=== PATIENT | male | born 1950 | race Caucasian/White ===

== ENCOUNTER → 2016-04-25 | Outpatient (CLI) | payer MEDICARE, OTHER ==
[~2016-04-25] MED LIST: ALTA10CA OR; AMLO5TAB; AMLO5TAB OR; ANTARA; ANTARA PO; ASPI325T; BACT800T OR; CARV25TA; CARV25TA OR; CITA20TA4 PO; CORE12.5; CORE20CA; CORE25TA; CORE80CA; CORE80CA OR; DIOV320T; DIOV320T OR; DOXY-278 PO; DOXY100C PO; FLOM5CAP PO; GABA300C3 PO; GLUC1000; GLUC1000 OR; GLYBPOW; HYDR25TAB PO; INSUHUMDS SC; INSULANT; INSULANT SC; KEFL500C OR; LEVE1INJ5 SC; LISI40TAB PO; NORV5TAB PO; PLAV75TA38 PO; REMIPRIL; TYLE1TAB5 PO; VYTO10TA5; VYTO10TA5 OR; ZOCO40TA; [UNRECOGNIZED DRUG - CODE]
[2016-04-25 12:33] LABS: MEAN CORPUSCULAR HEMOGLOBIN 29.6 pg (27.0-33.0); MEAN CORPUSCULAR HGB CONC 33.5 g/dl (32.0-36.5); MEAN CORPUSCULAR VOLUME 88.4 fl (80.0-96.0); RED CELL DISTRIBUTION WIDTH 14.1 % (11.5-14.5)
[2016-04-25 13:27] LABS: ALBUMIN 3.1 GM/DL (3.2-5.2); ALKALINE PHOSPHATASE 99 U/L (45-117); ALT/SGPT 12 U/L (12-78); ANION GAP 11 MEQ/L (8-16); AST/SGOT 15 U/L (15-37); BILIRUBIN,DIRECT < 0.1 MG/DL (0.0-0.2); BILIRUBIN,TOTAL 0.5 MG/DL (0.2-1.0); BLOOD UREA NITROGEN 21 MG/DL (7-18); CALCIUM LEVEL 8.7 MG/DL (8.8-10.2); CARBON DIOXIDE LEVEL 23 MEQ/L (21-32); CHLORIDE LEVEL 109 MEQ/L (98-107); CREATININE FOR GFR 0.87 MG/DL (0.70-1.30); GLOMERULAR FILTRATION RATE > 60.0 (>49); GLUCOSE, FASTING 136 MG/DL (80-110); PHOSPHORUS LEVEL 2.9 MG/DL (2.5-4.9); POTASSIUM SERUM 4.3 MEQ/L (3.5-5.1); SODIUM LEVEL 143 MEQ/L (136-145); TOTAL PROTEIN 7.5 GM/DL (6.4-8.2)
== END ==
LOC: M LAB 11:37
PROVIDERS: ATTEND Nurse Practitioner Family
DX: I11.9 Hypertensive heart disease without heart failure (principal)

== ENCOUNTER → 2016-04-25 | Outpatient (CLI) | payer MEDICARE, OTHER | LOC: M LAB 10:09 | PROVIDERS: ATTEND Internal Medicine Infectious Disease | DX: M86.9 Osteomyelitis, unspecified (principal) ==

== ENCOUNTER → 2016-05-09 | Outpatient (CLI) | payer OTHER ==
[~2016-05-09] MED LIST changes: -DOXY-278 PO; -HYDR25TAB PO; -LEVE1INJ5 SC; -NORV5TAB PO
[2016-05-09 16:37] LABS: BASO # 0.2 K/mm3 (0.0-0.2); BASO % 1.7 % (0.0-1.0); EOS # 0.3 K/mm3 (0.0-0.50); EOS % 3.5 % (0.0-3.0); LARGE UNSTAINED CELL # 0.2 K/mm3 (0.0-0.4); LYMPH # 2.4 K/mm3 (1.5-4.5); LYMPH % 24.8 % (24.0-44.0); MEAN CORPUSCULAR HEMOGLOBIN 30.3 pg (27.0-33.0); MEAN CORPUSCULAR HGB CONC 33.4 g/dl (32.0-36.5); MEAN CORPUSCULAR VOLUME 90.7 fl (80.0-96.0); MONO # 0.6 K/mm3 (0.0-0.8); MONO % 6.7 % (0.0-5.0); NEUTROPHILS # 5.6 K/mm3 (1.8-7.7); NEUTROPHILS % 61.3 % (36.0-66.0); PLATELET COUNT, AUTOMATED 204 k/mm3 (150-450); RED CELL DISTRIBUTION WIDTH 14.2 % (11.5-14.5); WHITE BLOOD COUNT 9.1 K/mm3 (4.0-10.0)
[2016-05-09 17:13] LABS: ALBUMIN 3.2 GM/DL (3.2-5.2); ALBUMIN/GLOBULIN RATIO 0.71 (1.00-1.93); ALKALINE PHOSPHATASE 115 U/L (45-117); ALT/SGPT 13 U/L (12-78); ANION GAP 8 MEQ/L (8-16); AST/SGOT 10 U/L (15-37); BILIRUBIN,TOTAL 0.8 MG/DL (0.2-1.0); BLOOD UREA NITROGEN 17 MG/DL (7-18); CALCIUM LEVEL 8.8 MG/DL (8.8-10.2); CARBON DIOXIDE LEVEL 30 MEQ/L (21-32); CHLORIDE LEVEL 103 MEQ/L (98-107); CHOLESTEROL LEVEL 107 MG/DL (<200); CREATININE FOR GFR 0.93 MG/DL (0.70-1.30); GLOMERULAR FILTRATION RATE > 60.0 (>49); GLUCOSE, FASTING 148 MG/DL (80-110); SODIUM LEVEL 141 MEQ/L (136-145); TOTAL PROTEIN 7.7 GM/DL (6.4-8.2); TRIGLYCERIDES LEVEL 116 MG/DL (<150)
== END ==
LOC: M LAB 15:35
PROVIDERS: ATTEND Physician Assistant Medical
DX: E11.9 Type 2 diabetes mellitus without complications (principal)

== ENCOUNTER → 2016-05-23 | Outpatient (CLI) | payer MEDICARE, OTHER ==
[~2016-05-23] VITALS: Ht 175.3 cm; Wt 87.9 kg
[~2016-05-23] MED LIST changes: +D5W 1,000 ML IV SCH; +DOXY-278 PO; +HYDR25TAB PO; +LEVE1INJ5 SC; +LIDOCAINE VISCOUS 2% SOLN 15ML UDC As Ordered ONE; +MIDAZOLAM INJ 2 MG/2 ML VIAL (J2250) As Ordered ONE; +NORV5TAB PO
[2016-05-23 15:44] VITALS: BP 145/68
--- NOTE | 2016-05-23 15:45 | T-ECHO ---
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 POSTPROCEDURE DIAGNOSES: Mild aortic valve sclerosis. FINDINGS: Mild aortic valve sclerosis, otherwise normal heart. The presence of moderate atheroma involving the distal aortic arch and descending thoracic aorta. PROCEDURE: Transesophageal echocardiogram without saline contrast. SURGEON: Bolivar Morgan MD JAPANESE INTERPRETER: None. SEDATION: Light conscious sedation with midazolam 4 mg IV. COMPLICATIONS: None. DESCRIPTION OF PROCEDURE: Rhythm appeared to be sinus. The patient received viscous lidocaine to gargle prior to the start of the procedure. He received a total of 4 mg of midazolam IV for light conscious sedation. The patient tolerated the procedure well without any immediate complications. Esophageal intubation was accomplished without difficulty using a Becka multiplane two-dimensional transesophageal echocardiogram probe. The left and right ventricles appeared normal in size and systolic function and without regional wall motion abnormalities. Atrial septum appeared intact anatomically and by color flow Doppler. Pulmonary vein connections to the left atrium were normal and pulmonary vein flow in the left upper pulmonary vein was normal. No intracardiac masses or thrombi. Left atrial appendage appeared normal. The aortic valve was three-cuspid and displayed mild focal thickening and focal cusp deposits. No aortic regurgitation. Mitral leaflets were structurally and functionally normal. Very mild mitral regurgitation was present and within normal limits. Tricuspid and pulmonic valves only moderately visualized but appeared structurally normal. No pericardial effusion. Distally aortic arch and descending thoracic aorta showed mild atheroma without mobile components. CONCLUSIONS: 1. 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 No aortic regurgitation. 2. No vegetations. 3. Moderate atheroma involving distal aortic arch and descending thoracic aorta. 4. Normal left ventricle size and systolic function.
== END ==
LOC: M OPP 13:49
PROVIDERS: ATTEND Internal Medicine Cardiovascular Disease
DX: R93.1 Abnormal findings on diagnostic imaging of heart and coronary circulation (principal); I35.9 Nonrheumatic aortic valve disorder, unspecified; I70.0 Atherosclerosis of aorta
CPT/HCPCS: 93312; 93320; 93325; J2250

== ENCOUNTER → 2016-09-05 | Outpatient (REF) | payer MEDICARE, OTHER ==
[~2016-09-05] MED LIST changes: +ATOR80TA59 PO; +BACT800T5 PO; +CARV3.12 PO; +CLEO300C2 PO; -D5W 1,000 ML IV SCH; +GABA-282 PO; -GABA300C3 PO; -LIDOCAINE VISCOUS 2% SOLN 15ML UDC As Ordered ONE; +LISI40TAB; +METF500T13 PO; -MIDAZOLAM INJ 2 MG/2 ML VIAL (J2250) As Ordered ONE; +NAPR250T4 PO; +OMEP20CA3; +PLAV1TAB2 PO; -PLAV75TA38 PO
[2016-09-05 13:30] LABS: ALBUMIN 3.2 GM/DL (3.2-5.2); ALKALINE PHOSPHATASE 118 U/L (45-117); ALT/SGPT 14 U/L (12-78); ANION GAP 7 MEQ/L (8-16); AST/SGOT 13 U/L (15-37); BILIRUBIN,TOTAL 0.2 MG/DL (0.2-1.0); BLOOD UREA NITROGEN 12 MG/DL (7-18); CALCIUM LEVEL 8.6 MG/DL (8.8-10.2); CARBON DIOXIDE LEVEL 29 MEQ/L (21-32); CHLORIDE LEVEL 107 MEQ/L (98-107); CREATININE FOR GFR 0.93 MG/DL (0.70-1.30); GLOMERULAR FILTRATION RATE > 60.0 (>49); GLUCOSE, FASTING 143 MG/DL (80-110); POTASSIUM SERUM 4.2 MEQ/L (3.5-5.1); SODIUM LEVEL 143 MEQ/L (136-145); TOTAL PROTEIN 7.2 GM/DL (6.4-8.2)
== END ==
LOC: M LAB REF 12:41
PROVIDERS: ATTEND Nurse Practitioner Family
DX: E11.9 Type 2 diabetes mellitus without complications (principal)

== ENCOUNTER → 2016-10-09 | Outpatient (CLI) | payer MEDICARE, OTHER ==
[~2016-10-09] MED LIST changes: +ATOR1TAB18 PO; -ATOR80TA59 PO; -CARV3.12 PO; -CLEO300C2 PO; -LISI40TAB; +METF500T PO; -METF500T13 PO; -NAPR250T4 PO; -OMEP20CA3; -PLAV1TAB2 PO; +PLAV75TA38 PO
--- NOTE | 2016-10-09 14:21 | REP ---
Clinical: Type 2 diabetes. Comparison: 04/14/2016 . Technique: PA and lateral. Findings: The mediastinum and cardiac silhouette are normal. The lung hoffman are clear and without acute consolidation, effusion, or pneumothorax. The skeletal structures are intact and normal. Impression: 1. No acute cardiopulmonary process. Signed by Ambrose Juan MD 10/09/2016 02:13 P
[2016-10-09 14:24] LABS: MEAN CORPUSCULAR HEMOGLOBIN 27.2 pg (27.0-33.0); MEAN CORPUSCULAR HGB CONC 32.2 g/dl (32.0-36.5); MEAN CORPUSCULAR VOLUME 84.7 fl (80.0-96.0); RED CELL DISTRIBUTION WIDTH 14.6 % (11.5-14.5); WHITE BLOOD COUNT 6.7 K/mm3 (4.0-10.0)
[2016-10-09 14:28] LABS: INR 1.07
[2016-10-09 15:39] LABS: ANION GAP 5 MEQ/L (8-16); BLOOD UREA NITROGEN 17 MG/DL (7-18); CALCIUM LEVEL 9.3 MG/DL (8.8-10.2); CARBON DIOXIDE LEVEL 31 MEQ/L (21-32); CHLORIDE LEVEL 103 MEQ/L (98-107); CREATININE FOR GFR 0.99 MG/DL (0.70-1.30); GLOMERULAR FILTRATION RATE > 60.0 (>49); GLUCOSE, FASTING 160 MG/DL (80-110); POTASSIUM SERUM 4.2 MEQ/L (3.5-5.1); SODIUM LEVEL 139 MEQ/L (136-145)
--- NOTE | 2016-10-11 07:25 | ECGEPIP ---
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
== END ==
LOC: M LAB 13:05
PROVIDERS: ATTEND Nurse Practitioner Family
DX: Z01.818 Encounter for other preprocedural examination (principal); E11.9 Type 2 diabetes mellitus without complications; N52.9 Male erectile dysfunction, unspecified; Z96.89 Presence of other specified functional implants; Z79.899 Other long term (current) drug therapy

== ENCOUNTER → 2016-10-11 | Day surgery (SDC) | payer MEDICARE, OTHER ==
[~2016-10-11] VITALS: Ht 175.3 cm; Wt 90.7 kg
[~2016-10-11] MED LIST changes: -ATOR1TAB18 PO; +ATOR80TA59 PO; +BACITRACIN OINT 30GM As Ordered ONE; +BACTRIM IV 160MG-800MG/10ML VIAL (S0039) XX ONE; +CARV3.12 PO; +CLEO300C2 PO; +DESFLURANE 240 ML INHALANT As Ordered ONE; +GENTAMICIN 100 MG in APPROPRIATE DILUENT 1 EA IV ONE; +GENTAMICIN SULF INJ 80MG/2ML VIAL (J1580) As Ordered ONE; +HYDROmorphone HCL 2 MG/ML 1ML VIAL (J1170) As Ordered ONE; +LIDOCAINE 1% SDV 5 ML VIAL SQ PRN; +LISI40TAB; +LR 1,000 ML IV ONE; +LR 1,000 ML IV SCH; +MEPERIDINE INJ 25 MG/ML VIAL (J2175) IV PRN; -METF500T PO; +METF500T13 PO; +METOCLOPRAMIDE INJ 10MG/2ML VIAL (J2765) As Ordered ONE; +METOCLOPRAMIDE INJ 10MG/2ML VIAL (J2765) IV PRN; +MIDAZOLAM INJ 2 MG/2 ML VIAL (J2250) As Ordered ONE; +NAPR250T4 PO; +OMEP20CA3; +ONDANSETRON 4MG/2ML VIAL (J2405) As Ordered ONE; +ONDANSETRON 4MG/2ML VIAL (J2405) IV PRN; +PERCOCET 5MG/325MG TAB PO PRN; +PLAV1TAB2 PO; -PLAV75TA38 PO; +PROPOFOL 500 MG/50 ML VIAL As Ordered ONE; +VANCOMYCIN HCL 1,000 MG, VIAL MATE ADAPTER 1 EACH in D5W 250 ML IV ONE; +ePHEDrine SULFATE 25 MG/5 ML(5MG/ML) SYRINGE As Ordered ONE; +fentaNYL 100 MCG/2 ML INJECTION (J3010) As Ordered ONE
[2016-10-11] MEDS: fentaNYL 100 MCG/2 ML INJECTION (J3010) IV PRN ×2 (12:38→12:45)
[2016-10-11 18:50] VITALS: BP 155/60
--- NOTE | 2016-10-12 11:25 | RO ---
DATE OF PROCEDURE: 10/11/2016 PREPROCEDURE DIAGNOSIS: Malfunctioning penile prosthesis. POSTPROCEDURE DIAGNOSIS: Malfunctioning penile prosthesis. FINDINGS: AMS penile implant that does not inflate and deflate. PROCEDURE: Penile implant explantation (AMS inflatable penile implant with two rear tips) plus inflatable penile implant placement (Coloplast Titan 20 cm bilateral and clover leaf reservoir). No rear TIPS were placed. SURGEON: Dr. Casimiro Acuna. ARBORICULTURE TEACHER: None. ANESTHESIA: General. COMPLICATIONS: None. ESTIMATED BLOOD LOSS: 50 mL. HISTORY OF PRESENT ILLNESS: This is a 65-year-old male patient that has an inflatable penile implant placed more than 10 years ago. The patient has pain and has difficulty activating the penile implant. The penile implant does not work and has malfunctioning to actually inflate and deflate. For this reason, the patient has consented for a penile implant explantation plus inflatable penile implant placement type and Coloplast with clover lead reservoir. DESCRIPTION OF OPERATION: With patient in supine position after prepping and draping the area of concern which included the entire genitalia and abdomen, we started by introducing a #16-Zimbabwean Raya catheter to drain the bladder, inflated the balloon to 10 mL. We then prepped again with Chloraprep and then proceeded to do an incision of about 5 cm in length in the midline of the penile scrotal area. With electro Bovie cautery, we then excised the penile pump and following the tubings into the corpora cavernosa on both sides. With electro Bovie cautery, we opened the corpora cavernosa on both sides longitudinally for about 2 cm in length and extracted the left and right cylinders of the penile implant. We then rubber shod the tubing to the reservoir and extracted the penile implant and the pump. We then proceeded the following the tubing of the reservoir out to the external inguinal ring. We then proceeded to dissect the sternal inguinal ring and dissect the tubing. We deflated the reservoir with a 60 mL syringe. After this, after pulling and tractioning, the reservoir came out intact. We then proceeded to use a Jakub irrigation with betadine, peroxide and normal saline mixed with gentamicin into the reservoir area in the area of the groin and also in the corpora cavernosa and the place where the penile pump was in the scrotum. After irrigating multiple times, we irrigated with normal saline and gentamicin and then placed the new implant. We measured both corpora cavernosa to 20 cm in length. For this reason, we used a 20 cm in length inflatable penile prosthesis type and Coloplast. We then proceeded to place the Coloplast inflatable implant with the help of a Evans. After placing the Coloplast implant, we tested the Coloplast for inflating and deflating, it inflated and deflated completely well. For this reason, we closed the corpora cavernostomies with #2-0 Vicryl in separate stitches and the proceeded to actually place the clover lead reservoir on the left area of the Retzius space going through the old placement of the old reservoir going through the external inguinal ring. Once the new clover leaf reservoir was placed, the inflated the clover lead reservoir with 60 mL. We left inside the penile implant around 15 mL of normal saline also. We then proceeded to connect the tubes and did a pouch in the scrotal sac to place the pump. We then proceeded the close the incision in two layers with a running #2-0 Vicryl and close the skin with #4-0 Monocryl in running suture. We placed bacitracin cream. We cut the strings of the penile implant and took out the Raya catheter. PLAN: The patient will pass to recovery then will go home. He will take Bactrim double strength one tablet by mouth for 3 weeks. He will take Percocet for pain. He will followup in 3 days for removal of the bandages. There were no complications during surgery. The old penile implant was sent for pathology analysis. MORELIA
== END | disposition home or self-care (01) ==
LOC: M SDC 07:08
PROVIDERS: ATTEND Urology
DX: T83.410A Breakdown (mechanical) of implanted penile prosthesis, initial encounter (principal); X58.XXXA Exposure to other specified factors, initial encounter; Y92.89 Other specified places as the place of occurrence of the external cause; Y93.89 Activity, other specified; Y99.8 Other external cause status; I10 Essential (primary) hypertension; E11.9 Type 2 diabetes mellitus without complications; E78.00 Pure hypercholesterolemia, unspecified; I73.9 Peripheral vascular disease, unspecified; K21.9 Gastro-esophageal reflux disease without esophagitis; L97.509 Non-pressure chronic ulcer of other part of unspecified foot with unspecified severity; Z79.899 Other long term (current) drug therapy; Z79.4 Long term (current) use of insulin; Z79.82 Long term (current) use of aspirin; Z79.84 Long term (current) use of oral hypoglycemic drugs; Z86.14 Personal history of Methicillin resistant Staphylococcus aureus infection; Z85.51 Personal history of malignant neoplasm of bladder; Z92.21 Personal history of antineoplastic chemotherapy; Z92.3 Personal history of irradiation; Z86.59 Personal history of other mental and behavioral disorders
CPT/HCPCS: 54405; 88300; C1813; J1170; J1580; J2250; J2405; J2765; J3010; J3370

== ENCOUNTER 2016-12-23 09:00 | Emergency (ER) | payer MEDICARE, OTHER ==
[~2016-12-23] VITALS: Ht 175.3 cm; Wt 87.6 kg
[~2016-12-23 09:00] MED LIST changes: -BACITRACIN OINT 30GM As Ordered ONE; -BACTRIM IV 160MG-800MG/10ML VIAL (S0039) XX ONE; -CARV3.12 PO; -CLEO300C2 PO; -DESFLURANE 240 ML INHALANT As Ordered ONE; -GENTAMICIN 100 MG in APPROPRIATE DILUENT 1 EA IV ONE; -GENTAMICIN SULF INJ 80MG/2ML VIAL (J1580) As Ordered ONE; -HYDROmorphone HCL 2 MG/ML 1ML VIAL (J1170) As Ordered ONE; -LIDOCAINE 1% SDV 5 ML VIAL SQ PRN; -LISI40TAB; -LR 1,000 ML IV ONE; -LR 1,000 ML IV SCH; -MEPERIDINE INJ 25 MG/ML VIAL (J2175) IV PRN; -METOCLOPRAMIDE INJ 10MG/2ML VIAL (J2765) As Ordered ONE; -METOCLOPRAMIDE INJ 10MG/2ML VIAL (J2765) IV PRN; -MIDAZOLAM INJ 2 MG/2 ML VIAL (J2250) As Ordered ONE; -NAPR250T4 PO; -OMEP20CA3; -ONDANSETRON 4MG/2ML VIAL (J2405) As Ordered ONE; -ONDANSETRON 4MG/2ML VIAL (J2405) IV PRN; -PERCOCET 5MG/325MG TAB PO PRN; -PROPOFOL 500 MG/50 ML VIAL As Ordered ONE; -VANCOMYCIN HCL 1,000 MG, VIAL MATE ADAPTER 1 EACH in D5W 250 ML IV ONE; -ePHEDrine SULFATE 25 MG/5 ML(5MG/ML) SYRINGE As Ordered ONE; -fentaNYL 100 MCG/2 ML INJECTION (J3010) As Ordered ONE
[2016-12-23] MEDS ORDERED: OMEP20CA3 (09:14)
[2016-12-23] MEDS ORDERED: LISI40TAB (09:14)
[2016-12-23 10:05] LABS: BASO # 0.1 K/mm3 (0.0-0.2); EOS # 0.3 K/mm3 (0.0-0.50); EOS % 3.4 % (0.0-3.0); LARGE UNSTAINED CELL # 0.2 K/mm3 (0.0-0.4); LARGE UNSTAINED CELL % 1.6 % (0.0-4.0); LYMPH # 2.2 K/mm3 (1.5-4.5); LYMPH % 20.3 % (24.0-44.0); MEAN CORPUSCULAR HEMOGLOBIN 27.1 pg (27.0-33.0); MEAN CORPUSCULAR HGB CONC 31.2 g/dl (32.0-36.5); MONO # 0.6 K/mm3 (0.0-0.8); MONO % 5.9 % (0.0-5.0); NEUTROPHILS # 6.7 K/mm3 (1.8-7.7); NEUTROPHILS % 67.8 % (36.0-66.0); PLATELET COUNT, AUTOMATED 269 k/mm3 (150-450); RED CELL DISTRIBUTION WIDTH 15.4 % (11.5-14.5); WHITE BLOOD COUNT 9.9 K/mm3 (4.0-10.0)
[2016-12-23 10:14] LABS: ANION GAP 8 MEQ/L (8-16); BLOOD UREA NITROGEN 31 MG/DL (7-18); CALCIUM LEVEL 9.4 MG/DL (8.8-10.2); CARBON DIOXIDE LEVEL 29 MEQ/L (21-32); CHLORIDE LEVEL 103 MEQ/L (98-107); CREATININE FOR GFR 1.21 MG/DL (0.70-1.30); GLOMERULAR FILTRATION RATE > 60.0 (>49); GLUCOSE, FASTING 377 MG/DL (80-110); POTASSIUM SERUM 4.4 MEQ/L (3.5-5.1); SODIUM LEVEL 140 MEQ/L (136-145)
--- NOTE | 2016-12-23 11:32 | REP ---
Clinical: Diabetic foot. Technique: AP, lateral, bilateral oblique views of the right foot. Comparison: 03/23/2016. 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 Erosive changes involving the distal first and second phalanges is appreciated when compared to prior examination. There is no associated subcutaneous emphysema. No acute fracture dislocation. Vascular calcifications are identified. Impression: Erosive changes involving the first and second distal phalanges with mild overlying soft tissue swelling. No subcutaneous emphysema. Signed by Ambrose Juan MD 12/23/2016 11:22 A
[2016-12-23] MEDS ORDERED: CLEO300C2 PO (13:29)
[2016-12-23] MEDS ORDERED: NAPR250T4 PO (13:29)
[2016-12-23] MEDS ORDERED: CLINDAMYCIN 150 MG CAP PO ONE (13:30)
[2016-12-23] MEDS ORDERED: KETOROLAC 30 MG/ML VIAL (J1885) IM ONE (13:30)
[2016-12-23 13:53] VITALS: BP 175/74
--- NOTE | 2016-12-23 14:12 | ER ---
DATE OF CONSULTATION: 12/23/2016 REQUESTING PHYSICIAN: Emergency room personnel. CHIEF COMPLAINT: Penile pain. HISTORY OF THE PRESENT ILLNESS: Mr. Edouard presented to the emergency room today with complaints of right foot pain related to a chronic toe infection and penile pain. I was asked to see him about the penile pain. He says that shortly after his last visit with Dr. Acuna on 12/04/2016, he developed pain in his penis, which has been increasing in degree since then. He thinks there has been some mild erythema of the left distal shaft of the penis. No chills or fever. He had a malfunctioning AMS penile prosthesis that was also chronically hurting him, on 10/11/2016, a Coloplast three-piece device was inserted on that same day. PAST MEDICAL HISTORY: Includes transurethral resection of prostate, history of bladder cancer with endoscopic procedures. He has had umbilical hernia performed. Right femoral artery stent placement. He is followed for medical problems of hypertension, diabetes, peripheral vascular disease, elevated cholesterol, maybe chronic obstructive pulmonary disease (COPD) and gastrointestinal (GI) reflux. SOCIAL HISTORY: A history of smoking. ALLERGIES: None. CHRONIC MEDICATIONS: Include insulin, hydrochlorothiazide, amlodipine, metformin, atorvastatin, omeprazole. PHYSICAL EXAMINATION: Examination pretty much limited to the genitalia. He has a left inguinal scar that looks old. He has an upper scrotal incision that appears to be well healed and not infected. The inflatable penile prosthesis shows just some minimal inflammation in the cylinders. There is tenderness fairly diffusely of the penile shaft, and particularly out toward the glans. There may be some very mild skin erythema of the distal left shaft. There is the usual crepitance that you can feel with the Coloplast cylinders. There is no mass effect or distortion of the actual penile anatomy. The pump itself is in good position in the scrotum. I did not attempt to inflate or deflate the device. There is very minimal tenderness around the pump, and I do not appreciate any scrotal erythema or swelling. Inguinal areas are normal. Labs today were reviewed and include a white blood cell count of 9700 with 68 segmented neutrophils and sedimentation rate is 72. IMPRESSION: 1. Penile pain status post insertion of a replacement three piece inflatable penile prosthesis on 10/11/2016 with pain, which may signify an underlying infection of the device, but at this point, I do not think the infection is obvious. 2. Diabetes mellitus. 3. History of bladder cancer. 4. Peripheral vascular disease. PLAN: Discussed with the emergency room physician's volunteer assistant seeing him in the emergency room. He will be placed on clindamycin orally. I will be in touch with the urology office and ask them to see him within the next week. His pain will be addressed with oral pain medication as well.
== END 2016-12-23 13:55 | disposition home or self-care (01) ==
LOC: M ED 09:00
DX: N48.22 Cellulitis of corpus cavernosum and penis (principal); E11.621 Type 2 diabetes mellitus with foot ulcer; I10 Essential (primary) hypertension; J45.909 Unspecified asthma, uncomplicated; E78.00 Pure hypercholesterolemia, unspecified; K21.9 Gastro-esophageal reflux disease without esophagitis; G89.29 Other chronic pain; M54.9 Dorsalgia, unspecified; F41.9 Anxiety disorder, unspecified; F33.9 Major depressive disorder, recurrent, unspecified; Z85.51 Personal history of malignant neoplasm of bladder; Z79.899 Other long term (current) drug therapy; Z79.4 Long term (current) use of insulin; Z87.891 Personal history of nicotine dependence
CPT/HCPCS: 36415; 73630; 80048; 85025; 85652; 86140; 87070; 87077; 87186; 96372; 99282; J1885

== ENCOUNTER → 2016-12-25 | Outpatient (REF) | payer MEDICARE, OTHER ==
[~2016-12-25] MED LIST changes: +CARV3.12 PO; +CLEO300C2 PO; +LISI40TAB; +NAPR250T4 PO; +OMEP20CA3
== END ==
LOC: M SMT 13:18
PROVIDERS: ATTEND Nurse Practitioner Women's Health
DX: N52.9 Male erectile dysfunction, unspecified (principal); Z79.899 Other long term (current) drug therapy

== ENCOUNTER → 2017-01-04 | Outpatient (CLI) | payer MEDICARE, OTHER ==
[2017-01-04 10:39] LABS: MEAN CORPUSCULAR HEMOGLOBIN 27.2 pg (27.0-33.0); MEAN CORPUSCULAR VOLUME 84.8 fl (80.0-96.0); RED CELL DISTRIBUTION WIDTH 15.2 % (11.5-14.5); WHITE BLOOD COUNT 8.9 K/mm3 (4.0-10.0)
[2017-01-04 10:55] LABS: ANION GAP 8 MEQ/L (8-16); BLOOD UREA NITROGEN 26 MG/DL (7-18); CARBON DIOXIDE LEVEL 25 MEQ/L (21-32); CHLORIDE LEVEL 107 MEQ/L (98-107); CREATININE FOR GFR 1.05 MG/DL (0.70-1.30); GLOMERULAR FILTRATION RATE > 60.0 (>49); GLUCOSE, FASTING 234 MG/DL (80-110); POTASSIUM SERUM 4.8 MEQ/L (3.5-5.1); SODIUM LEVEL 140 MEQ/L (136-145)
== END ==
LOC: M LAB 09:40
PROVIDERS: ATTEND Urology
DX: N48.89 Other specified disorders of penis (principal); G62.9 Polyneuropathy, unspecified; Z79.899 Other long term (current) drug therapy; Z79.82 Long term (current) use of aspirin; Z79.4 Long term (current) use of insulin
CPT/HCPCS: 11042; 36415; 80048; 81001; 85027; 85652; 86140; 87086; G0463

== ENCOUNTER 2017-02-08 16:36 | Emergency (ER) | payer MEDICARE, OTHER ==
[~2017-02-08] VITALS: Ht 175.3 cm; Wt 78.6 kg
[~2017-02-08 16:36] MED LIST changes: -CARV3.12 PO
[2017-02-08 17:05] VITALS: BP 196/82
[2017-02-08 17:33] LABS: BASO # 0.1 10^3/uL (0.0-0.2); BASO % 1.5 % (0.0-1.0); EOS # 0.4 10^3/uL (0.0-0.50); EOS % 5.1 % (0.0-3.0); IMMATURE GRANULOCYTE % 0.4 % (0-0); LYMPH # 2.6 10^3/uL (1.5-4.5); LYMPH % 36.4 % (24.0-44.0); MEAN CORPUSCULAR HEMOGLOBIN 26.1 pg (27.0-33.0); MEAN CORPUSCULAR HGB CONC 31.3 g/dl (32.0-36.5); MEAN CORPUSCULAR VOLUME 83.6 fl (80.0-96.0); MONO # 0.7 10^3/uL (0.0-0.8); MONO % 9.3 % (0.0-5.0); NEUTROPHILS # 3.4 10^3/uL (1.8-7.7); NEUTROPHILS % 47.3 % (36.0-66.0); PLATELET COUNT, AUTOMATED 264 10^3/uL (150-450); RED CELL DISTRIBUTION WIDTH 14.1 % (11.5-14.5); WHITE BLOOD COUNT 7.1 10^3/uL (4.0-10.0)
--- NOTE | 2017-02-08 17:56 | REP ---
Bilateral lower extremity deep vein duplex ultrasound The deep veins demonstrate normal compression, normal Doppler color flow and normal Doppler waveforms with respiration and augmentation from the popliteal veins to the common femoral veins. Impression: There is no deep vein thrombus on the right on the left . Signed by Hayes Torres MD 02/08/2017 05:48 P
[2017-02-08 18:11] LABS: ALBUMIN 3.1 GM/DL (3.2-5.2); ALKALINE PHOSPHATASE 103 U/L (45-117); ALT/SGPT 13 U/L (12-78); ANION GAP 9 MEQ/L (8-16); AST/SGOT 11 U/L (15-37); BILIRUBIN,DIRECT < 0.1 MG/DL (0.0-0.2); BILIRUBIN,TOTAL 0.3 MG/DL (0.2-1.0); BLOOD UREA NITROGEN 12 MG/DL (7-18); CALCIUM LEVEL 8.8 MG/DL (8.8-10.2); CARBON DIOXIDE LEVEL 24 MEQ/L (21-32); CHLORIDE LEVEL 103 MEQ/L (98-107); CREATININE FOR GFR 0.91 MG/DL (0.70-1.30); GLOMERULAR FILTRATION RATE > 60.0 (>49); GLUCOSE, FASTING 239 MG/DL (80-110); POTASSIUM SERUM 4.4 MEQ/L (3.5-5.1); SODIUM LEVEL 136 MEQ/L (136-145); TOTAL PROTEIN 7.5 GM/DL (6.4-8.2)
[2017-02-08] MEDS ORDERED: CARV3.12 PO (18:20)
--- NOTE | 2017-02-09 07:22 | ECGEPIP ---
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
== END 2017-02-08 18:38 | disposition home or self-care (01) ==
LOC: M ED 16:36
DX: I10 Essential (primary) hypertension (principal); E11.9 Type 2 diabetes mellitus without complications; Z79.4 Long term (current) use of insulin; R60.0 Localized edema; G62.9 Polyneuropathy, unspecified; Z87.891 Personal history of nicotine dependence

== ENCOUNTER → 2017-06-21 | Outpatient (CLI) | payer MEDICARE, OTHER | LOC: M RAD 12:15 | DX: E11.621 Type 2 diabetes mellitus with foot ulcer (principal); E11.40 Type 2 diabetes mellitus with diabetic neuropathy, unspecified; I73.9 Peripheral vascular disease, unspecified; I10 Essential (primary) hypertension; R93.7 Abnormal findings on diagnostic imaging of other parts of musculoskeletal system | CPT/HCPCS: 73660 ==

== ENCOUNTER → 2017-06-21 | Outpatient (REF) | payer MEDICARE, OTHER ==
[2017-06-21 18:54] LABS: BASO # 0.1 10^3/uL (0.0-0.2); BASO % 1.1 % (0.0-1.0); EOS # 0.3 10^3/uL (0.0-0.50); IMMATURE GRANULOCYTE % 0.6 % (0-3.0); LYMPH # 1.8 10^3/uL (1.5-4.5); LYMPH % 25.2 % (24.0-44.0); MEAN CORPUSCULAR HEMOGLOBIN 27.1 pg (27.0-33.0); MEAN CORPUSCULAR HGB CONC 31.6 g/dl (32.0-36.5); MEAN CORPUSCULAR VOLUME 85.8 fl (80.0-96.0); MONO # 0.6 10^3/uL (0.0-0.8); MONO % 8.9 % (0.0-5.0); NEUTROPHILS # 4.3 10^3/uL (1.8-7.7); NEUTROPHILS % 60.2 % (36.0-66.0); PLATELET COUNT, AUTOMATED 188 10^3/uL (150-450); RED BLOOD COUNT 4.43 10^6/uL (4.30-6.10); RED CELL DISTRIBUTION WIDTH 14.7 % (11.5-14.5); WHITE BLOOD COUNT 7.2 10^3/uL (4.0-10.0)
[2017-06-21 19:07] LABS: C REACTIVE PROTEIN QUANTITATIV 0.97 MG/DL (0.00-0.30)
[2017-06-21 19:23] LABS: ESTIMATED AVERAGE GLUCOSE 258 MG/DL (60-110); HEMOGLOBIN A1c 10.6 %
[2017-06-21 21:27] LABS: ERYTHROCYTE SEDIMENTATION RATE 45 mm/hr (0-20)
== END ==
LOC: M LAB REF 17:13
DX: E11.621 Type 2 diabetes mellitus with foot ulcer (principal); E11.40 Type 2 diabetes mellitus with diabetic neuropathy, unspecified; I73.9 Peripheral vascular disease, unspecified; I10 Essential (primary) hypertension

== ENCOUNTER → 2017-08-16 | Outpatient (CLI) | payer MEDICARE, OTHER ==
[2017-08-16 17:40] LABS: BASO # 0.1 10^3/uL (0.0-0.2); BASO % 1.5 % (0.0-1.0); EOS # 0.3 10^3/uL (0.0-0.50); EOS % 3.6 % (0.0-3.0); HEMATOCRIT 39.5 % (42.0-52.0); HEMOGLOBIN 12.5 g/dl (13.5-17.5); IMMATURE GRANULOCYTE % 0.6 % (0-3.0); LYMPH # 2.4 10^3/uL (1.5-4.5); LYMPH % 33.5 % (24.0-44.0); MEAN CORPUSCULAR HEMOGLOBIN 26.9 pg (27.0-33.0); MEAN CORPUSCULAR HGB CONC 31.6 g/dl (32.0-36.5); MEAN CORPUSCULAR VOLUME 84.9 fl (80.0-96.0); MONO # 0.7 10^3/uL (0.0-0.8); MONO % 9.1 % (0.0-5.0); NEUTROPHILS # 3.7 10^3/uL (1.8-7.7); NEUTROPHILS % 51.7 % (36.0-66.0); PLATELET COUNT, AUTOMATED 245 10^3/uL (150-450); RED BLOOD COUNT 4.65 10^6/uL (4.30-6.10); RED CELL DISTRIBUTION WIDTH 13.9 % (11.5-14.5); WHITE BLOOD COUNT 7.2 10^3/uL (4.0-10.0)
[2017-08-16 18:26] LABS: ERYTHROCYTE SEDIMENTATION RATE 56 mm/hr (0-20)
== END ==
LOC: M LAB 16:28
DX: M86.179 Other acute osteomyelitis, unspecified ankle and foot (principal)
CPT/HCPCS: 86140

== ENCOUNTER → 2017-10-15 | Outpatient (REF) | payer MEDICARE, OTHER ==
[2017-10-15 19:51] LABS: ALBUMIN 2.8 GM/DL (3.2-5.2); ALBUMIN/GLOBULIN RATIO 0.68 (1.00-1.93); ALKALINE PHOSPHATASE 93 U/L (45-117); ALT/SGPT 16 U/L (12-78); ANION GAP 10 MEQ/L (8-16); AST/SGOT 13 U/L (7-37); BILIRUBIN,TOTAL 0.4 MG/DL (0.2-1.0); BLOOD UREA NITROGEN 11 MG/DL (7-18); CALCIUM LEVEL 8.6 MG/DL (8.8-10.2); CARBON DIOXIDE LEVEL 25 MEQ/L (21-32); CHLORIDE LEVEL 106 MEQ/L (98-107); CREATININE FOR GFR 1.13 MG/DL (0.70-1.30); ESTIMATED AVERAGE GLUCOSE 260 MG/DL (60-110); GLOMERULAR FILTRATION RATE > 60.0 (>49); HEMOGLOBIN A1c 10.7 %; SODIUM LEVEL 141 MEQ/L (136-145); TOTAL PROTEIN 6.9 GM/DL (6.4-8.2)
[2017-10-15 20:15] LABS: GLUCOSE, FASTING 404 MG/DL (70-100)
== END ==
LOC: M LAB REF 17:46
DX: E11.9 Type 2 diabetes mellitus without complications (principal)
CPT/HCPCS: 80053

== ENCOUNTER → 2018-01-31 | Outpatient (REF) | payer OTHER, MEDICARE ==
[2018-01-31 17:59] LABS: ESTIMATED AVERAGE GLUCOSE 249 MG/DL (60-110); HEMOGLOBIN A1c 10.3 %
[2018-01-31 18:00] LABS: ALBUMIN 2.7 GM/DL (3.2-5.2); ALBUMIN/GLOBULIN RATIO 0.68 (1.00-1.93); ALKALINE PHOSPHATASE 98 U/L (45-117); ALT/SGPT 14 U/L (12-78); ANION GAP 7 MEQ/L (8-16); AST/SGOT 14 U/L (7-37); BILIRUBIN,TOTAL 0.6 MG/DL (0.2-1.0); BLOOD UREA NITROGEN 13 MG/DL (7-18); CALCIUM LEVEL 8.4 MG/DL (8.8-10.2); CARBON DIOXIDE LEVEL 31 MEQ/L (21-32); CHLORIDE LEVEL 102 MEQ/L (98-107); CREATININE FOR GFR 1.12 MG/DL (0.70-1.30); GLOMERULAR FILTRATION RATE > 60.0 (>49); GLUCOSE, FASTING 227 MG/DL (70-100); POTASSIUM SERUM 4.2 MEQ/L (3.5-5.1); SODIUM LEVEL 140 MEQ/L (136-145); TOTAL PROTEIN 6.7 GM/DL (6.4-8.2)
== END ==
LOC: M LAB REF 16:49
DX: E11.9 Type 2 diabetes mellitus without complications (principal)

== ENCOUNTER → 2018-06-13 | Outpatient (REF) | payer MEDICARE, OTHER ==
[~2018-06-13] MED LIST changes: +CARV3.12 PO; -DOXY-278 PO; +DOXY-350 PO; +FLOM0.4C39 PO; -FLOM5CAP PO; -GABA-282 PO; +GABA-843 PO; +LISI40TA; +LISI40TA PO; -LISI40TAB; -LISI40TAB PO
[2018-06-13 17:11] LABS: BASO # 0.1 10^3/uL (0.0-0.2); BASO % 1.4 % (0.0-1.0); EOS # 0.3 10^3/uL (0.0-0.50); EOS % 3.5 % (0.0-3.0); HEMATOCRIT 41.1 % (42.0-52.0); HEMOGLOBIN 13.6 g/dl (13.5-17.5); LYMPH # 2.2 10^3/uL (1.5-4.5); LYMPH % 28.9 % (24.0-44.0); MEAN CORPUSCULAR HGB CONC 33.1 g/dl (32.0-36.5); MEAN CORPUSCULAR VOLUME 87.6 fl (80.0-96.0); MONO # 0.5 10^3/uL (0.0-0.8); MONO % 6.9 % (0.0-5.0); NEUTROPHILS # 4.5 10^3/uL (1.8-7.7); NEUTROPHILS % 58.8 % (36.0-66.0); PLATELET COUNT, AUTOMATED 253 10^3/uL (150-450); RED BLOOD COUNT 4.69 10^6/uL (4.30-6.10); WHITE BLOOD COUNT 7.7 10^3/uL (4.0-10.0)
[2018-06-13 17:31] LABS: HEMOGLOBIN A1c 11.7 %
[2018-06-13 17:36] LABS: ALBUMIN 2.4 GM/DL (3.2-5.2); ALT/SGPT 10 U/L (12-78); BILIRUBIN,TOTAL 0.3 MG/DL (0.2-1.0); BLOOD UREA NITROGEN 20 MG/DL (7-18); CALCIUM LEVEL 8.8 MG/DL (8.8-10.2); CARBON DIOXIDE LEVEL 26 MEQ/L (21-32); CHLORIDE LEVEL 103 MEQ/L (98-107); CHOLESTEROL LEVEL 233 MG/DL (<200); CHOLESTEROL RISK RATIO 6.131 (<5); CREATININE FOR GFR 0.87 MG/DL (0.70-1.30); GLOMERULAR FILTRATION RATE > 60.0 (>49); GLUCOSE, FASTING 308 MG/DL (70-100); HDL CHOLESTEROL 38 MG/DL (>40); LDL CHOLESTEROL 150 MG/DL (<100); NON-HDL-C 195 MG/DL; POTASSIUM SERUM 4.3 MEQ/L (3.5-5.1); SODIUM LEVEL 136 MEQ/L (136-145); TOTAL PROTEIN 6.9 GM/DL (6.4-8.2); TRIGLYCERIDES LEVEL 223 MG/DL (<150)
[2018-06-13 19:07] LABS: TOTAL 25(OH) VITAMIN D 9.2 NG/ML (30.0-100.0)
[2018-06-13 19:09] LABS: FOLATE 8.3 NG/ML; VITAMIN B12 LEVEL 1006 PG/ML
== END ==
LOC: M LAB REF 16:43
PROVIDERS: ATTEND Nurse Practitioner Family
DX: I10 Essential (primary) hypertension (principal); E11.9 Type 2 diabetes mellitus without complications; Z13.9 Encounter for screening, unspecified

== ENCOUNTER → 2018-07-18 | Outpatient (CLI) | payer MEDICARE, OTHER ==
[~2018-07-18] MED LIST changes: -CITA20TA4 PO; +CITA20TA6 PO
--- NOTE | 2018-07-18 12:49 | REP ---
HIGH-RESOLUTION SCROTAL SONOGRAPHY: HISTORY: Edema of the scrotum. Painful lump in the left inguinal region. The patient is status post right orchiectomy and penile implant procedures. SCROTAL SONOGRAPHIC FINDINGS: The left testis is normal without evidence of intratesticular mass lesion. Its dimensions are 5.0 x 2.6 x 3.4 cm. Right testis is surgically absent. There is a 3.9 mm epididymal cyst in the head of the epididymis on the left. There is a small left-sided hydrocele. Normal Doppler flow is seen in the left testis with resistive index by Doppler 0.59. The penile implant reservoir is visible in the left groin. IMPRESSION: Small hydrocele. No intratesticular mass lesion. Otherwise negative scrotal sonography patient status post right orchiectomy. Penile implant hardware visible. Electronically Signed by Huang Mora MD 07/18/2018 01:11 P
--- NOTE | 2018-07-18 13:34 | REP ---
LEFT INGUINAL CANAL ULTRASOUND: HISTORY: Lump in the left groin. Status post greater orchiectomy and penile implant. SONOGRAPHIC FINDINGS: There is evidence of a left inguinal hernia containing abdominal fat and bowel loop. It is not reducible with probe pressure. No movement with Valsalva. The canal measures 22 mm in AP dimension at rest and with Valsalva. IMPRESSION: Sonographic features of a left inguinal hernia containing intra-abdominal fat and bowel. Electronically Signed by Huang Mora MD 07/18/2018 02:21 P
== END ==
LOC: M RAD 10:49
PROVIDERS: ATTEND Nurse Practitioner Family
DX: R59.0 Localized enlarged lymph nodes (principal); R10.2 Pelvic and perineal pain; N50.89 Other specified disorders of the male genital organs; N43.3 Hydrocele, unspecified; Z90.79 Acquired absence of other genital organ(s)

== ENCOUNTER → 2018-08-15 | Outpatient (REF) | payer MEDICARE, OTHER ==
[2018-08-15 13:50] LABS: BASO # 0.1 10^3/uL (0.0-0.2); BASO % 1.5 % (0.0-1.0); EOS # 0.3 10^3/uL (0.0-0.50); EOS % 3.9 % (0.0-3.0); HEMATOCRIT 42.2 % (42.0-52.0); HEMOGLOBIN 13.2 g/dl (13.5-17.5); LYMPH # 2.1 10^3/uL (1.5-4.5); LYMPH % 30.6 % (24.0-44.0); MEAN CORPUSCULAR HGB CONC 31.3 g/dl (32.0-36.5); MEAN CORPUSCULAR VOLUME 89.6 fl (80.0-96.0); MONO # 0.6 10^3/uL (0.0-0.8); MONO % 8.2 % (0.0-5.0); NEUTROPHILS # 3.8 10^3/uL (1.8-7.7); NEUTROPHILS % 55.4 % (36.0-66.0); PLATELET COUNT, AUTOMATED 257 10^3/uL (150-450); RED BLOOD COUNT 4.71 10^6/uL (4.30-6.10); WHITE BLOOD COUNT 6.8 10^3/uL (4.0-10.0)
[2018-08-15 14:16] LABS: ALBUMIN 2.5 GM/DL (3.2-5.2); ALT/SGPT 13 U/L (12-78); BILIRUBIN,TOTAL 0.4 MG/DL (0.2-1.0); BLOOD UREA NITROGEN 13 MG/DL (7-18); CALCIUM LEVEL 8.8 MG/DL (8.8-10.2); CARBON DIOXIDE LEVEL 29 MEQ/L (21-32); CHLORIDE LEVEL 106 MEQ/L (98-107); CREATININE FOR GFR 1.06 MG/DL (0.70-1.30); GLOMERULAR FILTRATION RATE > 60.0 (>49); GLUCOSE, FASTING 213 MG/DL (70-100); POTASSIUM SERUM 4.8 MEQ/L (3.5-5.1); SODIUM LEVEL 139 MEQ/L (136-145); TOTAL PROTEIN 6.8 GM/DL (6.4-8.2)
== END ==
LOC: M LAB REF 13:01
PROVIDERS: ATTEND Nurse Practitioner Family
DX: I10 Essential (primary) hypertension (principal)

== ENCOUNTER 2018-08-20 17:45 | Emergency (ER) | payer MEDICARE, OTHER ==
[~2018-08-20] VITALS: Ht 175.3 cm; Wt 88.5 kg
[2018-08-20 18:17] VITALS: BP 180/90
== END 2018-08-20 19:10 | disposition left against medical advice (07) ==
LOC: M ED 17:45
DX: Z53.29 Procedure and treatment not carried out because of patient's decision for other reasons (principal)

== ENCOUNTER → 2018-09-12 | Outpatient (CLI) | payer MEDICARE, OTHER ==
[~2018-09-12] MED LIST changes: +AMLO10TA5 PO; +CLOP75TA2 PO; +FURO40TA2 PO; +GABA-1171 PO; +INSUDET SC; -LISI40TA; +MED REC COMMENT; +METF-877 PO; +NAPR-837 PO; -OMEP20CA3; +OMEP20CA3 PO; +TRAD5TAB PO; +ZOCO80TA PO
[2018-09-12 11:08] LABS: HEMOGLOBIN A1c 9.1 %
== END ==
LOC: M LAB 09:56
PROVIDERS: ATTEND Nurse Practitioner Family
DX: E11.65 Type 2 diabetes mellitus with hyperglycemia (principal)

== ENCOUNTER 2018-09-18 14:42 | Inpatient (IN) | payer MEDICARE, OTHER ==
[~2018-09-18] VITALS: Ht 175.3 cm; Wt 89.4 kg
[~2018-09-18 14:42] MED LIST changes: -AMLO10TA5 PO; -CLOP75TA2 PO; -FURO40TA2 PO; -GABA-1171 PO; -INSUDET SC; -MED REC COMMENT; -METF-877 PO; -NAPR-837 PO; -TRAD5TAB PO; -ZOCO80TA PO
[2018-09-18] MEDS ORDERED: FURO40TA2 PO (14:50)
[2018-09-18] MEDS ORDERED: TRAD5TAB PO (14:50)
[2018-09-18] MEDS ORDERED: LEVE1INJ5 SC (14:50)
[2018-09-18] MEDS ORDERED: GABA-1171 PO (14:50)
[2018-09-18] MEDS ORDERED: CLOP75TA2 PO (14:50)
[2018-09-18 16:03] LABS: BASO # 0.1 10^3/uL (0.0-0.2); BASO % 0.6 % (0.0-1.0); EOS # 0.2 10^3/uL (0.0-0.50); EOS % 1.9 % (0.0-3.0); HEMATOCRIT 35.3 % (42.0-52.0); HEMOGLOBIN 11.1 g/dl (13.5-17.5); LYMPH # 1.5 10^3/uL (1.5-4.5); LYMPH % 12.3 % (24.0-44.0); MEAN CORPUSCULAR HEMOGLOBIN 27.8 pg (27.0-33.0); MEAN CORPUSCULAR HGB CONC 31.4 g/dl (32.0-36.5); MEAN CORPUSCULAR VOLUME 88.3 fl (80.0-96.0); NEUTROPHILS # 9.4 10^3/uL (1.8-7.7); NEUTROPHILS % 76.2 % (36.0-66.0); PLATELET COUNT, AUTOMATED 220 10^3/uL (150-450); WHITE BLOOD COUNT 12.4 10^3/uL (4.0-10.0)
[2018-09-18 16:32] LABS: ERYTHROCYTE SEDIMENTATION RATE 100 mm/hr (0-20)
[2018-09-18 16:35] LABS: C REACTIVE PROTEIN QUANTITATIV 28.4 MG/DL (0.00-0.30); CALCIUM LEVEL 8.5 MG/DL (8.8-10.2); CREATININE FOR GFR 1.66 MG/DL (0.70-1.30); GLOMERULAR FILTRATION RATE 44.1 (>49); POTASSIUM SERUM 3.6 MEQ/L (3.5-5.1)
--- NOTE | 2018-09-18 16:46 | REP ---
Left lower extremity Duplex Doppler venous ultrasound: Real time compression and duplex Doppler interrogation of the left lower extremity deep venous system is performed. The left common femoral, superficial femoral and popliteal veins are fully compressible with transducer pressure and demonstrate normal spontaneous and phasic flow, without evidence of deep venous thrombosis. Impression: No evidence of deep venous thrombosis of the left lower extremity femoral popliteal venous system. Electronically Signed by Hayes Dover MD 09/18/2018 04:38 P
[2018-09-18] MEDS ORDERED: GLUCOSE 4 GM CHEW TABLET PO PRN (17:30)
[2018-09-18] MEDS ORDERED: DEXTROSE 50% 50 ML SYRINGE IV PRN (17:30)
[2018-09-18] MEDS: HumaLOG INSULIN (NovoLOG) PER UNIT SC SCH ×2 (17:30→21:00)
[2018-09-18] MEDS ORDERED: GLUCAGON FOR INJ 1 MG VIAL (J1610) SC PRN (17:30)
--- NOTE | 2018-09-18 17:56 | HPEPDOC ---
General Date of Admission 09/18/18 Date of Service: Sep 18, 2018 Chief Complaint The patient is a 67-year-old male admitted with a reason for visit of Leg Swelling. History of Present Illness Mr. Hannah is a 67 yo male with past medical history of HTN, DM II on insulin, bladder cancer, ED, acute pancreatitis, BPH, cellulitis of feet and hx of toe autoamputation, peripheral neuropathy, anxiety, kidney stones and PAD who presents to the ED with complaints of left LE swelling, pain and redness. He states it started really about 6-8 months ago with his toes on both feet, he states he has been dealing with infections of his toes for a long time, he was seeing Dr Andino office but was discharged from their care a few months back after successful treatment. Unfortunately about a month or so ago he started noting the swelling, redness and pain ascend his left lower extremity, it has gotten progressively worse so he came to the ED today. He denies fever, chills, night sweats, n/v, abdominal pain, diarrhea, pain with urination, CP or SOB, no recent traumatic events to the left lower leg. His biggest complaint is that it is painful. He otherwise has no complaints except for ongoing groin discomfort from a hernia that he states he is going to have surgery for, he does say that the surgeon wants him to see a business analytics manager for clearance. When asked about this, he thinks he has had cardiac cath in the past many years ago but isn't certain, he states he has a stent in his left leg and denies any history of NE. Home Medications Scheduled Amlodipine Besylate (Amlodipine Besylate) 10 Mg Tablet, 10 MG PO DAILY, (Reported) Amoxicillin/Potassium Clav (Amox-Clav 875-125 mg Tablet) 1 Each Tablet, 875 MG PO BID Clopidogrel Bisulfate (Clopidogrel) 75 Mg Tablet, 75 MG PO DAILY, (Reported) Doxycycline Hyclate (Doxycycline Hyclate) 100 Mg Tablet, 100 MG PO BID Furosemide (Furosemide) 40 Mg Tablet, 40 MG PO DAILY Hold for 2 days Gabapentin (Gabapentin) 100 Mg Capsule, 100 MG PO BID, (Reported) Insulin Detemir (Levemir) 100 Unit/1 Ml Vial, 50 UNITS SC QHS Insulin Detemir (Levemir) 100 Unit/1 Ml Vial, 20 UNITS SC QAM Linagliptin (Tradjenta) 5 Mg Tablet, 5 MG PO DAILY, (Reported) Lisinopril (Lisinopril) 40 Mg Tablet, 40 MG PO DAILY, (Reported) Metformin HCl (Metformin HCl) 1,000 Mg Tablet, 1,000 MG PO BID, (Reported) Omeprazole (Omeprazole) 20 Mg Capsule.dr, 20 MG PO ACS, (Reported) Simvastatin (Zocor) 80 Mg Tablet, 80 MG PO DAILY, (Reported) Allergies Coded Allergies: No Known Allergies (Verified , 12/16/08) Past Medical History Medical History as in hpi Surgical History ventral hernia repair x2 TURP 2009 Penile prosthesis repair in 2010 Right vein repair 2016 penile prosthesis replacement 2017 Family History father is , mom has diabetes, siblings have diabetes and "lung disease" and lymphoma Social History * Smoker: former Smoker (quit smoking 10 years ago, used to smoke 20-30 cigs a day for +20 yrs) Alcohol: Denies Drugs: denies single, he has four children, retired, lives by himself A-FIB/CHADSVASC A-FIB History Current/History of A-Fib/PAF?: No Review of Systems Constitutional: Denies: Chills, Fever, Weakness, Fatigue Skin: Reports: Rash (left LE erythema) Pulmonary: Denies: Dyspnea, Cough Cardiovascular: Reports: Edema; Denies: Chest Pain, Palpitations, Lt Headedness Gastrointestinal: Denies: Nausea, Vomiting, Abdominal Pain, Diarrhea, Constipation, Melena Genitourinary: Denies: Dysuria Neurological: Denies: Weakness Psych: Reports: Mood Normal Physical Examination General Exam: Positive: Alert, Cooperative, Mild Distress (from left LE pain) Eye Exam: Positive: EOMI Chest Exam: Positive: Normal air movement, Diminished; Negative: Rales, Rhonchi, Wheezing Heart Exam: Positive: Rate Normal, Normal S1, Normal S2; Negative: Gallops Abdomen Exam: Positive: Normal bowel sounds, Soft, Hernia (left inguinal, reducible ); Negative: Tenderness, Hepatospenomegaly Extremity Exam: Positive: Edema (left le +1, right LE trace), Tenderness (left LE); Negative: Normal pulses Skin Exam: Positive: Rash (left LE shows erythema and warmth to touch extending up left LE to just below left knee, pulses appreciated b/l dorsalis pedis by dopplar ), Breakdown (toes of b/l feet demonstrate cracks/dry skin/flaking,\\/ onychomycosis , right le digits autoamputation evident) Neuro Exam: Positive: Normal Speech Vital Signs Vital Signs Date Time Temp Pulse Resp B/P (MAP) Pulse Ox O2 Delivery O2 Flow Rate FiO2 09/18/18 15:05 09/18/18 14:42 97.9 69 18 99 Room Air Laboratory Data Labs 24H Laboratory Tests 2 09/18/18 15:01: Bedside Glucose (Misc Panel) 147H 09/18/18 15:46: Immature Granulocyte % (Auto) 1.0, White Blood Count 12.4H, Red Blood Count 4.00L, Hemoglobin 11.1L, Hematocrit 35.3L, Mean Corpuscular Volume 88.3, Mean Corpuscular Hemoglobin 27.8, Mean Corpuscular Hemoglobin Concent 31.4L, Red Cell Distribution Width 14.3, Platelet Count 220, Neutrophils (%) (Auto) 76.2H, Lymphocytes (%) (Auto) 12.3L, Monocytes (%) (Auto) 8.0H, Eosinophils (%) (Auto) 1.9, Basophils (%) (Auto) 0.6, Neutrophils # (Auto) 9.4H, Lymphocytes # (Auto) 1.5, Monocytes # (Auto) 1.0H, Eosinophils # (Auto) 0.2, Basophils # (Auto) 0.1, Nucleated Red Blood Cells % (auto) 0.0, Erythrocyte Sedimentation Rate 100H, Anion Gap 8, Glomerular Filtration Rate 44.1L, Lactic Acid Level 2.3*H, Blood Urea Nitrogen 23H, Creatinine 1.66H, Sodium Level 144, Potassium Level 3.6, Chloride Level 109H, Carbon Dioxide Level 27, Calcium Level 8.5L, C-Reactive Protein, Quantitative 28.40H CBC/BMP Laboratory Tests 09/18/18 15:46 Red Blood Count 4.00 L, Mean Corpuscular Volume 88.3, Mean Corpuscular Hemoglobin 27.8, Mean Corpuscular Hemoglobin Concent 31.4 L, Red Cell Distribution Width 14.3, Neutrophils (%) (Auto) 76.2 H, Lymphocytes (%) (Auto) 12.3 L, Monocytes (%) (Auto) 8.0 H, Eosinophils (%) (Auto) 1.9, Basophils (%) (Auto) 0.6, Neutrophils # (Auto) 9.4 H, Lymphocytes # (Auto) 1.5, Monocytes # (Auto) 1.0 H, Eosinophils # (Auto) 0.2, Basophils # (Auto) 0.1, Calcium Level 8.5 L Microbiology Microbiology 09/18/18 Blood Culture, Received Pending Assessment/Plan This is a 67 yo male who presented to the hospital with complaints of left LE swelling, pain and redness. 1. Cellulitis of left LE - He has history of MRSA + wound cultures, begin Ceftarolin 600 mg q12h -blood cx pending, since only one was ordered through ED, will repeat one now -pain control with Percocet -will gently hydrate IVF NS @ 75 cc/hr -lactic acid elevated on presentation, IVF and abx should help, will monitor, CRP elevated as well, will repeat in AM -WBC elevated likely secondary to cellulitis, pt is stable, continue to monitor for now 2.HTN -can c/w home medications for now amlodipine and lisinopril and hctz 3. DM2 -begin Levemir 50 units AM and 20 units PM -const carb diet -SSI w/hypoglycemic protocol 4. Peripheral neuropathy -c/w gabapentin 5. DLP -c/w home atorvastatin 6. EDOUARD -baseline cr around 1, 1.6 on presentation, will monitor and begin IVF, could be 2/2 reduced oral input the past few days DVT px- Lovenox Plan / VTE VTE Prophylaxis Ordered?: Yes GME ATTESTATION GME ATTESTATION My faculty preceptor for this patient encounter was physically present during the encounter and was fully available. All aspects of the patient interview, examination, medical decision making process, and medical care plan development were reviewed and approved by the faculty preceptor. The faculty preceptor is aware and concurs with the plan as stated in the body of this note and will attest to such by his/her cosignature. ATTENDING NOTE I, Vandana Calvin, have both independently examined this patient as well as reviewed the documentation. I have discussed in detail with the resident the findings and plan of treatment as documented by the resident. I agree with their findings and treatment plan. I will continue to follow the patient and offer further guidance to the patients care as necessary during this hospital stay. LIBROIO MENDEZ DO Sep 18, 2018 17:55 VANDANA CALVIN MD Sep 24, 2018 10:29
[2018-09-18] MEDS ORDERED: INSUDET SC (18:19)
[2018-09-18] MEDS ORDERED: ZOCO80TA PO (18:19)
[2018-09-18] MEDS ORDERED: NAPR-837 PO (18:19)
[2018-09-18] MEDS ORDERED: METF-877 PO (18:19)
[2018-09-18] MEDS ORDERED: AMLO10TA5 PO (18:19)
[2018-09-18] MEDS ORDERED: MED REC COMMENT (18:21)
[2018-09-18] MEDS: NS 1,000 ML IV SCH (18:31)
[2018-09-18] MEDS: CEFTAROLINE FOSAMIL 600 MG in D5W MINI-BAG PLUS 50 ML IV SCH (18:34)
[2018-09-18] MEDS: ENOXAPARIN 40 MG/0.4 ML SYRINGE (J1650) SC SCH (18:34)
[2018-09-18] MEDS: PERCOCET 5MG/325MG TAB PO PRN (19:29)
[2018-09-18 22:00] VITALS: BP 145/80
[2018-09-18] MEDS: LEVEMIR (INSULIN DETEMIR) 1 UNITS/0.01ML SC SCH (23:29)
[2018-09-19 06:00] VITALS: BP 139/82
[2018-09-19] MEDS: CEFTAROLINE FOSAMIL 600 MG in D5W MINI-BAG PLUS 50 ML IV SCH ×2 (06:17→18:22)
[2018-09-19 06:19] LABS: HEMATOCRIT 32.3 % (42.0-52.0); HEMOGLOBIN 10.4 g/dl (13.5-17.5); MEAN CORPUSCULAR HEMOGLOBIN 28.7 pg (27.0-33.0); MEAN CORPUSCULAR HGB CONC 32.2 g/dl (32.0-36.5); PLATELET COUNT, AUTOMATED 183 10^3/uL (150-450); RED BLOOD COUNT 3.63 10^6/uL (4.30-6.10); WHITE BLOOD COUNT 11.2 10^3/uL (4.0-10.0)
[2018-09-19 07:05] LABS: C REACTIVE PROTEIN QUANTITATIV 27.8 MG/DL (0.00-0.30); CALCIUM LEVEL 7.7 MG/DL (8.8-10.2); CREATININE FOR GFR 1.48 MG/DL (0.70-1.30); GLOMERULAR FILTRATION RATE 50.3 (>49)
[2018-09-19] MEDS ORDERED: POTASSIUM CHLORIDE 10 MEQ SR TABLET PO ONE ×2 (07:30→10:00)
[2018-09-19] MEDS: HumaLOG INSULIN (NovoLOG) PER UNIT SC SCH ×4 (07:30→21:00)
[2018-09-19] MEDS: LEVEMIR (INSULIN DETEMIR) 1 UNITS/0.01ML SC SCH ×2 (08:41→21:00)
[2018-09-19] MEDS ORDERED: PNEUMOCOCCAL VACCINE 0.5ML SYRINGE(90732) PNEUMOVAX 23 IM ONE (09:00)
[2018-09-19] MEDS: PERCOCET 5MG/325MG TAB PO PRN (09:31)
[2018-09-19] MEDS: NS 1,000 ML IV SCH (09:32)
--- NOTE | 2018-09-19 14:39 | IPNPDOC ---
Text Note Date of Service The patient was seen on 09/19/18. NOTE Mr. Hannah is seen on bedside rounds this morning, he is doing well, actually was sleeping upon arrival to room. He stated his left leg felt better in terms of pain but it did hurt a bit to put pressure on it when he walked to the bathroom. He otherwise felt well, just tired. Denied sob, cough, cp, n/v. ROS: 12 point ROS reviewed with patient and only positive for above findings. PE: Vitals: see below General: this is a pleasant 67 yo male, sitting in bed in NAD, speaking in complete sentences without difficulty HEENT: EOMI, moist mucus membranes, no JVD Cardiac: normal s1 and s2., no murmurs, rubs or gallops Resp: CTA b/l no wheezing or rhonchi or rales appreciated Abdomen: no hepatosplenomegaly appreciated nor masses, nontender, no distension, no rebound ridgity or guarding, no nabsx4 Extremities: cellulitis of left le seems improved today in regards to margins, still +2 left le edema warm to touch, +1 right le edema, toes of either feet are cracked, flaking, he has had autoamputation of toes of right foot, left foot second digit shows skin erosion, without pus or blood exudation 1. Cellulitis of left LE - For history of MRSA + wound cultures, c/w Ceftaroline 600 mg q12h day #2 -blood cx x2 pending -pain control with Percocet -c/w IVF NS @ 75 cc/hr -lactic acid elevated on presentation has now normalized , c/w IVF and abx., CRP improving -WBC elevated likely secondary to cellulitis, WBC improving today -there is some swelling of left LE +2, right LE +1, will DC IV fluids now; continue to hold diuretics - Will continue to monitor and reintroduce diuretics tomorrow as needed 2.HTN -c/w home medications amlodipine and lisinopril and hctz 3. DM2 -c/w Levemir 50 units AM and 20 units PM -const carb diet -SSI w/hypoglycemic protocol 4. Peripheral neuropathy -c/w gabapentin 5. DLP -c/w home atorvastatin 6. EDOUARD -baseline cr around 1, 1.6 on presentation and improved to 1.4 today, the pt states he wasn't eating and drinking well prior to presentation because he didn't feel well, could be secondary to decreased oral input, will monitor - Given LE edema; will DC fluids; will continue to hold diuretics at this time DVT px - Lovenox VS,Fishbone, I+O VS, Fishbone, I+O Laboratory Tests 09/18/18 15:46 Red Blood Count 4.00 L, Mean Corpuscular Volume 88.3, Mean Corpuscular Hemoglobin 27.8, Mean Corpuscular Hemoglobin Concent 31.4 L, Red Cell Distribution Width 14.3, Neutrophils (%) (Auto) 76.2 H, Lymphocytes (%) (Auto) 12.3 L, Monocytes (%) (Auto) 8.0 H, Eosinophils (%) (Auto) 1.9, Basophils (%) (Auto) 0.6, Neutrophils # (Auto) 9.4 H, Lymphocytes # (Auto) 1.5, Monocytes # (Auto) 1.0 H, Eosinophils # (Auto) 0.2, Basophils # (Auto) 0.1, Calcium Level 8.5 L 09/19/18 05:45 Red Blood Count 3.63 L, Mean Corpuscular Volume 89.0, Mean Corpuscular Hemoglobin 28.7, Mean Corpuscular Hemoglobin Concent 32.2, Red Cell Distribution Width 14.2, Calcium Level 7.7 L Vital Signs Date Time Temp Pulse Resp B/P (MAP) Pulse Ox O2 Delivery O2 Flow Rate FiO2 09/19/18 10:01 18 09/19/18 06:00 97.4 72 139/82 (101) 99 09/18/18 20:29 Room Air I&O- Last 24 Hours up to 6 AM 09/19/18 06:00 Intake Total 1250 ml Output Total 400 ml Balance 850 ml GME ATTESTATION GME ATTESTATION My faculty preceptor for this patient encounter was physically present during the encounter and was fully available. All aspects of the patient interview, examination, medical decision making process, and medical care plan development were reviewed and approved by the faculty preceptor. The faculty preceptor is aware and concurs with the plan as stated in the body of this note and will attest to such by his/her cosignature. ATTENDING NOTE I, Vandana Benz, have both independently examined this patient as well as reviewed the documentation. I have discussed in detail with the resident the findings and plan of treatment as documented by the resident. I agree with their findings and treatment plan. I will continue to follow the patient and offer further guidance to the patients care as necessary during this hospital stay. LIBORIO MENDEZ DO Sep 19, 2018 14:39 VANDANA BENZ MD Sep 19, 2018 15:06
[2018-09-19] MEDS: OMEPRAZOLE 20 MG CAP PO SCH (18:22)
[2018-09-19] MEDS: ENOXAPARIN 40 MG/0.4 ML SYRINGE (J1650) SC SCH (18:22)
[2018-09-19 22:00] VITALS: BP 149/59
[2018-09-19] MEDS: GABAPENTIN 100 MG CAP PO SCH (22:13)
[2018-09-20] MEDS: PERCOCET 5MG/325MG TAB PO PRN ×2 (03:50→18:10)
[2018-09-20] MEDS: CEFTAROLINE FOSAMIL 600 MG in D5W MINI-BAG PLUS 50 ML IV SCH (05:45)
[2018-09-20 06:00] VITALS: BP 151/57
[2018-09-20 08:20] LABS: BASO # 0.1 10^3/uL (0.0-0.2); BASO % 0.9 % (0.0-1.0); EOS # 0.2 10^3/uL (0.0-0.50); EOS % 1.8 % (0.0-3.0); HEMATOCRIT 35.1 % (42.0-52.0); HEMOGLOBIN 11.2 g/dl (13.5-17.5); LYMPH # 1.3 10^3/uL (1.5-4.5); LYMPH % 12.6 % (24.0-44.0); MEAN CORPUSCULAR HEMOGLOBIN 28.5 pg (27.0-33.0); MEAN CORPUSCULAR HGB CONC 31.9 g/dl (32.0-36.5); MEAN CORPUSCULAR VOLUME 89.3 fl (80.0-96.0); MONO # 0.8 10^3/uL (0.0-0.8); MONO % 8.4 % (0.0-5.0); NEUTROPHILS # 7.5 10^3/uL (1.8-7.7); NEUTROPHILS % 75.2 % (36.0-66.0); PLATELET COUNT, AUTOMATED 231 10^3/uL (150-450); RED BLOOD COUNT 3.93 10^6/uL (4.30-6.10); WHITE BLOOD COUNT 9.9 10^3/uL (4.0-10.0)
[2018-09-20 08:50] LABS: PERCENT SATURATION 10.3 % (19.7-50.0)
[2018-09-20] MEDS: CLOPIDOGREL 75 MG TAB PO SCH (08:52)
[2018-09-20] MEDS: SIMVASTATIN 40 MG TAB PO SCH (08:52)
[2018-09-20] MEDS: LEVEMIR (INSULIN DETEMIR) 1 UNITS/0.01ML SC SCH ×2 (08:53→21:16)
[2018-09-20] MEDS: GABAPENTIN 100 MG CAP PO SCH ×2 (08:53→21:16)
[2018-09-20] MEDS: HumaLOG INSULIN (NovoLOG) PER UNIT SC SCH ×4 (08:53→21:00)
[2018-09-20] MEDS: amLODIPine 10 MG TAB PO SCH (08:54)
[2018-09-20] MEDS: LISINOPRIL 40 MG TAB PO SCH (08:54)
[2018-09-20 08:56] LABS: CALCIUM LEVEL 8.3 MG/DL (8.8-10.2); CREATININE FOR GFR 1.38 MG/DL (0.70-1.30); GLOMERULAR FILTRATION RATE 54.5 (>49); MAGNESIUM LEVEL 2.1 MG/DL (1.8-2.4); POTASSIUM SERUM 4.5 MEQ/L (3.5-5.1)
[2018-09-20 10:00] VITALS: BP 149/64
[2018-09-20 10:16] LABS: FOLATE 8.6 NG/ML (>5.4)
--- NOTE | 2018-09-20 11:47 | IPNPDOC ---
Text Note Date of Service The patient was seen on 09/20/18. NOTE Mr. Hannah is seen on bedside rounds this morning, he is doing well, still s ome discomfort in left foot upon walking, but this is improving. Denied sob, cough, cp, n/v. ROS: 12 point ROS reviewed with patient and only positive for above findings. PE: Vitals: see below General: this is a pleasant 67 yo male, sitting in bed in NAD, speaking in complete sentences without difficulty HEENT: EOMI, moist mucus membranes, no JVD Cardiac: normal s1 and s2., no murmurs, rubs or gallops Resp: CTA b/l no wheezing or rhonchi or rales appreciated Abdomen: no hepatosplenomegaly appreciated nor masses, nontender, no distension, no rebound ridgity or guarding, no nabsx4 Extremities: cellulitis of left le seems improved again today in regards to margins and lessening of erythema, about +1 left le edema warm to touch, +1 to trace right le edema, toes of either feet are cracked, flaking, he has had autoamputation of toes of right foot, left foot second digit shows skin erosion, without pus or blood exudation 1. Cellulitis of left LE - For history of MRSA + wound cultures, c/w Ceftaroline 600 mg q12h day #3, Will switch to Doxycycline / Augmentin (re: prior history of MRSA) -blood cx x2 neg so far -pain control with Percocet -s/p IVF NS @ 75 cc/hr-he is tolerating oral intake well -lactic acid elevated on presentation has now normalized , s/p IVF and abx., CRP improving as well -WBC elevated likely secondary to cellulitis, WBC normalized -there is some swelling of left LE, right LE as well but improved today, have stopped IV fluids now; continue to hold diuretics - Will continue to monitor and reintroduce diuretics if needed - Will trend CRP 2.HTN -c/w home medications amlodipine and lisinopril and hctz 3. DM2 -c/w Levemir 50 units AM and 20 units PM -const carb diet -SSI w/hypoglycemic protocol 4. Peripheral neuropathy -c/w gabapentin 5. DLP -c/w home atorvastatin 6. EDOUARD -baseline cr around 1, 1.6 on presentation and improved slowly to 1.38 today, t he pt states he wasn't eating and drinking well prior to presentation because he didn't feel well, could be secondary to decreased oral input, will monitor -s/p IVF, PO intake strongly encouraged, continue to monitor -will continue to hold diuretics at this time DVT px - Lovenox VS,Fishbone, I+O VS, Fishbone, I+O Laboratory Tests 09/20/18 08:01 Red Blood Count 3.93 L, Mean Corpuscular Volume 89.3, Mean Corpuscular Hemoglobin 28.5, Mean Corpuscular Hemoglobin Concent 31.9 L, Red Cell Distribution Width 14.2, Neutrophils (%) (Auto) 75.2 H, Lymphocytes (%) (Auto) 12.6 L, Monocytes (%) (Auto) 8.4 H, Eosinophils (%) (Auto) 1.8, Basophils (%) (Auto) 0.9, Neutrophils # (Auto) 7.5, Lymphocytes # (Auto) 1.3 L, Monocytes # (Auto) 0.8, Eosinophils # (Auto) 0.2, Basophils # (Auto) 0.1, Calcium Level 8.3 L Vital Signs Date Time Temp Pulse Resp B/P (MAP) Pulse Ox O2 Delivery O2 Flow Rate FiO2 09/20/18 08:54 73 153/60 09/20/18 06:00 98.2 20 96 09/18/18 20:29 Room Air I&O- Last 24 Hours up to 6 AM 09/20/18 06:00 Intake Total 840 ml Output Total 0 ml Balance 840 ml GME ATTESTATION GME ATTESTATION My faculty preceptor for this patient encounter was physically present during the encounter and was fully available. All aspects of the patient interview, examination, medical decision making process, and medical care plan development were reviewed and approved by the faculty preceptor. The faculty preceptor is aware and concurs with the plan as stated in the body of this note and will attest to such by his/her cosignature. ATTENDING NOTE I, Vandana Benz, have both independently examined this patient as well as reviewed the documentation. I have discussed in detail with the resident the findings and plan of treatment as documented by the resident. I agree with their findings and treatment plan. I will continue to follow the patient and offer further guidance to the patients care as necessary during this hospital stay. LIBORIO MENDEZ DO Sep 20, 2018 11:47 VANDANA BENZ MD Sep 20, 2018 14:05
[2018-09-20 14:00] VITALS: BP 138/63
[2018-09-20] MEDS: ENOXAPARIN 40 MG/0.4 ML SYRINGE (J1650) SC SCH (17:46)
[2018-09-20] MEDS: OMEPRAZOLE 20 MG CAP PO SCH (17:46)
[2018-09-20] MEDS: AUGMENTIN 875 MG TAB PO SCH (21:16)
[2018-09-20] MEDS: DOXYCYCLINE HYCLATE 100 MG TAB PO SCH (21:16)
[2018-09-20 22:00] VITALS: BP 136/62
[2018-09-21 06:00] VITALS: BP 158/71
[2018-09-21] MEDS: PERCOCET 5MG/325MG TAB PO PRN (06:08)
[2018-09-21 07:30] LABS: BASO # 0.1 10^3/uL (0.0-0.2); BASO % 0.9 % (0.0-1.0); EOS # 0.3 10^3/uL (0.0-0.50); EOS % 2.8 % (0.0-3.0); HEMATOCRIT 32.4 % (42.0-52.0); HEMOGLOBIN 10.1 g/dl (13.5-17.5); LYMPH # 1.7 10^3/uL (1.5-4.5); LYMPH % 15.5 % (24.0-44.0); MEAN CORPUSCULAR HEMOGLOBIN 27.3 pg (27.0-33.0); MEAN CORPUSCULAR HGB CONC 31.2 g/dl (32.0-36.5); MEAN CORPUSCULAR VOLUME 87.6 fl (80.0-96.0); MONO % 9.6 % (0.0-5.0); NEUTROPHILS # 7.4 10^3/uL (1.8-7.7); NEUTROPHILS % 68.1 % (36.0-66.0); PLATELET COUNT, AUTOMATED 270 10^3/uL (150-450); WHITE BLOOD COUNT 10.8 10^3/uL (4.0-10.0)
[2018-09-21] MEDS: HumaLOG INSULIN (NovoLOG) PER UNIT SC SCH ×3 (07:30→17:30)
[2018-09-21 08:08] LABS: C REACTIVE PROTEIN QUANTITATIV 21.3 MG/DL (0.00-0.30); CALCIUM LEVEL 8.2 MG/DL (8.8-10.2); CREATININE FOR GFR 1.53 MG/DL (0.70-1.30); GLOMERULAR FILTRATION RATE 48.4 (>49); MAGNESIUM LEVEL 2.2 MG/DL (1.8-2.4); POTASSIUM SERUM 4.3 MEQ/L (3.5-5.1)
[2018-09-21] MEDS ORDERED: AMOX875T2 PO (08:13)
[2018-09-21] MEDS ORDERED: DOXY100T PO (08:13)
[2018-09-21] MEDS ORDERED: LISI40TA PO (08:19)
[2018-09-21] MEDS ORDERED: INSUDET SC ×4 (08:19→08:29)
[2018-09-21] MEDS ORDERED: ZOCO80TA PO (08:19)
[2018-09-21] MEDS ORDERED: OMEP20CA3 PO (08:19)
[2018-09-21] MEDS ORDERED: TRAD5TAB PO (08:19)
[2018-09-21] MEDS ORDERED: GABA-1171 PO (08:19)
[2018-09-21] MEDS ORDERED: FURO40TA2 PO ×2 (08:19→11:43)
[2018-09-21] MEDS ORDERED: AMLO10TA5 PO (08:19)
[2018-09-21] MEDS ORDERED: METF10004 PO (08:19)
[2018-09-21] MEDS ORDERED: NAPR-885 PO (08:19)
[2018-09-21] MEDS ORDERED: CLOP75TA2 PO (08:19)
[2018-09-21] MEDS: LEVEMIR (INSULIN DETEMIR) 1 UNITS/0.01ML SC SCH ×2 (09:32→11:09)
[2018-09-21 09:33] VITALS: BP 158/71
[2018-09-21] MEDS: SIMVASTATIN 40 MG TAB PO SCH (09:33)
[2018-09-21] MEDS: GABAPENTIN 100 MG CAP PO SCH (09:33)
[2018-09-21] MEDS: LISINOPRIL 40 MG TAB PO SCH (09:33)
[2018-09-21] MEDS: AUGMENTIN 875 MG TAB PO SCH ×2 (09:33→17:54)
[2018-09-21] MEDS: DOXYCYCLINE HYCLATE 100 MG TAB PO SCH ×2 (09:33→17:54)
[2018-09-21] MEDS: amLODIPine 10 MG TAB PO SCH (09:33)
[2018-09-21] MEDS: CLOPIDOGREL 75 MG TAB PO SCH (09:33)
[2018-09-21 14:00] VITALS: BP 148/62
--- NOTE | 2018-09-21 17:03 | DS.PDOC ---
Discharge Summary General Date of Admission Sep 18, 2018 at 17:30 Date of Discharge 09.21.18 Discharge Summary PROCEDURES PERFORMED DURING STAY: None ADMITTING DIAGNOSES / DISCHARGE DIAGNOSES: 1. Cellulitis of left LE - with coverage for MRSA and Strep 2.HTN 3. DM2 with hypoglycemia 4. Peripheral neuropathy 5. DLP 6. EDOUARD COMPLICATIONS/CHIEF COMPLAINT: Cellulitis. HOSPITAL COURSE: During the course of his stay he was treated with IV ceftaroline, blood cultures were negative x2, his CRP was trending down, he did have slight bump in kidney function day of d/c and was recommended to hold home lasix for 2 days after dc and see PCP within 5-7 days of d.c. He was d/c with Augmentin and doxycycline, he worked with and was cleared by PT. DISCHARGE MEDICATIONS: Please see below. ALLERGIES: Please see below. PHYSICAL EXAMINATION ON DISCHARGE: VITAL SIGNS: Please see below. GENERAL: Patient is sitting in bed, pleasant and comfortable. Daughter and TEJAL at bedside. No complaints, some improving pain in left LE. Otherwise patient denies chest pain, shortness of breath, nausea, vomiting, fever, chills. He is awake, alert, oriented speaking in complete sentences in no acute distress. HEENT: Moist mucous membranes, EOMI CARDIOVASCULAR: S1 S2 regular no additional heart sounds appreciated RESPIRATORY: Clear to auscultation bilaterally, no wheezing, rales or rhonchi appreciated ABDOMINAL: Bowel sounds presentx4 abdomen soft and nontender to light or deep palpation, no rebound, rigidity, or guarding., no hepatosplenomegaly or masses appreciated EXTREMITIES: No clubbing cyanosis, improving edema +1 on left LE, erythema has improved, trace right LE edema NEUROLOGICAL: Spontaneously moves all 4 extremities, no focal deficits. PSYCHOLOGICAL: Appropriate affect VITAL SIGNS: Please see below. LABORATORY DATA: Please see below. [id number] Left LE u/s Impression: No evidence of deep venous thrombosis of the left lower extremity femoral popliteal venous system. PROGNOSIS: Stable ACTIVITY: As tolerated DIET: As tolerated DISCHARGE PLAN: Follow up with pcp w/in 5-7 days of dc, hold home Lasix for 2 days after d/c, complete antibiotic course. DISPOSITION: Stable to be dc home with walker DISCHARGE INSTRUCTIONS: 1. Follow up with pcp w/in 5-7 days of dc, hold home Lasix for 2 days after d/c, complete antibiotic course. - Remain compliant with treatment plan and medications - Return to the ER if you experience any problems. DISCHARGE CONDITION: Improved and Stable TIME SPENT ON DISCHARGE: Greater than 35 minutes. Vital Signs/I&Os Vital Signs Date Time Temp Pulse Resp B/P (MAP) Pulse Ox O2 Delivery O2 Flow Rate FiO2 09/21/18 14:00 97.4 61 18 148/62 (90) 95 09/18/18 20:29 Room Air I&O- Last 24 Hours up to 6 AM 09/21/18 06:00 Intake Total 1140 ml Output Total 1100 ml Balance 40 ml Laboratory Data Labs 24H Laboratory Tests 2 09/20/18 16:54: Bedside Glucose (Misc Panel) 73L 09/20/18 20:09: Bedside Glucose (Misc Panel) 162H 09/21/18 07:07: Immature Granulocyte % (Auto) 3.1H, White Blood Count 10.8H, Red Blood Count 3.70L, Hemoglobin 10.1L, Hematocrit 32.4L, Mean Corpuscular Volume 87.6, Mean Corpuscular Hemoglobin 27.3, Mean Corpuscular Hemoglobin Concent 31.2L, Red Cell Distribution Width 14.4, Platelet Count 270, Neutrophils (%) (Auto) 68.1H, Lymphocytes (%) (Auto) 15.5L, Monocytes (%) (Auto) 9.6H, Eosinophils (%) (Auto) 2.8, Basophils (%) (Auto) 0.9, Neutrophils # (Auto) 7.4, Lymphocytes # (Auto) 1.7, Monocytes # (Auto) 1.0H, Eosinophils # (Auto) 0.3, Basophils # (Auto) 0.1, Nucleated Red Blood Cells % (auto) 0.0, Anion Gap 5L, Glomerular Filtration Rate 48.4L, Blood Urea Nitrogen 24H, Creatinine 1.53H, Sodium Level 141, Potassium Level 4.3, Chloride Level 110H, Carbon Dioxide Level 26, Calcium Level 8.2L, Magnesium Level 2.2, C-Reactive Protein, Quantitative 21.30H 09/21/18 07:12: Bedside Glucose (Misc Panel) 64L 09/21/18 09:37: Bedside Glucose (Misc Panel) 63L 09/21/18 10:59: Bedside Glucose (Misc Panel) 95 09/21/18 16:29: Bedside Glucose (Misc Panel) 164H CBC/BMP Laboratory Tests 09/21/18 07:07 Red Blood Count 3.70 L, Mean Corpuscular Volume 87.6, Mean Corpuscular Hemoglobin 27.3, Mean Corpuscular Hemoglobin Concent 31.2 L, Red Cell Distr ibution Width 14.4, Neutrophils (%) (Auto) 68.1 H, Lymphocytes (%) (Auto) 15.5 L, Monocytes (%) (Auto) 9.6 H, Eosinophils (%) (Auto) 2.8, Basophils (%) (Auto) 0.9, Neutrophils # (Auto) 7.4, Lymphocytes # (Auto) 1.7, Monocytes # (Auto) 1.0 H, Eosinophils # (Auto) 0.3, Basophils # (Auto) 0.1, Calcium Level 8.2 L FSBS Laboratory Tests Test 09/20/18 16:54 09/20/18 20:09 09/21/18 07:12 09/21/18 09:37 Range/Units Bedside Glucose (Misc Panel) 73 162 64 63 80-115 MG/DL Test 09/21/18 10:59 09/21/18 16:29 Range/Units Bedside Glucose (Misc Panel) 95 164 80-115 MG/DL Microbiology Microbiology 09/18/18 Blood Culture - Preliminary, Resulted No Growth after 48 hours. All Specime... 09/18/18 Blood Culture - Preliminary, Resulted No Growth after 72 hours. All specime... Discharge Medications Scheduled Amlodipine Besylate (Amlodipine Besylate) 10 Mg Tablet, 10 MG PO DAILY, (Reported) Amoxicillin/Potassium Clav (Amox-Clav 875-125 mg Tablet) 1 Each Tablet, 875 MG PO BID Clopidogrel Bisulfate (Clopidogrel) 75 Mg Tablet, 75 MG PO DAILY, (Reported) Doxycycline Hyclate (Doxycycline Hyclate) 100 Mg Tablet, 100 MG PO BID Furosemide (Furosemide) 40 Mg Tablet, 40 MG PO DAILY Hold for 2 days Gabapentin (Gabapentin) 100 Mg Capsule, 100 MG PO BID, (Reported) Insulin Detemir (Levemir) 100 Unit/1 Ml Vial, 50 UNITS SC QHS Insulin Detemir (Levemir) 100 Unit/1 Ml Vial, 20 UNITS SC QAM Linagliptin (Tradjenta) 5 Mg Tablet, 5 MG PO DAILY, (Reported) Lisinopril (Lisinopril) 40 Mg Tablet, 40 MG PO DAILY, (Reported) Metformin HCl (Metformin HCl) 1,000 Mg Tablet, 1,000 MG PO BID, (Reported) Omeprazole (Omeprazole) 20 Mg Capsule.dr, 20 MG PO ACS, (Reported) Simvastatin (Zocor) 80 Mg Tablet, 80 MG PO DAILY, (Reported) Allergies Coded Allergies: No Known Allergies (Verified , 12/16/08) GME ATTESTATION GME ATTESTATION My faculty preceptor for this patient encounter was physically present during the encounter and was fully available. All aspects of the patient interview, examination, medical decision making process, and medical care plan development were reviewed and approved by the faculty preceptor. The faculty preceptor is aware and concurs with the plan as stated in the body of this note and will attest to such by his/her cosignature. ATTENDING NOTE I, Vandana Benz, have both independently examined this patient as well as reviewed the documentation. I have discussed in detail with the resident the findings and plan of treatment as documented by the resident. I agree with their findings and treatment plan. I will continue to follow the patient and offer further guidance to the patients care as necessary during this hospital stay. Time spent on discharge 37 minutes LIBORIO MENDEZ DO Sep 21, 2018 17:03 VANDANA BENZ MD Sep 21, 2018 18:34
[2018-09-21] MEDS: OMEPRAZOLE 20 MG CAP PO SCH (17:54)
[2018-09-21] MEDS: ENOXAPARIN 40 MG/0.4 ML SYRINGE (J1650) SC SCH (17:55)
== END 2018-09-21 18:25 | disposition home or self-care (01) | DRG 603 ==
LOC: M ED 14:42 → M ED INP 17:30 → M MS5PR 20:50
PROVIDERS: ADMIT Internal Medicine; ATTEND Internal Medicine
DX: L03.116 Cellulitis of left lower limb (principal); N17.9 Acute kidney failure, unspecified; I10 Essential (primary) hypertension; E11.51 Type 2 diabetes mellitus with diabetic peripheral angiopathy without gangrene; E11.649 Type 2 diabetes mellitus with hypoglycemia without coma; Z79.899 Other long term (current) drug therapy; Z79.4 Long term (current) use of insulin; Z85.51 Personal history of malignant neoplasm of bladder; N40.0 Benign prostatic hyperplasia without lower urinary tract symptoms; F41.9 Anxiety disorder, unspecified; Z95.2 Presence of prosthetic heart valve; Z87.891 Personal history of nicotine dependence

== ENCOUNTER 2018-09-24 11:23 | Inpatient (IN) | payer MEDICARE, OTHER ==
[~2018-09-24] VITALS: Ht 175.3 cm; Wt 89.1 kg
[~2018-09-24 11:23] MED LIST changes: +AMLO10TA5 PO; +AMOX875T2 PO; +CLOP75TA2 PO; +DOXY100T PO; +FURO40TA2 PO; +GABA-1171 PO; +INSUDET SC; +MED REC COMMENT; +METF-877 PO; +METF10004 PO; +NAPR-837 PO; +NAPR-885 PO; -OMEP20CA3 PO; +OMEP20CA4 PO; +TRAD5TAB PO; +ZOCO80TA PO
[2018-09-24 12:28] LABS: BASO # 0.1 10^3/uL (0.0-0.2); EOS # 0.3 10^3/uL (0.0-0.50); EOS % 2.8 % (0.0-3.0); HEMATOCRIT 34.4 % (42.0-52.0); LYMPH # 1.5 10^3/uL (1.5-4.5); LYMPH % 15.7 % (24.0-44.0); MEAN CORPUSCULAR HEMOGLOBIN 28.3 pg (27.0-33.0); MEAN CORPUSCULAR VOLUME 88.4 fl (80.0-96.0); MONO # 0.7 10^3/uL (0.0-0.8); NEUTROPHILS # 6.7 10^3/uL (1.8-7.7); NEUTROPHILS % 70.3 % (36.0-66.0); PLATELET COUNT, AUTOMATED 339 10^3/uL (150-450); RED BLOOD COUNT 3.89 10^6/uL (4.30-6.10); WHITE BLOOD COUNT 9.6 10^3/uL (4.0-10.0)
[2018-09-24 12:37] LABS: ALBUMIN 2.1 GM/DL (3.2-5.2); BILIRUBIN,DIRECT 0.1 MG/DL (0.0-0.2); BILIRUBIN,TOTAL 0.3 MG/DL (0.2-1.0); CALCIUM LEVEL 8.3 MG/DL (8.8-10.2); CREATININE FOR GFR 1.68 MG/DL (0.70-1.30); GLOMERULAR FILTRATION RATE 43.5 (>49); POTASSIUM SERUM 4.5 MEQ/L (3.5-5.1); TOTAL PROTEIN 6.8 GM/DL (6.4-8.2)
[2018-09-24 13:00] LABS: C REACTIVE PROTEIN QUANTITATIV 10.4 MG/DL (0.00-0.30)
[2018-09-24 13:09] LABS: ERYTHROCYTE SEDIMENTATION RATE 117 mm/hr (0-20)
--- NOTE | 2018-09-24 13:28 | REP ---
Chest x-ray: Two views. History: Leg swelling. Question CHF. . Comparison study: October 09, 2016 . Findings: The lungs are well inflated and free of infiltrate. The pleural angles are sharp. The heart size is normal. Pulmonary vasculature is not increased. No significant bony abnormality is seen. Impression: Negative chest x-ray. Electronically Signed by Huang Mora MD 09/24/2018 01:20 P
[2018-09-24] MEDS ORDERED: amLODIPine 10 MG TAB PO ONE ×2 (14:45→15:00)
[2018-09-24] MEDS ORDERED: GLUCOSE 4 GM CHEW TABLET PO PRN (14:45)
[2018-09-24] MEDS ORDERED: DEXTROSE 50% 50 ML SYRINGE IV PRN (14:45)
[2018-09-24] MEDS ORDERED: GLUCAGON FOR INJ 1 MG VIAL (J1610) SC PRN (14:45)
[2018-09-24] MEDS ORDERED: NAPR500T6 PO (14:56)
[2018-09-24] MEDS ORDERED: FURO40TA2 PO (14:56)
[2018-09-24] MEDS ORDERED: INSUDET SC ×2 (15:00)
[2018-09-24] MEDS: ceFAZolin SOD 1 GM in D5W MINI-BAG PLUS 50 ML IV SCH ×2 (15:00→21:20)
[2018-09-24] MEDS ORDERED: NAPROXEN 250 MG TAB PO PRN (15:15)
--- NOTE | 2018-09-24 15:55 | HPEPDOC ---
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 He had worsening erythema involving the dorsum of the left foot radiating to his pearce with tenderness, warmth, and swelling, prompting him to be sent to the ER for IV antibiotics. Pt denies any fevers, chills. He admits to increasing pain with ambulation, swelling, and minimal serous discharge from the ulcer on the left 2nd toe. He has been previously [facility] by [facility] and was discharged by Dr. Syed as his right 2nd-5th toes auto-amputated. He denies fever, chills, night sweats, n/v, abdominal pain, diarrhea, pain with urination, CP or SOB, no recent traumatic events to the left lower leg. 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 Past Surgical History: ventral hernia repair x2 TURP 2009 Penile prosthesis repair in 2010 Right vein repair 2016 stent in left leg 2017 [place] per pt penile prosthesis replacement 2017 Family History father is , mom has diabetes, siblings have diabetes and "lung disease" and lymphoma Social History * Smoker: former Smoker (quit smoking 10 years ago, used to smoke 20-30 cigs a day for +20 yrs) Alcohol: Denies Drugs: denies single, he has four children, retired, lives by himself A-FIB/CHADSVASC A-FIB History Current/History of A-Fib/PAF?: No Review of Systems Constitutional: Denies: Chills, Fever, Weakness, Fatigue Skin: Reports: Rash (left LE erythema) Pulmonary: Denies: Dyspnea, Cough Cardiovascular: Reports: Edema; Denies: Chest Pain, Palpitations, Lt Headedness Gastrointestinal: Denies: Nausea, Vomiting, Abdominal Pain, Diarrhea, Constipation, Melena Genitourinary: Denies: Dysuria Neurological: Denies: Weakness Psych: Reports: Mood Normal Musculoskeletal: peripheral arterial disease, stent in the left leg and on chronic plavix, chronic diabetic foot ulcers 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 Physical Examination Vitals: pls see below General Exam: Positive: Alert, Cooperative, Mild Distress (from left LE pain) Eye Exam: Positive: EOMI Chest Exam: Positive: Normal air movement, Diminished; Negative: Rales, Rhonchi, Wheezing Heart Exam: Positive: Rate Normal, Normal S1, Normal S2; Negative: Gallops Abdomen Exam: Positive: Normal bowel sounds, Soft, Hernia (left inguinal, reducible ); Negative: Tenderness, Hepatospenomegaly Extremity Exam: erythema, swelling, and tenderness on the dorsum of the left foot, anterior left leg to just below the knee. 2cm ulcer on left 2nd toe, dorsalis pedis, posterior tibialis pulses by dopplar ), Breakdown (toes of b/l feet demonstrate cracks/dry skin/flaking,\\/ onychomycosis , right 2nd-5th toes s/p autoamputation black discoloration noted. 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 He had worsening erythema involving the dorsum of the left foot radiating to his pearce with tenderness, warmth, and swelling, prompting him to be sent to the ER for IV antibiotics. Pt denies any fevers, chills. He admits to increasing pain with ambulation, swelling, and minimal serous discharge from the ulcer on the left 2nd toe. He has been previously treated by the [facility] and was dis charged by Dr. Syed as his right 2nd-5th toes auto-amputated. He denies fever, chills, night sweats, n/v, abdominal pain, diarrhea, pain with urination, CP or SOB, no recent traumatic events to the left lower leg. Recurrent Cellulitis of left LE due to medical noncompliane -pt admits to not picking up his medications as "I couldn't pay for them." -wound cultures and sensitivities sent. - He has history of MRSA + wound cultures, on doxycycline started on 09/24/18 - on iv cefazolin started on 09/24/18 to cover mSSA and strep - Gallery Intern consulted for nonhealing diabetic ulcer for debridement. -pain control with prn percocet -PFS consulted to help pay for meds and home care at discharge. Peripheral Arterial disease s/p stent in Left LE -on chronic plavix -vascular surgery consulted to evaluate circulation HTN -resumed home meds -uncontrolled due to pain in the left leg DM2 -resumed levemir insulin -const carb diet -SSI w/hypoglycemic protocol Peripheral neuropathy -c/w gabapentin DLP -c/w home atorvastatin CKD 3 -baseline cr around 1, 1.6 on presentation -hold hctz for now DVT px- Lovenox renally dosed. Plan / VTE VTE Prophylaxis Ordered?: Yes Vital Signs Vital Signs Date Time Temp Pulse Resp B/P (MAP) Pulse Ox O2 Delivery O2 Flow Rate FiO2 09/24/18 11:38 96.0 66 18 191/75 (113) 98 Room Air Laboratory Data Labs 24H Laboratory Tests 2 09/24/18 11:52: Immature Granulocyte % (Auto) 3.2H, White Blood Count 9.6, Red Blood Count 3.89L, Hemoglobin 11.0L, Hematocrit 34.4L, Mean Corpuscular Volume 88.4, Mean Corpuscular Hemoglobin 28.3, Mean Corpuscular Hemoglobin Concent 32.0, Red Cell Distribution Width 14.5, Platelet Count 339, Neutrophils (%) (Auto) 70.3H, Lymphocytes (%) (Auto) 15.7L, Monocytes (%) (Auto) 7.0H, Eosinophils (%) (Auto) 2.8, Basophils (%) (Auto) 1.0, Neutrophils # (Auto) 6.7, Lymphocytes # (Auto) 1.5, Monocytes # (Auto) 0.7, Eosinophils # (Auto) 0.3, Basophils # (Auto) 0.1, Nucleated Red Blood Cells % (auto) 0.0, Erythrocyte Sedimentation Rate 117H, Anion Gap 8, Glomerular Filtration Rate 43.5L, Lactic Acid Level 1.1, Calcium Level 8.3L, Aspartate Amino Transf (AST/SGOT) 18, Alanine Aminotransferase (ALT/SGPT) 12, Alkaline Phosphatase 112, Total Bilirubin 0.3, Direct Bilirubin 0.1, C-Reactive Protein, Quantitative 10.40H, GG-Usr-[id number]-Type Natriuretic Peptide 662H, Total Protein 6.8, Albumin 2.1L, Albumin/Globulin Ratio 0.45L CBC/BMP Laboratory Tests 09/24/18 11:52 Red Blood Count 3.89 L, Mean Corpuscular Volume 88.4, Mean Corpuscular Hemoglobin 28.3, Mean Corpuscular Hemoglobin Concent 32.0, Red Cell Distribution Width 14.5, Neutrophils (%) (Auto) 70.3 H, Lymphocytes (%) (Auto) 15.7 L, Monocytes (%) (Auto) 7.0 H, Eosinophils (%) (Auto) 2.8, Basophils (%) (Auto) 1.0, Neutrophils # (Auto) 6.7, Lymphocytes # (Auto) 1.5, Monocytes # (Auto) 0.7, Eosinophils # (Auto) 0.3, Basophils # (Auto) 0.1 Microbiology Microbiology 09/24/18 Blood Culture, Received Pending 09/24/18 Blood Culture, Received Pending Home Medications Scheduled Amlodipine Besylate (Amlodipine Besylate) 10 Mg Tablet, 10 MG PO DAILY Clopidogrel Bisulfate (Clopidogrel) 75 Mg Tablet, 75 MG PO DAILY Furosemide (Furosemide) 40 Mg Tablet, 40 MG PO DAILY Gabapentin (Gabapentin) 100 Mg Capsule, 100 MG PO DAILY RX IS FOR BID, BUT PATIENT STATES HE ONLY TAKES DAILY Insulin Detemir (Levemir) 100 Unit/1 Ml Vial, 40 UNITS SC QAM Insulin Detemir (Levemir) 100 Unit/1 Ml Vial, 70 UNITS SC QHS Linagliptin (Tradjenta) 5 Mg Tablet, 5 MG PO DAILY Lisinopril (Lisinopril) 40 Mg Tablet, 40 MG PO DAILY Metformin HCl (Metformin HCl) 1,000 Mg Tablet, 1,000 MG PO DAILY RX IS FOR BID, PATIENT STATES HE ONLY TAKES DAILY Omeprazole (Omeprazole) 20 Mg Capsule.dr, 20 MG PO DAILY Simvastatin (Zocor) 80 Mg Tablet, 80 MG PO DAILY Scheduled PRN Naproxen (Naproxen) 500 Mg Tablet.dr, 500 MG PO BID PRN for PAIN Allergies Coded Allergies: No Known Allergies (Verified , 12/16/08) A-FIB/CHADSVASC A-FIB History Current/History of A-Fib/PAF?: No Current PO Anticoag Therapy: No YANCI NEWTON MD Sep 24, 2018 14:31
--- NOTE | 2018-09-24 16:48 | REP ---
LEFT FOOT, FOUR VIEWS: HISTORY: Left 2nd digit ulcer. COMPARISON: 06/18/2017 There is no acute fracture or dislocation. There is narrowing of the interphalangeal joint spaces. There is erosion of the peter of the 2nd through 4th distal phalanges. There has been further erosion of the tuft of the distal phalange of the 2nd digit. The erosion of the tuft of the distal phalange of the 3rd digit is unchanged. The erosion of the tuft of the distal phalange of the 4th digit is new. IMPRESSION:There is erosion of the peter of the distal phalanges of the 2nd through 4th digits as described above. Electronically Signed by Rufus Wang MD 09/24/2018 04:51 P
[2018-09-24 17:20] VITALS: BP 186/74
[2018-09-24] MEDS: ENOXAPARIN 40 MG/0.4 ML SYRINGE (J1650) SC SCH (17:50)
[2018-09-24] MEDS: HumaLOG INSULIN (NovoLOG) PER UNIT SC SCH ×2 (17:50→21:00)
[2018-09-24] MEDS ORDERED: ENOXAPARIN 30 MG/0.3 ML SYR (J1650) SC SCH (18:00)
--- NOTE | 2018-09-24 18:45 | CR ---
DATE OF CONSULTATION: 09/24/2018 at 6:24 p.m. CHIEF COMPLAINT: A 67-year-old male seen for evaluation of an ulceration with cellulitis of both feet. The ulceration is on the distal aspect of the 2nd toe of the left foot. Patient was previously hospitalized; however, when he went home states he could not afford his antibiotics. I asked him how much was the copay. Patient states he did not go to the pharmacy to see how much the copay would be. Says that he is poor and did not want to pay the copay for his antibiotics. Patient is a poor historian; however, he states he saw Dr. Syed approximately 2 months ago. Patient states that his toe was spontaneously amputated. Does not remember any trauma. States it happened sometime last summer. He is seen today for evaluation. PAST MEDICAL HISTORY: 1. Diabetes, type 2. 2. Retinopathy. 3. Nephropathy. 4. Chronic kidney disease, stage III. 5. Hypertension. 6. Glaucoma. 7. Peripheral arterial disease. Patient has had a stent placed in his left lower extremity. PAST SURGICAL HISTORY: 1. Ventral hernia repair times two. 2. Transurethral resection of the prostate (TURP) in 2008. 3. Penile prosthesis repair in 2009. 4. Stent, left leg, 2017. 5. Penile prosthetic replacement 2017. PHYSICAL EXAMINATION: Reveal a pleasant 67-year-old male. Patient is sitting at his bedside. States he is having no pain or discomfort today. Patient has dressings on both lower extremities. His dressings were removed, revealing bruising of the distal aspect of the 2nd and 3rd toes with some erythema. Patient does have a dried blister on his left hallux without discharge. There is an ulceration on the 2nd toe of the left foot. This ulceration has erythema surrounding the ulcer itself with some yellow necrotic tissue. Nursing staff states they just finished culturing the 2nd toe of the left foot. His x-rays were reviewed, revealing loss of the distal peter of the 2nd, 3rd, and 4th toes. There are no active signs of osteomyelitis. Evaluation of the ulceration on the 2nd toe reveals an ulceration that is 17 mm from distal to proximal, 13 mm from medial to lateral, and 1 mm in depth with yellow fibrinous tissue. After an appropriate time-out, verification of side, and informed consent being signed and understood by the patient, an incisional debridement was done to the subcutaneous tissue, removing the yellow fibrinous tissue to a good granulation tissue base. Dry sterile dressing was applied on the patient's left and right lower extremities. ASSESSMENT: Stage III ulceration, 2nd toe, left foot, with bilateral cellulitis. Patient has edema of the left lower extremity greater than the right. Dorsalis pedis pulse is palpable on the right foot, not palpable on the left foot. Posterior tibialis pulse is not palpable bilateral. Order is written to apply a dry sterile dressing once a day to the patient's extremities bilateral. He will continue on his antibiotics. This could be tailored according to his culture and sensitivity. His blood and wound cultures are pending. Patient's questions are answered
[2018-09-24] MEDS: LEVEMIR (INSULIN DETEMIR) 1 UNITS/0.01ML SC SCH (21:00)
[2018-09-24] MEDS: PERCOCET 5MG/325MG TAB PO PRN (21:16)
[2018-09-24] MEDS: DOXYCYCLINE HYCLATE 100 MG TAB PO SCH (21:16)
[2018-09-24 22:00] VITALS: BP 159/63
[2018-09-25] MEDS: PERCOCET 5MG/325MG TAB PO PRN ×4 (01:41→20:48)
[2018-09-25 06:00] VITALS: BP 154/63
[2018-09-25] MEDS: ceFAZolin SOD 1 GM in D5W MINI-BAG PLUS 50 ML IV SCH ×3 (06:02→22:52)
[2018-09-25 06:06] LABS: BASO # 0.1 10^3/uL (0.0-0.2); BASO % 0.7 % (0.0-1.0); EOS # 0.4 10^3/uL (0.0-0.50); EOS % 3.7 % (0.0-3.0); HEMATOCRIT 31.1 % (42.0-52.0); HEMOGLOBIN 9.9 g/dl (13.5-17.5); LYMPH % 18.4 % (24.0-44.0); MEAN CORPUSCULAR HEMOGLOBIN 27.5 pg (27.0-33.0); MEAN CORPUSCULAR HGB CONC 31.8 g/dl (32.0-36.5); MEAN CORPUSCULAR VOLUME 86.4 fl (80.0-96.0); MONO # 0.8 10^3/uL (0.0-0.8); MONO % 7.1 % (0.0-5.0); NEUTROPHILS # 7.2 10^3/uL (1.8-7.7); NEUTROPHILS % 67.7 % (36.0-66.0); PLATELET COUNT, AUTOMATED 317 10^3/uL (150-450); WHITE BLOOD COUNT 10.7 10^3/uL (4.0-10.0)
[2018-09-25 06:24] LABS: HEMOGLOBIN A1c 9.1 %
[2018-09-25 06:26] LABS: INR 1.11; PROTHROMBIN TIME 14.4 SECONDS (12.1-14.4)
[2018-09-25 06:27] LABS: CREATININE FOR GFR 1.49 MG/DL (0.70-1.30); GLOMERULAR FILTRATION RATE 49.9 (>49); PARTIAL THROMBOPLASTIN TIME 43.7 SECONDS (25.4-37.6); POTASSIUM SERUM 4.2 MEQ/L (3.5-5.1)
[2018-09-25 06:28] LABS: CALCIUM LEVEL 8.5 MG/DL (8.8-10.2); CHOLESTEROL RISK RATIO 3.904 (<5)
[2018-09-25] MEDS: LEVEMIR (INSULIN DETEMIR) 1 UNITS/0.01ML SC SCH ×2 (09:00→20:43)
[2018-09-25] MEDS ORDERED: CLOPIDOGREL 75 MG TAB PO SCH (09:00)
[2018-09-25] MEDS: HumaLOG INSULIN (NovoLOG) PER UNIT SC SCH ×4 (09:42→20:42)
[2018-09-25] MEDS: GABAPENTIN 100 MG CAP PO SCH (09:42)
[2018-09-25] MEDS: CLOPIDOGREL 75 MG TAB PO SCH (09:42)
[2018-09-25] MEDS: OMEPRAZOLE 20 MG CAP PO SCH (09:42)
[2018-09-25] MEDS: SIMVASTATIN 40 MG TAB PO SCH (09:43)
[2018-09-25] MEDS: FUROSEMIDE 40 MG TAB PO SCH (09:43)
[2018-09-25] MEDS: DOXYCYCLINE HYCLATE 100 MG TAB PO SCH ×2 (09:43→20:48)
[2018-09-25] MEDS: amLODIPine 10 MG TAB PO SCH (09:43)
[2018-09-25] MEDS: LISINOPRIL 40 MG TAB PO SCH (09:43)
--- NOTE | 2018-09-25 11:29 | CR.PDOC ---
General Date of Consultation: Sep 25, [address] Pena. REASON FOR CONSULTATION: Left foot wound HPI: 67 y/o M with peripheral arterial disease and stent in LLE,on chronic plavix. 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 He has been previously [facility] by [facility] and was discharged by Dr. Syed as his right 2nd-5th toes auto-amputated. 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 He had worsening erythema involving the dorsum of the left foot radiatin g to his pearce with tenderness, warmth, and swelling, and was sent to the ER for IV antibiotics. Pt denies any fevers, chills. S/P debridement of Lt 2nd toes 09/24/[address] Anguiano. The pt is returning from [place]. Denies any fevers, chills, weakness, fatigue, Headache, Chest Pain, Shortness of breath, cough, palpitations, abdominal pain, N/V/D or changes in bowel or bladder habits. 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 PE: GEN: 67yoM, appears stated age. No acute distress. Alert and oriented x 3. HEENT: Normocephalic, atraumatic. Moist mucous membranes. CHEST: Regular rate and rhythm, +S1, +S2 LUNGS: Clear to auscultation bilaterally. No wheezes, rales, or rhonchi. ABD: Round, soft, non-tender, non-distended. +Bowel sounds throughout. No rebound or guarding. EXT: erythema, swelling, and tenderness on the dorsum of the left foot appears decreased this AM related to areas of demarcation. S/P debridement of lt 2nd toe, dried blister appearing lesion noted Lt hallux. DP/PT pulses obtained by doppler, right 2nd-5th toes s/p autoamputation black discoloration noted at tips. SKIN: [place], dry, warm. Capillary refill <2sec. No rashes. NEURO: Alert and oriented x 3. No focal deficits appreciated. A&P: 1. Left foot wound. S/P debridement as per Dr Anguiano 09/24/18. BLE arterial US result reviewed with Dr Pena, BL SFA occlusive disease noted. Pt will need LLE angiogram followed by RLE angiogram. Will plan to proceed when renal function improves. Recommend possibly consider nephrology consult. SCr1.49 this AM. Previous baseline 0.8-1.0. 2. Cellulitis LLE. mgmt as per primary team. 3. PVD/ h/o LLE stent. Plavix DVT prophylaxis. Lovenox. Thank you for your consultation. We will continue to follow along with you. Vital Signs/I&O Vital Signs Date Time Temp Pulse Resp B/P (MAP) Pulse Ox O2 Delivery O2 Flow Rate FiO2 09/25/18 09:43 59 154/63 09/25/18 06:32 16 09/25/18 06:00 97.7 97 09/24/18 14:51 Room Air I&O- Last 24 Hours up to 6 AM 09/25/18 06:00 Intake Total 1130 ml Output Total 375 ml Balance 755 ml Laboratory Data Labs 24H Laboratory Tests 2 09/24/18 11:52: Immature Granulocyte % (Auto) 3.2H, White Blood Count 9.6, Red Blood Count 3.89L, Hemoglobin 11.0L, Hematocrit 34.4L, Mean Corpuscular Volume 88.4, Mean Corpuscular Hemoglobin 28.3, Mean Corpuscular Hemoglobin Concent 32.0, Red Cell Distribution Width 14.5, Platelet Count 339, Neutrophils (%) (Auto) 70.3H, Lymphocytes (%) (Auto) 15.7L, Monocytes (%) (Auto) 7.0H, Eosinophils (%) (Auto) 2.8, Basophils (%) (Auto) 1.0, Neutrophils # (Auto) 6.7, Lymphocytes # (Auto) 1.5, Monocytes # (Auto) 0.7, Eosinophils # (Auto) 0.3, Basophils # (Auto) 0.1, Nucleated Red Blood Cells % (auto) 0.0, Erythrocyte Sedimentation Rate 117H, Anion Gap 8, Glomerular Filtration Rate 43.5L, Lactic Acid Level 1.1, Calcium Level 8.3L, Aspartate Amino Transf (AST/SGOT) 18, Alanine Aminotransferase (ALT/SGPT) 12, Alkaline Phosphatase 112, Total Bilirubin 0.3, Direct Bilirubin 0.1, C-Reactive Protein, Quantitative 10.40H, BV-Qhy-U-Type Natriuretic Peptide 662H, Total Protein 6.8, Albumin 2.1L, Albumin/Globulin Ratio 0.45L 09/24/18 16:52: Bedside Glucose (Misc Panel) 147H 09/24/18 17:26: Bedside Glucose (Misc Panel) 128H 09/24/18 19:34: Bedside Glucose (Misc Panel) 134H 09/25/18 05:30: Immature Granulocyte % (Auto) 2.4, White Blood Count 10.7H, Red Blood Count 3.60L, Hemoglobin 9.9L, Hematocrit 31.1L, Mean Corpuscular Volume 86.4, Mean Corpuscular Hemoglobin 27.5, Mean Corpuscular Hemoglobin Concent 31.8L, Red Cell Distribution Width 14.3, Platelet Count 317, Neutrophils (%) (Auto) 67.7H, Lymphocytes (%) (Auto) 18.4L, Monocytes (%) (Auto) 7.1H, Eosinophils (%) (Auto) 3.7H, Basophils (%) (Auto) 0.7, Neutrophils # (Auto) 7.2, Lymphocytes # (Auto) 2.0, Monocytes # (Auto) 0.8, Eosinophils # (Auto) 0.4, Basophils # (Auto) 0.1, Nucleated Red Blood Cells % (auto) 0.0, Prothrombin Time 14.4, Prothromb Time International Ratio 1.11, Activated Partial Thromboplast Time 43.7H, Anion Gap 6L, Glomerular Filtration Rate 49.9, Estimated Mean Plasma Glucose 214H, Hemoglobin A1c 9.1, Calcium Level 8.5L, Triglycerides Level 163H, LDL Cholesterol 28, Total Cholesterol 82, Non-HDL Cholesterol (LDL + VLDL) 61, Total HDL Cholesterol 21L, Cholesterol/HDL Ratio 3.904 CBC/BMP Laboratory Tests 09/24/18 11:52 Red Blood Count 3.89 L, Mean Corpuscular Volume 88.4, Mean Corpuscular Hemoglobin 28.3, Mean Corpuscular Hemoglobin Concent 32.0, Red Cell Distribution Width 14.5, Neutrophils (%) (Auto) 70.3 H, Lymphocytes (%) (Auto) 15.7 L, Monocytes (%) (Auto) 7.0 H, Eosinophils (%) (Auto) 2.8, Basophils (%) (Auto) 1.0, Neutrophils # (Auto) 6.7, Lymphocytes # (Auto) 1.5, Monocytes # (Auto) 0.7, Eosinophils # (Auto) 0.3, Basophils # (Auto) 0.1 09/25/18 05:30 Red Blood Count 3.60 L, Mean Corpuscular Volume 86.4, Mean Corpuscular Hemoglobin 27.5, Mean Corpuscular Hemoglobin Concent 31.8 L, Red Cell Distribution Width 14.3, Neutrophils (%) (Auto) 67.7 H, Lymphocytes (%) (Auto) 18.4 L, Monocytes (%) (Auto) 7.1 H, Eosinophils (%) (Auto) 3.7 H, Basophils (%) (Auto) 0.7, Neutrophils # (Auto) 7.2, Lymphocytes # (Auto) 2.0, Monocytes # (Auto) 0.8, Eosinophils # (Auto) 0.4, Basophils # (Auto) 0.1 Microbiology Microbiology 09/24/18 Blood Culture, Received Pending 09/24/18 Blood Culture, Received Pending 09/24/18 MRSA Screen, Received Pending 09/24/18 Wound Culture, Received Pending Allergies Coded Allergies: No Known Allergies (Verified , 12/16/08) Home Medications Scheduled Amlodipine Besylate (Amlodipine Besylate) 10 Mg Tablet, 10 MG PO DAILY, (Reported) Clopidogrel Bisulfate (Clopidogrel) 75 Mg Tablet, 75 MG PO DAILY, (Reported) Furosemide (Furosemide) 40 Mg Tablet, 40 MG PO DAILY, (Reported) Gabapentin (Gabapentin) 100 Mg Capsule, 100 MG PO DAILY, (Reported) RX IS FOR BID, BUT PATIENT STATES HE ONLY TAKES DAILY Insulin Detemir (Levemir) 100 Unit/1 Ml Vial, 40 UNITS SC QAM, (Reported) Insulin Detemir (Levemir) 100 Unit/1 Ml Vial, 70 UNITS SC QHS, (Reported) Linagliptin (Tradjenta) 5 Mg Tablet, 5 MG PO DAILY, (Reported) Lisinopril (Lisinopril) 40 Mg Tablet, 40 MG PO DAILY, (Reported) Metformin HCl (Metformin HCl) 1,000 Mg Tablet, 1,000 MG PO DAILY, (Reported) RX IS FOR BID, PATIENT STATES HE ONLY TAKES DAILY Omeprazole (Omeprazole) 20 Mg Capsule.dr, 20 MG PO DAILY, (Reported) Simvastatin (Zocor) 80 Mg Tablet, 80 MG PO DAILY, (Reported) Scheduled PRN Naproxen (Naproxen) 500 Mg Tablet.dr, 500 MG PO BID PRN for PAIN, (Reported) Mariana Baumann Sep 25, 2018 11:29
--- NOTE | 2018-09-25 11:56 | IPNPDOC ---
Date Seen The patient was seen on 09/25/18. Progress Note Subjective: No c/o overnight aside from persistent throbbing pain 10/10 at worst when tries to bear weight. pain improved to 7/10 on pain scale with pain meds, which he wants to keep at the present dosage. per podiatry, continue abx until sensitivities return. ultrasound to evaluate pt's peripheral arterial disease managed by vascular surgery. no fever overnight. glucose is stable. no other is sues. Objective Physical Examination Vitals: pls see below General Exam: Positive: Alert, Cooperative, Mild Distress (from left LE pain) Eye Exam: Positive: EOMI Chest Exam: Positive: Normal air movement, Diminished; Negative: Rales, Rhonchi, Wheezing Heart Exam: Positive: Rate Normal, Normal S1, Normal S2; Negative: Gallops Abdomen Exam: Positive: Normal bowel sounds, Soft, Hernia (left inguinal, reducible ); Negative: Tenderness, Hepatospenomegaly Extremity Exam: erythema, swelling, and tenderness on the dorsum of the left foot, anterior left leg to just below the knee. 2cm ulcer on left 2nd toe, dorsalis pedis, posterior tibialis pulses by dopplar ), Breakdown (toes of b/l feet demonstrate cracks/dry skin/flaking,\\/ onychomycosis , right 2nd-5th toes s/p autoamputation black discoloration noted. 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 Pt did not machine operator picker his medications because "I couldn't pay for them, " and was seen at his primary care physician's office today. He had worsening erythema involving the dorsum of the left foot radiating to his pearce with tenderness, warmth, and swelling, prompting him to be sent to the ER for IV antibiotics. Pt denies any fevers, chills. He admits to increasing pain with ambulation, swelling, and minimal serous discharge from the ulcer on the left 2nd toe. He [facility] and was discharged by Dr. Syed as his right 2nd-5th toes auto-amputated. He denies fever, chills, night sweats, n/v, abdominal pain, diarrhea, pain with urination, CP or SOB, no recent traumatic events to the left lower leg. Recurrent Cellulitis of left LE due to medical noncompliane -pt admits to not picking up his medications as "I couldn't pay for them." -wound cultures and sensitivities sent. - He has history of MRSA + wound cultures, on doxycycline started on 09/24/18 - on iv cefazolin started on 09/24/18 to cover mSSA and strep - Head Bander And Liner Operator consulted for nonhealing diabetic ulcer for debridement. -pain control with prn percocet -PFS consulted to help pay for meds and home care at discharge. Peripheral Arterial disease s/p stent in Left LE -on chronic plavix -vascular surgery consulted to evaluate circulation HTN -resumed home meds -uncontrolled due to pain in the left leg DM2 -resumed levemir insulin -const carb diet -SSI w/hypoglycemic protocol Peripheral neuropathy -c/w gabapentin DLP -c/w home atorvastatin CKD 3 -baseline cr around 1, 1.6 on presentation -hold hctz for now DVT px- Lovenox renally dosed. Plan / VTE VTE Prophylaxis Ordered?: Yes VS, I&O, 24H, Fishbone Vital Signs/I&O Vital Signs Date Time Temp Pulse Resp B/P (MAP) Pulse Ox O2 Delivery O2 Flow Rate FiO2 09/25/18 06:32 16 09/25/18 06:00 97.7 59 154/63 (93) 97 09/24/18 14:51 Room Air I&O- Last 24 Hours up to 6 AM 09/25/18 06:00 Intake Total 1130 ml Output Total 375 ml Balance 755 ml Laboratory Data 24H LABS Laboratory Tests 2 09/24/18 11:52: Immature Granulocyte % (Auto) 3.2H, White Blood Count 9.6, Red Blood Count 3.89L, Hemoglobin 11.0L, Hematocrit 34.4L, Mean Corpuscular Volume 88.4, Mean Corpuscular Hemoglobin 28.3, Mean Corpuscular Hemoglobin Concent 32.0, Red Cell Distribution Width 14.5, Platelet Count 339, Neutrophils (%) (Auto) 70.3H, Lymphocytes (%) (Auto) 15.7L, Monocytes (%) (Auto) 7.0H, Eosinophils (%) (Auto) 2.8, Basophils (%) (Auto) 1.0, Neutrophils # (Auto) 6.7, Lymphocytes # (Auto) 1.5, Monocytes # (Auto) 0.7, Eosinophils # (Auto) 0.3, Basophils # (Auto) 0.1, Nucleated Red Blood Cells % (auto) 0.0, Erythrocyte Sedimentation Rate 117H, Anion Gap 8, Glomerular Filtration Rate 43.5L, Lactic Acid Level 1.1, Calcium Level 8.3L, Aspartate Amino Transf (AST/SGOT) 18, Alanine Aminotransferase (ALT/SGPT) 12, Alkaline Phosphatase 112, Total Bilirubin 0.3, Direct Bilirubin 0.1, C-Reactive Protein, Quantitative 10.40H, VJ-Mlu-L-Type Natriuretic Peptide 662H, Total Protein 6.8, Albumin 2.1L, Albumin/Globulin Ratio 0.45L 09/24/18 16:52: Bedside Glucose (Misc Panel) 147H 09/24/18 17:26: Bedside Glucose (Misc Panel) 128H 09/24/18 19:34: Bedside Glucose (Misc Panel) 134H 09/25/18 05:30: Immature Granulocyte % (Auto) 2.4, White Blood Count 10.7H, Red Blood Count 3.60L, Hemoglobin 9.9L, Hematocrit 31.1L, Mean Corpuscular Volume 86.4, Mean Corpuscular Hemoglobin 27.5, Mean Corpuscular Hemoglobin Concent 31.8L, Red Cell Distribution Width 14.3, Platelet Count 317, Neutrophils (%) (Auto) 67.7H, Lymp hocytes (%) (Auto) 18.4L, Monocytes (%) (Auto) 7.1H, Eosinophils (%) (Auto) 3.7H, Basophils (%) (Auto) 0.7, Neutrophils # (Auto) 7.2, Lymphocytes # (Auto) 2.0, Monocytes # (Auto) 0.8, Eosinophils # (Auto) 0.4, Basophils # (Auto) 0.1, Nucleated Red Blood Cells % (auto) 0.0, Prothrombin Time 14.4, Prothromb Time International Ratio 1.11, Activated Partial Thromboplast Time 43.7H, Anion Gap 6L, Glomerular Filtration Rate 49.9, Estimated Mean Plasma Glucose 214H, Hemoglobin A1c 9.1, Calcium Level 8.5L, Triglycerides Level 163H, LDL Cholesterol 28, Total Cholesterol 82, Non-HDL Cholesterol (LDL + VLDL) 61, Total HDL Cholesterol 21L, Cholesterol/HDL Ratio 3.904 CBC/BMP Laboratory Tests 09/24/18 11:52 Red Blood Count 3.89 L, Mean Corpuscular Volume 88.4, Mean Corpuscular Hem oglobin 28.3, Mean Corpuscular Hemoglobin Concent 32.0, Red Cell Distribution Width 14.5, Neutrophils (%) (Auto) 70.3 H, Lymphocytes (%) (Auto) 15.7 L, Monocytes (%) (Auto) 7.0 H, Eosinophils (%) (Auto) 2.8, Basophils (%) (Auto) 1.0, Neutrophils # (Auto) 6.7, Lymphocytes # (Auto) 1.5, Monocytes # (Auto) 0.7, Eosinophils # (Auto) 0.3, Basophils # (Auto) 0.1 09/25/18 05:30 Red Blood Count 3.60 L, Mean Corpuscular Volume 86.4, Mean Corpuscular Hemoglobin 27.5, Mean Corpuscular Hemoglobin Concent 31.8 L, Red Cell Distribution Width 14.3, Neutrophils (%) (Auto) 67.7 H, Lymphocytes (%) (Auto) 18.4 L, Monocytes (%) (Auto) 7.1 H, Eosinophils (%) (Auto) 3.7 H, Basophils (%) (Auto) 0.7, Neutrophils # (Auto) 7.2, Lymphocytes # (Auto) 2.0, Monocytes # (Auto) 0.8, Eosinophils # (Auto) 0.4, Basophils # (Auto) 0.1 Microbiology Microbiology 09/24/18 Blood Culture, Received Pending 09/24/18 Blood Culture, Received Pending 09/24/18 MRSA Screen, Received Pending 09/24/18 Wound Culture, Received Pending YANCI NEWTON MD Sep 25, 2018 07:08
--- NOTE | 2018-09-25 13:05 | REP ---
Bilateral lower extremity arterial Doppler ultrasound: History: Cellulitis left foot with ulcers. Findings: Ankle brachial indices are normal measured at 0.91 on the right and 0.95 on the left. Atherosclerotic calcifications are noted in the arterial system extensively and bilaterally. The patient reports as a a history of a vascular stent placement in the left leg. This was not seen. Evidence of a significant stenosis in the mid superficial femoral artery is noted on the left. Some stenosis is observed in the tibioperoneal trunk. On the right there is evidence of mid superficial femoral artery stenosis. Right lower extremity velocity chart: Right CF A 140 cm/S Profunda 135 Proximal SFA 120 Mid SFA 150/219/152 Distal SFA 88 Popliteal 73 Proximal AT A 126 Tibioperoneal trunk 75 Proximal DINKEY MECHANIC 86 Distal DINKEY MECHANIC 36 Distal AT A 83 Left lower extremity arterial Doppler velocity chart: Left CF A 145 cm/S Profunda 124 Proximal SFA 147 Mid SFA 130/258/153 Distal SFA 120 Popliteal 96 Proximal AT A 67 Tibioperoneal trunk 127/254/126 Proximal DINKEY MECHANIC 103 Distal DINKEY MECHANIC 65 Distal AT A 61 Electronically Signed by Huang Mora MD 09/25/2018 12:56 P
[2018-09-25 14:00] VITALS: BP 152/61
[2018-09-25] MEDS: ENOXAPARIN 40 MG/0.4 ML SYRINGE (J1650) SC SCH (18:25)
[2018-09-25 20:28] VITALS: BP 155/61
[2018-09-26 06:07] LABS: BASO # 0.1 10^3/uL (0.0-0.2); BASO % 0.6 % (0.0-1.0); EOS # 0.3 10^3/uL (0.0-0.50); EOS % 2.5 % (0.0-3.0); HEMATOCRIT 28.8 % (42.0-52.0); HEMOGLOBIN 9.1 g/dl (13.5-17.5); LYMPH # 1.7 10^3/uL (1.5-4.5); LYMPH % 14.3 % (24.0-44.0); MEAN CORPUSCULAR HEMOGLOBIN 27.2 pg (27.0-33.0); MEAN CORPUSCULAR HGB CONC 31.6 g/dl (32.0-36.5); MONO # 0.7 10^3/uL (0.0-0.8); MONO % 5.9 % (0.0-5.0); NEUTROPHILS # 8.9 10^3/uL (1.8-7.7); NEUTROPHILS % 75.3 % (36.0-66.0); PLATELET COUNT, AUTOMATED 297 10^3/uL (150-450); RED BLOOD COUNT 3.35 10^6/uL (4.30-6.10); WHITE BLOOD COUNT 11.8 10^3/uL (4.0-10.0)
[2018-09-26] MEDS: ceFAZolin SOD 1 GM in D5W MINI-BAG PLUS 50 ML IV SCH ×3 (06:19→23:06)
[2018-09-26 06:37] LABS: CREATININE FOR GFR 1.43 MG/DL (0.70-1.30); GLOMERULAR FILTRATION RATE 52.4 (>49); POTASSIUM SERUM 4.7 MEQ/L (3.5-5.1)
[2018-09-26 06:50] VITALS: BP 153/60
[2018-09-26] MEDS: amLODIPine 10 MG TAB PO SCH (07:58)
[2018-09-26] MEDS: HumaLOG INSULIN (NovoLOG) PER UNIT SC SCH ×4 (07:59→20:53)
[2018-09-26] MEDS: LISINOPRIL 40 MG TAB PO SCH (07:59)
[2018-09-26] MEDS: LEVEMIR (INSULIN DETEMIR) 1 UNITS/0.01ML SC SCH ×2 (07:59→20:53)
[2018-09-26] MEDS: GABAPENTIN 100 MG CAP PO SCH (08:00)
[2018-09-26] MEDS: SENOKOT S TAB PO PRN ×2 (08:00→23:05)
[2018-09-26] MEDS: OMEPRAZOLE 20 MG CAP PO SCH (08:00)
[2018-09-26] MEDS: PERCOCET 5MG/325MG TAB PO PRN ×3 (08:00→21:01)
[2018-09-26] MEDS: DOXYCYCLINE HYCLATE 100 MG TAB PO SCH ×2 (08:01→21:00)
[2018-09-26] MEDS: CLOPIDOGREL 75 MG TAB PO SCH (08:01)
[2018-09-26] MEDS: FUROSEMIDE 40 MG TAB PO SCH (08:01)
[2018-09-26] MEDS: SIMVASTATIN 40 MG TAB PO SCH (08:01)
[2018-09-26] MEDS: NS 1,000 ML IV SCH ×2 (09:31→20:44)
--- NOTE | 2018-09-26 09:38 | IPNPDOC ---
Date Seen The patient was seen on 09/26/18. Progress Note Vascular Surgery Dr Pena. REASON FOR CONSULTATION: Left foot wound HPI: 67 y/o M with peripheral arterial disease and stent in LLE,on chronic plavix. 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 He has been [facility] and was discharged by Dr. Syed as his right 2nd-5th toes auto-amputated. Pt recently discharged from [facility] 09/18-09/21/18 for left leg cellulitis treated with 3days of IV ceftaroline, and discharged on augmentin and bactrim due to history of mrsa, but Pt did not pick remover his medications stating he could not pay for them. He had worsening erythema involving the dorsum of the left foot radiating to his pearce with tenderness, warmth, and swelling, and was sent to the ER for IV antibiotics. Pt denies any fevers, chills. S/P debridement of Lt 2nd toes 09/24/[address] Anguiano. Denies any fevers, chills, weakness, fatigue, Headache, Chest Pain, Shortness of breath, cough, palpitations, abdominal pain, N/V/D or changes in bowel or bladder habits. 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 No acute distress. Alert and oriented x 3. HEENT: Normocephalic, atraumatic. Moist mucous membranes. CHEST: Regular rate and rhythm, +S1, +S2 LUNGS: Clear to auscultation bilaterally. No wheezes, rales, or rhonchi. ABD: Round, soft, non-tender, non-distended. +Bowel sounds throughout. No rebound or guarding. EXT: erythema, swelling, and tenderness on the dorsum of the left foot appears decreased this AM related to areas of demarcation. S/P debridement of lt 2nd toe, dried blister appearing lesion noted Lt hallux. right 2nd-5th toes s/p autoamputation black discoloration noted at tips. SKIN: [place], dry, warm. No rashes. NEURO: Alert and oriented x 3. No focal deficits appreciated. A&P: 1. B/L Foot wounds. S/P debridement of Lt foot as per Dr Anguiano 09/24/18. BLE arterial US result reviewed with Dr Pena, BL SFA occlusive disease noted. Pt will need LLE angiogram followed by RLE angiogram. SCr 1.43 this AM. Previous baseline 0.8-1.0. nephrology consulted. Monitor renal function. IVF at 100cc added this AM to avoid contrast nephropathy, plan for Angiogram this afternoon as per Dr Pena. 2. Cellulitis LLE. mgmt as per primary team. 3. PVD/ h/o LLE stent. Plavix DVT prophylaxis. Lovenox. VS, I&O, 24H, Fishbone Vital Signs/I&O Vital Signs Date Time Temp Pulse Resp B/P (MAP) Pulse Ox O2 Delivery O2 Flow Rate FiO2 09/26/18 08:30 20 09/26/18 07:58 62 153/60 09/26/18 06:50 98.5 95 09/24/18 14:51 Room Air I&O- Last 24 Hours up to 6 AM 09/26/18 06:00 Intake Total 1400 ml Output Total 1625 ml Balance -225 ml Laboratory Data 24H LABS Laboratory Tests 2 09/25/18 11:47: Bedside Glucose (Misc Panel) 194H 09/25/18 16:36: Bedside Glucose (Misc Panel) 162H 09/25/18 20:24: Bedside Glucose (Misc Panel) 169H 09/26/18 05:27: Immature Granulocyte % (Auto) 1.4, White Blood Count 11.8H, Red Blood Count 3.35L, Hemoglobin 9.1L, Hematocrit 28.8L, Mean Corpuscular Volume 86.0, Mean Corpuscular Hemoglobin 27.2, Mean Corpuscular Hemoglobin Concent 31.6L, Red Cell Distribution Width 14.2, Platelet Count 297, Neutrophils (%) (Auto) 75.3H, Lymphocytes (%) (Auto) 14.3L, Monocytes (%) (Auto) 5.9H, Eosinophils (%) (Auto) 2.5, Basophils (%) (Auto) 0.6, Neutrophils # (Auto) 8.9H, Lymphocytes # (Auto) 1.7, Monocytes # (Auto) 0.7, Eosinophils # (Auto) 0.3, Basophils # (Auto) 0.1, Nucleated Red Blood Cells % (auto) 0.0, Anion Gap 6L, Glomerular Filtration Rate 52.4, Blood Urea Nitrogen 18, Creatinine 1.43H, Sodium Level 138, Potassium Level 4.7, Chloride Level 104, Carbon Dioxide Level 28, Calcium Level 8.0L CBC/BMP Laboratory Tests 09/26/18 05:27 Red Blood Count 3.35 L, Mean Corpuscular Volume 86.0, Mean Corpuscular Hemoglobin 27.2, Mean Corpuscular Hemoglobin Concent 31.6 L, Red Cell Distribution Width 14.2, Neutrophils (%) (Auto) 75.3 H, Lymphocytes (%) (Auto) 14.3 L, Monocytes (%) (Auto) 5.9 H, Eosinophils (%) (Auto) 2.5, Basophils (%) (Auto) 0.6, Neutrophils # (Auto) 8.9 H, Lymphocytes # (Auto) 1.7, Monocytes # (Auto) 0.7, Eosinophils # (Auto) 0.3, Basophils # (Auto) 0.1, Calcium Level 8.0 L Microbiology Microbiology 09/24/18 Blood Culture - Preliminary, Resulted No growth after 24 hours . All specim... 09/24/18 Blood Culture - Preliminary, Resulted No growth after 24 hours . All specim... 09/24/18 MRSA Screen, Received Pending 09/24/18 Wound Culture, Received Pending Mariana Baumann Sep 26, 2018 09:38
--- NOTE | 2018-09-26 10:09 | IPNPDOC ---
Date Seen The patient was seen on 09/26/18. Progress Note Subjective: Per vascular surgery, pt will need b/l angiogram and nephrology consulted to prevent contrast nephropathy in light of ckd3. No c/o overnight aside from persistent throbbing pain 10/10 at worst when tries to bear weight. pain improved to 7/10 on pain scale with pain meds, which he wa nts to keep at the present dosage. per podiatry, continue abx until sensitivities return. no fever overnight. glucose is stable. no other issues per RN. Objective Physical Examination Vitals: pls see below General Exam: Positive: Alert, Cooperative, Mild Distress (from left LE pain) Eye Exam: Positive: EOMI Chest Exam: Positive: Normal air movement, Diminished; Negative: Rales, Rhonchi, Wheezing Heart Exam: Positive: Rate Normal, Normal S1, Normal S2; Negative: Gallops Abdomen Exam: Positive: Normal bowel sounds, Soft, Hernia (left inguinal, reducible ); Negative: Tenderness, Hepatospenomegaly Extremity Exam: erythema, swelling, and tenderness on the dorsum of the left foot, anterior left leg to just below the knee. 2cm ulcer on left 2nd toe, dorsalis pedis, posterior tibialis pulses by dopplar ), Breakdown (toes of b/l feet demonstrate cracks/dry skin/flaking,\\/ onychomycosis , right 2nd-5th toes s/p autoamputation black discoloration noted. 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 Pt did not hand picker his medications because "I couldn't pay for them, " and was seen at his primary care physician's office today. He had worsening erythema involving the dorsum of the left foot radiating to his pearce with tenderness, warmth, and swelling, prompting him to be sent to the ER for IV antibiotics. Pt denies any fevers, chills. He admits to increasing pain with ambulation, swelling, and minimal serous discharge from the ulcer on the left 2nd toe. He has been [facility] and was discharged by Dr. Syed as his right 2nd-5th toes auto-amputated. He denies fever, chills, night sweats, n/v, abdominal pain, diarrhea, pain with urination, CP or SOB, no recent traumatic events to the left lower leg. Recurrent Cellulitis of left LE due to medical noncompliane -pt admits to not picking up his medications as "I couldn't pay for them." -wound cultures and sensitivities sent. - He has history of MRSA + wound cultures, on doxycycline started on 09/24/18 - on iv cefazolin started on 09/24/18 to cover mSSA and strep - Radio Control Crane Operator consulted for nonhealing diabetic ulcer for debridement. -pain control with prn percocet -PFS consulted to help pay for meds and home care at discharge. -Per vascular surgery, pt will need b/l angiogram and nephrology consulted to prevent contrast nephropathy in light of ckd3. Bilateral SFA occlusion/ Peripheral Arterial disease s/p stent in Left LE -on chronic plavix -vascular surgery consulted to evaluate circulation -Per vascular surgery, pt will need b/l angiogram and nephrology consulted to prevent contrast nephropathy in light of ckd3. HTN -resumed home meds -uncontrolled due to pain in the left leg DM2 -resumed levemir insulin -const carb diet -SSI w/hypoglycemic protocol Peripheral neuropathy -c/w gabapentin DLP -c/w home atorvastatin CKD 3 -baseline cr around 1, 1.6 on presentation -hold hctz for now -Per vascular surgery, pt will need b/l angiogram and nephrology consulted to prevent contrast nephropathy in light of ckd3. DVT px- Lovenox renally dosed. Plan / VTE VTE Prophylaxis Ordered?: Yes VS, I&O, 24H, Fishbone Vital Signs/I&O Vital Signs Date Time Temp Pulse Resp B/P (MAP) Pulse Ox O2 Delivery O2 Flow Rate FiO2 09/26/18 08:30 20 09/26/18 07:58 62 153/60 09/26/18 06:50 98.5 95 09/24/18 14:51 Room Air I&O- Last 24 Hours up to 6 AM 09/26/18 06:00 Intake Total 1400 ml Output Total 1625 ml Balance -225 ml Laboratory Data 24H LABS Laboratory Tests 2 09/25/18 11:47: Bedside Glucose (Misc Panel) 194H 09/25/18 16:36: Bedside Glucose (Misc Panel) 162H 09/25/18 20:24: Bedside Glucose (Misc Panel) 169H 09/26/18 05:27: Immature Granulocyte % (Auto) 1.4, White Blood Count 11.8H, Red Blood Count 3.35L, Hemoglobin 9.1L, Hematocrit 28.8L, Mean Corpuscular Volume 86.0, Mean Corpuscular Hemoglobin 27.2, Mean Corpuscular Hemoglobin Concent 31.6L, Red Cell Distribution Width 14.2, Platelet Count 297, Neutrophils (%) (Auto) 75.3H, Lymphocytes (%) (Auto) 14.3L, Monocytes (%) (Auto) 5.9H, Eosinophils (%) (Auto) 2.5, Basophils (%) (Auto) 0.6, Neutrophils # (Auto) 8.9H, Lymphocytes # (Auto) 1.7, Monocytes # (Auto) 0.7, Eosinophils # (Auto) 0.3, Basophils # (Auto) 0.1, Nucleated Red Blood Cells % (auto) 0.0, Anion Gap 6L, Glomerular Filtration Rate 52.4, Blood Urea Nitrogen 18, Creatinine 1.43H, Sodium Level 138, Potassium Level 4.7, Chloride Level 104, Carbon Dioxide Level 28, Calcium Level 8.0L CBC/BMP Laboratory Tests 09/26/18 05:27 Red Blood Count 3.35 L, Mean Corpuscular Volume 86.0, Mean Corpuscular Hemoglobin 27.2, Mean Corpuscular Hemoglobin Concent 31.6 L, Red Cell Distribution Width 14.2, Neutrophils (%) (Auto) 75.3 H, Lymphocytes (%) (Auto) 14.3 L, Monocytes (%) (Auto) 5.9 H, Eosinophils (%) (Auto) 2.5, Basophils (%) (Auto) 0.6, Neutrophils # (Auto) 8.9 H, Lymphocytes # (Auto) 1.7, Monocytes # (Auto) 0.7, Eosinophils # (Auto) 0.3, Basophils # (Auto) 0.1, Calcium Level 8.0 L Microbiology Microbiology 09/24/18 Blood Culture - Preliminary, Resulted No growth after 24 hours . All specim... 09/24/18 Blood Culture - Preliminary, Resulted No growth after 24 hours . All specim... 09/24/18 MRSA Screen - Final, Complete 09/24/18 Wound Culture, Received Pending YANCI NEWTON MD Sep 26, 2018 10:09
--- NOTE | 2018-09-26 11:41 | CR ---
DATE OF CONSULTATION: 09/26/2018 REQUESTING PHYSICIAN: Lucinda Zamudio MD REASON FOR CONSULTATION: Chronic kidney disease and peripheral vascular disease requiring angiogram. HISTORY OF PRESENT ILLNESS: Mr. Edouard is a 67-year-old gentleman with known history of type 2 diabetes, history of diabetic retinopathy, history of nephropathy with chronic kidney disease (CKD) III at baseline, hypertension, peripheral arterial disease and glaucoma. He has prior history of stent in his left leg. He was admitted with cellulitis of the left lower extremity and is scheduled for an angiogram later this afternoon to assess for peripheral vascular disease. He is known to have CKD III and due to risk for dye induced acute renal failure a nephrology consultation was requested. The patient is seen this morning on his bedside. PAST MEDICAL AND SURGICAL HISTORY: Significant for: 1. Type 2 diabetes. 2. History of diabetic retinopathy. 3. History of nephropathy with chronic kidney disease stage III. 4. Hypertension. 5. Peripheral arterial disease, status post prior angioplasty of left leg. 6. 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 7. History of glaucoma. PAST SURGICAL HISTORY: Significant for: 1. Transurethral resection of prostate (TURP). 2. Penile prosthesis repair. 3. Ventral hernia repair. 4. Angioplasty of left leg with stent placement. 5. Penile prosthesis replacement. FAMILY HISTORY: There is a significant family history for diabetes and lung problems. Father is . PERSONAL AND SOCIAL HISTORY: The patient has history of smoking in the past, which he quit in 1999. He denies any recreational drug or alcohol use. REVIEW OF SYSTEMS: The patient denies any fever or chills. His eyes are significant for diabetic retinopathy. Nose and throat are unremarkable. Cardiovascular system is negative for dyspnea or chest pain. Respiratory system negative for cough or hemoptysis. Gastrointestinal (GI) system is negative for nausea, vomiting or diarrhea. Genitourinary () system is negative for dysuria or hematuria. Musculoskeletal system is significant for diabetic foot ulcers and cellulitis on left leg. He does not have any peripheral edema. He had does have a history of peripheral neuropathy. Neurological system is negative for stroke or seizures. Psychosocial system is negative for depression or anxiety. Hematological system is negative for any systemic anticoagulation. He denies any excessive bleeding or bruising. PHYSICAL EXAMINATION: Middle-aged gentleman laying in the bed without any acute distress. Temperature is 98.5 degrees Fahrenheit, heart rate 62 per minute and respiratory rate 18 per minute. Blood pressure 153/60 mmHg and oxygen saturation 95% on room air. His head is atraumatic. Neck is supple and there is no JVD or thyroid enlargement. Ears, nose and throat are unremarkable. Heart sounds are regular and lungs sound clear to auscultation bilaterally. Abdomen soft and nontender and without any audible abdominal bruit. There is no palpable organomegaly. Extremities have no cyanosis or clubbing. Lower extremities have cellulitis on the left leg. He also has mild cellulitis on the right foot. There are small ulcers. Neurologically he is awake, alert and oriented times three. LABORATORY DATA: Today's labs show WBC count 11.8, hemoglobin 9.1 and hematocrit 28.8. Sodium is 138, potassium 4.7, CO2 28, BUN 18 and creatinine 1.43. Glucose 232 and calcium 8.0. ALLERGIES: The patient has no known drug allergies. MEDICATIONS: His current medications in the hospital include: - simvastatin 80 mg daily - Percocet 1 tablet as needed every 6 hours for pain - omeprazole 20 mg daily - lisinopril 40 mg daily - insulin per sliding scale - Levemir insulin 70 units at bedtime - gabapentin 100 mg daily - furosemide 40 mg daily - Lovenox 40 mg daily - doxycycline 100 mg b.i.d. - Senokot S 2 tablets b.i.d. p.r.n. constipation - Plavix 75 mg daily - amlodipine 10 mg daily - cephazolin 1 gram every 8 hours. PROBLEMS: 1. Chronic kidney disease. Most likely the patient has diabetic nephropathy in view of longstanding diabetes and diabetic retinopathy with chronic kidney disease. We will get urine microalbumin and a urinalysis. Kidney function is probably at about baseline. 2. Peripheral vascular disease and need for angiogram. The patient has slightly elevated risk for dye induced acute renal failure in view of his chronic kidney disease. I will hold off his diuretics and DAMARIS inhibitor for now and hydrate him with normal saline 100 mL per hour. He should get at least 1 liter of normal saline prior to dye infusion and then continue IV fluid until we stop it. His renal function should be checked daily after the angioplasty procedure. At this point, I would recommend to avoid all nephrotoxic medications and dose adjust the antibiotics. We will continue to hold his DAMARIS inhibitor and diuretic for at least 2 days. Thank you for involving me in the care of Mr. Edouard. I will follow him along with you.
[2018-09-26 12:12] LABS: APPEARANCE, URINE CLEAR (CLEAR); BACTERIA, URINE AUTO NEGATIVE (NEGATIVE); BILIRUBIN, URINE AUTO NEGATIVE (NEGATIVE); BLOOD, URINE BLOOD NEGATIVE (NEGATIVE); COLOR, URINE YELLOW (YELLOW); GLUCOSE, URINE (UA) AUTO NEGATIVE (NEGATIVE); KETONE, URINE AUTO NEGATIVE (NEGATIVE); LEUKOCYTE ESTERASE, URINE AUTO TRACE (NEGATIVE); NITRITE, URINE AUTO NEGATIVE (NEGATIVE); PROTEIN, URINE AUTO 2+ mg/dL (NEGATIVE); RBC, URINE AUTO 3 /HPF (0-3); SPECIFIC GRAVITY URINE AUTO 1.009 (1.002-1.035); SQUAMOUS EPITHELIAL CELL UR AU 0 /HPF (0-6); UROBILINOGEN, URINE AUTO 0.2 mg/dL (0.0-2.0); WBC, URINE AUTO 5 /HPF (0-3)
[2018-09-26] MEDS ORDERED: LIDOCAINE 2% MDV 20 ML VIAL As Ordered ONE (13:12)
[2018-09-26] MEDS ORDERED: MIDAZOLAM INJ 2 MG/2 ML VIAL (J2250) As Ordered ONE (13:12)
[2018-09-26] MEDS ORDERED: HEPARIN 1,000 UNITS/ML 10ML VIAL (FOR RADIOLOGY& DIALYSIS ONLY) As Ordered ONE (13:12)
[2018-09-26] MEDS ORDERED: diphenhydrAMINE INJ 50MG/ML VIAL (J1200) As Ordered ONE (13:12)
[2018-09-26] MEDS ORDERED: BUPIVACAINE HCL 0.5% 10 ML VIAL As Ordered ONE (13:12)
[2018-09-26] MEDS ORDERED: fentaNYL 100 MCG/2 ML INJECTION (J3010) As Ordered ONE (13:12)
[2018-09-26] MEDS ORDERED: ISOVUE-300 61% 50ML VIAL (Q9967) As Ordered ONE (13:13)
[2018-09-26 13:41] LABS: CREATININE, URINE 50.4 MG/DL; MAU/CREAT RATIO 936.5 MCG/MG (0.0-30.0)
[2018-09-26] MEDS ORDERED: PROTAMINE SULF INJ 50 MG/5 ML VIAL (J2720) As Ordered ONE (14:21)
[2018-09-26 15:20] VITALS: BP 155/66
[2018-09-26 15:45] VITALS: BP 157/66
[2018-09-26 16:45] VITALS: BP 165/65
[2018-09-26] MEDS: ENOXAPARIN 40 MG/0.4 ML SYRINGE (J1650) SC SCH (18:24)
[2018-09-26 20:28] VITALS: BP 160/65
[2018-09-27 05:52] LABS: BASO # 0.1 10^3/uL (0.0-0.2); BASO % 0.5 % (0.0-1.0); EOS # 0.2 10^3/uL (0.0-0.50); EOS % 1.8 % (0.0-3.0); HEMATOCRIT 28.8 % (42.0-52.0); HEMOGLOBIN 9.2 g/dl (13.5-17.5); LYMPH # 1.9 10^3/uL (1.5-4.5); LYMPH % 15.5 % (24.0-44.0); MEAN CORPUSCULAR HEMOGLOBIN 27.5 pg (27.0-33.0); MEAN CORPUSCULAR HGB CONC 31.9 g/dl (32.0-36.5); MONO # 0.7 10^3/uL (0.0-0.8); MONO % 5.9 % (0.0-5.0); NEUTROPHILS % 74.9 % (36.0-66.0); PLATELET COUNT, AUTOMATED 284 10^3/uL (150-450); RED BLOOD COUNT 3.35 10^6/uL (4.30-6.10)
[2018-09-27 06:14] LABS: CREATININE FOR GFR 1.33 MG/DL (0.70-1.30); GLOMERULAR FILTRATION RATE 56.9 (>49)
[2018-09-27] MEDS: PERCOCET 5MG/325MG TAB PO PRN ×2 (06:33→20:47)
[2018-09-27] MEDS: ceFAZolin SOD 1 GM in D5W MINI-BAG PLUS 50 ML IV SCH (06:33)
[2018-09-27 07:03] VITALS: BP 151/59
[2018-09-27] MEDS: HumaLOG INSULIN (NovoLOG) PER UNIT SC SCH ×4 (07:30→20:33)
--- NOTE | 2018-09-27 08:04 | REPIR ---
DATE OF PROCEDURE: 09/26/2018 ATTENDING SURGEON: Dr. Basilio Pena ASSISTANTS: Karen Rojo and Mickey Castañeda. PREOPERATIVE DIAGNOSES: Nonhealing bilateral lower extremity ulcerations, chronic renal insufficiency, acute kidney injury, bilateral superficial femoral and popliteal arterial atherosclerotic occlusive disease, bilateral tibioperoneal arterial atherosclerotic occlusive disease, diabetes mellitus, left lower extremity cellulitis. POSTOPERATIVE DIAGNOSES: Nonhealing bilateral lower extremity ulcerations, chronic renal insufficiency, acute kidney injury, bilateral superficial femoral and popliteal arterial atherosclerotic occlusive disease, bilateral tibioperoneal arterial atherosclerotic occlusive disease, diabetes mellitus, left lower extremity cellulitis. PROCEDURE: Right common femoral arterial cannulation, selective left common femoral artery catheter placement with left lower extremity angiogram, selective left superficial femoral artery catheter placement with left lower extremity angiogram, selective left popliteal artery catheter placement with left lower extremity angiogram, left superficial femoral artery angioplasty and stent with a 7 x 120 drug-eluting Shannon stent, postdilated with a 6 x 200 mm balloon, left popliteal artery angioplasty and stent with a 7 x 120 Shannon drug-eluting stent postdilated with a 6 x 200 mm balloon, left popliteal artery angioplasty with 6 x 200 mm balloon, left superficial femoral artery angioplasty with 6 x 200 mm balloon, left common femoral artery angioplasty with 6 x 200 mm balloon, Mynx closure of the right common femoral arteriotomy. INDICATION: Patient is a 67-year-old male with left lower extremity cellulitis and nonhealing ulcerations of the calf, foot, and toes, as well as right lower extremity toe ulcers, which are nonhealing. Patient has a history of diabetes mellitus as well as chronic renal insufficiency and presented to the hospital with left lower extremity cellulitis and acute kidney injury. Patient underwent ultrasound, which showed superficial femoral and popliteal arterial occlusive disease as well as tibioperoneal arterial atherosclerotic occlusive disease in both lower extremities. Patient will undergo a left lower extremity angiogram with possible angioplasty, stent, and/or atherectomy. ANESTHESIA: Local with 10 mL of 2% lidocaine mixed with 0.5% Marcaine. FLUOROSCOPY TIME: 5.5 minutes. CONTRAST: 6 mL of Isovue 300. HEPARIN: 7000 units. PROTAMINE: 50 mg. BENADRYL: 50 mg. COMPLICATIONS: None. DRAINS: None. SPECIMENS: None. IMPLANTS: Right common femoral arteriotomy closure with a 6-Zimbabwean Mynx closure device, left superficial femoral artery angioplasty and stenting with a 7 x 120 Shannon drug-eluting stent, left popliteal artery angioplasty and stenting with a 7 x 120 Shannon drug-eluting stent. PROCEDURE: Patient was taken to the angiography suite, placed supine on the angiography room table, and then prepped and draped in the standard surgical fashion. The right common femoral artery was cannulated, catheter was advanced up and over the bifurcation and placed in the left common femoral artery, and an angiogram was performed. This showed diffuse calcific occlusive disease in the distal superficial femoral artery extending into the popliteal artery as well as a second lesion in the popliteal artery at the knee joint which was approximately 95% stenosis. The left popliteal artery was angioplastied and stented with a 7 x 120 Shannon drug-eluting stent, postdilated with a 6 x 200 balloon. The left superficial femoral artery was angioplastied and stented with a 7 x 120 drug-eluting Shannon stent, which was postdilated with a 6 x 120 balloon. The distal popliteal artery was angioplastied with a 6 x 200 balloon. The proximal superficial femoral artery was angioplastied with a 6 x 200 balloon, and the common femoral artery was angioplastied with a 6 x 200 balloon. A completion angiogram showed resolution of the stenoses with excellent flow through the common femoral artery into the superficial femoral artery, popliteal artery, and distal tibial vessels. There was severe tibioperoneal arteriosclerotic occlusive noted on runoff. The catheters and wires were removed, and a Mynx closure device was used to close the arteriotomy in the right common femoral artery with an additional 10 minutes of adjunctive pressure applied for hemostasis. Dressings were then applied. Patient tolerated the procedure well. All instrument, sponge, and needle counts were correct at the end of the case. There were no complications. Dr. Pena was present for and directed the entire case. Patient was transferred to the holding area and subsequent to the floor in stable condition.
[2018-09-27] MEDS: DOXYCYCLINE HYCLATE 100 MG TAB PO SCH (08:12)
[2018-09-27] MEDS: LEVEMIR (INSULIN DETEMIR) 1 UNITS/0.01ML SC SCH ×2 (08:12→20:45)
[2018-09-27] MEDS: SIMVASTATIN 40 MG TAB PO SCH (08:12)
[2018-09-27] MEDS: OMEPRAZOLE 20 MG CAP PO SCH (08:12)
[2018-09-27] MEDS: GABAPENTIN 100 MG CAP PO SCH (08:12)
[2018-09-27] MEDS: CLOPIDOGREL 75 MG TAB PO SCH (08:12)
[2018-09-27] MEDS: amLODIPine 10 MG TAB PO SCH (08:13)
--- NOTE | 2018-09-27 09:55 | IPNPDOC ---
Date Seen The patient was seen on 09/27/18. Progress Note Subjective: Per vascular surgery, pt may be discharged with outpt fu. Physical therapy says, "not safe for discharge. 2 more sessions " as of 09/26/18. wound cx: sensitive to clinda. iv cefazolin and doxy discontinued 09/27/18. pt still c/o 3/10 pain in the leg even at rest, worse with ambulation. no fever or chills. creatinine stable s/p ivfluids no c/o sob. Objective Physical Examination Vitals: pls see below General Exam: Positive: Alert, Cooperative, Mild Distress (from left LE pain) Eye Exam: Positive: EOMI Chest Exam: Positive: Normal air movement, Diminished; Negative: Rales, Rhonchi, Wheezing Heart Exam: Positive: Rate Normal, Normal S1, Normal S2; Negative: Gallops Abdomen Exam: Positive: Normal bowel sounds, Soft, Hernia (left inguinal, reducible ); Negative: Tenderness, Hepatospenomegaly Extremity Exam: erythema, swelling, and tenderness on the dorsum of the left foot, anterior left leg to just below the knee. 2cm ulcer on left 2nd toe, dorsalis pedis, posterior tibialis pulses by dopplar ), Breakdown (toes of b/l feet demonstrate cracks/dry skin/flaking,\\/ onychomycosis , right 2nd-5th toes s/p autoamputation black discoloration noted. 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 He had worsening erythema involving the dorsum of the left foot radiating to his pearce with tenderness, warmth, and swelling, prompting him to be sent to the ER for IV antibiotics. Pt denies any fevers, chills. He admits to i ncreasing pain with ambulation, swelling, and minimal serous discharge from the ulcer on the left 2nd toe. He has been previously treated by [facility] and was discharged by Dr. Syed as his right 2nd-5th toes auto-amputated. He denies fever, chills, night sweats, n/v, abdominal pain, diarrhea, pain with urination, CP or SOB, no recent traumatic events to the left lower leg. Recurrent Cellulitis of left LE due to medical noncompliane -pt admits to not picking up his medications as "I couldn't pay for them." -wound cultures and sensitivities sent. - He has history of MRSA + wound cultures, on doxycycline started on 09/24/18 - on iv cefazolin started on 09/24/18 to cover mSSA and strep - Culinary Intern consulted for nonhealing diabetic ulcer for debridement. -pain control with prn percocet -PFS consulted to help pay for meds and home care at discharge. -Per vascular surgery, pt will need b/l angiogram and nephrology consulted to prevent contrast nephropathy in light of ckd3. Bilateral SFA occlusion/ Peripheral Arterial disease s/p stent in Left LE -on chronic plavix -vascular surgery consulted to evaluate circulation -Per vascular surgery, pt will need b/l angiogram and nephrology consulted to prevent contrast nephropathy in light of ckd3. HTN -resumed home meds -uncontrolled due to pain in the left leg DM2 -resumed levemir insulin -const carb diet -SSI w/hypoglycemic protocol Peripheral neuropathy -c/w gabapentin DLP -c/w home atorvastatin CKD 3 -baseline cr around 1, 1.6 on presentation -hold hctz for now -Per vascular surgery, pt will need b/l angiogram and nephrology consulted to prevent contrast nephropathy in light of ckd3. DVT px- Lovenox renally dosed. Plan / VTE VTE Prophylaxis Ordered?: Yes VS, I&O, 24H, Fishbone Vital Signs/I&O Vital Signs Date Time Temp Pulse Resp B/P (MAP) Pulse Ox O2 Delivery O2 Flow Rate FiO2 09/27/18 08:13 69 151/59 09/27/18 07:03 98.0 18 94 09/24/18 14:51 Room Air I&O- Last 24 Hours up to 6 AM 09/27/18 06:00 Intake Total 2824 ml Output Total 2400 ml Balance 424 ml Laboratory Data 24H LABS Laboratory Tests 2 09/26/18 11:31: Bedside Glucose (Misc Panel) 168H 09/26/18 11:55: Urine Appearance CLEAR, Urine Color YELLOW, Urine pH 6.0, Urine Specific [place] 1.009, Urine Protein 2+H, Urine Glucose (UA) NEGATIVE, Urine Ketones NEGATIVE, Urine Urobilinogen 0.2, Urine Bilirubin NEGATIVE, Urine Leukocyte Esterase TRACEH, Urine Blood NEGATIVE, Urine Nitrite NEGATIVE, Urine WBC (Auto) 5H, Urine RBC (Auto) 3, Urine Hyaline Casts (Auto) 0, Urine Bacteria (Auto) NEGATIVE, Urine Squamous Epithelial Cells 0, Urine Sperm (Auto) , Urine Creatinine 50.4, Urine Microalbumin 472.0, Urine Microalbumin/Creatinine Ratio 936.5H 09/26/18 17:19: Bedside Glucose (Misc Panel) 83 09/26/18 20:02: Bedside Glucose (Misc Panel) 162H 09/27/18 05:18: Immature Granulocyte % (Auto) 1.4, White Blood Count 12.0H, Red Blood Count 3.35L, Hemoglobin 9.2L, Hematocrit 28.8L, Mean Corpuscular Volume 86.0, Mean Corpuscular Hemoglobin 27.5, Mean Corpuscular Hemoglobin Concent 31.9L, Red Cell Distribution Width 14.2, Platelet Count 284, Neutrophils (%) (Auto) 74.9H, Lymphocytes (%) (Auto) 15.5L, Monocytes (%) (Auto) 5.9H, Eosinophils (%) (Auto) 1.8, Basophils (%) (Auto) 0.5, Neutrophils # (Auto) 9.0H, Lymphocytes # (Auto) 1.9, Monocytes # (Auto) 0.7, Eosinophils # (Auto) 0.2, Basophils # (Auto) 0.1, Nucleated Red Blood Cells % (auto) 0.0, Anion Gap 5L, Glomerular Filtration Rate 56.9, Blood Urea Nitrogen 15, Creatinine 1.33H, Sodium Level 140, Potassium Level 4.0, Chloride Level 107, Carbon Dioxide Level 28, Calcium Level 8.0L CBC/BMP Laboratory Tests 09/27/18 05:18 Red Blood Count 3.35 L, Mean Corpuscular Volume 86.0, Mean Corpuscular Hemoglob in 27.5, Mean Corpuscular Hemoglobin Concent 31.9 L, Red Cell Distribution Width 14.2, Neutrophils (%) (Auto) 74.9 H, Lymphocytes (%) (Auto) 15.5 L, Monocytes (%) (Auto) 5.9 H, Eosinophils (%) (Auto) 1.8, Basophils (%) (Auto) 0.5, Neutrophils # (Auto) 9.0 H, Lymphocytes # (Auto) 1.9, Monocytes # (Auto) 0.7, Eosinophils # (Auto) 0.2, Basophils # (Auto) 0.1, Calcium Level 8.0 L Microbiology Microbiology 09/24/18 Blood Culture - Preliminary, Resulted No Growth after 48 hours. All Specime... 09/24/18 Blood Culture - Preliminary, Resulted No Growth after 48 hours. All Specime... 09/24/18 MRSA Screen - Final, Complete 09/24/18 Wound Culture - Final, Complete Staphylococcus Aureus Streptococcus Pyogenes YANCI Sanchez MD Sep 27, 2018 09:55
[2018-09-27] MEDS: SENOKOT S TAB PO PRN (10:35)
[2018-09-27] MEDS: CLINDAMYCIN 600 MG in APPROPRIATE DILUENT 1 EA IV SCH ×3 (10:35→23:35)
--- NOTE | 2018-09-27 11:08 | IPNPDOC ---
Date Seen The patient was seen on 09/27/18. Progress Note Vascular Surgery Dr Pena. REASON FOR CONSULTATION: Left foot wound HPI: 67 y/o M with peripheral arterial disease and stent in LLE,on chronic plavix. 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 He has been previously treated by [facility] and was discharged by Dr. Syed as his right 2nd-5th toes auto-amputated. 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 He had worsening erythema involving the dorsum of the left foot radiating to his pearce with tenderness, warmth, and swelling, and was sent to the ER for IV antibiotics. Pt denies any fevers, chills. S/P debridement of Lt 2nd toes 09/24/[address] Anguiano. Denies any fevers, chills, weakness, fatigue, Headache, Chest Pain, Shortness of breath, cough, palpitations, abdominal pain, N/V/D or changes in bowel or bladder habits. 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 No acute distress. Alert and oriented x 3. HEENT: Normocephalic, atraumatic. Moist mucous membranes. CHEST: Regular rate and rhythm, +S1, +S2 LUNGS: Clear to auscultation bilaterally. No wheezes, rales, or rhonchi. ABD: Round, soft, non-tender, non-distended. +Bowel sounds throughout. No rebound or guarding. EXT: LLE erythema appears decreased related to areas of demarcation. Left foot wound is bandaged. SKIN: No rashes. NEURO: Alert and oriented x 3. No focal deficits appreciated. A&P: 1. B/L Foot wounds. S/P debridement of Lt foot as per Dr Anguiano 09/24/18. BLE arterial US result reviewed with Dr Pena, BL SFA occlusive disease noted. Pt is S/P LLE angiogram with intervention 09/26/18. Plan for RLE angiogram, this can be arranged as outpt if the pt is ready for d/c per primary team. SCr 1.33 this AM. 2. Cellulitis LLE. mgmt as per primary team. 3. PVD/ h/o LLE stent. Plavix 4. CKD. nephrology consulted. Monitor renal function. DVT prophylaxis. Lovenox. VS, I&O, 24H, Fishbone Vital Signs/I&O Vital Signs Date Time Temp Pulse Resp B/P (MAP) Pulse Ox O2 Delivery O2 Flow Rate FiO2 09/27/18 08:13 69 151/59 09/27/18 07:03 98.0 18 94 09/24/18 14:51 Room Air I&O- Last 24 Hours up to 6 AM 09/27/18 06:00 Intake Total 2824 ml Output Total 2400 ml Balance 424 ml Laboratory Data 24H LABS Laboratory Tests 2 09/26/18 11:31: Bedside Glucose (Misc Panel) 168H 09/26/18 11:55: Urine Appearance CLEAR, Urine Color YELLOW, Urine pH 6.0, Urine Specific [place] 1.009, Urine Protein 2+H, Urine Glucose (UA) NEGATIVE, Urine Ketones NEGATIVE, Urine Urobilinogen 0.2, Urine Bilirubin NEGATIVE, Urine Leukocyte Esterase TRACEH, Urine Blood NEGATIVE, Urine Nitrite NEGATIVE, Urine WBC (Auto) 5H, Urine RBC (Auto) 3, Urine Hyaline Casts (Auto) 0, Urine Bacteria (Auto) NEGATIVE, Urine Squamous Epithelial Cells 0, Urine Sperm (Auto) , Urine Creatinine 50.4, Urine Microalbumin 472.0, Urine Microalbumin/Creatinine Ratio 936.5H 09/26/18 17:19: Bedside Glucose (Misc Panel) 83 09/26/18 20:02: Bedside Glucose (Misc Panel) 162H 09/27/18 05:18: Immature Granulocyte % (Auto) 1.4, White Blood Count 12.0H, Red Blood Count 3.35L, Hemoglobin 9.2L, Hematocrit 28.8L, Mean Corpuscular Volume 86.0, Mean Corpuscular Hemoglobin 27.5, Mean Corpuscular Hemoglobin Concent 31.9L, Red Cell Distribution Width 14.2, Platelet Count 284, Neutrophils (%) (Auto) 74.9H, Lymphocytes (%) (Auto) 15.5L, Monocytes (%) (Auto) 5.9H, Eosinophils (%) (Auto) 1.8, Basophils (%) (Auto) 0.5, Neutrophils # (Auto) 9.0H, Lymphocytes # (Auto) 1.9, Monocytes # (Auto) 0.7, Eosinophils # (Auto) 0.2, Basophils # (Auto) 0.1, Nucleated Red Blood Cells % (auto) 0.0, Anion Gap 5L, Glomerular Filtration Rate 56.9, Blood Urea Nitrogen 15, Creatinine 1.33H, Sodium Level 140, Potassium Level 4.0, Chloride Level 107, Carbon Dioxide Level 28, Calcium Level 8.0L CBC/BMP Laboratory Tests 09/27/18 05:18 Red Blood Count 3.35 L, Mean Corpuscular Volume 86.0, Mean Corpuscular Hemoglobin 27.5, Mean Corpuscular Hemoglobin Concent 31.9 L, Red Cell Distribution Width 14.2, Neutrophils (%) (Auto) 74.9 H, Lymphocytes (%) (Auto) 15.5 L, Monocytes (%) (Auto) 5.9 H, Eosinophils (%) (Auto) 1.8, Basophils (%) (Auto) 0.5, Neutrophils # (Auto) 9.0 H, Lymphocytes # (Auto) 1.9, Monocytes # (Auto) 0.7, Eosinophils # (Auto) 0.2, Basophils # (Auto) 0.1, Calcium Level 8.0 L Microbiology Microbiology 09/24/18 Blood Culture - Preliminary, Resulted No Growth after 48 hours. All Specime... 09/24/18 Blood Culture - Preliminary, Resulted No Growth after 48 hours. All Specime... 09/24/18 MRSA Screen - Final, Complete 09/24/18 Wound Culture - Final, Complete Staphylococcus Aureus Streptococcus Pyogenes Grp A Mariana Baumann Sep 27, 2018 11:08
[2018-09-27] MEDS: LACTOBACILLUS ACIDOPHILUS CAP (BACID) PO SCH ×3 (11:52→20:45)
--- NOTE | 2018-09-27 13:02 | IPN ---
DATE: 09/27/2018 Mr. Edouard is seen this morning on his bedside. He underwent lower extremity angiogram and angioplasty yesterday. He is feeling well and denies any dyspnea or chest pain. His IV fluid has already been stopped. There was a successful angioplasty of his common femoral artery on the left side. On physical examination, temperature 98.0 degrees Fahrenheit, heart rate 68 per minute and respiratory rate 18 per minute. Blood pressure 151/59 mmHg and oxygen saturation 94% on room air. Intake and output records from yesterday showed a total intake of about 2400 and output 1800. His head is atraumatic. Neck is supple and without jugular venous distention (JVD) or thyroid enlargement. Lungs clear to auscultation. Heart sounds are regular and without a gallop or murmur. Abdomen: Soft and nontender. Bowel sounds are present. Extremities: Without any cyanosis or clubbing. Left lower extremity cellulitis has improved significantly. Right femoral area angiogram access site is without any bleeding or hematoma. Today's labs show WBC count 12.0, hemoglobin 9.2 and hematocrit 28.8. Sodium 140, potassium 4.0, CO2 28, BUN 15 and creatinine 1.33. Glucose 120 and calcium 8.0. PROBLEMS: 1. Chronic kidney disease. Kidney function is stable and the patient did not have any impact on his kidney function from angiogram yesterday. His renal profile should be checked again tomorrow. 2. Peripheral vascular disease, status post left lower extremity angioplasty. The patient is doing well and had a successful angioplasty done yesterday. Kidney function remains stable. 3. Cellulitis and infected wounds on his feet. The patient is currently afebrile and remains on cephazolin and has been now switched to clindamycin. 4. Hypertension. Blood pressure is well-controlled on current antihypertensive meds.
[2018-09-27 14:00] VITALS: BP 156/63
[2018-09-27] MEDS: ENOXAPARIN 40 MG/0.4 ML SYRINGE (J1650) SC SCH (17:39)
[2018-09-27 22:00] VITALS: BP 158/60
[2018-09-28] MEDS: CLINDAMYCIN 600 MG in APPROPRIATE DILUENT 1 EA IV SCH ×4 (05:24→22:19)
[2018-09-28 06:00] VITALS: BP 138/56
[2018-09-28 06:36] LABS: BASO # 0.1 10^3/uL (0.0-0.2); BASO % 0.4 % (0.0-1.0); EOS # 0.1 10^3/uL (0.0-0.50); EOS % 0.4 % (0.0-3.0); HEMATOCRIT 28.8 % (42.0-52.0); HEMOGLOBIN 9.3 g/dl (13.5-17.5); LYMPH # 1.2 10^3/uL (1.5-4.5); LYMPH % 8.3 % (24.0-44.0); MEAN CORPUSCULAR HEMOGLOBIN 27.5 pg (27.0-33.0); MEAN CORPUSCULAR HGB CONC 32.3 g/dl (32.0-36.5); MEAN CORPUSCULAR VOLUME 85.2 fl (80.0-96.0); MONO % 6.9 % (0.0-5.0); NEUTROPHILS # 11.8 10^3/uL (1.8-7.7); PLATELET COUNT, AUTOMATED 281 10^3/uL (150-450); RED BLOOD COUNT 3.38 10^6/uL (4.30-6.10); WHITE BLOOD COUNT 14.2 10^3/uL (4.0-10.0)
[2018-09-28 06:50] LABS: BLOOD UREA NITROGEN 15 MG/DL (7-18); CALCIUM LEVEL 8.4 MG/DL (8.8-10.2); CARBON DIOXIDE LEVEL 25 MEQ/L (21-32); CHLORIDE LEVEL 108 MEQ/L (98-107); CREATININE FOR GFR 1.15 MG/DL (0.70-1.30); GLOMERULAR FILTRATION RATE > 60.0 (>49); GLUCOSE, FASTING 49 MG/DL (70-100); POTASSIUM SERUM 3.5 MEQ/L (3.5-5.1); SODIUM LEVEL 141 MEQ/L (136-145)
[2018-09-28] MEDS: HumaLOG INSULIN (NovoLOG) PER UNIT SC SCH ×4 (07:30→20:28)
--- NOTE | 2018-09-28 07:56 | IPNPDOC ---
Date Seen The patient was seen on 09/28/18. Progress Note Subjective: Clinically improving, but has not passed home safety evaluation by physical therapy. pt lives alone, and will need home care referral once cleared by PT and dc. Per vascular surgery, pt may be discharged with outpt fu. Physical therapy says, "not safe for discharge. 2 more sessions " as of 09/26/18. wound cx: sensitive to clinda. iv cefazolin and doxy discontinued 09/27/18. pt still c/o 3/10 pain in the leg even at rest, worse with ambulation. no fever or chills. creatinine stable s/p ivfluids no c/o sob. Objective Physical Examination Vitals: pls see below General Exam: Positive: Alert, Cooperative, Mild Distress (from left LE pain) Eye Exam: Positive: EOMI Chest Exam: Positive: Normal air movement, Diminished; Negative: Rales, Rhonchi, Wheezing Heart Exam: Positive: Rate Normal, Normal S1, Normal S2; Negative: Gallops Abdomen Exam: Positive: Normal bowel sounds, Soft, Hernia (left inguinal, reducible ); Negative: Tenderness, Hepatospenomegaly Extremity Exam: improved erythema, swelling, and tenderness on the dorsum of the left foot, anterior left leg to just below the knee. 2cm ulcer on left 2nd toe, dorsalis pedis, posterior tibialis pulses by dopplar ), Breakdown (toes of b/l feet demonstrate cracks/dry skin/flaking,\\/ onychomycosis , right 2nd-5th toes s/p autoamputation black discoloration noted. 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 He had worsening erythema involving the dorsum of the left foot radiating to his pearce with tenderness, warmth, and swelling, prompting him to be sent to the ER for IV antibiotics. Pt denies any fevers, chills. He admits to increasing pain with ambulation, swelling, and minimal serous discharge from the ulcer on the left 2nd toe. He has [facility] and was discharged by Dr. Syed as his right 2nd-5th toes auto-amputated. He denies fever, chills, night sweats, n/v, abdominal pain, diarrhea, pain with urination, CP or SOB, no recent traumatic events to the left lower leg. Recurrent Cellulitis of left LE due to medical noncompliane -pt admits to not picking up his medications as "I couldn't pay for them." -wound cultures and sensitivities sent. - He has history of MRSA + wound cultures, on doxycycline started on 09/24/18 - on iv cefazolin started on 09/24/18 to cover mSSA and strep - Communications Consultant consulted for nonhealing diabetic ulcer for debridement. -pain control with prn percocet -PFS consulted to help pay for meds and home care at discharge. -Per vascular surgery, pt will need b/l angiogram and nephrology consulted to prevent contrast nephropathy in light of ckd3. Bilateral SFA occlusion/ Peripheral Arterial disease s/p stent in Left LE -on chronic plavix -vascular surgery consulted to evaluate circulation -Per vascular surgery, pt will need b/l angiogram and nephrology consulted to prevent contrast nephropathy in light of ckd3. HTN -resumed home meds -uncontrolled due to pain in the left leg DM2 -resumed levemir insulin -const carb diet -SSI w/hypoglycemic protocol Peripheral neuropathy -c/w gabapentin DLP -c/w home atorvastatin CKD 3 -baseline cr around 1, 1.6 on presentation -hold hctz for now -Per vascular surgery, pt will need b/l angiogram and nephrology consulted to prevent contrast nephropathy in light of ckd3. DVT px- Lovenox renally dosed. Plan / VTE VTE Prophylaxis Ordered?: Yes VS, I&O, 24H, Fishbone Vital Signs/I&O Vital Signs Date Time Temp Pulse Resp B/P (MAP) Pulse Ox O2 Delivery O2 Flow Rate FiO2 09/27/18 22:00 98.7 75 18 158/60 (92) 94 09/24/18 14:51 Room Air I&O- Last 24 Hours up to 6 AM 09/28/18 06:00 Intake Total 1300 ml Output Total 730 ml Balance 570 ml Laboratory Data 24H LABS Laboratory Tests 2 09/27/18 11:44: Bedside Glucose (Misc Panel) 101 09/27/18 17:10: Bedside Glucose (Misc Panel) 160H 09/27/18 19:36: Bedside Glucose (Misc Panel) 97 09/28/18 06:00: CBC/BMP Microbiology Microbiology 09/24/18 Blood Culture - Preliminary, Resulted No Growth after 72 hours. All specime... 09/24/18 Blood Culture - Preliminary, Resulted No Growth after 72 hours. All specime... 09/24/18 MRSA Screen - Final, Complete 09/24/18 Wound Culture - Final, Complete Staphylococcus Aureus Streptococcus Pyogenes Grp YANCI COOL MD Sep 28, 2018 06:29
[2018-09-28] MEDS: GABAPENTIN 100 MG CAP PO SCH (08:17)
[2018-09-28] MEDS: amLODIPine 10 MG TAB PO SCH (08:18)
[2018-09-28] MEDS: SIMVASTATIN 40 MG TAB PO SCH (08:18)
[2018-09-28] MEDS: CLOPIDOGREL 75 MG TAB PO SCH (08:18)
[2018-09-28] MEDS: OMEPRAZOLE 20 MG CAP PO SCH (08:18)
[2018-09-28] MEDS: LEVEMIR (INSULIN DETEMIR) 1 UNITS/0.01ML SC SCH ×2 (08:18→20:28)
[2018-09-28] MEDS: LACTOBACILLUS ACIDOPHILUS CAP (BACID) PO SCH ×4 (08:18→20:28)
[2018-09-28 14:04] VITALS: BP 134/49
[2018-09-28] MEDS: PERCOCET 5MG/325MG TAB PO PRN (15:56)
[2018-09-28] MEDS: ENOXAPARIN 40 MG/0.4 ML SYRINGE (J1650) SC SCH (17:25)
[2018-09-28 22:00] VITALS: BP 132/66
[2018-09-29] MEDS: PERCOCET 5MG/325MG TAB PO PRN ×2 (01:15→15:19)
[2018-09-29] MEDS: CLINDAMYCIN 600 MG in APPROPRIATE DILUENT 1 EA IV SCH ×4 (05:07→23:20)
[2018-09-29 06:00] VITALS: BP 138/65
[2018-09-29 06:23] LABS: BASO # 0.1 10^3/uL (0.0-0.2); BASO % 0.8 % (0.0-1.0); EOS # 0.2 10^3/uL (0.0-0.50); EOS % 1.9 % (0.0-3.0); HEMATOCRIT 26.3 % (42.0-52.0); HEMOGLOBIN 8.4 g/dl (13.5-17.5); LYMPH % 19.7 % (24.0-44.0); MEAN CORPUSCULAR HEMOGLOBIN 27.2 pg (27.0-33.0); MEAN CORPUSCULAR HGB CONC 31.9 g/dl (32.0-36.5); MEAN CORPUSCULAR VOLUME 85.1 fl (80.0-96.0); MONO # 0.9 10^3/uL (0.0-0.8); MONO % 8.5 % (0.0-5.0); NEUTROPHILS # 6.8 10^3/uL (1.8-7.7); NEUTROPHILS % 67.9 % (36.0-66.0); PLATELET COUNT, AUTOMATED 294 10^3/uL (150-450); RED BLOOD COUNT 3.09 10^6/uL (4.30-6.10)
[2018-09-29 06:44] LABS: CREATININE FOR GFR 1.28 MG/DL (0.70-1.30); GLOMERULAR FILTRATION RATE 59.5 (>49); POTASSIUM SERUM 4.4 MEQ/L (3.5-5.1)
[2018-09-29] MEDS: LACTOBACILLUS ACIDOPHILUS CAP (BACID) PO SCH ×4 (08:18→20:15)
[2018-09-29] MEDS: CLOPIDOGREL 75 MG TAB PO SCH (08:18)
[2018-09-29] MEDS: SIMVASTATIN 40 MG TAB PO SCH (08:18)
[2018-09-29] MEDS: amLODIPine 10 MG TAB PO SCH (08:18)
[2018-09-29] MEDS: HumaLOG INSULIN (NovoLOG) PER UNIT SC SCH ×4 (08:18→20:01)
[2018-09-29] MEDS: GABAPENTIN 100 MG CAP PO SCH (08:18)
[2018-09-29] MEDS: LEVEMIR (INSULIN DETEMIR) 1 UNITS/0.01ML SC SCH ×2 (08:19→20:02)
[2018-09-29] MEDS: OMEPRAZOLE 20 MG CAP PO SCH (08:19)
--- NOTE | 2018-09-29 09:53 | IPNPDOC ---
Date Seen The patient was seen on 09/29/18. Progress Note Subjective: Pt refused physical therapy on 09/27/18, and discharge date could not be anticipated. He c/o reducible ventral hernia which has been evaluated by surgery who then required cardiology clearance prior to repair. Pt denies abdominal pain, nausea, or vomiting. Hernia is reducible, and outpt followup is the overall plan. Pt has been sleeping, eating and moving his bowels. He does not have any fever, chills. Labs have been stable. Pain is controlled and pt does not want current regimen changed. Clinically improving, but has not passed home safety evaluation by physical therapy. pt lives alone, and will need home care referral once cleared by PT and dc.Per vascular surgery, pt may be discharged with outpt fu. Physical therapy says, "not safe for discharge. 2 more sessions " as of 09/26/18. wound cx: sensitive to clinda. iv cefazolin and doxy discontinued 09/27/18. Objective Physical Examination Vitals: pls see below General Exam: Positive: Alert, Cooperative, Mild Distress (from left LE pain) Eye Exam: Positive: EOMI Chest Exam: Positive: Normal air movement, Diminished; Negative: Rales, Rhonchi, Wheezing Heart Exam: Positive: Rate Normal, Normal S1, Normal S2; Negative: Gallops Abdomen Exam: Positive: Normal bowel sounds, Soft, Hernia (left inguinal, reducible ); Negative: Tenderness, Hepatospenomegaly Extremity Exam: improved erythema, swelling, and tenderness on the dorsum of the left foot, anterior left leg to just below the knee. 2cm ulcer on left 2nd toe, dorsalis pedis, posterior tibialis pulses by dopplar ), Breakdown (toes of b/l feet demonstrate cracks/dry skin/flaking,\\/ onychomycosis , right 2nd-5th toes s/p autoamputation black discoloration noted. 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 He had worsening erythema involving the dorsum of the left foot radiating to his pearce with tenderness, warmth, and swelling, prompting him to be sent to the ER for IV antibiotics. Pt denies any fevers, chills. He admits to increasing pain with ambulation, swelling, and minimal serous discharge from the ulcer on the left 2nd toe. He has been [facility] by [facility] and was discharged by Dr. Syed as his right 2nd-5th toes auto-amputated. He denies fever, chills, night sweats, n/v, abdominal pain, diarrhea, pain with urination, CP or SOB, no recent traumatic events to the left lower leg. Recurrent Cellulitis of left LE due to medical noncompliane -pt admits to not picking up his medications as "I couldn't pay for them." -wound cultures and sensitivities sent. - He has history of MRSA + wound cultures, on doxycycline started on 09/24/18 - on iv cefazolin started on 09/24/18 to cover mSSA and strep - Recovery Coordinator consulted for nonhealing diabetic ulcer for debridement. -pain control with prn percocet -PFS consulted to help pay for meds and home care at discharge. -Per vascular surgery, pt will need b/l angiogram and nephrology consulted to prevent contrast nephropathy in light of ckd3. Bilateral SFA occlusion/ Peripheral Arterial disease s/p stent in Left LE -on chronic plavix -vascular surgery consulted to evaluate circulation -Per vascular surgery, pt will need b/l angiogram and nephrology consulted to prevent contrast nephropathy in light of ckd3. HTN -resumed home meds -uncontrolled due to pain in the left leg DM2 -resumed levemir insulin -const carb diet -SSI w/hypoglycemic protocol Peripheral neuropathy -c/w gabapentin DLP -c/w home atorvastatin CKD 3 -baseline cr around 1, 1.6 on presentation -hold hctz for now -Per vascular surgery, pt will need b/l angiogram and nephrology consulted to prevent contrast nephropathy in light of ckd3. Left reducible hernia -outpt surgeon requested cardiology clearance prior to repair -no signs of incarceraton -reducible at bedside DVT px- Lovenox renally dosed. Plan / VTE VTE Prophylaxis Ordered?: Yes VS, I&O, 24H, Fishbone Vital Signs/I&O Vital Signs Date Time Temp Pulse Resp B/P (MAP) Pulse Ox O2 Delivery O2 Flow Rate FiO2 09/29/18 06:00 98.2 66 18 138/65 (89) 94 09/24/18 14:51 Room Air I&O- Last 24 Hours up to 6 AM 09/29/18 06:00 Intake Total 1780 ml Output Total 900 ml Balance 880 ml Laboratory Data 24H LABS Laboratory Tests 2 09/28/18 08:07: Bedside Glucose (Misc Panel) 64L 09/28/18 11:33: Bedside Glucose (Misc Panel) 130H 09/28/18 16:20: Bedside Glucose (Misc Panel) 157H 09/28/18 20:05: Bedside Glucose (Misc Panel) 144H 09/29/18 05:53: CBC/BMP Microbiology Microbiology 09/24/18 Blood Culture - Preliminary, Resulted No Growth after 72 hours. All specime... 09/24/18 Blood Culture - Preliminary, Resulted No Growth after 72 hours. All specime... 09/24/18 MRSA Screen - Final, Complete 09/24/18 Wound Culture - Final, Complete Staphylococcus Aureus Streptococcus Pyogenes YANCI Sanchez MD Sep 29, 2018 06:17
[2018-09-29 11:28] LABS: PERCENT SATURATION 9.9 % (19.7-50.0)
[2018-09-29] MEDS: FERROUS GLUCONATE 324 MG TAB PO SCH (14:09)
[2018-09-29 14:11] VITALS: BP 132/49
[2018-09-29] MEDS: IRON SUCROSE 200 MG in NS 100 ML IV SCH (15:24)
--- NOTE | 2018-09-29 16:52 | IPN ---
DATE: 09/28/2018 SUBJECTIVE Patient was seen and examined at the bedside today morning. He is afebrile, hemodynamically stable. He reports that his foot swelling and pain is improving. He denies any edema. His renal function is stable. Creatinine is down to 1.1 today. OBJECTIVE: VITAL SIGNS: Temperature is 99.6 degrees Fahrenheit, blood pressure 134/49, pulse is 66, respiratory of 18, saturating 97% on room air. INTAKE AND OUTPUT: Urine output recorded is 1.3 liters yesterday, 600 mL so far today since overnight. Weight in the bed scale is not available. PHYSICAL EXAMINATION GENERAL: Patient is awake, alert, oriented times three, laying in bed in no apparent distress. HEAD AND NECK EXAM: Extraocular muscles intact. Pupils equally round and reactive to light. Mucous membranes are moist. Neck is supple. There is no jugular venous distention (JVD). CARDIOVASCULAR: S1, S2. Regular rate. No edema of the bilateral lower extremities. RESPIRATORY: Chest is clear to auscultation bilaterally. Bilateral equal air entry. No rales or rhonchi. ABDOMEN: Soft. Positive bowel sounds. Nontender. No organomegaly. MUSCULOSKELETAL: Patient has dressings on bilateral feet. Otherwise, no erythema was noted. CENTRAL NERVOUS SYSTEM (PROCESS PLANNER): No focal deficit. Power is 5/5 in all extremities. PSYCHIATRIC: Normal mood and affect. LABORATORY REVIEW: Complete blood count (CBC) showed a WBC of 14.2, hemoglobin 93, platelets of 181. Basic metabolic panel (BMP) showed sodium 141, potassium 3.5, chloride 108, bicarbonate 25, BUN 15, creatinine is 1.1, calcium 8.4. CURRENT INPATIENT MEDICATIONS: Patient's of medications were all reviewed by me. Patient was started on clindamycin 600 mg intravenous (IV) every 6 hours. There is no other change in the medications today as compared with yesterday. ASSESSMENT/PLAN 1. Chronic kidney disease stage III. Patient's renal function has actually improved better than his baseline. His GFR is more than 60 today. His angiotensin-converting enzyme (DAMARIS) inhibitors and diuretics were held for preparation for his angiogram. Electrolyte levels are within the acceptable range. 2. Hypertension with chronic kidney disease. Blood pressure is controlled with the current dose of amlodipine. Patient was on lisinopril 40 mg daily at home. At this point, DAMARIS inhibitors on hold. I would try to slowly the reintroduce DAMARIS inhibitors, because patient has proteinuria on urinalysis done on admission as well. 3. Cellulitis and bilateral foot wounds. Patient is currently on clindamycin. Cultures are growing Staphylococcus aureus and Streptococcus pyogenes. The rest of the management is as per primary team. 4. Peripheral vascular disease. Patient is status post angiogram of bilateral lower extremities. Blood supply is significantly better. Cellulitis is improving. He continues to be on Plavix and Lovenox. 5. Diabetes mellitus type 2. Insulin dose, Levemir and sliding scale is as per primary team. Patient will be restarted on low dose of DAMARIS inhibitors or angiotensin receptor blockers once his renal function gets stabilized.
[2018-09-29] MEDS: ENOXAPARIN 40 MG/0.4 ML SYRINGE (J1650) SC SCH (17:35)
[2018-09-29 22:00] VITALS: BP 128/48
[2018-09-30] MEDS: PERCOCET 5MG/325MG TAB PO PRN ×2 (02:37→08:05)
[2018-09-30] MEDS: CLINDAMYCIN 600 MG in APPROPRIATE DILUENT 1 EA IV SCH ×4 (04:43→22:13)
[2018-09-30 06:00] VITALS: BP 137/46
[2018-09-30] MEDS: HumaLOG INSULIN (NovoLOG) PER UNIT SC SCH ×4 (08:04→20:49)
[2018-09-30] MEDS: CLOPIDOGREL 75 MG TAB PO SCH (08:04)
[2018-09-30] MEDS: OMEPRAZOLE 20 MG CAP PO SCH (08:04)
[2018-09-30] MEDS: LACTOBACILLUS ACIDOPHILUS CAP (BACID) PO SCH ×4 (08:04→20:49)
[2018-09-30] MEDS: GABAPENTIN 100 MG CAP PO SCH (08:04)
[2018-09-30] MEDS: LEVEMIR (INSULIN DETEMIR) 1 UNITS/0.01ML SC SCH ×2 (08:04→20:49)
[2018-09-30] MEDS: FERROUS GLUCONATE 324 MG TAB PO SCH (08:04)
[2018-09-30] MEDS: SIMVASTATIN 40 MG TAB PO SCH (08:05)
[2018-09-30] MEDS: LOSARTAN 25 MG TAB PO SCH (08:05)
[2018-09-30] MEDS: amLODIPine 5 MG TAB PO SCH (08:05)
--- NOTE | 2018-09-30 10:19 | IPN ---
DATE OF SERVICE: 09/29/2018 SUBJECTIVE: The patient was seen and examined at the bedside today morning. Renal function is stable. Creatinine continues to fluctuate around 1.1-1.2. There is a slight drop in his hemoglobin to 8.4. Blood pressure is very well controlled. Otherwise, he denies any active complaints at this point. OBJECTIVE: Vital signs: Temperature is 98.2 degrees Fahrenheit, blood pressure 138/65, pulse is 66, respiratory rate of 16, saturating 94% on room air. Intake and output: Urine output recorded is 600 mL so far today since overnight. Weight in the bed scale is not available. PHYSICAL EXAMINATION: General: The patient is awake, alert, oriented times three, laying in bed. No apparent distress. Head and neck examination: Extraocular muscles intact. Pupils equally round and reactive to light. Mucous membranes are moist. Neck is supple. There is no jugular venous distention (JVD). Cardiovascular: S1, S2, regular rate. 1+ edema of the left lower extremity. Respiratory: Chest is clear to auscultation bilaterally. Bilateral equal air entry. No rales or rhonchi. Abdomen: Soft. Positive bowel sounds. Nontender. No organomegaly. Musculoskeletal: The patient has a dressing on the bilateral lower extremities. He has mild tenderness on deep palpation on the left leg and 1+ edema. Otherwise, there is no erythema. Central nervous system (ACCOUNT INFORMATION CLERK): No focal deficit. Power is 5/5 in bilateral upper extremities. LABORATORY REVIEW: Complete blood count (CBC) showed a WBC of 10, hemoglobin 8.4, platelets of 294. Basic metabolic profile (BMP) showed sodium 138, potassium 4.4, chloride 106, bicarbonate 26, BUN 15, creatinine is 1.2, it was 1.15 yesterday. Iron level is 19, TIBC is 191, transferrin saturation is 9.9%, ferritin is 96. CURRENT INPATIENT MEDICATIONS: The patient's medications were all reviewed by me. He continues to be on intravenous (IV) clindamycin. I have decreased the patient's amlodipine to 5 mg daily, and I have started him on losartan 25 mg p.o. daily. I have also ordered Venofer 200 mg IV every 48 hours times three doses. No other change in the medications today as compared with yesterday. ASSESSMENT AND PLAN: 1. Chronic kidney disease stage III. The patient's renal function is stable. Creatinine has been fluctuating around 1.2-1.3. I am going to start low dose of angiotensin receptor yves. The patient most likely has diabetic nephropathy. 2. Hypertension. Blood pressure is very well controlled with amlodipine 10 mg daily. However, because of his proteinuria on urinalysis, I am going to start low dose of losartan 25 mg daily, and amlodipine dose has been decreased to 5 mg daily. 3. Iron-deficiency anemia. I have started the patient on iron tablets by mouth daily, and I have also ordered Venofer 200 mg IV every 48 hours time-dosed with three doses. 4. Left foot cellulitis. The patient is currently on clindamycin. Leukocytosis is improving.
--- NOTE | 2018-09-30 11:35 | IPNPDOC ---
Date Seen The patient was seen on 09/30/18. Progress Note Subjective: No issues overnight. awaiting physical therapy clearance for hospital discharge. due to pain, patient refused therapy on 09/27/18 Pt refused physical therapy on 09/27/18, and discharge date could not be anticipated. He c/o reducible ventral hernia which has been evaluated by surgery who then required cardiology clearance prior to repair. Pt denies abdominal pain, nausea, or vomiting. Hernia is reducible, and outpt followup is the overall plan. Pt has been sleeping, eating and moving his bowels. He does not have any fever, chills. Labs have been stable. Pain is controlled and pt does not want current regimen changed. Clinically improving, but has not passed home safety evaluation by physical therapy. pt lives alone, and will need home care referral once cleared by PT and dc.Per vascular surgery, pt may be discharged with outpt fu. Physical therapy says, "not safe for discharge. 2 more sessions " as of 09/26/18. wound cx: sensitive to clinda. iv cefazolin and doxy discontinued 09/27/18. Objective Physical Examination Vitals: pls see below General Exam: Positive: Alert, Cooperative, Mild Distress (from left LE pain) Eye Exam: Positive: EOMI Chest Exam: Positive: Normal air movement, Diminished; Negative: Rales, Rhonchi, Wheezing Heart Exam: Positive: Rate Normal, Normal S1, Normal S2; Negative: Gallops Abdomen Exam: Positive: Normal bowel sounds, Soft, Hernia (left inguinal, reducible ); Negative: Tenderness, Hepatospenomegaly Extremity Exam: improved erythema, swelling, and tenderness on the dorsum of the left foot, anterior left leg to just below the knee. 2cm ulcer on left 2nd toe, dorsalis pedis, posterior tibialis pulses by dopplar ), Breakdown (toes of b/l feet demonstrate cracks/dry skin/flaking,\\/ onychomycosis , right 2nd-5th toes s/p autoamputation black discoloration noted. 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 He had worsening erythema involving the dorsum of the left foot radiating to his pearce with tenderness, warmth, and swelling, prompting him to be sent to the ER for IV antibiotics. Pt denies any fevers, chills. He admits to increasing pain with ambulation, swelling, and minimal serous discharge from the ulcer on the left 2nd toe. He has been [facility] by [facility] and was discharged by Dr. Syed as his right 2nd-5th toes auto-amputated. He denies fever, chills, night sweats, n/v, abdominal pain, diarrhea, pain with urination, CP or SOB, no recent traumatic events to the left lower leg. Recurrent Cellulitis of left LE due to medical noncompliane -pt admits to not picking up his medications as "I couldn't pay for them." -wound cultures and sensitivities sent. - He has history of MRSA + wound cultures, on doxycycline started on 09/24/18 - on iv cefazolin started on 09/24/18 to cover mSSA and strep - Molecular Biology Director consulted for nonhealing diabetic ulcer for debridement. -pain control with prn percocet -PFS consulted to help pay for meds and home care at discharge. -Per vascular surgery, pt will need b/l angiogram and nephrology consulted to prevent contrast nephropathy in light of ckd3. Bilateral SFA occlusion/ Peripheral Arterial disease s/p stent in Left LE -on chronic plavix -vascular surgery consulted to evaluate circulation -Per vascular surgery, pt will need b/l angiogram and nephrology consulted to prevent contrast nephropathy in light of ckd3. HTN -resumed home meds -uncontrolled due to pain in the left leg DM2 -resumed levemir insulin -const carb diet -SSI w/hypoglycemic protocol Peripheral neuropathy -c/w gabapentin DLP -c/w home atorvastatin CKD 3 -baseline cr around 1, 1.6 on presentation -hold hctz for now -Per vascular surgery, pt will need b/l angiogram and nephrology consulted to prevent contrast nephropathy in light of ckd3. Left reducible hernia -outpt surgeon requested cardiology clearance prior to repair -no signs of incarceraton -reducible at bedside DVT px- Lovenox renally dosed. Plan / VTE VTE Prophylaxis Ordered?: Yes VS, I&O, 24H, Fishbone Vital Signs/I&O Vital Signs Date Time Temp Pulse Resp B/P (MAP) Pulse Ox O2 Delivery O2 Flow Rate FiO2 09/30/18 08:05 137/46 09/30/18 08:05 72 09/30/18 08:05 18 09/30/18 06:00 98.0 95 09/24/18 14:51 Room Air I&O- Last 24 Hours up to 6 AM 09/30/18 06:00 Intake Total 1400 ml Output Total 975 ml Balance 425 ml Laboratory Data 24H LABS Laboratory Tests 2 09/29/18 16:19: Bedside Glucose (Misc Panel) 216H 09/29/18 19:51: Bedside Glucose (Misc Panel) 126H 09/30/18 06:10: Bedside Glucose (Misc Panel) 225H Microbiology Microbiology 09/24/18 Blood Culture - Final, Complete NO GROWTH AFTER 5 DAYS 09/24/18 Blood Culture - Final, Complete NO GROWTH AFTER 5 DAYS 09/24/18 MRSA Screen - Final, Complete 09/24/18 Wound Culture - Final, Complete Staphylococcus Aureus Streptococcus Pyogenes AYNCI Sanchez MD Sep 30, 2018 11:35
--- NOTE | 2018-09-30 15:31 | IPN ---
DATE OF SERVICE: 09/30/2018 SUBJECTIVE: Patient was seen and examined at the bedside today morning. He is afebrile, hemodynamically stable. There are no labs available today. He denies any active complaints. OBJECTIVE: Vital signs: Temperature is 98 degrees Fahrenheit, blood pressure 137/46, pulse is 72, respiratory rate of 18, saturating 95% on room air. Intake and output: Urine output recorded at 975 mL yesterday, 300 mL so far today since overnight. Weight in the bed scale is not available. PHYSICAL EXAM: General: Patient is awake, alert, oriented times three, laying in bed. No apparent distress. Head and neck exam: Extraocular muscles intact. Pupils equally round and reactive to light. Mucous membranes are moist. Neck is supple. There is no jugular venous distention (JVD). Cardiovascular: S1, S2, regular rate. Trace edema of the left lower extremity. Respiratory: Chest is clear to auscultation bilaterally. Bilateral equal air entry. No rales or rhonchi. Abdomen: Soft. Positive bowel sounds. Nontender. No organomegaly. Musculoskeletal: Bilateral feet have dressing. There is no erythema in the legs now. Mild tenderness of the left foot on palpation Central nervous system ([employer]): No focal deficit. Power is 5/5 in all extremities. LAB REVIEW: BMP and CBC are from yesterday. There are no new labs available today. CURRENT INPATIENT MEDICATIONS: Patient's medications were all reviewed by me. He continues to be on intravenous (IV) clindamycin. He was started on IV Venofer yesterday. His amlodipine dose was changed to 5 mg yesterday, and he has been started on low dose of losartan 25 mg by mouth daily. ASSESSMENT AND PLAN: 1. Chronic kidney disease stage III. Renal function is stable. He has been started on low dose angiotensin receptor yves. Renal profile will be checked tomorrow morning. 2. Hypertension. Blood pressure is optimized. Continue amlodipine 5 mg daily and losartan 25 mg daily. 3. Iron-deficiency anemia. Patient has been started on IV Venofer. Check CBC in the morning. 4. Left foot cellulitis. Patient continues to be on IV clindamycin. White cell count was better yesterday.
[2018-09-30] MEDS: ENOXAPARIN 40 MG/0.4 ML SYRINGE (J1650) SC SCH (17:40)
[2018-09-30 20:22] VITALS: BP 140/77
[2018-10-01] MEDS: CLINDAMYCIN 600 MG in APPROPRIATE DILUENT 1 EA IV SCH ×4 (04:18→23:21)
[2018-10-01 05:56] LABS: BASO # 0.1 10^3/uL (0.0-0.2); EOS # 0.2 10^3/uL (0.0-0.50); HEMOGLOBIN 8.7 g/dl (13.5-17.5); LYMPH # 1.6 10^3/uL (1.5-4.5); LYMPH % 17.7 % (24.0-44.0); MEAN CORPUSCULAR HEMOGLOBIN 27.1 pg (27.0-33.0); MEAN CORPUSCULAR HGB CONC 32.2 g/dl (32.0-36.5); MEAN CORPUSCULAR VOLUME 84.1 fl (80.0-96.0); MONO # 0.8 10^3/uL (0.0-0.8); NEUTROPHILS # 6.5 10^3/uL (1.8-7.7); NEUTROPHILS % 69.7 % (36.0-66.0); PLATELET COUNT, AUTOMATED 426 10^3/uL (150-450); RED BLOOD COUNT 3.21 10^6/uL (4.30-6.10); WHITE BLOOD COUNT 9.3 10^3/uL (4.0-10.0)
[2018-10-01 06:24] LABS: ALBUMIN 1.8 GM/DL (3.2-5.2); BLOOD UREA NITROGEN 13 MG/DL (7-18); CARBON DIOXIDE LEVEL 26 MEQ/L (21-32); CHLORIDE LEVEL 106 MEQ/L (98-107); CREATININE FOR GFR 1.14 MG/DL (0.70-1.30); GLOMERULAR FILTRATION RATE > 60.0 (>49); GLUCOSE, FASTING 90 MG/DL (70-100); PHOSPHORUS LEVEL 3.8 MG/DL (2.5-4.9); SODIUM LEVEL 139 MEQ/L (136-145)
[2018-10-01 07:10] VITALS: BP 141/76
[2018-10-01] MEDS: HumaLOG INSULIN (NovoLOG) PER UNIT SC SCH ×4 (07:30→21:00)
[2018-10-01] MEDS: LEVEMIR (INSULIN DETEMIR) 1 UNITS/0.01ML SC SCH ×2 (08:57→21:00)
[2018-10-01] MEDS: PERCOCET 5MG/325MG TAB PO PRN ×3 (09:06→21:05)
[2018-10-01] MEDS: CLOPIDOGREL 75 MG TAB PO SCH (09:07)
[2018-10-01] MEDS: OMEPRAZOLE 20 MG CAP PO SCH (09:07)
[2018-10-01] MEDS: SIMVASTATIN 40 MG TAB PO SCH (09:07)
[2018-10-01] MEDS: FERROUS GLUCONATE 324 MG TAB PO SCH (09:07)
[2018-10-01] MEDS: GABAPENTIN 100 MG CAP PO SCH (09:07)
[2018-10-01] MEDS: amLODIPine 5 MG TAB PO SCH (09:07)
[2018-10-01] MEDS: LOSARTAN 25 MG TAB PO SCH (09:08)
[2018-10-01] MEDS: LACTOBACILLUS ACIDOPHILUS CAP (BACID) PO SCH ×4 (09:08→21:05)
[2018-10-01 14:16] VITALS: BP 140/61
[2018-10-01] MEDS: IRON SUCROSE 200 MG in NS 100 ML IV SCH (16:06)
[2018-10-01] MEDS: ENOXAPARIN 40 MG/0.4 ML SYRINGE (J1650) SC SCH (18:00)
--- NOTE | 2018-10-01 20:05 | IPNPDOC ---
Subjective Date Seen The patient was seen on 10/01/18. Subjective Chief Complaint/HPI The patient has pain in the leg, and no other complaints. Denies a fever, chills, nausea, vomiting, or diarrhea. Denies chest pain or palpitation. General: Denies: ROS Unobtainable, Chills, Night Sweats, Fatigue, Malaise, N ormal Appetite, Other Symptoms Constitutional: Denies: Chills, Fever, Malaise, Night Sweats, Weakness, Fatigue, Weight Loss, Lethargy, Other Eyes: Denies: Pain, Vision change, Conjunctivae inflammation, Eyelid inflammation, Redness, Other ENT: Denies: Head Aches, Ear Pain, Dysphagia, Sinus Congestion, Post Nasal Drip, Sore Throat, Epistaxis, Other Symptoms Skin: Denies: Rash, Lesions, Jaundice, Bruising, Itching, Dry, Breakdown, Nail Changes, Other Pulmonary: Denies: Dyspnea, Cough, Pleuritic Chest Pain, Other Symptoms Cardiovascular: Denies: Chest Pain, Palpitations, Orthopnea, Paroxysmal Noc. Dyspnea, Edema, Lt Headedness, Other Symptoms Gastrointestinal: Denies: Nausea, Vomiting, Abdominal Pain, Diarrhea, Constipation, Melena, Hematochezia, Other Symptoms Genitourinary: Denies: Dysuria, Frequency, Incontinence, Hematuria, Retention, Other Symptoms Hematologic: Denies: Bruising, Bleeding Excessively, Petecchia, Purpura, Enlarged Lymph Nodes, Other Hematologic Endocrine: Denies: Polydipsia, Polyphagia, Polyuria, Heat Intolerance, Cold Intolerance, Other Endocrine Sx Musculoskeletal: Reports: Leg Pain Neurological: Denies: Weakness, Numbness, Incoordination, Change in speech, Confusion, Seizures, Other Symptoms Psych: Denies: Mood Normal, Anxiety, Depression, Memory Issues, Thoughts of Self Harm, Anger, Thoughts of Harming Other, Other Psych Objective Physical Examination General Exam: Positive: Alert Eye Exam: Positive: PERRLA ENT Exam: Positive: Atraumatic Neck Exam: Positive: Supple Chest Exam: Positive: Clear to auscultation, Normal air movement Heart Exam: Positive: Rate Normal Telemetry: Positive: No significant arrhythmia Abdomen Exam: Positive: Normal bowel sounds Extremity Exam: Positive: Other (marked skin area) Skin Exam: Positive: Nl turgor and temperature Neuro Exam: Positive: Normal Speech Psych Exam: Positive: Mood NL Assessment /Plan Assessment # Recurrent Cellulitis of left LE due to medical noncompliane - He has a history of MRSA + wound cultures, on doxycycline started on 09/24/18. Clindamycin was started. - Per vascular surgery, pt will need b/l angiogram before discharge to follow up as outpatient. # Bilateral SFA occlusion/ Peripheral Arterial disease s/p stent in Left LE - on chronic plavix - vascular surgery consulted to evaluate circulation # HTN, DM2, HLD - resumed home meds - SSI w/hypoglycemic protocol # Peripheral neuropathy -c/w gabapentin # CKD 3 - baseline cr around 1, 1.6 on presentation - hold hctz for now # Left reducible hernia - outpt surgeon requested cardiology clearance prior to repair - no signs of incarceraton - reducible at bedside Plan/VTE VTE Prophylaxis Ordered?: Yes VS, I&O, 24H, Fishbone Vital Signs/I&O Vital Signs Date Time Temp Pulse Resp B/P (MAP) Pulse Ox O2 Delivery O2 Flow Rate FiO2 10/01/18 17:32 20 10/01/18 14:16 98.2 57 140/61 (87) 97 I&O- Last 24 Hours up to 6 AM 10/01/18 06:00 Intake Total 870 ml Output Total 2000 ml Balance -1130 ml Laboratory Data 24H LABS Laboratory Tests 2 09/30/18 20:25: Bedside Glucose (Misc Panel) 106 10/01/18 05:21: Immature Granulocyte % (Auto) 0.6, White Blood Count 9.3, Red Blood Count 3.21L, Hemoglobin 8.7L, Hematocrit 27.0L, Mean Corpuscular Volume 84.1, Mean Corpuscular Hemoglobin 27.1, Mean Corpuscular Hemoglobin Concent 32.2, Red Cell Distribution Width 14.0, Platelet Count 426, Neutrophils (%) (Auto) 69.7H, Lymphocytes (%) (Auto) 17.7L, Monocytes (%) (Auto) 9.0H, Eosinophils (%) (Auto) 2.0, Basophils (%) (Auto) 1.0, Neutrophils # (Auto) 6.5, Lymphocytes # (Auto) 1.6, Monocytes # (Auto) 0.8, Eosinophils # (Auto) 0.2, Basophils # (Auto) 0.1, Nucleated Red Blood Cells % (auto) 0.0, Blood Urea Nitrogen 13, Creatinine 1.14, Sodium Level 139, Potassium Level 4.0, Chloride Level 106, Carbon Dioxide Level 26, Anion Gap 7L, Glomerular Filtration Rate > 60.0, Calcium Level 8.0L, Phosphorus Level 3.8, Albumin 1.8L 10/01/18 11:39: Bedside Glucose (Misc Panel) 190H 10/01/18 16:57: Bedside Glucose (Misc Panel) 127H CBC/BMP Laboratory Tests 10/01/18 05:21 Red Blood Count 3.21 L, Mean Corpuscular Volume 84.1, Mean Corpuscular Hemoglobin 27.1, Mean Corpuscular Hemoglobin Concent 32.2, Red Cell Distribution Width 14.0, Neutrophils (%) (Auto) 69.7 H, Lymphocytes (%) (Auto) 17.7 L, Monocytes (%) (Auto) 9.0 H, Eosinophils (%) (Auto) 2.0, Basophils (%) (Auto) 1.0, Neutrophils # (Auto) 6.5, Lymphocytes # (Auto) 1.6, Monocytes # (Auto) 0.8, Eosinophils # (Auto) 0.2, Basophils # (Auto) 0.1, Anion Gap 7 L Microbiology Microbiology 09/24/18 Blood Culture - Final, Complete NO GROWTH AFTER 5 DAYS 09/24/18 Blood Culture - Final, Complete NO GROWTH AFTER 5 DAYS 09/24/18 MRSA Screen - Final, Complete 09/24/18 Wound Culture - Final, Complete Staphylococcus Aureus Streptococcus Pyogenes KAMLA Durham MD Oct 01, 2018 20:05
--- NOTE | 2018-10-01 20:43 | IPN ---
DATE: 10/01/2018 SUBJECTIVE: The patient was seen and examined the bedside today morning. The patient's blood pressure is controlled. His renal function is stable. Creatinine is at 1.1. Hemoglobin is improving. He denies any active complaints. OBJECTIVE: Vital signs: Temperature is 98.2 degrees Fahrenheit, blood pressure 140/61, pulse is 57, respiratory of 16, saturating 97% on room air. Intake and output: Urine output recorded is 450 mL yesterday, 2.5 liters so far today since overnight. Weight in the bed scale is not available. PHYSICAL EXAMINATION GENERAL: The patient is awake, alert, oriented times three, lying in bed in no apparent distress. HEAD AND NECK: Extraocular muscles intact. Pupils equally round and reactive to light. Mucous membranes are moist. Neck is supple. There is no jugular venous distention (JVD). CARDIOVASCULAR: S1, S2, regular rate. Trace edema of the left lower extremity. RESPIRATORY: Chest is clear to auscultation bilaterally. Bilateral equal air entry. No rales or rhonchi. ABDOMEN: Soft. Positive bowel sounds. Nontender. No organomegaly. MUSCULOSKELETAL: Bilateral feet have a dressing. Mild tenderness of the left foot on palpation. CENTRAL NERVOUS SYSTEM: No focal deficit. Power is 5/5 in bilateral upper extremities. LABORATORY REVIEW: CBC showed WBC of 9.3, hemoglobin is 8.7, platelets are 426. BMP showed sodium 139, potassium 4, chloride 106, bicarbonate 26, BUN 13, creatinine is 1.14, phosphorus is 3.8. CURRENT INPATIENT MEDICATIONS: The patient medications were all reviewed by me. He continues to be on intravenous (IV) Venofer every 48 hours. He continues to be on IV clindamycin. There is no other change in the medications today as compared with yesterday. ASSESSMENT AND PLAN: 1. Chronic kidney disease, stage III. Patient's renal function is stable. He is tolerating the angiotensin receptor yves. Continue the current medications. 2. Hypertension. Continue current dose of amlodipine and losartan. If blood pressure stays above 140, then losartan dose can be increased to 50 mg after 3 days. 3. Iron deficiency anemia. The patient is getting IV Venofer. Hemoglobin level is improving. 4. Left foot cellulitis. The patient is getting IV clindamycin, and it is significantly clinically better. The patient's renal function is stable. His blood pressure is optimized. Anemia is improving. Nephrology service is going to sign off at this moment. Please call nephrology service for any help in the management of this patient during this hospitalization.
[2018-10-01 22:00] VITALS: BP 142/61
[2018-10-02] VITALS (7 sets, daily range): BP systolic 134–170; BP diastolic 52–67
[2018-10-02] MEDS: PERCOCET 5MG/325MG TAB PO PRN ×2 (03:06→09:20)
[2018-10-02] MEDS: CLINDAMYCIN 600 MG in APPROPRIATE DILUENT 1 EA IV SCH ×2 (05:08→18:47)
[2018-10-02 07:30] LABS: HEMATOCRIT 26.9 % (42.0-52.0); HEMOGLOBIN 8.6 g/dl (13.5-17.5); MEAN CORPUSCULAR HEMOGLOBIN 27.4 pg (27.0-33.0); MEAN CORPUSCULAR VOLUME 85.7 fl (80.0-96.0); PLATELET COUNT, AUTOMATED 465 10^3/uL (150-450); RED BLOOD COUNT 3.14 10^6/uL (4.30-6.10); WHITE BLOOD COUNT 7.5 10^3/uL (4.0-10.0)
[2018-10-02] MEDS: HumaLOG INSULIN (NovoLOG) PER UNIT SC SCH ×4 (07:30→21:00)
[2018-10-02 07:56] LABS: ALBUMIN 1.7 GM/DL (3.2-5.2); BILIRUBIN,TOTAL 0.2 MG/DL (0.2-1.0); CALCIUM LEVEL 8.4 MG/DL (8.8-10.2); CREATININE FOR GFR 1.48 MG/DL (0.70-1.30); GLOMERULAR FILTRATION RATE 50.3 (>49); POTASSIUM SERUM 4.2 MEQ/L (3.5-5.1); TOTAL PROTEIN 6.9 GM/DL (6.4-8.2)
[2018-10-02] MEDS ORDERED: diphenhydrAMINE INJ 50MG/ML VIAL (J1200) As Ordered ONE (07:59)
[2018-10-02] MEDS ORDERED: BUPIVACAINE HCL 0.5% 10 ML VIAL As Ordered ONE (07:59)
[2018-10-02] MEDS ORDERED: fentaNYL 100 MCG/2 ML INJECTION (J3010) As Ordered ONE (07:59)
[2018-10-02] MEDS ORDERED: MIDAZOLAM INJ 2 MG/2 ML VIAL (J2250) As Ordered ONE (08:00)
[2018-10-02] MEDS ORDERED: LIDOCAINE 2% MDV 20 ML VIAL As Ordered ONE (08:00)
[2018-10-02] MEDS ORDERED: HEPARIN 1,000 UNITS/ML 10ML VIAL (FOR RADIOLOGY& DIALYSIS ONLY) As Ordered ONE (08:00)
[2018-10-02] MEDS ORDERED: ISOVUE-300 61% 50ML VIAL (Q9967) As Ordered ONE (08:01)
[2018-10-02] MEDS: LEVEMIR (INSULIN DETEMIR) 1 UNITS/0.01ML SC SCH ×2 (09:00→21:31)
[2018-10-02] MEDS: LACTOBACILLUS ACIDOPHILUS CAP (BACID) PO SCH ×4 (09:15→21:30)
[2018-10-02] MEDS: CLOPIDOGREL 75 MG TAB PO SCH (09:15)
[2018-10-02] MEDS: OMEPRAZOLE 20 MG CAP PO SCH (09:15)
[2018-10-02] MEDS: SIMVASTATIN 40 MG TAB PO SCH (09:15)
[2018-10-02] MEDS: FERROUS GLUCONATE 324 MG TAB PO SCH (09:15)
[2018-10-02] MEDS: GABAPENTIN 100 MG CAP PO SCH (09:16)
[2018-10-02] MEDS: LOSARTAN 25 MG TAB PO SCH (09:16)
[2018-10-02] MEDS: amLODIPine 5 MG TAB PO SCH (09:17)
[2018-10-02] MEDS ORDERED: CLIN300C5 PO (15:11)
[2018-10-02] MEDS ORDERED: PERCOCET PO (15:11)
--- NOTE | 2018-10-02 17:07 | IPNPDOC ---
Subjective Date Seen The patient was seen on 10/02/18. Subjective Chief Complaint/HPI Pain has improved. He does not have any complaints. He denies a fever, chills, nausea, vomiting, or diarrhea. General: Denies: ROS Unobtainable, Chills, Night Sweats, Fatigue, Malaise, Normal Appetite, Other Symptoms Constitutional: Denies: Chills, Fever, Malaise, Night Sweats, Weakness, Fatigue, Weight Loss, Lethargy, Other Eyes: Denies: Pain, Vision change, Conjunctivae inflammation, Eyelid inflammation, Redness, Other ENT: Denies: Head Aches, Ear Pain, Dysphagia, Sinus Congestion, Post Nasal Drip, Sore Throat, Epistaxis, Other Symptoms Skin: Denies: Rash, Lesions, Jaundice, Bruising, Itching, Dry, Breakdown, Nail Changes, Other Pulmonary: Denies: Dyspnea, Cough, Pleuritic Chest Pain, Other Symptoms Cardiovascular: Denies: Chest Pain, Palpitations, Orthopnea, Paroxysmal Noc. Dyspnea, Edema, Lt Headedness, Other Symptoms Gastrointestinal: Denies: Nausea, Vomiting, Abdominal Pain, Diarrhea, Constipation, Melena, Hematochezia, Other Symptoms Genitourinary: Denies: Dysuria, Frequency, Incontinence, Hematuria, Retention, Other Symptoms Hematologic: Denies: Bruising, Bleeding Excessively, Petecchia, Purpura, Enl arged Lymph Nodes, Other Hematologic Endocrine: Denies: Polydipsia, Polyphagia, Polyuria, Heat Intolerance, Cold Intolerance, Other Endocrine Sx Musculoskeletal: Denies: Neck Pain, Back Pain, Shoulder Pain, Arm Pain, Hand Pain, Leg Pain, Foot Pain, Joint Pain, Muscle Pain, Spasms, Other Symptoms Neurological: Denies: Weakness, Numbness, Incoordination, Change in speech, Confusion, Seizures, Other Symptoms Psych: Denies: Mood Normal, Anxiety, Depression, Memory Issues, Thoughts of Self Harm, Anger, Thoughts of Harming Other, Other Psych Objective Physical Examination General Exam: Positive: Alert Eye Exam: Positive: PERRLA ENT Exam: Positive: Atraumatic Neck Exam: Positive: Supple Chest Exam: Positive: Clear to auscultation, Normal air movement Heart Exam: Positive: Rate Normal Telemetry: Positive: No significant arrhythmia Abdomen Exam: Positive: Normal bowel sounds Extremity Exam: Positive: Other (marked skin area and toe eschar) Skin Exam: Positive: Nl turgor and temperature Neuro Exam: Positive: Normal Speech Psych Exam: Positive: Mood NL Assessment /Plan Assessment # Recurrent Cellulitis of left LE due to medical noncompliane - He has a history of MRSA + wound cultures, on doxycycline started on 09/24/18. Clindamycin was started. Continue clindamycin to finish 7 day course. - The patient had angiogram today. Will monitor any symptoms related to complication. # Bilateral SFA occlusion/ Peripheral Arterial disease s/p stent in Left LE - on chronic plavix - vascular surgery consulted to evaluate circulation # HTN, DM2, HLD - resumed home meds - SSI w/hypoglycemic protocol # Peripheral neuropathy -c/w gabapentin # CKD 3 - baseline cr around 1, 1.6 on presentation - hold hctz for now # Left reducible hernia - outpt surgeon requested cardiology clearance prior to repair - no signs of incarceraton - reducible at bedside Plan/VTE VTE Prophylaxis Ordered?: Yes VS, I&O, 24H, Fishbone Vital Signs/I&O Vital Signs Date Time Temp Pulse Resp B/P (MAP) Pulse Ox O2 Delivery O2 Flow Rate FiO2 10/02/18 16:17 97.9 61 20 167/65 (99) 96 I&O- Last 24 Hours up to 6 AM 10/02/18 06:00 Intake Total 530 ml Output Total 1400 ml Balance -870 ml Laboratory Data 24H LABS Laboratory Tests 2 10/01/18 20:16: Bedside Glucose (Misc Panel) 168H 10/02/18 05:35: Bedside Glucose (Misc Panel) 174H 10/02/18 06:59: Nucleated Red Blood Cells % (auto) 0.0, Anion Gap 6L, Glomerular Filtration Rate 50.3, Blood Urea Nitrogen 15, Creatinine 1.48H, Sodium Level 139, Potassium Level 4.2, Chloride Level 107, Carbon Dioxide Level 26, Calcium Level 8.4L, Aspartate Amino Transf (AST/SGOT) 13, Alanine Aminotransferase (ALT/SGPT) 8L, Alkaline Phosphatase 79, Total Bilirubin 0.2, Total Protein 6.9, Albumin 1.7L, Albumin/Globulin Ratio 0.33L 10/02/18 16:17: Bedside Glucose (Misc Panel) 141H CBC/BMP Laboratory Tests 10/02/18 06:59 Red Blood Count 3.14 L, Mean Corpuscular Volume 85.7, Mean Corpuscular Hemoglob in 27.4, Mean Corpuscular Hemoglobin Concent 32.0, Red Cell Distribution Width 14.2, Calcium Level 8.4 L, Aspartate Amino Transf (AST/SGOT) 13, Alanine Aminotransferase (ALT/SGPT) 8 L, Alkaline Phosphatase 79, Total Bilirubin 0.2, Total Protein 6.9, Albumin 1.7 L Microbiology Microbiology 09/24/18 Blood Culture - Final, Complete NO GROWTH AFTER 5 DAYS 09/24/18 Blood Culture - Final, Complete NO GROWTH AFTER 5 DAYS 09/24/18 MRSA Screen - Final, Complete 09/24/18 Wound Culture - Final, Complete Staphylococcus Aureus Streptococcus Pyogenes KAMLA Durham MD Oct 02, 2018 17:07
[2018-10-02] MEDS ORDERED: NS 1,000 ML IV SCH (18:45)
[2018-10-02] MEDS: ENOXAPARIN 40 MG/0.4 ML SYRINGE (J1650) SC SCH (18:48)
[2018-10-03] MEDS: CLINDAMYCIN 600 MG in APPROPRIATE DILUENT 1 EA IV SCH ×2 (00:16→05:38)
[2018-10-03 02:00] VITALS: BP 139/48
[2018-10-03 06:00] VITALS: BP 151/56
[2018-10-03 07:20] LABS: HEMATOCRIT 28.6 % (42.0-52.0); HEMOGLOBIN 9.4 g/dl (13.5-17.5); MEAN CORPUSCULAR HEMOGLOBIN 28.7 pg (27.0-33.0); MEAN CORPUSCULAR HGB CONC 32.9 g/dl (32.0-36.5); MEAN CORPUSCULAR VOLUME 87.2 fl (80.0-96.0); RED BLOOD COUNT 3.28 10^6/uL (4.30-6.10); WHITE BLOOD COUNT 9.8 10^3/uL (4.0-10.0)
[2018-10-03 07:28] LABS: PLATELET COUNT, AUTOMATED 585 10^3/uL (150-450)
[2018-10-03] MEDS: HumaLOG INSULIN (NovoLOG) PER UNIT SC SCH (07:30)
[2018-10-03 07:56] LABS: ALBUMIN 1.8 GM/DL (3.2-5.2); ALT/SGPT 8 U/L (12-78); BILIRUBIN,TOTAL 0.2 MG/DL (0.2-1.0); BLOOD UREA NITROGEN 12 MG/DL (7-18); CALCIUM LEVEL 8.3 MG/DL (8.8-10.2); CARBON DIOXIDE LEVEL 26 MEQ/L (21-32); CHLORIDE LEVEL 107 MEQ/L (98-107); CREATININE FOR GFR 1.19 MG/DL (0.70-1.30); GLOMERULAR FILTRATION RATE > 60.0 (>49); GLUCOSE, FASTING 57 MG/DL (70-100); SODIUM LEVEL 139 MEQ/L (136-145); TOTAL PROTEIN 7.5 GM/DL (6.4-8.2)
[2018-10-03] MEDS: LACTOBACILLUS ACIDOPHILUS CAP (BACID) PO SCH (08:54)
[2018-10-03] MEDS: OMEPRAZOLE 20 MG CAP PO SCH (08:54)
[2018-10-03] MEDS: SIMVASTATIN 40 MG TAB PO SCH (08:54)
[2018-10-03] MEDS: GABAPENTIN 100 MG CAP PO SCH (08:54)
[2018-10-03 08:55] VITALS: BP 151/56
[2018-10-03] MEDS: FERROUS GLUCONATE 324 MG TAB PO SCH (08:55)
[2018-10-03] MEDS: amLODIPine 5 MG TAB PO SCH (08:55)
[2018-10-03] MEDS: CLOPIDOGREL 75 MG TAB PO SCH (08:55)
[2018-10-03] MEDS: PERCOCET 5MG/325MG TAB PO PRN (08:56)
[2018-10-03] MEDS: LEVEMIR (INSULIN DETEMIR) 1 UNITS/0.01ML SC SCH (08:58)
[2018-10-03] MEDS ORDERED: LOSARTAN 50 MG TAB PO SCH (09:00)
--- NOTE | 2018-10-03 09:11 | IPNPDOC ---
Date Seen The patient was seen on 10/03/18. Progress Note Vascular Surgery Dr Pena. REASON FOR CONSULTATION: Left foot wound HPI: 67 y/o M with peripheral arterial disease and stent in LLE,on chronic plavix. 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 He had worsening erythema involving the dorsum of the left foot radiating to his pearce with tenderness, warmth, and swelling, and was sent to the ER for IV antibiotics. S/P debridement of Lt 2nd toes 09/24/[address] Anguiano. Vascular surgery consulted related to non healing foot wounds now S/P Rt and Lt arterial angiograms. 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 No acute distress. Alert and oriented x 3. HEENT: Normocephalic, atraumatic. Moist mucous membranes. CHEST: Regular rate and rhythm, +S1, +S2 LUNGS: Clear to auscultation bilaterally. No wheezes, rales, or rhonchi. ABD: Round, soft, non-tender, non-distended. EXT: LLE erythema appears decreased related to areas of demarcation. Left foot wound is bandaged. Pulses are palpable Rt DP/PT. SKIN: No rashes. NEURO: Alert and oriented x 3. No focal deficits appreciated. A&P: 1. B/L Foot wounds. S/P debridement of Lt foot as per Dr Anguiano 09/24/18. S/P LLE angiogram 09/26/[address] Pena. left superficial femoral artery angioplasty and stenting with a 7 x 120 Shannon drug-eluting stent, left popliteal artery angioplasty and stenting with a 7 x 120 [place] drug-eluting stent. S/P RLE angiogram 10/02/[address] Pena report not yet available however the pt did have SFA/Pop stent placement. SCr 1.19 this AM. 2. Cellulitis LLE. mgmt as per primary team. 3. PVD/ h/o RLE/LLE stent. Plavix 4. CKD. nephrology consulted. Monitor renal function. DVT prophylaxis. Lovenox. VS, I&O, 24H, Fishbone Vital Signs/I&O Vital Signs Date Time Temp Pulse Resp B/P (MAP) Pulse Ox O2 Delivery O2 Flow Rate FiO2 10/03/18 08:56 16 10/03/18 08:55 151/56 10/03/18 08:55 67 10/03/18 06:00 99.1 96 I&O- Last 24 Hours up to 6 AM 10/03/18 06:00 Intake Total 1630 ml Output Total 1750 ml Balance -120 ml Laboratory Data 24H LABS Laboratory Tests 2 10/02/18 16:17: Bedside Glucose (Misc Panel) 141H 10/02/18 20:07: Bedside Glucose (Misc Panel) 145H 10/03/18 06:32: Nucleated Red Blood Cells % (auto) 0.0, Anion Gap 6L, Glomerular Filtration Rate > 60.0, Blood Urea Nitrogen 12, Creatinine 1.19, Sodium Level 139, Potassium Level 4.0, Chloride Level 107, Carbon Dioxide Level 26, Calcium Level 8.3L, Aspartate Amino Transf (AST/SGOT) 15, Alanine Aminotransferase (ALT/SGPT) 8L, Alkaline Phosphatase 83, Total Bilirubin 0.2, Total Protein 7.5, Albumin 1.8L, Albumin/Globulin Ratio 0.32L 10/03/18 06:52: Bedside Glucose (Misc Panel) 58L 10/03/18 07:57: Bedside Glucose (Misc Panel) 103 CBC/BMP Laboratory Tests 10/03/18 06:32 Red Blood Count 3.28 L, Mean Corpuscular Volume 87.2, Mean Corpuscular Hemoglobin 28.7, Mean Corpuscular Hemoglobin Concent 32.9, Red Cell Distribution Width 14.4, Calcium Level 8.3 L, Aspartate Amino Transf (AST/SGOT) 15, Alanine Aminotransferase (ALT/SGPT) 8 L, Alkaline Phosphatase 83, Total Bilirubin 0.2, Total Protein 7.5, Albumin 1.8 L Microbiology Microbiology 09/24/18 Blood Culture - Final, Complete NO GROWTH AFTER 5 DAYS 09/24/18 Blood Culture - Final, Complete NO GROWTH AFTER 5 DAYS 09/24/18 MRSA Screen - Final, Complete 09/24/18 Wound Culture - Final, Complete Staphylococcus Aureus Streptococcus Pyogenes Mariana Gonzalez Oct 03, 2018 09:11
[2018-10-03] MEDS ORDERED: CLIN150C14 PO (10:12)
[2018-10-03] MEDS ORDERED: PROBCAP14 PO (10:12)
--- NOTE | 2018-10-03 11:52 | DS.PDOC ---
Discharge Summary General Date of Admission Sep 24, 2018 at 14:34 Date of Discharge 10/03/2018 Discharge Summary ADMITTING DIAGNOSES: 1. cellulitis of lower extremities DISCHARGE DIAGNOSES: 1. cellulitis of lower extremities COMPLICATIONS/CHIEF COMPLAINT: Cellulitis Left Foot. 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 He had worsening erythema involving the dorsum of the left foot radiating to his pearce with tenderness, warmth, and swelling, prompting him to be sent to the ER for IV antibiotics. Pt denies any fevers, chills. He admits to increasing pain with ambulation, swelling, and minimal serous discharge from the ulcer on the left 2nd toe. He has been [facility] and was discharged by Dr. Syed as his right 2nd-5th toes auto-amputated. He denies fever, chills, night sweats, n/v, abdominal pain, diarrhea, pain with urination, CP or SOB, no recent traumatic events to the left lower leg. HOSPITAL COURSE: The patient is s/p debridement of Lt foot as per Dr Anguiano 09/24/18. S/P LLE angiogram 09/26/[address] Pena. Left superficial femoral artery angioplasty and stenting with a 7 x 120 Shannon drug-eluting stent, left popliteal artery angioplasty and stenting with a 7 x 120 Shannon drug-eluting stent. S/P RLE angiogram 10/02/[address] Pena with SFA/Pop stent placement. For the recurrent cellulitis of left LE due to medical noncompliane, the patient has received clindamycin IV for 5 days. He will need to finish PO clindamycin for 2 more days to complete 7 day course abx. For HTN, DM2, HLD, the patient continued home medications. For peripheral neuropathy, he received gabapentin. For left reducible hernia, outpt surgeon requested cardiology clearance prior to repair. No signs of incarceraton. It is reducible at bedside. DISCHARGE MEDICATIONS: Please see below. ALLERGIES: Please see below. PHYSICAL EXAMINATION ON DISCHARGE: VITAL SIGNS: Please see below. Eye Exam: Positive: PERRLA ENT Exam: Positive: Atraumatic Neck Exam: Positive: Supple Chest Exam: Positive: Clear to auscultation, Normal air movement Heart Exam: Positive: Rate Normal Telemetry: Positive: No significant arrhythmia Abdomen Exam: Positive: Normal bowel sounds Extremity Exam: Positive: Other (marked skin area and toe eschar) Skin Exam: Positive: Nl turgor and temperature Neuro Exam: Positive: Normal Speech Psych Exam: Positive: Mood NL LABORATORY DATA: Please see below. DISCHARGE INSTRUCTIONS: 1. Follow up with vascular surgery and primary care as an outpatient. Vital Signs/I&Os Vital Signs Date Time Temp Pulse Resp B/P (MAP) Pulse Ox O2 Delivery O2 Flow Rate FiO2 10/03/18 09:26 16 10/03/18 08:55 151/56 10/03/18 08:55 67 10/03/18 06:00 99.1 96 I&O- Last 24 Hours up to 6 AM 10/03/18 06:00 Intake Total 1630 ml Output Total 1750 ml Balance -120 ml Laboratory Data Labs 24H Laboratory Tests 2 10/02/18 16:17: Bedside Glucose (Misc Panel) 141H 10/02/18 20:07: Bedside Glucose (Misc Panel) 145H 10/03/18 06:32: Nucleated Red Blood Cells % (auto) 0.0, Anion Gap 6L, Glomerular Filtration Rate > 60.0, Blood Urea Nitrogen 12, Creatinine 1.19, Sodium Level 139, Potassium Level 4.0, Chloride Level 107, Carbon Dioxide Level 26, Calcium Level 8.3L, Aspartate Amino Transf (AST/SGOT) 15, Alanine Aminotransferase (ALT/SGPT) 8L, Alkaline Phosphatase 83, Total Bilirubin 0.2, Total Protein 7.5, Albumin 1.8L, Albumin/Globulin Ratio 0.32L 10/03/18 06:52: Bedside Glucose (Misc Panel) 58L 10/03/18 07:57: Bedside Glucose (Misc Panel) 103 CBC/BMP Laboratory Tests 10/03/18 06:32 Red Blood Count 3.28 L, Mean Corpuscular Volume 87.2, Mean Corpuscular Hemoglobin 28.7, Mean Corpuscular Hemoglobin Concent 32.9, Red Cell Distribution Width 14.4, Calcium Level 8.3 L, Aspartate Amino Transf (AST/SGOT) 15, Alanine Aminotransferase (ALT/SGPT) 8 L, Alkaline Phosphatase 83, Total Bilirubin 0.2, Total Protein 7.5, Albumin 1.8 L FSBS Laboratory Tests Test 10/02/18 16:17 10/02/18 20:07 10/03/18 06:52 10/03/18 07:57 Range/Units Bedside Glucose (Misc Panel) 141 145 58 103 80-115 MG/DL Microbiology Microbiology 09/24/18 Blood Culture - Final, Complete NO GROWTH AFTER 5 DAYS 09/24/18 Blood Culture - Final, Complete NO GROWTH AFTER 5 DAYS 09/24/18 MRSA Screen - Final, Complete 09/24/18 Wound Culture - Final, Complete Staphylococcus Aureus Streptococcus Pyogenes Grp A Discharge Medications Scheduled Amlodipine Besylate (Amlodipine Besylate) 10 Mg Tablet, 10 MG PO DAILY, (Reported) Clindamycin Hcl (Clindamycin HCl) 150 Mg Capsule, 600 MG PO QID Clopidogrel Bisulfate (Clopidogrel) 75 Mg Tablet, 75 MG PO DAILY, (Reported) Gabapentin (Gabapentin) 100 Mg Capsule, 100 MG PO DAILY, (Reported) RX IS FOR BID, BUT PATIENT STATES HE ONLY TAKES DAILY Insulin Detemir (Levemir) 100 Unit/1 Ml Vial, 40 UNITS SC QAM, (Reported) Insulin Detemir (Levemir) 100 Unit/1 Ml Vial, 70 UNITS SC QHS, (Reported) Lactobacillus Acidophilus (Probiotic) 1 Each Capsule, 1 CAP PO TID Linagliptin (Tradjenta) 5 Mg Tablet, 5 MG PO DAILY, (Reported) Lisinopril (Lisinopril) 40 Mg Tablet, 40 MG PO DAILY, (Reported) Metformin HCl (Metformin HCl) 1,000 Mg Tablet, 1,000 MG PO DAILY, (Reported) RX IS FOR BID, PATIENT STATES HE ONLY TAKES DAILY Omeprazole (Omeprazole) 20 Mg Capsule.dr, 20 MG PO DAILY, (Reported) Simvastatin (Zocor) 80 Mg Tablet, 80 MG PO DAILY, (Reported) Scheduled PRN Naproxen (Naproxen) 500 Mg Tablet.dr, 500 MG PO BID PRN for PAIN, (Reported) Oxycodone/Acetaminophen (Oxycodone-Acetaminophen 5-325) 1 Each Tablet, 1 TAB PO Q6HP PRN for MILD/MODERATE PAIN (PS 1-7) Allergies Coded Allergies: No Known Allergies (Verified , 12/16/08) KAMLA GRAVES MD Oct 03, 2018 11:52
--- NOTE | 2018-10-23 07:57 | REPIR ---
DATE OF PROCEDURE: 10/02/2018 ATTENDING SURGEON: Dr. Una Pena [employer] TEAM LEADER: Karen Aldrich PREOPERATIVE DIAGNOSIS: Bilateral lower extremity foot ulcers. POSTOPERATIVE DIAGNOSIS: Bilateral lower extremity foot ulcers. PROCEDURE: Left common femoral arterial cannulation, selective right common femoral artery catheter placement with angiogram, right popliteal artery angioplasty and stent, right superficial femoral artery angioplasty and stent, Mynx closure of the left common femoral arteriotomy. INDICATION: The patient is a 67-year-old male with nonhealing ulcers in both lower extremities with the right being worse than the left. The patient will undergo a right lower extremity angiogram. ANESTHESIA: Was local with 10 mL of 2% lidocaine mixed with 0.5% Marcaine. FLUORO TIME: 4.5 minutes. CONTRAST: 4 mL of Isovue-300. HEPARIN: 7000 units. PROCEDURE: The patient was taken the angiography suite, placed supine on the angiography room table and then prepped and draped in a standard surgical fashion. The left common femoral artery was cannulated, the catheter advanced up and over the bifurcation iliac arteries into the right common femoral artery and an angiogram performed. This showed severe stenosis in the right popliteal and superficial femoral artery. The right popliteal artery underwent angioplasty and stenting with a 7 x 120 Shannon stent postdilated with 6 x 200 balloon. The right superficial femoral artery underwent angioplasty and stenting with 7 x 120 Shannon stent postdilated a 6 x 200 balloon. Followup angiography showed resolution of the stenosis with good flow. The Mynx closure device used to close the arteriotomy in the left common femoral artery with an additional 10 minutes adjunctive pressure applied for hemostasis. Dressings were then applied. The patient tolerated procedure well. All instruments, sponge, and needle counts were correct at the end the case. There were no complications. Dr. Pena was present for and directed the entire case. The patient was transferred to [facility] area and subsequently discharged in stable condition.
== END 2018-10-03 12:00 | disposition home or self-care (01) | DRG 581 ==
LOC: EDBD 11:23 → M ED 11:23 → M ED INP 14:34 → M MS5PR 17:10
PROVIDERS: ADMIT General Practice; ATTEND Internal Medicine
PROC: 047L34Z Dilation of Left Femoral Artery with Drug-eluting Intraluminal Device, Percutaneous Approach (ICD-10-PCS; principal; 2018-09-26)
PROC: 047N34Z Dilation of Left Popliteal Artery with Drug-eluting Intraluminal Device, Percutaneous Approach (ICD-10-PCS; 2018-09-26)
PROC: B41G1ZZ Fluoroscopy of Left Lower Extremity Arteries using Low Osmolar Contrast (ICD-10-PCS; 2018-09-26)
PROC: 047K34Z Dilation of Right Femoral Artery with Drug-eluting Intraluminal Device, Percutaneous Approach (ICD-10-PCS; 2018-10-02)
PROC: 047M34Z Dilation of Right Popliteal Artery with Drug-eluting Intraluminal Device, Percutaneous Approach (ICD-10-PCS; 2018-10-02)
PROC: B41F1ZZ Fluoroscopy of Right Lower Extremity Arteries using Low Osmolar Contrast (ICD-10-PCS; 2018-10-02)
DX: L03.116 Cellulitis of left lower limb (principal); N18.3 Chronic kidney disease, stage 3 (moderate); I12.9 Hypertensive chronic kidney disease with stage 1 through stage 4 chronic kidney disease, or unspecified chronic kidney disease; E11.319 Type 2 diabetes mellitus with unspecified diabetic retinopathy without macular edema; E11.21 Type 2 diabetes mellitus with diabetic nephropathy; H40.9 Unspecified glaucoma; E11.51 Type 2 diabetes mellitus with diabetic peripheral angiopathy without gangrene; E11.621 Type 2 diabetes mellitus with foot ulcer; Z79.899 Other long term (current) drug therapy; Z79.4 Long term (current) use of insulin; Z87.891 Personal history of nicotine dependence

== ENCOUNTER → 2019-01-14 | Outpatient (REF) | payer MEDICARE, OTHER ==
[~2019-01-14] MED LIST changes: +CLIN150C14 PO; +CLIN300C5 PO; +NAPR500T6 PO; +PERCOCET PO; +PROBCAP14 PO
[2019-01-14 13:11] LABS: APPEARANCE, URINE CLEAR (CLEAR); BACTERIA, URINE AUTO NEGATIVE (NEGATIVE); BILIRUBIN, URINE AUTO NEGATIVE (NEGATIVE); BLOOD, URINE BLOOD NEGATIVE (NEGATIVE); COLOR, URINE YELLOW (YELLOW); GLUCOSE, URINE (UA) AUTO 1+ mg/dL (NEGATIVE); KETONE, URINE AUTO NEGATIVE (NEGATIVE); LEUKOCYTE ESTERASE, URINE AUTO NEGATIVE (NEGATIVE); MUCUS, URINE SMALL (NEGATIVE); NITRITE, URINE AUTO NEGATIVE (NEGATIVE); PROTEIN, URINE AUTO 3+ mg/dL (NEGATIVE); RBC, URINE AUTO 1 /HPF (0-3); SPECIFIC GRAVITY URINE AUTO 1.022 (1.002-1.035); SQUAMOUS EPITHELIAL CELL UR AU 0 /HPF (0-6); UROBILINOGEN, URINE AUTO 0.2 mg/dL (0.0-2.0); WBC, URINE AUTO 6 /HPF (0-3)
[2019-01-14 13:16] LABS: BASO # 0.1 10^3/uL (0.0-0.2); BASO % 1.3 % (0.0-1.0); EOS # 0.2 10^3/uL (0.0-0.5); EOS % 3.7 % (0.0-3.0); HEMATOCRIT 39.5 % (42.0-52.0); HEMOGLOBIN 12.4 g/dl (13.5-17.5); LYMPH # 1.6 10^3/uL (1.5-5.0); LYMPH % 26.6 % (24.0-44.0); MEAN CORPUSCULAR HEMOGLOBIN 27.6 pg (27.0-33.0); MEAN CORPUSCULAR HGB CONC 31.4 g/dl (32.0-36.5); MONO # 0.5 10^3/uL (0.0-0.8); MONO % 7.7 % (0.0-5.0); NEUTROPHILS # 3.6 10^3/uL (1.5-8.5); NEUTROPHILS % 60.2 % (36.0-66.0); PLATELET COUNT, AUTOMATED 196 10^3/uL (150-450); RED BLOOD COUNT 4.49 10^6/uL (4.30-6.10)
[2019-01-14 13:57] LABS: ALBUMIN 2.6 GM/DL (3.2-5.2); ALT/SGPT 9 U/L (12-78); BILIRUBIN,TOTAL 0.4 MG/DL (0.2-1.0); BLOOD UREA NITROGEN 17 MG/DL (7-18); CALCIUM LEVEL 8.3 MG/DL (8.8-10.2); CARBON DIOXIDE LEVEL 26 MEQ/L (21-32); CHLORIDE LEVEL 109 MEQ/L (98-107); CHOLESTEROL LEVEL 149 MG/DL (<200); CHOLESTEROL RISK RATIO 4.656 (<5); CREATININE FOR GFR 1.24 MG/DL (0.70-1.30); FREE T4 1.23 NG/DL (0.76-1.46); GLOMERULAR FILTRATION RATE > 60.0 (>49); GLUCOSE, FASTING 257 MG/DL (70-100); HDL CHOLESTEROL 32 MG/DL (>40); LDL CHOLESTEROL 93 MG/DL (<100); NON-HDL-C 117 MG/DL; POTASSIUM SERUM 4.2 MEQ/L (3.5-5.1); SODIUM LEVEL 142 MEQ/L (136-145); TOTAL 25(OH) VITAMIN D 16.9 NG/ML (30.0-100.0); TOTAL PROTEIN 6.7 GM/DL (6.4-8.2); TRIGLYCERIDES LEVEL 119 MG/DL (<150)
[2019-01-14 14:30] LABS: MAU/CREAT RATIO 3625.7 MCG/MG (0.0-30.0)
[2019-01-14 14:34] LABS: HEMOGLOBIN A1c 8.2 %
== END ==
LOC: M LAB REF 12:11
PROVIDERS: ATTEND Family Medicine
DX: Z13.228 Encounter for screening for other metabolic disorders (principal); R60.9 Edema, unspecified; M54.5 Low back pain; Z12.5 Encounter for screening for malignant neoplasm of prostate; Z79.899 Other long term (current) drug therapy
CPT/HCPCS: 80053; 80061; 81001; 82043; 82306; 83036; 84439; 84443; 85025; G0103

== ENCOUNTER → 2019-01-23 | Outpatient (CLI) | payer MEDICARE, OTHER ==
--- NOTE | 2019-01-25 09:57 | ECGEPIP ---
[facility] Test Date: 2019-01-23 Pat Name: OLAF SHIELDS Department: Room: - Gender: Male Water Tender: PADMAJA : 1950 Requested By: JONEL Fonseca Order Number: [id number] Reading MD: Silvia Hackett Measurements Intervals [place] Rate: 66 P: 64 RI: 161 QRS: 70 QRSD: 114 T: 141 QT: 437 QTc: 461 Interpretive Statements SINUS RHYTHM LEFT VENTRICULAR HYPERTROPHY AND ST-T CHANGE STT ABNORMALITY IS NEW SINCE 02/08/17, CONSIDER ISCHEMIA Electronically Signed on 01-25-2019 9:56:55 EDT by Silvia Hackett
== END ==
LOC: M EKG 15:14
PROVIDERS: ATTEND Anesthesiology
DX: Z01.818 Encounter for other preprocedural examination (principal); I10 Essential (primary) hypertension; E78.00 Pure hypercholesterolemia, unspecified; E10.9 Type 1 diabetes mellitus without complications; R12 Heartburn; M19.90 Unspecified osteoarthritis, unspecified site; Z92.3 Personal history of irradiation

== ENCOUNTER → 2019-01-29 | Outpatient (CLI) | payer MEDICARE, OTHER ==
[~2019-01-29] VITALS: Ht 175.3 cm; Wt 88.0 kg
[~2019-01-29] MED LIST changes: +BUPIVACAINE HCL 0.25% 30 ML VIAL As Ordered ONE; +D5W 250ML BAG As Ordered ONE; +DEXTROSE 50% 50 ML SYRINGE As Ordered ONE; +DEXTROSE 50% 50 ML VIAL IV ONE; +LIDOCAINE 1% SDV INJ 30 ML VIAL As Ordered ONE; +LR 1,000 ML IV ONE; +ceFAZolin SOD 2 GM in IV 1 EA IV ONE
[2019-01-29 06:44] VITALS: BP 189/79
== END ==
LOC: M SDC 05:53 → EDSTATUS 07:30
PROVIDERS: ATTEND Surgery
DX: K40.90 Unilateral inguinal hernia, without obstruction or gangrene, not specified as recurrent (principal); Z53.8 Procedure and treatment not carried out for other reasons

== ENCOUNTER → 2019-02-11 | Outpatient (REF) | payer MEDICARE, OTHER ==
[~2019-02-11] MED LIST changes: -BUPIVACAINE HCL 0.25% 30 ML VIAL As Ordered ONE; -D5W 250ML BAG As Ordered ONE; -DEXTROSE 50% 50 ML SYRINGE As Ordered ONE; -DEXTROSE 50% 50 ML VIAL IV ONE; -LIDOCAINE 1% SDV INJ 30 ML VIAL As Ordered ONE; -LR 1,000 ML IV ONE; -ceFAZolin SOD 2 GM in IV 1 EA IV ONE
[2019-02-11 13:34] LABS: BACTERIA, URINE AUTO NEGATIVE (NEGATIVE); MUCUS, URINE SMALL (NEGATIVE); RBC, URINE AUTO 1 /HPF (0-3); SQUAMOUS EPITHELIAL CELL UR AU 0 /HPF (0-6); WBC, URINE AUTO 1 /HPF (0-3)
== END ==
LOC: M SMT 13:07
PROVIDERS: ATTEND Specialist
DX: Z85.51 Personal history of malignant neoplasm of bladder (principal); Z28.21 Immunization not carried out because of patient refusal; Z12.5 Encounter for screening for malignant neoplasm of prostate
CPT/HCPCS: 36415; 81015; 87086; 88108; G0103; G0463

== ENCOUNTER → 2019-02-11 | Outpatient (CLI) | payer MEDICARE, OTHER | LOC: M SMT 10:09 | PROVIDERS: ATTEND Specialist | DX: Z12.5 Encounter for screening for malignant neoplasm of prostate (principal); Z28.21 Immunization not carried out because of patient refusal | CPT/HCPCS: 36415; G0103 ==

== ENCOUNTER 2019-03-17 05:54 | Day surgery (SDC) | payer MEDICARE, OTHER ==
[~2019-03-17] VITALS: Ht 175.3 cm; Wt 87.1 kg
[2019-03-17] VITALS (8 sets, daily range): BP systolic 136–164; BP diastolic 58–72; O2SAT 94
[~2019-03-17 05:54] MED LIST changes: +OMEP-172 PO; -OMEP20CA4 PO
[2019-03-17] MEDS ORDERED: ceFAZolin SOD 2 GM in IV 1 EA IV ONE (06:00)
[2019-03-17] MEDS ORDERED: LIDOCAINE 1% MDV 20ML VIAL SQ PRN (06:00)
[2019-03-17] MEDS ORDERED: LR 1,000 ML IV ONE (06:00)
[2019-03-17] MEDS ORDERED: BUPIVACAINE HCL 0.25% 10 ML VIAL As Ordered ONE (06:59)
[2019-03-17] MEDS ORDERED: LIDOCAINE 1% SDV INJ 30 ML VIAL As Ordered ONE (06:59)
[2019-03-17] MEDS ORDERED: BUPIVACAINE HCL 0.25% 30 ML VIAL As Ordered ONE (07:00)
[2019-03-17] MEDS ORDERED: BUPIVACAINE LIPOSOME/PF 1.3% 20ML VIAL (13.3MG/ML)(EXPAREL)(C9290 PER1MG) As Ordered ONE (07:00)
[2019-03-17] MEDS ORDERED: LACRILUBE (AKWA TEARS) OPHTH OINT 3.5 GM As Ordered ONE (07:16)
[2019-03-17] MEDS ORDERED: MIDAZOLAM INJ 2 MG/2 ML VIAL (J2250) As Ordered ONE (07:17)
[2019-03-17] MEDS ORDERED: PROPOFOL 200 MG/20 ML VIAL As Ordered ONE (07:17)
[2019-03-17] MEDS ORDERED: LIDOCAINE 2% INJ 100 MG/5 ML SDV (FOR ANES.) As Ordered ONE (07:17)
[2019-03-17] MEDS ORDERED: ROCURONIUM BROMIDE 50 MG/5 ML VIAL As Ordered ONE (07:17)
[2019-03-17] MEDS ORDERED: dexameTHASONE 4 MG/ML 1ML VIAL (J1100) As Ordered ONE (07:18)
[2019-03-17] MEDS ORDERED: fentaNYL 100 MCG/2 ML INJECTION (J3010) As Ordered ONE ×2 (07:18→10:19)
[2019-03-17] MEDS ORDERED: ONDANSETRON 4MG/2ML VIAL (J2405) As Ordered ONE (07:18)
[2019-03-17] MEDS ORDERED: HumaLOG INSULIN (NovoLOG) PER UNIT As Ordered ONE ×2 (07:24→11:10)
[2019-03-17] MEDS ORDERED: HumaLOG INSULIN (NovoLOG) PER UNIT SC ONE ×3 (07:45→11:45)
[2019-03-17] MEDS ORDERED: ACETAMINOPHEN 1000MG 100ML IV BTL (OFIRMEV) (J0131 PER 10MG) As Ordered ONE (09:02)
[2019-03-17] MEDS ORDERED: SUGAMMADEX SODIUM 500 MG/5 ML VIAL (BRIDION) As Ordered ONE (09:21)
[2019-03-17] MEDS ORDERED: DEXTROSE 50% 50 ML SYRINGE IV PRN (11:00)
[2019-03-17] MEDS ORDERED: GLUCOSE 4 GM CHEW TABLET PO PRN (11:00)
[2019-03-17] MEDS ORDERED: KETOROLAC 30 MG/ML VIAL (J1885) IV PRN (11:00)
[2019-03-17] MEDS ORDERED: ONDANSETRON 4MG/2ML VIAL (J2405) IV PRN ×2 (11:00→11:45)
[2019-03-17] MEDS ORDERED: ACETAMINOPHEN TAB 650MG DOSE (2X325MG) PO PRN (11:00)
[2019-03-17] MEDS ORDERED: GLUCAGON FOR INJ 1 MG VIAL (J1610) SC PRN (11:00)
[2019-03-17] MEDS: fentaNYL 100 MCG/2 ML INJECTION (J3010) IV PRN ×4 (11:35→11:50)
[2019-03-17] MEDS ORDERED: LR 1,000 ML IV SCH (11:45)
[2019-03-17] MEDS ORDERED: MORPHINE 10 MG/ML 1ML VIAL (J2270) IV PRN (11:45)
[2019-03-17] MEDS ORDERED: PERCOCET 5MG/325MG TAB PO PRN (11:45)
--- NOTE | 2019-03-17 11:50 | ROOPDOC ---
[facility] Report Of Operation Report of Operation DATE OF PROCEDURE: 03/17/19 PREPROCEDURE DIAGNOSES: Recurrent left inguinal hernia. POSTPROCEDURE DIAGNOSES: Recurrent left inguinal hernia with a polypropylene plug adhered to both the vas deferens and testicular vessels. PROCEDURE: Robotic-assisted laparoscopic left inguinal hernia repair, removal of polypropylene plug. SURGEON: Jose L Vasquez MD POLICE COMMUNICATIONS OPERATOR: Jeannine Albrecht NP ANESTHESIA: Gen. anesthesia. ESTIMATED BLOOD LOSS: Approximately 10 mL. COMPLICATIONS: possible devascularization of left testicle REMARKS: . PROCEDURE NOTE: Patient is a recurrent left inguinal hernia previously had an open repair with polypropylene plug. He had an incarcerated sigmoid colon that was reduced back in the abdomen which was partially obstructing the sigmoid colon. The polypropylene plug is within the internal ring but did not obliterate the ring and he continues to have an enlarged indirect hernia defect partially and compressing the direct space also. The polypropylene plug is noted to be wound around the vas deferens as well as possibly the testicular vessels. DESCRIPTION OF PROCEDURE: Patient received 2 g of Ancef IV preoperatively for wound prophylaxis. Patient was brought to the operating room, placed supine on the operating table. Compression boots placed in both lower extremities for DVT prophylaxis. General endotracheal anesthesia started. A britt catheter placed without difficulty. His abdomen and groin/pelvic area then prepped and draped in the usual sterile fashion. We paused for a surgical timeout using both pre-incision safety checklist to verify correct patient, procedure site and additional clinical information prior to beginning the procedure Patient had a previous upper midline as well as in the infraumbilical transverse incision both from previous hernia repairs, 2 left groin incisions from the open inguinal hernia repair and penile implant. To avoid the potential scar from the midline incision I entered the abdomen starting with a Veress needle at the right upper abdominal subcostal area. Proper placement was confirmed with saline drop technique. CO2 insufflation started to pressure 15 mmHg. Using the same incision a 5 mm optical trocar was placed under direct v ision of laparoscope. The area underneath the insertion point was inspected for injury and none was found. On immediate entry there was a good amount of omental adhesions underneath both the upper midline incision and umbilical incision. I then inserted an 8 mm robotic trocar over the patient's left abdomen above the umbilicus and used this as my initial laparoscopic working port. The adhered omentum underneath the umbilicus and at the lower portion of the upper midline incision was lysed sharply with cautery. There were small scattered Russian cheese defects within these adhered omentum to the abdominal wall. After creating enough space for us to place our ports a 8 mm robotic trocar was placed at the midline roughly 3-4 cm above the umbilicus and another one over the left abdomen along the same line. Patient was then placed in a slight Trendelenburg position (8) and slightly turned towards the right side to retract bowels away from the left pelvic area. Immediately noted is the sigmoid colon going into the left inguinal hernia defect. The proximal colon to the hernia defect is dilated and the distal sigmoid colon coming out of the defect is decompressed consistent with partial obstruction which appears chronic. The da Kendal robot tower was then maneuvered in position and the trochars docked onto the robot. I used a 30 8 mm robotic laparoscopic camera with a forced bipolar forceps connected to bipolar cautery and electrocautery scissors connected to monopolar cautery. I had my autopsy assistant grab onto partly the colon epiploic appendage to help with the retraction. I then scrubbed in to control of the camera and robotic instruments at the surgeon's console. 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 I started by lysing sharply the lateral adhesions of the sigmoid colon. With my autopsy assistant grabbing part of the epiploic appendage and pulling outward I then circumferentially dissected around the opening in an attempt to free up the colon. Eventually with circumferential dissection, external abdominal/groin pressure and uncontrolled pulling from the inside I was able to reduce the colon which is healthy, with no signs of ischemia or injury during the reduction. The remaining attachments to the peritoneum on the internal opening was released to fully free the sigmoid colon. At this point then turned my attention to the hernia repair itself. The peritoneum was opened up about 7 cm above the superior edge of the fascial defect of the inguinal hernia starting at the medial umbilical ligament going in an arc-like fashion laterally towards the level of the anterior superior iliac spine. The peritoneal flap was carefully developed along this plane both medially towards the space of Retzius and laterally towards the space of Bogros. The internal opening itself is roughly about 4-5 cm. The superior lateral peritoneal edge of the hernia sac is quite thinned out due to the previous dissection of the sigmoid colon from this area and with the dissection towards through the peritoneum at this area. I continued working on developing the plane around the hernia sac. This was also quite scarred and inferiorly and medially where the previous polypropylene plug is located. I continued to develop the preperitoneal plane inferolaterally grabbing the edge of the peritoneum from the cord up sac to develop the space. I then proceeded medially identifying the vas deferens at this area as it crosses the femoral vein and parietalize this. I proceeded following this up and I could see that the vas deferens is adhered intimately and wrapped around the polypropylene plug. I left this in place for now and continue to develop the space of Retzius exposing the Antonio's ligament, pubic tubercle and the femoral space down to 2 cm beyond the pubic tubercle. Once this space is adequately developed a turned my attention back to the polypropylene plug. My autopsy assistant grab on the plug and races upwards as I dissected posteriorly and then circumferentially around carefully teasing the adhered structures which I can see is the vas deferens (or at some point I thought the genitofemoral nerve) and what seems to be the testicular vessels laterally which is also intimately adhered to the plug. I started medially first at the vas deferens and was able to get around this and lyse the tubular structure away from the plug. I then turned my attention laterally to the testicular vessels. The testis was free air from the previous dissection a free the plug inferiorly as well as superiorly with only thing holding it was the lateral attachments and the superior lateral attachments and what I could infer as the testicular vessels inferolaterally. I sharply divided around the vascular structures but as I was developing this plane and tugging on the plug, the whole structure detached from the inguinal canal. There seems to be only a thin tubular structure holding this up and what I thought was the testicular vessels seemed to blindly and somewhere at the plug. I fully sharply lysed the plug from what I thought were the testicular vessels and then search within the canal to look for the distal end of the testicular vessels. I could trace the vas d eferens but I could not definitely trace the testicular vessels distally as it goes through the inguinal canal. There seems to be a thin vascular structure on the lateral edge of the hernia sac which could be the testicular vessels. The structure that I thought was the testicular vessels seems to end abruptly and ends at the level of the inguinal ring. I did not see any distal structure that I could connect to that they may have inadvertently divided. At this point I gave our lemon picker urologist about the situation for his suggestions. He suggested observing the patient for signs of ischemic orchitis later on when he wakes up and at this point does not seem to think that he needed to explore the testicle itself given that it they have some collateral vascularizations. At this point the whole of the myopectineal orifices been exposed. There was no cord lipoma to speak of just the large opening of the inguinal ring. I measured this as 4 x 3 cm. I chose a Parietex Pro Pre K Lead Teacher self fixating mesh. I had my autopsy assistant trim the lateral edges of the mesh to approximate the patient's body habitus. This was folded with the center of the mesh marked for positioning. This was then delivered intra-abdominally through one of the trochars. In a controlled fashion this was positioned into the preperitoneal space with the medial side towards the pubic tubercle and the previously marked center of the mesh abutting the inferior epigastric vessels. The mesh was then carefully unfolded and positioned in place with adequate overlap around the internal ring to cover the hernia defect. The mesh has adequate coverage for the myopectineal orifice. The cluster was a good sized defect I secured the mesh to the Antonio's ligament and also superior medially to the transversalis with 20V LOC. There were no fixations at the triangle of doom or at the triangle of pain. After careful placement of the mesh, the peritoneal opening was then closed with a running suture of 2-0V LOC suture. As the hernia sac was long and redundant I incorporated the hernia sac into the closure of the peritoneum. I then surveyed the abdomen and pelvis for any signs of injury. The polypropylene plug was divided so we could remove this through the existing 8 mm trochars. Even with this divided it was difficult to pass through the trochars. Once satisfied I scrubbed back in. The polypropylene plug was retrieved with a long Annika forceps with slight enlargement of the fascial opening on the left side of the abdomen. The instruments were removed. The abdomen was deflated. All ports were removed. The fascial opening on the left side was closed with 0 Vicryl. The skin incisions were closed with 4-0 Monocryl in subcuticular fashion. The incisions were covered with Dermabond. The port sites were again infiltrated with local anesthesia. An ilioinguinal nerve block was also performed. Patient was promptly awakened, extubated and brought to the recovery room stable Count of sponges and instruments were verified correct. JOSE L VASQUEZ MD Mar 17, 2019 11:50
[2019-03-17] MEDS ORDERED: HumaLOG INSULIN (NovoLOG) PER UNIT SC SCH (12:00)
[2019-03-17] MEDS: GABAPENTIN 100 MG CAP PO SCH (13:26)
[2019-03-17] MEDS: LEVEMIR (INSULIN DETEMIR) 1 UNITS/0.01ML SC SCH (13:26)
[2019-03-17] MEDS: FUROSEMIDE 40 MG TAB PO SCH (13:26)
[2019-03-17] MEDS: lisinopriL 40 MG TAB PO SCH (13:26)
[2019-03-17] MEDS: amLODIPine 10 MG TAB PO SCH (13:27)
[2019-03-17] MEDS: metFORMIN (GLUCOPHAGE) 1000 MG TABLET PO SCH (14:49)
[2019-03-17] MEDS ORDERED: LEVEMIR (INSULIN DETEMIR) 1 UNITS/0.01ML SC SCH (21:00)
[2019-03-17] MEDS ORDERED: SIMVASTATIN 40 MG TAB PO SCH (21:00)
[2019-03-18 02:00] VITALS: BP 126/52
[2019-03-18 06:00] VITALS: BP 134/78
[2019-03-18 06:20] LABS: BASO % 0.3 % (0.0-1.0); EOS % 0.1 % (0.0-3.0); HEMATOCRIT 33.8 % (42.0-52.0); HEMOGLOBIN 11.2 g/dl (13.5-17.5); LYMPH # 1.6 10^3/uL (1.5-5.0); MEAN CORPUSCULAR HEMOGLOBIN 27.5 pg (27.0-33.0); MEAN CORPUSCULAR HGB CONC 33.1 g/dl (32.0-36.5); MONO % 9.4 % (0.0-5.0); NEUTROPHILS # 7.8 10^3/uL (1.5-8.5); NEUTROPHILS % 74.6 % (36.0-66.0); PLATELET COUNT, AUTOMATED 167 10^3/uL (150-450); RED BLOOD COUNT 4.07 10^6/uL (4.30-6.10); WHITE BLOOD COUNT 10.5 10^3/uL (4.0-10.0)
[2019-03-18 06:41] LABS: CALCIUM LEVEL 8.8 MG/DL (8.8-10.2); CREATININE FOR GFR 1.54 MG/DL (0.70-1.30); GLOMERULAR FILTRATION RATE 47.9 (>49); POTASSIUM SERUM 4.2 MEQ/L (3.5-5.1)
[2019-03-18] MEDS: amLODIPine 10 MG TAB PO SCH (08:05)
[2019-03-18] MEDS: FUROSEMIDE 40 MG TAB PO SCH (08:05)
[2019-03-18] MEDS: LEVEMIR (INSULIN DETEMIR) 1 UNITS/0.01ML SC SCH (08:05)
[2019-03-18] MEDS: GABAPENTIN 100 MG CAP PO SCH (08:06)
[2019-03-18] MEDS: lisinopriL 40 MG TAB PO SCH (08:06)
[2019-03-18] MEDS: metFORMIN (GLUCOPHAGE) 1000 MG TABLET PO SCH (08:06)
[2019-03-18] MEDS ORDERED: ENOXAPARIN 40 MG/0.4 ML SYRINGE (J1650) SC SCH (09:00)
--- NOTE | 2019-03-18 09:04 | IPNPDOC ---
Subjective General Date/Time Seen The patient was seen on 03/18/19 at 09:01. Subject Chief Complaint/History The patient is a 68-year-old male admitted with a reason for visit of Recurrent Left Inguinal Hernia. Patient reports no abdominal, inguinal or scrotal pain. Denies any nausea or vomiting. His blood sugars are noted to be elevated perioperatively. Current Medications Current Medications Current Medications Medications (Trade) Dose Ordered Sig/Armando Route PRN Reason Start Time Stop Time Status Last Admin Dose Admin Acetaminophen (Tylenol Tab) 650 mg Q4HP PRN PO MILD PAIN or TEMP > 101 03/17/19 11:00 Amlodipine Besylate (Norvasc) 10 mg DAILY PO 03/17/19 09:00 03/18/19 08:05 Dextrose (Dextrose 50%) 25 ml ASDIRECTED PRN IV SEE LABEL COMMENTS 03/17/19 11:00 Enoxaparin Sodium (Lovenox) 40 mg DAILY SC 03/18/19 09:00 03/18/19 08:04 Fentanyl Citrate (Sublimaze) 25 mcg Q5MP PRN IV PAIN LEVEL 5-10 03/17/19 11:45 03/17/19 12:14 DC 03/17/19 11:50 Furosemide (Lasix) 40 mg DAILY PO 03/17/19 09:00 03/18/19 08:05 Gabapentin (Neurontin) 100 mg DAILY PO 03/17/19 09:00 03/18/19 08:06 Glucagon (Glucagon) 1 mg ASDIRECTED PRN SC SEE LABEL COMMENTS 03/17/19 11:00 Glucose (Glucose) 16 GM ASDIRECTED PRN PO SEE LABEL COMMENTS 03/17/19 11:00 Insulin Detemir (Levemir Insulin) 40 units QAM SC 03/17/19 09:00 03/18/19 08:05 Insulin Detemir (Levemir Insulin) 70 units QHS SC 03/17/19 21:00 03/17/19 20:48 Insulin Human Lispro (HumaLOG INSULIN) SEE PROTOCOL TABLE Q6H SC 03/17/19 12:00 03/17/19 14:56 DC Ketorolac Tromethamine (ToRADol) 30 mg Q6HP PRN IV MILD/MODERATE PAIN (PS 1-7) 03/17/19 11:00 03/22/19 10:59 03/17/19 14:49 Lactated Ringer's 1,000 ml @ 75 mls/hr [id number] IV 03/17/19 11:45 03/17/19 12:45 DC 03/17/19 10:54 Lidocaine HCl (LIDOCAINE 1% MDV 20ml) 0.1 ml ONCE PRN SQ DISCOMFORT BEFORE IV START 03/17/19 06:00 Lisinopril (Prinivil) 40 mg DAILY PO 03/17/19 09:00 03/18/19 08:06 Metformin HCl (Glucophage) 1,000 mg DAILY@0800 PO 03/17/19 08:00 03/18/19 08:06 Morphine Sulfate (Morphine Sulfate Inj) 2 mg Q5MP PRN IV PAIN LEVEL 4-7 03/17/19 11:45 03/17/19 12:45 DC Ondansetron HCl (ZOFRAN INJection) 4 mg Q4HP PRN IV NAUSEA OR VOMITING 03/17/19 11:45 03/17/19 12:45 DC Ondansetron HCl (ZOFRAN INJection) 4 mg Q6HP PRN IV NAUSEA OR VOMITING 03/17/19 11:00 03/17/19 11:35 Oxycodone/ Acetaminophen (Percocet 5mg/ 325mg Tablet) 1 tab ASDIRECTED PRN PO PAIN LEVEL 1-4 03/17/19 11:45 03/17/19 12:45 DC Simvastatin (Zocor) 80 mg QHS PO 03/17/19 21:00 03/17/19 20:48 Allergies Coded Allergies: No Known Allergies (Verified , 03/05/19) Objective Physical Examination Examination GENERAL APPEARANCE: Looks very comfortable. SKIN: Warm and moist. HEENT: Normocephalic, atraumatic. [place] palpebral conjunctiva, anicteric sclerae. Lips and mucosa appear moist. NECK: Supple, no thyromegaly. No obvious jugular venous distention. LUNGS: Clear to auscultation bilaterally. No wheezing appreciated. HEART: No chest wall abnormalities. Regular rate and rhythm with no murmurs appreciated. ABDOMEN: Abdomen is round, soft, minimally distended. Port site incisions are clean, dry and intact, no bruising or bleeding or drainage. Left groin without much swelling. Left testicle nontender on manipulation. EXTREMITIES: No edema. Vital Signs Vital Signs Date Time Temp Pulse Resp B/P (MAP) Pulse Ox O2 Delivery O2 Flow Rate FiO2 03/18/19 06:00 97.7 59 18 134/78 (96) 97 Room Air 03/17/19 17:23 2.0 I&Os I&O- Last 24 Hours up to 6 AM 03/18/19 06:00 Intake Total 4405 ml Output Total 2060 ml Balance 2345 ml Laboratory Data Labs 24H Laboratory Tests 2 03/17/19 10:57: Bedside Glucose (Misc Panel) 284H 03/17/19 12:49: Bedside Glucose (Misc Panel) 175H 03/17/19 16:47: Bedside Glucose (Misc Panel) 313H 03/17/19 20:42: Bedside Glucose (Misc Panel) 484H 03/18/19 05:39: Immature Granulocyte % (Auto) 0.6, Neutrophils (%) (Auto) 74.6H, Lymphocytes (%) (Auto) 15.0L, Monocytes (%) (Auto) 9.4H, Eosinophils (%) (Auto) 0.1, Basophils (%) (Auto) 0.3, Neutrophils # (Auto) 7.8, Lymphocytes # (Auto) 1.6, Monocytes # (Auto) 1.0H, Eosinophils # (Auto) 0.0, Basophils # (Auto) 0.0, Nucleated Red Blood Cells % (auto) 0.0, Anion Gap 6L, Glomerular Filtration Rate 47.9L, Calcium Level 8.8 CBC/BMP Laboratory Tests 03/18/19 05:39 Imaging Studies Scrotal ultrasound No evidence for torsion or acute inflammatory process. Incidental findings as noted above. Impression Postop day 1 robotic-assisted laparoscopic repair of recurrent left inguinal hernia, removal of polypropylene plug Diabetes I explained to him the issue during the surgery which is that the vas deferens and what appears to be the testicular vessels are wrapped around the plug. I was able to dissect the vas deferens from the polypropylene plug but then I was manipulating the vessel side I could not find the distal end of the testicular vessels thus there is a good chance that I might have devascularized his testicle so the fact that he is not having any acute ischemic type pain tells me her 1 dose are not entirely the testicular vessels were 2 that the testicle is being served by collateral blood supply and that testicular vessels were no longer functioning due to the erosion from the plug I will get an ultrasound today prior to his discharge. Ultrasound results shows adequate flow to the singular left testicle. Patient had a surgically removed right testicle according to him from what appears to be torsion. There is no sign of ischemic orchitis sites either there is adequate collateral flow or the previously identified structures were not the testicular vessels. Patient is safe for discharge. Plan / VTE VTE Prophylaxis Ordered?: Yes SILVANO MONTANA MD Mar 18, 2019 09:04
[2019-03-18 10:11] VITALS: O2SAT 97
--- NOTE | 2019-03-18 11:54 | REP ---
Clinical: Pain with prior inguinal hernia repair. Technique: Real time hernandez scale and color Doppler evaluation using linear high frequency transducer. Findings: The patient is known to be status post right orchiectomy. The left testicle and epididymis are homogeneous and normal in size, appearance, echo texture, and vascularity. There is no evidence for torsion, mass or or acute infectious/inflammatory process. Incidental left epididymal head cysts measuring up to 4.9 mm. Small hydrocele is nonspecific and appears simple. Few prominent dilated vessels up to 3 mm diameter are nonspecific although early varicoceles cannot be excluded. Impression: No evidence for torsion or acute inflammatory process. Incidental findings as noted above. Electronically Signed by Ambrose Juan MD 03/18/2019 11:46 A
[2019-03-18] MEDS ORDERED: NORC1TAB7 PO (11:59)
[2019-03-18 12:12] VITALS: BP 162/64
== END 2019-03-18 12:48 | disposition home or self-care (01) ==
LOC: M SDC 05:54 → M MSPAV 12:28 → M SDC 03-18 12:48
PROVIDERS: ATTEND Surgery
DX: K40.91 Unilateral inguinal hernia, without obstruction or gangrene, recurrent (principal); I10 Essential (primary) hypertension; E78.5 Hyperlipidemia, unspecified; E11.9 Type 2 diabetes mellitus without complications; Z79.4 Long term (current) use of insulin; Z92.3 Personal history of irradiation; Z85.51 Personal history of malignant neoplasm of bladder; N40.0 Benign prostatic hyperplasia without lower urinary tract symptoms; Z79.899 Other long term (current) drug therapy; Z87.891 Personal history of nicotine dependence
CPT/HCPCS: 36415; 49650; 76870; 80048; 85025; 88300; 93976; 96372; 96374; C1781; J0131; J0690; J1100; J1650; J1885; J2250; J2405; J3010

== ENCOUNTER 2019-05-01 14:35 | Emergency (ER) | payer MEDICARE, OTHER ==
[~2019-05-01] VITALS: Ht 175.3 cm; Wt 89.5 kg
[~2019-05-01 14:35] MED LIST changes: +NORC1TAB7 PO; -OMEP-172 PO; +OMEP1CAP73 PO
[2019-05-01] MEDS ORDERED: amLODIPine 10 MG TAB PO ONE (15:00)
[2019-05-01] MEDS ORDERED: lisinopriL 40 MG TAB PO ONE (15:00)
[2019-05-01] MEDS ORDERED: FUROSEMIDE 40 MG TAB PO ONE (15:00)
[2019-05-01 15:10] LABS: HEMATOCRIT 40.1 % (42.0-52.0); HEMOGLOBIN 12.6 g/dl (13.5-17.5); MEAN CORPUSCULAR HEMOGLOBIN 27.8 pg (27.0-33.0); MEAN CORPUSCULAR HGB CONC 31.4 g/dl (32.0-36.5); MEAN CORPUSCULAR VOLUME 88.5 fl (80.0-96.0); PLATELET COUNT, AUTOMATED 201 10^3/uL (150-450); RED BLOOD COUNT 4.53 10^6/uL (4.30-6.10); WHITE BLOOD COUNT 5.8 10^3/uL (4.0-10.0)
[2019-05-01 15:31] LABS: BLOOD UREA NITROGEN 22 MG/DL (7-18); CALCIUM LEVEL 8.4 MG/DL (8.8-10.2); CARBON DIOXIDE LEVEL 23 MEQ/L (21-32); CHLORIDE LEVEL 108 MEQ/L (98-107); CREATININE FOR GFR 1.22 MG/DL (0.70-1.30); GLOMERULAR FILTRATION RATE > 60.0 (>49); GLUCOSE, FASTING 291 MG/DL (70-100); POTASSIUM SERUM 4.3 MEQ/L (3.5-5.1); SODIUM LEVEL 139 MEQ/L (136-145)
[2019-05-01] MEDS ORDERED: hydrALAZINE INJ 20 MG/ML VIAL IV STA (16:19)
[2019-05-01 16:25] VITALS: BP 245/112
[2019-05-01 17:20] VITALS: BP 170/82
[2019-05-01] MEDS ORDERED: FURO40TA2 PO (17:31)
[2019-05-01] MEDS ORDERED: LISI40TA PO (17:31)
[2019-05-01] MEDS ORDERED: AMLO10TA5 PO (17:31)
--- NOTE | 2019-05-01 21:15 | ECGEPIP ---
[facility] - ED Test Date: 2019-05-01 Pat Name: OLAF SHIELDS Department: Room: - Gender: Male Database Tester: WILFREDO : 1950 Requested By: Mary Carmen Orellana Order Number: [id number] Reading MD: Mary Carmen Orellana Measurements Intervals [place] Rate: 65 P: 45 PA: 145 QRS: 49 QRSD: 109 T: 126 QT: 419 QTc: 438 Interpretive Statements SINUS RHYTHM NONSPECIFIC ST & T-WAVE ABNORMALITY LVH SIMILAR 01/23/19 Electronically Signed on 05-01-2019 21:15:24 EST by Mary Carmen Orellana
== END 2019-05-01 17:52 | disposition home or self-care (01) ==
LOC: M ED 14:35 → EDBD 14:35 → M ED 17:52
DX: I10 Essential (primary) hypertension (principal); E11.9 Type 2 diabetes mellitus without complications; Z91.14 Patient's other noncompliance with medication regimen; Z79.4 Long term (current) use of insulin; Z79.899 Other long term (current) drug therapy

== ENCOUNTER → 2019-07-22 | Outpatient (REF) | payer MEDICARE, OTHER ==
[2019-07-22 18:41] LABS: BASO # 0.1 10^3/uL (0.0-0.2); BASO % 1.3 % (0.0-1.0); EOS # 0.3 10^3/uL (0.0-0.5); EOS % 3.8 % (0.0-3.0); HEMATOCRIT 37.8 % (42.0-52.0); HEMOGLOBIN 12.5 g/dl (13.5-17.5); LYMPH # 2.8 10^3/uL (1.5-5.0); LYMPH % 32.4 % (24.0-44.0); MEAN CORPUSCULAR HEMOGLOBIN 29.2 pg (27.0-33.0); MEAN CORPUSCULAR HGB CONC 33.1 g/dl (32.0-36.5); MEAN CORPUSCULAR VOLUME 88.3 fl (80.0-96.0); MONO # 0.6 10^3/uL (0.0-0.8); MONO % 7.2 % (0.0-5.0); NEUTROPHILS # 4.8 10^3/uL (1.5-8.5); NEUTROPHILS % 54.8 % (36.0-66.0); PLATELET COUNT, AUTOMATED 232 10^3/uL (150-450); RED BLOOD COUNT 4.28 10^6/uL (4.30-6.10); WHITE BLOOD COUNT 8.7 10^3/uL (4.0-10.0)
[2019-07-22 19:13] LABS: HEMOGLOBIN A1c 12.1 %
[2019-07-22 19:18] LABS: ALBUMIN 2.8 GM/DL (3.2-5.2); BILIRUBIN,TOTAL 0.2 MG/DL (0.2-1.0); CALCIUM LEVEL 8.8 MG/DL (8.8-10.2); CHOLESTEROL RISK RATIO 4.1 (<5); CREATININE FOR GFR 1.45 MG/DL (0.70-1.30); FREE T4 1.09 NG/DL (0.76-1.46); GLOMERULAR FILTRATION RATE 51.4 (>49); POTASSIUM SERUM 3.7 MEQ/L (3.5-5.1); THYROID STIMULATING HORMONE 1.03 uIU/ML (0.358-3.740); TOTAL PROTEIN 7.3 GM/DL (6.4-8.2)
[2019-07-22 19:21] LABS: TOTAL 25(OH) VITAMIN D 15.5 NG/ML (30.0-100.0)
[2019-07-22 19:22] LABS: FOLATE 11.1 NG/ML
== END ==
LOC: M LAB REF 18:18
PROVIDERS: ATTEND Nurse Practitioner Family
DX: R60.9 Edema, unspecified (principal); Z13.9 Encounter for screening, unspecified; I10 Essential (primary) hypertension; E11.9 Type 2 diabetes mellitus without complications; E11.40 Type 2 diabetes mellitus with diabetic neuropathy, unspecified; E11.621 Type 2 diabetes mellitus with foot ulcer

== ENCOUNTER 2019-09-20 12:51 | Inpatient (IN) | payer MEDICARE, OTHER ==
[~2019-09-20] VITALS: Ht 175.3 cm; Wt 118.2 kg
[2019-09-20] MEDS ORDERED: LISI40TA PO (14:05)
[2019-09-20] MEDS ORDERED: AMLO10TA5 PO (14:05)
[2019-09-20] MEDS ORDERED: POTA20TA6 PO (14:05)
[2019-09-20] MEDS ORDERED: FURO40TA2 PO (14:05)
[2019-09-20] MEDS ORDERED: HYDR25TAB PO (14:05)
[2019-09-20 14:10] LABS: BASO # 0.1 10^3/uL (0.0-0.2); BASO % 0.7 % (0.0-1.0); EOS # 0.1 10^3/uL (0.0-0.5); EOS % 0.7 % (0.0-3.0); HEMATOCRIT 37.8 % (42.0-52.0); HEMOGLOBIN 12.2 g/dl (13.5-17.5); LYMPH # 1.8 10^3/uL (1.5-5.0); LYMPH % 15.3 % (24.0-44.0); MEAN CORPUSCULAR HEMOGLOBIN 28.6 pg (27.0-33.0); MEAN CORPUSCULAR HGB CONC 32.3 g/dl (32.0-36.5); MEAN CORPUSCULAR VOLUME 88.5 fl (80.0-96.0); MONO # 1.2 10^3/uL (0.0-0.8); MONO % 10.1 % (0.0-5.0); NEUTROPHILS # 8.7 10^3/uL (1.5-8.5); NEUTROPHILS % 72.7 % (36.0-66.0); PLATELET COUNT, AUTOMATED 194 10^3/uL (150-450); RED BLOOD COUNT 4.27 10^6/uL (4.30-6.10)
[2019-09-20 14:29] LABS: ERYTHROCYTE SEDIMENTATION RATE 75 mm/hr (0-20)
[2019-09-20] MEDS ORDERED: NS 1,000 ML IV ONE (15:00)
[2019-09-20 15:09] LABS: INR 1.1; PROTHROMBIN TIME 13.9 SECONDS (11.8-14.0)
[2019-09-20 15:10] LABS: PARTIAL THROMBOPLASTIN TIME 33.5 SECONDS (25.0-38.4)
[2019-09-20 15:20] LABS: C REACTIVE PROTEIN QUANTITATIV 10.3 MG/DL (0.00-0.30); CREATININE FOR GFR 1.28 MG/DL (0.70-1.30); GLOMERULAR FILTRATION RATE 59.3 (>49); POTASSIUM SERUM 3.7 MEQ/L (3.5-5.1)
[2019-09-20] MEDS ORDERED: PIPERACILLIN/TAZOBACTAM SOD 3.375 GM in D5W MINI-BAG PLUS 50 ML IV ONE (15:45)
[2019-09-20] MEDS ORDERED: VANCOMYCIN HCL 2,000 MG in D5W 500 ML IV ONE (15:45)
[2019-09-20] MEDS ORDERED: VANCOMYCIN HCL 1,000 MG, VIAL MATE ADAPTER 1 EACH in D5W 250 ML IV ONE ×7 (16:00→19:00)
[2019-09-20] MEDS ORDERED: GLUCAGON INJ 1MG VIAL SC PRN (16:30)
[2019-09-20] MEDS ORDERED: DEXTROSE 50% 50 ML SYRINGE IV PRN (16:30)
[2019-09-20] MEDS ORDERED: GLUCOSE 4GM CHEW TABLET PO PRN (16:30)
[2019-09-20] MEDS ORDERED: ONDANSETRON 4MG/2ML VIAL IV PRN (17:15)
[2019-09-20] MEDS ORDERED: MORPHINE 2 MG/ML 1ML VIAL (J2270) IV PRN (17:15)
--- NOTE | 2019-09-20 17:36 | HPEPDOC ---
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 Patient stated that he had developed an ulcer on his left second toe approximately 6 months ago. He stated that he did not think much of it. Over the course of the past 6 months he stated that the ulcer worsened and his toe started to become black. About 3 days ago his left 2nd toe fell off. He then developed a throbbing pain and redness in his left foot which prompted him to come to the ER as he was having difficulty with ambulation. He denies any fevers or chills. He denies nausea or vomiting. In the ER the patient was found to be vitally stable. He was hypertensive. He had a mild leukocytosis of 12.0 and elevations of both ESR and CRP. Foot X-ray was obtained with read pending. He was given a normal saline bolus and a dose of vancomycin and zosyn. Patient was seen by Podiatry in the ER with plans to take the patient to the OR for amputation of the left 2nd toe. Hospitalist service was consulted and the patient was admitted for further evaluation and management PAST MEDICAL HISTORY: 1. Diabetes Mellitus Type 2 2. Proliferative Retinopathy 2/2 uncontrolled DMII 3. CKD Stage 3 4. Hypertension 5. Glaucoma 6. Peripheral Artery Disease with h/o left leg stent placement 7. Chronic Diabetic foot ulcers resulting in auto-amputation of the right 2nd- 5th toes PAST SURGICAL HISTORY: 1. Ventral Hernia Repair x2 2. Trans-urethral resection of prostate in 2008 3. Penile Prosthesis Repair in 2009 4. Left Leg Stent in [place] in 2016 SOCIAL HISTORY: Patient lives at home alone. He completes all his ADLs independently. He is a former smoker he quit more than 10 years ago. He used to smoke about 2 ppd for about 20 years. He denies any alcohol use. He denies any IV or illicit drug use FAMILY HISTORY: He has a family history of diabetes. He denies any family history of ASCVD. ALLERGIES: Please see below. REVIEW OF SYSTEMS: CONSTITUTIONAL: Denies fevers, chill, night-sweats. Denies unintentional weight- loss or weight-gain HEENT: Denies difficulty swallowing or odynophagia. Denies cough CARDIOVASCULAR:. Denies chest pain, palpitations or feelings of heart racing. RESPIRATORY:. Denies shortness of breath, denies cough. Denies wheezing, denies shortness of breath while lying flat GASTROINTESTINAL:. Denies abdominal pain. Denies nausea, vomiting, diarrhea or constipation. GENITOURINARY:. Denies dysuria. Denies increased frequency, urgency. SKIN:. Denies any rashes. Admits to ulceration of his left second toe NEUROLOGICAL: Admits to decreased sensation in his bilateral lower extremities. Denies any changes in his gait. Denies any change in speech. PSYCHIATRIC:. Denies depression or anxiety. ENDOCRINE:. Denies any heat intolerance or cold intolerance. Admits to a a history of diabetes, poorly controlled. HEMATOLOGIC/LYMPHATIC: Denies any easy bruising or bleeding. Denies any history of DVT or pulmonary embolism. HOME MEDICATIONS: Please see below. PHYSICAL EXAMINATION: VITAL SIGNS: Temperature 99.4, pulse 68, respiratory rate 18, blood pressure 188\78, pulse oximetry 97 % on room air. GENERAL APPEARANCE: Awake, alert, oriented, appears in no acute distress, lying comfortably in stretcher. HEENT:, Atraumatic, normocephalic. Eyes are nonicteric. Trachea is midline. Dentition is fair. CARDIOVASCULAR: Normal S1, S2, regular rate and rhythm. No clicks, rubs or murmurs. LUNGS:. Clear vesicular breath sounds bilaterally. Good respiratory effort. No wheezes, rhonchi or rales. ABDOMEN:. Soft, nondistended, nontender, no rebound tenderness or guarding. Normoactive bowel sounds throughout. EXTREMITIES: 1-2+ pitting edema bilateral lower extremities. Right foot with amputation of digits 2 through 5. Left foot is mildly erythematous. Left second toe with partial amputation and black eschar as well as surrounding erythema. There is no visible exposed bone NEUROLOGICAL:. No focal neurological deficits. PSYCHIATRIC: Mood and affect appear appropriate for situation. LABORATORY DATA: See below. IMAGING: Foot X-ray pending MICROBIOLOGY: Please see below. ASSESSMENT:. Patient is a 68-year-old male who presented to [facility] emergency department with a left second toe autoamputation from a diabetic foot ulcer. He's been treated with vancomycin and Zosyn for empiric coverage including MRSA. Patient was seen by podiatry in the ER for tentative amputation of his left second toe PLAN: 1. Left toe diabetic foot ulcer, complicated with osteomyelitis and left foot cellulitis -Patient had a left second toe ulceration approximately 6 months ago, which has progressed into dry gangrene and subsequently autoamputation. There is currently overlying erythema consistent with a cellulitis. He has had a foot x- ray completed in the ER, the read is pending. However, it is highly likely that there is some degree of osteomyelitis. Patient was seen by Dr. Johnson in the ER and case was discussed. Patient will tentatively be taken to the OR either today or tomorrow for amputation of his left second toe -Operative amputation of left second toe per Podiatry -Nothing by mouth for now until after his procedure -Continue broad-spectrum antibiotics including both vancomycin for MRSA coverage and Zosyn -Physical therapy and occupational therapy -Morphine and Tylenol for pain management -Zofran for nausea, vomiting 2. Hypertension -Patient has a history of hypertension. He is hypertensive in the emergency department. Patient is currently tentatively planned for surgical amputation of his left second toe. Will hold off on home antihypertensives for now until after his procedure. Once patient procedures completed, he can be resumed on his outpatient antihypertensives. -Currently holding Norvasc 10 mg by mouth daily, lisinopril 40 mg by mouth daily and hydrochlorothiazide 25 mg by mouth daily. Will resume after patient's procedure 3. Lower extremity edema -Patient has lower extremity edema. He denies any history of congestive heart failure. However, given his hypertension, most likely has hypertensive heart disease -Patient takes furosemide 40 mg by mouth daily at home. Currently holding. May resume after patient's procedure 4.. Diabetes mellitus type 2 -Hemoglobin A1c ordered. Currently pending. -Patient takes 70 units subcutaneous long-acting insulin at night and 40 units in the morning. He states he does not check his blood sugar at home. He likely a poorly controlled diabetic. -Patient is currently nothing by mouth. Will hold long-acting insulin. Fingersticks every 6 hours. -Will place on sliding scale insulin coverage -Once patient's procedure is complete, will start consistent carbohydrate diet with ACHS coverage -Long-acting insulin at 25 units twice a day once diet is resumed 5. DVT prophylaxis -Heparin subcutaneous Vital Signs Vital Signs Date Time Temp Pulse Resp B/P (MAP) Pulse Ox O2 Delivery O2 Flow Rate FiO2 09/20/19 13:20 09/20/19 12:53 99.4 68 18 97 Room Air Laboratory Data Labs 24H Laboratory Tests 2 09/20/19 13:56: Immature Granulocyte % (Auto) 0.5, Neutrophils (%) (Auto) 72.7H, Lymphocytes (%) (Auto) 15.3L, Monocytes (%) (Auto) 10.1H, Eosinophils (%) (Auto) 0.7, Basophils (%) (Auto) 0.7, Neutrophils # (Auto) 8.7H, Lymphocytes # (Auto) 1.8, Monocytes # (Auto) 1.2H, Eosinophils # (Auto) 0.1, Basophils # (Auto) 0.1, Nucleated Red Blood Cells % (auto) 0.0, Erythrocyte Sedimentation Rate 75H, Lactic Acid Level 1.5 09/20/19 14:46: Prothrombin Time 13.9, Prothromb Time International Ratio 1.10, Activated Partial Thromboplast Time 33.5, Anion Gap 4L, Glomerular Filtration Rate 59.3, Calcium Level 8.0L, C-Reactive Protein, Quantitative 10.30H CBC/BMP Laboratory Tests 09/20/19 13:56 09/20/19 14:46 Microbiology Microbiology 09/20/19 Blood Culture, Received Pending 09/20/19 Blood Culture, Received Pending Home Medications Scheduled Amlodipine Besylate (Amlodipine Besylate) 10 Mg Tablet, 10 MG PO DAILY Furosemide (Furosemide) 40 Mg Tablet, 40 MG PO DAILY Hydrochlorothiazide (Hydrochlorothiazide) 25 Mg Tablet, 25 MG PO DAILY Insulin Detemir (Levemir) 100 Unit/1 Ml Vial, 40 UNITS SC QAM Insulin Detemir (Levemir) 100 Unit/1 Ml Vial, 70 UNITS SC QHS Linagliptin (Tradjenta) 5 Mg Tablet, 5 MG PO DAILY Lisinopril (Lisinopril) 40 Mg Tablet, 40 MG PO DAILY Metformin HCl (Metformin HCl) 1,000 Mg Tablet, 1,000 MG PO BID Potassium Chloride (Potassium Chloride) 20 Meq Tab.er.prt, 20 MEQ PO DAILY Simvastatin (Zocor) 80 Mg Tablet, 80 MG PO DAILY Allergies Coded Allergies: No Known Allergies (Verified , 03/05/19) A-FIB/CHADSVASC A-FIB History Current/History of A-Fib/PAF?: No GME ATTESTATION GME ATTESTATION My faculty preceptor for this patient encounter was physically present during the encounter and was fully available. All aspects of the patient interview, examination, medical decision making process, and medical care plan development were reviewed and approved by the faculty preceptor. The faculty preceptor is aware and concurs with the plan as stated in the body of this note and will attest to such by his/her cosignature. ATTENDING NOTE I, Vandana Benz, have independently examined this patient and performed my own physical exam, as well as reviewed the documentation and edited where necessary. I have discussed in detail with the resident / student the findings and plan of treatment as documented by the resident / student and edited their note. I agree with their findings and treatment plan and have edited their documentation. I will continue to follow the patient during this hospital stay. ROS HARRIS DO Sep 20, 2019 17:36 VANDANA BENZ MD Sep 20, 2019 19:54
[2019-09-20 17:42] LABS: HEMOGLOBIN A1c 9.7 %
[2019-09-20] MEDS ORDERED: amLODIPine 5 MG TAB PO ONE (19:00)
[2019-09-20 19:21] VITALS: BP 198/78
[2019-09-20 19:22] VITALS: BP 188/76
[2019-09-20] MEDS: HumaLOG INSULIN (NovoLOG) PER UNIT SC SCH ×2 (19:32→23:46)
[2019-09-20] MEDS: NS 1,000 ML IV SCH (19:32)
[2019-09-20 20:00] VITALS: BP 158/64
[2019-09-20] MEDS: **hydrALAZINE** 10 MG TAB PO PRN (20:53)
[2019-09-20] MEDS: HEPARIN SOD (PORCINE) 5000UNITS/ML VIAL (J1644 PER 1000UNITS) SQ SCH (20:53)
[2019-09-20] MEDS: PIPERACILLIN/TAZOBACTAM SOD 3.375 GM in D5W MINI-BAG PLUS 50 ML IV SCH (22:15)
[2019-09-20 22:25] VITALS: BP 170/70
[2019-09-21] VITALS (7 sets, daily range): BP systolic 142–180; BP diastolic 57–118
[2019-09-21] MEDS: VANCOMYCIN HCL 1,000 MG, VIAL MATE ADAPTER 1 EACH in D5W 250 ML IV SCH ×3 (04:16→20:18)
[2019-09-21] MEDS: **hydrALAZINE** 10 MG TAB PO PRN ×3 (04:20→23:51)
[2019-09-21] MEDS: PIPERACILLIN/TAZOBACTAM SOD 3.375 GM in D5W MINI-BAG PLUS 50 ML IV SCH ×4 (06:06→23:50)
[2019-09-21] MEDS: HumaLOG INSULIN (NovoLOG) PER UNIT SC SCH ×3 (06:07→18:39)
[2019-09-21] MEDS: NS 1,000 ML IV SCH ×2 (06:48→21:06)
--- NOTE | 2019-09-21 07:25 | CR ---
DATE OF CONSULTATION: 09/20/2019 REASON FOR CONSULTATION: Left 2nd toe ulceration . Trung Hannah is a patient who has intermittently seen me in the past. He has a longstanding history of ulcerations to his toe. He has been generally noncompliant and has not followed up for his followup appointments. At some point, on his right foot all the toes have auto-amputated. He states over the last 3 weeks, his left 2nd toe fell off. He does not recall any injury to it. PAST MEDICAL HISTORY: Significant for Diabetes with neuropathy. Retinopathy. Nephropathy. Hypertension. Peripheral arterial disease. PAST SURGICAL HISTORY: Includes left leg stent. Penile prosthesis. FAMILY HISTORY: Diabetes. SOCIAL HISTORY: Former smoker. Denies alcohol or drug use. REVIEW OF SYSTEMS: Negative for nausea, vomiting, fever or chills. Vitals are examined. Temperature is 99.4. Labs are examined. White blood cell count is 12, ESR 75. CRP 10.3. X-ray images are reviewed of the left foot. There has been complete erosive change of the 2nd toe at the remaining middle phalanx. The distal phalanx and distal part of the toe are completely absent. There is no soft tissue gas or emphysema. Lower extremity examination: Pedal pulses are weakly palpable. The left 2nd toe is partially amputated at about the mid level with fiber necrotic tissue at the distal portion of the toe. There is some local erythema and edema stemming from this site. IMPRESSION: 1. Diabetes neuropathy. 2. Left 2nd toe ulceration, cellulitis. PLAN: Direct antibiotics started. Patient will have the remaining portion of that toe surgically amputated to speed up recovery and wound healing. Will plan this for the next day or two. MORELIA
[2019-09-21 07:42] LABS: HEMATOCRIT 33.3 % (42.0-52.0); HEMOGLOBIN 10.8 g/dl (13.5-17.5); MEAN CORPUSCULAR HEMOGLOBIN 28.8 pg (27.0-33.0); MEAN CORPUSCULAR HGB CONC 32.4 g/dl (32.0-36.5); MEAN CORPUSCULAR VOLUME 88.8 fl (80.0-96.0); PLATELET COUNT, AUTOMATED 172 10^3/uL (150-450); RED BLOOD COUNT 3.75 10^6/uL (4.30-6.10); WHITE BLOOD COUNT 9.7 10^3/uL (4.0-10.0)
[2019-09-21 08:02] LABS: BLOOD UREA NITROGEN 11 MG/DL (7-18); CALCIUM LEVEL 7.8 MG/DL (8.8-10.2); CARBON DIOXIDE LEVEL 26 MEQ/L (21-32); CHLORIDE LEVEL 105 MEQ/L (98-107); CREATININE FOR GFR 1.07 MG/DL (0.70-1.30); GLOMERULAR FILTRATION RATE > 60.0 (>49); GLUCOSE, FASTING 189 MG/DL (70-100); POTASSIUM SERUM 3.5 MEQ/L (3.5-5.1); SODIUM LEVEL 138 MEQ/L (136-145)
[2019-09-21] MEDS ORDERED: POTASSIUM CHLORIDE 10 MEQ SR TABLET PO ONE (09:00)
[2019-09-21] MEDS ORDERED: SIMVASTATIN 40 MG TAB PO SCH (09:00)
[2019-09-21] MEDS ORDERED: FUROSEMIDE 40 MG TAB PO SCH (09:00)
[2019-09-21] MEDS ORDERED: PREVNAR 13 VACCINE SYRINGE (CPT CODE:90670) IM ONE (09:00)
--- NOTE | 2019-09-21 09:09 | IPNPDOC ---
Date Seen The patient was seen on 09/21/19. Progress Note SUBJECTIVE: 68-year-old male with past medical history of hypertension, diabetes mellitus, hyperlipidemia, peripheral artery disease, chronic foot ulcers without amputations and chronic kidney disease, was admitted yesterday for diabetic foot ulcer/wound with autoamputation. Patient reports that second digit on his left foot fell off a few days ago, presented to the hospital due to worsening pain and swelling of the foot. He was evaluated by podiatry and is scheduled for surgery later today. He is otherwise comfortable, no complaints other than foot pain/swelling. He denies any shortness of breath, chest pain, nausea, vomiting, diarrhea or constipation. 10 point review of system is negative except for above PHYSICAL EXAMINATION: VITAL SIGNS: Please see below. GENERAL: No distress HEENT: Normocephalic, atraumatic, moist mucous membranes NECK: Supple CARDIOVASCULAR EXAMINATION: S1, S2, no murmurs RESPIRATORY EXAMINATION: Clear to auscultation, no wheezing ABDOMINAL EXAMINATION: Soft, nontender, nondistended, positive bowel sounds EXTREMITIES: Right foot with multiple autoamputations of distal digits, left foot second digit with open wound, minimal drainage, significant surrounding edema and tenderness to palpation of left foot SKIN: No rash NEUROLOGICAL EXAMINATION: Alert and oriented 3, no focal deficits PSYCHIATRIC EXAMINATION: Calm and cooperative LABORATORY DATA, IMAGING STUDIES, MICROBIOLOGY: Please see below. ASSESSMENT AND PLAN: 68-year-old male with multiple medical comorbidities is admitted for left foot wound status post autoamputation of distal second digit. PROBLEMS: 1. Diabetic foot ulcer/wound: Distal second digit on left foot autoamputated a few days ago, left foot with significant edema and tenderness concerning for spreading infection, evaluated by podiatry, scheduled for later today, continue broad-spectrum antibody coverage of vancomycin and Zosyn, cultures pending, nothing by mouth, continue maintenance fluids. 2. Diabetes mellitus: Sliding scale insulin coverage every 6 hours. 3. Hypertension: Continue Norvasc, lisinopril and hydrochlorothiazide. 4. Hyperlipidemia: Continue simvastatin, dose decreased to 20 mg daily as that is the maximum dose as patient is also taking Norvasc. DVT prophylaxis: SCDs GI prophylaxis: Not needed VS, I&O, 24H, Fishbone Vital Signs/I&O Vital Signs Date Time Temp Pulse Resp B/P (MAP) Pulse Ox O2 Delivery O2 Flow Rate FiO2 09/21/19 06:00 99.1 67 18 180/70 (106) 95 Room Air I&O- Last 24 Hours up to 6 AM 09/21/19 06:00 Intake Total 1350 ml Output Total 1000 ml Balance 350 ml Laboratory Data 24H LABS Laboratory Tests 2 09/20/19 13:56: Immature Granulocyte % (Auto) 0.5, Neutrophils (%) (Auto) 72.7H, Lymphocytes (%) (Auto) 15.3L, Monocytes (%) (Auto) 10.1H, Eosinophils (%) (Auto) 0.7, Basophils (%) (Auto) 0.7, Neutrophils # (Auto) 8.7H, Lymphocytes # (Auto) 1.8, Monocytes # (Auto) 1.2H, Eosinophils # (Auto) 0.1, Basophils # (Auto) 0.1, Nucleated Red Blood Cells % (auto) 0.0, Erythrocyte Sedimentation Rate 75H, Estimated Mean Plasma Glucose 232H, Hemoglobin A1c 9.7, Lactic Acid Level 1.5 09/20/19 14:46: Prothrombin Time 13.9, Prothromb Time International Ratio 1.10, Activated Partial Thromboplast Time 33.5, Anion Gap 4L, Glomerular Filtration Rate 59.3, Calcium Level 8.0L, C-Reactive Protein, Quantitative 10.30H 09/20/19 19:29: Bedside Glucose (Misc Panel) 182H 09/20/19 23:36: Bedside Glucose (Misc Panel) 172H 09/21/19 06:02: Bedside Glucose (Misc Panel) 192H 09/21/19 06:52: Nucleated Red Blood Cells % (auto) 0.0, Anion Gap 7L, Glomerular Filtration Rate > 60.0, Calcium Level 7.8L 09/21/19 07:28: Coronavirus (COVID-19)(PCR) NEGATIVE CBC/BMP Laboratory Tests 09/20/19 13:56 09/20/19 14:46 09/21/19 06:52 Microbiology Microbiology 09/20/19 Blood Culture, Received Pending 09/20/19 Blood Culture, Received Pending VIC STEPHENS MD Sep 21, 2019 09:09
[2019-09-21] MEDS: SIMVASTATIN 20 MG TAB PO SCH (09:15)
[2019-09-21] MEDS: amLODIPine 10 MG TAB PO SCH (09:15)
[2019-09-21] MEDS: hydroCHLOROthiazide 25 MG TAB PO SCH (09:15)
[2019-09-21] MEDS: lisinopriL 40 MG TAB PO SCH (09:16)
[2019-09-21] MEDS ORDERED: LIDOCAINE 1% SDV 30ML VIAL As Ordered ONE (13:27)
[2019-09-21] MEDS ORDERED: BUPIVACAINE HCL 0.5% 30 ML VIAL As Ordered ONE (13:27)
[2019-09-21] MEDS ORDERED: LIDOCAINE 2% 100MG/5ML SDV (FOR ANES.) As Ordered ONE (13:33)
[2019-09-21] MEDS ORDERED: propofoL 200 MG/20 ML VIAL As Ordered ONE (13:33)
[2019-09-21] MEDS ORDERED: MIDAZOLAM INJ 2MG/2ML VIAL (J2250 PER 1MG) As Ordered ONE (13:33)
[2019-09-21] MEDS ORDERED: fentaNYL 100 MCG/2 ML INJECTION (J3010) As Ordered ONE (13:33)
[2019-09-21] MEDS ORDERED: LR 1,000 ML IV SCH (14:30)
[2019-09-21] MEDS ORDERED: METOCLOPRAMIDE INJ 10MG/2ML VIAL (J2765 PER 1) IV PRN (14:30)
[2019-09-21] MEDS ORDERED: ONDANSETRON 4MG/2ML VIAL IV PRN (14:30)
[2019-09-21] MEDS ORDERED: fentaNYL 100 MCG/2 ML INJECTION (J3010) IV PRN (14:30)
[2019-09-21] MEDS ORDERED: PERCOCET 5MG/325MG TAB PO PRN (14:30)
[2019-09-21] MEDS: ACETAMINOPHEN TAB 650MG DOSE (2X325MG) PO PRN (20:19)
[2019-09-21] MEDS: HEPARIN SOD (PORCINE) 5000UNITS/ML VIAL (J1644 PER 1000UNITS) SQ SCH (23:50)
[2019-09-22 02:00] VITALS: BP 157/69
[2019-09-22 05:00] VITALS: BP 165/67
[2019-09-22] MEDS: VANCOMYCIN HCL 1,000 MG, VIAL MATE ADAPTER 1 EACH in D5W 250 ML IV SCH (05:07)
[2019-09-22] MEDS: HEPARIN SOD (PORCINE) 5000UNITS/ML VIAL (J1644 PER 1000UNITS) SQ SCH ×3 (06:11→22:45)
[2019-09-22] MEDS: PIPERACILLIN/TAZOBACTAM SOD 3.375 GM in D5W MINI-BAG PLUS 50 ML IV SCH ×5 (06:11→22:45)
[2019-09-22] MEDS: **hydrALAZINE** 10 MG TAB PO PRN ×2 (06:12→22:46)
[2019-09-22] MEDS: ACETAMINOPHEN TAB 650MG DOSE (2X325MG) PO PRN ×2 (06:12→20:03)
[2019-09-22 06:27] LABS: HEMATOCRIT 34.3 % (42.0-52.0); HEMOGLOBIN 11.4 g/dl (13.5-17.5); MEAN CORPUSCULAR HEMOGLOBIN 29.2 pg (27.0-33.0); MEAN CORPUSCULAR HGB CONC 33.2 g/dl (32.0-36.5); MEAN CORPUSCULAR VOLUME 87.9 fl (80.0-96.0); PLATELET COUNT, AUTOMATED 168 10^3/uL (150-450); WHITE BLOOD COUNT 9.8 10^3/uL (4.0-10.0)
[2019-09-22 06:55] LABS: BLOOD UREA NITROGEN 10 MG/DL (7-18); CALCIUM LEVEL 7.5 MG/DL (8.8-10.2); CARBON DIOXIDE LEVEL 25 MEQ/L (21-32); CHLORIDE LEVEL 105 MEQ/L (98-107); GLOMERULAR FILTRATION RATE > 60.0 (>49); GLUCOSE, FASTING 218 MG/DL (70-100); POTASSIUM SERUM 3.9 MEQ/L (3.5-5.1); SODIUM LEVEL 138 MEQ/L (136-145)
[2019-09-22] MEDS: HumaLOG INSULIN (NovoLOG) PER UNIT SC SCH ×3 (07:45→17:31)
[2019-09-22] MEDS: hydroCHLOROthiazide 25 MG TAB PO SCH (07:46)
[2019-09-22] MEDS: lisinopriL 40 MG TAB PO SCH (07:46)
[2019-09-22] MEDS: amLODIPine 10 MG TAB PO SCH (07:46)
[2019-09-22] MEDS: SIMVASTATIN 20 MG TAB PO SCH (07:46)
[2019-09-22] MEDS: LEVEMIR (INSULIN DETEMIR) 1 UNITS/0.01ML SC SCH ×2 (09:00→22:45)
[2019-09-22] MEDS: NS 1,000 ML IV SCH (10:20)
--- NOTE | 2019-09-22 11:02 | REP ---
REASON: Toe pain. COMPARISON: Presurgical exam, 09/24/2018. Since the last exam, there has been surgical excision of the distal aspect of the 2nd digit with only the base of the middle phalanx remaining. There are degenerative changes seen involving the foot, status quo. There is dorsal soft tissue swelling. I see no definite evidence of an acute fracture. IMPRESSION: Findings as described above. If osteomyelitis is a clinical concern, then pre- and post-gadolinium enhanced MRI is recommended. Electronically Signed by Clovis Geronimo DO 09/22/2019 03:14 P
[2019-09-22 14:00] VITALS: BP 168/66
--- NOTE | 2019-09-22 14:08 | IPNPDOC ---
Date Seen The patient was seen on 09/22/19. Progress Note SUBJECTIVE: Patient was seen and examined this morning. He is s/p amputation of his left second toe yesterday. Currently the patient is reporting some pain although his pain is not severe. Patient has been afebrile since admission OBJECTIVE PHYSICAL EXAMINATION: VITAL SIGNS: Please see below. GENERAL APPEARANCE: Awake, alert, oriented, appears in no acute distress. Lying in bed comfortably HEENT:, Atraumatic, normocephalic. Eyes are nonicteric. Trachea is midline CARDIOVASCULAR: Normal S1, S2, regular rate and rhythm. No clicks, rubs or murmurs. LUNGS:. Clear vesicular breath sounds bilaterally. Good respiratory effort. No wheezes, rhonchi or rales. ABDOMEN:. Soft, nondistended, nontender, no rebound tenderness or guarding. Normoactive bowel sounds throughout. EXTREMITIES: 1-2+ pitting edema bilateral lower extremities. Right foot with amputation of digits 2 through 5. Left foot with bandage applied. No oozing around dressing NEUROLOGICAL:. No focal neurological deficits. PSYCHIATRIC: Mood and affect appear appropriate for situation. LABORATORY DATA, IMAGING STUDIES, MICROBIOLOGY: Please see below. DVT prophylaxis ordered?: Heparin SQ ASSESSMENT AND PLAN: Patient is a 68 year old male with poorly controlled diabetes who presented to [facility] with left foot cellulitis with likely osteomyelitis and autoamputation of the left second toe PROBLEMS: 1. Left toe diabetic foot ulcer, complicated with osteomyelitis and left foot cellulitis -Patient is s/p amputation of his left second toe due to osteomyelitis. -Continue broad-spectrum antibiotics -Vancomycin on hold due to increased Vancomycin trough. Target 15-20 -Continue Zosyn -Patient lost IV access. PICC line to be placed -Patient is pending culture data. Will deescalate antibiotics once culture data available -Physical therapy and occupational therapy -Morphine and Tylenol for pain management -Zofran for nausea, vomiting 2. Hypertension -Continue home antihypertensives 3. Diabetes mellitus type 2 -Hemoglobin A1c 9.7 -Patient takes 70 units subcutaneous long-acting insulin at night and 40 uni ts in the morning. He states he does not check his blood sugar at home. He likely a poorly controlled diabetic. -Will start long acting Levemir, 25 units BID -ACHS fingersticks with sliding scale insulin 4. DVT prophylaxis -Heparin subcutaneous VS, I&O, 24H, Fishbone Vital Signs/I&O Vital Signs Date Time Temp Pulse Resp B/P (MAP) Pulse Ox O2 Delivery O2 Flow Rate FiO2 09/22/19 07:46 72 165/67 09/22/19 05:00 99.5 17 96 Room Air 09/21/19 17:30 2.0 I&O- Last 24 Hours up to 6 AM 09/22/19 06:00 Intake Total 2205 ml Output Total 2076 ml Balance 129 ml Laboratory Data 24H LABS Laboratory Tests 2 09/21/19 14:03: Bedside Glucose (Misc Panel) 164H 09/21/19 18:35: Bedside Glucose (Misc Panel) 153H 09/21/19 20:16: Bedside Glucose (Misc Panel) 123H 09/22/19 06:09: Nucleated Red Blood Cells % (auto) 0.0, Anion Gap 8, Glomerular Filtration Rate > 60.0, Calcium Level 7.5L, C-Reactive Protein, Quantitative 13.90H 09/22/19 11:07: Vancomycin Level Trough 28.1*H 09/22/19 11:46: Bedside Glucose (Misc Panel) 212H CBC/BMP Laboratory Tests 09/22/19 06:09 Microbiology Microbiology 09/20/19 Blood Culture - Preliminary, Resulted No growth after 24 hours . All specim... 09/20/19 Blood Culture - Preliminary, Resulted No growth after 24 hours . All specim... ROS HARRIS DO Sep 22, 2019 14:08
[2019-09-22] MEDS ORDERED: LIDOCAINE 1% MDV 20ML VIAL As Ordered ONE (14:29)
[2019-09-22 19:54] VITALS: BP 165/67
[2019-09-22] MEDS: VANCOMYCIN HCL 750 MG, VIAL MATE ADAPTER 1 EACH in D5W 250 ML IV SCH (20:03)
[2019-09-22] MEDS ORDERED: HumaLOG INSULIN (NovoLOG) PER UNIT SC SCH (21:00)
[2019-09-22] MEDS ORDERED: VANCOMYCIN HCL 500 MG in D5W MINI-BAG PLUS 100 ML IV SCH (21:00)
--- NOTE | 2019-09-22 21:34 | REP ---
Procedure: PICC line insertion with Rosalino The procedure was performed under the direct supervision of Dr. Dover. The risks and benefits of the procedure were explained to the patient and informed consent was obtained. The right brachial vein was localized using ultrasound guidance. The skin was prepped and draped in a sterile fashion. 2% lidocaine was used as a local anesthetic. Using ultrasound guidance the brachial vein was cannulated and a 0.018 guidewire was inserted and advanced to the SVC using fluoroscopic guidance. The needle was removed and a 4.5 Czech dilator and peel-away sheath was inserted over the guide wire. A 4.5 Czech single lumen catheter was cut to length of 43 cm. The dilator was removed and the catheter was inserted over the guide wire with the tip ending in the SVC. The peel-away sheath was removed and the catheter was flushed with heparinized saline as per Hospital protocol. The catheter was affixed to the skin and a sterile dressing was applied. The patient tolerated the procedure well and there were no immediate complications. 0.1 minutes of fluoro time was utilized for this procedure. Electronically Signed by HERBERT Cantrell 09/22/2019 04:17 P Electronically Signed by Hayes Dover MD 09/22/2019 09:24 P
[2019-09-23] MEDS: NS 1,000 ML IV SCH (01:42)
[2019-09-23] MEDS ORDERED: SODIUM CHLORIDE 0.9% INJ 10 ML SYR IV PRN (03:30)
[2019-09-23] MEDS: ACETAMINOPHEN TAB 650MG DOSE (2X325MG) PO PRN (04:46)
[2019-09-23] MEDS: PIPERACILLIN/TAZOBACTAM SOD 3.375 GM in D5W MINI-BAG PLUS 50 ML IV SCH ×3 (04:46→15:00)
[2019-09-23 05:48] VITALS: BP 145/56
[2019-09-23] MEDS ORDERED: SODIUM CHLORIDE 0.9% INJ 10 ML SYR IV SCH (06:00)
[2019-09-23] MEDS: HEPARIN SOD (PORCINE) 5000UNITS/ML VIAL (J1644 PER 1000UNITS) SQ SCH ×2 (06:11→14:57)
[2019-09-23 06:39] LABS: HEMATOCRIT 32.6 % (42.0-52.0); HEMOGLOBIN 10.6 g/dl (13.5-17.5); MEAN CORPUSCULAR HEMOGLOBIN 28.5 pg (27.0-33.0); MEAN CORPUSCULAR HGB CONC 32.5 g/dl (32.0-36.5); MEAN CORPUSCULAR VOLUME 87.6 fl (80.0-96.0); PLATELET COUNT, AUTOMATED 187 10^3/uL (150-450); RED BLOOD COUNT 3.72 10^6/uL (4.30-6.10); WHITE BLOOD COUNT 7.2 10^3/uL (4.0-10.0)
[2019-09-23 07:00] LABS: CALCIUM LEVEL 7.9 MG/DL (8.8-10.2); CREATININE FOR GFR 1.47 MG/DL (0.70-1.30); GLOMERULAR FILTRATION RATE 50.6 (>49); POTASSIUM SERUM 3.4 MEQ/L (3.5-5.1)
[2019-09-23] MEDS ORDERED: POTASSIUM CHLORIDE 10 MEQ SR TABLET PO ONE (07:30)
[2019-09-23] MEDS: HumaLOG INSULIN (NovoLOG) PER UNIT SC SCH ×2 (07:30→12:27)
[2019-09-23] MEDS: LEVEMIR (INSULIN DETEMIR) 1 UNITS/0.01ML SC SCH (08:09)
[2019-09-23 08:10] VITALS: BP 170/66
[2019-09-23] MEDS: amLODIPine 10 MG TAB PO SCH (08:10)
[2019-09-23] MEDS: SIMVASTATIN 20 MG TAB PO SCH (08:10)
[2019-09-23] MEDS: VANCOMYCIN HCL 750 MG, VIAL MATE ADAPTER 1 EACH in D5W 250 ML IV SCH (08:11)
[2019-09-23] MEDS: hydroCHLOROthiazide 25 MG TAB PO SCH (08:11)
[2019-09-23] MEDS: **hydrALAZINE** 10 MG TAB PO PRN (08:13)
[2019-09-23] MEDS ORDERED: NS 1,000 ML IV SCH (10:00)
[2019-09-23] MEDS ORDERED: PERCOCET 5MG/325MG TAB PO PRN (11:00)
[2019-09-23 11:02] LABS: APPEARANCE, URINE CLEAR (CLEAR); BACTERIA, URINE AUTO 1+ (NEGATIVE); BILIRUBIN, URINE AUTO NEGATIVE (NEGATIVE); BLOOD, URINE BLOOD NEGATIVE (NEGATIVE); COLOR, URINE YELLOW (YELLOW); GLUCOSE, URINE (UA) AUTO NEGATIVE (NEGATIVE); KETONE, URINE AUTO NEGATIVE (NEGATIVE); LEUKOCYTE ESTERASE, URINE AUTO NEGATIVE (NEGATIVE); NITRITE, URINE AUTO NEGATIVE (NEGATIVE); PROTEIN, URINE AUTO 2+ mg/dL (NEGATIVE); RBC, URINE AUTO 1 /HPF (0-3); SPECIFIC GRAVITY URINE AUTO 1.009 (1.002-1.035); SQUAMOUS EPITHELIAL CELL UR AU 0 /HPF (0-6); WBC, URINE AUTO 1 /HPF (0-3)
--- NOTE | 2019-09-23 11:19 | IPNPDOC ---
Date Seen The patient was seen on 09/23/19. Progress Note SUBJECTIVE: Patient was seen and examined this morning he currently has no new complaints. He has continued pain in his left foot. There have been no adverse events reported overnight. The patient did have a slight elevation in his Cr. He has mentioned that he is having increased urinary frequency however denies any dysuria OBJECTIVE PHYSICAL EXAMINATION: VITAL SIGNS: Please see below. GENERAL APPEARANCE: Awake, alert, oriented, appears in no acute distress. Lying in bed comfortably HEENT:, Atraumatic, normocephalic. Eyes are nonicteric. Trachea is midline CARDIOVASCULAR: Normal S1, S2, regular rate and rhythm. No clicks, rubs or murmurs. LUNGS:. Clear vesicular breath sounds bilaterally. Good respiratory effort. No wheezes, rhonchi or rales. ABDOMEN:. Soft, nondistended, nontender, no rebound tenderness or guarding. Normoactive bowel sounds throughout. EXTREMITIES: 1-2+ pitting edema bilateral lower extremities. Right foot with amputation of digits 2 through 5. Left foot with bandage applied. Dressing is without oozing or drainage NEUROLOGICAL:. No focal neurological deficits. PSYCHIATRIC: Mood and affect appear appropriate for situation. LABORATORY DATA, IMAGING STUDIES, MICROBIOLOGY: Please see below. DVT prophylaxis ordered?: Heparin SQ ASSESSMENT AND PLAN: Patient is a 68 year old male with poorly controlled diabetes who presented to [facility] with left foot cellulitis with likely osteomyelitis and autoamputation of the left second toe who was taken by Podiatry for amputation of 2nd toe. Patient has developed an acute kidney injury overnight PROBLEMS: 1. Left toe diabetic foot ulcer, complicated with osteomyelitis and left foot cellulitis -Patient is s/p amputation of his left second toe due to osteomyelitis. -Patient is continued on Vancomycin and Zosyn pending bone culture results. He has a right arm PICC line in place -Vancomycin trough was elevated yesterday and vancomycin was placed on hold -Patient is pending culture data. Will deescalate antibiotics once culture data available -Physical therapy and occupational therapy -Morphine and Tylenol for pain management -Will transition to oral pain medication -Zofran for nausea, vomiting -Repeat CRP tomorrow to ensure proper antimicrobial coverage 2. Acute Kidney Injury -Patient has an increase in his Cr today to 1.47. His baseline appears to be 1.0-1.2. -EDOUARD likely secondary to increased vancomycin trough previously. Will continue IV hydration -Will hold Lisinopril in light of acute kidney injury -Urinalysis has been ordered. Negative for bacteria. No microscopic hematuria to suggest ATN or nephritic process -Will trend Cr 3. Hypertension -Lisinopril on HOLD. -Patient is currently hypertensive he does have PRN PO hydralazine ordered -Continue Norvasc and Hydrochlorothiazide 4. Diabetes mellitus type 2 -Hemoglobin A1c 9.7 -Patient started on Levemir 25 units BID which is 1/2 of his home dose. Will titrate up as appropriate -ACHS fingersticks with sliding scale insulin 4. DVT prophylaxis -Heparin subcutaneous DISPOSITION: ARU screen placed. Discharge is pending on culture data and resolution of EDOUARD VS, I&O, 24H, Fishbone Vital Signs/I&O Vital Signs Date Time Temp Pulse Resp B/P (MAP) Pulse Ox O2 Delivery O2 Flow Rate FiO2 09/23/19 08:10 56 170/66 09/23/19 05:48 99.1 18 98 Room Air 09/21/19 17:30 2.0 I&O- Last 24 Hours up to 6 AM 09/23/19 06:00 Intake Total 1050 ml Output Total 2175 ml Balance -1125 ml Laboratory Data 24H LABS Laboratory Tests 2 09/22/19 11:07: Vancomycin Level Trough 28.1*H 09/22/19 11:46: Bedside Glucose (Misc Panel) 212H 09/22/19 16:35: Bedside Glucose (Misc Panel) 162H 09/22/19 19:57: Bedside Glucose (Misc Panel) 125H 09/23/19 06:02: Nucleated Red Blood Cells % (auto) 0.0, Anion Gap 7L, Glomerular Filtration Rate 50.6, Calcium Level 7.9L, Magnesium Level 2.0 CBC/BMP Laboratory Tests 09/23/19 06:02 Microbiology Microbiology 09/20/19 Blood Culture - Preliminary, Resulted No Growth after 48 hours. All Specime... 09/20/19 Blood Culture - Preliminary, Resulted No Growth after 48 hours. All Specime... ROS HARRIS DO Sep 23, 2019 11:19
[2019-09-23] MEDS ORDERED: HEPA100I9 IV ×2 (14:40)
[2019-09-23] MEDS ORDERED: ZOSY3INJ2 IV (14:40)
[2019-09-23] MEDS ORDERED: PERCOCET PO (14:40)
[2019-09-23] MEDS ORDERED: SLF IV ×2 (14:40)
[2019-09-23] MEDS ORDERED: VANC1INJ37 IV (14:40)
[2019-09-23 14:45] VITALS: BP 144/72
--- NOTE | 2019-09-23 14:51 | DS.PDOC ---
Discharge Summary General Date of Admission Sep 20, 2019 at 16:39 Date of Discharge 09/23/19 Attending Physician: NAGA DOMNIGUEZ MD Specialist/Consultants Involve: ARPITA GALINDO DPM Discharge Summary PROCEDURES PERFORMED DURING STAY: Left Second Toe amputation; Right arm PICC line placement ADMITTING DIAGNOSES: 1. Left diabetic foot ulcer, complicated w/ osteomyelitis and left foot cellulitis 2. Hypertension 3. DMII DISCHARGE DIAGNOSES: 1. Left diabetic foot ulcer, complicated w/ osteomyelitis and left foot cellulitis 2. Hypertension 3. DMII 4. Acute Kidney Injury COMPLICATIONS/CHIEF COMPLAINT: Diabetic Infection Of Left Foot. 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 Patient stated that he had developed an ulcer on his left second toe approximately 6 months ago. He stated that he did not think much of it. Over the course of the past 6 months he stated that the ulcer worsened and his toe started to become black. About 3 days ago his left 2nd toe fell off. He then developed a throbbing pain and redness in his left foot which prompted him to come to the ER as he was having difficulty with ambulation. He denied any fevers or chills. He denied nausea or vomiting. In the ER the patient was found to be vitally stable. He was hypertensive. He had a mild leukocytosis of 12.0 and elevations of both ESR and CRP. Foot X-ray was obtained with read pending. He was given a normal saline bolus and a dose of vancomycin and zosyn. Patient was seen by Podiatry in the ER with plans to take the patient to the OR for amputation of the left 2nd toe. Hospitalist service was consulted and the patient was admitted for further evaluation and management HOSPITAL COURSE: During the patients hospitalization he received amputation of his left second toe by podiatry. The patient was continued on broad spectrum antibiotics. He did develop an acute kidney injury likely secondary to increased Vancomycin trough. The patient received IV hydration. He was evaluated by PT and subsequently discharged to ARU for ongoing rehabilitation. Patient will need fo llow-up on bone cultures in order to tailor antibiotic therapy. Follow-up on CRP. Additionally patient will need follow-un Cr to ensure resolution of EDOUARD DISCHARGE MEDICATIONS: Please see below. ALLERGIES: Please see below. PHYSICAL EXAMINATION ON DISCHARGE: VITAL SIGNS: Please see below. GENERAL APPEARANCE: Awake, alert, oriented, appears in no acute distress. Lying in bed comfortably HEENT:, Atraumatic, normocephalic. Eyes are nonicteric. Trachea is midline CARDIOVASCULAR: Normal S1, S2, regular rate and rhythm. No clicks, rubs or murmurs. LUNGS:. Clear vesicular breath sounds bilaterally. Good respiratory effort. No wheezes, rhonchi or rales. ABDOMEN:. Soft, nondistended, nontender, no rebound tenderness or guarding. Normoactive bowel sounds throughout. EXTREMITIES: 1-2+ pitting edema bilateral lower extremities. Right foot with amputation of digits 2 through 5. Left foot with bandage applied. Dressing is without oozing or drainage NEUROLOGICAL:. No focal neurological deficits. PSYCHIATRIC: Mood and affect appear appropriate for situation. LABORATORY DATA: Please see below. IMAGING: REASON: Toe pain. COMPARISON: Presurgical exam, 09/24/2018. Since the last exam, there has been surgical excision of the distal aspect of the 2nd digit with only the base of the middle phalanx remaining. There are degenerative changes seen involving the foot, status quo. There is dorsal soft tissue swelling. I see no definite evidence of an acute fracture. IMPRESSION: Findings as described above. If osteomyelitis is a clinical concern, then pre- and post-gadolinium enhanced MRI is recommended. Electronically Signed by Clvois Geronimo DO 09/22/2019 03:14 P DD: Clovis Geronimo MD, DO 09/22/19 0848 Procedure: PICC line insertion with Rosalino The procedure was performed under the direct supervision of Dr. Dover. The risks and benefits of the procedure were explained to the patient and informed consent was obtained. The right brachial vein was localized using ultrasound guidance. The skin was prepped and draped in a sterile fashion. 2% lidocaine was used as a local anesthetic. Using ultrasound guidance the brachial vein was cannulated and a 0.018 guidewire was inserted and advanced to the SVC using fluoroscopic guidance. The needle was removed and a 4.5 [place] dilator and peel-away sheath was inserted over the guide wire. A 4.5 [place] single lumen catheter was cut to length of 43 cm. The dilator was removed and the catheter was inserted over the guide wire with the tip ending in the SVC. The peel-away sheath was removed and the catheter was flushed with heparinized saline as per Hospital protocol. The catheter was affixed to the skin and a sterile dressing was applied. The patient tolerated the procedure well and there were no immediate complications. 0.1 minutes of fluoro time was utilized for this procedure. Electronically Signed by HERBERT Cantrell 09/22/2019 04:17 P Electronically Signed by Hayes Dover MD 09/22/2019 09:24 P PROGNOSIS: Fair ACTIVITY: [As tolerated]. DIET: Consistent Carbohydrate DISCHARGE PLAN: Patient is to be discharged to ARU for ongoing rehabilitation. He is to continue Vancomycin and Zosyn until culture data is available and antibiotics can be de-escalated. Regarding his EDOUARD this AM patient is to have repeat BMP tomorrow to assess resolution of his EDOUARD. Given his EDOUARD the patients home lisinopril should be held until his EDOUARD resolves. Patient is to follow-up with CRP to ensure his infection is improving. DISPOSITION: . ITEMS TO FOLLOWUP ON ON OUTPATIENT: 1. BMP to assess renal function returning to baseline 2. CRP to assess antibiotic effectiveness 3. Bone Cultures for antibiotic de-escalation DISCHARGE CONDITION: [Stable]. TIME SPENT ON DISCHARGE: Greater than 35 minutes. Vital Signs/I&Os Vital Signs Date Time Temp Pulse Resp B/P (MAP) Pulse Ox O2 Delivery O2 Flow Rate FiO2 09/23/19 08:10 56 170/66 09/23/19 05:48 99.1 18 98 Room Air 09/21/19 17:30 2.0 I&O- Last 24 Hours up to 6 AM 09/23/19 06:00 Intake Total 1050 ml Output Total 2175 ml Balance -1125 ml Laboratory Data Labs 24H Laboratory Tests 2 09/22/19 16:35: Bedside Glucose (Misc Panel) 162H 09/22/19 19:57: Bedside Glucose (Misc Panel) 125H 09/23/19 06:02: Nucleated Red Blood Cells % (auto) 0.0, Anion Gap 7L, Glomerular Filtration Rate 50.6, Calcium Level 7.9L, Magnesium Level 2.0 09/23/19 10:48: Urine Color YELLOW, Urine Appearance CLEAR, Urine pH 6.0, Urine Specific [place] 1.009, Urine Protein 2+H, Urine Glucose (Auto)(UA) NEGATIVE, Urine Ketones (Auto) NEGATIVE, Urine Blood NEGATIVE, Urine Nitrite NEGATIVE, Urine Bilirubin NEGATIVE, Urine Urobilinogen 4.0H, Urine Leukocyte Esterase (Auto) NEGATIVE, Urine WBC (Auto) 1, Urine RBC (Auto) 1, Urine Hyaline Casts (Auto) 1, Urine Bacteria (Auto) 1+H, Urine Squamous Epithelial Cells 0, Urine Sperm (Auto) 09/23/19 11:52: Bedside Glucose (Misc Panel) 117H CBC/BMP Laboratory Tests 09/23/19 06:02 FSBS Laboratory Tests Test 09/22/19 16:35 09/22/19 19:57 09/23/19 11:52 Range/Units Bedside Glucose (Misc Panel) 162 125 117 80-115 MG/DL Microbiology Microbiology 09/20/19 Blood Culture - Preliminary, Resulted No Growth after 72 hours. All specime... 09/20/19 Blood Culture - Preliminary, Resulted No Growth after 72 hours. All specime... Discharge Medications Scheduled Amlodipine Besylate (Amlodipine Besylate) 10 Mg Tablet, 10 MG PO DAILY, (Reported) Furosemide (Furosemide) 40 Mg Tablet, 40 MG PO DAILY, (Reported) Heparin Sodium,Porcine/Pf (Heparin 300 Unit/3 ml (100/ml)) 300 Unit/3 Ml Syringe, 200 UNITS IV PICC Hydrochlorothiazide (Hydrochlorothiazide) 25 Mg Tablet, 25 MG PO DAILY, (Reported) Insulin Detemir (Levemir) 100 Unit/1 Ml Vial, 40 UNITS SC QAM, (Reported) Insulin Detemir (Levemir) 100 Unit/1 Ml Vial, 70 UNITS SC QHS, (Reported) Linagliptin (Tradjenta) 5 Mg Tablet, 5 MG PO DAILY, (Reported) Lisinopril (Lisinopril) 40 Mg Tablet, 40 MG PO DAILY, (Reported) Metformin HCl (Metformin HCl) 1,000 Mg Tablet, 1,000 MG PO BID, (Reported) Piperacillin Sodium/Tazobactam (Zosyn 3.375 Gram Vial) 3.375 Gm Vial, 1 INJ IV Q6H Potassium Chloride (Potassium Chloride) 20 Meq Tab.er.prt, 20 MEQ PO DAILY, (Reported) Saline Lock Flush (Sodium Chloride) 10 Ml Vial, 10 ML IV PICC Simvastatin (Zocor) 80 Mg Tablet, 80 MG PO DAILY, (Reported) Vancomycin/0.9 % Sod Chloride (Vanco 500 mg/100 ml-0.9% NaCl) 500 Mg/100 Ml Froz.piggy, 1 INJ IV Q24H Scheduled PRN Heparin Sodium,Porcine/Pf (Heparin 300 Unit/3 ml (100/ml)) 300 Unit/3 Ml Syringe, 200 UNITS IV ASDIRECTED PRN for SEE LABEL COMMENTS Oxycodone/Acetaminophen (Oxycodone-Acetaminophen 5-325) 1 Each Tablet, 1 TAB PO Q6HP PRN for MILD/MODERATE PAIN (PS 1-7) Saline Lock Flush (Sodium Chloride) 10 Ml Vial, 10 ML IV ASDIRECTED PRN for SEE LABEL COMMENTS Allergies Coded Allergies: No Known Allergies (Verified , 03/05/19) ROS HARRIS DO Sep 23, 2019 14:51
--- NOTE | 2019-09-23 18:29 | IPN ---
DATE OF SERVICE: 09/23/2019 Patient seen and examined. States his toe is a little sore. No other complaints. Vital signs are reviewed. Maximum temperature (T max) is 100. Most recent was 99.1. Labs are reviewed. White blood cell count 7.2. His recent CRP was 13.9. Blood cultures have shown no growth. LOWER EXTREMITY EXAMINATION: Amputation site without extending erythema. Sutures are intact without signs of dehiscence. ASSESSMENT: A 68-year-old male with diabetic ulcerations, status post left 2nd toe amputation. PLAN: Once the patient is stable, he should be able to be discharged to home on oral antibiotics for 2 weeks coverage; would give him Bactrim DS. Patient has followup with me in 2 weeks.
== END 2019-09-23 16:20 | DRG 256 ==
LOC: M ED 12:51 → M ED INP 16:39 → ENRESERV 18:20 → M MS5PR 19:15
PROVIDERS: ADMIT Internal Medicine; ATTEND Internal Medicine
PROC: 02HV33Z Insertion of Infusion Device into Superior Vena Cava, Percutaneous Approach (ICD-10-PCS; 2019-09-22)
PROC: 0Y6S0Z0 Detachment at Left 2nd Toe, Complete, Open Approach (ICD-10-PCS; principal; 2019-09-22 14:30)
DX: E11.52 Type 2 diabetes mellitus with diabetic peripheral angiopathy with gangrene (principal); L03.116 Cellulitis of left lower limb; N17.9 Acute kidney failure, unspecified; M86.172 Other acute osteomyelitis, left ankle and foot; E11.621 Type 2 diabetes mellitus with foot ulcer; I12.9 Hypertensive chronic kidney disease with stage 1 through stage 4 chronic kidney disease, or unspecified chronic kidney disease; L97.529 Non-pressure chronic ulcer of other part of left foot with unspecified severity; E11.319 Type 2 diabetes mellitus with unspecified diabetic retinopathy without macular edema; N18.3 Chronic kidney disease, stage 3 (moderate); H40.9 Unspecified glaucoma; Z89.422 Acquired absence of other left toe(s); Z79.899 Other long term (current) drug therapy; Z87.891 Personal history of nicotine dependence; E11.21 Type 2 diabetes mellitus with diabetic nephropathy; E78.5 Hyperlipidemia, unspecified

== ENCOUNTER 2019-09-23 15:34 | Inpatient (IN) | payer MEDICARE, OTHER ==
[~2019-09-23] VITALS: Ht 175.3 cm; Wt 90.3 kg
[~2019-09-23 15:34] MED LIST changes: +HEPA100I9 IV; +POTA20TA6 PO; +SLF IV; +VANC1INJ37 IV; +ZOSY3INJ2 IV
[2019-09-23 16:27] VITALS: BP 186/80
[2019-09-23] MEDS ORDERED: **hydrALAZINE HCL** 25 MG TAB PO ONE (17:15)
[2019-09-23] MEDS ORDERED: oxyCODONE 5MG TAB PO PRN (17:30)
[2019-09-23] MEDS ORDERED: HEPARIN SOD (PORCINE) 5000UNITS/ML VIAL (J1644 PER 1000UNITS) SC SCH (17:30)
[2019-09-23] MEDS ORDERED: BISACODYL 10 MG SUPP PR PRN (17:30)
[2019-09-23] MEDS: **hydrALAZINE HCL** 25 MG TAB PO SCH ×2 (18:00→23:09)
[2019-09-23] MEDS: IPRATROPIUM 0.5MG/ALBUTEROL 2.5MG INH SOL UD 3ML (DUONEB) NEB SCH (19:21)
[2019-09-23 21:00] VITALS: BP 165/82
[2019-09-23] MEDS: REMEDY PHYTOPLEX Z-GUARD PASTE 113GM TUBE (FROM STOREROOM PRODUCT) TOP SCH (21:00)
[2019-09-23] MEDS: DOCUSATE SODIUM 100 MG CAP PO SCH (22:33)
[2019-09-23] MEDS: SENNA 8.6 MG TAB (SENOKOT) PO SCH (22:33)
[2019-09-23] MEDS: LACTOBACILLUS ACIDOPHILUS CAP (BACID) PO SCH (22:33)
[2019-09-23] MEDS: ACETAMINOPHEN 500 MG TAB PO SCH (22:34)
[2019-09-23] MEDS: HEPARIN SOD (PORCINE) 5000UNITS/ML VIAL (J1644 PER 1000UNITS) SC SCH (22:34)
[2019-09-23] MEDS: PIPERACILLIN/TAZOBACTAM SOD 3.375 GM in D5W MINI-BAG PLUS 50 ML IV SCH (22:34)
[2019-09-23 23:00] VITALS: BP 180/80
[2019-09-23] MEDS ORDERED: VANCOMYCIN INTERMITTENT/PULSE DOSING BY CLINICAL PHARMACIST PER DOSING PROTOCOL XX SCH (23:30)
[2019-09-24] VITALS (9 sets, daily range): BP systolic 142–180; BP diastolic 64–82
[2019-09-24] MEDS ORDERED: ONDANSETRON 4 MG TAB PO PRN (01:00)
[2019-09-24] MEDS ORDERED: GLUCOSE 4GM CHEW TABLET PO PRN (01:00)
[2019-09-24] MEDS ORDERED: GLUCAGON INJ 1MG VIAL SC PRN (01:00)
[2019-09-24] MEDS ORDERED: DEXTROSE 50% 50 ML SYRINGE IV PRN (01:00)
[2019-09-24] MEDS: PIPERACILLIN/TAZOBACTAM SOD 3.375 GM in D5W MINI-BAG PLUS 50 ML IV SCH ×4 (02:59→22:19)
[2019-09-24] MEDS: HEPARIN SOD (PORCINE) 5000UNITS/ML VIAL (J1644 PER 1000UNITS) SC SCH ×3 (05:43→22:17)
[2019-09-24] MEDS: **hydrALAZINE HCL** 25 MG TAB PO SCH ×3 (05:43→17:11)
[2019-09-24] MEDS: IPRATROPIUM 0.5MG/ALBUTEROL 2.5MG INH SOL UD 3ML (DUONEB) NEB SCH ×3 (06:12→19:12)
[2019-09-24 08:38] LABS: BASO # 0.1 10^3/uL (0.0-0.2); EOS # 0.3 10^3/uL (0.0-0.5); EOS % 4.1 % (0.0-3.0); HEMATOCRIT 33.6 % (42.0-52.0); HEMOGLOBIN 10.8 g/dl (13.5-17.5); LYMPH # 1.3 10^3/uL (1.5-5.0); LYMPH % 18.4 % (24.0-44.0); MEAN CORPUSCULAR HEMOGLOBIN 28.5 pg (27.0-33.0); MEAN CORPUSCULAR HGB CONC 32.1 g/dl (32.0-36.5); MEAN CORPUSCULAR VOLUME 88.7 fl (80.0-96.0); MONO # 0.7 10^3/uL (0.0-0.8); MONO % 10.5 % (0.0-5.0); NEUTROPHILS # 4.6 10^3/uL (1.5-8.5); NEUTROPHILS % 65.4 % (36.0-66.0); PLATELET COUNT, AUTOMATED 203 10^3/uL (150-450); RED BLOOD COUNT 3.79 10^6/uL (4.30-6.10); WHITE BLOOD COUNT 7.1 10^3/uL (4.0-10.0)
[2019-09-24] MEDS: hydroCHLOROthiazide 25 MG TAB PO SCH (08:59)
[2019-09-24] MEDS: SIMVASTATIN 20 MG TAB PO SCH (08:59)
[2019-09-24] MEDS: POTASSIUM CHLORIDE 10 MEQ SR TABLET PO SCH (09:00)
[2019-09-24] MEDS: DOCUSATE SODIUM 100 MG CAP PO SCH ×2 (09:00→21:00)
[2019-09-24] MEDS: REMEDY PHYTOPLEX Z-GUARD PASTE 113GM TUBE (FROM STOREROOM PRODUCT) TOP SCH ×3 (09:00→21:00)
[2019-09-24] MEDS ORDERED: VANCOMYCIN HCL 500 MG in IV FLUID PLACE HOLDER 1 EA IV SCH (09:00)
[2019-09-24] MEDS: amLODIPine 10 MG TAB PO SCH (09:00)
[2019-09-24] MEDS: ACETAMINOPHEN 500 MG TAB PO SCH ×3 (09:00→22:18)
[2019-09-24] MEDS: LACTOBACILLUS ACIDOPHILUS CAP (BACID) PO SCH ×3 (09:00→22:18)
[2019-09-24] MEDS: PANTOPRAZOLE 40MG TAB (PROTONIX) PO SCH (09:00)
[2019-09-24] MEDS: HumaLOG INSULIN (NovoLOG) PER UNIT SC SCH ×4 (09:01→22:17)
[2019-09-24 09:03] LABS: ALBUMIN 1.9 GM/DL (3.2-5.2); BILIRUBIN,TOTAL 0.4 MG/DL (0.2-1.0); CALCIUM LEVEL 8.3 MG/DL (8.8-10.2); CREATININE FOR GFR 1.8 MG/DL (0.70-1.30); POTASSIUM SERUM 3.5 MEQ/L (3.5-5.1); TOTAL PROTEIN 6.2 GM/DL (6.4-8.2)
[2019-09-24] MEDS ORDERED: **hydrALAZINE HCL** 25 MG TAB PO ONE (10:15)
[2019-09-24] MEDS: SODIUM CHLORIDE 0.9% INJ 10 ML SYR IV PRN (10:22)
--- NOTE | 2019-09-24 11:32 | IPNPDOC ---
Text Note Date of Service The patient was seen on 09/24/19. NOTE SUBJECTIVE: Feels good this am . still has some swelling of the left foot . No fever or chills. PHYSICAL EXAMINATION: VITAL SIGNS: Please see below. GENERAL APPEARANCE: Awake, alert, oriented, appears in no acute distress. Lying in bed comfortably HEENT:, Atraumatic, normocephalic. Eyes are nonicteric. Trachea is midline CARDIOVASCULAR: Normal S1, S2, regular rate and rhythm. No clicks, rubs or murmurs. LUNGS:. Clear vesicular breath sounds bilaterally. Good respiratory effort. No wheezes, rhonchi or rales. ABDOMEN:. Soft, nondistended, nontender, no rebound tenderness or guarding. Normoactive bowel sounds throughout. EXTREMITIES: Trace edema. Right foot with amputation of digits 2 through 5. Left foot with second toe amputation. NEUROLOGICAL: No focal neurological deficits. PSYCHIATRIC: Mood and affect appear appropriate for situation. LABORATORY DATA, IMAGING STUDIES, MICROBIOLOGY: Please see below. Labs and radiology: reviewed. ASSESSMENT AND PLAN: Patient is a 68 year old male with poorly controlled diabetes ,Proliferative Retinopathy 2/2 uncontrolled DMII, CKD Stage 3 , Hypertension, Glaucoma Peripheral Artery Disease with h/o left leg stent placement, Chronic Diabetic foot ulcers resulting in auto-amputation of the right 2nd-5th toes, BPH s/p turp who was admitted to [facility] with left foot cellulitis , osteomyelitis and autoamputation of the left second toe who was taken by Podiatry for amputation of 2nd toe. e was managed with zosyn and vancomycin for his cellulitis and diabetic foot ulcer and OM. He was evaluated by PT and OT in hospital an was felt that he was functioning belw hs usual level and needed continued rehab so was transferred to ARU. Left toe diabetic foot ulcer, complicated with osteomyelitis and left foot cellulitis Patient is s/p amputation of his left second toe due to osteomyelitis. Patient is continued on Vancomycin and Zosyn pending bone culture results. He has a right arm PICC line in place Patient is pending culture data. Will deescalate antibiotics once culture data available. Followed by [facility] Needs total 2 weeks of antibiotics. Acute Kidney Injury on CKD 3 EDOUARD likely secondary to increased vancomycin trough previously Hold lisinopril. Hypertension Lisinopril on HOLD. continue norvasc, hydralazine Diabetes mellitus type 2 with PVD, retinopathy Hemoglobin A1c 9.7 levemir and lispro DVT prophylaxis in place. VS,Fishbone, I+O VS, Fishbone, I+O Laboratory Tests 09/24/19 08:21 Vital Signs Date Time Temp Pulse Resp B/P (MAP) Pulse Ox O2 Delivery O2 Flow Rate FiO2 09/24/19 10:49 178/74 09/24/19 10:48 75 09/24/19 06:00 97.3 18 98 Room Air I&O- Last 24 Hours up to 6 AM 09/24/19 06:00 Intake Total 960 ml Output Total 1350 ml Balance -390 ml NICHO CARRILLO MD Sep 24, 2019 11:32
--- NOTE | 2019-09-24 12:32 | HPEPDOC ---
[id number] Tank Crewman Note DATE OF ADMISSION: 09-23-19 DATE OF SERVICE: 09-23-19 TIME OF ADMISSION: Please refer to physician's admission order. SOURCE OF ADMISSION INFORMATION: [facility] record and patient CHIEF COMPLAINT: left toe amputation in setting of DM-peripheral polyneuropathy HISTORY OF PRESENT ILLNESS: 68M pmh DM with peripheral polyneuropathy, CKD3, HTN, glaucoma, PVD with multiple auto-amputation for his right toes and diabetic foot ulcers presented to [facility] ED on 09-20-19 with left 2nd toe wound. He was found to have a necrotic toe with leukocytosis and elevated inflammatory markers. He was evaluated by podiatry who performed an amputation on 09-21-19 and started on IV antibiotics. He developed EDOUARD and was given IVF and had his DAMARIS-I held. Bone biopsy pathology revealed, Portion of toe showing ulcer with marked acute and chronic inf lammation. The acute inflammation extends to the underlying bone and surrounds some bony trabeculae, consistent with osteomyelitis. He was evaluated by therapy, noted to have impairments n ADLs and mobility and deemed medically appropriate for discharge to ARU on 09-23-19. REVIEW OF SYSTEMS: The following is a completed review of systems and has been reviewed. Review of systems otherwise unremarkable. PAIN: Patient self reports no pain EYES: No recent vision changes EARS, NOSE, & THROAT:No throat pain, or dysphagia, or rhinorrhea CARDIOVASCULAR: Denies chest pain or palpitations PULMONARY: Denies shortness of breath GASTROINTESTINAL: Denies constipation/diarrhea GENITOURINARY: denies dysuria MUSCULOSKELETAL: generalized weakenss NEUROLOGICAL: +peripheral polyneuropathy HEMATOLOGICAL: denies easy bruising SKIN: left D2 amputation incision, scattered LE excoriations PSYCHIATRIC: Unremarkable All other review of systems found to be negative. PAST MEDICAL HISTORY: as per HPI PAST SURGICAL HISTORY: Ventral hernia repair, TURP, Penile prosthesis repair, left leg stent ALLERGIES: Please see below. MEDICATIONS: Please see below. FAMILY HISTORY:DM SOCIAL HISTORY: Ex-smoker, no etoh/illicit drugs DIET: consistent carb PHYSICAL EXAMINATION: VITAL SIGNS: Please see below. GENERAL: Pleasant and cooperative. No acute distress. HEENT: PERRL. Extraocular movements intact. Clear conjunctiva CARDIOVASCULAR: Regular rate and rhythm. No murmurs, rubs, or gallops LUNGS: Clear to auscultation bilaterally. No wheezes. No rhonchi ABDOMEN: Soft, nontender, nondistended. Positive bowel sounds. Normal active bowel sounds NEUROLOGICAL: Alert and oriented to self only, Cranial nerves II through XII grossly intact. Sensation decreased to light touch bilat LE in stocking pattern EXTREMITIES: 5\5 strength bilateral upper extremities. 4\5 strength right lower extremity. 4/5 strength in left lower extremity. SKIN: right foot with D2-D5 distal phalangeal amputations, left D2 amputation incision site with sutures, mild erythema no induration or drainage LABORATORY DATA: Please see below. IMAGING: Imaging documentation personally reviewed by record FUNCTIONAL STATUS: Premorbid: Mod-Independent with all activities of daily life as well as mobility On Admission: Contact guard ambulation x 15 feet, contact guard mod assist for functional transfers GOALS: Mod-I community distances, functional transfers, bathing, dressing, toileting ASSESSMENT:68-year-old M with past medical history of PVD and DM who presents status post left PLAN: 1. Rehab- PT/OT advance gait and ADLs, strengthen/stretch/maintain ROM all 4 limbs 2. Neuro- patient with possible signs of dementia, will consider PHOTOGRAPH FINISHER eval for cog -peripheral polyneuropathy due to DM contributing to overall mobility impairment 3. Cardiac- HTN c/u Amlodipine, DAMARIS on hold due to EDOUARD, c/u HCTZ, will add hydralazine with holding parameters -medicine consulted to assist in overall management 4. Resp: encourage incentive spirometry, monitor for infection 5. ID: left toe osteomyelitis s/p amputation, c/u IV Zosyn and Vancomycin, monitor CRP, will d/c home on oral antibiotics at later date -Bacid 6. GI ppx: Protonix 7. DVT ppx: Heparin 8. Pain- tylenol and oxycodone 9. Endo- pmh DM c/u Levemir and ISS 10. Renal- EDOUARD on CKD, patient receiving IVF recheck bmp tomorrow, c/u to hold DAMARIS-I 11. Dispo: TBD POST ADMISSION PHYSICIAN EVALUATION: Medical and functional status: Description of medical status, medical assessment: As above. Rehabilitation diagnosis and current and prior cold morbid medical conditions as above. Risk of complications and plans to mitigate them as above. Description of functional status current status is as above. Prior status as above. Status compared to preadmission: There are no clinically significant differences between the patient's current status and the information described on the preadmission screening document. Treatment plan anticipated: Treatment plan is as described above. Required disciplines including physical therapy, occupational therapy, others as noted ab ove. Intensity of services: 3 hours a day, 6 days a week. Special considerations: There are no specific special or safety considerations that would likely preclude immediate implementation of an intensive rehabilitation program or subsequently influence the plan of care ATTESTATION: Considering all the information above, it is my best judgment that this patient requires intensive rehabilitation therapy as described above and an inpatient hospital environment due to the complexity of nursing, medical, and rehabilitation needs required by the patient. Furthermore, this patient can reasonably be expected to participate in an benefit from an inpatient rehabilitation stay with an interdisciplinary team approach to the delivery of rehabilitation care under the direction and supervision of rehabilitation physician] PROGNOSIS: good ESTIMATED LENGTH OF STAY:7-10 days. PROJECTED DISCHARGE DESTINATION: Home with family support and any durable medical equipment required to increase functional safety and mobility. TIME SPENT COUNSELING AND COORDINATING INITIAL CARE: Greater than 70 minutes. Vital Signs Vital Sign - Last 24 Hours 09/23/19 09/23/19 09/23/19 09/23/19 16:27 17:43 21:00 23:00 Temp 98.7 100.1 Pulse 67 77 74 Resp 18 18 B/P (MAP) 186/80 (115) 180/87 165/82 (109) 180/80 (113) Pulse Ox 94 93 O2 Delivery Room Air Room Air 09/23/19 09/24/19 09/24/19 09/24/19 23:09 00:48 05:43 06:00 Temp 97.3 Pulse 74 69 Resp 18 B/P (MAP) 180/80 170/70 (103) 180/82 180/82 (114) Pulse Ox 98 O2 Delivery Room Air 09/24/19 09/24/19 09/24/19 09:00 10:48 10:49 Pulse 69 75 B/P (MAP) 180/82 178/74 (108) 178/74 Laboratory Data CBC/BMP Laboratory Tests 09/24/19 08:21 Labs 24H Laboratory Tests 2 09/23/19 19:28: Vancomycin Level Trough 25.4*H 09/23/19 21:51: Bedside Glucose (Misc Panel) 213H 09/24/19 00:41: Bedside Glucose (Misc Panel) 268H 09/24/19 06:01: Bedside Glucose (Misc Panel) 198H 09/24/19 08:21: Immature Granulocyte % (Auto) 0.6, Neutrophils (%) (Auto) 65.4, Lymphocytes (%) (Auto) 18.4L, Monocytes (%) (Auto) 10.5H, Eosinophils (%) (Auto) 4.1H, Basophils (%) (Auto) 1.0, Neutrophils # (Auto) 4.6, Lymphocytes # (Auto) 1.3L, Monocytes # (Auto) 0.7, Eosinophils # (Auto) 0.3, Basophils # (Auto) 0.1, Nucleated Red Blood Cells % (auto) 0.0, Anion Gap 9, Glomerular Filtration Rate 40.0L, Calcium Level 8.3L, Total Bilirubin 0.4, Aspartate Amino Transf (AST/SGOT) 15, Alanine Aminotransferase (ALT/SGPT) 12, Alkaline Phosphatase 86, Total Protein 6.2L, Albumin 1.9L, Albumin/Globulin Ratio 0.4, Random Vancomycin Level 18.4 09/24/19 11:34: Bedside Glucose (Misc Panel) 253H FSBS Laboratory Tests Test 09/23/19 21:51 09/24/19 00:41 09/24/19 06:01 09/24/19 11:34 Range/Units Bedside Glucose (Misc Panel) 213 268 198 253 80-115 MG/DL Home Medications Scheduled Amlodipine Besylate (Amlodipine Besylate) 10 Mg Tablet, 10 MG PO DAILY, (Reported) Furosemide (Furosemide) 40 Mg Tablet, 40 MG PO DAILY, (Reported) Heparin Sodium,Porcine/Pf (Heparin 300 Unit/3 ml (100/ml)) 300 Unit/3 Ml Syringe, 200 UNITS IV PICC Hydrochlorothiazide (Hydrochlorothiazide) 25 Mg Tablet, 25 MG PO DAILY, (Reported) Insulin Detemir (Levemir) 100 Unit/1 Ml Vial, 40 UNITS SC QAM, (Reported) Insulin Detemir (Levemir) 100 Unit/1 Ml Vial, 70 UNITS SC QHS, (Reported) Linagliptin (Tradjenta) 5 Mg Tablet, 5 MG PO DAILY, (Reported) Lisinopril (Lisinopril) 40 Mg Tablet, 40 MG PO DAILY, (Reported) Metformin HCl (Metformin HCl) 1,000 Mg Tablet, 1,000 MG PO BID, (Reported) Piperacillin Sodium/Tazobactam (Zosyn 3.375 Gram Vial) 3.375 Gm Vial, 1 INJ IV Q6H Potassium Chloride (Potassium Chloride) 20 Meq Tab.er.prt, 20 MEQ PO DAILY, (Reported) Saline Lock Flush (Sodium Chloride) 10 Ml Vial, 10 ML IV PICC Simvastatin (Zocor) 80 Mg Tablet, 80 MG PO DAILY, (Reported) Vancomycin/0.9 % Sod Chloride (Vanco 500 mg/100 ml-0.9% NaCl) 500 Mg/100 Ml Froz.piggy, 1 INJ IV Q24H Scheduled PRN Heparin Sodium,Porcine/Pf (Heparin 300 Unit/3 ml (100/ml)) 300 Unit/3 Ml Syringe, 200 UNITS IV ASDIRECTED PRN for SEE LABEL COMMENTS Oxycodone/Acetaminophen (Oxycodone-Acetaminophen 5-325) 1 Each Tablet, 1 TAB PO Q6HP PRN for MILD/MODERATE PAIN (PS 1-7) Saline Lock Flush (Sodium Chloride) 10 Ml Vial, 10 ML IV ASDIRECTED PRN for SEE LABEL COMMENTS Allergies Coded Allergies: No Known Allergies (Verified , 03/05/19) A-FIB/CHADSVASC A-FIB History Current/History of A-Fib/PAF?: No COLLIN BULLOCK MD Sep 24, 2019 12:32
--- NOTE | 2019-09-24 12:37 | IPNPDOC ---
PM&R Progress Note DATE OF SERVICE: Sep 24, 2019 Application Support Administrator Progress Note Subjective: Patient reporting he feels well today and has no pain. REVIEW OF SYSTEMS: The following is a completed review of systems and has been reviewed. Review of systems otherwise unremarkable. PAIN: Patient self reports no pain EYES: No recent vision changes EARS, NOSE, & THROAT:No throat pain, or dysphagia, or rhinorrhea CARDIOVASCULAR: Denies chest pain or palpitations PULMONARY: Denies shortness of breath GASTROINTESTINAL: Denies constipation/diarrhea GENITOURINARY: denies dysuria MUSCULOSKELETAL: generalized weakness NEUROLOGICAL: +peripheral polyneuropathy HEMATOLOGICAL: denies easy bruising SKIN: left D2 amputation incision, scattered LE excoriations PSYCHIATRIC: Unremarkable All other review of systems found to be negative. PHYSICAL EXAMINATION: VITAL SIGNS: Please see below. GENERAL: Pleasant and cooperative. No acute distress. HEENT: PERRL. Extraocular movements intact. Clear conjunctiva CARDIOVASCULAR: Regular rate and rhythm. No murmurs, rubs, or gallops LUNGS: Clear to auscultation bilaterally. No wheezes. No rhonchi ABDOMEN: Soft, nontender, nondistended. Positive bowel sounds. Normal active bowel sounds NEUROLOGICAL: Alert and oriented to self only, Cranial nerves II through XII grossly intact. Sensation decreased to light touch bilat LE in stocking pattern EXTREMITIES: 5\5 strength bilateral upper extremities. 4\5 strength right lower extremity. 4/5 strength in left lower extremity. SKIN: right foot with D2-D5 distal phalangeal amputations, left D2 amputation incision site with sutures, mild erythema no induration or drainage ASSESSMENT:68-year-old M with past medical history of PVD and DM who presents status post left PLAN: 1. Rehab- PT/OT advance gait and ADLs, strengthen/stretch/maintain ROM all 4 timmons bs 2. Neuro- patient with possible signs of dementia, will consider VIDEO COORDINATOR eval for cog -peripheral polyneuropathy due to DM contributing to overall mobility impairment 3. Cardiac- HTN c/u Amlodipine, DAMARIS on hold due to EDOUARD, c/u HCTZ, c/u hydralazine (increased from 25-->50mg q6h) with holding parameters -medicine consulted to assist in overall management 4. Resp: encourage incentive spirometry, monitor for infection 5. ID: left toe osteomyelitis s/p amputation, c/u IV Zosyn and Vancomycin, monitor CRP, will d/c home on oral antibiotics at later date -Bacid 6. GI ppx: Protonix 7. DVT ppx: Heparin 8. Pain- tylenol and oxycodone 9. Endo- pmh DM c/u Levemir and ISS 10. Renal- EDOUARD on CKD, patient received 1L however Vamp Creaser up to 1.8 from 1.47, will give one more Liter NS at 60cc/hr, c/u to hold DAMARIS-I 11. Dispo: TBD Allergies Coded Allergies: No Known Allergies (Verified , 03/05/19) Vital Signs Vital Signs Date Time Temp Pulse Resp B/P (MAP) Pulse Ox O2 Delivery O2 Flow Rate FiO2 09/24/19 10:49 178/74 09/24/19 10:48 75 09/24/19 06:00 97.3 18 98 Room Air Laboratory Data CBC/BMP Laboratory Tests 09/24/19 08:21 Labs 24H Laboratory Tests 2 09/23/19 19:28: Vancomycin Level Trough 25.4*H 09/23/19 21:51: Bedside Glucose (Misc Panel) 213H 09/24/19 00:41: Bedside Glucose (Misc Panel) 268H 09/24/19 06:01: Bedside Glucose (Misc Panel) 198H 09/24/19 08:21: Immature Granulocyte % (Auto) 0.6, Neutrophils (%) (Auto) 65.4, Lymphocytes (%) (Auto) 18.4L, Monocytes (%) (Auto) 10.5H, Eosinophils (%) (Auto) 4.1H, Basophils (%) (Auto) 1.0, Neutrophils # (Auto) 4.6, Lymphocytes # (Auto) 1.3L, Monocytes # (Auto) 0.7, Eosinophils # (Auto) 0.3, Basophils # (Auto) 0.1, Nucleated Red Blood Cells % (auto) 0.0, Anion Gap 9, Glomerular Filtration Rate 40.0L, Calcium Level 8.3L, Total Bilirubin 0.4, Aspartate Amino Transf (AST/SGOT) 15, Alanine Aminotransferase (ALT/SGPT) 12, Alkaline Phosphatase 86, Total Protein 6.2L, Albumin 1.9L, Albumin/Globulin Ratio 0.4, Random Vancomycin Level 18.4 09/24/19 11:34: Bedside Glucose (Misc Panel) 253H Current Medications Current Medications Current Medications Medications (Trade) Dose Ordered Sig/Armando Route PRN Reason Start Time Stop Time Status Last Admin Dose Admin Acetaminophen (Tylenol Tab) 1,000 mg TID PO 09/23/19 21:00 09/24/19 09:00 Albuterol/ Ipratropium (Duoneb (Ipr 0.5mg/Alb 2.5mg)) 3 ml RTID NEB 09/23/19 20:00 09/24/19 06:12 Amlodipine Besylate (Norvasc) 10 mg DAILY PO 09/24/19 09:00 09/24/19 09:00 Bisacodyl (Dulcolax Suppository) 10 mg DAILYPRN PRN ND CONSTIPATION 09/23/19 17:30 Dextrose (Dextrose 50%) 25 ml ASDIRECTED PRN IV SEE LABEL COMMENTS 09/24/19 01:00 Docusate Sodium (Colace) 100 mg BID PO 09/23/19 21:00 09/24/19 09:00 Glucagon (Glucagon) 1 mg ASDIRECTED PRN SC SEE LABEL COMMENTS 09/24/19 01:00 Glucose (Glucose) 16 GM ASDIRECTED PRN PO SEE LABEL COMMENTS 09/24/19 01:00 Heparin Sodium (Heparin (Flush)) 200 units ASDIRECTED PRN IV SEE LABEL COMMENTS 09/24/19 10:15 09/24/19 10:22 Heparin Sodium (Heparin (Flush)) 200 units PICC IV 09/24/19 18:00 Heparin Sodium (Porcine) (Heparin) 5,000 units Q8H SC 09/23/19 17:30 09/23/19 18:22 DC Heparin Sodium (Porcine) (Heparin) 5,000 units Q8H SC 09/23/19 22:00 09/24/19 05:43 Hydralazine HCl (Apresoline) 25 mg Q6H PO 09/23/19 18:00 09/24/19 10:10 DC 09/24/19 05:43 Hydralazine HCl (Apresoline) 50 mg Q6H PO 09/24/19 12:00 Hydrochlorothiazide (Hydrodiuril) 25 mg DAILY PO 09/24/19 09:00 09/24/19 08:59 Insulin Human Lispro (HumaLOG INSULIN) SEE PROTOCOL TABLE AC SC 09/24/19 07:30 09/24/19 09:01 Insulin Human Lispro (HumaLOG INSULIN) SEE PROTOCOL TABLE QHS SC 09/24/19 21:00 Lactobacillus Acidophilus (Bacid) 1 ea TID PO 09/23/19 21:00 09/24/19 09:00 Non-Formulary Medication ( See Comment Field Below ) VANCO INTERMIT. DOSING ASDIRECTED XX 09/23/19 23:30 Ondansetron HCl (Zofran) 4 mg Q8HP PRN PO NAUSEA OR VOMITING 09/24/19 01:00 Oxycodone HCl (Roxicodone, Oxyir) 5 mg Q4HP PRN PO PAIN 09/23/19 17:30 Pantoprazole Sodium (Protonix) 40 mg DAILY PO 09/24/19 09:00 09/24/19 09:00 Piperacillin Sod/ Tazobactam Sod 3.375 gm/Dextrose 50 ml @ 50 mls/hr Q6H IV 09/23/19 21:00 10/07/19 15:59 09/24/19 08:59 Potassium Chloride (Micro-K Extencaps) 20 meq DAILY PO 09/24/19 09:00 09/24/19 09:00 Senna (Senokot) 1 tab QHS PO 09/23/19 21:00 09/23/19 22:33 Simvastatin (Zocor) 20 mg DAILY PO 09/24/19 09:00 09/24/19 08:59 Sodium Chloride (Saline Lock Flush) 10 ml ASDIRECTED PRN IV SEE LABEL COMMENTS 09/24/19 10:15 09/24/19 10:22 Sodium Chloride (Saline Lock Flush) 10 ml PICC IV 09/24/19 18:00 Vancomycin HCl 500 mg/IV Miscellaneous Supplies 10 ml @ 10 mls/hr Q24H IV 09/24/19 09:00 09/23/19 23:29 COLLIN LOCKE MD Sep 24, 2019 12:36
[2019-09-24] MEDS: LEVEMIR (INSULIN DETEMIR) 1 UNITS/0.01ML SC SCH ×2 (12:43→22:16)
[2019-09-24] MEDS ORDERED: NS 1,000 ML IV ONE (12:45)
[2019-09-24] MEDS ORDERED: VANCOMYCIN HCL 1,000 MG, VIAL MATE ADAPTER 1 EACH in D5W 250 ML IV ONE (16:00)
[2019-09-24] MEDS: SODIUM CHLORIDE 0.9% INJ 10 ML SYR IV SCH (17:12)
[2019-09-24] MEDS: SENNA 8.6 MG TAB (SENOKOT) PO SCH (21:00)
[2019-09-25] MEDS: **hydrALAZINE HCL** 25 MG TAB PO SCH ×5 (00:20→23:46)
[2019-09-25] MEDS: PIPERACILLIN/TAZOBACTAM SOD 3.375 GM in D5W MINI-BAG PLUS 50 ML IV SCH ×4 (03:35→22:09)
[2019-09-25 06:00] VITALS: BP 154/70
[2019-09-25] MEDS: HEPARIN SOD (PORCINE) 5000UNITS/ML VIAL (J1644 PER 1000UNITS) SC SCH ×3 (06:34→22:09)
[2019-09-25 07:07] LABS: CALCIUM LEVEL 7.9 MG/DL (8.8-10.2); CREATININE FOR GFR 1.79 MG/DL (0.70-1.30); GLOMERULAR FILTRATION RATE 40.3 (>49); POTASSIUM SERUM 3.9 MEQ/L (3.5-5.1)
[2019-09-25] MEDS: IPRATROPIUM 0.5MG/ALBUTEROL 2.5MG INH SOL UD 3ML (DUONEB) NEB SCH ×3 (07:14→20:00)
[2019-09-25] MEDS: SODIUM CHLORIDE 0.9% INJ 10 ML SYR IV SCH ×2 (08:08→17:45)
[2019-09-25] MEDS: LEVEMIR (INSULIN DETEMIR) 1 UNITS/0.01ML SC SCH ×2 (08:54→22:09)
[2019-09-25] MEDS: HumaLOG INSULIN (NovoLOG) PER UNIT SC SCH ×4 (08:54→21:00)
[2019-09-25] MEDS: DOCUSATE SODIUM 100 MG CAP PO SCH ×2 (08:55→21:00)
[2019-09-25] MEDS: SIMVASTATIN 20 MG TAB PO SCH (08:55)
[2019-09-25] MEDS: amLODIPine 10 MG TAB PO SCH (08:55)
[2019-09-25] MEDS: POTASSIUM CHLORIDE 10 MEQ SR TABLET PO SCH (08:55)
[2019-09-25] MEDS: PANTOPRAZOLE 40MG TAB (PROTONIX) PO SCH (08:55)
[2019-09-25] MEDS: LACTOBACILLUS ACIDOPHILUS CAP (BACID) PO SCH ×3 (08:55→22:08)
[2019-09-25] MEDS: ACETAMINOPHEN 500 MG TAB PO SCH ×3 (08:56→22:08)
[2019-09-25] MEDS: hydroCHLOROthiazide 25 MG TAB PO SCH (08:56)
[2019-09-25] MEDS: REMEDY PHYTOPLEX Z-GUARD PASTE 113GM TUBE (FROM STOREROOM PRODUCT) TOP SCH ×3 (08:58→21:00)
[2019-09-25] MEDS ORDERED: FLUBLOK(EGG FREE)(QUAD)INFLUENZA VACC 0.5ML SYRINGE 18YRS & OLDER IM ONE (09:00)
[2019-09-25 14:00] VITALS: BP 166/72
[2019-09-25] MEDS: SODIUM CHLORIDE 0.9% INJ 10 ML SYR IV PRN (15:24)
[2019-09-25] MEDS ORDERED: VANCOMYCIN HCL 1,000 MG, VIAL MATE ADAPTER 1 EACH in D5W 250 ML IV SCH (18:00)
[2019-09-25 20:00] VITALS: BP 142/69
[2019-09-25] MEDS: SENNA 8.6 MG TAB (SENOKOT) PO SCH (21:00)
[2019-09-26] MEDS: PIPERACILLIN/TAZOBACTAM SOD 3.375 GM in D5W MINI-BAG PLUS 50 ML IV SCH ×2 (03:03→08:15)
[2019-09-26 06:00] VITALS: BP 186/79
[2019-09-26] MEDS: **hydrALAZINE HCL** 25 MG TAB PO SCH ×3 (06:33→18:02)
[2019-09-26] MEDS: SODIUM CHLORIDE 0.9% INJ 10 ML SYR IV SCH ×2 (06:40→18:00)
[2019-09-26] MEDS: HEPARIN SOD (PORCINE) 5000UNITS/ML VIAL (J1644 PER 1000UNITS) SC SCH ×3 (06:40→21:31)
[2019-09-26] MEDS: IPRATROPIUM 0.5MG/ALBUTEROL 2.5MG INH SOL UD 3ML (DUONEB) NEB SCH ×3 (07:33→19:51)
[2019-09-26 08:07] LABS: BASO # 0.1 10^3/uL (0.0-0.2); BASO % 1.5 % (0.0-1.0); EOS # 0.5 10^3/uL (0.0-0.5); EOS % 6.5 % (0.0-3.0); HEMOGLOBIN 10.6 g/dl (13.5-17.5); LYMPH # 1.4 10^3/uL (1.5-5.0); LYMPH % 19.4 % (24.0-44.0); MEAN CORPUSCULAR HEMOGLOBIN 28.7 pg (27.0-33.0); MEAN CORPUSCULAR HGB CONC 32.1 g/dl (32.0-36.5); MEAN CORPUSCULAR VOLUME 89.4 fl (80.0-96.0); MONO # 0.7 10^3/uL (0.0-0.8); MONO % 9.8 % (0.0-5.0); NEUTROPHILS # 4.4 10^3/uL (1.5-8.5); PLATELET COUNT, AUTOMATED 282 10^3/uL (150-450); RED BLOOD COUNT 3.69 10^6/uL (4.30-6.10); WHITE BLOOD COUNT 7.1 10^3/uL (4.0-10.0)
[2019-09-26] MEDS: LACTOBACILLUS ACIDOPHILUS CAP (BACID) PO SCH ×3 (08:14→21:32)
[2019-09-26] MEDS: ACETAMINOPHEN 500 MG TAB PO SCH ×3 (08:14→21:32)
[2019-09-26] MEDS: amLODIPine 10 MG TAB PO SCH (08:15)
[2019-09-26] MEDS: POTASSIUM CHLORIDE 10 MEQ SR TABLET PO SCH (08:15)
[2019-09-26] MEDS: SIMVASTATIN 20 MG TAB PO SCH (08:15)
[2019-09-26] MEDS: PANTOPRAZOLE 40MG TAB (PROTONIX) PO SCH (08:16)
[2019-09-26] MEDS: DOCUSATE SODIUM 100 MG CAP PO SCH ×2 (08:16→21:32)
[2019-09-26] MEDS: hydroCHLOROthiazide 25 MG TAB PO SCH (08:16)
[2019-09-26] MEDS: LEVEMIR (INSULIN DETEMIR) 1 UNITS/0.01ML SC SCH ×2 (08:17→21:31)
[2019-09-26] MEDS: REMEDY PHYTOPLEX Z-GUARD PASTE 113GM TUBE (FROM STOREROOM PRODUCT) TOP SCH ×3 (08:17→21:00)
[2019-09-26] MEDS: HumaLOG INSULIN (NovoLOG) PER UNIT SC SCH ×4 (08:17→21:00)
[2019-09-26 08:33] LABS: CALCIUM LEVEL 8.5 MG/DL (8.8-10.2); CREATININE FOR GFR 1.87 MG/DL (0.70-1.30); GLOMERULAR FILTRATION RATE 38.3 (>49); POTASSIUM SERUM 3.9 MEQ/L (3.5-5.1)
--- NOTE | 2019-09-26 12:19 | IPNPDOC ---
Text Note Date of Service The patient was seen on 09/26/19. NOTE SUBJECTIVE: Patient seen and examined at bedside. Yesterday he wanted to leave AMA, but was easily persuaded to stay to finish his medical therapy. Today he has no medical complaints, no acute overnight events reported. Objective: PHYSICAL EXAMINATION: VITAL SIGNS: Please see below. GENERAL APPEARANCE: Awake, alert, oriented, appears in no acute distress. Lying in bed comfortably HEENT:, Atraumatic, normocephalic. Eyes are nonicteric. Trachea is midline CARDIOVASCULAR: Normal S1, S2, regular rate and rhythm. No clicks, rubs or murmurs. LUNGS:. Clear vesicular breath sounds bilaterally. Good respiratory effort. No wheezes, rhonchi or rales. ABDOMEN:. Soft, nondistended, nontender, no rebound tenderness or guarding. Normoactive bowel sounds throughout. EXTREMITIES: Trace edema. Right foot with amputation of digits 2 through 5. Left foot with second toe amputation. NEUROLOGICAL: No focal neurological deficits. PSYCHIATRIC: Mood and affect appear appropriate for situation. Labs and radiology: reviewed. ASSESSMENT AND PLAN: Patient is a 68 year old male with poorly controlled diabetes ,Proliferative Retinopathy 2/2 uncontrolled DMII, CKD Stage 3 , Hypert ension, Glaucoma , PAD with h/o left leg stent placement, Chronic Diabetic foot ulcers resulting in auto-amputation of the right 2nd-5th toes, BPH s/p turp who was admitted to [facility] with left foot cellulitis , osteomyelitis and autoamputation of the left second toe who was taken by Podiatry for amputation of 2nd toe. e was managed with zosyn and vancomycin for his cellulitis and diabetic foot ulcer and OM. He was evaluated by PT and OT and transferred to ARU. #Left toe diabetic foot ulcer, complicated with osteomyelitis and left foot cellulitis Patient is s/p amputation of his left second toe due to osteomyelitis. Patient is continued on Vancomycin and Zosyn pending bone culture results. He has a right arm PICC line in place Patient is pending culture data. Will deescalate antibiotics once culture data available. Followed by [facility] Needs total 2 weeks of antibiotics - transitioned to clindamycin #Acute Kidney Injury on CKD 3 EDOUARD likely secondary to increased vancomycin trough previously Hold lisinopril. - follow BMP #HTN Lisinopril on HOLD. continue norvasc, hydralazine #Diabetes mellitus type 2 with PVD, retinopathy Hemoglobin A1c 9.7 levemir and lispro #DVT prophylaxis in place. Dispo: anticipating discharge in 24-48 hours Collette WOODSON I+O Collette WOODSON I+O Laboratory Tests 09/26/19 07:38 Vital Signs Date Time Temp Pulse Resp B/P (MAP) Pulse Ox O2 Delivery O2 Flow Rate FiO2 09/26/19 11:57 160/62 09/26/19 08:15 64 09/26/19 06:00 97.7 18 95 Room Air I&O- Last 24 Hours up to 6 AM 09/26/19 05:59 Intake Total 1460 ml Output Total 2025 ml Balance -565 ml NAGA DOMINGUEZ MD Sep 26, 2019 12:18
[2019-09-26 14:00] VITALS: BP 173/69
[2019-09-26] MEDS: CLINDAMYCIN 150MG CAPSULE PO SCH ×2 (15:13→21:32)
[2019-09-26] MEDS ORDERED: CLINDAMYCIN 150MG CAPSULE PO SCH (16:00)
[2019-09-26 21:00] VITALS: BP 170/70
[2019-09-26] MEDS: SENNA 8.6 MG TAB (SENOKOT) PO SCH (21:32)
[2019-09-27] MEDS: **hydrALAZINE HCL** 25 MG TAB PO SCH ×5 (00:43→23:49)
[2019-09-27] MEDS: HEPARIN SOD (PORCINE) 5000UNITS/ML VIAL (J1644 PER 1000UNITS) SC SCH ×3 (05:59→21:00)
[2019-09-27] MEDS: SODIUM CHLORIDE 0.9% INJ 10 ML SYR IV SCH ×2 (06:00→17:43)
[2019-09-27 06:26] VITALS: BP 160/80
[2019-09-27] MEDS: IPRATROPIUM 0.5MG/ALBUTEROL 2.5MG INH SOL UD 3ML (DUONEB) NEB SCH ×3 (07:20→19:37)
[2019-09-27] MEDS: HumaLOG INSULIN (NovoLOG) PER UNIT SC SCH ×4 (07:52→21:00)
[2019-09-27] MEDS: PANTOPRAZOLE 40MG TAB (PROTONIX) PO SCH (07:53)
[2019-09-27] MEDS: LACTOBACILLUS ACIDOPHILUS CAP (BACID) PO SCH ×3 (07:53→21:00)
[2019-09-27] MEDS: LEVEMIR (INSULIN DETEMIR) 1 UNITS/0.01ML SC SCH ×2 (07:53→21:00)
[2019-09-27] MEDS: SIMVASTATIN 20 MG TAB PO SCH (07:53)
[2019-09-27] MEDS: ACETAMINOPHEN 500 MG TAB PO SCH ×3 (07:54→21:02)
[2019-09-27] MEDS: POTASSIUM CHLORIDE 10 MEQ SR TABLET PO SCH (07:54)
[2019-09-27] MEDS: amLODIPine 10 MG TAB PO SCH (07:55)
[2019-09-27] MEDS: CLINDAMYCIN 150MG CAPSULE PO SCH ×3 (07:55→21:02)
[2019-09-27] MEDS: REMEDY PHYTOPLEX Z-GUARD PASTE 113GM TUBE (FROM STOREROOM PRODUCT) TOP SCH ×3 (07:55→21:00)
[2019-09-27] MEDS: DOCUSATE SODIUM 100 MG CAP PO SCH ×2 (07:55→21:00)
[2019-09-27 08:14] LABS: CALCIUM LEVEL 8.7 MG/DL (8.8-10.2); CREATININE FOR GFR 1.65 MG/DL (0.70-1.30); GLOMERULAR FILTRATION RATE 44.3 (>49)
--- NOTE | 2019-09-27 13:26 | IPNPDOC ---
Text Note Date of Service The patient was seen on 09/27/19. NOTE SUBJECTIVE: Patient seen and examined at bedside. No acute overnight events. He notes polyluria, but otherwise no medical complaints. Objective: PHYSICAL EXAMINATION: VITAL SIGNS: Please see below. GENERAL APPEARANCE: Awake, alert, oriented, appears in no acute distress. Lying in bed comfortably HEENT:, Atraumatic, normocephalic. Eyes are nonicteric. Trachea is midline CARDIOVASCULAR: Normal S1, S2, regular rate and rhythm. No clicks, rubs or murmurs. LUNGS:. Clear vesicular breath sounds bilaterally. Good respiratory effort. No wheezes, rhonchi or rales. ABDOMEN:. Soft, nondistended, nontender, no rebound tenderness or guarding. Normoactive bowel sounds throughout. EXTREMITIES: Trace edema. Right foot with amputation of digits 2 through 5. Left foot with second toe amputation. NEUROLOGICAL: No focal neurological deficits. PSYCHIATRIC: Mood and affect appear appropriate for situation. Labs and radiology: reviewed. ASSESSMENT AND PLAN: Patient is a 68 year old male with poorly controlled diabetes ,Proliferative Retinopathy 2/2 uncontrolled DMII, CKD Stage 3 , Hypertension, Glaucoma , PAD with h/o left leg stent placement, Chronic Diabetic foot ulcers resulting in auto-amputation of the right 2nd-5th toes, BPH s/p turp who was admitted to [facility] with left foot cellulitis , osteomyelitis and autoamputation of the left second toe who was taken by Podiatry for amputation of 2nd toe. e was managed with zosyn and vancomycin for his cellulitis and diabetic foot ulcer and OM. He was evaluated by PT and OT and transferred to ARU. #Left toe diabetic foot ulcer, complicated with osteomyelitis and left foot cellulitis Patient is s/p amputation of his left second toe due to osteomyelitis. Patient is continued on Vancomycin and Zosyn pending bone culture results. He has a right arm PICC line in place Patient is pending culture data. Will deescalate antibiotics once culture data available. Followed by [facility] Needs total 2 weeks of antibiotics - transitioned to clindamycin #Acute Kidney Injury on CKD 3 EDOUARD likely secondary to increased vancomycin trough previously Hold lisinopril. - follow BMP - improving - given polyuria - check UA, consider imaging #HTN Lisinopril on HOLD. continue norvasc, hydralazine #Diabetes mellitus type 2 with PVD, retinopathy Hemoglobin A1c 9.7 levemir and lispro #DVT prophylaxis in place. Dispo: anticipating discharge in 24-48 hours Collette WOODSON, I+O VSCollette I+O Laboratory Tests 09/27/19 07:29 Vital Signs Date Time Temp Pulse Resp B/P (MAP) Pulse Ox O2 Delivery O2 Flow Rate FiO2 09/27/19 12:47 160/72 09/27/19 07:55 65 09/27/19 06:26 98.8 18 97 Room Air I&O- Last 24 Hours up to 6 AM 09/27/19 05:59 Intake Total 720 ml Output Total 775 ml Balance -55 ml NAGA DOMINGUEZ MD Sep 27, 2019 13:26
[2019-09-27 14:00] VITALS: BP 135/63
--- NOTE | 2019-09-27 16:52 | REPVR ---
PROCEDURE INFORMATION: Exam: US Retroperitoneal Limited, Kidneys Exam date and time: 09/27/2019 4:25 PM Age: 68 years old Clinical indication: Abnormal findings; Abnormal lab test; Abnormal kidney function lab tests; Additional info: Federico TECHNIQUE: Imaging protocol: Real-time ultrasound of the retroperitoneum with image documentation. Examination was focused on the kidneys. COMPARISON: CT ABD PELVIS W/O FOL BY WIT 05/08/2014 4:22 PM FINDINGS: Right kidney: 11.6 cm in length. No stones. No hydronephrosis. Left kidney: 12 cm in length. No stones. No hydronephrosis. Bladder: Decompressed urinary bladder, which limits evaluation. IMPRESSION: No acute sonographic findings. Electronically signed by: Stephen Javier On 09/27/2019 16:52:40 PM
[2019-09-27 20:31] VITALS: BP 160/70
[2019-09-27] MEDS: SENNA 8.6 MG TAB (SENOKOT) PO SCH (21:02)
[2019-09-28] MEDS: SODIUM CHLORIDE 0.9% INJ 10 ML SYR IV SCH ×2 (05:28→17:40)
[2019-09-28] MEDS: HEPARIN SOD (PORCINE) 5000UNITS/ML VIAL (J1644 PER 1000UNITS) SC SCH ×3 (05:28→21:05)
[2019-09-28] MEDS: **hydrALAZINE HCL** 25 MG TAB PO SCH ×3 (05:32→21:05)
[2019-09-28 06:00] VITALS: BP 200/78
[2019-09-28 06:35] VITALS: BP 150/70
[2019-09-28 07:05] LABS: HEMATOCRIT 35.1 % (42.0-52.0); HEMOGLOBIN 11.6 g/dl (13.5-17.5); MEAN CORPUSCULAR HEMOGLOBIN 29.5 pg (27.0-33.0); MEAN CORPUSCULAR VOLUME 89.3 fl (80.0-96.0); PLATELET COUNT, AUTOMATED 344 10^3/uL (150-450); RED BLOOD COUNT 3.93 10^6/uL (4.30-6.10); WHITE BLOOD COUNT 7.9 10^3/uL (4.0-10.0)
[2019-09-28] MEDS: IPRATROPIUM 0.5MG/ALBUTEROL 2.5MG INH SOL UD 3ML (DUONEB) NEB SCH ×3 (07:26→19:52)
[2019-09-28 07:33] LABS: CALCIUM LEVEL 8.9 MG/DL (8.8-10.2); CREATININE FOR GFR 1.82 MG/DL (0.70-1.30); GLOMERULAR FILTRATION RATE 39.5 (>49)
[2019-09-28] MEDS: LEVEMIR (INSULIN DETEMIR) 1 UNITS/0.01ML SC SCH ×2 (08:19→21:06)
[2019-09-28] MEDS: HumaLOG INSULIN (NovoLOG) PER UNIT SC SCH ×4 (08:19→21:00)
[2019-09-28] MEDS: ACETAMINOPHEN 500 MG TAB PO SCH ×3 (08:19→21:06)
[2019-09-28] MEDS: DOCUSATE SODIUM 100 MG CAP PO SCH ×3 (08:19→21:06)
[2019-09-28] MEDS: SIMVASTATIN 20 MG TAB PO SCH (08:19)
[2019-09-28] MEDS: amLODIPine 10 MG TAB PO SCH (08:20)
[2019-09-28] MEDS: LACTOBACILLUS ACIDOPHILUS CAP (BACID) PO SCH ×3 (08:20→21:06)
[2019-09-28] MEDS: CLINDAMYCIN 150MG CAPSULE PO SCH ×3 (08:20→21:06)
[2019-09-28] MEDS: POTASSIUM CHLORIDE 10 MEQ SR TABLET PO SCH (08:20)
[2019-09-28] MEDS: PANTOPRAZOLE 40MG TAB (PROTONIX) PO SCH (08:20)
[2019-09-28] MEDS: REMEDY PHYTOPLEX Z-GUARD PASTE 113GM TUBE (FROM STOREROOM PRODUCT) TOP SCH ×3 (08:21→21:00)
[2019-09-28 14:00] VITALS: BP 158/68
[2019-09-28 20:00] VITALS: BP 180/70
[2019-09-28] MEDS: SENNA 8.6 MG TAB (SENOKOT) PO SCH (21:05)
[2019-09-28 21:13] VITALS: BP 160/80
[2019-09-29] MEDS: **hydrALAZINE HCL** 25 MG TAB PO SCH ×2 (05:06→12:01)
[2019-09-29] MEDS: SODIUM CHLORIDE 0.9% INJ 10 ML SYR IV SCH (05:06)
[2019-09-29] MEDS: HEPARIN SOD (PORCINE) 5000UNITS/ML VIAL (J1644 PER 1000UNITS) SC SCH (05:06)
[2019-09-29 05:09] VITALS: BP 180/82
[2019-09-29] MEDS: IPRATROPIUM 0.5MG/ALBUTEROL 2.5MG INH SOL UD 3ML (DUONEB) NEB SCH (08:00)
[2019-09-29 08:03] LABS: CALCIUM LEVEL 8.9 MG/DL (8.8-10.2); CREATININE FOR GFR 1.84 MG/DL (0.70-1.30); POTASSIUM SERUM 4.3 MEQ/L (3.5-5.1)
[2019-09-29] MEDS: DOCUSATE SODIUM 100 MG CAP PO SCH (09:00)
[2019-09-29] MEDS: REMEDY PHYTOPLEX Z-GUARD PASTE 113GM TUBE (FROM STOREROOM PRODUCT) TOP SCH (09:00)
[2019-09-29 09:28] VITALS: BP 175/77
[2019-09-29] MEDS: SIMVASTATIN 20 MG TAB PO SCH (09:30)
[2019-09-29] MEDS: CLINDAMYCIN 150MG CAPSULE PO SCH (09:30)
[2019-09-29] MEDS: LACTOBACILLUS ACIDOPHILUS CAP (BACID) PO SCH (09:30)
[2019-09-29] MEDS: POTASSIUM CHLORIDE 10 MEQ SR TABLET PO SCH (09:31)
[2019-09-29] MEDS: PANTOPRAZOLE 40MG TAB (PROTONIX) PO SCH (09:31)
[2019-09-29] MEDS: amLODIPine 10 MG TAB PO SCH (09:31)
[2019-09-29] MEDS: ACETAMINOPHEN 500 MG TAB PO SCH (09:31)
[2019-09-29] MEDS: HumaLOG INSULIN (NovoLOG) PER UNIT SC SCH ×2 (09:32→12:02)
[2019-09-29] MEDS: LEVEMIR (INSULIN DETEMIR) 1 UNITS/0.01ML SC SCH (09:32)
[2019-09-29] MEDS ORDERED: HYDR25TA PO (11:09)
[2019-09-29] MEDS ORDERED: AMLO10TA5 PO (11:09)
[2019-09-29] MEDS ORDERED: SIMV20TA22 PO (11:09)
[2019-09-29] MEDS ORDERED: RISATAB3 PO (11:09)
[2019-09-29] MEDS ORDERED: KLOR10TA76 PO (11:09)
[2019-09-29] MEDS ORDERED: INSUDET SC (11:09)
[2019-09-29] MEDS ORDERED: CLIN150C14 PO (11:09)
[2019-09-29] MEDS ORDERED: ACET-683 PO (11:09)
[2019-09-29 11:52] VITALS: BP 170/80
[2019-09-29 12:01] VITALS: BP 170/80
--- NOTE | 2019-10-16 05:43 | PMRDS ---
DATE OF ADMISSION: 09/23/2019 DATE OF DISCHARGE: 09/29/2019 CHIEF COMPLAINT/DISCHARGE DIAGNOSIS: Left toe amputation in the setting of diabetic peripheral polyneuropathy. HISTORY OF PRESENT ILLNESS: 68M pmh DM with peripheral polyneuropathy, CKD3, HTN, glaucoma, PVD with multiple auto-amputation for his right toes and diabetic foot ulcers presented to [facility] ED on 09-20-19 with left 2nd toe wound. He was found to have a necrotic toe with leukocytosis and elevated inflammatory markers. He was evaluated by podiatry who performed an amputation on 09-21-19 and started on IV antibiotics. He developed EDOUARD and was given IVF and had his DAMARIS-I held. Bone biopsy pathology revealed, Portion of toe showing ulcer with marked acute and chronic inflammation. The acute inflammation extends to the underlying bone and surrounds some bony trabeculae, consistent with osteomyelitis. He was evaluated by therapy, noted to have impairments n ADLs and mobility and deemed medically appropriate for discharge to ARU on 09-23-19. PAST MEDICAL HISTORY: As per history of present illness (HPI). HOSPITAL COURSE: Patient was enrolled in a comprehensive physical therapy (PT)/occupational therapy (OT) program. He received 24-hour nursing supervision, and weekly team meetings were held to discuss his progress. Patient was maintained on amlodipine and hydrochlorothiazide for his hypertension, and hydralazine was added for high blood pressures with holding parameters during his hospital course. He finished a course of IV Zosyn and vancomycin and was discharged home on oral clindamycin. He made functional and speedy gains in therapy and was deemed medically and functionally safe to return home. DISCHARGE MEDICATIONS: As per instructions. FUNCTIONAL HISTORY: On discharge, patient was independent, able to ambulate 220 feet with a modified rolling walker. Thank you for this referral.
== END 2019-09-29 13:23 | disposition home or self-care (01) | DRG 300 ==
LOC: M PM&R 16:24
PROVIDERS: ADMIT Physical Medicine & Rehabilitation; ATTEND Physical Medicine & Rehabilitation
DX: E11.51 Type 2 diabetes mellitus with diabetic peripheral angiopathy without gangrene (principal); N17.9 Acute kidney failure, unspecified; L03.116 Cellulitis of left lower limb; Z89.421 Acquired absence of other right toe(s); Z89.422 Acquired absence of other left toe(s); E11.42 Type 2 diabetes mellitus with diabetic polyneuropathy; I12.9 Hypertensive chronic kidney disease with stage 1 through stage 4 chronic kidney disease, or unspecified chronic kidney disease; Z79.4 Long term (current) use of insulin; Z79.899 Other long term (current) drug therapy; H40.9 Unspecified glaucoma; E11.621 Type 2 diabetes mellitus with foot ulcer; N18.3 Chronic kidney disease, stage 3 (moderate); L97.529 Non-pressure chronic ulcer of other part of left foot with unspecified severity; E11.319 Type 2 diabetes mellitus with unspecified diabetic retinopathy without macular edema

== ENCOUNTER → 2019-11-10 | Outpatient (REF) | payer MEDICARE, OTHER ==
[~2019-11-10] MED LIST changes: +ACET-683 PO; -AMLO10TA5 PO; +AMLO1TAB25 PO; +HYDR25TA PO; +KLOR10TA76 PO; +RISATAB3 PO; +SIMV20TA22 PO
[2019-12-05 21:33] LABS: BASO # 0.1 10^3/uL (0.0-0.2); BASO % 2.1 % (0.0-1.0); EOS # 0.2 10^3/uL (0.0-0.5); EOS % 2.8 % (0.0-3.0); HEMATOCRIT 77.2 % (42.0-52.0); LYMPH # 2.1 10^3/uL (1.5-5.0); LYMPH % 34.2 % (24.0-44.0); MEAN CORPUSCULAR HEMOGLOBIN 28.1 pg (27.0-33.0); MEAN CORPUSCULAR HGB CONC 32.8 g/dl (32.0-36.5); MEAN CORPUSCULAR VOLUME 85.9 fl (80.0-96.0); MONO # 0.2 10^3/uL (0.0-0.8); MONO % 3.3 % (0.0-5.0); NEUTROPHILS # 3.5 10^3/uL (1.5-8.5); NEUTROPHILS % 57.3 % (36.0-66.0); RED BLOOD COUNT 8.99 10^6/uL (4.30-6.10); WHITE BLOOD COUNT 6.1 10^3/uL (4.0-10.0)
[2019-12-05 21:34] LABS: HEMOGLOBIN 25.3 g/dl (13.5-17.5)
[2019-12-12 11:06] LABS: HEMOGLOBIN A1c 11.6 %
[2020-01-15 10:35] LABS: GLUCOSE, FASTING SEE SEPARATE REPORT MG/DL (70-100)
== END ==
LOC: M LAB REF 08:54
PROVIDERS: ATTEND Family Medicine Addiction Medicine
DX: E11.65 Type 2 diabetes mellitus with hyperglycemia (principal); D63.8 Anemia in other chronic diseases classified elsewhere

== ENCOUNTER → 2019-12-19 | Outpatient (REF) | payer MEDICARE, OTHER ==
[2019-12-19 14:45] LABS: ALBUMIN 2.6 GM/DL (3.2-5.2); BILIRUBIN,TOTAL 0.4 MG/DL (0.2-1.0); CHOLESTEROL RISK RATIO 6.172 (<5); CREATININE FOR GFR 1.34 MG/DL (0.70-1.30); GLOMERULAR FILTRATION RATE 56.1 (>42); POTASSIUM SERUM 4.8 MEQ/L (3.5-5.1); THYROID STIMULATING HORMONE 2.53 uIU/ML (0.358-3.740); TOTAL PROTEIN 6.9 GM/DL (6.4-8.2)
[2019-12-19 15:58] LABS: HEMOGLOBIN A1c 11.1 %
== END ==
LOC: M LAB REF 12:20
PROVIDERS: ATTEND Family Medicine Addiction Medicine
DX: E11.65 Type 2 diabetes mellitus with hyperglycemia (principal)

== ENCOUNTER → 2020-02-05 | Outpatient (CLI) | payer MEDICARE, OTHER ==
--- NOTE | 2020-02-05 11:43 | REP ---
INDICATION: PAD peripheral atherosclerotic disease COMPARISON: 09/25/2018 TECHNIQUE: Real time dover scale and color Doppler evaluation of the bilateral lower extremity arterial vasculature using linear high frequency transducer. FINDINGS: Elevated blood pressures noted in the bilateral upper and lower extremities. Right DAVID: 0.85 Left DAVID: 1.0 Dover scale and color images demonstrate mild to moderate atheromatous plaquing with areas of minimal narrowing. Bilateral superficial femoral artery stents are appreciated and appear patent. 2:1 stenosis noted in the left popliteal artery. Doppler interrogation demonstrates bilateral biphasic arterial wave patterns to the popliteal level with subsequent monophasic wave patterns noted bilaterally. Peak systolic velocities (cm/sec) Common femoral artery: Right 152; Left 132 Profunda femoris: Right 101; Left 128 SFA (proximal): Right 145; Left 165 SFA (mid): Right 114; Left 142 SFA (distal): Right 97-150; Left 123-82 Popliteal artery: Right 108; Left 159-337 TALIA (prox.): Right 146; Left 62 Tibioperoneal trunk: Right 87; Left 117 BINDING PRINTER (prox.): Right 86; Left 86 BINDING PRINTER (distal): Right 44; Left 78 TALIA (distal): Right 45; Left 43 IMPRESSION: 1. Elevated blood pressures noted. 2. Atherosclerotic changes with findings as described above including patent bilateral superficial femoral artery stents and moderate stenosis through the left popliteal artery <Electronically signed by Ambrose Juan > 02/05/20 [id number]
== END ==
LOC: M RAD 08:42
PROVIDERS: ATTEND Physician Assistant
DX: I70.213 Atherosclerosis of native arteries of extremities with intermittent claudication, bilateral legs (principal); I70.235 Atherosclerosis of native arteries of right leg with ulceration of other part of foot; I87.2 Venous insufficiency (chronic) (peripheral)

== ENCOUNTER → 2020-02-27 | Outpatient (REF) | payer MEDICARE, OTHER ==
[2020-02-27 18:06] LABS: CALCIUM LEVEL 8.4 MG/DL (8.8-10.2); CREATININE FOR GFR 1.34 MG/DL (0.70-1.30); GLOMERULAR FILTRATION RATE 56.1 (>42); POTASSIUM SERUM 4.5 MEQ/L (3.5-5.1)
== END ==
LOC: M LAB REF 17:15
PROVIDERS: ATTEND Family Medicine Addiction Medicine
DX: Z23 Encounter for immunization (principal)

== ENCOUNTER → 2020-03-09 | Outpatient (CLI) | payer MEDICARE, OTHER ==
[~2020-03-09] MED LIST changes: +ACETAMINOPHEN TAB 650MG DOSE (2X325MG) PO PRN; +CALCIUM CARBONATE 500 MG CHEW U/D PO ONE; +HYDR-3910 PO; +HumaLOG INSULIN (NovoLOG) PER UNIT As Ordered ONE; +ISOVUE-300 61% 50ML VIAL As Ordered ONE; +LIDOCAINE 1% MDV 20ML VIAL As Ordered ONE; +MIDAZOLAM INJ 2MG/2ML VIAL (J2250 PER 1MG) As Ordered ONE; +NS 1,000 ML IV SCH; +ONDANSETRON 4MG/2ML VIAL IV PRN; +fentaNYL 100 MCG/2 ML INJECTION (J3010) As Ordered ONE; +hydrALAZINE 20MG/ML 1ML VIAL (J0360 PER 20MG) As Ordered ONE; +hydrALAZINE 20MG/ML 1ML VIAL (J0360 PER 20MG) IV ONE
[2020-03-09 07:04] LABS: HEMATOCRIT 43.1 % (42.0-52.0); HEMOGLOBIN 13.9 g/dl (13.5-17.5); MEAN CORPUSCULAR HEMOGLOBIN 28.4 pg (27.0-33.0); MEAN CORPUSCULAR HGB CONC 32.3 g/dl (32.0-36.5); PLATELET COUNT, AUTOMATED 275 10^3/uL (150-450); WHITE BLOOD COUNT 8.4 10^3/uL (4.0-10.0)
[2020-03-09 07:26] LABS: CREATININE FOR GFR 1.61 MG/DL (0.70-1.30); GLOMERULAR FILTRATION RATE 45.4 (>42); POTASSIUM SERUM 4.5 MEQ/L (3.5-5.1)
--- NOTE | 2020-03-09 09:54 | ROOPDOC ---
[facility] Report Of Operation Report of Operation DATE OF PROCEDURE: 03/09/20 PREPROCEDURE DIAGNOSES: Atherosclerosis in the habematolel arteries with nonhealing ulcer right toe POSTPROCEDURE DIAGNOSES: Same PROCEDURE: 1. Ultrasound-guided access left common femoral artery 2. Aortoiliofemoral arteriogram 3. Selection left common femoral and superficial femoral artery with left lower extremity runoff 4. Cross chronic total occlusion left posterior tibial artery and selection distal left posterior tibial artery with arteriogram 5. Angioplasty left superficial femoral and popliteal artery with 5 x 200 Mustan g balloon 6. Angioplasty left posterior tibial artery and plantar artery with 2.5 x 220 Candido balloon 7. Angioplasty left anterior tibial artery with 2.5 x 220 Candido balloon 8. Attempt to cross left peroneal artery occlusion, aborted 9. Completion arteriograms left lower extremity 10. Mynx closure right common femoral SURGEON: Chanel Mcclain MD ANESTHESIA: Local anesthesia 6 mL lidocaine. Moderate intravenous conscious sedation was supervised by Dr. Mcclain. The patient was independently mon itored by registered nurse assigned at the Department of radiology using automated blood pressure, EKG, and pulse oximetry. The details sedation record is permanently stored in the hospital information system. The following is a brief sedation record: Start time 07:52, stop time 08:56, Versed 1.5 mg IV, fentanyl 75 g IV, heparin 4000 units IV. CONTRAST: 41 mL Isovue-300 INDICATION FOR PROCEDURE: This is very pleasant 69-year-old patient with atherosclerosis of the habematolel arteries and a nonhealing wound of the right foot. Risks benefits and alternatives to an arteriogram potential intervention were explained to the patient needs agreeable to proceed. He does have some renal insufficiency, and we discussed with him that we would use as little dye is possible, and we did bring the patient in for hydration prior to this procedure with IV fluids, but there is no amount of IV dye that is 100% safe. The patient is aware of this and is okay to proceed. We will be very vigilant during the case to use as little dye is possible, plenty of IV fluids and flushes. Informed consent was obtained. INTERPRETATION: 1. The aortoiliac segments are very heavily calcified and ectatic but patent. No significant flow limiting stenoses noted in the bilateral common iliac, hypogastric, or external iliac arteries. There is a bit heavier plaque at the proximal common iliac arteries but it is not flow-limiting. 2. There is good flow through the right common femoral artery into the profunda. The SFA is patent proximally but there are some intermittent stenoses throughout the mid distal SFA stent and also the popliteal artery, between 20-60%. Distal to this, there is thready flow through the anterior tibial artery and posterior tibial artery, no flow noted in the peroneal artery. There is heavy calcification stenoses throughout both tibial vessels with limited runoff to the foot. 3. After angioplasty of the mid distal SFA stent for three-minute inflations, there was a widely patent flow through the stent with no significant flow limiting stenoses. No extravasation or embolization noted. 4. After crossing the chronic total occlusion and angioplasty of the entire post erior tibial artery into the plantar artery, there is widely patent flow through the posterior tibial artery on the left, no extravasation, embolization or dissection were noted. 5. After angioplasty of the left anterior tibial artery, there is widely patent flow through the foot with no dissection, embolization extravasation noted. 6. Aggressive attempts were made to cross the occluded left peroneal artery, but we were not able to cross due to dense calcified plaque 2 cm from the origin with a large collateral at the area. The wires and catheters consistently selected the collateral and did not cross through the heavy calcified plaque. No extravasation was noted after attempts to cross. 7. Completion arteriograms revealed widely patent two-vessel runoff to the foot with good flow to the distal foot. REPORT OF OPERATION: The patient was brought to the angiographic suite in stable condition. His bilateral groins were prepped and draped in a sterile fashion. A timeout was performed. Sedation was administered without complication. Local anesthesia was administered to the skin and subcutaneous tissue over the left common femoral artery. A microneedle was used to access the artery and her ultrasound guidance. A wire was passed to this access and the needle was rem cayla. A 4 Libyan sheath was placed and flushed with saline. Through this, a Glidewire and flushing catheter were advanced into the distal aorta under fluoroscopic guidance. An aortoiliofemoral arteriogram was performed. Please interpretation above. We then went up and over the bifurcation with the catheter in the Glidewire and selected the right common femoral artery and superficial femoral artery. Right lower extremity runoff was performed. Please interpretation above. We then advanced a Glidewire into the distal SFA and states that sheath for 6 x 45 cm destination sheath over the wire using a Seldinger technique and flushes sheath with saline. We crossed with the wire through to the distal popliteal artery and angioplasty to cross the popliteal artery and the distal SFA stent with a 5 x 200 [place] balloon for three-minute inflations. Following this there was no significant flow limiting stenoses remaining within the stents are within the popliteal artery. No dissections or embolizations were noted. Then exchanged the wire for an O18 Glidewire advantage and navigated this towards the posterior tibial artery origin. We were able to c ross the occlusion in the posterior tibial artery with a Kabetogama catheter. Once we're at the distal vessel, quick arteriogram confirmed we were in the 2 lm and there was runoff distally. We then angioplasty along the length of the vessel with a 2.5 x 220 Candido balloon for three-minute inflations. Following this there was widely patent inflow through to the foot. We then navigated the wire towards the anterior tibial artery and angioplasty along the length of the vessel with a 2.5 x 220 Candido balloon for three-minute inflations. Following this, there was widely patent two-vessel runoff to the foot with no significant residual stenoses, dissections embolizations or extravasation. We did spend quite a bit of time trying to cross through the peroneal artery. It was open for centimeter to proximally, but distal to this are was a heavy calcified plaque and just proximal to this there was a large collateral vessel. Despite our best efforts, all wires and catheters with selected large collateral rather than crop quantitative geneticist ss the calcified occlusion. After some time, we aborted this attempt to cross. Arteriogram confirmed there was no extravasation after our attempt across the vessel. We then exchanged the sheath over an O35 Glidewire for short 6 Libyan sheath and deployed a Mynx closure device under fluoroscopic guidance. Pressure was held and sterile dressings were applied after 10 minutes. Good hemostasis was noted. The patient was then taken to recovery in stable condition. He tolerated the procedure and the sedation well. He did have some hypertension in recovery, and several doses of hydralazine were used to treat his hypertension. ESTIMATED BLOOD LOSS: Approximately 5 mL. COMPLICATIONS: None. PLAN: We will see the patient back in a week to check his perfusion in his foot. He is okay to resume his home diet medications. No strenuous lifting or exercise for a week. We appreciate the opportunity to participate in the care of this patient. CHANEL MCCLAIN MD Mar 09, 2020 09:54
[2020-03-09] MEDS: hydrALAZINE 20MG/ML 1ML VIAL (J0360 PER 20MG) IV PRN ×4 (11:27→13:30)
[2020-03-09 13:30] VITALS: BP 177/77
[2020-03-09 14:00] VITALS: BP 170/74
== END ==
LOC: M IRPRO 06:12
PROVIDERS: ATTEND Surgery Vascular Surgery
DX: I70.235 Atherosclerosis of native arteries of right leg with ulceration of other part of foot (principal); L97.519 Non-pressure chronic ulcer of other part of right foot with unspecified severity; I70.92 Chronic total occlusion of artery of the extremities; I12.9 Hypertensive chronic kidney disease with stage 1 through stage 4 chronic kidney disease, or unspecified chronic kidney disease; E11.22 Type 2 diabetes mellitus with diabetic chronic kidney disease; N18.9 Chronic kidney disease, unspecified
CPT/HCPCS: 37224; 37228; 37232; 75630; 75774; 80048; 85027; 99152; 99153; C1725; C1729; C1760; C1769; C1887; C1894; J0360; J1644; J2250; J3010; Q9967

== ENCOUNTER → 2020-07-12 | Outpatient (REF) | payer MEDICARE, OTHER ==
[~2020-07-12] MED LIST changes: -ACETAMINOPHEN TAB 650MG DOSE (2X325MG) PO PRN; -CALCIUM CARBONATE 500 MG CHEW U/D PO ONE; -CLIN150C14 PO; +CLIN150C15 PO; -CLIN300C5 PO; +CLIN300C6 PO; +GABA-282 PO; -GABA-843 PO; +HYDR-3490 PO; -HYDR25TAB PO; -HumaLOG INSULIN (NovoLOG) PER UNIT As Ordered ONE; -ISOVUE-300 61% 50ML VIAL As Ordered ONE; -LIDOCAINE 1% MDV 20ML VIAL As Ordered ONE; -LISI40TA PO; +LISI40TA4 PO; -MIDAZOLAM INJ 2MG/2ML VIAL (J2250 PER 1MG) As Ordered ONE; +NAPR-849 PO; -NAPR250T4 PO; -NS 1,000 ML IV SCH; -ONDANSETRON 4MG/2ML VIAL IV PRN; -fentaNYL 100 MCG/2 ML INJECTION (J3010) As Ordered ONE; -hydrALAZINE 20MG/ML 1ML VIAL (J0360 PER 20MG) As Ordered ONE; -hydrALAZINE 20MG/ML 1ML VIAL (J0360 PER 20MG) IV ONE
[2020-07-12 13:58] LABS: CREATININE, URINE 88.6 MG/DL; MAU/CREAT RATIO 3137.6 MCG/MG (0.0-30.0)
[2020-07-12 18:20] LABS: HEMOGLOBIN A1c 12.7 %
[2020-07-12 19:31] LABS: ALBUMIN 2.5 GM/DL (3.2-5.2); BILIRUBIN,TOTAL 0.3 MG/DL (0.2-1.0); CALCIUM LEVEL 8.3 MG/DL (8.8-10.2); CHOLESTEROL RISK RATIO 6.181 (<5); CREATININE FOR GFR 1.44 MG/DL (0.70-1.30); GLOMERULAR FILTRATION RATE 51.6 (>42); POTASSIUM SERUM 4.6 MEQ/L (3.5-5.1); THYROID STIMULATING HORMONE 1.55 uIU/ML (0.358-3.740); TOTAL PROTEIN 6.3 GM/DL (6.4-8.2)
== END ==
LOC: M LAB REF 11:41
PROVIDERS: ATTEND Family Medicine Addiction Medicine
DX: E11.69 Type 2 diabetes mellitus with other specified complication (principal)

== ENCOUNTER 2020-10-27 11:24 | Emergency (ER) | payer MEDICARE, OTHER ==
[~2020-10-27] VITALS: Ht 175.3 cm; Wt 76.8 kg
[2020-10-27] MEDS ORDERED: HYDR-3490 PO (11:44)
[2020-10-27 12:09] LABS: BASO # 0.1 10^3/uL (0.0-0.2); BASO % 1.4 % (0.0-1.0); EOS # 0.3 10^3/uL (0.0-0.5); HEMATOCRIT 41.5 % (42.0-52.0); HEMOGLOBIN 13.6 g/dl (13.5-17.5); LYMPH # 1.8 10^3/uL (1.5-5.0); LYMPH % 28.6 % (24.0-44.0); MEAN CORPUSCULAR HEMOGLOBIN 28.5 pg (27.0-33.0); MEAN CORPUSCULAR HGB CONC 32.8 g/dl (32.0-36.5); MEAN CORPUSCULAR VOLUME 86.8 fl (80.0-96.0); MONO # 0.5 10^3/uL (0.0-0.8); MONO % 8.2 % (2.0-8.0); NEUTROPHILS # 3.6 10^3/uL (1.5-8.5); PLATELET COUNT, AUTOMATED 226 10^3/uL (150-450); RED BLOOD COUNT 4.78 10^6/uL (4.30-6.10); WHITE BLOOD COUNT 6.2 10^3/uL (4.0-10.0)
--- NOTE | 2020-10-27 12:12 | REP ---
INDICATION: CHEST PAIN. COMPARISON: 09/24/2018 a two view exam TECHNIQUE: Portable FINDINGS: The technique utilized in obtaining the radiograph has magnified the cardiac silhouette and accentuated the interstitial markings. Minimal patchy opacities may be developing in the right upper lobe. The lung hoffman are otherwise clear and stable. The pleural angles are sharp. The heart is not enlarged for the osseous structures stable. IMPRESSION: Possible minimal developing patchy right upper lobe opacities. Follow-up is suggested. <Electronically signed by Clovis Geronimo > 10/27/20 [id number]
[2020-10-27] MEDS ORDERED: HumuLIN R (REGULAR) INSULIN (NovoLIN R) **100U/ML** PER UNIT IV ONE (12:35)
[2020-10-27] MEDS ORDERED: **hydrALAZINE HCL** 25 MG TAB PO ONE (12:35)
[2020-10-27 12:37] LABS: CALCIUM LEVEL 9.4 MG/DL (8.8-10.2); CREATININE FOR GFR 1.61 MG/DL (0.70-1.30); GLOMERULAR FILTRATION RATE 45.4 (>42); POTASSIUM SERUM 3.6 MEQ/L (3.5-5.1)
[2020-10-27 14:16] LABS: HEMOGLOBIN A1c 13.7 %
[2020-10-27 16:35] VITALS: BP 182/86
--- NOTE | 2020-10-27 20:51 | ECGEPIP ---
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
--- NOTE | 2020-10-29 14:38 | ED PDOC ---
Post-Departure Follow-Up radiology report faxed to Mary Carmen Dubose MD Oct 29, 2020 14:38
== END 2020-10-27 16:46 | disposition home or self-care (01) ==
LOC: M ED 11:24 → EDBD 11:24 → M ED 16:46
DX: R07.89 Other chest pain (principal); E11.65 Type 2 diabetes mellitus with hyperglycemia; R00.1 Bradycardia, unspecified; I45.89 Other specified conduction disorders; I10 Essential (primary) hypertension; E78.5 Hyperlipidemia, unspecified; K21.9 Gastro-esophageal reflux disease without esophagitis; N40.0 Benign prostatic hyperplasia without lower urinary tract symptoms; Z85.51 Personal history of malignant neoplasm of bladder; Z79.4 Long term (current) use of insulin; Z79.899 Other long term (current) drug therapy

== ENCOUNTER 2021-02-10 16:01 | Emergency (ER) | payer MEDICARE, OTHER ==
[~2021-02-10] VITALS: Ht 170.2 cm; Wt 95.5 kg
[~2021-02-10 16:01] MED LIST changes: +CLIN-250 PO; -CLIN150C15 PO; +CLIN150C17 PO; -CLIN300C6 PO; -DOXY100C PO; +DOXY100C3 PO; -KLOR10TA76 PO; +POTA-136 PO
[2021-02-10] MEDS ORDERED: NITROGLYCERIN 2% OINT 1 GM *U/D* PKT TOP ONE (16:45)
[2021-02-10] MEDS ORDERED: FUROSEMIDE 40MG/4ML VIAL (J1940) IV ONE (16:45)
--- NOTE | 2021-02-10 16:59 | REP ---
INDICATION: DYSPNEA/COUGH. COMPARISON: Multiple the latest 10/27/2020 also portable TECHNIQUE: Portable FINDINGS: The technique utilized in obtaining the radiograph has magnified the cardiac silhouette and accentuated the interstitial markings. Cardiomediastinal silhouette is stable. There is mild cardiomegaly accentuated by technique. Since the last exam a diffuse increase in the interstitial markings has developed with evidence of mild patchy interstitial and airspace opacities in the right upper lobe and lung bases. There is mild bilateral CP angle blunting representing a change from the prior exam. There is no change in the osseous structures. IMPRESSION: Interstitial and airspace opacities as described above. Asymmetric pulmonary edema versus pneumonia. Correlate clinically. There is evidence of small bilateral pleural effusions. <Electronically signed by Clovis Geronimo > 02/10/21 [id number]
[2021-02-10] MEDS ORDERED: **hydrALAZINE HCL** 25 MG TAB PO ONE (17:45)
[2021-02-10] MEDS ORDERED: hydrALAZINE 20MG/ML 1ML VIAL (J0360 PER 20MG) IV ONE (17:45)
--- OUTSIDE RECORDS SUMMARY | 2021-02-10 17:56 | CCD ---
Author Organization Unknown Address [address] [place] [address] Phone [phone] Care Team Providers Care Horticulture Professor Name Role Phone Guerrero Hodges Unavailable Unavailable Allergies Code Code System Name Reaction Severity Status Onset NKDA Notes: NKDA Medications Name Status Start Date Stop Date amlodipine 10 mg tablet TAKE ONE TABLET BY MOUTH DAILY Active Not avai lable carvedilol phosphate ER 10 mg capsule,ex [id number] multiphase TAKE ONE CAPSULE BY MOUTH ONCE DAILY Completed carvedilol phosphate ER 20 mg capsule,ex [id number] multiphase Take 1 capsule every day by oral route. Active Not available cephalexin 500 mg capsule TAKE ONE CAPSULE BY MOUTH EVERY 6 HOURS Completed 01/10/2021 clindamycin HCl 150 mg capsule Completed 04/25/2019 clindamycin HCl 300 mg capsule TAKE ONE CAPSULE BY MOUTH THREE TIMES DAILY FOR 7 DAYS Completed 02/24/2020 clopidogrel 75 mg tablet TAKE ONE TABLET BY MOUTH ONCE DAILY Completed 01/2020 furosemide 40 mg tablet TAKE ONE TABLET BY MOUTH TWICE DAILY FOR THREE DAYS THEN ONE TABLET EVERY MORNING Completed 02/24/2020 gabapentin 100 mg capsule TAKE ONE CAPSULE BY MOUTH TWICE DAILY Completed 04/25/2019 hydralazine 25 mg tablet TAKE THREE TABLETS BY MOUTH EVERY EIGHT HOURS Completed 12/13/2020 hydrochlorothiazide 25 mg tablet Take 1 tablet every day by oral route. Completed 12/13/2020 hydrocodone 5 mg-acetaminophen 325 mg tablet Completed 02/24/2020 Levemir FlexTouch U-100 Insulin 100 unit /mL (3 mL) subcutaneous pen inject 70 units at bedtime Active Not availabl e Levemir FlexTouch U-100 Insuln 70 units at bedtime Active Not available Levemir U-100 Insulin 100 unit/mL subcut aneous solution INJECT 10 UNITS SUBCUTANEOUSLY TWICE DAILY Completed 02/24/2020 lisinopril 40 mg tablet TAKE ONE TABLET BY MOUTH ONCE DAILY Completed 01/2020 metformin 1,000 mg tablet TAKE ONE TABLET BY MOUTH TWICE DAILY Completed omeprazole 20 mg capsule,delayed release TAKE ONE CAPSULE BY MOUTH ONE-HALF HOUR BEFORE DINNER Completed 02/24/2020 OneTouch Ultra Blue Test Strip Completed 0 09/03/2020 OneTouch Ultra2 Meter Check BG qid. Completed 09/03/2020 OneTouch Ultra2 Meter USE DIRECTED TO CHECK BLOOD GLUCOSE FOUR TIMES DAILY Completed 09/03/2020 OneTouch Verio test strips Check BG tid. Active Not available Pen Needle 31 gauge x 3/16" Completed 08/15 Pen Needle 31 gauge x 5/16" USE DIRECTED WITH INSULIN Completed 09/03/2020 potassium chloride ER 10 mEq tablet,exte nded release TAKE TWO TABLETS BY MOUTH ONCE DAILY Completed potassium chloride ER 10 mEq tablet,exte nded release(part/cryst) TAKE TWO TABLETS BY MOUTH ONCE DAILY Completed potassium chloride ER 20 mEq tablet,extended release(part/cryst) Completed 08/20/2020 simvastatin 20 mg tablet TAKE ONE TABLET BY MOUTH ONCE DAILY Active Not available simvastatin 80 mg tablet TAKE ONE TABLET BY MOUTH ONCE DAILY Completed 01/2020 Tradjenta 5 mg tablet TAKE ONE TABLET BY MOUTH ONCE DAILY Completed 01/2020 Problems Name Status Onset Date Source Vitamin D Deficiency Active 09/12/2013 History Type II Diabetes Mellitus Uncontrolled Active 4 History Clinical Finding Active 02/17/2014 History Influenza Vaccine Needed Active 02/08/2015 History Borderline Glaucoma Active 07/26/2015 History Foot Ulcer Due to Type 2 Diabetes Mellitus Active 08/30 History Neuropathy Due to Type 2 Diabetes Mellitus Active 09/13 History Finding by Site Active 04/12/2016 History Dysthymia Active 07/18/2016 History Hypertensive Disorder Active 07/18/2016 History Snoring Active 08/28/2016 History Finding of Esophagus Active 08/28/2016 History 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 Hist ory Simple Obesity Active 02/14/2017 History Body Mass Index 30+ - Obesity Active 02/14/2017 Hi story Disorder of Soft Tissue Active 01/31/2018 History Emotional State Finding Active 06/13/[address] Concept Active 06/13/2018 History Urinary Tract Obstruction Active 07/16/2018 Histor y Localized Enlarged Lymph Nodes Active 07/16/2018 H istory Pelvic and Perineal Pain Active 07/16/2018 History Clinical Finding Active 07/16/2018 History Electrocardiogram Abnormal Active 08/15/2018 Histo ry Low Back Pain Active 09/12/2018 History Dental Caries on Smooth Surface Penetrating into Pulp Active 01/13/2019 History Obstructed Inguinal Hernia Active 02/07/2019 Histo ry Under Immunized Active 03/04/2019 History 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 History Clinical Finding Active 07/22/2019 History Patient Asked to Attend Active 07/30/2019 History Anemia of Chronic Disease Active 10/06/2019 Histor y Chronic Kidney Disease Stage 1 Active 10/06/2019 H istory Ulcer of Foot Active 12/19/2019 History Diabetic Foot Ulcer Active 02/20/2020 Type 2 Diabetes Mellitus without Complication Active Diabetic Foot Ulcer Active 09/20/2020 Procedures Notes: Bladder Ca , Hernia repair, Penil e implant ( dr Mccauley 2009), penile implant- 09/2016, stints in both legs, 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, amputation of Results Lab Results Date Name Specimen Result Interpretation Description Value Range Status Address 10/27/2020 Glucose, Fingerstick, Blood High Bedside Glucose 412 mg/dL 83- 110 mg/dL [facility]: 83 0 [facility] 10/27/2020 Ctni Istat Normal Istat Troponin 0.00 NG/m L 0.00-0.08 NG/mL [facility]: [address] [facility] 10/27/2020 CBC W/ Auto Diff Normal White Blood Count 6.2 10 4.0-10.0 10 [facility]: 830 [facility] Normal Red Blood Count 4.78 10 4.30-6.10 10 [facility]: 830 [facility] Normal Hemoglobin 13.6 g/dL 13.5-17.5 g/dL [facility]: 830 [facility] Low Hematocrit 41.5 % 42.0-52.0 % [facility]: 830 [facility] Normal Mean Corpuscular Volume 86.8 fL 80.0 -96.0 fL [facility]: 830 [facility] Normal Mean Corpuscular Hemoglobin 28.5 pg 27.0-33.0 pg Final [facility]: 830 [facility] Normal Mean Corpuscular HGB Conc 32.8 g/dL 32.0-36.5 g/dL Final [facility]: 830 [facility] Normal Red Cell Distribution Width 13.6 % 1 1.5-14.5 % [facility]: 8[address] [facility] Normal Platelet Count, Automated 226 10 150 -450 10 [facility]: 8[address] [facility] Normal Neutrophils % 57.0 % 36.0-66.0 % [facility]: 8[address] [facility] Normal Lymph % 28.6 % 24.0-44.0 % Final [facility]: 8[address] [facility] High [place] % 8.2 % 2.0-8.0 % Final [facility]: 8[address] [facility] High Eos % 4.0 % 0.0-3.0 % [facility]: 830 [facility] High Baso % 1.4 % 0.0-1.0 % Final [facility]: 830 [facility] Normal Immature Granulocyte % 0.8 % 0-3.0 % [facility]: 830 [facility] Normal Nucleated Red Blood Cell % 0.0 % 0- 0 % [facility]: 830 [facility] Normal Neutrophils # 3.6 10 1.5-8.5 10 [facility]: 830 [facility] Normal Lymph # 1.8 10 1.5-5.0 10 Final [facility]: 830 [facility] Normal [place] # 0.5 10 0.0-0.8 10 [facility]: 830 [facility] Normal Eos # 0.3 10 0.0-0.5 10 [facility]: 830 [facility] Normal Baso # 0.1 10 0.0-0.2 10 [facility]: 830 [facility] 10/27/2020 BMP, Serum or Plasma Panic High Glucose, Fas ting 429 mg/dL 70- 100 mg/dL [facility]: 83 0 [facility] Normal Blood Urea Nitrogen 17 mg/dL 7-18 mg /dL [facility]: 830 [facility] High Creatinine for GFR 1.61 mg/dL 0.70-1 .30 mg/dL [facility]: 8[address] [facility] Normal Glomerular Filtration Rate 45.4 >4 2 [facility]: 8[address] [facility] Normal Sodium Level 138 mEq/L 136-145 mEq/L [facility]: 830 [facility] Normal Potassium Serum 3.6 mEq/L 3.5-5.1 mE q/L [facility]: 8[address] [facility] Normal Chloride Level 104 mEq/L 98-107 mEq/ L [facility]: 8[address] [facility] Normal Carbon Dioxide Level 28 mEq/L 21-32 mEq/L [facility]: 8[address] [facility] Low Anion Gap 6 mEq/L 8-16 mEq/L [facility]: 830 [facility] Normal Calcium Level 9.4 mg/dL 8.8-10.2 mg/ dL [facility]: 830 [facility] 10/27/2020 Glucose, Fingerstick, Blood High Bedside Glucose 373 mg/dL 83- 110 mg/dL [facility]: 83 0 [facility] 10/27/2020 HbA1C (Hemoglobin a1C), Blood Normal Hemogl obin a1C 13.7 % [facility]: 830 [facility] High Estimated Average Glucose 346 mg/dL 60-110 mg/dL [facility]: 830 [facility] 10/27/2020 Glucose, Fingerstick, Blood Blood Glucos e: mg/dl 48.5 [facility]: 238 [facility] 10/27/2020 Hemoglobin a1C, Fingerstick ABNORMAL Hba1C 14. 0 % Final [facility]: [address] [facility] 10/06/2020 CMP, Serum or Plasma Blood venous CRITICAL HIGH Glucose 549 mg/dL 65-99 mg/dL Final [facility]: 875 [facility] Blood venous High Urea Nitrogen (BUN) 36 mg/dL 7-25 mg/dL Final [facility]: 875 [facility] Blood venous High Creatinine 1.26 mg/dL 0.70-1. 18 mg/dL [facility]: 875 [facility] Blood venous Low eGFR Non-afr. Italian 5 7 mL/min/1.73m2 > or = 60 mL/min/1.73m2 Final [facility]: 875 [facility] Blood venous Normal eGFR 67 mL/min/1.73m2 > or = 60 mL/min/1.73m2 Final [facility]: 875 [facility] Blood venous High BUN/creatinine Ratio 29 (calc ) 6-22 (calc) Final [facility]: 8[address] [facility] Blood venous Low Sodium 131 mmol/L 135-146 mmo l/L Final [facility]: 875 [facility] Blood venous Normal Potassium 4.7 mmol/L 3.5-5.3 mmol/L [facility]: [address] [facility] Blood venous Normal Chloride 98 mmol/L 98-110 mmo l/L Final [facility]: 8[address] [facility] Blood venous Normal Carbon Dioxide 28 mmol/L 20-3 2 mmol/L [facility]: [address] [facility] Blood venous Normal Calcium 8.9 mg/dL 8.6-10.3 mg /dL [facility]: [address] [facility] Blood venous Normal Protein, Total 6.2 g/dL 6.1-8 .1 g/dL [facility]: 8[address] [facility] Blood venous Low Albumin 2.9 g/dL 3.6-5.1 g/dL [facility]: 8[address] [facility] Blood venous Normal Globulin 3.3 g/dL (calc) 1.9- 3.7 g/dL (calc) Final [facility]: [address] [place] Blood venous Low Albumin/globulin Ratio 0 .9 (calc) 1.0-2.5 (calc) Final [facility]: [address] [facility] Blood venous Normal Bilirubin, Total 0.4 mg/dL 0. 2-1.2 mg/dL Final [facility]: 8[address] [facility] Blood venous Normal Alkaline Phosphatase 98 U/L 3 5-144 U/L Final [facility]: 875 [facility] Blood venous Normal Ast 10 U/L 10-35 U/L Final [facility]: 875 [facility] Blood venous Low Alt 8 U/L 9-46 U/L Final uest [facility]: [address] [place] [facility] 10/06/2020 HbA1C (Hemoglobin a1C), Blood Blood venous High Hemoglobin a1C >14.0 % of total HGB <5.7 % of total HGB Final [facility]: [address] [place] [facility] 07/12/2020 Microalbumin, Urine Normal Creatinine, Urin e 88.6 mg/dL Final [facility]: 0 [facility] Normal Malb Urine Siemens 2780.0 mg/L [facility]: 0 [facility] High Alexander/creat Ratio 3137.6 mcg/mg 0.0-30 .0 mcg/mg [facility]: 0 [facility] 07/12/2020 HbA1C (Hemoglobin a1C), Blood Blood venous Normal Hemoglobin a1C 12.7 % [facility]: 830 [facility] Blood venous High Estimated Average Glucose 318 mg/dL 60-110 mg/dL [facility]: 0 [facility] 07/12/2020 CMP, Serum or Plasma Blood venous Panic High Gl ucose, Fasting 413 mg/dL 70-100 mg/dL [facility]: 830 [facility] Blood venous Normal Blood Urea Nitrogen 11 mg/dL 7-18 mg/dL [facility]: 0 [facility] Blood venous High Creatinine for GFR 1.44 mg/dL 0.70-1.30 mg/dL [facility]: 830 [facility] Blood venous Normal Glomerular Filtration Rate 51 .6 >42 [facility]: 830 [facility] Blood venous Normal Sodium Level 138 mEq/L 136-14 5 mEq/L [facility]: 830 [facility] Blood venous Normal Potassium Serum 4.6 mEq/L 3.5 -5.1 mEq/L [facility]: 830 [facility] Blood venous Normal Chloride Level 105 mEq/L 98-1 07 mEq/L [facility]: 830 [facility] Blood venous Normal Carbon Dioxide Level 28 mEq/L 21-32 mEq/L [facility]: 8[address] [facility] Blood venous Low Anion Gap 5 mEq/L 8-16 mEq/L [facility]: [address] [place] [address] Blood venous Low Calcium Level 8.3 mg/dL 8.8-1 0.2 mg/dL [facility]: 830 [facility] Blood venous Low AST/SGOT 6 U/L 7-37 U/L [facility]: 830 [facility] Blood venous Normal ALT/SGPT 12 U/L 12-78 U/L [facility]: 830 [facility] Blood venous Normal Alkaline Phosphatase 104 U/L 45-117 U/L [facility]: 0 [facility] Blood venous Normal Bilirubin,total 0.3 mg/dL 0.2 -1.0 mg/dL [facility]: 830 [facility] Blood venous Low Total Protein 6.3 gm/dL 6.4-8 .2 gm/dL [facility]: [address] [place] [address] Blood venous Low Albumin 2.5 gm/dL 3.2-5.2 gm/ dL [facility]: [address] [place] [address] Blood venous Normal Albumin/globulin Ratio 0.7 [facility]: [address] [place] [address] 07/12/2020 Lipid Panel, Blood High Triglycerides Lev el 229 mg/dL <150 mg/dL [facility]: 83 0 [facility] High Cholesterol Level 204 mg/dL <200 mg/ dL [facility]: 830 [facility] Low HDL Cholesterol 33 mg/dL >40 mg/dL F inal [facility]: 830 [facility] High LDL Cholesterol 125 mg/dL <100 mg/dL [facility]: 830 [facility] Normal Non-hdl-c 171 mg/dL Final [facility]: 830 [facility] High Cholesterol Risk Ratio 6.181 <5 [facility]: 830 [facility] 07/12/2020 TSH, Serum or Plasma Blood venous Normal Thyroid Stimulating Hormone 1.550 uIU/mL 0.358-3.740 uIU/mL [facility]: 0 [facility] 02/27/2020 BMP, Serum or Plasma Blood venous High Glu cose, Fasting 287 mg/dL 70-100 mg/dL [facility]ter: 830 [facility] Blood venous High Blood Urea Nitrogen 20 mg/dL 7-18 mg/dL [facility]: 0 [facility] Blood venous High Creatinine for GFR 1.34 mg/dL 0.70-1.30 mg/dL [facility]: 830 [facility] Blood venous Normal Glomerular Filtration Rate 56 .1 >42 [facility]: 830 [facility] Blood venous Normal Sodium Level 141 mEq/L 136-14 5 mEq/L [facility]: 830 [facility] Blood venous Normal Potassium Serum 4.5 mEq/L 3.5 -5.1 mEq/L [facility]: 0 [facility] Blood venous High Chloride Level 110 mEq/L 98-1 07 mEq/L [facility]: 830 [facility] Blood venous Normal Carbon Dioxide Level 27 mEq/L 21-32 mEq/L [facility]: 830 [facility] Blood venous Low Anion Gap 4 mEq/L 8-16 mEq/L Final [facility]: 830 [facility] Blood venous Low Calcium Level 8.4 mg/dL 8.8-1 0.2 mg/dL Final [facility]: 830 [facility] Past Encounters 01/10/2021 Chronic Kidney Disease Stage 1; Hypertensive Disorder; Body Mass Index 25-29 - Overweight Guerrero Hodges MD: [address] [place] [phone], Ph. 12/29/2020 Hypertensive Disorder; Diabetic Foot Ulcer Guerrero Hodges MD: [address] [place] [phone], Ph. 12/13/2020 Diabetic Foot Ulcer Guerrero Hodges MD: [address] [place] [phone], Ph. 12/10/2020 Type 2 Diabetes Mellitus without Complication; Hypertensive Disorder Guerrero Hodges MD: [address] [place] [phone], Ph. 10/27/2020 Type 2 Diabetes Mellitus without Complication; Hypertensive Disorder Guerrero Hodges MD: [address] [place] [phone], Ph. 10/06/2020 Type II Diabetes Mellitus Uncontrolled; Hypertensive Disorder Guerrero Hodges MD: [address] [place] [phone], Ph. 09/20/2020 Diabetic Foot Ulcer; Hypertensive Disorder; Type 2 Diabetes Mellitus without Complication Guerrero Hodges MD: [address] [place] [phone], Ph. 09/03/2020 Diabetic Foot Ulcer; Hypertensive Disorder Guerrero Hodges MD: [address] [place] [phone], Ph. 08/20/2020 Skin Ulcer Due to Diabetes Mellitus; Diabetic Foot Ulcer; Hypertensive Disorder Guerrero Hodges MD: [address] [place] [phone], Ph. 07/12/2020 Guerrero Hodges MD: [address] [place] [phone], Ph. 05/24/2020 Administration of Pneumococcal Vaccine; Administration of Influenza Vaccine; Immunization Due; Hypertensive Disorder; Diabetic Foot Ulcer; Type II Diabetes Mellitus Uncontrolled; Type 2 Diabetes Mellitus without Complication Guerrero Hodges MD: [address] [place] [phone], Ph. 03/05/2020 Diabetic Foot Ulcer; Administration of Influenza Vaccine; Foot Ulcer Due to Type 2 Diabetes Mellitus; Hypertensive Disorder Guerrero Hodges MD: [address] [place] [phone], Ph. 02/27/2020 Administration of Influenza Vaccine; Chronic Kidney Disease Stage 1; Diabetic Foot Ulcer Guerrero Hodges MD: [address] [place] [phone], Ph. 02/20/2020 Hypertensive Disorder; Diabetic Foot Ulcer Guerrero Hodges MD: [address] [place] [phone], Ph. Social History Tobacco Smoking Status Former Smoker Vaccine List Vaccine Type influenza, injectable, quadrivalent, pre servative free 05/12/20140.5 mL 03/04/20190.5 mL 10.5 10.5 mL influenza, seasonal, injectable 02/08/20150.5 mL 01/31/20180.5 mL pneumococcal conjugate PCV 13 02/08/20150.75 mL pneumococcal polysaccharide PPV23 12/29/20130.5 mL 10.5 mL zoster recombinant 0.5 mL Plan of Care Reminders Provider Appointments None recorded. Lab None recorded. Referral None recorded. Procedures None recorded. Surgeries None recorded. Imaging None recorded. Vitals 01/10/2021 03:20PM ESTABLISHED [id number] Height Weight BMI Blood Pressure 69 in 195 lbs 4 oz 28.8 kg/m2 218/92 mm[Hg] 12/29/2020 02:00PM ESTABLISHED [id number] Height Weight BMI Blood Pressure 69 in 195 lbs 6 oz 28.9 kg/m2 220/84 mm[Hg] 12/13/2020 11:40AM ESTABLISHED [id number] Height Weight BMI Blood Pressure 69 in 192 lbs 4 oz 28.4 kg/m2 208/86 mm[Hg] 12/10/2020 09:40AM HOSPITAL DISCHARGE Height Weight BMI Blood Pressure 69 in 194 lbs 4 oz 28.7 kg/m2 188/69 mm[Hg] 10/27/2020 10:00AM PROVIDER REQUESTED Height Weight BMI Blood Pressure 69 in 192 lbs 28.4 kg/m2 195/76 mm[Hg] 10/06/2020 09:40AM ESTABLISHED [id number] Height Weight BMI Blood Pressure 69 in 199 lbs 2 oz 29.4 kg/m2 (1) 219/79 mm[ Hg] (2) 178/82 mm[Hg] 09/20/2020 11:00AM ESTABLISHED [id number] Height Weight BMI Blood Pressure 69 in 192 lbs 28.4 kg/m2 182/77 mm[Hg] 09/03/2020 01:40PM ESTABLISHED [id number] Height Weight BMI Blood Pressure 69 in 186 lbs 16 oz 27.6 kg/m2 185/78 mm[Hg] 08/20/2020 10:20AM ESTABLISHED [id number] Height Weight BMI Blood Pressure 69 in 188 lbs 27.8 kg/m2 (1) 172/79 mm[H g] (2) 164/85 mm[Hg] 07/12/2020 10:10AM NURSE LAB COLLECTION Height 69 in 05/24/2020 08:20AM ESTABLISHED [id number] Height Weight BMI Blood Pressure 69 in 193 lbs 28.5 kg/m2 204/80 mm[Hg] 03/05/2020 01:00PM ESTABLISHED [id number] Height Weight BMI Blood Pressure 69 in 198 lbs 8 oz 29.3 kg/m2 156/63 mm[Hg] 02/27/2020 03:20PM ESTABLISHED [id number] Height Weight BMI Blood Pressure 69 in 203 lbs 3.2 oz 30 kg/m2 (1) 208/78 m m[Hg] (2) 189/75 mm[Hg] 02/20/2020 01:40PM ESTABLISHED [id number] Height Weight BMI Blood Pressure 69 in 205 lbs 2 oz 30.3 kg/m2 181/77 mm[Hg] 01/16/2020 Height Weight BMI Blood Pressure 69 in 203 lbs 2.08 oz 30.11 kg/m2 (1) 203/79 mm[Hg] (2) 194/79 mm[Hg] 12/19/2019 Height Weight BMI 69 in 201 lbs 2.08 oz 29.81 kg/m2 12/09/2019 Height Weight BMI Blood Pressure 69 in 205 lbs 12.8 oz 30.50 kg/m2 217/78 mm[H g] 11/10/2019 Height Weight BMI Blood Pressure 69 in 194 lbs 28.75 kg/m2 159/77 mm[Hg] 10/06/2019 Height Weight BMI Blood Pressure 69 in 195 lbs 3.2 oz 28.93 kg/m2 146/72 mm[Hg ] 07/30/2019 Height Weight BMI Blood Pressure 69 in 195 lbs 4 oz 28.94 kg/m2 165/82 mm[Hg] 07/22/2019 Height Weight BMI Blood Pressure 69 in 196 lbs 2.08 oz 29.07 kg/m2 172/77 mm[H g] 03/04/2019 Height Weight BMI Blood Pressure 69 in 194 lbs 2.08 oz 28.77 kg/m2 138/68 mm[H g] 02/07/2019 Height Weight BMI Blood Pressure 69 in 193 lbs 9.6 oz 28.69 kg/m2 156/67 mm[Hg ] 01/14/2019 Height Weight BMI Blood Pressure 69 in 196 lbs 2.08 oz 29.07 kg/m2 189/78 mm[H g] 11/15/2018 Height Weight BMI Blood Pressure 69 in 190 lbs 28.16 kg/m2 197/87 mm[Hg] 11/08/2018 Height Weight BMI Blood Pressure 69 in 189 lbs 6.08 oz 28.07 kg/m2 161/76 mm[H g] 10/07/2018 Height Weight BMI Blood Pressure 69 in 182 lbs 26.97 kg/m2 144/60 mm[Hg] 09/24/2018 Height Weight BMI Blood Pressure 69 in 191 lbs 2.08 oz 28.33 kg/m2 153/66 mm[H g] 09/12/2018 Height Weight BMI Blood Pressure 69 in 190 lbs 28.16 kg/m2 180/68 mm[Hg] 08/23/2018 Blood Pressure 174/70 mm[Hg] 08/15/2018 Height Weight BMI Blood Pressure 69 in 190 lbs 4 oz 28.20 kg/m2 207/89 mm[Hg] 07/16/2018 Height Weight BMI Blood Pressure 69 in 171 lbs 25.34 kg/m2 176/81 mm[Hg] 07/05/2018 Blood Pressure 135/69 mm[Hg] 06/13/2018 Height Weight BMI Blood Pressure 69 in 171 lbs 25.34 kg/m2 182/85 mm[Hg]
--- OUTSIDE RECORDS SUMMARY | 2021-02-10 17:56 | CCD ---
Author Organization Unknown Address [address] [place] [address] Phone [phone] Care Team Providers Care Logging Contractor Name Role Phone Guerrero Hodges Unavailable Unavailable Allergies Code Code System Name Reaction Severity Status Onset NKDA Notes: NKDA Medications Name Status Start Date Stop Date amlodipine 10 mg tablet TAKE ONE TABLET BY MOUTH DAILY Active Not avai lable carvedilol phosphate ER 10 mg capsule,ex [id number] multiphase TAKE ONE CAPSULE BY MOUTH ONCE DAILY Completed carvedilol phosphate ER 20 mg capsule,ex [id number] multiphase Take 1 capsule every day by [...] unit /mL (3 mL) subcutaneous pen inject 80 units at bedtime Active Not availabl e Levemir FlexTouch U-100 Insuln 80 units at bedtime Completed 01/14/2021 Levemir U-100 Insulin 100 unit/mL subcut aneous [...] Strip Completed 0 09/03/2020 OneTouch Ultra2 Meter USE DIRECTED TO CHECK BLOOD GLUCOSE FOUR TIMES DAILY Completed 09/03/2020 OneTouch Ultra2 Meter Check BG qid. 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 18 mg/dL Final [facility]: [address] [facility] Blood venous Low eGFR Non-afr. Martiniquais 4 6 mL/min/1.73m2 > or = 60 mL/min/1.73m2 Final [facility] gh: [address] [facility] Blood venous Low eGFR 53 mL/min/1.73m2 > or = 60 mL/min/1.73m2 Final [facility]: [address] [facility] Blood venous Normal BUN/creatinine Ratio 10 (calc ) 6-22 (calc) Final [facility]: [address] [facility] Blood venous Normal Sodium 140 mmol/L 135-146 mmo l/L Final [facility]: [address] [facility] Blood venous High Potassium 5.4 mmol/L 3.5-5.3 mmol/L [facility]: [address] [facility] Blood venous Normal Chloride 103 mmol/L 98-110 mm ol/L [facility]: [address] [facility] Blood venous Normal Carbon Dioxide 22 mmol/L 20-3 2 mmol/L [facility]: [address] [facility] Blood venous Low Calcium 8.3 mg/dL 8.6-10.3 mg /dL [facility]: [address] [facility] Blood venous Low Protein, Total 5.9 g/dL 6.1-8 .1 g/dL [facility]: [address] [facility] Blood venous Low Albumin 2.5 g/dL 3.6-5.1 g/dL [facility]: [address] [facility] Blood venous Normal Globulin 3.4 g/dL (calc) 1.9- 3.7 g/dL (calc) [facility]: [address] [facility] Blood venous Low Albumin/globulin Ratio 0 .7 (calc) 1.0-2.5 (calc) [facility]: [address] [facility] Blood venous Normal Bilirubin, Total 0.4 mg/dL 0. 2-1.2 mg/dL [facility]: [address] [facility] Blood venous Normal Alkaline Phosphatase 96 U/L 3 5-144 U/L [facility]: [address] [facility] Blood venous Normal Ast 15 U/L 10-35 U/L [facility]: [address] [facility] Blood venous Low Alt 5 U/L 9-46 U/L Final [facility]: [address] [facility] 10/27/2020 Glucose, Fingerstick, Blood High Bedside Glucose 412 mg/dL 83- 110 mg/dL [facility]: 83 0 [facility] 10/27/2020 Ctni Istat Normal Istat Troponin 0.00 NG/m L 0.00-0.08 NG/mL [facility]: [address] [facility] 10/27/2020 CBC W/ Auto Diff Normal White Blood Count 6.2 10 4.0-10.0 10 [facility]: [address] [facility] Normal Red Blood Count 4.78 10 4.30-6.10 10 [facility]: [address] [facility] Normal Hemoglobin 13.6 g/dL 13.5-17.5 g/dL [facility]: [address] [place] [address] Low Hematocrit 41.5 % 42.0-52.0 % [facility]: [address] [place] [address] Normal Mean Corpuscular Volume 86.8 fL 80.0 -96.0 fL [facility]: [address] [place] [address] Normal Mean Corpuscular Hemoglobin 28.5 pg 27.0-33.0 pg [facility]: [address] [place] [address] Normal Mean Corpuscular HGB Conc 32.8 g/dL 32.0-36.5 g/dL [facility]: 0 [facility] Normal Red Cell Distribution Width 13.6 % 1 1.5-14.5 % [facility]: [address] [place] [address] Normal Platelet Count, Automated 226 10 150 -450 10 [facility]: 0 [facility] Normal Neutrophils % 57.0 % 36.0-66.0 % [facility]: [address] [facility] Normal Lymph % 28.6 % 24.0-44.0 % [facility]: [address] [facility] High [place] % 8.2 % 2.0-8.0 % [facility]: [address] [facility] High Eos % 4.0 % 0.0-3.0 % [facility]: 0 [facility] High Baso % 1.4 % 0.0-1.0 % [facility]: [address] [facility] Normal Immature Granulocyte % 0.8 % 0-3.0 % [facility]: 0 [facility] Normal Nucleated Red Blood Cell % 0.0 % 0- 0 % [facility]: [address] [facility] Normal Neutrophils # 3.6 10 1.5-8.5 10 [facility]: [address] [facility] Normal Lymph # 1.8 10 1.5-5.0 10 [facility]: [address] [facility] Normal [place] # 0.5 10 0.0-0.8 10 [facility]: [address] [facility] Normal Eos # 0.3 10 0.0-0.5 10 [facility]: [address] [facility] Normal Baso # 0.1 10 0.0-0.2 10 [facility]: [address] [facility] 10/27/2020 BMP, Serum or Plasma Panic High Glucose, Fas ting 429 mg/dL 70- 100 mg/dL [facility]: 83 0 [facility] Normal Blood Urea Nitrogen 17 mg/dL 7-18 mg /dL [facility]: [address] [facility] High Creatinine for GFR 1.61 mg/dL 0.70-1 .30 mg/dL [facility]: [address] [facility] Normal Glomerular Filtration Rate 45.4 >4 2 [facility]: [address] [facility] Normal Sodium Level 138 mEq/L 136-145 mEq/L [facility]: [address] [facility] Normal Potassium Serum 3.6 mEq/L 3.5-5.1 mE q/L [facility]: [address] [facility] Normal Chloride Level 104 mEq/L 98-107 mEq/ L [facility]: [address] [facility] Normal Carbon Dioxide Level 28 mEq/L 21-32 mEq/L [facility]: [address] [facility] Low Anion Gap 6 mEq/L 8-16 mEq/L [facility]: [address] [facility] Normal Calcium Level 9.4 mg/dL 8.8-10.2 mg/ dL Final [facility]: [address] [facility] 10/27/2020 Glucose, Fingerstick, Blood High Bedside Glucose 373 mg/dL 83- 110 mg/dL Final [facility]: 83 0 [facility] 10/27/2020 HbA1C (Hemoglobin a1C), Blood Normal Hemogl obin a1C 13.7 % [facility]: [address] [facility] High Estimated Average Glucose 346 mg/dL 60-110 mg/dL Final [facility]: [address] [facility] 10/27/2020 Glucose, Fingerstick, Blood Blood Glucos e: mg/dl 48.5 [facility]: [address] [place] [address] 10/27/2020 Hemoglobin a1C, Fingerstick ABNORMAL Hba1C 14. 0 % Final [facility]: [address] [place] [address] 10/06/2020 CMP, Serum or Plasma Blood venous CRITICAL HIGH Glucose 549 mg/dL 65-99 mg/dL Final [facility]: [address] [facility] Blood venous High Urea Nitrogen (BUN) 36 mg/dL 7-25 mg/dL Final [facility]: [address] [facility] Blood venous High Creatinine 1.26 mg/dL 0.70-1. 18 mg/dL [facility]: [address] [facility] Blood venous Low eGFR Non-afr. Martiniquais 5 7 mL/min/1.73m2 > or = 60 mL/min/1.73m2 Final [facility] gh: [address] [facility] Blood venous Normal eGFR 67 mL/min/1.73m2 > or = 60 mL/min/1.73m2 Final [facility] gh: [address] [facility] Blood venous High BUN/creatinine Ratio 29 (calc ) 6-22 (calc) Final [facility]: [address] [facility] Blood venous Low Sodium 131 mmol/L 135-146 mmo l/L Final [facility]: [address] [facility] Blood venous Normal Potassium 4.7 mmol/L 3.5-5.3 mmol/L [facility]: [address] [facility] Blood venous Normal Chloride 98 mmol/L 98-110 mmo l/L Final [facility]: [address] [facility] Blood venous Normal Carbon Dioxide 28 mmol/L 20-3 2 mmol/L Final [facility]: [address] [facility] Blood venous Normal Calcium 8.9 mg/dL 8.6-10.3 mg /dL [facility]: [address] [facility] Blood venous Normal Protein, Total 6.2 g/dL 6.1-8 .1 g/dL [facility]: [address] [facility] Blood venous Low Albumin 2.9 g/dL 3.6-5.1 g/dL [facility]: [address] [facility] Blood venous Normal Globulin 3.3 g/dL (calc) 1.9- 3.7 g/dL (calc) [facility]: [address] [facility] Blood venous Low Albumin/globulin Ratio 0 .9 (calc) 1.0-2.5 (calc) [facility]: [address] [facility] Blood venous Normal Bilirubin, Total 0.4 mg/dL 0. 2-1.2 mg/dL Final [facility]: [address] [facility] Blood venous Normal Alkaline Phosphatase 98 U/L 3 5-144 U/L Final [facility]: [address] [facility] Blood venous Normal Ast 10 U/L 10-35 U/L [facility]: [address] [facility] Blood venous Low Alt 8 U/L 9-46 U/L Final [facility]: [address] [facility] 10/06/2020 HbA1C (Hemoglobin a1C), Blood Blood venous High Hemoglobin a1C >14.0 % of total HGB <5.7 % of total HGB Final [facility]: [address] [facility] 07/12/2020 Microalbumin, Urine Normal Creatinine, Urin e 88.6 mg/dL [facility]: [address] [facility] Normal Malb Urine Siemens 2780.0 mg/L [facility]: [address] [facility] High Alexander/creat Ratio 3137.6 mcg/mg 0.0-30 .0 mcg/mg [facility]: [address] [place] [address] 07/12/2020 HbA1C (Hemoglobin a1C), Blood Blood venous Normal Hemoglobin a1C 12.7 % [facility]: [address] [place] [address] Blood venous High Estimated Average Glucose 318 mg/dL 60-110 mg/dL [facility]: [address] [place] [address] 07/12/2020 CMP, Serum or Plasma Blood venous Panic High Gl ucose, Fasting 413 mg/dL 70-100 mg/dL [facility] nter: [address] [place] [address] Blood venous Normal Blood Urea Nitrogen 11 mg/dL 7-18 mg/dL [facility]: [address] [place] [address] Blood venous High Creatinine for GFR 1.44 mg/dL 0.70-1.30 mg/dL [facility]: [address] [place] [address] Blood venous Normal Glomerular Filtration Rate 51 .6 >42 [facility]: [address] [place] [address] Blood venous Normal Sodium Level 138 mEq/L 136-14 5 mEq/L [facility]: [address] [place] [address] Blood venous Normal Potassium Serum 4.6 mEq/L 3.5 -5.1 mEq/L [facility]: [address] [place] [address] Blood venous Normal Chloride Level 105 mEq/L 98-1 07 mEq/L [facility]: [address] [place] [address] Blood venous Normal Carbon Dioxide Level 28 mEq/L 21-32 mEq/L [facility]: [address] [place] [address] Blood venous Low Anion Gap 5 mEq/L 8-16 mEq/L [facility]: [address] [place] [address] Blood venous Low Calcium Level 8.3 mg/dL 8.8-1 0.2 mg/dL [facility]: [address] [place] [address] Blood venous Low AST/SGOT 6 U/L 7-37 U/L [facility]: [address] [place] [address] Blood venous Normal ALT/SGPT 12 U/L 12-78 U/L [facility]: [address] [place] [address] Blood venous Normal Alkaline Phosphatase 104 U/L 45-117 U/L [facility]: [address] [facility] Blood venous Normal Bilirubin,total 0.3 mg/dL 0.2 -1.0 mg/dL [facility]: [address] [facility] Blood venous Low Total Protein 6.3 gm/dL 6.4-8 .2 gm/dL [facility]: [address] [facility] Blood venous Low Albumin 2.5 gm/dL 3.2-5.2 gm/ dL [facility]: [address] [facility] Blood venous Normal Albumin/globulin Ratio 0.7 [facility]: [address] [facility] 07/12/2020 Lipid Panel, Blood High Triglycerides Lev el 229 mg/dL <150 mg/dL [facility]: 83 0 [facility] High Cholesterol Level 204 mg/dL <200 mg/ dL [facility]: [address] [facility] Low HDL Cholesterol 33 mg/dL >40 mg/dL [facility]: [address] [facility] High LDL Cholesterol 125 mg/dL <100 mg/dL [facility]: [address] [facility] Normal Non-hdl-c 171 mg/dL [facility]: [address] [facility] High Cholesterol Risk Ratio 6.181 <5 [facility]: [address] [facility] 07/12/2020 TSH, Serum or Plasma Blood venous Normal Thyroid Stimulating Hormone 1.550 uIU/mL 0.358-3.740 uIU/mL [facility]: [address] [facility] 02/27/2020 BMP, Serum or Plasma Blood venous High Glu cose, Fasting 287 mg/dL 70-100 mg/dL [facility] nter: [address] [facility] Blood venous High Blood Urea Nitrogen 20 mg/dL 7-18 mg/dL [facility]: [address] [facility] Blood venous High Creatinine for GFR 1.34 mg/dL 0.70-1.30 mg/dL [facility]: [address] [facility] Blood venous Normal Glomerular Filtration Rate 56 .1 >42 [facility]: [address] [facility] Blood venous Normal Sodium Level 141 mEq/L 136-14 5 mEq/L [facility]: 0 [facility] Blood venous Normal Potassium Serum 4.5 mEq/L 3.5 -5.1 mEq/L [facility]: [address] [facility] Blood venous High Chloride Level 110 mEq/L 98-1 07 mEq/L [facility]: [address] [facility] Blood venous Normal Carbon Dioxide Level 27 mEq/L 21-32 mEq/L [facility]: [address] [facility] Blood venous Low Anion Gap 4 mEq/L 8-16 mEq/L [facility]: 0 [facility] Blood venous Low Calcium Level 8.4 mg/dL 8.8-1 0.2 mg/dL [facility]: [address] [facility] Past Encounters 01/14/2021 Hypertensive Disorder; Body Mass Index 25-29 - Overweight; Type 2 Diabetes Mellitus without Complication Guerrero Hodges MD: [address] [place] [phone], Ph. 01/10/2021 Chronic Kidney Disease Stage 1; Hypertensive Disorder; Body Mass Index 25-29 - Overweight Guerrero Hodges MD: [address] [place] [phone], Ph. 12/29/2020 Hypertensive Disorder; Diabetic Foot Ulcer Guerrero Hodges MD: [address] [place] [phone], Ph. 12/13/2020 Diabetic Foot Ulcer Guerrero Hodges MD: [address] [place] [phone], Ph. 12/10/2020 Type 2 Diabetes Mellitus without Complication; Hypertensive Disorder Guerrero Hodges MD: [address] [place] [phone], Ph. 10/27/2020 Type 2 Diabetes Mellitus without Complication; Hypertensive Disorder Guerrero Hodges MD: [address] [place] [phone], Ph. 10/06/2020 Type II Diabetes Mellitus Uncontrolled; Hypertensive Disorder Guerrero Hodges MD: [address] [place] [phone], Ph. 09/20/2020 Diabetic Foot Ulcer; Hypertensive Disorder; Type 2 Diabetes Mellitus without Complication Guerrero Hodges MD: [address] [place] [phone], Ph. 09/03/2020 Diabetic Foot Ulcer; Hypertensive Disorder Guerrero Hodges MD: [address] [place] [phone], Ph. 08/20/2020 Skin Ulcer Due to Diabetes Mellitus; Diabetic Foot Ulcer; Hypertensive Disorder Guerrero Hodges MD: [address] [place] [phone], Ph. 07/12/2020 Guerrero Hodges MD: [address] [place] [phone], Ph. 05/24/2020 Administration of Pneumococcal Vaccine; Administration of Influenza Vaccine; Immunization Due; Hypertensive Disorder; Diabetic Foot Ulcer; Type II Diabetes Mellitus Uncontrolled; Type 2 Diabetes Mellitus without Complication Guerrero Hodges MD: [address] [place] [phone], Ph. 03/05/2020 Diabetic Foot Ulcer; Administration of Influenza Vaccine; Foot Ulcer Due to Type 2 Diabetes Mellitus; Hypertensive Disorder Guerrero Hodges MD: [address] [place] [phone], Ph. 02/27/2020 Administration of Influenza Vaccine; Chronic Kidney Disease Stage 1; Diabetic Foot Ulcer Guerrero Hodges MD: [address] [place] [phone], Ph. 02/20/2020 Hypertensive Disorder; Diabetic Foot Ulcer Guerrero Hodges MD: [address] [place] [phone], Ph. Social History Tobacco Smoking Status Former Smoker Vaccine List Vaccine Type influenza, injectable, quadrivalent, pre servative free 05/12/20140.5 mL 03/04/20190.5 mL .5 10.5 mL influenza, seasonal, injectable 02/08/20150.5 mL 01/31/20180.5 mL pneumococcal conjugate PCV 13 02/08/20150.75 mL pneumococcal polysaccharide PPV23 12/29/20130.5 mL .5 mL zoster recombinant 0.5 mL Plan of Care Reminders Provider Appointments None recorded. Lab None recorded. Referral None recorded. Procedures None recorded. Surgeries None recorded. Imaging None recorded. Vitals 01/14/2021 10:00AM ESTABLISHED [id number] Height Weight BMI Blood Pressure 69 in 190 lbs 6 oz 28.1 kg/m2 (1) 227/63 mm[ Hg] (2) 219/97 mm[Hg] 01/10/2021 03:20PM ESTABLISHED [id number] Height Weight BMI Blood Pressure 69 in 195 lbs 4 oz 28.8 kg/m2 218/92 mm[Hg] 12/29/2020 02:00PM ESTABLISHED [id number] Height Weight BMI Blood Pressure 69 in 195 lbs 6 oz 28.9 kg/m2 220/84 mm[Hg] 12/13/2020 11:40AM ESTABLISHED [id number] Height Weight BMI Blood Pressure 69 in 192 lbs 4 oz 28.4 kg/m2 208/86 mm[Hg] 12/10/2020 09:40AM HOSPITAL DISCHARGE Height Weight BMI Blood Pressure 69 in 194 lbs 4 oz 28.7 kg/m2 188/69 mm[Hg] 10/27/2020 10:00AM PROVIDER REQUESTED Height Weight BMI Blood Pressure 69 in 192 lbs 28.4 kg/m2 195/76 mm[Hg] 10/06/2020 09:40AM ESTABLISHED [id number] Height Weight BMI Blood Pressure 69 in 199 lbs 2 oz 29.4 kg/m2 (1) 219/79 mm[ Hg] (2) 178/82 mm[Hg] 09/20/2020 11:00AM ESTABLISHED [id number] Height Weight BMI Blood Pressure 69 in 192 lbs 28.4 kg/m2 182/77 mm[Hg] 09/03/2020 01:40PM ESTABLISHED [id number] Height Weight BMI Blood Pressure 69 in 186 lbs 16 oz 27.6 kg/m2 185/78 mm[Hg] 08/20/2020 10:20AM ESTABLISHED [id number] Height Weight BMI Blood Pressure 69 in 188 lbs 27.8 kg/m2 (1) 172/79 mm[H g] (2) 164/85 mm[Hg] 07/12/2020 10:10AM NURSE LAB COLLECTION Height 69 in 05/24/2020 08:20AM ESTABLISHED [id number] Height Weight BMI Blood Pressure 69 in 193 lbs 28.5 kg/m2 204/80 mm[Hg] 03/05/2020 01:00PM ESTABLISHED [id number] Height Weight BMI Blood Pressure 69 in 198 lbs 8 oz 29.3 kg/m2 156/63 mm[Hg] 02/27/2020 03:20PM ESTABLISHED [id number] Height Weight BMI Blood Pressure 69 in 203 lbs 3.2 oz 30 kg/m2 (1) 208/78 m m[Hg] (2) 189/75 mm[Hg] 02/20/2020 01:40PM ESTABLISHED [id number] Height Weight BMI Blood Pressure 69 in [...]
--- OUTSIDE RECORDS SUMMARY | 2021-02-10 17:57 | CCD ---
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 Active Not available clindamycin HCl 150 mg capsule Completed 04/25/2019 [...] THREE TABLETS BY MOUTH EVERY EIGHT HOURS Active Not available hydrochlorothiazide 25 mg tablet Take 1 tablet every day by oral route. Active Not available hydrocodone 5 mg-acetaminophen 325 mg tablet Completed 02/24/2020 Levemir FlexTouch U-100 Insulin 100 unit/mL (3 mL) subcutaneous pen Active Not available Levemir FlexTouch U-100 Insuln 70 units at [...] Bedside Glucose 412 mg/dL 83- 110 mg/dL [facility]: 83 0 [facility] 10/27/2020 Ctni Istat Normal Istat Troponin 0.00 NG/m L 0.00-0.08 NG/mL [facility]: 830 [facility] 10/27/2020 CBC W/ Auto Diff Normal White Blood Count 6.2 10 4.0-10.0 10 [facility]: 830 [facility] Normal Red Blood Count 4.78 10 4.30-6.10 10 [facility]: 830 [facility] Normal Hemoglobin 13.6 g/dL 13.5-17.5 g/dL [facility]: 830 [facility] Low Hematocrit 41.5 % 42.0-52.0 % [facility]: 830 [facility] Normal Mean Corpuscular Volume 86.8 fL 80.0 -96.0 fL [facility]: 830 [facility] Normal Mean Corpuscular Hemoglobin 28.5 pg 27.0-33.0 pg [facility]: 830 [facility] Normal Mean Corpuscular HGB Conc 32.8 g/dL 32.0-36.5 g/dL Final [facility]: 830 [facility] Normal Red Cell Distribution Width 13.6 % 1 1.5-14.5 % [facility]: 830 [facility] Normal Platelet Count, Automated 226 10 150 -450 10 [facility]: 830 [facility] Normal Neutrophils % 57.0 % 36.0-66.0 % [facility]: 8[address] [facility] Normal Lymph % 28.6 % 24.0-44.0 % Final [facility]: 830 [facility] High [place] % 8.2 % 2.0-8.0 % Final [facility]: [address] [place] [address] High Eos % 4.0 % 0.0-3.0 % [facility]: [address] [place] [address] High Baso % 1.4 % 0.0-1.0 % Final [facility]: 830 [facility] Normal Immature Granulocyte % 0.8 % 0-3.0 % [facility]: 0 [facility] Normal Nucleated Red Blood Cell % 0.0 % 0- 0 % [facility]: 8[address] [facility] Normal Neutrophils # 3.6 10 1.5-8.5 10 [facility]: [address] [facility] Normal Lymph # 1.8 10 1.5-5.0 10 [facility]: 8[address] [facility] Normal [place] # 0.5 10 0.0-0.8 10 [facility]: 0 [facility] Normal Eos # 0.3 10 0.0-0.5 10 [facility]: 0 [facility] Normal Baso # 0.1 10 0.0-0.2 10 [facility]: [address] [place] [address] 10/27/2020 BMP, Serum or Plasma Panic High Glucose, Fas ting 429 mg/dL 70- 100 mg/dL [facility]: 83 0 [facility] Normal Blood Urea Nitrogen 17 mg/dL 7-18 mg /dL [facility]: [address] [facility] High Creatinine for GFR 1.61 mg/dL 0.70-1 .30 mg/dL [facility]: 830 [facility] Normal Glomerular Filtration Rate 45.4 >4 2 [facility]: 8[address] [facility] Normal Sodium Level 138 mEq/L 136-145 mEq/L [facility]: 830 [facility] Normal Potassium Serum 3.6 mEq/L 3.5-5.1 mE q/L [facility]: 8[address] [facility] Normal Chloride Level 104 mEq/L 98-107 mEq/ L [facility]: 8[address] [facility] Normal Carbon Dioxide Level 28 mEq/L 21-32 mEq/L [facility]: 8[address] [facility] Low Anion Gap 6 mEq/L 8-16 mEq/L [facility]: 830 [facility] Normal Calcium Level 9.4 mg/dL 8.8-10.2 mg/ dL [facility]: 830 [facility] 10/27/2020 Glucose, Fingerstick, Blood High Bedside Glucose 373 mg/dL 83- 110 mg/dL [facility]: 83 0 [facility] 10/27/2020 HbA1C (Hemoglobin a1C), Blood Normal Hemogl obin a1C 13.7 % [facility]: 8[address] [facility] High Estimated Average Glucose 346 mg/dL 60-110 mg/dL [facility]: 830 [facility] 10/27/2020 Glucose, Fingerstick, Blood Blood Glucos e: mg/dl 48.5 [facility]: [address] [place] [address] 10/27/2020 Hemoglobin a1C, Fingerstick ABNORMAL Hba1C 14. 0 % Final [facility]: [address] [place] [address] 10/06/2020 CMP, Serum or Plasma Blood venous CRITICAL HIGH Glucose 549 mg/dL 65-99 mg/dL Final [facility]: 875 [facility] Blood venous High Urea Nitrogen (BUN) 36 mg/dL 7-25 mg/dL [facility]: 8[address] [facility] Blood venous High Creatinine 1.26 mg/dL 0.70-1. 18 mg/dL [facility]: 8[address] [facility] Blood venous Low eGFR Non-afr. Pakistani 5 7 mL/min/1.73m2 > or = 60 mL/min/1.73m2 Final [facility]: [address] [facility] Blood venous Normal eGFR 67 mL/min/1.73m2 > or = 60 mL/min/1.73m2 Final [facility]: [address] [facility] Blood venous High BUN/creatinine Ratio 29 (calc ) 6-22 (calc) [facility]: [address] [facility] Blood venous Low Sodium 131 mmol/L 135-146 mmo l/L [facility]: [address] [facility] Blood venous Normal Potassium 4.7 mmol/L 3.5-5.3 mmol/L [facility]: [address] [facility] Blood venous Normal Chloride 98 mmol/L 98-110 mmo l/L [facility]: [address] [facility] Blood venous Normal Carbon Dioxide 28 mmol/L 20-3 2 mmol/L [facility]: [address] [facility] Blood venous Normal Calcium 8.9 mg/dL 8.6-10.3 mg /dL [facility]: [address] [facility] Blood venous Normal Protein, Total 6.2 g/dL 6.1-8 .1 g/dL [facility]: [address] [facility] Blood venous Low Albumin 2.9 g/dL 3.6-5.1 g/dL [facility]: [address] [facility] Blood venous Normal Globulin 3.3 g/dL (calc) 1.9- 3.7 g/dL (calc) [facility]: [address] [facility] Blood venous Low Albumin/globulin Ratio 0 .9 (calc) 1.0-2.5 (calc) Final [facility]: [address] , [place] Blood venous Normal Bilirubin, Total 0.4 mg/dL 0. 2-1.2 mg/dL Final [facility]: [address] , [place] Blood venous Normal Alkaline Phosphatase 98 U/L 3 5-144 U/L Final [facility]: [address] [facility] Blood venous Normal Ast 10 U/L 10-35 U/L Final [facility]: [address] [place] [facility] Blood venous Low Alt 8 U/L 9-46 U/L Final [facility]: [address] [place] , [place] 10/06/2020 HbA1C (Hemoglobin a1C), Blood Blood venous High Hemoglobin a1C >14.0 % of total HGB <5.7 % of total HGB Final [facility]: [address] [place] [facility] 07/12/2020 Microalbumin, Urine Normal Creatinine, Urin e 88.6 mg/dL [facility]: 0 [facility] Normal Malb Urine Siemens 2780.0 mg/L [facility]: [address] [place] [address] High Alexander/creat Ratio 3137.6 mcg/mg 0.0-30 .0 mcg/mg [facility]: [address] [place] [address] 07/12/2020 HbA1C (Hemoglobin a1C), Blood Blood venous Normal Hemoglobin a1C 12.7 % [facility]: [address] [place] [address] Blood venous High Estimated Average Glucose 318 mg/dL 60-110 mg/dL [facility]: [address] [place] [address] 07/12/2020 CMP, Serum or Plasma Blood venous Panic High Gl ucose, Fasting 413 mg/dL 70-100 mg/dL [facility] nter: 0 [facility] Blood venous Normal Blood Urea Nitrogen 11 mg/dL 7-18 mg/dL [facility]: [address] [place] [address] Blood venous High Creatinine for GFR 1.44 mg/dL 0.70-1.30 mg/dL [facility]: [address] [place] [address] Blood venous Normal Glomerular Filtration Rate 51 .6 >42 [facility]: [address] [facility] Blood venous Normal Sodium Level 138 mEq/L 136-14 5 mEq/L [facility]: 8[address] [facility] Blood venous Normal Potassium Serum 4.6 mEq/L 3.5 -5.1 mEq/L [facility]: [address] [facility] Blood venous Normal Chloride Level 105 mEq/L 98-1 07 mEq/L [facility]: 8[address] [facility] Blood venous Normal Carbon Dioxide Level 28 mEq/L 21-32 mEq/L [facility]: [address] [facility] Blood venous Low Anion Gap 5 mEq/L 8-16 mEq/L [facility]: 8[address] [facility] Blood venous Low Calcium Level 8.3 mg/dL 8.8-1 0.2 mg/dL [facility]: 8[address] [facility] Blood venous Low AST/SGOT 6 U/L 7-37 U/L Erinn l [facility]: 8[address] [facility] Blood venous Normal ALT/SGPT 12 U/L 12-78 U/L [facility]: 8[address] [facility] Blood venous Normal Alkaline Phosphatase 104 U/L 45-117 U/L [facility]: 8[address] [facility] Blood venous Normal Bilirubin,total 0.3 mg/dL 0.2 -1.0 mg/dL [facility]: [address] [facility] Blood venous Low Total Protein 6.3 gm/dL 6.4-8 .2 gm/dL [facility]: [address] [facility] Blood venous Low Albumin 2.5 gm/dL 3.2-5.2 gm/ dL [facility]: 8[address] [facility] Blood venous Normal Albumin/globulin Ratio 0.7 [facility]: 8[address] [facility] 07/12/2020 Lipid Panel, Blood High Triglycerides Lev el 229 mg/dL <150 mg/dL [facility]: 83 0 [facility] High Cholesterol Level 204 mg/dL <200 mg/ dL [facility]: [address] [place] [address] Low HDL Cholesterol 33 mg/dL >40 mg/dL F inal [facility]: [address] [place] [address] High LDL Cholesterol 125 mg/dL <100 mg/dL [facility]: [address] [place] [address] Normal Non-hdl-c 171 mg/dL [facility]: [address] [place] [address] High Cholesterol Risk Ratio 6.181 <5 [facility]: [address] [place] [address] 07/12/2020 TSH, Serum or Plasma Blood venous Normal Thyroid Stimulating Hormone 1.550 uIU/mL 0.358-3.740 uIU/mL [facility]: [address] [place] [address] 02/27/2020 BMP, Serum or Plasma Blood venous High Glu cose, Fasting 287 mg/dL 70-100 mg/dL [facility] nter: [address] [place] [address] Blood venous High Blood Urea Nitrogen 20 mg/dL 7-18 mg/dL [facility]: [address] [place] [address] Blood venous High Creatinine for GFR 1.34 mg/dL 0.70-1.30 mg/dL [facility]: [address] [place] [address] Blood venous Normal Glomerular Filtration Rate 56 .1 >42 [facility]: [address] [place] [address] Blood venous Normal Sodium Level 141 mEq/L 136-14 5 mEq/L [facility]: [address] [place] [address] Blood venous Normal Potassium Serum 4.5 mEq/L 3.5 -5.1 mEq/L [facility]: [address] [place] [address] Blood venous High Chloride Level 110 mEq/L 98-1 07 mEq/L [facility]: [address] [place] [address] Blood venous Normal Carbon Dioxide Level 27 mEq/L 21-32 mEq/L [facility]: [address] [place] [address] Blood venous Low Anion Gap 4 mEq/L 8-16 mEq/L [facility]: [address] [place] [address] Blood venous Low Calcium Level 8.4 mg/dL 8.8-1 0.2 mg/dL Final [facility]: [address] [facility] Past Encounters 12/10/2020 Type 2 Diabetes Mellitus without Complication; Hypertensive Disorder Guerrero Hodges MD: [address] [place] [phone], Ph. 10/27/2020 Type 2 Diabetes Mellitus without Complication; Hypertensive Disorder Guerrero Hodges MD: [address] [place] [phone], Ph. 10/06/2020 Type II Diabetes Mellitus Uncontrolled; Hypertensive Disorder Guerrero Hodges MD: [address] [place] [phone], Ph. 09/20/2020 Diabetic Foot Ulcer; Hypertensive Disorder; Type 2 Diabetes Mellitus without Complication Guerrero Hodges MD: [address] [place] [phone], Ph. 09/03/2020 Diabetic Foot Ulcer; Hypertensive Disorder Guerrero Hodges MD: [address] [place] [phone], Ph. 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 07/12/2020 Guerrero Hodges MD: [address] [place] [phone], Ph. 05/24/2020 Administration of Pneumococcal Vaccine; Administration of Influenza Vaccine; Immunization Due; Hypertensive Disorder; Diabetic Foot Ulcer; Type II Diabetes Mellitus Uncontrolled; Type 2 Diabetes Mellitus without Complication Guerrero Hodges MD: [address] [place] [phone], Ph. 03/05/2020 Diabetic Foot Ulcer; Administration of Influenza Vaccine; Foot Ulcer Due to Type 2 Diabetes Mellitus; Hypertensive Disorder Guerrero Hodges MD: [address] [place] [phone], Ph. 02/27/2020 Administration of Influenza Vaccine; Chronic Kidney Disease Stage 1; Diabetic Foot Ulcer Guerrero Hodges MD: [address] [place] [phone], Ph. 02/20/2020 Hypertensive Disorder; Diabetic Foot Ulcer Guerrero Hodges MD: [address] [place] [phone], Ph. Social History Tobacco Smoking Status Former [...] Surgeries None recorded. Imaging None recorded. Vitals 12/10/2020 09:40AM HOSPITAL DISCHARGE Height Weight BMI Blood Pressure 69 in 194 lbs 4 oz 28.7 kg/m2 188/69 mm[Hg] 10/27/2020 10:00AM PROVIDER REQUESTED Height Weight BMI Blood Pressure 69 in 192 lbs 28.4 kg/m2 195/76 mm[Hg] 10/06/2020 09:40AM ESTABLISHED [id number] Height Weight BMI Blood Pressure 69 in 199 lbs 2 oz 29.4 kg/m2 (1) 219/79 mm[ Hg] (2) 178/82 mm[Hg] 09/20/2020 11:00AM ESTABLISHED [id number] Height Weight BMI Blood Pressure 69 in 192 lbs 28.4 kg/m2 182/77 mm[Hg] 09/03/2020 01:40PM ESTABLISHED [id number] Height Weight BMI Blood Pressure 69 in 186 lbs 16 oz 27.6 kg/m2 185/78 mm[Hg] 08/20/2020 10:20AM ESTABLISHED [id number] Height Weight BMI Blood Pressure 69 in 188 lbs 27.8 kg/m2 (1) 172/79 mm[H g] (2) 164/85 mm[Hg] 07/12/2020 10:10AM NURSE LAB COLLECTION Height 69 in 05/24/2020 08:20AM ESTABLISHED [id number] Height Weight BMI Blood Pressure 69 in 193 lbs 28.5 kg/m2 204/80 mm[Hg] 03/05/2020 01:00PM ESTABLISHED [id number] Height Weight BMI Blood Pressure 69 in 198 lbs 8 oz 29.3 kg/m2 156/63 mm[Hg] 02/27/2020 03:20PM ESTABLISHED [id number] Height Weight BMI Blood Pressure 69 in 203 lbs 3.2 oz 30 kg/m2 (1) 208/78 m m[Hg] (2) 189/75 mm[Hg] 02/20/2020 01:40PM ESTABLISHED [id number] Height Weight BMI Blood Pressure 69 in [...]
--- OUTSIDE RECORDS SUMMARY | 2021-02-10 17:57 | CCD ---
Author Organization Unknown Address [address] [place] [address] Phone [phone] Care Team Providers Care Comptometer Operator Name Role Phone Guerrero Hodges Unavailable Unavailable Allergies Code Code System Name Reaction Severity Status Onset NKDA Notes: NKDA Medications Name Status Start Date Stop Date amlodipine 10 mg tablet TAKE ONE TABLET BY MOUTH DAILY Active Not avai lable carvedilol phosphate ER 10 mg capsule,ex [id number] multiphase TAKE ONE CAPSULE BY MOUTH ONCE DAILY Completed carvedilol phosphate ER 20 mg capsule,ex [id number] multiphase Take 1 capsule every day by oral route. Active Not available cephalexin 500 mg capsule TAKE ONE CAPSULE BY MOUTH EVERY 6 HOURS Active Not available clindamycin HCl 150 mg [...] Bedside Glucose 412 mg/dL 83- 110 mg/dL [facility]: 83 0 [facility] 10/27/2020 Ctni Istat Normal Istat Troponin 0.00 NG/m L 0.00-0.08 NG/mL [facility]: 830 [facility] 10/27/2020 CBC W/ Auto Diff Normal White Blood Count 6.2 10 4.0-10.[address] [facility]: 830 [facility] Normal Red Blood Count 4.78 10 4.30-6.[address] [facility]: 830 [facility] Normal Hemoglobin 13.6 g/dL 13.5-17.5 g/dL [facility]: 830 [facility] Low Hematocrit 41.5 % 42.0-52.0 % [facility]: 830 [facility] Normal Mean Corpuscular Volume 86.8 fL 80.0 -96.[address] [facility]: 830 [facility] Normal Mean Corpuscular Hemoglobin 28.5 pg 27.0-33.0 pg Final [facility]: 830 [facility] Normal Mean Corpuscular HGB Conc 32.8 g/dL 32.0-36.5 g/dL Final [facility]: 830 [facility] Normal Red Cell Distribution Width 13.6 % 1 1.5-14.5 % [facility]: 830 [facility] Normal Platelet Count, Automated 226 10 150 -[address] [facility]: 830 [facility] Normal Neutrophils % 57.0 % 36.0-66.0 % [facility]: 830 [facility] Normal Lymph % 28.6 % 24.0-44.0 % Final [facility]: 830 [facility] High [place]arnett % 8.2 % 2.0-8.0 % Final [facility]: 0 [facility] High Eos % 4.0 % 0.0-3.0 % Final [facility]: 830 [facility] High Baso % 1.4 % 0.0-1.0 % Final [facility]: 0 [facility] Normal Immature Granulocyte % 0.8 % 0-3.0 % [facility]: 830 [facility] Normal Nucleated Red Blood Cell % 0.0 % 0- 0 % [facility]: 830 [facility] Normal Neutrophils # 3.6 10 1.5-8.5 10 [facility]: 830 [facility] Normal Lymph # 1.8 10 1.5-5.0 10 [facility]: 830 [facility] Normal Harnett # 0.5 10 0.0-0.8 10 [facility]: 830 [facility] Normal Eos # 0.3 10 0.0-0.5 10 [facility]: 830 [facility] Normal Baso # 0.1 10 0.0-0.2 10 [facility]: 830 [facility] 10/27/2020 BMP, Serum or Plasma Panic High Glucose, Fas ting 429 mg/dL 70- 100 mg/dL [facility]: 83 0 [facility] Normal Blood Urea Nitrogen 17 mg/dL 7-18 mg /dL [facility]: 830 [facility] High Creatinine for GFR 1.61 mg/dL 0.70-1 .30 mg/dL [facility]: 830 [facility] Normal Glomerular Filtration Rate 45.4 >[address] [facility]: 830 [facility] Normal Sodium Level 138 mEq/L 136-145 mEq/L [facility]: 830 [facility] Normal Potassium Serum 3.6 mEq/L 3.5-5.1 mE q/L [facility]: 830 [facility] Normal Chloride Level 104 mEq/L 98-107 mEq/ L [facility]: 830 [facility] Normal Carbon Dioxide Level 28 mEq/L 21-32 mEq/L [facility]: 830 [facility] Low Anion Gap 6 mEq/L 8-16 mEq/L [facility]: 830 [facility] Normal Calcium Level 9.4 mg/dL 8.8-10.2 mg/ dL [facility]: 830 [facility] 10/27/2020 Glucose, Fingerstick, Blood High Bedside Glucose 373 mg/dL 83- 110 mg/dL [facility]: 83 0 [facility] 10/27/2020 HbA1C (Hemoglobin a1C), Blood Normal Hemogl obin a1C 13.7 % [facility]: 830 [facility] High Estimated Average Glucose 346 mg/dL 60-110 mg/dL [facility]: 830 [facility] 10/27/2020 Glucose, Fingerstick, Blood Blood Glucos e: mg/dl 48.5 [facility]: 238 [facility] 10/27/2020 Hemoglobin a1C, Fingerstick ABNORMAL Hba1C 14. 0 % Final [facility]: 238 [facility] 10/06/2020 CMP, Serum or Plasma Blood venous CRITICAL HIGH Glucose 549 mg/dL 65-99 mg/dL Final [facility]: 875 [facility] Blood venous High Urea Nitrogen (BUN) 36 mg/dL 7-25 mg/dL Final [facility]: 875 [facility] Blood venous High Creatinine 1.26 mg/dL 0.70-1. 18 mg/dL Final [facility]: 875 [facility] Blood venous Low eGFR Non-afr. [place] 5 7 mL/min/1.73m2 > or = 60 mL/min/1.73m2 Final [facility]: 875 [facility] Blood venous Normal eGFR 67 mL/min/1.73m2 > or = 60 mL/min/1.73m2 Final [facility]: 875 [facility] Blood venous High BUN/creatinine Ratio 29 (calc ) 6-22 (calc) Final [facility]: 875 [facility] Blood venous Low Sodium 131 mmol/L 135-146 mmo l/L Final [facility]: 875 [facility] Blood venous Normal Potassium 4.7 mmol/L 3.5-5.3 mmol/L Final [facility]: 875 [facility] Blood venous Normal Chloride 98 mmol/L 98-110 mmo l/L Final [facility]: 875 [facility] Blood venous Normal Carbon Dioxide 28 mmol/L 20-3 2 mmol/L Final [facility]: 875 [facility] Blood venous Normal Calcium 8.9 mg/dL 8.6-10.3 mg /dL [facility]: 875 [facility] Blood venous Normal Protein, Total 6.2 g/dL 6.1-8 .1 g/dL [facility]: 875 [facility] Blood venous Low Albumin 2.9 g/dL 3.6-5.1 g/dL [facility]: 875 [facility] Blood venous Normal Globulin 3.3 g/dL (calc) 1.9- 3.7 g/dL (calc) Final [facility]: 875 [facility] Blood venous Low Albumin/globulin Ratio 0 .9 (calc) 1.0-2.5 (calc) Final [facility]: 875 [address] [facility] Blood venous Normal Bilirubin, Total 0.4 mg/dL 0. 2-1.2 mg/dL Final [facility]: 875 [facility] Blood venous Normal Alkaline Phosphatase 98 U/L 3 5-144 U/L Final [facility]: 875 [facility] Blood venous Normal Ast 10 U/L 10-35 U/L Final [facility] 875 [facility] Blood venous Low Alt 8 U/L 9-46 U/L Final [facility]: [address] [facility] 10/06/2020 HbA1C (Hemoglobin a1C), Blood Blood venous High Hemoglobin a1C >14.0 % of total HGB <5.7 % of total HGB Final [facility]: [address] [facility] 07/12/2020 Microalbumin, Urine Normal Creatinine, Urin e 88.6 mg/dL [facility]: 830 [facility] Normal Malb Urine Siemens 2780.0 mg/L [facility]: 0 [facility] High Alexander/creat Ratio 3137.6 mcg/mg 0.0-30 .0 mcg/mg [facility]: 0 [facility] 07/12/2020 HbA1C (Hemoglobin a1C), Blood Blood venous Normal Hemoglobin a1C 12.7 % [facility]: 830 [facility] Blood venous High Estimated Average Glucose 318 mg/dL 60-110 mg/dL [facility]: 830 [facility] 07/12/2020 CMP, Serum or Plasma Blood venous Panic High Gl ucose, Fasting 413 mg/dL 70-100 mg/dL [facility] nter: 830 [facility] Blood venous Normal Blood Urea Nitrogen 11 mg/dL 7-18 mg/dL [facility]: 830 [facility] Blood venous High Creatinine for GFR 1.44 mg/dL 0.70-1.30 mg/dL [facility]: 830 [facility] Blood venous Normal Glomerular Filtration Rate 51 .6 >[address] [facility]: 830 [facility] Blood venous Normal Sodium Level 138 mEq/L 136-14 5 mEq/L [facility]: 830 [facility] Blood venous Normal Potassium Serum 4.6 mEq/L 3.5 -5.1 mEq/L [facility]: 830 [facility] Blood venous Normal Chloride Level 105 mEq/L 98-1 07 mEq/L [facility]: 830 [facility] Blood venous Normal Carbon Dioxide Level 28 mEq/L 21-32 mEq/L [facility]: 0 [facility] Blood venous Low Anion Gap 5 mEq/L 8-16 mEq/L [facility]: [address] [place] [address] Blood venous Low Calcium Level 8.3 mg/dL 8.8-1 0.2 mg/dL [facility]: 830 [facility] Blood venous Low AST/SGOT 6 U/L 7-37 U/L [facility]: [address] [place] [address] Blood venous Normal ALT/SGPT 12 U/L 12-78 U/L [facility]: [address] [place] [address] Blood venous Normal Alkaline Phosphatase 104 U/L 45-117 U/L [facility]: [address] [place] [address] Blood venous Normal Bilirubin,total 0.3 mg/dL 0.2 -1.0 mg/dL [facility]: 0 [facility] Blood venous Low Total Protein 6.3 gm/dL 6.4-8 .2 gm/dL [facility]: [address] [place] [address] Blood venous Low Albumin 2.5 gm/dL 3.2-5.2 gm/ dL [facility]: [address] [place] [address] Blood venous Normal Albumin/globulin Ratio 0.[address] [facility]: [address] [place] [address] 07/12/2020 Lipid Panel, Blood High Triglycerides Lev el 229 mg/dL <150 mg/dL Final [facility]: 83 0 [facility] High Cholesterol Level 204 mg/dL <200 mg/ dL [facility]: 830 [facility] Low HDL Cholesterol 33 mg/dL >40 mg/dL [facility]: 830 [facility] High LDL Cholesterol 125 mg/dL <100 mg/dL [facility]: 830 [facility] Normal Non-hdl-c 171 mg/dL [facility]: 830 [facility] High Cholesterol Risk Ratio 6.181 <[address] [facility]: 830 [facility] 07/12/2020 TSH, Serum or Plasma Blood venous Normal Thyroid Stimulating Hormone 1.550 uIU/mL 0.358-3.740 uIU/mL [facility]: 0 [facility] 02/27/2020 BMP, Serum or Plasma Blood venous High Glu cose, Fasting 287 mg/dL 70-100 mg/dL [facility] nter: 830 [facility] Blood venous High Blood Urea Nitrogen 20 mg/dL 7-18 mg/dL [facility]: 0 [facility] Blood venous High Creatinine for GFR 1.34 mg/dL 0.70-1.30 mg/dL [facility]: 830 [facility] Blood venous Normal Glomerular Filtration Rate 56 .1 >[address] [facility]: 830 [facility] Blood venous Normal Sodium Level 141 mEq/L 136-14 5 mEq/L [facility]: 830 [facility] Blood venous Normal Potassium Serum 4.5 mEq/L 3.5 -5.1 mEq/L [facility]: 0 [facility] Blood venous High Chloride Level 110 mEq/L 98-1 07 mEq/L [facility]: 830 [facility] Blood venous Normal Carbon Dioxide Level 27 mEq/L 21-32 mEq/L [facility]: 830 [facility] Blood venous Low Anion Gap 4 mEq/L 8-16 mEq/L Final [facility]: 830 [facility] Blood venous Low Calcium Level 8.4 mg/dL 8.8-1 0.2 mg/dL Final [facility]: 830 [facility] Past Encounters 12/29/2020 Hypertensive Disorder; Diabetic Foot Ulcer Guerrero Hodges MD: [address] [place] [phone], Ph. 12/13/2020 Diabetic Foot Ulcer Guerrero Hodges MD: [address] [place] [phone], Ph. 12/10/2020 Type 2 Diabetes Mellitus without Complication; Hypertensive Disorder Guerrero Hodges MD: [address] [place] [phone], Ph. 10/27/2020 Type 2 Diabetes Mellitus without Complication; Hypertensive Disorder Guerrero Hodges MD: [address] [place] [phone], Ph. 10/06/2020 Type II Diabetes Mellitus Uncontrolled; Hypertensive Disorder Guerrero Hodges MD: [address] [place] [phone], Ph. 09/20/2020 Diabetic Foot Ulcer; Hypertensive Disorder; Type 2 Diabetes Mellitus without Complication Guerrero Hodges MD: [address] [place] [phone], Ph. 09/03/2020 Diabetic Foot Ulcer; Hypertensive Disorder Guerrero Hodges MD: [address] [place] [phone], Ph. 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 07/12/2020 Guerrero Hodges MD: [address] [place] [phone], Ph. 05/24/2020 Administration of Pneumococcal Vaccine; Administration of Influenza Vaccine; Immunization Due; Hypertensive Disorder; Diabetic Foot Ulcer; Type II Diabetes Mellitus Uncontrolled; Type 2 Diabetes Mellitus without Complication Guerrero Hodges MD: [address] [place] [phone], Ph. 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 02/27/2020 Administration of Influenza Vaccine; Chronic Kidney Disease Stage 1; Diabetic Foot Ulcer Guerrero Hodges MD: [address] [place] [phone], Ph. 02/20/2020 Hypertensive Disorder; Diabetic Foot Ulcer Guerrero Hodges MD: [address] [place] [phone], Ph. Social History Tobacco Smoking Status Former [...] Surgeries None recorded. Imaging None recorded. Vitals 12/29/2020 02:00PM ESTABLISHED [id number] Height Weight BMI Blood Pressure 69 in 195 lbs 6 oz 28.9 kg/m2 220/84 mm[Hg] 12/13/2020 11:40AM ESTABLISHED [id number] Height Weight BMI Blood Pressure 69 in 192 lbs 4 oz 28.4 kg/m2 208/86 mm[Hg] 12/10/2020 09:40AM HOSPITAL DISCHARGE Height Weight BMI Blood Pressure 69 in 194 lbs 4 oz 28.7 kg/m2 188/69 mm[Hg] 10/27/2020 10:00AM PROVIDER REQUESTED Height Weight BMI Blood Pressure 69 in 192 lbs 28.4 kg/m2 195/76 mm[Hg] 10/06/2020 09:40AM ESTABLISHED [id number] Height Weight BMI Blood Pressure 69 in 199 lbs 2 oz 29.4 kg/m2 (1) 219/79 mm[ Hg] (2) 178/82 mm[Hg] 09/20/2020 11:00AM ESTABLISHED [id number] Height Weight BMI Blood Pressure 69 in 192 lbs 28.4 kg/m2 182/77 mm[Hg] 09/03/2020 01:40PM ESTABLISHED [id number] Height Weight BMI Blood Pressure 69 in 186 lbs 16 oz 27.6 kg/m2 185/78 mm[Hg] 08/20/2020 10:20AM ESTABLISHED [id number] Height Weight BMI Blood Pressure 69 in 188 lbs 27.8 kg/m2 (1) 172/79 mm[H g] (2) 164/85 mm[Hg] 07/12/2020 10:10AM NURSE LAB COLLECTION Height 69 in 05/24/2020 08:20AM ESTABLISHED [id number] Height Weight BMI Blood Pressure 69 in 193 lbs 28.5 kg/m2 204/80 mm[Hg] 03/05/2020 01:00PM ESTABLISHED [id number] Height Weight BMI Blood Pressure 69 in 198 lbs 8 oz 29.3 kg/m2 156/63 mm[Hg] 02/27/2020 03:20PM ESTABLISHED [id number] Height Weight BMI Blood Pressure 69 in 203 lbs 3.2 oz 30 kg/m2 (1) 208/78 m m[Hg] (2) 189/75 mm[Hg] 02/20/2020 01:40PM ESTABLISHED [id number] Height Weight BMI Blood Pressure 69 in [...]
--- OUTSIDE RECORDS SUMMARY | 2021-02-10 18:00 | CCD ---
Author Author [facility] Organization [facility] Address Unknown Phone Unavailable Support Name Relationship Address Phone Jefry Alyson Next Of Kin Unknown Unavailable Kisha DYSON, Bolivar Next Of Kin [address] [place] [address] Barbie Zavala Next Of Kin [address] [place] [phone] Idalia Harkins Next Of Kin [address] [place] [phone] Guerrero Hodges MD Next Of Kin [address] [place] [address] Jonny SHANEP, Maribel Next Of Kin [address] [place] [phone] [place] [address] Spike AGUIAR-C, Rosa Maria Next Of Kin [address] [place] [phone] Gabino KABA, Gudelia Next Of Kin [address] [place] [address] Francisco Burleson Next Of Kin [address] [place] [address] Bella Gastelum Next Of Kin [address] [place] [address] Emmett ZAYAS-BC, Janice Next Of Kin [address] [place] [phone] "" Next Of Kin [address] [place] [address] RETIRED Next Of Kin [place] [address] [phone] JEANETH SHIELDS Next Of Kin [address] [place] [address] ShieldsJeaneth montesinos [address] [place], [place] [id number] Care Team Providers Care Conventional Mortgage Underwriter Name Role Phone Katiana Hodges MD Unavailable Unavailable Katiana Hodges MD Unavailable Unavailable Katiana Hodges MD Unavailable Unavailable Katiana Hodges MD Unavailable Unavailable Katiana Hodges MD Unavailable Unavailable Katiana Hodges MD Unavailable Unavailable Katiana Hodges MD Unavailable Unavailable Katiana Hodges MD Unavailable Unavailable Katiana Hodges MD Unavailable Unavailable Katiana Hodges MD Unavailable Unavailable Katiana Hodges MD Unavailable Unavailable Katiana Hodges MD Unavailable Unavailable Katiana Hodges MD Unavailable Unavailable Katiana Hodges MD Unavailable Unavailable Katiana Hodges MD Unavailable Unavailable Katiana Hodges MD Unavailable Unavailable Katiana Hodges MD Unavailable Unavailable Katiana Hodges MD Unavailable Unavailable Katiana Hodges MD Unavailable Unavailable Katiana Hodges MD Unavailable Unavailable Katiana Hodges MD Unavailable Unavailable Katiana Hodges MD Unavailable Unavailable Katiana Hodges MD Unavailable Unavailable Katiana Hodges MD Unavailable Unavailable Katiana Hodges MD Unavailable Unavailable Katiana Hodges MD Unavailable Unavailable Katiana Hodges MD Unavailable Unavailable Katiana Hodges MD Unavailable Unavailable Katiana Hodges MD Unavailable Unavailable Katiana Hodges MD Unavailable Unavailable Katiana Hodges MD Unavailable Unavailable Katiana Hodges MD Unavailable Unavailable Katiana Hodges MD Unavailable Unavailable Katiana Hodges MD Unavailable Unavailable Katiana Hodges MD Unavailable Unavailable Katiana Hodges MD Unavailable Unavailable Katiana Hodges MD Unavailable Unavailable Katiana Hodges MD Unavailable Unavailable Katiana Hodges MD Unavailable Unavailable Katiana Hodges MD Unavailable Unavailable Katiana Hodges MD Unavailable Unavailable Katiana Hodges MD Unavailable Unavailable Katiana Hodges MD Unavailable Unavailable Ktaiana Hodges MD Unavailable Unavailable Katiana Hodges MD Unavailable Unavailable Katiana Hodges MD Unavailable Unavailable Katiana Hodges MD Unavailable Unavailable Katiana Hodges MD Unavailable Unavailable Katiana Hodges MD Unavailable Unavailable Katiana Hodges MD Unavailable Unavailable Katiana Hodges MD Unavailable Unavailable Katiana Hodges MD Unavailable Unavailable Katiana Hodges MD Unavailable Unavailable Katiana Hodges MD Unavailable Unavailable Katiana Hodges MD Unavailable Unavailable Katiana Hodges MD Unavailable Unavailable Katiana Hodges MD Unavailable Unavailable Katiana Hodges MD Unavailable Unavailable Katiana Hodges MD Unavailable Unavailable Katiana Hodges MD Unavailable Unavailable Katiana Hodges MD Unavailable Unavailable Katiana Hodges MD Unavailable Unavailable Katiana Hodges MD Unavailable Unavailable Katiana Hodges MD Unavailable Unavailable Katiaan Hodges MD Unavailable Unavailable Katiana Hodges MD Unavailable Unavailable Katiana Hodges MD Unavailable Unavailable Katiana Hodges MD Unavailable Unavailable Katiana Hodges MD Unavailable Unavailable Katiana Hodges MD Unavailable Unavailable Katiana Hodges MD Unavailable Unavailable Katiana Hodges MD Unavailable Unavailable Katiana Hodges MD Unavailable Unavailable Katiana Hodges MD Unavailable Unavailable Katiana Hodges MD Unavailable Unavailable Katiana Hodges MD Unavailable Unavailable Katiana Hodges MD Unavailable Unavailable Katiana Hodges MD Unavailable Unavailable Katiana Hodges MD Unavailable Unavailable Katiana Hodges MD Unavailable Unavailable Katiana Hodges MD Unavailable Unavailable Katiana Hodges MD Unavailable Unavailable Katiana Hodges MD Unavailable Unavailable Katiana Hodges MD Unavailable Unavailable Katiana Hodges MD Unavailable Unavailable Katiana Hodges MD Unavailable Unavailable Katiana Hodges MD Unavailable Unavailable Katiana Hodges MD Unavailable Unavailable Katiana Hodges MD Unavailable Unavailable Katiana Hodges MD Unavailable Unavailable Katiana Hodges MD Unavailable Unavailable Katiana Hodges MD Unavailable Unavailable Katiana Hodges MD Unavailable Unavailable Katiana Hodges MD Unavailable Unavailable Katiana Hodges MD Unavailable Unavailable Katiana Hodges MD Unavailable Unavailable Katiana Hodges MD Unavailable Unavailable Katiana Hodges MD Unavailable Unavailable Katiana Hodges MD Unavailable Unavailable Katiana Hodges MD Unavailable Unavailable Katiana Hodges MD Unavailable Unavailable Katiana Hodges MD Unavailable Unavailable Katiana Hodges MD Unavailable Unavailable Katiana Hodges MD Unavailable Unavailable Katiana Hodges MD Unavailable Unavailable Katiana Hodges MD Unavailable Unavailable Katiana Hodges MD Unavailable Unavailable Katiana Hodges MD Unavailable Unavailable Katiana Hodges MD Unavailable Unavailable Katiana Hodges MD Unavailable Unavailable Katiana Hodges MD Unavailable Unavailable Katiana Hodges MD Unavailable Unavailable Katiana Hodges MD Unavailable Unavailable Katiana Hodges MD Unavailable Unavailable Katiana Hodges MD Unavailable Unavailable Katiana Hodges MD Unavailable Unavailable Katiana Hodges MD Unavailable Unavailable Katiana Hodges MD Unavailable Unavailable Katiana Hodges MD Unavailable Unavailable Katiana Hodges MD Unavailable Unavailable Katiana Hodges MD Unavailable Unavailable Katiana Hodges MD Unavailable Unavailable Katiana Hodges MD Unavailable Unavailable Katiana Hodges MD Unavailable Unavailable Katiana Hodges MD Unavailable Unavailable Katiana Hodges MD Unavailable Unavailable Katiana Hodges MD Unavailable Unavailable Katiana Hodges MD Unavailable Unavailable Katiana Hodges MD Unavailable Unavailable Katiana Hodges MD Unavailable Unavailable Katiana Hodges MD Unavailable Unavailable Katiana Hodges MD Unavailable Unavailable Katiana Hodges MD Unavailable Unavailable Katiana Hodges MD Unavailable Unavailable Katiana Hodges MD Unavailable Unavailable Hodges, Katiana Masters MD Unavailable Unavailable Hodges, Katiana Masters MD Unavailable Unavailable Hodges, Katiana Masters MD Unavailable Unavailable Hodges, Katiana Masters MD Unavailable Unavailable Hodges, Katiana Masters MD Unavailable Unavailable Hodges, Katiana Masters MD Unavailable Unavailable Hodges, Katiana Masters MD Unavailable Unavailable Hodges, Katiana Masters MD Unavailable Unavailable Hodges, Katiana Masters MD Unavailable Unavailable Hodges, Katiana Masters MD Unavailable Unavailable Hodges, Katiana Masters MD Unavailable Unavailable Hodges, Katiana Masters MD Unavailable Unavailable Hodges, Katiana Masters MD Unavailable Unavailable Hodges, Katiana Masters MD Unavailable Unavailable Hodges, Katiana Masters MD Unavailable Unavailable Hodges, Katiana Masters MD Unavailable Unavailable Hodges, Katiana Masters MD Unavailable Unavailable Hodges, Katiana Masters MD Unavailable Unavailable Hodges, Katiana Masters MD Unavailable Unavailable Hodges, Katiana Masters MD Unavailable Unavailable Hodges, Katiana Masters MD Unavailable Unavailable Hodges, Katiana Masters MD Unavailable Unavailable Hodges, Katiana Masters MD Unavailable Unavailable Hodges, Katiana Masters MD Unavailable Unavailable Hodges, Katiana Masters MD Unavailable Unavailable Hodges, Katiana Masters MD Unavailable Unavailable Hodges, Katiana Masters MD Unavailable Unavailable Hodges, Katiana Masters MD Unavailable Unavailable Hodges, Katiana Masters MD Unavailable Unavailable Hodges, Katiana Masters MD Unavailable Unavailable Hodges, Katiana Masters MD Unavailable Unavailable Hodges, Katiana Masters MD Unavailable Unavailable Hodges, Katiana Masters MD Unavailable Unavailable Hodges, Katiana Masters MD Unavailable Unavailable Hodges, Katiana Masters MD Unavailable Unavailable Hodges, Katiana Masters MD Unavailable Unavailable Hodges, Katiana Masters MD Unavailable Unavailable Hodges, Katiana Masters MD Unavailable Unavailable Hodges, Katiana Masters MD Unavailable Unavailable Hodges, Katiana Masters MD Unavailable Unavailable Hodges, Katiana Masters MD Unavailable Unavailable Hodges, Katiana Masters MD Unavailable Unavailable Hodges, Katiana Masters MD Unavailable Unavailable Hodges, Katiana Masters MD Unavailable Unavailable Hodges, Katiana Masters MD Unavailable Unavailable Hodges, Katiana Masters MD Unavailable Unavailable Hodges, Katiana Masters MD Unavailable Unavailable Hodges, Katiana Masters MD Unavailable Unavailable Hodges, Katiana Masters MD Unavailable Unavailable Hodges, Katiana Masters MD Unavailable Unavailable Hodges, Katiana Masters MD Unavailable Unavailable Re-disclosure Warning The records that you are about to access may contain information from federally-assisted alcohol or drug abuse programs. If such information is present, then the following federally mandated warning applies: This information has been disclosed to you from records protected by federal confidentiality rules (42 CFR part 2). The federal rules prohibit you from making any further disclosure of this information unless further disclosure is expressly permitted by the written consent of the person to whom it pertains or as otherwise permitted by 42 CFR part 2. A general authorization for the release of medical or other information is NOT sufficient for this purpose. The Federal rules restrict any use of the information to criminally investigate or prosecute any alcohol or drug abuse patient.The records that you are about to access may contain highly sensitive health information, the redisclosure of which is protected by Article 27-F of the [facility] Public Health law. If you continue you may have access to information: Regarding HIV / AIDS; Provided by facilities licensed or operated by the [facility] Office of Mental Health; or Provided by the [facility] Office for People With Developmental Disabilities. If such information is present, then the following [facility] mandated warning applies: This information has been disclosed to you from confidential records which are protected by state law. State law prohibits you from making any further disclosure of this information without the specific written consent of the person to whom it pertains, or as otherwise permitted by law. Any unauthorized further disclosure in violation of state law may result in a fine or fdc sentence or both. A general authorization for the release of medical or other information is NOT sufficient authorization for further disc losure. Allergies and Adverse Reactions Type Description Substance Reaction Status Data Source(s ) No Known Drug Allergies No Known Drug Allergies No Known Drug Aller gies active [facility] ([facility] ) Family History Family Member Name Family Member Gender Family Member Status Date o f Status Description Data Source(s) Unknown Male Problem [facility] ([facility], ) Encounters Encounter Providers Location Date Indications Data Source(s ) Guerrero Hodges MD: [address] [place] [phone], Ph. Attender: Guerrero Hodges MD [facility] 02/10/2021 12:00:00 AM EDT [place] ([facility]) Guerrero Hodges MD: [address] [place] [phone], Ph. Attender: Guerrero Hodges MD [facility] 01/14/2021 12:00:00 AM EDT [place] ([facility]) Guerrero Hodges MD: [address] [place] [phone], Ph. Attender: Guerrero Hodges MD [facility] 01/14/2021 12:00:00 AM EDT [place] ([facility]) Guerrero Hodges MD: [address] [place] [address]6 [address], Ph. Attender: Guerrero Hodges MD [facility] 01/10/2021 12:00:00 AM EDT [place] ([facility]) Guerrero Hodges MD: [address] [place] [address]6 [address], Ph. Attender: Guerrero Hodges MD [facility] 01/10/2021 12:00:00 AM EDT [place] ([facility]) Guerrero Hodges MD: [address] [place] [address]2 504, Ph. Attender: Guerrero Hodges MD [facility] 01/10/2021 12:00:00 AM EDT [place] ([facility]) Guerrero Hodges MD: [address] [place] [address]-0 504, Ph. Attender: Guerrero Hodges MD [facility] 12/29/2020 12:00:00 AM EDT [place] ([facility]) Guerrero Hodges MD: [address] [place] [address]9 [address], Ph. Attender: Guerrero Hodges MD [facility] 12/29/2020 12:00:00 AM EDT [place] ([facility]) Guerrero Hodges MD: [address] [place] [address]0 504, Ph. Attender: Guerrero Hodges MD [facility] 12/29/2020 12:00:00 AM EDT [place] ([facility]) Guerrero Hodges MD: [address] [place] [address]2 504, Ph. Attender: Guerrero Hodges MD [facility] 12/29/2020 12:00:00 AM EDT [place] ([facility]) Guerrero Hodges MD: [address] [place] [address]-6 504, Ph. Attender: Guerrero Hodges MD [facility] 12/13/2020 12:00:00 AM EDT [place] ([facility]) Guerrero Hodges MD: [address] [place] [address]5 504, Ph. Attender: Guerrero Hodges MD [facility] 12/13/2020 12:00:00 AM EDT [place] ([facility]) Guerrero Hodges MD: [address] [place] [address]-6 504, Ph. Attender: Guerrero Hodges MD [facility] 12/13/2020 12:00:00 AM EDT [place] ([facility]) Guerrero Hodges MD: [address] [place] [address]-5 504, Ph. Attender: Guerrero Hodges MD [facility] 12/13/2020 12:00:00 AM EDT [place] ([facility]) Guerrero Hodges MD: [address] [place] [address]-4 504, Ph. Attender: Guerrero Hodges MD [facility] 12/10/2020 12:00:00 AM EDT [place] ([facility]) Guerrero Hodges MD: [address] [place] [address]-9 504, Ph. Attender: Guerrero Hodges MD [facility] 12/10/2020 12:00:00 AM EDT [place] ([facility]) Guerrero Hodges MD: [address] [place] [address]-3 504, Ph. Attender: Guerrero Hodges MD [facility] 12/10/2020 12:00:00 AM EDT [place] ([facility]) Guerrero Hodges MD: [address] [place] [address]-4 504, Ph. Attender: Guerrero Hodges MD [facility] 12/10/2020 12:00:00 AM EDT [place] ([facility]) Guerrero Hodges MD: [address] [place] [address]-0 504, Ph. Attender: Guerrero Hodges MD [facility] 12/10/2020 12:00:00 AM EDT [place] ([facility]) Guerrero Hodges MD: [address] [place] [address]-6 504, Ph. Attender: Guerrero Hodges MD [facility] 10/27/2020 12:00:00 AM EDT [place] ([facility]) Guerrero Hodges MD: [address] [place] [address]-4 504, Ph. Attender: Guerrero Hodges MD [facility] 10/27/2020 12:00:00 AM EDT [place] ([facility]) Guerrero Hodges MD: [address] [place] [address]-5 504, Ph. Attender: Guerrero Hodges MD [facility] 10/27/2020 12:00:00 AM EDT [place] ([facility]) Guerrero Hodges MD: [address] [place] [address]-8 504, Ph. Attender: Guerrero Hodges MD [facility] 10/27/2020 12:00:00 AM EDT [place] ([facility]) Guerrero Hodges MD: [address] [place] [address]-5 504, Ph. Attender: Guerrero Hodges MD [facility] 10/27/2020 12:00:00 AM EDT [place] ([facility]) Guerrero Hodges MD: [address] [place] [address]-8 504, Ph. Attender: Guerrero Hodges MD [facility] 10/27/2020 12:00:00 AM EDT [place] ([facility]) Guerrero Hodges MD: [address] [place] [address]-6 504, Ph. Attender: Guerrero Hodges MD [facility] 10/06/2020 12:00:00 AM EDT [place] ([facility]) Guerrero Hodges MD: [address] [place] [address]-1 504, Ph. Attender: Guerrero Hodges MD [facility] 10/06/2020 12:00:00 AM EDT [place] ([facility]) Guerrero Hodges MD: [address] [place] [address]-5 504, Ph. Attender: Guerrero Hodges MD [facility] 10/06/2020 12:00:00 AM EDT [place] ([facility]) Guerrero Hodges MD: [address] [place] [address]-5 504, Ph. Attender: Guerrero Hodges MD [facility] 10/06/2020 12:00:00 AM EDT [place] ([facility]) Guerrero Hodges MD: [address] [place] [address]-1 504, Ph. Attender: Guerrero Hodges MD [facility] 10/06/2020 12:00:00 AM EDT [place] ([facility]) Guerrero Hodges MD: [address] [place] [address]-3 504, Ph. Attender: Guerrero Hodges MD [facility] 10/06/2020 12:00:00 AM EDT [place] ([facility]) Guerrero Hodges MD: [address] [place] [address]-8 504, Ph. Attender: Guerrero Hodges MD [facility] 10/06/2020 12:00:00 AM EDT [place] ([facility]) Guerrero Hodges MD: [address] [place] [address]-2 504, Ph. Attender: Guerrero Hodges MD [facility] 09/20/2020 12:00:00 AM EDT [place] ([facility]) Guerrero Hodges MD: [address] [place] [address]-0 504, Ph. Attender: Guerrero Hodges MD [facility] 09/20/2020 12:00:00 AM EDT [place] ([facility]) Guerrero Hodges MD: [address] [place] [address]-0 504, Ph. Attender: Guerrero Hodges MD [facility] 09/20/2020 12:00:00 AM EDT [place] ([facility]) Guerrero Hodges MD: [address] [place] [address]-5 504, Ph. Attender: Guerrero Hodges MD [facility] 09/20/2020 12:00:00 AM EDT [place] ([facility]) Guerrero Hodges MD: [address] [place] [address]-9 504, Ph. Attender: Guerrero Hodges MD [facility] 09/20/2020 12:00:00 AM EDT [place] ([facility]) Guerrero Hodges MD: [address] [place] [address]-6 504, Ph. Attender: Guerrero Hodges MD [facility] 09/20/2020 12:00:00 AM EDT [place] ([facility]) Guerrero Hodges MD: [address] [place] [address]-7 504, Ph. Attender: Guerrero Hodges MD [facility] 09/20/2020 12:00:00 AM EDT [place] ([facility]) Guerrero Hodges MD: [address] [place] [address]-8 504, Ph. Attender: Guerrero Hodges MD [facility] 09/20/2020 12:00:00 AM EDT [place] ([facility]) Guerrero Hodges MD: [address] [place] [address]-3 504, Ph. Attender: Guerrero Hodges MD [facility] 09/03/2020 12:00:00 AM EDT [place] ([facility]) Guerrero Hodges MD: [address] [place] [address]-2 504, Ph. Attender: Guerrero Hodges MD [facility] 09/03/2020 12:00:00 AM EDT [place] ([facility]) Guerrero Hodges MD: [address] [place] [address]-3 504, Ph. Attender: Guerrero Hodges MD [facility] 09/03/2020 12:00:00 AM EDT [place] ([facility]) Guerrero Hodges MD: [address] [place] [address]-9 504, Ph. Attender: Guerrero Hodges MD [facility] 09/03/2020 12:00:00 AM EDT [place] ([facility]) Guerrero Hodges MD: [address] [place] [address]-1 504, Ph. Attender: Guerrero Hodges MD [facility] 09/03/2020 12:00:00 AM EDT [place] ([facility]) Guerrero Hodges MD: [address] [place] [address]-5 504, Ph. Attender: Guerrero Hodges MD [facility] 09/03/2020 12:00:00 AM EDT [place] ([facility]) Guerrero Hodges MD: [address] [place] [address]-1 504, Ph. Attender: Guerrero Hodges MD [facility] 09/03/2020 12:00:00 AM EDT [place] ([facility]) Guerrero Hodges MD: [address] [place] [address]-8 504, Ph. Attender: Guerrero Hodges MD [facility] 09/03/2020 12:00:00 AM EDT [place] ([facility]) Guerrero Hodges MD: [address] [place] [address]-6 504, Ph. Attender: Guerrero Hodges MD [facility] 09/03/2020 12:00:00 AM EDT [place] ([facility]) Guerrero Hodges MD: [address] [place] [address]-6 504, Ph. Attender: Guerrero Hodges MD [facility] 08/20/2020 12:00:00 AM EDT [place] ([facility]) Guerrero Hodges MD: [address] [place] [address]-9 504, Ph. Attender: Guerrero Hodges MD [facility] 08/20/2020 12:00:00 AM EDT [place] ([facility]) Guerrero Hodges MD: [address] [place] [address]-7 504, Ph. Attender: Guerrero Hodges MD [facility] 08/20/2020 12:00:00 AM EDT [place] ([facility]) Guerrero Hodges MD: [address] [place] [address]-1 504, Ph. Attender: Guerrero Hodges MD [facility] 08/20/2020 12:00:00 AM EDT [place] ([facility]) Guerrero Hodges MD: [address] [place] [address]-3 504, Ph. Attender: Guerrero Hodges MD [facility] 08/20/2020 12:00:00 AM EDT [place] ([facility]) Guerrero Hodges MD: [address] [place] [address]-1 504, Ph. Attender: Guerreor Hodges MD [facility] 08/20/2020 12:00:00 AM EDT [place] ([facility]) Guerrero Hodges MD: [address] [place] [address]-1 504, Ph. Attender: Guerrero Hodges MD [facility] 08/20/2020 12:00:00 AM EDT [place] ([facility]) Guerrero Hodges MD: [address] [place] [address]-0 504, Ph. Attender: Guerrero Hodges MD [facility] 08/20/2020 12:00:00 AM EDT [place] ([facility]) Guerrero Hodges MD: [address] [place] [address]-3 504, Ph. Attender: Guerrero Hodges MD [facility] 08/20/2020 12:00:00 AM EDT [place] ([facility]) Guerrero Hodges MD: [address] [place] [address]-8 504, Ph. Attender: Guerrero Hodges MD [facility] 08/20/2020 12:00:00 AM EDT [place] ([facility]) Guerrero Hodges MD: [address] [place] [address]-6 504, Ph. Attender: Guerrero Hodges MD [facility] 07/12/2020 12:00:00 AM EDT [place] ([facility]) Guerrero Hodges MD: [address] [place] [address], Ph. Attender: Guerrero Hodges MD [facility] 07/12/2020 12:00:00 AM EDT [place] ([facility]) Guerrero Hodges MD: [address] [place] [address], Ph. Attender: Guerrero Hodges MD [facility] 07/12/2020 12:00:00 AM EDT [place] ([facility]) Guerrero Hodges MD: [address] [place] [address], Ph. Attender: Guerrero Hodges MD [facility] 07/12/2020 12:00:00 AM EDT [place] ([facility]) Guerrero Hodges MD: [address] [place] [address], Ph. Attender: Guerrero Hodges MD [facility] 07/12/2020 12:00:00 AM EDT [place] ([facility]) Guerrero Hodges MD: [address] [place] [address], Ph. Attender: Guerrero Hodges MD [facility] 07/12/2020 12:00:00 AM EDT [place] ([facility]) Guerrero Hodges MD: [address] [place] [address], Ph. Attender: Guerrero Hodges MD [facility] 07/12/2020 12:00:00 AM EDT [place] ([facility]) Guerrero Hodges MD: [address] [place] [address], Ph. Attender: Guerrero Hodges MD [facility] 07/12/2020 12:00:00 AM EDT [place] ([facility]) Guerrero Hodges MD: [address] [place] [address]1 504, Ph. Attender: Guerrero Hodges MD [facility] 07/12/2020 12:00:00 AM EDT [place] ([facility]) Guerrero Hodges MD: [address] [place] [address], Ph. Attender: Guerrero Hodges MD [facility] 07/12/2020 12:00:00 AM EDT [place] ([facility]) Guerrero Hodges MD: [address] [place] [address], Ph. Attender: Guerrero Hodges MD [facility] 07/12/2020 12:00:00 AM EDT [place] ([facility]) Guerrero Hodges MD: [address] [place] [address], Ph. Attender: Guerrero Hodges MD [facility] 05/24/2020 12:00:00 AM EST [place] ([facility]) Guerrero Hodges MD: [address] [place] [address], Ph. Attender: Guerrero Hodges MD [facility] 05/24/2020 12:00:00 AM EST [place] ([facility]) Guerrero Hodges MD: [address] [place] [address], Ph. Attender: Guerreor Hodges MD [facility] 05/24/2020 12:00:00 AM EST [place] ([facility]) Guerrero Hodges MD: [address] [place] [address], Ph. Attender: Guerrero Hodges MD [facility] 05/24/2020 12:00:00 AM EST [place] ([facility]) Guerrero Hodges MD: [address] [place] [address], Ph. Attender: Guerrero Hodges MD [facility] 05/24/2020 12:00:00 AM EST [place] ([facility]) Guerrero Hodges MD: [address] [place] [address], Ph. Attender: Guerrero Hodges MD [facility] 05/24/2020 12:00:00 AM EST [place] ([facility]) Guerrero Hodges MD: [address] [place] [address], Ph. Attender: Guerrero Hodges MD [facility] 05/24/2020 12:00:00 AM EST [place] ([facility]) Guerrero Hodges MD: [address] [place] [address], Ph. Attender: Guerrero Hodges MD [facility] 05/24/2020 12:00:00 AM EST [place] ([facility]) Guerrero Hodges MD: [address] [place] [address], Ph. Attender: Guerrero Hodges MD [facility] 05/24/2020 12:00:00 AM EST [place] ([facility]) Guerrero Hodges MD: [address] [place] [address], Ph. Attender: Guerrero Hodges MD [facility] 05/24/2020 12:00:00 AM EST [place] ([facility]) Guerrero Hodges MD: [address] [place] [address], Ph. Attender: Guerrero Hodges MD [facility] 05/24/2020 12:00:00 AM EST [place] ([facility]) Guerrero Hodges MD: [address] [place] [address], Ph. Attender: Guererro Hodges MD [facility] 05/24/2020 12:00:00 AM EST [place] ([facility]) Unknown [address] [facility] [address] 03/18/2020 12:00:00 AM EST eCW1 ([facility]) Guerrero Hodges MD: [address] [place] [address], Ph. Attender: Guerrero Hodges MD [facility] 03/05/2020 12:00:00 AM EST [place] ([facility]) Guerrero Hodges MD: [address] [place] [address], Ph. Attender: Guerrero Hodges MD [facility] 03/05/2020 12:00:00 AM EST [place] ([facility]) Guerrero Hodges MD: [address] [place] [address], Ph. Attender: Guerrero Hodges MD [facility] 03/05/2020 12:00:00 AM EST [place] ([facility]) Guerrero Hodges MD: [address] [place] [address], Ph. Attender: Guerrero Hodges MD [facility] 03/05/2020 12:00:00 AM EST [place] ([facility]) Guerrero Hodges MD: [address] [place] [address], Ph. Attender: Guerrero Hodges MD [facility] 03/05/2020 12:00:00 AM EST [place] ([facility]) Guerrero Hodges MD: [address] [place] [address], Ph. Attender: Guerrero Hodges MD [facility] 03/05/2020 12:00:00 AM EST [place] ([facility]) Guerrero Hodges MD: [address] [place] [address], Ph. Attender: Guerrero Hodges MD [facility] 03/05/2020 12:00:00 AM EST [place] ([facility]) Guerrero Hodges MD: [address] [place] [address], Ph. Attender: Guerrero Hodges MD [facility] 03/05/2020 12:00:00 AM EST [place] ([facility]) Guerrero Hodges MD: [address] [place] [address], Ph. Attender: Guerrero Hodges MD [facility] 03/05/2020 12:00:00 AM EST [place] ([facility]) Guerrero Hodges MD: [address] [place] [address], Ph. Attender: Guerrero Hodges MD [facility] 03/05/2020 12:00:00 AM EST [place] ([facility]) Guerrero Hodges MD: [address] [place] [address], Ph. Attender: Guerrero Hodges MD [facility] 03/05/2020 12:00:00 AM EST [place] ([facility]) Guerrero Hodges MD: [address] [place] [address], Ph. Attender: Guerrero Hodges MD [facility] 03/05/2020 12:00:00 AM EST [place] ([facility]) Guerrero Hodges MD: [address] [place] [address], Ph. Attender: Guerrero Hodges MD [facility] 03/05/2020 12:00:00 AM EST [place] ([facility]) ([id number]) Est New Patient 60 [address] [place] [address] 03/02/2020 12:00:00 AM EST eCW1 (Replaced by [facility]) Guerrero Hodges MD: [address] [place] [address], Ph. Attender: Guerrero Hodges MD [facility] 02/27/2020 12:00:00 AM EST [place] ([facility]) Guerrero Hodges MD: [address] [place] [address], Ph. Attender: Guerrero Hodges MD [facility] 02/27/2020 12:00:00 AM EST [place] ([facility]) Guerrero Hodges MD: [address] [place] [address], Ph. Attender: Guerrero Hodges MD [facility] 02/27/2020 12:00:00 AM EST [place] ([facility]) Guerrero Hodges MD: [address] [place] [address], Ph. Attender: Guerrero Hodges MD [facility] 02/27/2020 12:00:00 AM EST [place] ([facility]) Guerrero Hodges MD: [address] [place] [address], Ph. Attender: Guerrero Hodges MD [facility] 02/27/2020 12:00:00 AM EST [place] ([facility]) Guerrero Hodges MD: [address] [place] [address], Ph. Attender: Guerrero Hodges MD [facility] 02/27/2020 12:00:00 AM EST [place] ([facility]) Guerrero Hodges MD: [address] [place] [address], Ph. Attender: Guerrero Hodges MD [facility] 02/27/2020 12:00:00 AM EST [place] ([facility]) Guerrero Hodges MD: [address] [place] [address], Ph. Attender: Guerrero Hodges MD [facility] 02/27/2020 12:00:00 AM EST [place] ([facility]) Guerrero Hodges MD: [address] [place] [address], Ph. Attender: Guerrero Hodges MD [facility] 02/27/2020 12:00:00 AM EST [place] ([facility]) Guerrero Hodges MD: [address] [place] [address], Ph. Attender: Guerrero Hodges MD [facility] 02/27/2020 12:00:00 AM EST [place] ([facility]) Guerrero Hodges MD: [address] [place] [address], Ph. Attender: Guerrero Hodges MD [facility] 02/27/2020 12:00:00 AM EST [place] ([facility]) Guerrero Hodges MD: [address] [place] [address], Ph. Attender: Guerrero Hodges MD [facility] 02/27/2020 12:00:00 AM EST [place] ([facility]) Guerrero Hodges MD: [address] [place] [address], Ph. Attender: Guerrero Hodges MD [facility] 02/27/2020 12:00:00 AM EST [place] ([facility]) Guerrero Hdoges MD: [address] [place] [address], Ph. Attender: Guerrero Hodges MD [facility] 02/27/2020 12:00:00 AM EST [place] ([facility]) 02/23/2020 12:00:00 AM EST 09:44:43 AM EST [facility] ([facility]) Outpatient Attender: Guerrero Hodges MD 02/20/2020 04:24:01 PM EST [facility] Guerrero Hodges MD: [address] [place] [address] 504, Ph. Attender: Guerrero Hodges MD [facility] 02/20/2020 12:00:00 AM EST [place] ([facility]) Guerrero Hodges MD: [address] [place] [address], Ph. Attender: Guerrero Hodges MD [facility] 02/20/2020 12:00:00 AM EST [place] ([facility]) Guerrero Hodges MD: [address] [place] [address], Ph. Attender: Guerrero Hodges MD [facility] 02/20/2020 12:00:00 AM EST [place] ([facility]) Guerrero Hodges MD: [address] [place] [address], Ph. Attender: Guerrero Hodges MD [facility] 02/20/2020 12:00:00 AM EST [place] ([facility]) Guerrero Hodges MD: [address] [place] [address]1 [address], Ph. Attender: Guerrero Hodges MD [facility] 02/20/2020 12:00:00 AM EST [place] ([facility]) Guerrero Hodges MD: [address] [place] [address] 504, Ph. Attender: Guerrero Hodges MD [facility] 02/20/2020 12:00:00 AM EST [place] ([facility]) Guerrero Hodges MD: [address] [place] [address], Ph. Attender: Guerrero Hodges MD [facility] 02/20/2020 12:00:00 AM EST [place] ([facility]) Guerrero Hodges MD: [address] [place] [address], Ph. Attender: Guerrero Hodges MD [facility] 02/20/2020 12:00:00 AM EST [place] ([facility]) Guerrero Hodges MD: [address] [place] [address], Ph. Attender: Guerrero Hodges MD [facility] 02/20/2020 12:00:00 AM EST [place] ([facility]) Guerrero Hodges MD: [address] [place] [address], Ph. Attender: Guerrero Hodges MD [facility] 02/20/2020 12:00:00 AM EST [place] ([facility]) Guerrero Hodges MD: [address] [place] [address], Ph. Attender: Guerrero Hodges MD [facility] 02/20/2020 12:00:00 AM EST [place] ([facility]) Guerrero Hodges MD: [address] [place] [address], Ph. Attender: Guerrero Hodges MD [facility] 02/20/2020 12:00:00 AM EST [place] ([facility]) Guerrero Hodges MD: [address] [place] [address]1 504, Ph. Attender: Guerrero Hodges MD [facility] 02/20/2020 12:00:00 AM EST [place] ([facility]) Guerrero Hodges MD: [address] [place] [address], Ph. Attender: Guerrero Hodges MD [facility] 02/20/2020 12:00:00 AM EST [place] ([facility]) Guerrero Hodges MD: [address] [place] [address], Ph. Attender: Guerrero Hodges MD [facility] 02/20/2020 12:00:00 AM EST [place] ([facility]) Outpatient Attender: Guerrero Hodges MD FP 02/03/2020 10:03:01 AM EDT [facility] Outpatient Attender: Guerrero Hodges MD FP 01/30/2020 01:37:01 PM EDT [facility] Outpatient Attender: Guerrero Hodges MD FP 01/29/2020 05:36:00 PM EDT [facility] Outpatient Attender: Guerrero Hodges MD FP 01/20/2020 02:11:01 PM EDT [facility] Outpatient Attender: Guerrero Hodges MD FP 01/16/2020 03:31:03 PM EDT [facility] Outpatient Attender: Guerrero Hodges MD FP 01/16/2020 03:31:02 PM EDT [facility] Outpatient Attender: Guerrero Hodges MD FP 01/16/2020 02:58:00 PM EDT [facility] Outpatient Attender: Guerrero Hodges MD FP 01/16/2020 02:23:02 PM EDT [facility] (WND NP120) New Patient 120 Min [address] [place] [address] 01/15/2020 12:00:00 AM EDT eCW1 (Replaced by [facility]) Outpatient Attender: Guerrero Hodges MD FP 01/14/2020 03:01:01 PM EDT [facility] Outpatient Attender: Guerrero Hodges MD FP 01/03/2020 10:29:00 AM EDT [facility] Outpatient Attender: Guerrero Hodges MD FP 12/30/2019 09:49:01 AM EDT [facility] Outpatient Attender: Guerrero Hodges MD FP 12/20/2019 11:55:01 AM EDT [facility] Outpatient Attender: Guerrero Hodges MD FP 12/20/2019 11:55:00 AM EDT [facility] Outpatient Attender: Guerrero Hodges MD FP 12/19/2019 02:11:01 PM EDT [facility] Outpatient Attender: Guerrero Hodges MD FP 12/19/2019 09:08:03 AM EDT [facility] Outpatient Attender: Guerrero Hodges MD FP 12/19/2019 09:08:00 AM EDT [facility] Outpatient Attender: Guerrero Hodges MD FP 12/19/2019 09:05:00 AM EDT [facility] Outpatient Attender: Guerrero Hodges MD FP 12/19/2019 07:52:02 AM EDT [facility] Outpatient Attender: Guerrero Hodges MD FP 12/18/2019 11:51:04 AM EDT [facility] Outpatient Attender: Guerrero Hodges MD FP 12/18/2019 11:40:01 AM EDT [facility] Outpatient Attender: Guerrero Hodges MD FP 12/18/2019 11:17:02 AM EDT [facility] Outpatient Attender: Guerrero Hodges MD FP 12/17/2019 08:37:00 AM EDT [facility] Outpatient Attender: Guerrero Hodges MD FP 12/17/2019 08:23:00 AM EDT [facility] Outpatient Attender: Guerrero Hodges MD FP 12/15/2019 04:25:01 PM EDT [facility] Outpatient Attender: Guerrero Hodges MD FP 12/15/2019 04:25:00 PM EDT [facility] Immunizations Vaccine Date Status Description Data Source(s) pneumococcal polysaccharide PPV23 05/24/2020 09:47:00 AM EST com pleted 10.5 mL [place] ([facility]) pneumococcal polysaccharide PPV23 05/24/2020 09:47:00 AM EST com pleted 10.5 mL [place] ([facility]) pneumococcal polysaccharide PPV23 05/24/2020 09:47:00 AM EST com pleted 10.5 mL [place] ([facility]) pneumococcal polysaccharide PPV23 05/24/2020 09:47:00 AM EST com pleted 10.5 mL [place] ([facility]) pneumococcal polysaccharide PPV23 05/24/2020 09:47:00 AM EST com pleted 10.5 mL [place] ([facility]) pneumococcal polysaccharide PPV23 05/24/2020 09:47:00 AM EST com pleted 10.5 mL [place] ([facility]) pneumococcal polysaccharide PPV23 05/24/2020 09:47:00 AM EST com pleted 10.5 mL [place] ([facility]) pneumococcal polysaccharide PPV23 05/24/2020 09:47:00 AM EST com pleted 10.5 mL [place] ([facility]) pneumococcal polysaccharide PPV23 05/24/2020 09:47:00 AM EST com pleted 10.5 mL [place] ([facility]) pneumococcal polysaccharide PPV23 05/24/2020 09:47:00 AM EST com pleted 10.5 mL [place] ([facility]) pneumococcal polysaccharide PPV23 05/24/2020 09:47:00 AM EST com pleted 10.5 mL [place] ([facility]) New in 2011. IIV4 05/24/2020 09:46:00 AM EST completed .5 mL [place] ([facility]) New in 2011. IIV4 05/24/2020 09:46:00 AM EST completed .5 mL [place] ([facility]) New in 2011. IIV4 05/24/2020 09:46:00 AM EST completed .5 mL [place] ([facility]) New in 2011. IIV4 05/24/2020 09:46:00 AM EST completed .5 mL [place] ([facility]) New in 2011. IIV4 05/24/2020 09:46:00 AM EST completed .5 mL [place] ([facility]) New in 2011. IIV4 05/24/2020 09:46:00 AM EST completed .5 mL [place] ([facility]) New in 2011. IIV4 05/24/2020 09:46:00 AM EST completed .5 mL [place] ([facility]) New in 2011. IIV4 05/24/2020 09:46:00 AM EST completed .5 mL [place] ([facility]) New in 2011. IIV4 05/24/2020 09:46:00 AM EST completed .5 mL [place] ([facility]) New in 2011. IIV4 05/24/2020 09:46:00 AM EST completed .5 mL [place] ([facility]) New in 2011. IIV4 05/24/2020 09:46:00 AM EST completed .5 mL [place] ([facility]) New in 2011. IIV4 04/20/2020 10:09:00 AM EST completed 04/20/19 210.5 [place] ([facility]) New in 2011. IIV4 04/20/2020 10:09:00 AM EST completed 04/20/19 210.5 [place] ([facility]) New in 2011. IIV4 04/20/2020 10:09:00 AM EST completed 04/20/19 210.5 [place] ([facility]) New in 2011. IIV4 04/20/2020 10:09:00 AM EST completed 04/20/19 210.5 [place] ([facility]) New in 2011. IIV4 04/20/2020 10:09:00 AM EST completed 04/20/19 210.5 [place] ([facility]) New in 2011. IIV4 04/20/2020 10:09:00 AM EST [facility]20[facility] 210[facility] IIV4 04/20/2020 10:09:00 AM EST completed 04/20/19 210.5 [facility] New [facility] 2011. IIV4 04/20/2020 10:09:00 AM EST completed 04/20/19 210.5 [place] ([facility]) New in 2011. IIV4 04/20/2020 10:09:00 AM EST completed 04/20/19 210.5 [facility] New [facility] IIV4 04/20/2020 10:09:00 AM EST completed 04/20/19 210.5 [facility] New [facility] 2011. IIV4 04/20/2020 10:09:00 AM EST completed 04/20/19 210.5 [place] ([facility]) New in 2011. IIV4 04/20/2020 10:09:00 AM EST completed 04/20/19 210.5 [place] ([facility]) Medications Medication Brand Name Start Date Product Form Dose Route Admi nistrative Instructions Pharmacy Instructions Status Indications Reaction Description Data Source(s) Levemir FlexTouch 100 UNIT/ML Levemir FlexTouch 02/23/2020 12:00:00 AM EST 0 {in} completed [facility] ([facility]) Carvedilol Phosphate ER 10 MG Carvedilol Phosphate ER 2019 12:00:00 AM EST 1.0 {tablet} completed N [facility] ([facility]) HydrALAZINE HCl 25 MG HydrALAZINE HCl 02/23/2020 12:00:00 AM EST 1.0 {tablet} completed [facility] ( [facility]) Potassium Chloride Noni ER 20 MEQ Potassium Chloride Noni ER 02/23/2020 12:00:00 AM EST 1.0 {tablet} completed N [facility] ([facility]) Simvastatin 20 MG Simvastatin 02/23/2020 12:00:00 AM EST 0 {tabl et} completed [facility] ([facility]) Pen Chester 31 G X 5 MM Pen Chester 02/23/2020 12:00:00 AM EST completed [facility] ([facility]) AmLODIPine Besylate 10 MG AmLODIPine Besylate 02/23/2020 12:00:00 A M EST 1.0 {tablet} completed [facility] ([facility]) Potassium Chloride 10 MEQ Extended Relea se Oral Tablet potassium chloride ER 10 mEq tablet,extended release TAKE TWO TABLETS BY MOUTH ONCE DAILY potassium chloride ER 10 mEq tablet,extended release TAKE TWO TABLETS BY MOUTH ONCE DAILY completed potassium chlo ride 10 MEQ Extended Release Oral Tablet [place] ([facility]) Metformin hydrochloride 1000 MG Oral Tab let metformin 1,000 mg tablet TAKE ONE TABLET BY MOUTH TWICE DAILY metformin 1,000 mg tablet TAKE ONE TABLE T BY MOUTH TWICE DAILY completed me tformin hydrochloride 1000 MG Oral Tablet [place] ([facility]) OneTouch Ultra Blue Test Strip 379791 completed OneTouch Ultra Blue Test Strip [place] ([facility]) clopidogrel 75 MG Oral Tablet clopidogre l 75 mg tablet TAKE ONE TABLET BY MOUTH ONCE DAILY clopidogrel 75 mg tablet TAKE ONE TABLET BY MOUTH ONCE DAILY completed clopidogrel 75 MG Oral Ta blet [place] ([facility]) Pen Needle 31 gauge x 3/16" 287230 com pleted Pen Needle 31 gauge x 3/16" [place] ([facility]) Pen Needle 31 gauge x 3/16" [id number] com pleted Pen Needle 31 gauge x 3/16" [place] ([facility]) Linagliptin 5 MG Oral Tablet [Tradjenta] Tradjenta 5 mg tablet TAKE ONE TABLET BY MOUTH ONCE DAILY Tradjenta 5 mg tablet TAKE ONE TABLET BY MOUTH ONCE DAILY completed linagliptin 5 MG Oral Tablet [Tradjenta] [facility] ([facility]) Pen Needle 31 gauge x 5/16" USE DIRECTED WITH INSULIN [id number] completed Pen Needle 31 gauge x 5/16" ATHE ([facility]) 24 HR carvedilol phosphate 10 MG Extende d Release Oral Capsule carvedilol phosphate ER 10 mg capsule,[id number] multiphase TAKE ONE CAPSULE BY MOUTH ONCE DAILY carvedilol phosphate ER 10 mg capsule,ex [id number] multiphase TAKE ONE CAPSULE BY MOUTH ONCE DAILY compl eted 24 HR carvedilol phosphate 10 MG Extended Release Oral Capsule [facility] ([facility]) OneTouch Ultra Blue Test Strip 114205 completed OneTouch Ultra Blue Test Strip [facility] ([facility]) insulin detemir 100 UNT/ML Injectable So lution [Levemir] Levemir U-100 Insulin 100 unit/mL subcutaneous solution INJECT 10 UNITS SUBCUTANEOUSLY TWICE DAILY Levemir U-100 Insulin 100 unit/mL subcutaneous solution INJECT 10 UNITS SUBCUTANEOUSLY TWICE DAILY completed insulin detemir 100 UNT/ML Injectable Solution [Levemir] [place] ([facility]) Metformin hydrochloride 1000 MG Oral Tab let metformin 1,000 mg tablet TAKE ONE TABLET BY MOUTH TWICE DAILY metformin 1,000 mg tablet TAKE ONE TABLE T BY MOUTH TWICE DAILY completed me tformin hydrochloride 1000 MG Oral Tablet [facility] ([facility]) Furosemide 40 MG Oral Tablet furosemide 40 mg tablet TAKE ONE TABLET BY MOUTH TWICE DAILY FOR THREE DAYS THEN ONE TABLET EVERY MORNING furosemide 40 mg tablet TAKE ONE TABLET BY MOUTH TWICE DAILY FOR THREE DAYS THEN ONE TABLET EVERY MORNING completed furosemide 40 MG Oral Tablet [facility] ([facility]) Potassium Chloride 10 MEQ Extended Relea se Oral Tablet potassium chloride ER 10 mEq tablet,extended release TAKE TWO TABLETS BY MOUTH ONCE DAILY potassium chloride ER 10 mEq tablet,extended release TAKE TWO TABLETS BY MOUTH ONCE DAILY completed potass ium chloride 10 MEQ Extended Release Oral Tablet [facility] ([facility]) Levemir FlexTouch U-100 Insuln 80 units at bedtime completed Levemir [facility] ([facility]) Simvastatin 80 MG Oral Tablet simvastati n 80 mg tablet TAKE ONE TABLET BY MOUTH ONCE DAILY simvastatin 80 mg tablet TAKE ONE TABLET BY MOUTH ONCE DAILY completed simvastatin 80 MG Oral Ta blet [facility] ([facility]) 24 HR carvedilol phosphate 10 MG Extende d Release Oral Capsule carvedilol phosphate ER 10 mg capsule,[id number] multiphase TAKE ONE CAPSULE BY MOUTH ONCE DAILY carvedilol phosphate ER 10 mg capsule,ex [id number] multiphase TAKE ONE CAPSULE BY MOUTH ONCE DAILY compl eted 24 HR carvedilol phosphate 10 MG Extended Release Oral Capsule [facility] ([facility]) potassium chloride ER 10 mEq tablet,exte nded release(part/cryst) TAKE TWO TABLETS BY MOUTH ONCE DAILY [id number] completed Microencapsulated potassium chloride 10 MEQ Extended Release Oral Tablet [facility] ([facility]) OneTouch Ultra Blue Test Strip [id number] completed OneTouch Ultra Blue Test Strip [facility] ([facility]) clopidogrel 75 MG Oral Tablet clopidogre l 75 mg tablet TAKE ONE TABLET BY MOUTH ONCE DAILY clopidogrel 75 mg tablet TAKE ONE TABLET BY MOUTH ONCE DAILY completed clopidogrel 75 MG Oral Ta blet [facility] ([facility]) OneTouch Ultra2 Meter Check BG qid. completed OneTouch Ultra2 Meter [facility] ([facility]) potassium chloride ER 10 mEq tablet,exte nded release(part/cryst) TAKE TWO TABLETS BY MOUTH ONCE DAILY [id number] completed Microencapsulated potassium chloride 10 MEQ Extended Release Oral Tablet [facility] ([facility]) insulin detemir 100 UNT/ML Injectable So lution [Levemir] Levemir U-100 Insulin 100 unit/mL subcutaneous solution INJECT 10 UNITS SUBCUTANEOUSLY TWICE DAILY Levemir U-100 Insulin 100 unit/mL subcutaneous solution INJECT 10 UNITS SUBCUTANEOUSLY TWICE DAILY completed insulin detemir 100 UNT/ML Injectable Solution [Levemir] [place] ([facility]) potassium chloride ER 20 mEq tablet,extended release(part/cryst) [id number] 0 completed Microencapsulat ed potassium chloride 20 MEQ Extended Release Oral Tablet [facility] ([facility]) Pen Needle 31 gauge x 5/16" USE DIRECTED WITH INSULIN [id number] completed Pen Needle 31 gauge x 5/16" ATHE NA ([facility]) insulin detemir 100 UNT/ML Injectable So lution [Levemir] Levemir U-100 Insulin 100 unit/mL subcutaneous solution INJECT 10 UNITS SUBCUTANEOUSLY TWICE DAILY Levemir U-100 Insulin 100 unit/mL subcutaneous solution INJECT 10 UNITS SUBCUTANEOUSLY TWICE DAILY completed insulin detemir 100 UNT/ML Injectable Solution [Levemir] [place] ([facility]) gabapentin 100 MG Oral Capsule gabapenti n 100 mg capsule TAKE ONE CAPSULE BY MOUTH TWICE DAILY gabapentin 100 mg capsule TAKE ONE CAPSU LE BY MOUTH TWICE DAILY completed gabapentin 100 M G Oral Capsule [place] ([facility]) Metformin hydrochloride 1000 MG Oral Tab let metformin 1,000 mg tablet TAKE ONE TABLET BY MOUTH TWICE DAILY metformin 1,000 mg tablet TAKE ONE TABLE T BY MOUTH TWICE DAILY completed me tformin hydrochloride 1000 MG Oral Tablet [place] ([facility]) Pen Needle 31 gauge x 3/16" [id number] com pleted Pen Needle 31 gauge x 3/16" [place] ([facility]) Metformin hydrochloride 1000 MG Oral Tab let metformin 1,000 mg tablet TAKE ONE TABLET BY MOUTH TWICE DAILY metformin 1,000 mg tablet TAKE ONE TABLE T BY MOUTH TWICE DAILY completed me tformin hydrochloride 1000 MG Oral Tablet [place] ([facility]) potassium chloride ER 10 mEq tablet,exte nded release(part/cryst) TAKE TWO TABLETS BY MOUTH ONCE DAILY [id number] completed Microencapsulated potassium chloride 10 MEQ Extended Release Oral Tablet [facility] ([facility]) Lisinopril 40 MG Oral Tablet lisinopril 40 mg tablet TAKE ONE TABLET BY MOUTH ONCE DAILY lisinopril 40 mg tablet TAKE ONE TABLET BY MOUTH ONCE DAILY completed lisinopril 40 MG Oral Tab let [place] ([facility]) Pen Needle 31 gauge x 5/16" USE DIRECTED WITH INSULIN [id number] completed Pen Needle 31 gauge x 5/16" ATHE NA ([facility]) 24 HR carvedilol phosphate 10 MG Extende d Release Oral Capsule carvedilol phosphate ER 10 mg capsule,[id number] multiphase TAKE ONE CAPSULE BY MOUTH ONCE DAILY carvedilol phosphate ER 10 mg capsule,ex [id number] multiphase TAKE ONE CAPSULE BY MOUTH ONCE DAILY compl eted 24 HR carvedilol phosphate 10 MG Extended Release Oral Capsule [place] ([facility]) Linagliptin 5 MG Oral Tablet [Tradjenta] Tradjenta 5 mg tablet TAKE ONE TABLET BY MOUTH ONCE DAILY Tradjenta 5 mg tablet TAKE ONE TABLET BY MOUTH ONCE DAILY completed linagliptin 5 MG Oral Tablet [Tradjenta] [place] ([facility]) potassium chloride ER 10 mEq tablet,exte nded release(part/cryst) TAKE TWO TABLETS BY MOUTH ONCE DAILY [id number] completed Microencapsulated potassium chloride 10 MEQ Extended Release Oral Tablet [facility] ([facility]) Omeprazole 20 MG Delayed Release Oral Ca psule omeprazole 20 mg capsule,delayed release TAKE ONE CAPSULE BY MOUTH ONE-HALF HOUR BEFORE DINNER omeprazole 20 mg capsule,delayed release TAKE ONE CAPSULE BY MOUTH ONE-HALF HOUR BEFORE DINNER completed omeprazole 20 MG Delayed Release Oral Capsule [place] ([facility]) Pen Needle 31 gauge x 5/16" USE DIRECTED WITH INSULIN [id number] completed Pen Needle 31 gauge x 5/16" [facility] ([facility]) insulin detemir 100 UNT/ML Injectable So lution [Levemir] Levemir U-100 Insulin 100 unit/mL subcutaneous solution INJECT 10 UNITS SUBCUTANEOUSLY TWICE DAILY Levemir U-100 Insulin 100 unit/mL subcutaneous solution INJECT 10 UNITS SUBCUTANEOUSLY TWICE DAILY completed insulin detemir 100 UNT/ML Injectable Solution [Levemir] [place] ([facility]) insulin detemir 100 UNT/ML Injectable So lution [Levemir] Levemir U-100 Insulin 100 unit/mL subcutaneous solution INJECT 10 UNITS SUBCUTANEOUSLY TWICE DAILY Levemir U-100 Insulin 100 unit/mL subcutaneous solution INJECT 10 UNITS SUBCUTANEOUSLY TWICE DAILY completed insulin detemir 100 UNT/ML Injectable Solution [Levemir] [place] ([facility]) Clindamycin 150 MG Oral Capsule clindamycin HCl 150 mg capsule clindamycin HCl 150 mg capsule completed clindam ycin 150 MG Oral Capsule [place] ([facility]) insulin detemir 100 UNT/ML Injectable So lution [Levemir] Levemir U-100 Insulin 100 unit/mL subcutaneous solution INJECT 10 UNITS SUBCUTANEOUSLY TWICE DAILY Levemir U-100 Insulin 100 unit/mL subcutaneous solution INJECT 10 UNITS SUBCUTANEOUSLY TWICE DAILY completed insulin detemir 100 UNT/ML Injectable Solution [Levemir] [place] ([facility]) Lisinopril 40 MG Oral Tablet lisinopril 40 mg tablet TAKE ONE TABLET BY MOUTH ONCE DAILY lisinopril 40 mg tablet TAKE ONE TABLET BY MOUTH ONCE DAILY completed lisinopril 40 MG Oral Tab let [place] ([facility]) Hydrochlorothiazide 25 MG Oral Tablet hy drochlorothiazide 25 mg tablet TAKE ONE TABLET BY MOUTH ONCE DAILY hydrochlorothiazide 25 mg tablet TAKE ON E TABLET BY MOUTH ONCE DAILY completed hydrochlorothiazide 25 MG Oral Tablet [place] ([facility]) Hydrochlorothiazide 25 MG Oral Tablet hy drochlorothiazide 25 mg tablet Take 1 tablet every day by oral route. hydrochlorothiazide 25 mg tablet Take 1 tablet every day by oral route. 1 completed hydrochlorothiazide 25 MG Oral Tablet [place] ([facility]) Clindamycin 150 MG Oral Capsule clindamycin HCl 150 mg capsule clindamycin HCl 150 mg capsule completed clindam ycin 150 MG Oral Capsule [facility] ([facility]) OneTouch Ultra Blue Test Strip [id number] completed OneTouch Ultra Blue Test Strip [facility] ([facility]) Simvastatin 80 MG Oral Tablet simvastati n 80 mg tablet TAKE ONE TABLET BY MOUTH ONCE DAILY simvastatin 80 mg tablet TAKE ONE TABLET BY MOUTH ONCE DAILY completed simvastatin 80 MG Oral Ta blet [facility] ([facility]) potassium chloride ER 20 mEq tablet,extended release(part/cryst) [id number] 0 completed Microencapsulat ed potassium chloride 20 MEQ Extended Release Oral Tablet [place] ([facility]) Clindamycin 300 MG Oral Capsule clindamy sarah beth HCl 300 mg capsule TAKE ONE CAPSULE BY MOUTH THREE TIMES DAILY FOR 7 DAYS clindamycin HCl 300 mg capsule TAKE ONE CAPSULE BY MOUTH THREE TIMES DAILY FOR 7 DAYS completed clindamycin 300 MG Oral Capsule [place] ([facility]) Furosemide 40 MG Oral Tablet furosemide 40 mg tablet TAKE ONE TABLET BY MOUTH TWICE DAILY FOR THREE DAYS THEN ONE TABLET EVERY MORNING furosemide 40 mg tablet TAKE ONE TABLET BY MOUTH TWICE DAILY FOR THREE DAYS THEN ONE TABLET EVERY MORNING completed furosemide 40 MG Oral Tablet [place] ([facility]) potassium chloride ER 20 mEq tablet,extended release(part/cryst) 13546 0 completed Microencapsulat ed potassium chloride 20 MEQ Extended Release Oral Tablet [place] ([facility]) Lisinopril 40 MG Oral Tablet lisinopril 40 mg tablet TAKE ONE TABLET BY MOUTH ONCE DAILY lisinopril 40 mg tablet TAKE ONE TABLET BY MOUTH ONCE DAILY completed lisinopril 40 MG Oral Tab let [place] ([facility]) gabapentin 100 MG Oral Capsule gabapenti n 100 mg capsule TAKE ONE CAPSULE BY MOUTH TWICE DAILY gabapentin 100 mg capsule TAKE ONE CAPSU LE BY MOUTH TWICE DAILY completed gabapentin 100 M G Oral Capsule [place] ([facility]) Clindamycin 150 MG Oral Capsule clindamycin HCl 150 mg capsule clindamycin HCl 150 mg capsule completed clindam ycin 150 MG Oral Capsule [facility] ([facility]) Hydrochlorothiazide 25 MG Oral Tablet hy drochlorothiazide 25 mg tablet TAKE ONE TABLET BY MOUTH ONCE DAILY hydrochlorothiazide 25 mg tablet TAKE ON E TABLET BY MOUTH ONCE DAILY completed hydrochlorothiazide 25 MG Oral Tablet [facility] ([facility]) Clindamycin 300 MG Oral Capsule clindamy sarah beth HCl 300 mg capsule TAKE ONE CAPSULE BY MOUTH THREE TIMES DAILY FOR 7 DAYS clindamycin HCl 300 mg capsule TAKE ONE CAPSULE BY MOUTH THREE TIMES DAILY FOR 7 DAYS completed clindamycin 300 MG Oral Capsule [facility] ([facility]) Clindamycin 150 MG Oral Capsule clindamycin HCl 150 mg capsule clindamycin HCl 150 mg capsule completed clindam ycin 150 MG Oral Capsule [facility] ([facility]) Metformin hydrochloride 1000 MG Oral Tab let metformin 1,000 mg tablet TAKE ONE TABLET BY MOUTH TWICE DAILY metformin 1,000 mg tablet TAKE ONE TABLE T BY MOUTH TWICE DAILY completed me tformin hydrochloride 1000 MG Oral Tablet [facility] ([facility]) Pen Needle 31 gauge x 5/16" USE DIRECTED WITH INSULIN [id number] completed Pen Needle 31 gauge x 5/16" ATHE [place] ([facility]) Linagliptin 5 MG Oral Tablet [Tradjenta] Tradjenta 5 mg tablet TAKE ONE TABLET BY MOUTH ONCE DAILY Tradjenta 5 mg tablet TAKE ONE TABLET BY MOUTH ONCE DAILY completed linagliptin 5 MG Oral Tablet [Tradjenta] [facility] ([facility]) Cephalexin 500 MG Oral Capsule cephalexi n 500 mg capsule TAKE ONE CAPSULE BY MOUTH EVERY 6 HOURS cephalexin 500 mg capsule TAKE ONE CAPSU LE BY MOUTH EVERY 6 HOURS completed cephalexin 500 M G Oral Capsule [facility] ([facility]) insulin detemir 100 UNT/ML Injectable So lution [Levemir] Levemir U-100 Insulin 100 unit/mL subcutaneous solution INJECT 10 UNITS SUBCUTANEOUSLY TWICE DAILY Levemir U-100 Insulin 100 unit/mL subcutaneous solution INJECT 10 UNITS SUBCUTANEOUSLY TWICE DAILY completed insulin detemir 100 UNT/ML Injectable Solution [Levemir] [place] ([facility]) Potassium Chloride 10 MEQ Extended Relea se Oral Tablet potassium chloride ER 10 mEq tablet,extended release TAKE TWO TABLETS BY MOUTH ONCE DAILY potassium chloride ER 10 mEq tablet,extended release TAKE TWO TABLETS BY MOUTH ONCE DAILY completed potass ium chloride 10 MEQ Extended Release Oral Tablet [place] ([facility]) Furosemide 40 MG Oral Tablet furosemide 40 mg tablet TAKE ONE TABLET BY MOUTH TWICE DAILY FOR THREE DAYS THEN ONE TABLET EVERY MORNING furosemide 40 mg tablet TAKE ONE TABLET BY MOUTH TWICE DAILY FOR THREE DAYS THEN ONE TABLET EVERY MORNING completed furosemide 40 MG Oral Tablet [facility] ([facility]) OneTouch Ultra2 Meter USE DIRECTED TO CHECK BLOOD G LUCOSE FOUR TIMES DAILY [id number] completed OneTouch Ultra2 Meter [facility] ([facility]) potassium chloride ER 10 mEq tablet,exte nded release(part/cryst) TAKE TWO TABLETS BY MOUTH ONCE DAILY 015745 completed Microencapsulated potassium chloride 10 MEQ Extended Release Oral Tablet [facility] ([facility]) Acetaminophen 325 MG / Hydrocodone Josue trate 5 MG Oral Tablet hydrocodone 5 mg- acetaminophen 325 mg tablet hydrocodone 5 mg-acetaminophen 325 mg tablet completed acetaminophen 325 MG / hydrocodone bitartrate 5 MG Oral Tablet [facility] ([facility]) potassium chloride ER 10 mEq tablet,exte nded release(part/cryst) TAKE TWO TABLETS BY MOUTH ONCE DAILY [id number] completed Microencapsulated potassium chloride 10 MEQ Extended Release Oral Tablet [facility] ([facility]) Pen Needle 31 gauge x 3/16" [id number] com pleted Pen Needle 31 gauge x 3/16" [place] ([facility]) insulin detemir 100 UNT/ML Injectable So lution [Levemir] Levemir U-100 Insulin 100 unit/mL subcutaneous solution INJECT 10 UNITS SUBCUTANEOUSLY TWICE DAILY Levemir U-100 Insulin 100 unit/mL subcutaneous solution INJECT 10 UNITS SUBCUTANEOUSLY TWICE DAILY completed insulin detemir 100 UNT/ML Injectable Solution [Levemir] [facility] ([facility]) Clindamycin 150 MG Oral Capsule clindamycin HCl 150 mg capsule clindamycin HCl 150 mg capsule completed clindam ycin 150 MG Oral Capsule [place] ([facility]) Hydrochlorothiazide 25 MG Oral Tablet hy drochlorothiazide 25 mg tablet Take 1 tablet every day by oral route. hydrochlorothiazide 25 mg tablet Take 1 tablet every day by oral route. 1 completed hydrochlorothiazide 25 MG Oral Tablet [place] ([facility]) Metformin hydrochloride 1000 MG Oral Tab let metformin 1,000 mg tablet TAKE ONE TABLET BY MOUTH TWICE DAILY metformin 1,000 mg tablet TAKE ONE TABLE T BY MOUTH TWICE DAILY completed me tformin hydrochloride 1000 MG Oral Tablet [place] ([facility]) gabapentin 100 MG Oral Capsule gabapenti n 100 mg capsule TAKE ONE CAPSULE BY MOUTH TWICE DAILY gabapentin 100 mg capsule TAKE ONE CAPSU LE BY MOUTH TWICE DAILY completed gabapentin 100 M G Oral Capsule [facility] ([facility]) clopidogrel 75 MG Oral Tablet clopidogre l 75 mg tablet TAKE ONE TABLET BY MOUTH ONCE DAILY clopidogrel 75 mg tablet TAKE ONE TABLET BY MOUTH ONCE DAILY completed clopidogrel 75 MG Oral Ta blet [facility] ([facility]) Simvastatin 80 MG Oral Tablet simvastati n 80 mg tablet TAKE ONE TABLET BY MOUTH ONCE DAILY simvastatin 80 mg tablet TAKE ONE TABLET BY MOUTH ONCE DAILY completed simvastatin 80 MG Oral Ta blet [facility] ([facility]) Acetaminophen 325 MG / Hydrocodone Josue trate 5 MG Oral Tablet hydrocodone 5 mg- acetaminophen 325 mg tablet hydrocodone 5 mg-acetaminophen 325 mg tablet completed acetaminophen 325 MG / hydrocodone bitartrate 5 MG Oral Tablet [place] ([facility]) Lisinopril 40 MG Oral Tablet lisinopril 40 mg tablet TAKE ONE TABLET BY MOUTH ONCE DAILY lisinopril 40 mg tablet TAKE ONE TABLET BY MOUTH ONCE DAILY completed lisinopril 40 MG Oral Tab let [place] ([facility]) Metformin hydrochloride 1000 MG Oral Tab let metformin 1,000 mg tablet TAKE ONE TABLET BY MOUTH TWICE DAILY metformin 1,000 mg tablet TAKE ONE TABLE T BY MOUTH TWICE DAILY completed me tformin hydrochloride 1000 MG Oral Tablet [place] ([facility]) Hydrochlorothiazide 25 MG Oral Tablet hy drochlorothiazide 25 mg tablet TAKE ONE TABLET BY MOUTH ONCE DAILY hydrochlorothiazide 25 mg tablet TAKE ON E TABLET BY MOUTH ONCE DAILY completed hydrochlorothiazide 25 MG Oral Tablet [place] ([facility]) clopidogrel 75 MG Oral Tablet clopidogre l 75 mg tablet TAKE ONE TABLET BY MOUTH ONCE DAILY clopidogrel 75 mg tablet TAKE ONE TABLET BY MOUTH ONCE DAILY completed clopidogrel 75 MG Oral Ta blet [facility] ([facility]) OneTouch Ultra2 Meter USE DIRECTED TO CHECK BLOOD G LUCOSE FOUR TIMES DAILY 388321 completed OneTouch Ultra2 Meter [facility] ([facility]) insulin detemir 100 UNT/ML Injectable So lution [Levemir] Levemir U-100 Insulin 100 unit/mL subcutaneous solution INJECT 10 UNITS SUBCUTANEOUSLY TWICE DAILY Levemir U-100 Insulin 100 unit/mL subcutaneous solution INJECT 10 UNITS SUBCUTANEOUSLY TWICE DAILY completed insulin detemir 100 UNT/ML Injectable Solution [Levemir] [facility] ([facility]) OneTouch Ultra Blue Test Strip [id number] completed OneTouch Ultra Blue Test Strip [facility] ([facility]) Linagliptin 5 MG Oral Tablet [Tradjenta] Tradjenta 5 mg tablet TAKE ONE TABLET BY MOUTH ONCE DAILY Tradjenta 5 mg tablet TAKE ONE TABLET BY MOUTH ONCE DAILY completed linagliptin 5 MG Oral Tablet [Tradjenta] [facility] ([facility]) Simvastatin 80 MG Oral Tablet simvastati n 80 mg tablet TAKE ONE TABLET BY MOUTH ONCE DAILY simvastatin 80 mg tablet TAKE ONE TABLET BY MOUTH ONCE DAILY completed simvastatin 80 MG Oral Ta blet [facility] ([facility]) Omeprazole 20 MG Delayed Release Oral Ca psule omeprazole 20 mg capsule,delayed release TAKE ONE CAPSULE BY MOUTH ONE-HALF HOUR BEFORE DINNER omeprazole 20 mg capsule,delayed release TAKE ONE CAPSULE BY MOUTH ONE-HALF HOUR BEFORE DINNER completed omeprazole 20 MG Delayed Release Oral Capsule [facility] ([facility]) Hydrochlorothiazide 25 MG Oral Tablet hy drochlorothiazide 25 mg tablet TAKE ONE TABLET BY MOUTH ONCE DAILY hydrochlorothiazide 25 mg tablet TAKE ON E TABLET BY MOUTH ONCE DAILY completed hydrochlorothiazide 25 MG Oral Tablet [facility] ([facility]) gabapentin 100 MG Oral Capsule gabapenti n 100 mg capsule TAKE ONE CAPSULE BY MOUTH TWICE DAILY gabapentin 100 mg capsule TAKE ONE CAPSU LE BY MOUTH TWICE DAILY completed gabapentin 100 M G Oral Capsule [facility] ([facility]) Simvastatin 80 MG Oral Tablet simvastati n 80 mg tablet TAKE ONE TABLET BY MOUTH ONCE DAILY simvastatin 80 mg tablet TAKE ONE TABLET BY MOUTH ONCE DAILY completed simvastatin 80 MG Oral Ta blet [facility] ([facility]) insulin detemir 100 UNT/ML Injectable So lution [Levemir] Levemir U-100 Insulin 100 unit/mL subcutaneous solution INJECT 10 UNITS SUBCUTANEOUSLY TWICE DAILY Levemir U-100 Insulin 100 unit/mL subcutaneous solution INJECT 10 UNITS SUBCUTANEOUSLY TWICE DAILY completed insulin detemir 100 UNT/ML Injectable Solution [Levemir] [place] ([facility]) Metformin hydrochloride 1000 MG Oral Tab let metformin 1,000 mg tablet TAKE ONE TABLET BY MOUTH TWICE DAILY metformin 1,000 mg tablet TAKE ONE TABLE T BY MOUTH TWICE DAILY completed me tformin hydrochloride 1000 MG Oral Tablet [place] ([facility]) 24 HR carvedilol phosphate 10 MG Extende d Release Oral Capsule carvedilol phosphate ER 10 mg capsule,ext.[id number] multiphase TAKE ONE CAPSULE BY MOUTH ONCE DAILY carvedilol phosphate ER 10 mg capsule,ex [id number] multiphase TAKE ONE CAPSULE BY MOUTH ONCE DAILY compl eted 24 HR carvedilol phosphate 10 MG Extended Release Oral Capsule [facility] ([facility]) Lisinopril 40 MG Oral Tablet lisinopril 40 mg tablet TAKE ONE TABLET BY MOUTH ONCE DAILY lisinopril 40 mg tablet TAKE ONE TABLET BY MOUTH ONCE DAILY completed lisinopril 40 MG Oral Tab let [facility] ([facility]) Furosemide 40 MG Oral Tablet furosemide 40 mg tablet TAKE ONE TABLET BY MOUTH TWICE DAILY FOR THREE DAYS THEN ONE TABLET EVERY MORNING furosemide 40 mg tablet TAKE ONE TABLET BY MOUTH TWICE DAILY FOR THREE DAYS THEN ONE TABLET EVERY MORNING completed furosemide 40 MG Oral Tablet [facility] ([facility]) Omeprazole 20 MG Delayed Release Oral Ca psule omeprazole 20 mg capsule,delayed release TAKE ONE CAPSULE BY MOUTH ONE-HALF HOUR BEFORE DINNER omeprazole 20 mg capsule,delayed release TAKE ONE CAPSULE BY MOUTH ONE-HALF HOUR BEFORE DINNER completed omeprazole 20 MG Delayed Release Oral Capsule [facility] ([facility]) Lisinopril 40 MG Oral Tablet lisinopril 40 mg tablet TAKE ONE TABLET BY MOUTH ONCE DAILY lisinopril 40 mg tablet TAKE ONE TABLET BY MOUTH ONCE DAILY completed lisinopril 40 MG Oral Tab let [place] ([facility]) Acetaminophen 325 MG / Hydrocodone Josue trate 5 MG Oral Tablet hydrocodone 5 mg- acetaminophen 325 mg tablet hydrocodone 5 mg-acetaminophen 325 mg tablet completed acetaminophen 325 MG / hydrocodone bitartrate 5 MG Oral Tablet [place] ([facility]) Simvastatin 80 MG Oral Tablet simvastati n 80 mg tablet TAKE ONE TABLET BY MOUTH ONCE DAILY simvastatin 80 mg tablet TAKE ONE TABLET BY MOUTH ONCE DAILY completed simvastatin 80 MG Oral Ta blet [place] ([facility]) Lisinopril 40 MG Oral Tablet lisinopril 40 mg tablet TAKE ONE TABLET BY MOUTH ONCE DAILY lisinopril 40 mg tablet TAKE ONE TABLET BY MOUTH ONCE DAILY completed lisinopril 40 MG Oral Tab let [place] ([facility]) Furosemide 40 MG Oral Tablet furosemide 40 mg tablet TAKE ONE TABLET BY MOUTH TWICE DAILY FOR THREE DAYS THEN ONE TABLET EVERY MORNING furosemide 40 mg tablet TAKE ONE TABLET BY MOUTH TWICE DAILY FOR THREE DAYS THEN ONE TABLET EVERY MORNING completed furosemide 40 MG Oral Tablet [facility] ([facility]) Clindamycin 300 MG Oral Capsule clindamy sarah beth HCl 300 mg capsule TAKE ONE CAPSULE BY MOUTH THREE TIMES DAILY FOR 7 DAYS clindamycin HCl 300 mg capsule TAKE ONE CAPSULE BY MOUTH THREE TIMES DAILY FOR 7 DAYS completed clindamycin 300 MG Oral Capsule [facility] ([facility]) Linagliptin 5 MG Oral Tablet [Tradjenta] Tradjenta 5 mg tablet TAKE ONE TABLET BY MOUTH ONCE DAILY Tradjenta 5 mg tablet TAKE ONE TABLET BY MOUTH ONCE DAILY completed linagliptin 5 MG Oral Tablet [Tradjenta] [place] ([facility]) Hydralazine Hydrochloride 25 MG Oral Tab let hydralazine 25 mg tablet TAKE THREE TABLETS BY MOUTH EVERY EIGHT HOURS hydralazine 25 mg tablet TAKE THREE TABL ETS BY MOUTH EVERY EIGHT HOURS completed hydralazine hydrochloride 25 MG Oral Tablet [facility] ([facility]) Omeprazole 20 MG Delayed Release Oral Ca psule omeprazole 20 mg capsule,delayed release TAKE ONE CAPSULE BY MOUTH ONE-HALF HOUR BEFORE DINNER omeprazole 20 mg capsule,delayed release TAKE ONE CAPSULE BY MOUTH ONE-HALF HOUR BEFORE DINNER completed omeprazole 20 MG Delayed Release Oral Capsule [facility] ([facility]) potassium chloride ER 10 mEq tablet,exte nded release(part/cryst) TAKE TWO TABLETS BY MOUTH ONCE DAILY [id number] completed Microencapsulated potassium chloride 10 MEQ Extended Release Oral Tablet [facility] ([facility]) Simvastatin 80 MG Oral Tablet simvastati n 80 mg tablet TAKE ONE TABLET BY MOUTH ONCE DAILY simvastatin 80 mg tablet TAKE ONE TABLET BY MOUTH ONCE DAILY completed simvastatin 80 MG Oral Ta blet [place] ([facility]) Potassium Chloride 10 MEQ Extended Relea se Oral Tablet potassium chloride ER 10 mEq tablet,extended release TAKE TWO TABLETS BY MOUTH ONCE DAILY potassium chloride ER 10 mEq tablet,extended release TAKE TWO TABLETS BY MOUTH ONCE DAILY completed potass ium chloride 10 MEQ Extended Release Oral Tablet [place] ([facility]) Clindamycin 150 MG Oral Capsule clindamycin HCl 150 mg capsule clindamycin HCl 150 mg capsule completed clindam ycin 150 MG Oral Capsule [place] ([facility]) Clindamycin 300 MG Oral Capsule clindamy sarah beth HCl 300 mg capsule TAKE ONE CAPSULE BY MOUTH THREE TIMES DAILY FOR 7 DAYS clindamycin HCl 300 mg capsule TAKE ONE CAPSULE BY MOUTH THREE TIMES DAILY FOR 7 DAYS completed clindamycin 300 MG Oral Capsule [place] ([facility]) Acetaminophen 325 MG / Hydrocodone Josue trate 5 MG Oral Tablet hydrocodone 5 mg- acetaminophen 325 mg tablet hydrocodone 5 mg-acetaminophen 325 mg tablet completed acetaminophen 325 MG / hydrocodone bitartrate 5 MG Oral Tablet [place] ([facility]) clopidogrel 75 MG Oral Tablet clopidogre l 75 mg tablet TAKE ONE TABLET BY MOUTH ONCE DAILY clopidogrel 75 mg tablet TAKE ONE TABLET BY MOUTH ONCE DAILY completed clopidogrel 75 MG Oral Ta blet [facility] ([facility]) OneTouch Ultra2 Meter USE DIRECTED TO CHECK BLOOD G LUCOSE FOUR TIMES DAILY [id number] completed OneTouch Ultra2 Meter [facility] ([facility]) potassium chloride ER 10 mEq tablet,exte nded release(part/cryst) TAKE TWO TABLETS BY MOUTH ONCE DAILY [id number] completed Microencapsulated potassium chloride 10 MEQ Extended Release Oral Tablet [place] ([facility]) potassium chloride ER 20 mEq tablet,extended release(part/cryst) 64296 0 completed Microencapsulat ed potassium chloride 20 MEQ Extended Release Oral Tablet [place] ([facility]) Lisinopril 40 MG Oral Tablet lisinopril 40 mg tablet TAKE ONE TABLET BY MOUTH ONCE DAILY lisinopril 40 mg tablet TAKE ONE TABLET BY MOUTH ONCE DAILY completed lisinopril 40 MG Oral Tab let [place] ([facility]) Hydrochlorothiazide 25 MG Oral Tablet hy drochlorothiazide 25 mg tablet TAKE ONE TABLET BY MOUTH ONCE DAILY hydrochlorothiazide 25 mg tablet TAKE ON E TABLET BY MOUTH ONCE DAILY completed hydrochlorothiazide 25 MG Oral Tablet [place] ([facility]) potassium chloride ER 10 mEq tablet,exte nded release(part/cryst) TAKE TWO TABLETS BY MOUTH ONCE DAILY [id number] completed Microencapsulated potassium chloride 10 MEQ Extended Release Oral Tablet [place] ([facility]) Hydralazine Hydrochloride 25 MG Oral Tablet hydralazin e 25 mg tablet hydralazine 25 mg tablet completed hydralazine hydrochloride 25 MG Oral Tablet [place] ([facility]) Potassium Chloride 10 MEQ Extended Relea se Oral Tablet potassium chloride ER 10 mEq tablet,extended release TAKE TWO TABLETS BY MOUTH ONCE DAILY potassium chloride ER 10 mEq tablet,extended release TAKE TWO TABLETS BY MOUTH ONCE DAILY completed potass ium chloride 10 MEQ Extended Release Oral Tablet [place] ([facility]) Clindamycin 300 MG Oral Capsule clindamy sarah beth HCl 300 mg capsule TAKE ONE CAPSULE BY MOUTH THREE TIMES DAILY FOR 7 DAYS clindamycin HCl 300 mg capsule TAKE ONE CAPSULE BY MOUTH THREE TIMES DAILY FOR 7 DAYS completed clindamycin 300 MG Oral Capsule [place] ([facility] Clindamycin 150 MG Oral Capsule clindamycin HCl 150 mg capsule clindamycin HCl 150 mg capsule completed clindam ycin 150 MG Oral Capsule [place] ([facility]) Potassium Chloride 10 MEQ Extended Relea se Oral Tablet potassium chloride ER 10 mEq tablet,extended release TAKE TWO TABLETS BY MOUTH ONCE DAILY potassium chloride ER 10 mEq tablet,extended release TAKE TWO TABLETS BY MOUTH ONCE DAILY completed potass ium chloride 10 MEQ Extended Release Oral Tablet [place] ([facility]) 24 HR carvedilol phosphate 10 MG Extende d Release Oral Capsule carvedilol phosphate ER 10 mg capsule,[id number] multiphase TAKE ONE CAPSULE BY MOUTH ONCE DAILY carvedilol phosphate ER 10 mg capsule,ex [id number] multiphase TAKE ONE CAPSULE BY MOUTH ONCE DAILY compl eted 24 HR carvedilol phosphate 10 MG Extended Release Oral Capsule [place] ([facility]) Furosemide 40 MG Oral Tablet furosemide 40 mg tablet TAKE ONE TABLET BY MOUTH TWICE DAILY FOR THREE DAYS THEN ONE TABLET EVERY MORNING furosemide 40 mg tablet TAKE ONE TABLET BY MOUTH TWICE DAILY FOR THREE DAYS THEN ONE TABLET EVERY MORNING completed furosemide 40 MG Oral Tablet [place] ([facility]) OneTouch Ultra Blue Test Strip [id number] completed OneTouch Ultra Blue Test Strip [place] ([facility]) Omeprazole 20 MG Delayed Release Oral Ca psule omeprazole 20 mg capsule,delayed release TAKE ONE CAPSULE BY MOUTH ONE-HALF HOUR BEFORE DINNER omeprazole 20 mg capsule,delayed release TAKE ONE CAPSULE BY MOUTH ONE-HALF HOUR BEFORE DINNER completed omeprazole 20 MG Delayed Release Oral Capsule [facility] ([facility]) OneTouch Ultra2 Meter Check BG qid. completed OneTouch Ultra2 Meter [place] ([facility]) Lisinopril 40 MG Oral Tablet lisinopril 40 mg tablet TAKE ONE TABLET BY MOUTH ONCE DAILY lisinopril 40 mg tablet TAKE ONE TABLET BY MOUTH ONCE DAILY completed lisinopril 40 MG Oral Tab let [place] ([facility]) potassium chloride ER 20 mEq tablet,extended release(part/cryst) [id number] 0 completed Microencapsulat ed potassium chloride 20 MEQ Extended Release Oral Tablet [place] ([facility]) Metformin hydrochloride 1000 MG Oral Tab let metformin 1,000 mg tablet TAKE ONE TABLET BY MOUTH TWICE DAILY metformin 1,000 mg tablet TAKE ONE TABLE T BY MOUTH TWICE DAILY completed me tformin hydrochloride 1000 MG Oral Tablet [place] ([facility]) Omeprazole 20 MG Delayed Release Oral Ca psule omeprazole 20 mg capsule,delayed release TAKE ONE CAPSULE BY MOUTH ONE-HALF HOUR BEFORE DINNER omeprazole 20 mg capsule,delayed release TAKE ONE CAPSULE BY MOUTH ONE-HALF HOUR BEFORE DINNER completed omeprazole 20 MG Delayed Release Oral Capsule [place] ([facility]) Metformin hydrochloride 1000 MG Oral Tab let metformin 1,000 mg tablet TAKE ONE TABLET BY MOUTH TWICE DAILY metformin 1,000 mg tablet TAKE ONE TABLE T BY MOUTH TWICE DAILY completed me tformin hydrochloride 1000 MG Oral Tablet [place] ([facility]) Metformin hydrochloride 1000 MG Oral Tab let metformin 1,000 mg tablet TAKE ONE TABLET BY MOUTH TWICE DAILY metformin 1,000 mg tablet TAKE ONE TABLE T BY MOUTH TWICE DAILY completed me tformin hydrochloride 1000 MG Oral Tablet [place] ([facility]) Pen Needle 31 gauge x 5/16" USE DIRECTED WITH INSULIN [id number] completed Pen Needle 31 gauge x 5/16" [facility]TH[facility] [place] ([facility]) Linagliptin 5 MG Oral Tablet [Tradjenta] Tradjenta 5 mg tablet TAKE ONE TABLET BY MOUTH ONCE DAILY Tradjenta 5 mg tablet TAKE ONE TABLET BY MOUTH ONCE DAILY completed linagliptin 5 MG Oral Tablet [Tradjenta] [place] ([facility]) Pen Needle 31 gauge x 3/16" [id number] com pleted Pen Needle 31 gauge x 3/16" [place] ([facility]) Clindamycin 150 MG Oral Capsule clindamycin HCl 150 mg capsule clindamycin HCl 150 mg capsule completed clindam ycin 150 MG Oral Capsule [place] ([facility]) potassium chloride ER 20 mEq tablet,extended release(part/cryst) 13129 0 completed Microencapsulat ed potassium chloride 20 MEQ Extended Release Oral Tablet [place] ([facility]) 24 HR carvedilol phosphate 10 MG Extende d Release Oral Capsule carvedilol phosphate ER 10 mg capsule,[id number] multiphase TAKE ONE CAPSULE BY MOUTH ONCE DAILY carvedilol phosphate ER 10 mg capsule,ex [id number] multiphase TAKE ONE CAPSULE BY MOUTH ONCE DAILY compl eted 24 HR carvedilol phosphate 10 MG Extended Release Oral Capsule [place] ([facility]) Clindamycin 300 MG Oral Capsule clindamy sarah beth HCl 300 mg capsule TAKE ONE CAPSULE BY MOUTH THREE TIMES DAILY FOR 7 DAYS clindamycin HCl 300 mg capsule TAKE ONE CAPSULE BY MOUTH THREE TIMES DAILY FOR 7 DAYS completed clindamycin 300 MG Oral Capsule [place] ([facility]) OneTouch Ultra2 Meter USE DIRECTED TO CHECK BLOOD G LUCOSE FOUR TIMES DAILY [id number] completed OneTouch Ultra2 Meter [place] ([facility]) Simvastatin 80 MG Oral Tablet simvastati n 80 mg tablet TAKE ONE TABLET BY MOUTH ONCE DAILY simvastatin 80 mg tablet TAKE ONE TABLET BY MOUTH ONCE DAILY completed simvastatin 80 MG Oral Ta blet [place] ([facility]) clopidogrel 75 MG Oral Tablet clopidogre l 75 mg tablet TAKE ONE TABLET BY MOUTH ONCE DAILY clopidogrel 75 mg tablet TAKE ONE TABLET BY MOUTH ONCE DAILY completed clopidogrel 75 MG Oral Ta blet [place] ([facility]) Amlodipine 10 MG Oral Tablet amlodipine 10 mg tablet TAKE ONE TABLET BY MOUTH DAILY amlodipine 10 mg tablet TAKE ONE TABLET BY MOUTH DAILY completed amlodipine 10 MG Oral Tablet [facility]TH [facility] ([facility]) OneTouch Ultra2 Meter USE DIRECTED TO CHECK BLOOD G LUCOSE FOUR TIMES DAILY [id number] completed OneTouch Ultra2 Meter [place] ([facility]) Acetaminophen 325 MG / Hydrocodone Josue trate 5 MG Oral Tablet hydrocodone 5 mg- acetaminophen 325 mg tablet hydrocodone 5 mg-acetaminophen 325 mg tablet completed acetaminophen 325 MG / hydrocodone bitartrate 5 MG Oral Tablet [place] ([facility]) Potassium Chloride 10 MEQ Extended Relea se Oral Tablet potassium chloride ER 10 mEq tablet,extended release TAKE TWO TABLETS BY MOUTH ONCE DAILY potassium chloride ER 10 mEq tablet,extended release TAKE TWO TABLETS BY MOUTH ONCE DAILY completed potass ium chloride 10 MEQ Extended Release Oral Tablet [place] ([facility]) Potassium Chloride 10 MEQ Extended Relea se Oral Tablet potassium chloride ER 10 mEq tablet,extended release TAKE TWO TABLETS BY MOUTH ONCE DAILY potassium chloride ER 10 mEq tablet,extended release TAKE TWO TABLETS BY MOUTH ONCE DAILY completed potass ium chloride 10 MEQ Extended Release Oral Tablet [place] ([facility]) potassium chloride ER 10 mEq tablet,exte nded release(part/cryst) TAKE TWO TABLETS BY MOUTH ONCE DAILY [id number] completed Microencapsulated potassium chloride 10 MEQ Extended Release Oral Tablet [place] ([facility]) Cephalexin 500 MG Oral Capsule cephalexi n 500 mg capsule TAKE ONE CAPSULE BY MOUTH EVERY 6 HOURS cephalexin 500 mg capsule TAKE ONE CAPSU LE BY MOUTH EVERY 6 HOURS completed cephalexin 500 M G Oral Capsule [place] ([facility]) Linagliptin 5 MG Oral Tablet [Tradjenta] Tradjenta 5 mg tablet TAKE ONE TABLET BY MOUTH ONCE DAILY Tradjenta 5 mg tablet TAKE ONE TABLET BY MOUTH ONCE DAILY completed linagliptin 5 MG Oral Tablet [Tradjenta] [place] ([facility]) Furosemide 40 MG Oral Tablet furosemide 40 mg tablet TAKE ONE TABLET BY MOUTH TWICE DAILY FOR THREE DAYS THEN ONE TABLET EVERY MORNING furosemide 40 mg tablet TAKE ONE TABLET BY MOUTH TWICE DAILY FOR THREE DAYS THEN ONE TABLET EVERY MORNING completed furosemide 40 MG Oral Tablet [place] ([facility]) OneTouch Ultra2 Meter Check BG qid. completed OneTouch Ultra2 Meter [place] ([facility]) Furosemide 40 MG Oral Tablet furosemide 40 mg tablet TAKE ONE TABLET BY MOUTH TWICE DAILY FOR THREE DAYS THEN ONE TABLET EVERY MORNING furosemide 40 mg tablet TAKE ONE TABLET BY MOUTH TWICE DAILY FOR THREE DAYS THEN ONE TABLET EVERY MORNING completed furosemide 40 MG Oral Tablet [place] ([facility]) OneTouch Ultra2 Meter Check BG qid. completed OneTouch Ultra2 Meter [place] ([facility]) Pen Needle 31 gauge x 3/16" [id number] com pleted Pen Needle 31 gauge x 3/16" [place] ([facility]) Clindamycin 300 MG Oral Capsule clindamy sarah beth HCl 300 mg capsule TAKE ONE CAPSULE BY MOUTH THREE TIMES DAILY FOR 7 DAYS clindamycin HCl 300 mg capsule TAKE ONE CAPSULE BY MOUTH THREE TIMES DAILY FOR 7 DAYS completed clindamycin 300 MG Oral Capsule [place] ([facility]) OneTouch Ultra2 Meter Check BG qid. completed OneTouch Ultra2 Meter [place] ([facility]) OneTouch Ultra Blue Test Strip [id number] completed OneTouch Ultra Blue Test Strip [place] ([facility]) OneTouch Ultra Blue Test Strip 037191 completed OneTouch Ultra Blue Test Strip [place] ([facility]) Simvastatin 80 MG Oral Tablet simvastati n 80 mg tablet TAKE ONE TABLET BY MOUTH ONCE DAILY simvastatin 80 mg tablet TAKE ONE TABLET BY MOUTH ONCE DAILY completed simvastatin 80 MG Oral Ta blet [place] ([facility]) Clindamycin 150 MG Oral Capsule clindamycin HCl 150 mg capsule clindamycin HCl 150 mg capsule completed clindam ycin 150 MG Oral Capsule [place] ([facility]) Clindamycin 300 MG Oral Capsule clindamy sarah beth HCl 300 mg capsule TAKE ONE CAPSULE BY MOUTH THREE TIMES DAILY FOR 7 DAYS clindamycin HCl 300 mg capsule TAKE ONE CAPSULE BY MOUTH THREE TIMES DAILY FOR 7 DAYS completed clindamycin 300 MG Oral Capsule [place] ([facility]) insulin detemir 100 UNT/ML Injectable So lution [Levemir] Levemir U-100 Insulin 100 unit/mL subcutaneous solution INJECT 10 UNITS SUBCUTANEOUSLY TWICE DAILY Levemir U-100 Insulin 100 unit/mL subcutaneous solution INJECT 10 UNITS SUBCUTANEOUSLY TWICE DAILY completed insulin detemir 100 UNT/ML Injectable Solution [Levemir] [place] ([facility]) OneTouch Ultra2 Meter Check BG qid. completed OneTouch Ultra2 Meter [place] ([facility]) Clindamycin 150 MG Oral Capsule clindamycin HCl 150 mg capsule clindamycin HCl 150 mg capsule completed clindam ycin 150 MG Oral Capsule [place] ([facility]) Cephalexin 500 MG Oral Capsule cephalexi n 500 mg capsule TAKE ONE CAPSULE BY MOUTH EVERY 6 HOURS cephalexin 500 mg capsule TAKE ONE CAPSU LE BY MOUTH EVERY 6 HOURS completed cephalexin 500 M G Oral Capsule [place] ([facility]) gabapentin 100 MG Oral Capsule gabapenti n 100 mg capsule TAKE ONE CAPSULE BY MOUTH TWICE DAILY gabapentin 100 mg capsule TAKE ONE CAPSU LE BY MOUTH TWICE DAILY completed gabapentin 100 M G Oral Capsule [place] ([facility]) Metformin hydrochloride 1000 MG Oral Tab let metformin 1,000 mg tablet TAKE ONE TABLET BY MOUTH TWICE DAILY metformin 1,000 mg tablet TAKE ONE TABLE T BY MOUTH TWICE DAILY completed me tformin hydrochloride 1000 MG Oral Tablet [place] ([facility]) clopidogrel 75 MG Oral Tablet clopidogre l 75 mg tablet TAKE ONE TABLET BY MOUTH ONCE DAILY clopidogrel 75 mg tablet TAKE ONE TABLET BY MOUTH ONCE DAILY completed clopidogrel 75 MG Oral Ta blet [place] ([facility]) Lisinopril 40 MG Oral Tablet lisinopril 40 mg tablet TAKE ONE TABLET BY MOUTH ONCE DAILY lisinopril 40 mg tablet TAKE ONE TABLET BY MOUTH ONCE DAILY completed lisinopril 40 MG Oral Tab let [place] ([facility]) Omeprazole 20 MG Delayed Release Oral Ca psule omeprazole 20 mg capsule,delayed release TAKE ONE CAPSULE BY MOUTH ONE-HALF HOUR BEFORE DINNER omeprazole 20 mg capsule,delayed release TAKE ONE CAPSULE BY MOUTH ONE-HALF HOUR BEFORE DINNER completed omeprazole 20 MG Delayed Release Oral Capsule [place] ([facility]) Omeprazole 20 MG Delayed Release Oral Ca psule omeprazole 20 mg capsule,delayed release TAKE ONE CAPSULE BY MOUTH ONE-HALF HOUR BEFORE DINNER omeprazole 20 mg capsule,delayed release TAKE ONE CAPSULE BY MOUTH ONE-HALF HOUR BEFORE DINNER completed omeprazole 20 MG Delayed Release Oral Capsule [place] ([facility]) Potassium Chloride 10 MEQ Extended Relea se Oral Tablet potassium chloride ER 10 mEq tablet,extended release TAKE TWO TABLETS BY MOUTH ONCE DAILY potassium chloride ER 10 mEq tablet,extended release TAKE TWO TABLETS BY MOUTH ONCE DAILY completed potass ium chloride 10 MEQ Extended Release Oral Tablet [place] ([facility]) gabapentin 100 MG Oral Capsule gabapenti n 100 mg capsule TAKE ONE CAPSULE BY MOUTH TWICE DAILY gabapentin 100 mg capsule TAKE ONE CAPSU LE BY MOUTH TWICE DAILY completed gabapentin 100 M G Oral Capsule [place] ([facility]) Omeprazole 20 MG Delayed Release Oral Ca psule omeprazole 20 mg capsule,delayed release TAKE ONE CAPSULE BY MOUTH ONE-HALF HOUR BEFORE DINNER omeprazole 20 mg capsule,delayed release TAKE ONE CAPSULE BY MOUTH ONE-HALF HOUR BEFORE DINNER completed omeprazole 20 MG Delayed Release Oral Capsule [place] ([facility]) potassium chloride ER 10 mEq tablet,exte nded release(part/cryst) TAKE TWO TABLETS BY MOUTH ONCE DAILY [id number] completed Microencapsulated potassium chloride 10 MEQ Extended Release Oral Tablet [place] ([facility]) Furosemide 40 MG Oral Tablet furosemide 40 mg tablet TAKE ONE TABLET BY MOUTH TWICE DAILY FOR THREE DAYS THEN ONE TABLET EVERY MORNING furosemide 40 mg tablet TAKE ONE TABLET BY MOUTH TWICE DAILY FOR THREE DAYS THEN ONE TABLET EVERY MORNING completed furosemide 40 MG Oral Tablet [place] ([facility]) Linagliptin 5 MG Oral Tablet [Tradjenta] Tradjenta 5 mg tablet TAKE ONE TABLET BY MOUTH ONCE DAILY Tradjenta 5 mg tablet TAKE ONE TABLET BY MOUTH ONCE DAILY completed linagliptin 5 MG Oral Tablet [Tradjenta] [place] ([facility]) Clindamycin 300 MG Oral Capsule clindamy sarah beth HCl 300 mg capsule TAKE ONE CAPSULE BY MOUTH THREE TIMES DAILY FOR 7 DAYS clindamycin HCl 300 mg capsule TAKE ONE CAPSULE BY MOUTH THREE TIMES DAILY FOR 7 DAYS completed clindamycin 300 MG Oral Capsule [place] ([facility]) Potassium Chloride 10 MEQ Extended Relea se Oral Tablet potassium chloride ER 10 mEq tablet,extended release TAKE TWO TABLETS BY MOUTH ONCE DAILY potassium chloride ER 10 mEq tablet,extended release TAKE TWO TABLETS BY MOUTH ONCE DAILY completed potass ium chloride 10 MEQ Extended Release Oral Tablet [place] ([facility]) Acetaminophen 325 MG / Hydrocodone Josue trate 5 MG Oral Tablet hydrocodone 5 mg- acetaminophen 325 mg tablet hydrocodone 5 mg-acetaminophen 325 mg tablet completed acetaminophen 325 MG / hydrocodone bitartrate 5 MG Oral Tablet [place] ([facility]) Acetaminophen 325 MG / Hydrocodone Josue trate 5 MG Oral Tablet hydrocodone 5 mg- acetaminophen 325 mg tablet hydrocodone 5 mg-acetaminophen 325 mg tablet completed acetaminophen 325 MG / hydrocodone bitartrate 5 MG Oral Tablet [place] ([facility]) potassium chloride ER 20 mEq tablet,extended release(part/cryst) 44748 0 completed Microencapsulat ed potassium chloride 20 MEQ Extended Release Oral Tablet [place] ([facility]) Pen Needle 31 gauge x 3/16" [id number] com pleted Pen Needle 31 gauge x 3/16" [place] ([facility]) Clindamycin 300 MG Oral Capsule clindamy sarah beth HCl 300 mg capsule TAKE ONE CAPSULE BY MOUTH THREE TIMES DAILY FOR 7 DAYS clindamycin HCl 300 mg capsule TAKE ONE CAPSULE BY MOUTH THREE TIMES DAILY FOR 7 DAYS completed clindamycin 300 MG Oral Capsule [place] ([facility]) Lisinopril 40 MG Oral Tablet lisinopril 40 mg tablet TAKE ONE TABLET BY MOUTH ONCE DAILY lisinopril 40 mg tablet TAKE ONE TABLET BY MOUTH ONCE DAILY completed lisinopril 40 MG Oral Tab let [place] ([facility]) Furosemide 40 MG Oral Tablet furosemide 40 mg tablet TAKE ONE TABLET BY MOUTH TWICE DAILY FOR THREE DAYS THEN ONE TABLET EVERY MORNING furosemide 40 mg tablet TAKE ONE TABLET BY MOUTH TWICE DAILY FOR THREE DAYS THEN ONE TABLET EVERY MORNING completed furosemide 40 MG Oral Tablet [place] ([facility]) Potassium Chloride 10 MEQ Extended Relea se Oral Tablet potassium chloride ER 10 mEq tablet,extended release TAKE TWO TABLETS BY MOUTH ONCE DAILY potassium chloride ER 10 mEq tablet,extended release TAKE TWO TABLETS BY MOUTH ONCE DAILY completed potass ium chloride 10 MEQ Extended Release Oral Tablet [place] ([facility]) Clindamycin 300 MG Oral Capsule clindamy sarah beth HCl 300 mg capsule TAKE ONE CAPSULE BY MOUTH THREE TIMES DAILY FOR 7 DAYS clindamycin HCl 300 mg capsule TAKE ONE CAPSULE BY MOUTH THREE TIMES DAILY FOR 7 DAYS completed clindamycin 300 MG Oral Capsule [place] ([facility]) Omeprazole 20 MG Delayed Release Oral Ca psule omeprazole 20 mg capsule,delayed release TAKE ONE CAPSULE BY MOUTH ONE-HALF HOUR BEFORE DINNER omeprazole 20 mg capsule,delayed release TAKE ONE CAPSULE BY MOUTH ONE-HALF HOUR BEFORE DINNER completed omeprazole 20 MG Delayed Release Oral Capsule [place] ([facility]) Pen Needle 31 gauge x 3/16" [id number] com pleted Pen Needle 31 gauge x 3/16" [place] ([facility]) clopidogrel 75 MG Oral Tablet clopidogre l 75 mg tablet TAKE ONE TABLET BY MOUTH ONCE DAILY clopidogrel 75 mg tablet TAKE ONE TABLET BY MOUTH ONCE DAILY completed clopidogrel 75 MG Oral Ta blet [place] ([facility]) OneTouch Ultra2 Meter Check BG qid. completed OneTouch Ultra2 Meter [place] ([facility]) insulin detemir 100 UNT/ML Injectable So lution [Levemir] Levemir U-100 Insulin 100 unit/mL subcutaneous solution INJECT 10 UNITS SUBCUTANEOUSLY TWICE DAILY Levemir U-100 Insulin 100 unit/mL subcutaneous solution INJECT 10 UNITS SUBCUTANEOUSLY TWICE DAILY completed insulin detemir 100 UNT/ML Injectable Solution [Levemir] [place] ([facility]) Omeprazole 20 MG Delayed Release Oral Ca psule omeprazole 20 mg capsule,delayed release TAKE ONE CAPSULE BY MOUTH ONE-HALF HOUR BEFORE DINNER omeprazole 20 mg capsule,delayed release TAKE ONE CAPSULE BY MOUTH ONE-HALF HOUR BEFORE DINNER completed omeprazole 20 MG Delayed Release Oral Capsule [place] ([facility]) clopidogrel 75 MG Oral Tablet clopidogre l 75 mg tablet TAKE ONE TABLET BY MOUTH ONCE DAILY clopidogrel 75 mg tablet TAKE ONE TABLET BY MOUTH ONCE DAILY completed clopidogrel 75 MG Oral Ta blet [place] ([facility]) insulin detemir 100 UNT/ML Injectable So lution [Levemir] Levemir U-100 Insulin 100 unit/mL subcutaneous solution INJECT 10 UNITS SUBCUTANEOUSLY TWICE DAILY Levemir U-100 Insulin 100 unit/mL subcutaneous solution INJECT 10 UNITS SUBCUTANEOUSLY TWICE DAILY completed insulin detemir 100 UNT/ML Injectable Solution [Levemir] [facility] ([facility]) Hydralazine Hydrochloride 25 MG Oral Tab let hydralazine 25 mg tablet TAKE THREE TABLETS BY MOUTH EVERY EIGHT HOURS hydralazine 25 mg tablet TAKE THREE TABL ETS BY MOUTH EVERY EIGHT HOURS completed hydralazine hydrochloride 25 MG Oral Tablet [facility] ([facility]) Hydrochlorothiazide 25 MG Oral Tablet hy drochlorothiazide 25 mg tablet TAKE ONE TABLET BY MOUTH ONCE DAILY hydrochlorothiazide 25 mg tablet TAKE ON E TABLET BY MOUTH ONCE DAILY completed hydrochlorothiazide 25 MG Oral Tablet [facility] ([facility]) Simvastatin 80 MG Oral Tablet simvastati n 80 mg tablet TAKE ONE TABLET BY MOUTH ONCE DAILY simvastatin 80 mg tablet TAKE ONE TABLET BY MOUTH ONCE DAILY completed simvastatin 80 MG Oral Ta blet [place] ([facility]) Linagliptin 5 MG Oral Tablet [Tradjenta] Tradjenta 5 mg tablet TAKE ONE TABLET BY MOUTH ONCE DAILY Tradjenta 5 mg tablet TAKE ONE TABLET BY MOUTH ONCE DAILY completed linagliptin 5 MG Oral Tablet [Tradjenta] [place] ([facility]) OneTouch Ultra2 Meter Check BG qid. completed OneTouch Ultra2 Meter [place] ([facility]) Acetaminophen 325 MG / Hydrocodone Josue trate 5 MG Oral Tablet hydrocodone 5 mg- acetaminophen 325 mg tablet hydrocodone 5 mg-acetaminophen 325 mg tablet completed acetaminophen 325 MG / hydrocodone bitartrate 5 MG Oral Tablet [place] ([facility]) OneTouch Ultra2 Meter Check BG qid. completed OneTouch Ultra2 Meter [place] ([facility]) Furosemide 40 MG Oral Tablet furosemide 40 mg tablet TAKE ONE TABLET BY MOUTH TWICE DAILY FOR THREE DAYS THEN ONE TABLET EVERY MORNING furosemide 40 mg tablet TAKE ONE TABLET BY MOUTH TWICE DAILY FOR THREE DAYS THEN ONE TABLET EVERY MORNING completed furosemide 40 MG Oral Tablet [facility] ([facility]) Hydralazine Hydrochloride 25 MG Oral Tab let hydralazine 25 mg tablet TAKE THREE TABLETS BY MOUTH EVERY EIGHT HOURS hydralazine 25 mg tablet TAKE THREE TABL ETS BY MOUTH EVERY EIGHT HOURS completed hydralazine hydrochloride 25 MG Oral Tablet [place] ([facility]) Clindamycin 150 MG Oral Capsule clindamycin HCl 150 mg capsule clindamycin HCl 150 mg capsule completed clindam ycin 150 MG Oral Capsule [facility] ([facility]) Furosemide 40 MG Oral Tablet furosemide 40 mg tablet TAKE ONE TABLET BY MOUTH TWICE DAILY FOR THREE DAYS THEN ONE TABLET EVERY MORNING furosemide 40 mg tablet TAKE ONE TABLET BY MOUTH TWICE DAILY FOR THREE DAYS THEN ONE TABLET EVERY MORNING completed furosemide 40 MG Oral Tablet [place] ([facility]) Levemir FlexTouch U-100 Insuln 80 units at bedtime completed Levemir [place] ([facility]) potassium chloride ER 20 mEq tablet,extended release(part/cryst) 86129 0 completed Microencapsulat ed potassium chloride 20 MEQ Extended Release Oral Tablet [place] ([facility]) Lisinopril 40 MG Oral Tablet lisinopril 40 mg tablet TAKE ONE TABLET BY MOUTH ONCE DAILY lisinopril 40 mg tablet TAKE ONE TABLET BY MOUTH ONCE DAILY completed lisinopril 40 MG Oral Tab let [place] ([facility]) Clindamycin 150 MG Oral Capsule clindamycin HCl 150 mg capsule clindamycin HCl 150 mg capsule completed clindam ycin 150 MG Oral Capsule [facility] ([facility]) gabapentin 100 MG Oral Capsule gabapenti n 100 mg capsule TAKE ONE CAPSULE BY MOUTH TWICE DAILY gabapentin 100 mg capsule TAKE ONE CAPSU LE BY MOUTH TWICE DAILY completed gabapentin 100 M G Oral Capsule [place] ([facility]) 24 HR carvedilol phosphate 10 MG Extende d Release Oral Capsule carvedilol phosphate ER 10 mg capsule,ext.[id number] multiphase TAKE ONE CAPSULE BY MOUTH ONCE DAILY carvedilol phosphate ER 10 mg capsule,ex t.[id number] multiphase TAKE ONE CAPSULE BY MOUTH ONCE DAILY compl eted 24 HR carvedilol phosphate 10 MG Extended Release Oral Capsule [facility] ([facility]) Clindamycin 300 MG Oral Capsule clindamy sarah beth HCl 300 mg capsule TAKE ONE CAPSULE BY MOUTH THREE TIMES DAILY FOR 7 DAYS clindamycin HCl 300 mg capsule TAKE ONE CAPSULE BY MOUTH THREE TIMES DAILY FOR 7 DAYS completed clindamycin 300 MG Oral Capsule [facility] ([facility]) Pen Needle 31 gauge x 3/16" [id number] com pleted Pen Needle 31 gauge x 3/16" [facility] ([facility]) gabapentin 100 MG Oral Capsule gabapenti n 100 mg capsule TAKE ONE CAPSULE BY MOUTH TWICE DAILY gabapentin 100 mg capsule TAKE ONE CAPSU LE BY MOUTH TWICE DAILY completed gabapentin 100 M G Oral Capsule [facility] ([facility]) clopidogrel 75 MG Oral Tablet clopidogre l 75 mg tablet TAKE ONE TABLET BY MOUTH ONCE DAILY clopidogrel 75 mg tablet TAKE ONE TABLET BY MOUTH ONCE DAILY completed clopidogrel 75 MG Oral Ta blet [facility] ([facility]) Pen Needle 31 gauge x 5/16" USE DIRECTED WITH INSULIN [id number] completed Pen Needle 31 gauge x 5/16" ATHE NA ([facility]) Acetaminophen 325 MG / Hydrocodone Josue trate 5 MG Oral Tablet hydrocodone 5 mg- acetaminophen 325 mg tablet hydrocodone 5 mg-acetaminophen 325 mg tablet completed acetaminophen 325 MG / hydrocodone bitartrate 5 MG Oral Tablet [facility] ([facility]) gabapentin 100 MG Oral Capsule gabapenti n 100 mg capsule TAKE ONE CAPSULE BY MOUTH TWICE DAILY gabapentin 100 mg capsule TAKE ONE CAPSU LE BY MOUTH TWICE DAILY completed gabapentin 100 M G Oral Capsule [facility] ([facility]) Simvastatin 80 MG Oral Tablet simvastati n 80 mg tablet TAKE ONE TABLET BY MOUTH ONCE DAILY simvastatin 80 mg tablet TAKE ONE TABLET BY MOUTH ONCE DAILY completed simvastatin 80 MG Oral Ta blet [facility] ([facility]) Linagliptin 5 MG Oral Tablet [Tradjenta] Tradjenta 5 mg tablet TAKE ONE TABLET BY MOUTH ONCE DAILY Tradjenta 5 mg tablet TAKE ONE TABLET BY MOUTH ONCE DAILY completed linagliptin 5 MG Oral Tablet [Tradjenta] [facility] ([facility]) Hydrochlorothiazide 25 MG Oral Tablet hy drochlorothiazide 25 mg tablet TAKE ONE TABLET BY MOUTH ONCE DAILY hydrochlorothiazide 25 mg tablet TAKE ON E TABLET BY MOUTH ONCE DAILY completed hydrochlorothiazide 25 MG Oral Tablet [facility] ([facility]) Simvastatin 80 MG Oral Tablet simvastati n 80 mg tablet TAKE ONE TABLET BY MOUTH ONCE DAILY simvastatin 80 mg tablet TAKE ONE TABLET BY MOUTH ONCE DAILY completed simvastatin 80 MG Oral Ta blet [facility] ([facility]) Furosemide 40 MG Oral Tablet furosemide 40 mg tablet TAKE ONE TABLET BY MOUTH TWICE DAILY FOR THREE DAYS THEN ONE TABLET EVERY MORNING furosemide 40 mg tablet TAKE ONE TABLET BY MOUTH TWICE DAILY FOR THREE DAYS THEN ONE TABLET EVERY MORNING completed furosemide 40 MG Oral Tablet [facility] ([facility]) Omeprazole 20 MG Delayed Release Oral Ca psule omeprazole 20 mg capsule,delayed release TAKE ONE CAPSULE BY MOUTH ONE-HALF HOUR BEFORE DINNER omeprazole 20 mg capsule,delayed release TAKE ONE CAPSULE BY MOUTH ONE-HALF HOUR BEFORE DINNER completed omeprazole 20 MG Delayed Release Oral Capsule [facility] ([facility]) Hydralazine Hydrochloride 25 MG Oral Tab let hydralazine 25 mg tablet TAKE THREE TABLETS BY MOUTH EVERY EIGHT HOURS hydralazine 25 mg tablet TAKE THREE TABL ETS BY MOUTH EVERY EIGHT HOURS completed hydralazine hydrochloride 25 MG Oral Tablet [facility] ([facility]) Linagliptin 5 MG Oral Tablet [Tradjenta] Tradjenta 5 mg tablet TAKE ONE TABLET BY MOUTH ONCE DAILY Tradjenta 5 mg tablet TAKE ONE TABLET BY MOUTH ONCE DAILY completed linagliptin 5 MG Oral Tablet [Tradjenta] [place] ([facility]) OneTouch Ultra2 Meter USE DIRECTED TO CHECK BLOOD G LUCOSE FOUR TIMES DAILY 835227 completed OneTouch Ultra2 Meter [place] ([facility]) Linagliptin 5 MG Oral Tablet [Tradjenta] Tradjenta 5 mg tablet TAKE ONE TABLET BY MOUTH ONCE DAILY Tradjenta 5 mg tablet TAKE ONE TABLET BY MOUTH ONCE DAILY completed linagliptin 5 MG Oral Tablet [Tradjenta] [place] ([facility]) Omeprazole 20 MG Delayed Release Oral Ca psule omeprazole 20 mg capsule,delayed release TAKE ONE CAPSULE BY MOUTH ONE-HALF HOUR BEFORE DINNER omeprazole 20 mg capsule,delayed release TAKE ONE CAPSULE BY MOUTH ONE-HALF HOUR BEFORE DINNER completed omeprazole 20 MG Delayed Release Oral Capsule [facility]) OneTouch Ultra2 Meter USE DIRECTED TO CHECK BLOOD G LUCOSE FOUR TIMES DAILY 856219 completed OneTouch Ultra2 Meter [facility] ([facility]) OneTouch Ultra2 Meter USE DIRECTED TO CHECK BLOOD G LUCOSE FOUR TIMES DAILY 935159 completed OneTouch Ultra2 Meter [facility]) gabapentin 100 MG Oral Capsule gabapenti n 100 mg capsule TAKE ONE CAPSULE BY MOUTH TWICE DAILY gabapentin 100 mg capsule TAKE ONE CAPSU LE BY MOUTH TWICE DAILY completed gabapentin 100 M G Oral Capsule [facility]) clopidogrel 75 MG Oral Tablet clopidogre l 75 mg tablet TAKE ONE TABLET BY MOUTH ONCE DAILY clopidogrel 75 mg tablet TAKE ONE TABLET BY MOUTH ONCE DAILY completed clopidogrel 75 MG Oral Ta blet [facility]) clopidogrel 75 MG Oral Tablet clopidogre l 75 mg tablet TAKE ONE TABLET BY MOUTH ONCE DAILY clopidogrel 75 mg tablet TAKE ONE TABLET BY MOUTH ONCE DAILY completed clopidogrel 75 MG Oral Ta blet [facility] ([facility]) gabapentin 100 MG Oral Capsule gabapenti n 100 mg capsule TAKE ONE CAPSULE BY MOUTH TWICE DAILY gabapentin 100 mg capsule TAKE ONE CAPSU LE BY MOUTH TWICE DAILY completed gabapentin 100 M G Oral Capsule [facility] ([facility]) Potassium Chloride 10 MEQ Extended Relea se Oral Tablet potassium chloride ER 10 mEq tablet,extended release TAKE TWO TABLETS BY MOUTH ONCE DAILY potassium chloride ER 10 mEq tablet,extended release TAKE TWO TABLETS BY MOUTH ONCE DAILY completed potass ium chloride 10 MEQ Extended Release Oral Tablet [facility]) Metformin hydrochloride 1000 MG Oral Tab let metformin 1,000 mg tablet TAKE ONE TABLET BY MOUTH TWICE DAILY metformin 1,000 mg tablet TAKE ONE TABLE T BY MOUTH TWICE DAILY completed me tformin hydrochloride 1000 MG Oral Tablet [place] ([facility]) Clindamycin 150 MG Oral Capsule clindamycin HCl 150 mg capsule clindamycin HCl 150 mg capsule completed clindam ycin 150 MG Oral Capsule [place] ([facility]) Hydrochlorothiazide 25 MG Oral Tablet hy drochlorothiazide 25 mg tablet Take 1 tablet every day by oral route. hydrochlorothiazide 25 mg tablet Take 1 tablet every day by oral route. 1 completed hydrochlorothiazide 25 MG Oral Tablet [place] ([facility]) potassium chloride ER 10 mEq tablet,exte nded release(part/cryst) TAKE TWO TABLETS BY MOUTH ONCE DAILY [id number] completed Microencapsulated potassium chloride 10 MEQ Extended Release Oral Tablet [facility] ([facility]) clopidogrel 75 MG Oral Tablet clopidogre l 75 mg tablet TAKE ONE TABLET BY MOUTH ONCE DAILY clopidogrel 75 mg tablet TAKE ONE TABLET BY MOUTH ONCE DAILY completed clopidogrel 75 MG Oral Ta blet [place] ([facility]) Simvastatin 80 MG Oral Tablet simvastati n 80 mg tablet TAKE ONE TABLET BY MOUTH ONCE DAILY simvastatin 80 mg tablet TAKE ONE TABLET BY MOUTH ONCE DAILY completed simvastatin 80 MG Oral Ta blet [place] ([facility]) Acetaminophen 325 MG / Hydrocodone Josue trate 5 MG Oral Tablet hydrocodone 5 mg- acetaminophen 325 mg tablet hydrocodone 5 mg-acetaminophen 325 mg tablet completed acetaminophen 325 MG / hydrocodone bitartrate 5 MG Oral Tablet [place] ([facility]) insulin detemir 100 UNT/ML Injectable So lution [Levemir] Levemir U-100 Insulin 100 unit/mL subcutaneous solution INJECT 10 UNITS SUBCUTANEOUSLY TWICE DAILY Levemir U-100 Insulin 100 unit/mL subcutaneous solution INJECT 10 UNITS SUBCUTANEOUSLY TWICE DAILY completed insulin detemir 100 UNT/ML Injectable Solution [Levemir] [place] ([facility]) Hydrochlorothiazide 25 MG Oral Tablet hy drochlorothiazide 25 mg tablet Take 1 tablet every day by oral route. hydrochlorothiazide 25 mg tablet Take 1 tablet every day by oral route. 1 completed hydrochlorothiazide 25 MG Oral Tablet [place] ([facility]) Linagliptin 5 MG Oral Tablet [Tradjenta] Tradjenta 5 mg tablet TAKE ONE TABLET BY MOUTH ONCE DAILY Tradjenta 5 mg tablet TAKE ONE TABLET BY MOUTH ONCE DAILY completed linagliptin 5 MG Oral Tablet [Tradjenta] [place] ([facility]) potassium chloride ER 20 mEq tablet,extended release(part/cryst) 41069 0 completed Microencapsulat ed potassium chloride 20 MEQ Extended Release Oral Tablet [place] ([facility]) Clindamycin 300 MG Oral Capsule clindamy sarah beth HCl 300 mg capsule TAKE ONE CAPSULE BY MOUTH THREE TIMES DAILY FOR 7 DAYS clindamycin HCl 300 mg capsule TAKE ONE CAPSULE BY MOUTH THREE TIMES DAILY FOR 7 DAYS completed clindamycin 300 MG Oral Capsule [place] ([facility]) OneTouch Ultra Blue Test Strip 792454 completed OneTouch Ultra Blue Test Strip [place] ([facility]) potassium chloride ER 10 mEq tablet,exte nded release(part/cryst) TAKE TWO TABLETS BY MOUTH ONCE DAILY 912719 completed Microencapsulated potassium chloride 10 MEQ Extended Release Oral Tablet [facility] ([facility]) gabapentin 100 MG Oral Capsule gabapenti n 100 mg capsule TAKE ONE CAPSULE BY MOUTH TWICE DAILY gabapentin 100 mg capsule TAKE ONE CAPSU LE BY MOUTH TWICE DAILY completed gabapentin 100 M G Oral Capsule [facility] ([facility]) 24 HR carvedilol phosphate 10 MG Extende d Release Oral Capsule carvedilol phosphate ER 10 mg capsule,ext.[id number] multiphase TAKE ONE CAPSULE BY MOUTH ONCE DAILY carvedilol phosphate ER 10 mg capsule,ex t.[id number] multiphase TAKE ONE CAPSULE BY MOUTH ONCE DAILY compl eted 24 HR carvedilol phosphate 10 MG Extended Release Oral Capsule [place] ([facility]) Potassium Chloride 10 MEQ Extended Relea se Oral Tablet potassium chloride ER 10 mEq tablet,extended release TAKE TWO TABLETS BY MOUTH ONCE DAILY potassium chloride ER 10 mEq tablet,extended release TAKE TWO TABLETS BY MOUTH ONCE DAILY completed potass ium chloride 10 MEQ Extended Release Oral Tablet [place] ([facility]) potassium chloride ER 10 mEq tablet,exte nded release(part/cryst) TAKE TWO TABLETS BY MOUTH ONCE DAILY [id number] completed Microencapsulated potassium chloride 10 MEQ Extended Release Oral Tablet [place] ([facility]) potassium chloride ER 20 mEq tablet,extended release(part/cryst) 76411 0 completed Microencapsulat ed potassium chloride 20 MEQ Extended Release Oral Tablet [place] ([facility]) OneTouch Ultra2 Meter USE DIRECTED TO CHECK BLOOD G LUCOSE FOUR TIMES DAILY 154447 completed OneTouch Ultra2 Meter [place] ([facility]) Metformin hydrochloride 1000 MG Oral Tab let metformin 1,000 mg tablet TAKE ONE TABLET BY MOUTH TWICE DAILY metformin 1,000 mg tablet TAKE ONE TABLE T BY MOUTH TWICE DAILY completed me tformin hydrochloride 1000 MG Oral Tablet [place] ([facility]) Omeprazole 20 MG Delayed Release Oral Ca psule omeprazole 20 mg capsule,delayed release TAKE ONE CAPSULE BY MOUTH ONE-HALF HOUR BEFORE DINNER omeprazole 20 mg capsule,delayed release TAKE ONE CAPSULE BY MOUTH ONE-HALF HOUR BEFORE DINNER completed omeprazole 20 MG Delayed Release Oral Capsule [place] ([facility]) Clindamycin 300 MG Oral Capsule clindamy sarah beth HCl 300 mg capsule TAKE ONE CAPSULE BY MOUTH THREE TIMES DAILY FOR 7 DAYS clindamycin HCl 300 mg capsule TAKE ONE CAPSULE BY MOUTH THREE TIMES DAILY FOR 7 DAYS completed clindamycin 300 MG Oral Capsule [place] ([facility]) Acetaminophen 325 MG / Hydrocodone Josue trate 5 MG Oral Tablet hydrocodone 5 mg- acetaminophen 325 mg tablet hydrocodone 5 mg-acetaminophen 325 mg tablet completed acetaminophen 325 MG / hydrocodone bitartrate 5 MG Oral Tablet [place] ([facility]) Acetaminophen 325 MG / Hydrocodone Josue trate 5 MG Oral Tablet hydrocodone 5 mg- acetaminophen 325 mg tablet hydrocodone 5 mg-acetaminophen 325 mg tablet completed acetaminophen 325 MG / hydrocodone bitartrate 5 MG Oral Tablet [place] ([facility]) gabapentin 100 MG Oral Capsule gabapenti n 100 mg capsule TAKE ONE CAPSULE BY MOUTH TWICE DAILY gabapentin 100 mg capsule TAKE ONE CAPSU LE BY MOUTH TWICE DAILY completed gabapentin 100 M G Oral Capsule [place] ([facility]) Acetaminophen 325 MG / Hydrocodone Josue trate 5 MG Oral Tablet hydrocodone 5 mg- acetaminophen 325 mg tablet hydrocodone 5 mg-acetaminophen 325 mg tablet completed acetaminophen 325 MG / hydrocodone bitartrate 5 MG Oral Tablet [place] ([facility]) Clindamycin 150 MG Oral Capsule clindamycin HCl 150 mg capsule clindamycin HCl 150 mg capsule completed clindam ycin 150 MG Oral Capsule [place] ([facility]) Simvastatin 80 MG Oral Tablet simvastati n 80 mg tablet TAKE ONE TABLET BY MOUTH ONCE DAILY simvastatin 80 mg tablet TAKE ONE TABLET BY MOUTH ONCE DAILY completed simvastatin 80 MG Oral Ta blet [place] ([facility]) Potassium Chloride 10 MEQ Extended Relea se Oral Tablet potassium chloride ER 10 mEq tablet,extended release TAKE TWO TABLETS BY MOUTH ONCE DAILY potassium chloride ER 10 mEq tablet,extended release TAKE TWO TABLETS BY MOUTH ONCE DAILY completed potass ium chloride 10 MEQ Extended Release Oral Tablet [place] ([facility]) 24 HR carvedilol phosphate 10 MG Extende d Release Oral Capsule carvedilol phosphate ER 10 mg capsule,ext.[id number] multiphase TAKE ONE CAPSULE BY MOUTH ONCE DAILY carvedilol phosphate ER 10 mg capsule,ex t.[id number] multiphase TAKE ONE CAPSULE BY MOUTH ONCE DAILY compl eted 24 HR carvedilol phosphate 10 MG Extended Release Oral Capsule [place] ([facility]) Pen Needle 31 gauge x 5/16" USE DIRECTED WITH INSULIN [id number] completed Pen Needle 31 gauge x 5/16" [place] ([facility]) 24 HR carvedilol phosphate 10 MG Extende d Release Oral Capsule carvedilol phosphate ER 10 mg capsule,ext.[id number] multiphase TAKE ONE CAPSULE BY MOUTH ONCE DAILY carvedilol phosphate ER 10 mg capsule,ex t.[id number] multiphase TAKE ONE CAPSULE BY MOUTH ONCE DAILY compl eted 24 HR carvedilol phosphate 10 MG Extended Release Oral Capsule [place] ([facility]) gabapentin 100 MG Oral Capsule gabapenti n 100 mg capsule TAKE ONE CAPSULE BY MOUTH TWICE DAILY gabapentin 100 mg capsule TAKE ONE CAPSU LE BY MOUTH TWICE DAILY completed gabapentin 100 M G Oral Capsule [place] ([facility]) Lisinopril 40 MG Oral Tablet lisinopril 40 mg tablet TAKE ONE TABLET BY MOUTH ONCE DAILY lisinopril 40 mg tablet TAKE ONE TABLET BY MOUTH ONCE DAILY completed lisinopril 40 MG Oral Tab let [place] ([facility]) clopidogrel 75 MG Oral Tablet clopidogre l 75 mg tablet TAKE ONE TABLET BY MOUTH ONCE DAILY clopidogrel 75 mg tablet TAKE ONE TABLET BY MOUTH ONCE DAILY completed clopidogrel 75 MG Oral Ta blet [place] ([facility]) Furosemide 40 MG Oral Tablet furosemide 40 mg tablet TAKE ONE TABLET BY MOUTH TWICE DAILY FOR THREE DAYS THEN ONE TABLET EVERY MORNING furosemide 40 mg tablet TAKE ONE TABLET BY MOUTH TWICE DAILY FOR THREE DAYS THEN ONE TABLET EVERY MORNING completed furosemide 40 MG Oral Tablet [place] ([facility]) 24 HR carvedilol phosphate 10 MG Extende d Release Oral Capsule carvedilol phosphate ER 10 mg capsule,ext.[id number] multiphase TAKE ONE CAPSULE BY MOUTH ONCE DAILY carvedilol phosphate ER 10 mg capsule,ex t.[id number] multiphase TAKE ONE CAPSULE BY MOUTH ONCE DAILY compl eted 24 HR carvedilol phosphate 10 MG Extended Release Oral Capsule [place] ([facility]) Linagliptin 5 MG Oral Tablet [Tradjenta] Tradjenta 5 mg tablet TAKE ONE TABLET BY MOUTH ONCE DAILY Tradjenta 5 mg tablet TAKE ONE TABLET BY MOUTH ONCE DAILY completed linagliptin 5 MG Oral Tablet [Tradjenta] [place] ([facility]) Acetaminophen 325 MG / Hydrocodone Josue trate 5 MG Oral Tablet hydrocodone 5 mg- acetaminophen 325 mg tablet hydrocodone 5 mg-acetaminophen 325 mg tablet completed acetaminophen 325 MG / hydrocodone bitartrate 5 MG Oral Tablet [place] ([facility]) Pen Needle 31 gauge x 5/16" USE DIRECTED WITH INSULIN 466910 completed Pen Needle 31 gauge x 5/16" [facility] [place] ([facility]) Lisinopril 40 MG Oral Tablet lisinopril 40 mg tablet TAKE ONE TABLET BY MOUTH ONCE DAILY lisinopril 40 mg tablet TAKE ONE TABLET BY MOUTH ONCE DAILY completed lisinopril 40 MG Oral Tab let [place] ([facility]) 24 HR carvedilol phosphate 10 MG Extende d Release Oral Capsule carvedilol phosphate ER 10 mg capsule,ext.[id number] multiphase TAKE ONE CAPSULE BY MOUTH ONCE DAILY carvedilol phosphate ER 10 mg capsule,ex t.[id number] multiphase TAKE ONE CAPSULE BY MOUTH ONCE DAILY compl eted 24 HR carvedilol phosphate 10 MG Extended Release Oral Capsule [place] ([facility]) Insurance Providers Payer name Policy type / Coverage type Policy ID Covered alliance party ID Covered alliance party's relationship to elblanc Policy [place] Plan Information [employer]OMCO [id number] SP [id number] POMCO S [id number] S [id number] [employer]OM[employer] P [id number] S [id number] POMCO P [id number] S [id number] P [id number] S [id number] [employer]OMCO P [id number] S [id number] MEDICARE [id number] SP [id number] A MEDICARE [id number] SP [id number] Medicare P [id number] S [id number] A MEDICARE [id number] SP [id number] [id number] Medicare P [id number] S [id number] A UMR [facility] [id number] SP [id number] Medicare P [id number] S [id number] A UMR S [id number] S [id number] Medicare P [id number] S [id number] A UMR S [id number] S [id number] UMR S [id number] S [id number] UMR P [id number] S [id number] Medicare P [id number] S [id number] [id number] UMR P [id number] S [id number] UMR S [id number] S [id number] UMR S [id number] S [id number] UMR S [id number] S [id number] Medicare Medicare Primary [id number] Self [id number] Medicare Dme Medigap Part B [id number] Self [id number] Medicare Medicare Primary [id number] Self [id number] Self Pay P UNAVAILABLE S UNAVAILA BLE [facility] Ppo Medigap Part B [id number] Self [id number] Medicare (Part B) Medicare Primary [id number] Self [id number] [facility] Ppo Medigap Part B [id number] Self [id number] MEDICARE [id number] SP [id number] [id number] Medicare Dme Medigap Part B [id number] Self [id number] r Commercial [id number] Self [id number] Medicare Medicare Primary [id number] Self [id number] [facility] Ppo Medigap Part B [id number] Self [id number] Medicare (Part B) Medicare Primary [id number] Self [id number] [facility] Ppo Medigap Part B [id number]. [id number] Self [id number] Medicare (Part B) Medicare Primary [id number] Self [id number] Medicare Medigap Part B [id number] 8535.0 Self [id number] Medicare Dme Medicare Primary [id number]. [id number] Self [id number] [place] Medigap Part B [id number] 5.0 Self [id number] Medicare Dme Medigap Part B [id number] Self [id number] Medicare Medicare Primary [id number]. [id number] Self [id number] Medicare Dme Medigap Part B [id number] Self [id number] Medicare Medicare Primary [id number]. [id number] Self [id number] MEDICARE C [id number] S [id number] A [employer] PPO O [id number] S [id number] Medicare Medicare Primary [id number]. [id number] Self [id number] MEDICARE [id number] SP [id number] A TODAYS OPTIONS [id number] SP [id number] [employer] [id number] SP [id number] TODAYS OPTIONS [id number] SP [id number] [employer] PHCS Ppo Medigap Part [id number] .[id number] Self Medicare (Part B) Medicare Primary [id number] Self TODAYS OPTIONS [id number] SP [id number] TODAYS OPTIONS/[place] O [id number] S [id number] TODAYS OPTIONS [id number] SP [id number] TODAYS OPTIONS [id number] SP [id number] Today's Option P [id number] S [id number] Today's Option P [id number] S [id number] [employer] S [id number] S [id number] TODAYS OPTIONS [id number] SP [id number] [employer] Commercial [id number] Self Medicare (Part B) Medicare Primary [id number] Self [id number] [facility] [id number] SP [id number] UMR [facility] CARE [id number] SP [id number] UMR/[employer] RISK MANAGEMENT [id number] SP [id number] UMR O [id number] S [id number] MEDICARE C [id number] S [id number] UMR [facility] [id number] SP [id number] Medicare P [id number] S [id number] A UMR P [id number] S [id number] MEDICARE [id number] SP [id number] MEDICARE [id number] SP [id number] A Umr Commercial [id number] Self [id number] [place] Primary [id number] Self [id number] [employer] [id number] SP [id number] ANSI-Medicare Part B [id number] ANSI-Commercial [id number] ANSI-Medicare Part B [id number] MEDICARE [id number] SP [id number] A Medicare Dme Medigap Part B [id number] Self [id number] Medicare Medicare Primary 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 Problem 01/12/2021 12:00:00 AM EDT AT [facility] ([facility]) [id number] 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 Problem 01/12/2021 12:00:00 AM EDT AT [facility] ([facility]) [id number] Diabetic foot ulcer Diabetic Foot Ulcer Problem 0 09/20/2020 12:00:00 AM EDT [place] ([facility]) [id number] Diabetic foot ulcer Diabetic Foot Ulcer Problem 0 09/20/2020 12:00:00 AM EDT [place] ([facility]) [id number] Diabetic foot ulcer Diabetic Foot Ulcer Problem 0 09/20/2020 12:00:00 AM EDT [place] ([facility]) [id number] Diabetic foot ulcer Diabetic Foot Ulcer Problem 0 09/20/2020 12:00:00 AM EDT [place] ([facility]) [id number] Diabetic foot ulcer Diabetic Foot Ulcer Problem 0 09/20/2020 12:00:00 AM EDT [place] ([facility]) [id number] Diabetic foot ulcer Diabetic Foot Ulcer Problem 0 09/20/2020 12:00:00 AM EDT [place] ([facility]) [id number] Diabetic foot ulcer Diabetic Foot Ulcer Problem 0 09/20/2020 12:00:00 AM EDT [place] ([facility]) [id number] Diabetic foot ulcer Diabetic Foot Ulcer Problem 0 09/20/2020 12:00:00 AM EDT [place] ([facility]) [id number] Type 2 diabetes mellitus without complic ation Type 2 Diabetes Mellitus without Complication Problem 05/24/2020 12:00:00 AM EST [place] ([facility]) [id number] Type 2 diabetes mellitus without complic ation Type 2 Diabetes Mellitus without Complication Problem 05/24/2020 12:00:00 AM EST [place] ([facility]) [id number] Type 2 diabetes mellitus without complic ation Type 2 Diabetes Mellitus without Complication Problem 05/24/2020 12:00:00 AM EST [place] ([facility]) [id number] Type 2 diabetes mellitus without complic ation Type 2 Diabetes Mellitus without Complication Problem 05/24/2020 12:00:00 AM EST [place] ([facility]) [id number] Type 2 diabetes mellitus without complic ation Type 2 Diabetes Mellitus without Complication Problem 05/24/2020 12:00:00 AM EST [place] ([facility]) [id number] Type 2 diabetes mellitus without complic ation Type 2 Diabetes Mellitus without Complication Problem 05/24/2020 12:00:00 AM EST [place] ([facility]) [id number] Type 2 diabetes mellitus without complic ation Type 2 Diabetes Mellitus without Complication Problem 05/24/2020 12:00:00 AM EST [place] ([facility]) [id number] Type 2 diabetes mellitus without complic ation Type 2 Diabetes Mellitus without Complication Problem 05/24/2020 12:00:00 AM EST [place] ([facility]) [id number] Type 2 diabetes mellitus without complic ation Type 2 Diabetes Mellitus without Complication Problem 05/24/2020 12:00:00 AM EST [place] ([facility]) [id number] Type 2 diabetes mellitus without complic ation Type 2 Diabetes Mellitus without Complication Problem 05/24/2020 12:00:00 AM EST [place] ([facility]) [id number] Type 2 diabetes mellitus without complic ation Type 2 Diabetes Mellitus without Complication Problem 05/24/2020 12:00:00 AM EST [place] ([facility]) [id number] Type 2 diabetes mellitus without complic ation Type 2 Diabetes Mellitus without Complication Problem 05/24/2020 12:00:00 AM EST [place] ([facility]) L97.812 [id number] Non-pressure chronic ulcer of other part of right lower leg with fat layer exposed Problem 03/02/2020 12:00:00 AM EST eCW1 ([facility]) [id number] Diabetic foot ulcer Diabetic Foot Ulcer Problem 1 04/21/2019 12:00:00 AM EST [place] ([facility]) [id number] Diabetic foot ulcer Diabetic Foot Ulcer Problem 1 04/21/2019 12:00:00 AM EST [place] ([facility]) [id number] Diabetic foot ulcer Diabetic Foot Ulcer Problem 1 04/21/2019 12:00:00 AM EST [place] ([facility]) [id number] Diabetic foot ulcer Diabetic Foot Ulcer Problem 1 04/21/2019 12:00:00 AM EST [place] ([facility]) [id number] Diabetic foot ulcer Diabetic Foot Ulcer Problem 1 04/21/2019 12:00:00 AM EST [place] ([facility]) [id number] Diabetic foot ulcer Diabetic Foot Ulcer Problem 1 04/21/2019 12:00:00 AM EST [place] ([facility]) [id number] Diabetic foot ulcer Diabetic Foot Ulcer Problem 1 04/21/2019 12:00:00 AM EST [place] ([facility]) [id number] Diabetic foot ulcer Diabetic Foot Ulcer Problem 1 04/21/2019 12:00:00 AM EST [place] ([facility]) [id number] Diabetic foot ulcer Diabetic Foot Ulcer Problem 1 04/21/2019 12:00:00 AM EST [place] ([facility]) [id number] Diabetic foot ulcer Diabetic Foot Ulcer Problem 1 04/21/2019 12:00:00 AM EST [place] ([facility]) [id number] Diabetic foot ulcer Diabetic Foot Ulcer Problem 1 04/21/2019 12:00:00 AM EST [place] ([facility]) [id number] Diabetic foot ulcer Diabetic Foot Ulcer Problem 1 04/21/2019 12:00:00 AM EST [place] ([facility]) [id number] Diabetic foot ulcer Diabetic Foot Ulcer Problem 1 04/21/2019 12:00:00 AM EST [place] ([facility]) [id number] Diabetic foot ulcer Diabetic Foot Ulcer Problem 1 04/21/2019 12:00:00 AM EST [place] ([facility]) [id number] Diabetic foot ulcer Diabetic Foot Ulcer Problem 1 04/21/2019 12:00:00 AM EST [place] ([facility]) E11.40 Type 2 diabetes mellitus with diabetic n europathy, unspecified Type 2 diabetes mellitus with diabetic neuropathy, unspecified Problem 02/19/2020 12:00:00 AM EST [place] ([facility] ) E11.51 Type 2 diabetes mellitus wit h diabetic peripheral angiopathy without gangrene Type 2 diabetes mellitus with diabetic p eripheral angiopathy without gangrene Problem 02/19/2020 12:00:00 AM EST [facility] ([facility]) I87.2 Venous insufficiency (chronic) (peripher al) Venous insufficiency (chronic) (peripheral) Problem 02/19/2020 12:00:00 AM EST [facility] ([facility]) I12.9 Hypertensive chronic kidney disease with stage 1 through stage 4 chronic kidney disease, or unspecified chronic kidney disease Hypertensive chronic kidney disease with stage 1 through stage 4 chronic kidney disease, or unspecified chronic kidney disease Problem 02/19/2020 12:00:00 AM ES T [place] ([facility]) E11.22 Type 2 diabetes mellitus with diabetic c hronic kidney disease Type 2 diabetes mellitus with diabetic chronic kidney disease Problem 02/19/2020 12:00:00 AM EST [place] ([facility] ) N18.1 Chronic kidney disease, stage 1 Chronic kidney disease , stage 1 Problem 02/19/2020 12:00:00 AM EST [facility] ([facility] ) D63.1 Anemia in chronic kidney disease Anemia in chronic kid osmel disease Problem 02/19/2020 12:00:00 AM EST [place] ([facility] ) E11.65 Type 2 diabetes mellitus with hyperglyce ame Type 2 diabetes mellitus with hyperglycemia Problem 02/19/2020 12:00:00 AM EST [facility] ([facility]) M54.5 Low back pain Low back pain Problem 02/19/2020 12:00:00 AM EST [place] ([facility]) E55.9 Vitamin D deficiency, unspecified Vitamin D defi ciency, unspecified Problem 02/19/2020 12:00:00 AM EST [facility] ([facility]) F41.8 Other specified anxiety disorders Other specifie d anxiety disorders Problem 02/19/2020 12:00:00 AM EST [facility] ([facility]) F34.1 Dysthymic disorder Dysthymic disorder Problem 0 12:00:00 AM EST [place] ([facility]) N13.9 Obstructive and reflux uropathy, unspeci fied Obstructive and reflux uropathy, unspecified Problem 02/19/2020 12:00:00 AM EST [facility] ([facility]) H40.009 Preglaucoma, unspecified, unspecified ey e Preglaucoma, unspecified, unspecified eye Problem 02/19/2020 12:00:00 AM EST [facility] ([facility]) E66.09 Other obesity due to excess calories Oth er obesity due to excess calories Problem 02/19/2020 12:00:00 AM EST [facility] ([facility]) Z68.30 Body mass index [BMI]30.0-30.9, adult Jarred dy mass index [BMI]30.0-30.9, adult Problem 02/19/2020 12:00:00 AM EST [facility] ([facility]) 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) Ac quired absence of other left toe(s) Problem 02/19/2020 12:00:00 AM EST [facility] ([facility]) 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 Problem 02/19/2020 12:00:00 AM EST [facility] ([facility]) Z87.891 Personal history of nicotine dependence Personal history of nicotine dependence Problem 02/19/2020 12:00:00 AM EST [facility] ([facility]) Z91.81 History of falling History of falling Problem 0 12:00:00 AM EST [place] ([facility]) Z60.2 Problems related to living alone Problems related to l iving alone Problem 02/19/2020 12:00:00 AM EST [facility] ([facility] ) L97.511 Non-pressure chronic ulcer o f other part of right foot limited to breakdown of skin Non-pressure chronic ulcer of other part of right foot limited to breakdown of skin Problem 02/19/2020 12:00:00 AM EST [facility] ([facility]) E11.621 Type 2 diabetes mellitus with foot ulcer Type 2 diabetes mellitus with foot ulcer Problem 02/19/2020 12:00:00 AM EST [facility] ([facility]) I74.09 [id number] Aortoiliac occlusive disease Problem 01/15/2020 12:00:00 AM EDT eCW1 ([facility]) I73.9 [id number] Peripheral vascular disease Problem 01/15/20 20 12:00:00 AM EDT eCW1 ([facility]) L97.518 Non-pressure chronic ulcer o f other part of right foot with other specified severity Non-pressure chronic ulcer of other part of right foot with other specified severity & Other specified diabetes mellitus with foot ulcer 12/19/2019 09:07:57 AM EDT [facility] [id number] Ulcer of foot Ulcer of Foot Problem 12/19/2019 12:00:00 AM EDT [place] ([facility]) [id number] Ulcer of foot Ulcer of Foot Problem 12/19/2019 12:00:00 AM EDT [place] ([facility]) [id number] Ulcer of foot Ulcer of Foot Problem 12/19/2019 12:00:00 AM EDT [place] ([facility]) [id number] Ulcer of foot Ulcer of Foot Problem 12/19/2019 12:00:00 AM EDT [place] ([facility]) [id number] Ulcer of foot Ulcer of Foot Problem 12/19/2019 12:00:00 AM EDT [place] ([facility]) [id number] Ulcer of foot Ulcer of Foot Problem 12/19/2019 12:00:00 AM EDT [place] ([facility]) [id number] Ulcer of foot Ulcer of Foot Problem 12/19/2019 12:00:00 AM EDT [place] ([facility]) [id number] Ulcer of foot Ulcer of Foot Problem 12/19/2019 12:00:00 AM EDT [place] ([facility]) [id number] Ulcer of foot Ulcer of Foot Problem 12/19/2019 12:00:00 AM EDT [place] ([facility]) [id number] Ulcer of foot Ulcer of Foot Problem 12/19/2019 12:00:00 AM EDT [place] ([facility]) [id number] Ulcer of foot Ulcer of Foot Problem 12/19/2019 12:00:00 AM EDT [place] ([facility]) [id number] Ulcer of foot Ulcer of Foot Problem 12/19/2019 12:00:00 AM EDT [place] ([facility]) [id number] Ulcer of foot Ulcer of Foot Problem 12/19/2019 12:00:00 AM EDT [place] ([facility]) [id number] Ulcer of foot Ulcer of Foot Problem 12/19/2019 12:00:00 AM EDT [place] ([facility]) [id number] Ulcer of foot Ulcer of Foot Problem 12/19/2019 12:00:00 AM EDT [facility]) Surgeries/Procedures Procedure Description Date Indications Data Source(s) FINE NEEDLE ASPIRATION W/O IMAGING GUIDANCE 03/02/2020 12:00:00 AM EST eCW1 ([facility]) Results ID Date Data Source [id number] 01/14/2021 10:14:00 AM EDT [place] ([facility]) Name Value Range Interpretation Code Description Data Rosita rce(s) Supporting Document(s) Hemoglobin A1c/Hemoglobin.total in Blood 12.4 % Abnormal (applies to non- numeric results) Hba1C [place] ([facility]) ID Date Data Source [id number] 01/10/2021 03:37:00 PM EDT [place] ([facility]) Name Value Range Interpretation Code Description Data Rosita rce(s) Supporting Document(s) Glucose [Mass/volume] in Serum or Plasma 413 mg/dL 65-99 Above high normal Glucose [place] ([facility]) Creatinine [Mass/volume] in Serum or Plasma 1.51 mg/dL 0.70 -1.18 Above high normal Creatinine [place] ([facility]) Urea nitrogen [Mass/volume] in Serum or Plasma 15 mg/dL 7-25 Urea Nitrogen (BUN) [place] ([facility]) Glomerular filtration rate/1.73 sq M.pre dicted among non-blacks [Volume Rate/Area] in Serum, Plasma or Blood by Creatinine-based formula (CKD-EPI) 46 mL/min/1.73m2 > or = 60 Below low normal eGFR Non-afr. Palestinian [place] ( [facility]) Glomerular filtration rate/1.73 sq M.pre dicted among blacks [Volume Rate/Area] in Serum, Plasma or Blood by Creatinine-based formula (CKD-EPI) 53 mL/min/1.73m2 > or = 60 Below low normal eGFR [place] ([facility]) Sodium [Moles/volume] in Serum or Plasma 140 mmol/L 135-146 Sodium [place] ([facility]) Urea nitrogen/Creatinine [Mass Ratio] in Serum or Plasma 10 (calc) 6-22 BUN/creatinine Ratio [place] ([facility]) Potassium [Moles/volume] in Serum or Plasma 5.4 mmol/L 3.5- 5.3 Above high normal Potassium [place] ([facility]) Carbon dioxide, total [Moles/volume] in Serum or Plasma 22 mmol/L 20-32 Carbon Dioxide [place] ([facility]) Chloride [Moles/volume] in Serum or Plasma 103 mmol/L 98-110 Chloride [place] ([facility]) Protein [Mass/volume] in Serum or Plasma 5.9 g/dL 6.1-8.1 Below low normal Protein, Total [place] ([facility]) Calcium [Mass/volume] in Serum or Plasma 8.3 mg/dL 8.6-10.3 Below low normal Calcium [place] ([facility]) Albumin [Mass/volume] in Serum or Plasma 2.5 g/dL 3.6-5.1 Below low normal Albumin [place] ([facility]) Globulin [Mass/volume] in Serum by calculation 3.4 g/dL_(calc) 1.9- 3.7 Globulin [place] ([facility]) Albumin/Globulin [Mass Ratio] in Serum or Plasma 0.7 (calc) 1.0-2.5 Below low normal Albumin/globulin Ratio [place] ([facility]) Alkaline phosphatase [Enzymatic activity/volume] in Serum or Plasma 96 U/L 35-144 Alkaline Phosphatase [place] ([facility]) Bilirubin.total [Mass/volume] in Serum or Plasma 0.4 mg/dL 0.2-1 .2 Bilirubin, Total [place] ([facility]) Alanine aminotransferase [Enzymatic activity/volume] in Seru m or Plasma 5 U/L 9-46 Below low normal Alt [place] ([facility]) Aspartate aminotransferase [Enzymatic activity/volume] in Serum or Plasma 15 U/L 10-35 Ast [place] ([facility]) ID Date Data Source [id number] 01/10/2021 03:37:00 PM EDT [facility]) Name Value Range Interpretation Code Description Data Rosita rce(s) Supporting Document(s) Urea nitrogen [Mass/volume] in Serum or Plasma 15 mg/dL 7-25 Urea Nitrogen (BUN) [place] ([facility]) Glucose [Mass/volume] in Serum or Plasma 413 mg/dL 65-99 Above high normal Glucose [place] ([facility]) Creatinine [Mass/volume] in Serum or Plasma 1.51 mg/dL 0.70 -1.18 Above high normal Creatinine [place] ([facility]) Glomerular filtration rate/1.73 sq M.pre dicted among blacks [Volume Rate/Area] in Serum, Plasma or Blood by Creatinine-based formula (CKD-EPI) 53 mL/min/1.73m2 > or = 60 Below low normal eGFR [place] ([facility]) Glomerular filtration rate/1.73 sq M.pre dicted among non-blacks [Volume Rate/Area] in Serum, Plasma or Blood by Creatinine-based formula (CKD-EPI) 46 mL/min/1.73m2 > or = 60 Below low normal eGFR Non-afr. Palestinian [place] ( [facility]) Urea nitrogen/Creatinine [Mass Ratio] in Serum or Plasma 10 (calc) 6-22 BUN/creatinine Ratio [place] ([facility]) Sodium [Moles/volume] in Serum or Plasma 140 mmol/L 135-146 Sodium [place] ([facility]) Potassium [Moles/volume] in Serum or Plasma 5.4 mmol/L 3.5- 5.3 Above high normal Potassium [place] ([facility]) Chloride [Moles/volume] in Serum or Plasma 103 mmol/L 98-110 Chloride [place] ([facility]) Calcium [Mass/volume] in Serum or Plasma 8.3 mg/dL 8.6-10.3 Below low normal Calcium [place] ([facility]) Carbon dioxide, total [Moles/volume] in Serum or Plasma 22 mmol/L 20-32 Carbon Dioxide [place] ([facility]) Protein [Mass/volume] in Serum or Plasma 5.9 g/dL 6.1-8.1 Below low normal Protein, Total [place] ([facility]) Albumin [Mass/volume] in Serum or Plasma 2.5 g/dL 3.6-5.1 Below low normal Albumin [place] ([facility]) Albumin/Globulin [Mass Ratio] in Serum or Plasma 0.7 (calc) 1.0-2.5 Below low normal Albumin/globulin Ratio [place] ([facility]) Globulin [Mass/volume] in Serum by calculation 3.4 g/dL_(calc) 1.9- 3.7 Globulin [place] ([facility]) Alkaline phosphatase [Enzymatic activity/volume] in Serum or Plasma 96 U/L 35-144 Alkaline Phosphatase [place] ([facility]) Bilirubin.total [Mass/volume] in Serum or Plasma 0.4 mg/dL 0.2-1 .2 Bilirubin, Total [place] ([facility]) Alanine aminotransferase [Enzymatic activity/volume] in Seru m or Plasma 5 U/L 9-46 Below low normal Alt [place] ([facility]) Aspartate aminotransferase [Enzymatic activity/volume] in Serum or Plasma 15 U/L 10-35 Ast [place] ([facility]) ID Date Data Source [id number] 10/27/2020 02:10:00 PM EDT [place] ([facility]) Name Value Range Interpretation Code Description Data Rosita rce(s) Supporting Document(s) Blood Glucose: mg/dl Blood Glucose: mg/dl [place] ([facility]) ID Date Data Source [id number] 10/27/2020 02:10:00 PM EDT [place] ([facility]) Name Value Range Interpretation Code Description Data Rosita rce(s) Supporting Document(s) Blood Glucose: mg/dl Blood Glucose: mg/dl [place] ([facility]) ID Date Data Source [id number] 10/27/2020 02:10:00 PM EDT [facility]) Name Value Range Interpretation Code Description Data Rosita rce(s) Supporting Document(s) Blood Glucose: mg/dl Blood Glucose: mg/dl [place] ([facility]) ID Date Data Source [id number] 10/27/2020 02:10:00 PM EDT [facility]) Name Value Range Interpretation Code Description Data Rosita rce(s) Supporting Document(s) Blood Glucose: mg/dl Blood Glucose: mg/dl [place] ([facility]) ID Date Data Source [id number] 10/27/2020 02:10:00 PM EDT [facility]) Name Value Range Interpretation Code Description Data Rosita rce(s) Supporting Document(s) Blood Glucose: mg/dl Blood Glucose: mg/dl [place] ([facility]) ID Date Data Source [id number] 10/27/2020 01:51:00 PM EDT [facility]) Name Value Range Interpretation Code Description Data Rosita rce(s) Supporting Document(s) bedside glucose 373 mg/dL 83-110 Above high normal Bedside Gluco se [facility]) ID Date Data Source [id number] 10/27/2020 01:51:00 PM EDT [facility]) Name Value Range Interpretation Code Description Data Rosita rce(s) Supporting Document(s) bedside glucose 373 mg/dL 83-110 Above high normal Bedside Gluco se [facility]) ID Date Data Source [id number] 10/27/2020 01:51:00 PM EDT [facility]) Name Value Range Interpretation Code Description Data Rosita rce(s) Supporting Document(s) bedside glucose 373 mg/dL 83-110 Above high normal Bedside Gluco se [facility]) ID Date Data Source [id number] 10/27/2020 01:51:00 PM EDT [facility]) Name Value Range Interpretation Code Description Data Rosiat rce(s) Supporting Document(s) bedside glucose 373 mg/dL 83-110 Above high normal Bedside Gluco se [facility]) ID Date Data Source [id number] 10/27/2020 01:51:00 PM EDT [facility]) Name Value Range Interpretation Code Description Data Rosita rce(s) Supporting Document(s) bedside glucose 373 mg/dL 83-110 Above high normal Bedside Gluco se [facility]) ID Date Data Source [id number] 10/27/2020 11:55:00 AM EDT [facility]) Name Value Range Interpretation Code Description Data Rosita rce(s) Supporting Document(s) istat troponin 0.00 NG/mL 0.00-0.08 Istat Troponin [facility]) ID Date Data Source [id number] 10/27/2020 11:55:00 AM EDT [facility]) Name Value Range Interpretation Code Description Data Rosita rce(s) Supporting Document(s) bedside glucose 412 mg/dL 83-110 Above high normal Bedside Gluco se [place] [facility]) ID Date Data Source [id number] 10/27/2020 11:55:00 AM EDT [facility]) Name Value Range Interpretation Code Description Data Rosita rce(s) Supporting Document(s) istat troponin 0.00 NG/mL 0.00-0.08 Istat Troponin [place] ([facility]) ID Date Data Source [id number] 10/27/2020 11:55:00 AM EDT [facility]) Name Value Range Interpretation Code Description Data Rosita rce(s) Supporting Document(s) bedside glucose 412 mg/dL 83-110 Above high normal Bedside Gluco se [place] ([facility]) ID Date Data Source [id number] 10/27/2020 11:55:00 AM EDT [facility]) Name Value Range Interpretation Code Description Data Rosita rce(s) Supporting Document(s) istat troponin 0.00 NG/mL 0.00-0.08 Istat Troponin [place] ([facility]) ID Date Data Source [id number] 10/27/2020 11:55:00 AM EDT [facility]) Name Value Range Interpretation Code Description Data Rosita rce(s) Supporting Document(s) bedside glucose 412 mg/dL 83-110 Above high normal Bedside Gluco se [place] ([facility]) ID Date Data Source [id number] 10/27/2020 11:55:00 [facility] Name Value Range Interpretation Code Description Data Rosita rce(s) Supporting Document(s) istat troponin 0.00 NG/mL 0.00-0.08 Istat Troponin [place] ([facility]) ID Date Data Source [id number] 10/27/2020 11:55:00 AM EDT [facility]) Name Value Range Interpretation Code Description Data Rosita rce(s) Supporting Document(s) bedside glucose 412 mg/dL 83-110 Above high normal Bedside Gluco se [place] ([facility]) ID Date Data Source [id number] 10/27/2020 11:55:00 AM EDT [place] ([facility]) Name Value Range Interpretation Code Description Data Rosita rce(s) Supporting Document(s) istat troponin 0.00 NG/mL 0.00-0.08 Istat Troponin [facility] ([facility]) ID Date Data Source [id number] 10/27/2020 11:55:00 AM EDT [place] ([facility]) Name Value Range Interpretation Code Description Data Rosita rce(s) Supporting Document(s) bedside glucose 412 mg/dL 83-110 Above high normal Bedside Gluco se [place] ([facility]) ID Date Data Source [id number] 10/27/2020 11:49:00 AM EDT [facility]) Name Value Range Interpretation Code Description Data Rosita rce(s) Supporting Document(s) glucose, fasting 429 mg/dL 70-100 Above high normal Glucose, Fas ting [place] ([facility]) creatinine for GFR 1.61 mg/dL 0.70-1.30 Above high normal Creatinine for GFR [place] ([facility]) blood urea nitrogen 17 mg/dL 7-18 Blood Urea Nitro gen [place] ([facility]) sodium level 138 mEq/L 136-145 Sodium Level [place] (No [facility]) glomerular filtration rate >42 Glomerula r Filtration Rate [place] ([facility]) potassium serum 3.6 mEq/L 3.5-5.1 Potassium Serum [place] ([facility]) carbon dioxide level 28 mEq/L 21-32 Carbon Dioxide Level [place] ([facility]) anion gap 6 mEq/L 8-16 Below low normal Anion Gap [place] ( [facility]) chloride level 104 mEq/L 98-107 Chloride Level [place] ([facility]) calcium level 9.4 mg/dL 8.8-10.2 Calcium Level [place] ( [facility]) ID Date Data Source [id number] 10/27/2020 11:49:00 AM EDT [place] ([facility]) Name Value Range Interpretation Code Description Data Rosita rce(s) Supporting Document(s) white blood count 6.2 10 4.0-10.0 White Blood Count [place] ([facility]) red blood count 4.78 10 4.30-6.10 Red Blood Count [facility] ([facility]) hematocrit 41.5 % 42.0-52.0 Below low normal Hematocrit [place] ( [facility]) hemoglobin 13.6 g/dL 13.5-17.5 Hemoglobin [place] ([facility]) mean corpuscular hemoglobin 28.5 pg 27.0-33.0 Mean Cor puscular Hemoglobin [place] ([facility]) mean corpuscular volume 86.8 fL 80.0-96.0 Mean Corpusc ular Volume [place] ([facility]) platelet count, automated 226 10 150-450 Platelet C ount, Automated [place] ([facility]) red cell distribution width 13.6 % 11.5-14.5 Red Cell Distribution Width [place] ([facility]) mean corpuscular HGB conc 32.8 g/dL 32.0-36.5 Mean Corpu scular HGB Conc [place] ([facility]) neutrophils % 57.0 % 36.0-66.0 Neutrophils % [place] ( [facility]) lymph % 28.6 % 24.0-44.0 Lymph % [place] ([facility]) mono % 8.2 % 2.0-8.0 Above high normal [place] % [place] ([facility]) baso % 1.4 % 0.0-1.0 Above high normal Baso % [place] ([facility]) eos % 4.0 % 0.0-3.0 Above high normal Eos % [place] ([facility]) immature granulocyte % 0.8 % 0-3.0 Immature Gran ulocyte % [place] ([facility]) nucleated red blood cell % 0.0 % 0-0 Nucleated Red Blood Cell % [place] ([facility]) neutrophils # 3.6 10 1.5-8.5 Neutrophils # [place] ( [facility]) lymph # 1.8 10 1.5-5.0 Lymph # [place] ([facility]) baso # 0.1 10 0.0-0.2 Baso # [place] ([facility]) mono # 0.5 10 0.0-0.8 [place] # [place] ([facility]) eos # 0.3 10 0.0-0.5 Eos # [place] ([facility]) ID Date Data Source [id number] 10/27/2020 11:49:00 AM EDT [place] ([facility]) Name Value Range Interpretation Code Description Data Rosita rce(s) Supporting Document(s) glucose, fasting 429 mg/dL 70-100 Above high normal Glucose, Fas ting [place] ([facility]) blood urea nitrogen 17 mg/dL 7-18 Blood Urea Nitro gen [place] ([facility]) creatinine for GFR 1.61 mg/dL 0.70-1.30 Above high normal Creatinine for GFR [place] ([facility]) sodium level 138 mEq/L 136-145 Sodium Level [place] (No [facility]) glomerular filtration rate >42 Glomerula r Filtration Rate [place] ([facility]) carbon dioxide level 28 mEq/L 21-32 Carbon Dioxide Level [place] ([facility]) chloride level 104 mEq/L 98-107 Chloride Level [place] ([facility]) potassium serum 3.6 mEq/L 3.5-5.1 Potassium Serum [place] [place] ([facility]) calcium level 9.4 mg/dL 8.8-10.2 Calcium Level [place] ( [facility]) anion gap 6 mEq/L 8-16 Below low normal Anion Gap [place] ( [facility]) ID Date Data Source [id number] 10/27/2020 11:49:00 AM EDT [place] ([facility]) Name Value Range Interpretation Code Description Data Rosita rce(s) Supporting Document(s) red blood count 4.78 10 4.30-6.10 Red Blood Count [place] [place] ([facility]) white blood count 6.2 10 4.0-10.0 White Blood Count [place] ([facility]) hematocrit 41.5 % 42.0-52.0 Below low normal Hematocrit [place] ( [facility]) hemoglobin 13.6 g/dL 13.5-17.5 Hemoglobin [place] ([facility]) mean corpuscular volume 86.8 fL 80.0-96.0 Mean Corpusc ular Volume [place] ([facility]) mean corpuscular hemoglobin 28.5 pg 27.0-33.0 Mean Cor puscular Hemoglobin [place] ([facility]) mean corpuscular HGB conc 32.8 g/dL 32.0-36.5 Mean Corpu scular HGB Conc [place] ([facility]) red cell distribution width 13.6 % 11.5-14.5 Red Cell Distribution Width [place] ([facility]) platelet count, automated 226 10 150-450 Platelet C ount, Automated [place] ([facility]) neutrophils % 57.0 % 36.0-66.0 Neutrophils % [place] ( [facility]) lymph % 28.6 % 24.0-44.0 Lymph % [place] ([facility]) eos % 4.0 % 0.0-3.0 Above high normal Eos % [place] ([facility]) mono % 8.2 % 2.0-8.0 Above high normal [place] % [place] ([facility]) baso % 1.4 % 0.0-1.0 Above high normal Baso % [place] ([facility]) immature granulocyte % 0.8 % 0-3.0 Immature Gran ulocyte % [place] ([facility]) nucleated red blood cell % 0.0 % 0-0 Nucleated Red Blood Cell % [place] ([facility]) neutrophils # 3.6 10 1.5-8.5 Neutrophils # [place] ( [facility]) lymph # 1.8 10 1.5-5.0 Lymph # [place] ([facility]) eos # 0.3 10 0.0-0.5 Eos # [place] ([facility]) mono # 0.5 10 0.0-0.8 [place] # [place] ([facility]) baso # 0.1 10 0.0-0.2 Baso # [place] ([facility]) ID Date Data Source [id number] 10/27/2020 11:49:00 AM EDT [place] ([facility]) Name Value Range Interpretation Code Description Data Rosita rce(s) Supporting Document(s) glucose, fasting 429 mg/dL 70-100 Above high normal Glucose, Fas ting [place] ([facility]) blood urea nitrogen 17 mg/dL 7-18 Blood Urea Nitro gen [place] ([facility]) glomerular filtration rate >42 Glomerula r Filtration Rate [place] ([facility]) creatinine for GFR 1.61 mg/dL 0.70-1.30 Above high normal Creatinine for GFR [place] ([facility]) potassium serum 3.6 mEq/L 3.5-5.1 Potassium Serum [facility] [place] ([facility]) sodium level 138 mEq/L 136-145 Sodium Level [place] (No [facility]) carbon dioxide level 28 mEq/L 21-32 Carbon Dioxide Level [place] ([facility]) chloride level 104 mEq/L 98-107 Chloride Level [place] ([facility]) anion gap 6 mEq/L 8-16 Below low normal Anion Gap [place] ( [facility]) calcium level 9.4 mg/dL 8.8-10.2 Calcium Level [place] ( [facility]) ID Date Data Source [id number] 10/27/2020 11:49:00 AM EDT [place] ([facility]) Name Value Range Interpretation Code Description Data Rosita rce(s) Supporting Document(s) white blood count 6.2 10 4.0-10.0 White Blood Count [place] ([facility]) hemoglobin 13.6 g/dL 13.5-17.5 Hemoglobin [place] ([facility]) red blood count 4.78 10 4.30-6.10 Red Blood Count [facility] ([facility]) hematocrit 41.5 % 42.0-52.0 Below low normal Hematocrit [place] ( [facility]) mean corpuscular volume 86.8 fL 80.0-96.0 Mean Corpusc ular Volume [place] ([facility]) mean corpuscular HGB conc 32.8 g/dL 32.0-36.5 Mean Corpu scular HGB Conc [place] ([facility]) mean corpuscular hemoglobin 28.5 pg 27.0-33.0 Mean Cor puscular Hemoglobin [place] ([facility]) red cell distribution width 13.6 % 11.5-14.5 Red Cell Distribution Width [place] ([facility]) platelet count, automated 226 10 150-450 Platelet C ount, Automated [place] ([facility]) neutrophils % 57.0 % 36.0-66.0 Neutrophils % [place] ( [facility]) lymph % 28.6 % 24.0-44.0 Lymph % [place] ([facility]) mono % 8.2 % 2.0-8.0 Above high normal [place] % [place] ([facility]) eos % 4.0 % 0.0-3.0 Above high normal Eos % [place] ([facility]) baso % 1.4 % 0.0-1.0 Above high normal Baso % [facility]) neutrophils # 3.6 10 1.5-8.5 Neutrophils # [place] ( [facility]) nucleated red blood cell % 0.0 % 0-0 Nucleated Red Blood Cell % [place] ([facility]) immature granulocyte % 0.8 % 0-3.0 Immature Gran ulocyte % [place] ([facility]) lymph # 1.8 10 1.5-5.0 Lymph # [place] ([facility]) mono # 0.5 10 0.0-0.8 [place] # [place] ([facility]) baso # 0.1 10 0.0-0.2 Baso # [place] ([facility]) eos # 0.3 10 0.0-0.5 Eos # [place] ([facility]) ID Date Data Source [id number] 10/27/2020 11:49:00 AM EDT [place] ([facility]) Name Value Range Interpretation Code Description Data Rosita rce(s) Supporting Document(s) glucose, fasting 429 mg/dL 70-100 Above high normal Glucose, Fas ting [place] ([facility]) creatinine for GFR 1.61 mg/dL 0.70-1.30 Above high normal Creatinine for GFR [place] ([facility]) blood urea nitrogen 17 mg/dL 7-18 Blood Urea Nitro gen [place] ([facility]) glomerular filtration rate >42 Glomerula r Filtration Rate [place] ([facility]) sodium level 138 mEq/L 136-145 Sodium Level [place] ([facility]) potassium serum 3.6 mEq/L 3.5-5.1 Potassium Serum [place] ([facility]) carbon dioxide level 28 mEq/L 21-32 Carbon Dioxide Level [place] ([facility]) chloride level 104 mEq/L 98-107 Chloride Level [place] ([facility]) anion gap 6 mEq/L 8-16 Below low normal Anion Gap [place] ( [facility]) calcium level 9.4 mg/dL 8.8-10.2 Calcium Level [place] ( [facility]) ID Date Data Source [id number] 10/27/2020 11:49:00 AM EDT [place] ([facility]) Name Value Range Interpretation Code Description Data Rosita rce(s) Supporting Document(s) white blood count 6.2 10 4.0-10.0 White Blood Count [place] ([facility]) hematocrit 41.5 % 42.0-52.0 Below low normal Hematocrit [place] ( [facility]) hemoglobin 13.6 g/dL 13.5-17.5 Hemoglobin [place] ([facility]) red blood count 4.78 10 4.30-6.10 Red Blood Count [facility] [place] ([facility]) mean corpuscular volume 86.8 fL 80.0-96.0 Mean Corpusc ular Volume [place] ([facility]) mean corpuscular hemoglobin 28.5 pg 27.0-33.0 Mean Cor puscular Hemoglobin [place] ([facility]) red cell distribution width 13.6 % 11.5-14.5 Red Cell Distribution Width [place] ([facility]) mean corpuscular HGB conc 32.8 g/dL 32.0-36.5 Mean Corpu scular HGB Conc [place] ([facility]) lymph % 28.6 % 24.0-44.0 Lymph % [place] ([facility]) neutrophils % 57.0 % 36.0-66.0 Neutrophils % [place] ( [facility]) platelet count, automated 226 10 150-450 Platelet C ount, Automated [place] ([facility]) eos % 4.0 % 0.0-3.0 Above high normal Eos % [place] ([facility]) baso % 1.4 % 0.0-1.0 Above high normal Baso % [place] ([facility]) mono % 8.2 % 2.0-8.0 Above high normal [place] % [place] ([facility]) nucleated red blood cell % 0.0 % 0-0 Nucleated Red Blood Cell % [place] ([facility]) immature granulocyte % 0.8 % 0-3.0 Immature Gran ulocyte % [place] ([facility]) lymph # 1.8 10 1.5-5.0 Lymph # [place] ([facility]) mono # 0.5 10 0.0-0.8 [place] # [place] ([facility]) neutrophils # 3.6 10 1.5-8.5 Neutrophils # [place] ( [facility]) baso # 0.1 10 0.0-0.2 Baso # [place] ([facility]) eos # 0.3 10 0.0-0.5 Eos # [place] ([facility]) ID Date Data Source [id number] 10/27/2020 11:49:00 AM EDT [place] ([facility]) Name Value Range Interpretation Code Description Data Rosita rce(s) Supporting Document(s) blood urea nitrogen 17 mg/dL 7-18 Blood Urea Nitro gen [place] ([facility]) glucose, fasting 429 mg/dL 70-100 Above high normal Glucose, Fas ting [place] ([facility]) glomerular filtration rate >42 Glomerula r Filtration Rate [place] ([facility]) creatinine for GFR 1.61 mg/dL 0.70-1.30 Above high normal Creatinine for GFR [place] ([facility]) sodium level 138 mEq/L 136-145 Sodium Level [place] ([facility]) chloride level 104 mEq/L 98-107 Chloride Level [place] ([facility]) potassium serum 3.6 mEq/L 3.5-5.1 Potassium Serum [place] ([facility]) calcium level 9.4 mg/dL 8.8-10.2 Calcium Level [place] ( [facility]) carbon dioxide level 28 mEq/L 21-32 Carbon Dioxide Level [place] ([facility]) anion gap 6 mEq/L 8-16 Below low normal Anion Gap [place] ( [facility]) ID Date Data Source [id number] 10/27/2020 11:49:00 AM EDT [place] ([facility]) Name Value Range Interpretation Code Description Data Rosita rce(s) Supporting Document(s) white blood count 6.2 10 4.0-10.0 White Blood Count [place] ([facility]) red blood count 4.78 10 4.30-6.10 Red Blood Count [place] ([facility]) hemoglobin 13.6 g/dL 13.5-17.5 Hemoglobin [place] ([facility]) hematocrit 41.5 % 42.0-52.0 Below low normal Hematocrit [place] ( [facility]) mean corpuscular volume 86.8 fL 80.0-96.0 Mean Corpusc ular Volume [place] ([facility]) mean corpuscular hemoglobin 28.5 pg 27.0-33.0 Mean Cor puscular Hemoglobin [place] ([facility]) mean corpuscular HGB conc 32.8 g/dL 32.0-36.5 Mean Corpu scular HGB Conc [place] ([facility]) platelet count, automated 226 10 150-450 Platelet C ount, Automated [place] ([facility]) neutrophils % 57.0 % 36.0-66.0 Neutrophils % [place] ( [facility]) red cell distribution width 13.6 % 11.5-14.5 Red Cell Distribution Width [place] ([facility]) mono % 8.2 % 2.0-8.0 Above high normal [place] % [place] ([facility]) lymph % 28.6 % 24.0-44.0 Lymph % [place] ([facility]) immature granulocyte % 0.8 % 0-3.0 Immature Gran ulocyte % [place] ([facility]) eos % 4.0 % 0.0-3.0 Above high normal Eos % [place] ([facility]) baso % 1.4 % 0.0-1.0 Above high normal Baso % [place] ([facility]) nucleated red blood cell % 0.0 % 0-0 Nucleated Red Blood Cell % [place] ([facility]) neutrophils # 3.6 10 1.5-8.5 Neutrophils # [place] ( [facility]) lymph # 1.8 10 1.5-5.0 Lymph # [place] ([facility]) mono # 0.5 10 0.0-0.8 [place] # [place] ([facility]) eos # 0.3 10 0.0-0.5 Eos # [place] ([facility]) baso # 0.1 10 0.0-0.2 Baso # [place] ([facility]) ID Date Data Source [id number] 10/27/2020 11:46:00 AM EDT [place] ([facility]) Name Value Range Interpretation Code Description Data Rosita rce(s) Supporting Document(s) estimated average glucose 346 mg/dL 60-110 Above high norm al Estimated Average Glucose [place] ([facility]) Hemoglobin A1c/Hemoglobin.total in Blood 13.7 % Hemoglobin a1C [facility]) ID Date Data Source [id number] 10/27/2020 11:46[facility] Name Value Range Interpretation Code Description Data Rosita rce(s) Supporting Document(s) Hemoglobin A1c/Hemoglobin.total in Blood 13.7 % Hemoglobin a1C [place] ([facility]) estimated average glucose 346 mg/dL 60-110 Above high norm al Estimated Average Glucose [place] ([facility]) ID Date Data Source [id number] 10/27/2020 11:46:00 AM EDT [place] ([facility]) Name Value Range Interpretation Code Description Data Rosita rce(s) Supporting Document(s) Hemoglobin A1c/Hemoglobin.total in Blood 13.7 % Hemoglobin a1C [place] ([facility]) estimated average glucose 346 mg/dL 60-110 Above high norm al Estimated Average Glucose [place] ([facility]) ID Date Data Source [id number] 10/27/2020 11:46:00 AM EDT [place] ([facility]) Name Value Range Interpretation Code Description Data Rosita rce(s) Supporting Document(s) Hemoglobin A1c/Hemoglobin.total in Blood 13.7 % Hemoglobin a1C [facility] ([facility]) estimated average glucose 346 mg/dL 60-110 Above high norm al Estimated Average Glucose [facility]) ID Date Data Source [id number] 10/27/2020 11:46:00 AM EDT [facility]) Name Value Range Interpretation Code Description Data Rosita rce(s) Supporting Document(s) Hemoglobin A1c/Hemoglobin.total in Blood 13.7 % Hemoglobin a1C [facility] ([facility]) estimated average glucose 346 mg/dL 60-110 Above high norm al Estimated Average Glucose [facility] ([facility]) ID Date Data Source [id number] 10/27/2020 11:05:00 AM EDT [facility]) Name Value Range Interpretation Code Description Data Rosita rce(s) Supporting Document(s) Hemoglobin A1c/Hemoglobin.total in Blood 14.0 % Abnormal (applies to non- numeric results) Hba1C [facility] ([facility]) ID Date Data Source [id number] 10/27/2020 11:05:00 AM EDT [facility]) Name Value Range Interpretation Code Description Data Rosita rce(s) Supporting Document(s) Hemoglobin A1c/Hemoglobin.total in Blood 14.0 % Abnormal (applies to non- numeric results) Hba1C [facility] ([facility]) ID Date Data Source [id number] 10/27/2020 11:05:00 AM EDT [facility]) Name Value Range Interpretation Code Description Data Rosita rce(s) Supporting Document(s) Hemoglobin A1c/Hemoglobin.total in Blood 14.0 % Abnormal (applies to non- numeric results) Hba1C [facility] ([facility]) ID Date Data Source [id number] 10/27/2020 11:05:00 AM EDT [facility]) Name Value Range Interpretation Code Description Data Rosita rce(s) Supporting Document(s) Hemoglobin A1c/Hemoglobin.total in Blood 14.0 % Abnormal (applies to non- numeric results) Hba1C [facility] ([facility]) ID Date Data Source [id number] 10/27/2020 11:05:00 AM EDT [facility]) Name Value Range Interpretation Code Description Data Rosita rce(s) Supporting Document(s) Hemoglobin A1c/Hemoglobin.total in Blood 14.0 % Abnormal (applies to non- numeric results) Hba1C [facility] ([facility]) ID Date Data Source [id number] 10/27/2020 11:05:00 AM EDT [facility]) Name Value Range Interpretation Code Description Data Rosita rce(s) Supporting Document(s) Hemoglobin A1c/Hemoglobin.total in Blood 14.0 % Abnormal (applies to non- numeric results) Hba1C [facility] ([facility]) ID Date Data Source [id number] 10/06/2020 12:00:00 AM EDT [facility]) Name Value Range Interpretation Code Description Data Rosita rce(s) Supporting Document(s) Hemoglobin A1c/Hemoglobin.total in Blood >14.0 <5.7 Above high normal Hemoglobin a1C [facility]) ID Date Data Source [id number] 10/06/2020 12:00:00 AM EDT [facility]) Name Value Range Interpretation Code Description Data Rosita rce(s) Supporting Document(s) Glucose [Mass/volume] in Serum or Plasma 549 mg/dL 65-99 Above high normal Glucose [facility] ([facility]) Urea nitrogen [Mass/volume] in Serum or Plasma 36 mg/dL 7-25 Above high normal Urea Nitrogen (BUN) [facility] ([facility]) Glomerular filtration rate/1.73 sq M.pre dicted among blacks [Volume Rate/Area] in Serum, Plasma or Blood by Creatinine-based formula (CKD-EPI) 67 mL/min/1.73m2 > or = 60 eGFR [place] ([facility]) Glomerular filtration rate/1.73 sq M.pre dicted among non-blacks [Volume Rate/Area] in Serum, Plasma or Blood by Creatinine-based formula (CKD-EPI) 57 mL/min/1.73m2 > or = 60 Below low normal eGFR Non-afr. Palestinian [place] ( [facility]) Creatinine [Mass/volume] in Serum or Plasma 1.26 mg/dL 0.70 -1.18 Above high normal Creatinine [place] ([facility]) Urea nitrogen/Creatinine [Mass Ratio] in Serum or Plasma 29 (kenia c) 6-22 Above high normal BUN/creatinine Ratio [place] ([facility]) Sodium [Moles/volume] in Serum or Plasma 131 mmol/L 135-146 Below low normal Sodium [place] ([facility]) Potassium [Moles/volume] in Serum or Plasma 4.7 mmol/L 3.5-5.3 Potassium [place] ([facility]) Chloride [Moles/volume] in Serum or Plasma 98 mmol/L 98-110 Chloride [place] ([facility]) Carbon dioxide, total [Moles/volume] in Serum or Plasma 28 mmol/L 20-32 Carbon Dioxide [place] ([facility]) Calcium [Mass/volume] in Serum or Plasma 8.9 mg/dL 8.6-10.3 Calcium [place] ([facility]) Albumin [Mass/volume] in Serum or Plasma 2.9 g/dL 3.6-5.1 Below low normal Albumin [place] ([facility]) Globulin [Mass/volume] in Serum by calculation 3.3 g/dL_(calc) 1.9- 3.7 Globulin [place] ([facility]) Protein [Mass/volume] in Serum or Plasma 6.2 g/dL 6.1-8.1 Protein, Total [place] ([facility]) Bilirubin.total [Mass/volume] in Serum or Plasma 0.4 mg/dL 0.2-1 .2 Bilirubin, Total [place] ([facility]) Albumin/Globulin [Mass Ratio] in Serum or Plasma 0.9 (calc) 1.0-2.5 Below low normal Albumin/globulin Ratio [place] ([facility]) Alkaline phosphatase [Enzymatic activity/volume] in Serum or Plasma 98 U/L 35-144 Alkaline Phosphatase [place] ([facility]) Alanine aminotransferase [Enzymatic activity/volume] in Seru m or Plasma 8 U/L 9-46 Below low normal Alt [place] ([facility]) Aspartate aminotransferase [Enzymatic activity/volume] in Serum or Plasma 10 U/L 10-35 Ast [facility] ([facility]) ID Date Data Source [id number] 10/06/2020 12:00:00 AM EDT [facility] ([facility]) Name Value Range Interpretation Code Description Data Rosita rce(s) Supporting Document(s) Hemoglobin A1c/Hemoglobin.total in Blood >14.0 <5.7 Above high normal Hemoglobin a1C [facility] ([facility]) ID Date Data Source [id number] 10/06/2020 12:00:00 AM EDT [facility] ([facility]) Name Value Range Interpretation Code Description Data Rosita rce(s) Supporting Document(s) Glucose [Mass/volume] in Serum or Plasma 549 mg/dL 65-99 Above high normal Glucose [facility] ([facility]) Urea nitrogen [Mass/volume] in Serum or Plasma 36 mg/dL 7-25 Above high normal Urea Nitrogen (BUN) [facility] ([facility]) Creatinine [Mass/volume] in Serum or Plasma 1.26 mg/dL 0.70 -1.18 Above high normal Creatinine [facility] ([facility]) Glomerular filtration rate/1.73 sq M.pre dicted among non-blacks [Volume Rate/Area] in Serum, Plasma or Blood by Creatinine-based formula (CKD-EPI) 57 mL/min/1.73m2 > or = 60 Below low normal eGFR Non-afr. Palestinian [place] ( [facility]) Urea nitrogen/Creatinine [Mass Ratio] in Serum or Plasma 29 (kenia c) 6-22 Above high normal BUN/creatinine Ratio [place] ([facility]) Glomerular filtration rate/1.73 sq M.pre dicted among blacks [Volume Rate/Area] in Serum, Plasma or Blood by Creatinine-based formula (CKD-EPI) 67 mL/min/1.73m2 > or = 60 eGFR [place] ([facility]) Sodium [Moles/volume] in Serum or Plasma 131 mmol/L 135-146 Below low normal Sodium [place] ([facility]) Potassium [Moles/volume] in Serum or Plasma 4.7 mmol/L 3.5-5.3 Potassium [place] ([facility]) Chloride [Moles/volume] in Serum or Plasma 98 mmol/L 98-110 Chloride [place] ([facility]) Calcium [Mass/volume] in Serum or Plasma 8.9 mg/dL 8.6-10.3 Calcium [place] ([facility]) Protein [Mass/volume] in Serum or Plasma 6.2 g/dL 6.1-8.1 Protein, Total [place] ([facility]) Carbon dioxide, total [Moles/volume] in Serum or Plasma 28 mmol/L 20-32 Carbon Dioxide [place] ([facility]) Globulin [Mass/volume] in Serum by calculation 3.3 g/dL_(calc) 1.9- 3.7 Globulin [facility] ([facility]) Albumin/Globulin [Mass Ratio] in Serum or Plasma 0.9 (calc) 1.0-2.5 Below low normal Albumin/globulin Ratio [place] ([facility]) Albumin [Mass/volume] in Serum or Plasma 2.9 g/dL 3.6-5.1 Below low normal Albumin [facility] ([facility]) Alkaline phosphatase [Enzymatic activity/volume] in Serum or Plasma 98 U/L 35-144 Alkaline Phosphatase [facility] ([facility]) Bilirubin.total [Mass/volume] in Serum or Plasma 0.4 mg/dL 0.2-1 .2 Bilirubin, Total [place] ([facility]) Aspartate aminotransferase [Enzymatic activity/volume] in Serum or Plasma 10 U/L 10-35 Ast [place] ([facility]) Alanine aminotransferase [Enzymatic activity/volume] in Seru m or Plasma 8 U/L 9-46 Below low normal Alt [facility] ([facility]) ID Date Data Source [id number] 10/06/2020 12:00:00 AM EDT [facility] ([facility]) Name Value Range Interpretation Code Description Data Rosita rce(s) Supporting Document(s) Hemoglobin A1c/Hemoglobin.total in Blood >14.0 <5.7 Above high normal Hemoglobin a1C [facility] ([facility]) ID Date Data Source [id number] 10/06/2020 12:00:00 AM EDT [facility] ([facility]) Name Value Range Interpretation Code Description Data Rosita rce(s) Supporting Document(s) Glucose [Mass/volume] in Serum or Plasma 549 mg/dL 65-99 Above high normal Glucose [place] ([facility]) Urea nitrogen [Mass/volume] in Serum or Plasma 36 mg/dL 7-25 Above high normal Urea Nitrogen (BUN) [place] ([facility]) Creatinine [Mass/volume] in Serum or Plasma 1.26 mg/dL 0.70 -1.18 Above high normal Creatinine [place] ([facility]) Urea nitrogen/Creatinine [Mass Ratio] in Serum or Plasma 29 (ken[place] c) 6-22 Above high normal BUN/creatinine Ratio [place] ([facility]) Glomerular filtration rate/1.73 sq M.pre dicted among blacks [Volume Rate/Area] in Serum, Plasma or Blood by Creatinine-based formula (CKD-EPI) 67 mL/min/1.73m2 > or = 60 eGFR [place] ([facility]) Glomerular filtration rate/1.73 sq M.pre dicted among non-blacks [Volume Rate/Area] in Serum, Plasma or Blood by Creatinine-based formula (CKD-EPI) 57 mL/min/1.73m2 > or = 60 Below low normal eGFR Non-afr. Palestinian [place] ( [facility]) Sodium [Moles/volume] in Serum or Plasma 131 mmol/L 135-146 Below low normal Sodium [place] ([facility]) Potassium [Moles/volume] in Serum or Plasma 4.7 mmol/L 3.5-5.3 Potassium [place] ([facility]) Chloride [Moles/volume] in Serum or Plasma 98 mmol/L 98-110 Chloride [facility] ([facility]) Calcium [Mass/volume] in Serum or Plasma 8.9 mg/dL 8.6-10.3 Calcium [place] ([facility]) Protein [Mass/volume] in Serum or Plasma 6.2 g/dL 6.1-8.1 Protein, Total [place] ([facility]) Carbon dioxide, total [Moles/volume] in Serum or Plasma 28 mmol/L 20-32 Carbon Dioxide [place] ([facility]) Albumin [Mass/volume] in Serum or Plasma 2.9 g/dL 3.6-5.1 Below low normal Albumin [place] ([facility]) Globulin [Mass/volume] in Serum by calculation 3.3 g/dL_(calc) 1.9- 3.7 Globulin [place] ([facility]) Bilirubin.total [Mass/volume] in Serum or Plasma 0.4 mg/dL 0.2-1 .2 Bilirubin, Total [place] ([facility]) Albumin/Globulin [Mass Ratio] in Serum or Plasma 0.9 (calc) 1.0-2.5 Below low normal Albumin/globulin Ratio [place] ([facility]) Alanine aminotransferase [Enzymatic activity/volume] in Seru m or Plasma 8 U/L 9-46 Below low normal Alt [place] ([facility]) Alkaline phosphatase [Enzymatic activity/volume] in Serum or Plasma 98 U/L 35-144 Alkaline Phosphatase [place] ([facility]) Aspartate aminotransferase [Enzymatic activity/volume] in Serum or Plasma 10 U/L 10-35 Ast [place] ([facility]) ID Date Data Source [id number] 10/06/2020 12:00:00 AM EDT [facility]) Name Value Range Interpretation Code Description Data Rosita rce(s) Supporting Document(s) Hemoglobin A1c/Hemoglobin.total in Blood >14.0 <5.7 Above high normal Hemoglobin a1C [place] ([facility]) ID Date Data Source [id number] 10/06/2020 12:00:00 AM EDT [facility]) Name Value Range Interpretation Code Description Data Rosita rce(s) Supporting Document(s) Glucose [Mass/volume] in Serum or Plasma 549 mg/dL 65-99 Above high normal Glucose [place] ([facility]) Glomerular filtration rate/1.73 sq M.pre dicted among non-blacks [Volume Rate/Area] in Serum, Plasma or Blood by Creatinine-based formula (CKD-EPI) 57 mL/min/1.73m2 > or = 60 Below low normal eGFR Non-afr. Palestinian [place] ( [facility]) Creatinine [Mass/volume] in Serum or Plasma 1.26 mg/dL 0.70 -1.18 Above high normal Creatinine [place] ([facility]) Urea nitrogen [Mass/volume] in Serum or Plasma 36 mg/dL 7-25 Above high normal Urea Nitrogen (BUN) [place] ([facility]) Potassium [Moles/volume] in Serum or Plasma 4.7 mmol/L 3.5-5.3 Potassium [place] ([facility]) Glomerular filtration rate/1.73 sq M.pre dicted among blacks [Volume Rate/Area] in Serum, Plasma or Blood by Creatinine-based formula (CKD-EPI) 67 mL/min/1.73m2 > or = 60 eGFR [place] ([facility]) Sodium [Moles/volume] in Serum or Plasma 131 mmol/L 135-146 Below low normal Sodium [place] ([facility]) Urea nitrogen/Creatinine [Mass Ratio] in Serum or Plasma 29 (ken[place] c) 6-22 Above high normal BUN/creatinine Ratio [place] ([facility]) Calcium [Mass/volume] in Serum or Plasma 8.9 mg/dL 8.6-10.3 Calcium [place] ([facility]) Chloride [Moles/volume] in Serum or Plasma 98 mmol/L 98-110 Chloride [place] ([facility]) Carbon dioxide, total [Moles/volume] in Serum or Plasma 28 mmol/L 20-32 Carbon Dioxide [place] ([facility]) Protein [Mass/volume] in Serum or Plasma 6.2 g/dL 6.1-8.1 Protein, Total [place] ([facility]) Globulin [Mass/volume] in Serum by calculation 3.3 g/dL_(calc) 1.9- 3.7 Globulin [place] ([facility]) Albumin [Mass/volume] in Serum or Plasma 2.9 g/dL 3.6-5.1 Below low normal Albumin [place] ([facility]) Alkaline phosphatase [Enzymatic activity/volume] in Serum or Plasma 98 U/L 35-144 Alkaline Phosphatase [place] ([facility]) Bilirubin.total [Mass/volume] in Serum or Plasma 0.4 mg/dL 0.2-1 .2 Bilirubin, Total [place] ([facility]) Albumin/Globulin [Mass Ratio] in Serum or Plasma 0.9 (calc) 1.0-2.5 Below low normal Albumin/globulin Ratio [place] ([facility]) Aspartate aminotransferase [Enzymatic activity/volume] in Serum or Plasma 10 U/L 10-35 Ast [place] ([facility]) Alanine aminotransferase [Enzymatic activity/volume] in Seru m or Plasma 8 U/L 9-46 Below low normal Alt [facility] ([facility]) ID Date Data Source [id number] 10/06/2020 12:00:00 AM EDT [facility] ([facility]) Name Value Range Interpretation Code Description Data Rosita rce(s) Supporting Document(s) Hemoglobin A1c/Hemoglobin.total in Blood >14.0 <5.7 Above high normal Hemoglobin a1C [facility] ([facility]) ID Date Data Source [id number] 10/06/2020 12:00:00 AM EDT [facility] ([facility]) Name Value Range Interpretation Code Description Data Rosita rce(s) Supporting Document(s) Glucose [Mass/volume] in Serum or Plasma 549 mg/dL 65-99 Above high normal Glucose [place] ([facility]) Urea nitrogen [Mass/volume] in Serum or Plasma 36 mg/dL 7-25 Above high normal Urea Nitrogen (BUN) [place] ([facility]) Creatinine [Mass/volume] in Serum or Plasma 1.26 mg/dL 0.70 -1.18 Above high normal Creatinine [place] ([facility]) Glomerular filtration rate/1.73 sq M.pre dicted among non-blacks [Volume Rate/Area] in Serum, Plasma or Blood by Creatinine-based formula (CKD-EPI) 57 mL/min/1.73m2 > or = 60 Below low normal eGFR Non-afr. Palestinian [place] ( [facility]) Glomerular filtration rate/1.73 sq M.pre dicted among blacks [Volume Rate/Area] in Serum, Plasma or Blood by Creatinine-based formula (CKD-EPI) 67 mL/min/1.73m2 > or = 60 eGFR [place] ([facility]) Urea nitrogen/Creatinine [Mass Ratio] in Serum or Plasma 29 (ken[place] c) 6-22 Above high normal BUN/creatinine Ratio [place] ([facility]) Sodium [Moles/volume] in Serum or Plasma 131 mmol/L 135-146 Below low normal Sodium [place] ([facility]) Potassium [Moles/volume] in Serum or Plasma 4.7 mmol/L 3.5-5.3 Potassium [place] ([facility]) Chloride [Moles/volume] in Serum or Plasma 98 mmol/L 98-110 Chloride [place] ([facility]) Calcium [Mass/volume] in Serum or Plasma 8.9 mg/dL 8.6-10.3 Calcium [place] ([facility]) Carbon dioxide, total [Moles/volume] in Serum or Plasma 28 mmol/L 20-32 Carbon Dioxide [place] ([facility]) Albumin [Mass/volume] in Serum or Plasma 2.9 g/dL 3.6-5.1 Below low normal Albumin [place] ([facility]) Protein [Mass/volume] in Serum or Plasma 6.2 g/dL 6.1-8.1 Protein, Total [facility]) Globulin [Mass/volume] in Serum by calculation 3.3 g/dL_(calc) 1.9- 3.7 Globulin [facility] ([facility]) Alkaline phosphatase [Enzymatic activity/volume] in Serum or Plasma 98 U/L 35-144 Alkaline Phosphatase [place] ([facility]) Bilirubin.total [Mass/volume] in Serum or Plasma 0.4 mg/dL 0.2-1 .2 Bilirubin, Total [facility] ([facility]) Albumin/Globulin [Mass Ratio] in Serum or Plasma 0.9 (calc) 1.0-2.5 Below low normal Albumin/globulin Ratio [place] ([facility]) Aspartate aminotransferase [Enzymatic activity/volume] in Serum or Plasma 10 U/L 10-35 Ast [facility] ([facility]) Alanine aminotransferase [Enzymatic activity/volume] in Seru m or Plasma 8 U/L 9-46 Below low normal Alt [facility] ([facility]) ID Date Data Source [id number] 10/06/2020 12:00:00 AM EDT [facility]) Name Value Range Interpretation Code Description Data Rosita rce(s) Supporting Document(s) Hemoglobin A1c/Hemoglobin.total in Blood >14.0 <5.7 Above high normal Hemoglobin a1C [facility] ([facility]) ID Date Data Source [id number] 10/06/2020 12:00:00 AM EDT [facility] ([facility]) Name Value Range Interpretation Code Description Data Rosita rce(s) Supporting Document(s) Glucose [Mass/volume] in Serum or Plasma 549 mg/dL 65-99 Above high normal Glucose [facility] ([facility]) Urea nitrogen [Mass/volume] in Serum or Plasma 36 mg/dL 7-25 Above high normal Urea Nitrogen (BUN) [facility] ([facility]) Creatinine [Mass/volume] in Serum or Plasma 1.26 mg/dL 0.70 -1.18 Above high normal Creatinine [facility] ([facility]) Urea nitrogen/Creatinine [Mass Ratio] in Serum or Plasma 29 (ken[place] c) 6-22 Above high normal BUN/creatinine Ratio [place] ([facility]) Glomerular filtration rate/1.73 sq M.pre dicted among blacks [Volume Rate/Area] in Serum, Plasma or Blood by Creatinine-based formula (CKD-EPI) 67 mL/min/1.73m2 > or = 60 eGFR [place] ([facility]) Glomerular filtration rate/1.73 sq M.pre dicted among non-blacks [Volume Rate/Area] in Serum, Plasma or Blood by Creatinine-based formula (CKD-EPI) 57 mL/min/1.73m2 > or = 60 Below low normal eGFR Non-afr. Palestinian [place] ( [facility]) Chloride [Moles/volume] in Serum or Plasma 98 mmol/L 98-110 Chloride [place] ([facility]) Sodium [Moles/volume] in Serum or Plasma 131 mmol/L 135-146 Below low normal Sodium [place] ([facility]) Potassium [Moles/volume] in Serum or Plasma 4.7 mmol/L 3.5-5.3 Potassium [place] ([facility]) Protein [Mass/volume] in Serum or Plasma 6.2 g/dL 6.1-8.1 Protein, Total [place] ([facility]) Calcium [Mass/volume] in Serum or Plasma 8.9 mg/dL 8.6-10.3 Calcium [place] ([facility]) Carbon dioxide, total [Moles/volume] in Serum or Plasma 28 mmol/L 20-32 Carbon Dioxide [place] ([facility]) Albumin/Globulin [Mass Ratio] in Serum or Plasma 0.9 (calc) 1.0-2.5 Below low normal Albumin/globulin Ratio [place] ([facility]) Albumin [Mass/volume] in Serum or Plasma 2.9 g/dL 3.6-5.1 Below low normal Albumin [place] ([facility]) Globulin [Mass/volume] in Serum by calculation 3.3 g/dL_(calc) 1.9- 3.7 Globulin [place] ([facility]) Alkaline phosphatase [Enzymatic activity/volume] in Serum or Plasma 98 U/L 35-144 Alkaline Phosphatase [place] ([facility]) Aspartate aminotransferase [Enzymatic activity/volume] in Serum or Plasma 10 U/L 10-35 Ast [place] ([facility]) Bilirubin.total [Mass/volume] in Serum or Plasma 0.4 mg/dL 0.2-1 .2 Bilirubin, Total [place] ([facility]) Alanine aminotransferase [Enzymatic activity/volume] in Seru m or Plasma 8 U/L 9-46 Below low normal Alt [facility] ([facility]) ID Date Data Source [id number] 07/12/2020 11:00:00 AM EDT [place] ([facility]) Name Value Range Interpretation Code Description Data Rosita rce(s) Supporting Document(s) creatinine, urine 88.6 mg/dL Creatinine, Urine [place] ([facility]) malb urine siemens 2780.0 mg/L Malb Urine Sieme ns [place] ([facility]) alexander/creat ratio 3137.6 mcg/mg 0.0-30.0 Above high normal Alexander/creat Ratio [facility] ([facility]) ID Date Data Source [id number] 07/12/2020 11:00:00 AM EDT [place] ([facility]) Name Value Range Interpretation Code Description Data Rosita rce(s) Supporting Document(s) creatinine, urine 88.6 mg/dL Creatinine, Urine [place] ([facility]) malb urine siemens 2780.0 mg/L Malb Urine Sieme ns [place] ([facility]) alexander/creat ratio 3137.6 mcg/mg 0.0-30.0 Above high normal Alexander/creat Ratio [place] ([facility]) ID Date Data Source [id number] 07/12/2020 11:00:00 AM EDT [facility]) Name Value Range Interpretation Code Description Data Rosita rce(s) Supporting Document(s) creatinine, urine 88.6 mg/dL Creatinine, Urine [place] ([facility]) alexander/creat ratio 3137.6 mcg/mg 0.0-30.0 Above high normal Alexander/creat Ratio [place] ([facility]) malb urine si[place]ens 2780.0 mg/L Malb Urine Sieme ns [place] ([facility]) ID Date Data Source [id number] 07/12/2020 11:00:00 AM EDT [place] ([facility]) Name Value Range Interpretation Code Description Data Rosita rce(s) Supporting Document(s) creatinine, urine 88.6 mg/dL Creatinine, Urine [place] ([facility]) malb urine si[place]ens 2780.0 mg/L Malb Urine Sieme ns [place] ([facility]) alexander/creat ratio 3137.6 mcg/mg 0.0-30.0 Above high normal Alexander/creat Ratio [place] ([facility]) ID Date Data Source [id number] 07/12/2020 11:00:00 AM EDT [facility]) Name Value Range Interpretation Code Description Data Rosita rce(s) Supporting Document(s) alexander/creat ratio 3137.6 mcg/mg 0.0-30.0 Above high normal Alexander/creat Ratio [place] ([facility]) malb urine si[place]ens 2780.0 mg/L Malb Urine Sieme ns [place] ([facility]) creatinine, urine 88.6 mg/dL Creatinine, Urine [facility]) ID Date Data Source [id number] 07/12/2020 11:00:00 AM EDT [facility]) Name Value Range Interpretation Code Description Data Rosita rce(s) Supporting Document(s) creatinine, urine 88.6 mg/dL Creatinine, Urine [place] ([facility]) alexander/creat ratio 3137.6 mcg/mg 0.0-30.0 Above high normal Alexander/creat Ratio [place] ([facility]) malb urine [place] 2780.0 mg/L Malb Urine Sieme ns [place] ([facility]) ID Date Data Source [id number] 07/12/2020 11:00:00 AM EDT [place] ([facility]) Name Value Range Interpretation Code Description Data Rosita rce(s) Supporting Document(s) creatinine, urine 88.6 mg/dL Creatinine, Urine [place] ([facility]) malb urine [place] 2780.0 mg/L Malb Urine Sieme ns [place] ([facility]) alexander/creat ratio 3137.6 mcg/mg 0.0-30.0 Above high normal Alexander/creat Ratio [place] ([facility]) ID Date Data Source [id number] 07/12/2020 11:00:00 AM EDT [place] ([facility]) Name Value Range Interpretation Code Description Data Rosita rce(s) Supporting Document(s) creatinine, urine 88.6 mg/dL Creatinine, Urine [place] ([facility]) alexander/creat ratio 3137.6 mcg/mg 0.0-30.0 Above high normal Alexander/creat Ratio [place] ([facility]) malb urine [place] 2780.0 mg/L Malb Urine Sieme ns [place] ([facility]) ID Date Data Source [id number] 07/12/2020 11:00[facility] Name Value Range Interpretation Code Description Data Rosita rce(s) Supporting Document(s) malb urine [place] 2780.0 mg/L Malb Urine Sieme ns [place] ([facility]) creatinine, urine 88.6 mg/dL Creatinine, Urine [place] ([facility]) alexander/creat ratio 3137.6 mcg/mg 0.0-30.0 Above high normal Alexander/creat Ratio [place] ([facility]) ID Date Data Source [id number] 07/12/2020 11:00:00 AM EDT [place] ([facility]) Name Value Range Interpretation Code Description Data Rosita rce(s) Supporting Document(s) creatinine, urine 88.6 mg/dL Creatinine, Urine [place] ([facility]) alexander/creat ratio 3137.6 mcg/mg 0.0-30.0 Above high normal Alexander/creat Ratio [place] ([facility]) malb urine [place] 2780.0 mg/L Malb Urine Sieme ns [place] ([facility]) ID Date Data Source [id number] 07/12/2020 11:00[facility]00 [facility] Name Value Range Interpretation Code Description Data Rosita rce(s) Supporting Document(s) creatinine, urine 88.6 mg/dL Creatinine, Urine [place] ([facility]) alexander/creat ratio 3137.6 mcg/mg 0.0-30.0 Above high normal Alexander/creat Ratio [place] ([facility]) malb urine [place] 2780.0 mg/L Malb Urine Sieme ns [place] ([facility]) ID Date Data Source [id number] 07/12/2020 10:15:00 AM EDT [place] ([facility]) Name Value Range Interpretation Code Description Data Rosita rce(s) Supporting Document(s) thyroid stimulating hormone 1.550 uIU/mL 0.358-3.740 Thyroid Stimulating Hormone [place] ([facility]) ID Date Data Source [id number] 07/12/2020 10:15:00 AM EDT [place] ([facility]) Name Value Range Interpretation Code Description Data Rosita rce(s) Supporting Document(s) HDL cholesterol 33 mg/dL >40 Below low normal HDL Cholestero l [place] ([facility]) triglycerides level 229 mg/dL <150 Above high normal Triglycer ides Level [place] ([facility]) cholesterol level 204 mg/dL <200 Above high normal Cholesterol Level [place] ([facility]) Cholesterol in LDL [Mass/volume] in Serum or Plasma 125 mg/dL <100 Above high normal LDL Cholesterol [place] ([facility]) non-HDL-C 171 mg/dL Non-hdl-c [place] ([facility]) cholesterol risk ratio <5 Above high normal Choles terol Risk Ratio [place] ([facility]) ID Date Data Source [id number] 07/12/2020 10:15:00 AM EDT [facility]) Name Value Range Interpretation Code Description Data Rosita rce(s) Supporting Document(s) glucose, fasting 413 mg/dL 70-100 Above high normal Glucose, Fas ting [place] ([facility]) blood urea nitrogen 11 mg/dL 7-18 Blood Urea Nitro gen [place] ([facility]) potassium serum 4.6 mEq/L 3.5-5.1 Potassium Serum [place] ([facility]) sodium level 138 mEq/L 136-145 Sodium Level [place] ([facility]) glomerular filtration rate >42 Glomerula r Filtration Rate [place] ([facility]) creatinine for GFR 1.44 mg/dL 0.70-1.30 Above high normal Creatinine for GFR [place] ([facility]) carbon dioxide level 28 mEq/L 21-32 Carbon Dioxide Level [place] ([facility]) anion gap 5 mEq/L 8-16 Below low normal Anion Gap [place] ( [facility]) chloride level 105 mEq/L 98-107 Chloride Level [place] ([facility]) AST/SGOT 6 U/L 7-37 Below low normal AST/SGOT [place] ( [facility]) calcium level 8.3 mg/dL 8.8-10.2 Below low normal Calcium Level AT [facility]) ALT/SGPT 12 U/L 12-78 ALT/SGPT [place] ([facility]) alkaline phosphatase 104 U/L 45-117 Alkaline Phosph atase [place] ([facility]) albumin 2.5 gm/dL 3.2-5.2 Below low normal Albumin [place] ( [facility]) total protein 6.3 gm/dL 6.4-8.2 Below low normal Total Protein AT [facility]) bilirubin,total 0.3 mg/dL 0.2-1.0 Bilirubin,total [place] ([facility]) albumin/globulin ratio Albumin/globu cristi Ratio [place] ([facility]) ID Date Data Source [id number] 07/12/2020 10:15:00 AM EDT [place] ([facility]) Name Value Range Interpretation Code Description Data Rosita rce(s) Supporting Document(s) estimated average glucose 318 mg/dL 60-110 Above high norm al Estimated Average Glucose [place] ([facility]) Hemoglobin A1c/Hemoglobin.total in Blood 12.7 % Hemoglobin a1C [place] ([facility]) ID Date Data Source [id number] 07/12/2020 10:15:00 AM EDT [place] ([facility]) Name Value Range Interpretation Code Description Data Rosita rce(s) Supporting Document(s) thyroid stimulating hormone 1.550 uIU/mL 0.358-3.740 Thyroid Stimulating Hormone [place] ([facility]) ID Date Data Source [id number] 07/12/2020 10:15:00 AM EDT [place] ([facility]) Name Value Range Interpretation Code Description Data Rosita rce(s) Supporting Document(s) triglycerides level 229 mg/dL <150 Above high normal Triglycer ides Level [place] ([facility]) cholesterol level 204 mg/dL <200 Above high normal Cholesterol Level [place] ([facility]) HDL cholesterol 33 mg/dL >40 Below low normal HDL Cholestero l [place] ([facility]) Cholesterol in LDL [Mass/volume] in Serum or Plasma 125 mg/dL <100 Above high normal LDL Cholesterol [place] ([facility]) cholesterol risk ratio <5 Above high normal Choles terol Risk Ratio [place] ([facility]) non-HDL-C 171 mg/dL Non-hdl-c [place] ([facility]) ID Date Data Source [id number] 07/12/2020 10:15:00 AM EDT [place] ([facility]) Name Value Range Interpretation Code Description Data Rosita rce(s) Supporting Document(s) glomerular filtration rate >42 Glomerula r Filtration Rate [place] ([facility]) glucose, fasting 413 mg/dL 70-100 Above high normal Glucose, Fas ting [place] ([facility]) creatinine for GFR 1.44 mg/dL 0.70-1.30 Above high normal Creatinine for GFR [place] ([facility]) blood urea nitrogen 11 mg/dL 7-18 Blood Urea Nitro gen [place] ([facility]) potassium serum 4.6 mEq/L 3.5-5.1 Potassium Serum [place] ([facility]) chloride level 105 mEq/L 98-107 Chloride Level [place] ([facility]) sodium level 138 mEq/L 136-145 Sodium Level [place] ([facility]) anion gap 5 mEq/L 8-16 Below low normal Anion Gap [place] ( [facility]) AST/SGOT 6 U/L 7-37 Below low normal AST/SGOT [place] ( [facility]) carbon dioxide level 28 mEq/L 21-32 Carbon Dioxide Level [place] ([facility]) calcium level 8.3 mg/dL 8.8-10.2 Below low normal Calcium Level AT [facility]) total protein 6.3 gm/dL 6.4-8.2 Below low normal Total Protein AT [facility]) ALT/SGPT 12 U/L 12-78 ALT/SGPT [place] ([facility]) bilirubin,total 0.3 mg/dL 0.2-1.0 Bilirubin,total [place] ([facility]) alkaline phosphatase 104 U/L 45-117 Alkaline Phosph atase [place] ([facility]) albumin/globulin ratio Albumin/globu cristi Ratio [place] ([facility]) albumin 2.5 gm/dL 3.2-5.2 Below low normal Albumin [place] ( [facility]) ID Date Data Source [id number] 07/12/2020 10:15:00 AM EDT [place] ([facility]) Name Value Range Interpretation Code Description Data Rosita rce(s) Supporting Document(s) Hemoglobin A1c/Hemoglobin.total in Blood 12.7 % Hemoglobin a1C [place] ([facility]) estimated average glucose 318 mg/dL 60-110 Above high norm al Estimated Average Glucose [place] ([facility]) ID Date Data Source [id number] 07/12/2020 10:15:00 AM EDT [facility]) Name Value Range Interpretation Code Description Data Rosita rce(s) Supporting Document(s) thyroid stimulating hormone 1.550 uIU/mL 0.358-3.740 Thyroid Stimulating Hormone [place] ([facility]) ID Date Data Source [id number] 07/12/2020 10:15:00 AM EDT [place] ([facility]) Name Value Range Interpretation Code Description Data Rosita rce(s) Supporting Document(s) triglycerides level 229 mg/dL <150 Above high normal Triglycer ides Level [place] ([facility]) HDL cholesterol 33 mg/dL >40 Below low normal HDL Cholestero l [place] ([facility]) cholesterol level 204 mg/dL <200 Above high normal Cholesterol Level [place] ([facility]) Cholesterol in LDL [Mass/volume] in Serum or Plasma 125 mg/dL <100 Above high normal LDL Cholesterol [place] ([facility]) non-HDL-C 171 mg/dL Non-hdl-c [place] ([facility]) cholesterol risk ratio <5 Above high normal Choles terol Risk Ratio [place] ([facility]) ID Date Data Source [id number] 07/12/2020 10:15:00 AM EDT [facility]) Name Value Range Interpretation Code Description Data Rosita rce(s) Supporting Document(s) glucose, fasting 413 mg/dL 70-100 Above high normal Glucose, Fas ting [place] ([facility]) blood urea nitrogen 11 mg/dL 7-18 Blood Urea Nitro gen [place] ([facility]) creatinine for GFR 1.44 mg/dL 0.70-1.30 Above high normal Creatinine for GFR [place] ([facility]) glomerular filtration rate >42 Glomerula r Filtration Rate [place] ([facility]) sodium level 138 mEq/L 136-145 Sodium Level [place] ([facility]) potassium serum 4.6 mEq/L 3.5-5.1 Potassium Serum [place] ([facility]) carbon dioxide level 28 mEq/L 21-32 Carbon Dioxide Level [place] ([facility]) chloride level 105 mEq/L 98-107 Chloride Level [place] ([facility]) ALT/SGPT 12 U/L 12-78 ALT/SGPT [place] ([facility]) AST/SGOT 6 U/L 7-37 Below low normal AST/SGOT [place] ( [facility]) calcium level 8.3 mg/dL 8.8-10.2 Below low normal Calcium Level AT [facility] ([facility]) anion gap 5 mEq/L 8-16 Below low normal Anion Gap [place] ( [facility]) alkaline phosphatase 104 U/L 45-117 Alkaline Phosph atase [place] ([facility]) bilirubin,total 0.3 mg/dL 0.2-1.0 [facility] albumin 2.5 gm/dL 3.2-5.2 Below low normal Albumin [place] ( [facility]) total protein 6.3 gm/dL 6.4-8.2 Below low normal Total Protein AT [facility] ([facility]) albumin/globulin ratio Albumin/globu cristi Ratio [place] ([facility]) ID Date Data Source [id number] 07/12/2020 10:15:00 AM EDT [facility]) Name Value Range Interpretation Code Description Data Orsita rce(s) Supporting Document(s) Hemoglobin A1c/Hemoglobin.total in Blood 12.7 % Hemoglobin a1C [place] ([facility]) estimated average glucose 318 mg/dL 60-110 Above high norm al Estimated Average Glucose [facility]) ID Date Data Source [id number] 07/12/2020 10:15:00 AM EDT [place] ([facility]) Name Value Range Interpretation Code Description Data Rosita rce(s) Supporting Document(s) thyroid stimulating hormone 1.550 uIU/mL 0.358-3.740 [facility] ID Date Data Source [id number] 07/12/2020 10:15:00 AM EDT [facility]) Name Value Range Interpretation Code Description Data Rosita rce(s) Supporting Document(s) triglycerides level 229 mg/dL <150 Above high normal Triglycer ides Level [place] ([facility]) cholesterol level 204 mg/dL <200 Above high normal Cholesterol Level [place] ([facility]) non-HDL-C 171 mg/dL Non-hdl-c [place] ([facility]) Cholesterol in LDL [Mass/volume] in Serum or Plasma 125 mg/dL <100 Above high normal LDL Cholesterol [place] ([facility]) HDL cholesterol 33 mg/dL >40 Below low normal HDL Cholestero l [place] ([facility]) cholesterol risk ratio <5 Above high normal Choles terol Risk Ratio [place] ([facility]) ID Date Data Source [id number] 07/12/2020 10:15:00 AM EDT [place] ([facility]) Name Value Range Interpretation Code Description Data Rosita rce(s) Supporting Document(s) glucose, fasting 413 mg/dL 70-100 Above high normal Glucose, Fas ting [place] ([facility]) blood urea nitrogen 11 mg/dL 7-18 Blood Urea Nitro gen [place] ([facility]) sodium level 138 mEq/L 136-145 Sodium Level [place] ([facility]) creatinine for GFR 1.44 mg/dL 0.70-1.30 Above high normal Creatinine for GFR [place] ([facility]) glomerular filtration rate >42 Glomerula r Filtration Rate [place] ([facility]) potassium serum 4.6 mEq/L 3.5-5.1 Potassium Serum [place] ([facility]) carbon dioxide level 28 mEq/L 21-32 Carbon Dioxide Level [place] ([facility]) chloride level 105 mEq/L 98-107 Chloride Level [place] ([facility]) anion gap 5 mEq/L 8-16 Below low normal Anion Gap [place] ( [facility]) calcium level 8.3 mg/dL 8.8-10.2 Below low normal Calcium Level AT [facility]) AST/SGOT 6 U/L 7-37 Below low normal AST/SGOT [place] ( [facility]) bilirubin,total 0.3 mg/dL 0.2-1.0 Bilirubin,total [place] ([facility]) alkaline phosphatase 104 U/L 45-117 Alkaline Phosph atase [place] ([facility]) ALT/SGPT 12 U/L 12-78 ALT/SGPT [place] ([facility]) total protein 6.3 gm/dL 6.4-8.2 Below low normal Total Protein AT [place] ([facility]) albumin 2.5 gm/dL 3.2-5.2 Below low normal Albumin [place] ( [facility]) albumin/globulin ratio Albumin/globu cristi Ratio [place] ([facility]) ID Date Data Source [id number] 07/12/2020 10:15:00 AM EDT [place] ([facility]) Name Value Range Interpretation Code Description Data Rosita rce(s) Supporting Document(s) Hemoglobin A1c/Hemoglobin.total in Blood 12.7 % Hemoglobin a1C [place] ([facility]) estimated average glucose 318 mg/dL 60-110 Above high norm al Estimated Average Glucose [place] ([facility]) ID Date Data Source [id number] 07/12/2020 10:15:00 AM EDT [place] ([facility]) Name Value Range Interpretation Code Description Data Rosita rce(s) Supporting Document(s) thyroid stimulating hormone 1.550 uIU/mL 0.358-3.740 Thyroid Stimulating Hormone [place] ([facility]) ID Date Data Source [id number] 07/12/2020 10:15:00 AM EDT [facility]) Name Value Range Interpretation Code Description Data Rosita rce(s) Supporting Document(s) triglycerides level 229 mg/dL <150 Above high normal Triglycer ides Level [place] ([facility]) HDL cholesterol 33 mg/dL >40 Below low normal HDL Cholestero l [place] ([facility]) cholesterol level 204 mg/dL <200 Above high normal Cholesterol Level [place] ([facility]) cholesterol risk ratio <5 Above high normal Choles terol Risk Ratio [place] ([facility]) non-HDL-C 171 mg/dL Non-hdl-c [place] ([facility]) Cholesterol in LDL [Mass/volume] in Serum or Plasma 125 mg/dL <100 Above high normal LDL Cholesterol [place] ([facility]) ID Date Data Source [id number] 07/12/2020 10:15:00 AM EDT [place] ([facility]) Name Value Range Interpretation Code Description Data Rosita rce(s) Supporting Document(s) glucose, fasting 413 mg/dL 70-100 Above high normal Glucose, Fas ting [place] ([facility]) glomerular filtration rate >42 Glomerula r Filtration Rate [place] ([facility]) blood urea nitrogen 11 mg/dL 7-18 Blood Urea Nitro gen [place] ([facility]) creatinine for GFR 1.44 mg/dL 0.70-1.30 Above high normal Creatinine for GFR [place] ([facility]) potassium serum 4.6 mEq/L 3.5-5.1 Potassium Serum [facility] ([facility]) chloride level 105 mEq/L 98-107 Chloride Level [place] ([facility]) sodium level 138 mEq/L 136-145 Sodium Level [place] ([facility]) anion gap 5 mEq/L 8-16 Below low normal Anion Gap [place] ( [facility]) calcium level 8.3 mg/dL 8.8-10.2 Below low normal Calcium Level AT [facility] ([facility]) carbon dioxide level 28 mEq/L 21-32 Carbon Dioxide Level [place] ([facility]) AST/SGOT 6 U/L 7-37 Below low normal AST/SGOT [place] ( [facility]) ALT/SGPT 12 U/L 12-78 ALT/SGPT [place] ([facility]) alkaline phosphatase 104 U/L 45-117 Alkaline Phosph atase [place] ([facility]) bilirubin,total 0.3 mg/dL 0.2-1.0 Bilirubin,total [facility] [place] ([facility]) albumin 2.5 gm/dL 3.2-5.2 Below low normal Albumin [place] ( [facility]) total protein 6.3 gm/dL 6.4-8.2 Below low normal Total Protein AT [facility] ([facility]) albumin/globulin ratio Albumin/globu cristi Ratio [place] ([facility]) ID Date Data Source [id number] 07/12/2020 10:15:00 AM EDT [place] ([facility]) Name Value Range Interpretation Code Description Data Rosita rce(s) Supporting Document(s) Hemoglobin A1c/Hemoglobin.total in Blood 12.7 % Hemoglobin a1C [place] ([facility]) estimated average glucose 318 mg/dL 60-110 Above high norm al Estimated Average Glucose [place] ([facility]) ID Date Data Source [id number] 07/12/2020 10:15:00 AM EDT [place] ([facility]) Name Value Range Interpretation Code Description Data Rosita rce(s) Supporting Document(s) thyroid stimulating hormone 1.550 uIU/mL 0.358-3.740 Thyroid Stimulating Hormone [place] ([facility]) ID Date Data Source [id number] 07/12/2020 10:15:00 AM EDT [place] ([facility]) Name Value Range Interpretation Code Description Data Rosita rce(s) Supporting Document(s) triglycerides level 229 mg/dL <150 Above high normal Triglycer ides Level [place] ([facility]) cholesterol level 204 mg/dL <200 Above high normal Cholesterol Level [place] ([facility]) Cholesterol in LDL [Mass/volume] in Serum or Plasma 125 mg/dL <100 Above high normal LDL Cholesterol [place] ([facility]) HDL cholesterol 33 mg/dL >40 Below low normal HDL Cholestero l [place] ([facility]) non-HDL-C 171 mg/dL Non-hdl-c [place] ([facility]) cholesterol risk ratio <5 Above high normal Choles terol Risk Ratio [place] ([facility]) ID Date Data Source [id number] 07/12/2020 10:15:00 AM EDT [place] ([facility]) Name Value Range Interpretation Code Description Data Rosita rce(s) Supporting Document(s) glucose, fasting 413 mg/dL 70-100 Above high normal Glucose, Fas ting [place] ([facility]) glomerular filtration rate >42 Glomerula r Filtration Rate [place] ([facility]) creatinine for GFR 1.44 mg/dL 0.70-1.30 Above high normal Creatinine for GFR [place] ([facility]) blood urea nitrogen 11 mg/dL 7-18 Blood Urea Nitro gen [place] ([facility]) sodium level 138 mEq/L 136-145 Sodium Level [place] ([facility]) potassium serum 4.6 mEq/L 3.5-5.1 [facility] carbon dioxide level 28 mEq/L 21-32 Carbon Dioxide Level [place] ([facility]) anion gap 5 mEq/L 8-16 Below low normal Anion Gap [place] ( [facility]) chloride level 105 mEq/L 98-107 Chloride Level [place] ([facility]) ALT/SGPT 12 U/L 12-78 ALT/SGPT [place] ([facility]) AST/SGOT 6 U/L 7-37 Below low normal AST/SGOT [place] ( [facility]) calcium level 8.3 mg/dL 8.8-10.2 Below low normal Calcium Level AT [facility]) alkaline phosphatase 104 U/L 45-117 Alkaline Phosph atase [place] ([facility]) bilirubin,total 0.3 mg/dL 0.2-1.0 Bilirubin,total [place] ([facility]) total protein 6.3 gm/dL 6.4-8.2 Below low normal Total Protein AT [facility]) albumin 2.5 gm/dL 3.2-5.2 Below low normal Albumin [place] ( [facility]) albumin/globulin ratio Albumin/globu cristi Ratio [place] [facility]) ID Date Data Source [id number] 07/12/2020 10:15:00 AM EDT [place] ([facility]) Name Value Range Interpretation Code Description Data Rosita rce(s) Supporting Document(s) Hemoglobin A1c/Hemoglobin.total in Blood 12.7 % Hemoglobin a1C [place] ([facility]) estimated average glucose 318 mg/dL 60-110 Above high norm al Estimated Average Glucose [place] ([facility]) ID Date Data Source [id number] 07/12/2020 10:15:00 AM EDT [place] ([facility]) Name Value Range Interpretation Code Description Data Rosita rce(s) Supporting Document(s) thyroid stimulating hormone 1.550 uIU/mL 0.358-3.740 Thyroid Stimulating Hormone [place] ([facility]) ID Date Data Source [id number] 07/12/2020 10:15:00 AM EDT [place] ([facility]) Name Value Range Interpretation Code Description Data Rosita rce(s) Supporting Document(s) triglycerides level 229 mg/dL <150 Above high normal Triglycer ides Level [place] ([facility]) non-HDL-C 171 mg/dL Non-hdl-c [place] ([facility]) Cholesterol in LDL [Mass/volume] in Serum or Plasma 125 mg/dL <100 Above high normal LDL Cholesterol [place] ([facility]) cholesterol level 204 mg/dL <200 Above high normal Cholesterol Level [place] ([facility]) HDL cholesterol 33 mg/dL >40 Below low normal HDL Cholestero l [place] ([facility]) cholesterol risk ratio <5 Above high normal Choles terol Risk Ratio [place] ([facility]) ID Date Data Source [id number] 07/12/2020 10:15:00 [facility] Name Value Range Interpretation Code Description Data Rosita rce(s) Supporting Document(s) glucose, fasting 413 mg/dL 70-100 Above high normal Glucose, Fas ting [place] ([facility]) creatinine for GFR 1.44 mg/dL 0.70-1.30 Above high normal Creatinine for GFR [place] ([facility]) blood urea nitrogen 11 mg/dL 7-18 Blood Urea Nitro gen [place] ([facility]) sodium level 138 mEq/L 136-145 Sodium Level [place] ([facility]) glomerular filtration rate >42 Glomerula r Filtration Rate [place] ([facility]) anion gap 5 mEq/L 8-16 Below low normal Anion Gap [place] ( [facility]) carbon dioxide level 28 mEq/L 21-32 Carbon Dioxide Level [place] ([facility]) chloride level 105 mEq/L 98-107 Chloride Level [place] ([facility]) potassium serum 4.6 mEq/L 3.5-5.1 Potassium Serum [place] ([facility]) AST/SGOT 6 U/L 7-37 Below low normal AST/SGOT [place] ( [facility]) alkaline phosphatase 104 U/L 45-117 Alkaline Phosph atase [place] ([facility]) ALT/SGPT 12 U/L 12-78 ALT/SGPT [place] ([facility]) calcium level 8.3 mg/dL 8.8-10.2 Below low normal Calcium Level AT [facility] ([facility]) albumin/globulin ratio Albumin/globu cristi Ratio [place] ([facility]) total protein 6.3 gm/dL 6.4-8.2 Below low normal Total Protein AT [facility]) bilirubin,total 0.3 mg/dL 0.2-1.0 Bilirubin,total [place] ([facility]) albumin 2.5 gm/dL 3.2-5.2 Below low normal Albumin [place] ( [facility]) ID Date Data Source [id number] 07/12/2020 10:15:00 AM EDT [place] ([facility]) Name Value Range Interpretation Code Description Data Rosita rce(s) Supporting Document(s) Hemoglobin A1c/Hemoglobin.total in Blood 12.7 % Hemoglobin a1C [place] ([facility]) estimated average glucose 318 mg/dL 60-110 Above high norm al Estimated Average Glucose [place] ([facility]) ID Date Data Source [id number] 07/12/2020 10:15:00 AM EDT [place] ([facility]) Name Value Range Interpretation Code Description Data Rosita rce(s) Supporting Document(s) thyroid stimulating hormone 1.550 uIU/mL 0.358-3.740 Thyroid Stimulating Hormone [place] ([facility]) ID Date Data Source [id number] 07/12/2020 10:15:00 AM EDT [place] ([facility]) Name Value Range Interpretation Code Description Data Rosita rce(s) Supporting Document(s) cholesterol level 204 mg/dL <200 Above high normal Cholesterol Level [place] ([facility]) triglycerides level 229 mg/dL <150 Above high normal Triglycer ides Level [place] ([facility]) Cholesterol in LDL [Mass/volume] in Serum or Plasma 125 mg/dL <100 Above high normal LDL Cholesterol [place] ([facility]) non-HDL-C 171 mg/dL Non-hdl-c [place] ([facility]) HDL cholesterol 33 mg/dL >40 Below low normal HDL Cholestero l [place] ([facility]) cholesterol risk ratio <5 Above high normal Choles terol Risk Ratio [place] ([facility]) ID Date Data Source [id number] 07/12/2020 10:15:00 AM EDT [place] ([facility]) Name Value Range Interpretation Code Description Data Rosita rce(s) Supporting Document(s) blood urea nitrogen 11 mg/dL 7-18 Blood Urea Nitro gen [place] ([facility]) glucose, fasting 413 mg/dL 70-100 Above high normal Glucose, Fas ting [place] ([facility]) creatinine for GFR 1.44 mg/dL 0.70-1.30 Above high normal Creatinine for GFR [place] ([facility]) sodium level 138 mEq/L 136-145 Sodium Level [place] ([facility]) glomerular filtration rate >42 Glomerula r Filtration Rate [place] ([facility]) carbon dioxide level 28 mEq/L 21-32 Carbon Dioxide Level [place] ([facility]) chloride level 105 mEq/L 98-107 Chloride Level [place] ([facility]) potassium serum 4.6 mEq/L 3.5-5.1 Potassium Serum [place] ([facility]) anion gap 5 mEq/L 8-16 Below low normal Anion Gap [place] ( [facility]) calcium level 8.3 mg/dL 8.8-10.2 Below low normal Calcium Level AT [facility]) ALT/SGPT 12 U/L 12-78 ALT/SGPT [place] ([facility]) AST/SGOT 6 U/L 7-37 Below low normal AST/SGOT [place] ( [facility]) bilirubin,total 0.3 mg/dL 0.2-1.0 Bilirubin,total [place] ([facility]) total protein 6.3 gm/dL 6.4-8.2 Below low normal Total Protein AT [facility]) alkaline phosphatase 104 U/L 45-117 Alkaline Phosph atase [place] ([facility]) albumin 2.5 gm/dL 3.2-5.2 Below low normal Albumin [place] ( [facility]) albumin/globulin ratio Albumin/globu cristi Ratio [place] ([facility]) ID Date Data Source [id number] 07/12/2020 10:15:00 AM EDT [place] ([facility]) Name Value Range Interpretation Code Description Data Rosita rce(s) Supporting Document(s) Hemoglobin A1c/Hemoglobin.total in Blood 12.7 % Hemoglobin a1C [place] ([facility]) estimated average glucose 318 mg/dL 60-110 Above high norm al Estimated Average Glucose [place] ([facility]) ID Date Data Source [id number] 07/12/2020 10:15:00 AM EDT [place] ([facility]) Name Value Range Interpretation Code Description Data Rosita rce(s) Supporting Document(s) thyroid stimulating hormone 1.550 uIU/mL 0.358-3.740 Thyroid Stimulating Hormone [place] ([facility]) ID Date Data Source [id number] 07/12/2020 10:15:00 AM EDT [place] ([facility]) Name Value Range Interpretation Code Description Data Rosita rce(s) Supporting Document(s) triglycerides level 229 mg/dL <150 Above high normal Triglycer ides Level [place] ([facility]) cholesterol level 204 mg/dL <200 Above high normal Cholesterol Level [place] ([facility]) cholesterol risk ratio <5 Above high normal Choles terol Risk Ratio [place] ([facility]) Cholesterol in LDL [Mass/volume] in Serum or Plasma 125 mg/dL <100 Above high normal LDL Cholesterol [place] ([facility]) non-HDL-C 171 mg/dL Non-hdl-c [place] ([facility]) HDL cholesterol 33 mg/dL >40 Below low normal HDL Cholestero l [place] ([facility]) ID Date Data Source [id number] 07/12/2020 10:15:00 AM EDT [place] ([facility]) Name Value Range Interpretation Code Description Data Rosita rce(s) Supporting Document(s) creatinine for GFR 1.44 mg/dL 0.70-1.30 Above high normal Creatinine for GFR [place] ([facility]) glucose, fasting 413 mg/dL 70-100 Above high normal Glucose, Fas ting [place] ([facility]) blood urea nitrogen 11 mg/dL 7-18 Blood Urea Nitro gen [place] ([facility]) sodium level 138 mEq/L 136-145 Sodium Level [place] ([facility]) potassium serum 4.6 mEq/L 3.5-5.1 Potassium Serum [place] ([facility]) glomerular filtration rate >42 Glomerula r Filtration Rate [place] ([facility]) chloride level 105 mEq/L 98-107 Chloride Level [place] ([facility]) anion gap 5 mEq/L 8-16 Below low normal Anion Gap [place] ( [facility]) carbon dioxide level 28 mEq/L 21-32 Carbon Dioxide Level [place] ([facility]) AST/SGOT 6 U/L 7-37 Below low normal AST/SGOT [place] ( [facility]) calcium level 8.3 mg/dL 8.8-10.2 Below low normal Calcium Level AT [facility]) ALT/SGPT 12 U/L 12-78 ALT/SGPT [place] ([facility]) bilirubin,total 0.3 mg/dL 0.2-1.0 [facility] total protein 6.3 gm/dL 6.4-8.2 Below low normal Total Protein AT [facility]) alkaline phosphatase 104 U/L 45-117 Alkaline Phosph atase [place] ([facility]) albumin 2.5 gm/dL 3.2-5.2 Below low normal Albumin [place] ( [facility]) albumin/globulin ratio Albumin/globu cristi Ratio [place] ([facility]) ID Date Data Source [id number] 07/12/2020 10:15:00 AM EDT [place] ([facility]) Name Value Range Interpretation Code Description Data Rosita rce(s) Supporting Document(s) estimated average glucose 318 mg/dL 60-110 Above high norm al Estimated Average Glucose [facility]) Hemoglobin A1c/Hemoglobin.total in Blood 12.7 % Hemoglobin a1C [place] ([facility]) ID Date Data Source [id number] 07/12/2020 10:15:00 AM EDT [facility]) Name Value Range Interpretation Code Description Data Rosita rce(s) Supporting Document(s) thyroid stimulating hormone 1.550 uIU/mL 0.358-3.740 [facility] ID Date Data Source [id number] 07/12/2020 10:15:00 AM EDT [place] ([facility]) Name Value Range Interpretation Code Description Data Rosita rce(s) Supporting Document(s) HDL cholesterol 33 mg/dL >40 Below low normal HDL Cholestero l [place] ([facility]) triglycerides level 229 mg/dL <150 Above high normal Triglycer ides Level [place] ([facility]) Cholesterol in LDL [Mass/volume] in Serum or Plasma 125 mg/dL <100 Above high normal LDL Cholesterol [place] ([facility]) cholesterol level 204 mg/dL <200 Above high normal Cholesterol Level [place] ([facility]) cholesterol risk ratio <5 Above high normal Choles terol Risk Ratio [place] ([facility]) non-HDL-C 171 mg/dL Non-hdl-c [place] ([facility]) ID Date Data Source [id number] 07/12/2020 10:15:00 AM EDT [place] ([facility]) Name Value Range Interpretation Code Description Data Ros[place] rce(s) Supporting Document(s) glucose, fasting 413 mg/dL 70-100 Above high normal Glucose, Fas ting [place] ([facility]) blood urea nitrogen 11 mg/dL 7-18 Blood Urea Nitro gen [place] ([facility]) creatinine for GFR 1.44 mg/dL 0.70-1.30 Above high normal Creatinine for GFR [place] ([facility]) glomerular filtration rate >42 Glomerula r Filtration Rate [place] ([facility]) sodium level 138 mEq/L 136-145 Sodium Level [place] ([facility]) carbon dioxide level 28 mEq/L 21-32 Carbon Dioxide Level [place] ([facility]) chloride level 105 mEq/L 98-107 Chloride Level [place] ([facility]) potassium serum 4.6 mEq/L 3.5-5.1 Potassium Serum [place] ([facility]) anion gap 5 mEq/L 8-16 Below low normal Anion Gap [place] ( [facility]) AST/SGOT 6 U/L 7-37 Below low normal AST/SGOT [place] ( [facility]) calcium level 8.3 mg/dL 8.8-10.2 Below low normal Calcium Level AT [facility] ([facility]) ALT/SGPT 12 U/L 12-78 ALT/SGPT [place] ([facility]) bilirubin,total 0.3 mg/dL 0.2-1.0 [facility] albumin 2.5 gm/dL 3.2-5.2 Below low normal Albumin [place] ( [facility]) total protein 6.3 gm/dL 6.4-8.2 Below low normal Total Protein AT [facility] ([facility]) alkaline phosphatase 104 U/L 45-117 Alkaline Phosph atase [place] ([facility]) albumin/globulin ratio Albumin/globu cristi Ratio [place] ([facility]) ID Date Data Source [id number] 07/12/2020 10:15:00 AM EDT [facility]) Name Value Range Interpretation Code Description Data Rosita rce(s) Supporting Document(s) Hemoglobin A1c/Hemoglobin.total in Blood 12.7 % Hemoglobin a1C [place] ([facility]) estimated average glucose 318 mg/dL 60-110 Above high norm al Estimated Average Glucose [facility]) ID Date Data Source [id number] 07/12/2020 10:15:00 AM EDT [facility]) Name Value Range Interpretation Code Description Data Ros[place] rce(s) Supporting Document(s) thyroid stimulating hormone 1.550 uIU/mL 0.358-3.740 Thyroid Stimulating Hormone [place] ([facility]) ID Date Data Source [id number] 07/12/2020 10:15:00 AM EDT [facility]) Name Value Range Interpretation Code Description Data Ros[place] rce(s) Supporting Document(s) triglycerides level 229 mg/dL <150 Above high normal Triglycer ides Level [place] ([facility]) cholesterol level 204 mg/dL <200 Above high normal Cholesterol Level [place] ([facility]) non-HDL-C 171 mg/dL Non-hdl-c [place] ([facility]) HDL cholesterol 33 mg/dL >40 Below low normal HDL Cholestero l [place] ([facility]) Cholesterol in LDL [Mass/volume] in Serum or Plasma 125 mg/dL <100 Above high normal LDL Cholesterol [place] ([facility]) cholesterol risk ratio <5 Above high normal Choles terol Risk Ratio [place] ([facility]) ID Date Data Source [id number] 07/12/2020 10:15:00 AM EDT [place] ([facility]) Name Value Range Interpretation Code Description Data Ros[place] rce(s) Supporting Document(s) glucose, fasting 413 mg/dL 70-100 Above high normal Glucose, Fas ting [place] ([facility]) blood urea nitrogen 11 mg/dL 7-18 Blood Urea Nitro gen [place] ([facility]) creatinine for GFR 1.44 mg/dL 0.70-1.30 Above high normal Creatinine for GFR [place] ([facility]) glomerular filtration rate >42 Glomerula r Filtration Rate [place] ([facility]) sodium level 138 mEq/L 136-145 Sodium Level [place] ([facility]) potassium serum 4.6 mEq/L 3.5-5.1 Potassium Serum [place] ([facility]) chloride level 105 mEq/L 98-107 Chloride Level [place] ([facility]) carbon dioxide level 28 mEq/L 21-32 Carbon Dioxide Level [place] ([facility]) anion gap 5 mEq/L 8-16 Below low normal Anion Gap [place] ( [facility]) calcium level 8.3 mg/dL 8.8-10.2 Below low normal Calcium Level AT [facility]) ALT/SGPT 12 U/L 12-78 ALT/SGPT [place] ([facility]) AST/SGOT 6 U/L 7-37 Below low normal AST/SGOT [place] ( [facility]) albumin 2.5 gm/dL 3.2-5.2 Below low normal Albumin [place] ( [facility]) total protein 6.3 gm/dL 6.4-8.2 Below low normal Total Protein AT [facility]) bilirubin,total 0.3 mg/dL 0.2-1.0 Bilirubin,total [place] ([facility]) alkaline phosphatase 104 U/L 45-117 Alkaline Phosph atase [place] ([facility]) albumin/globulin ratio Albumin/globu cristi Ratio [place] ([facility]) ID Date Data Source [id number] 07/12/2020 10:15:00 AM EDT [place] ([facility]) Name Value Range Interpretation Code Description Data Ros[place] rce(s) Supporting Document(s) estimated average glucose 318 mg/dL 60-110 Above high norm al Estimated Average Glucose [place] ([facility]) Hemoglobin A1c/Hemoglobin.total in Blood 12.7 % Hemoglobin a1C [place] ([facility]) ID Date Data Source [id number] 02/27/2020 04:04:00 PM EST [place] ([facility]) Name Value Range Interpretation Code Description Data Ros[place] rce(s) Supporting Document(s) blood urea nitrogen 20 mg/dL 7-18 Above high normal Blood Ure a Nitrogen [place] ([facility]) glomerular filtration rate >42 Glomerula r Filtration Rate [place] ([facility]) glucose, fasting 287 mg/dL 70-100 Above high normal Glucose, Fas ting [place] ([facility]) creatinine for GFR 1.34 mg/dL 0.70-1.30 Above high normal Creatinine for GFR [place] ([facility]) potassium serum 4.5 mEq/L 3.5-5.1 Potassium Serum [place] [place] ([facility]) sodium level 141 mEq/L 136-145 Sodium Level [place] ([facility]) carbon dioxide level 27 mEq/L 21-32 Carbon Dioxide Level [place] ([facility]) anion gap 4 mEq/L 8-16 Below low normal Anion Gap [place] ( [facility]) chloride level 110 mEq/L 98-107 Above high normal Chloride Level [place] ([facility]) calcium level 8.4 mg/dL 8.8-10.2 Below low normal Calcium Level AT [facility] ([facility]) ID Date Data Source [id number] 02/27/2020 04:04:00 PM EST [place] ([facility]) Name Value Range Interpretation Code Description Data Rosita rce(s) Supporting Document(s) glucose, fasting 287 mg/dL 70-100 Above high normal Glucose, Fas ting [place] ([facility]) glomerular filtration rate >42 Glomerula r Filtration Rate [place] ([facility]) blood urea nitrogen 20 mg/dL 7-18 Above high normal Blood Ure a Nitrogen [place] ([facility]) creatinine for GFR 1.34 mg/dL 0.70-1.30 Above high normal Creatinine for GFR [place] ([facility]) carbon dioxide level 27 mEq/L 21-32 Carbon Dioxide Level [facility]) chloride level 110 mEq/L 98-107 Above high normal Chloride Level [place] ([facility]) sodium level 141 mEq/L 136-145 Sodium Level [place] ([facility]) anion gap 4 mEq/L 8-16 Below low normal Anion Gap [place] ( [facility]) potassium serum 4.5 mEq/L 3.5-5.1 Potassium Serum ATH NA ([facility]) calcium level 8.4 mg/dL 8.8-10.2 Below low normal Calcium Level AT [facility]) ID Date Data Source [id number] 02/27/2020 04:04:00 PM EST [place] ([facility]) Name Value Range Interpretation Code Description Data Rosita rce(s) Supporting Document(s) glucose, fasting 287 mg/dL 70-100 Above high normal Glucose, Fas ting [place] ([facility]) blood urea nitrogen 20 mg/dL 7-18 Above high normal Blood Ure a Nitrogen [place] ([facility]) creatinine for GFR 1.34 mg/dL 0.70-1.30 Above high normal Creatinine for GFR [place] ([facility]) potassium serum 4.5 mEq/L 3.5-5.1 Potassium Serum ATHE NA ([facility]) sodium level 141 mEq/L 136-145 Sodium Level [place] ([facility]) glomerular filtration rate >42 Glomerula r Filtration Rate [place] ([facility]) chloride level 110 mEq/L 98-107 Above high normal Chloride Level [place] ([facility]) calcium level 8.4 mg/dL 8.8-10.2 Below low normal Calcium Level AT [facility] ([facility]) anion gap 4 mEq/L 8-16 Below low normal Anion Gap [place] ( [facility]) carbon dioxide level 27 mEq/L 21-32 Carbon Dioxide Level [place] ([facility]) ID Date Data Source [id number] 02/27/2020 04:04:00 PM EST [place] ([facility]) Name Value Range Interpretation Code Description Data Rosita rce(s) Supporting Document(s) glucose, fasting 287 mg/dL 70-100 Above high normal Glucose, Fas ting [place] ([facility]) sodium level 141 mEq/L 136-145 Sodium Level [place] ([facility]) blood urea nitrogen 20 mg/dL 7-18 Above high normal Blood Ure a Nitrogen [place] ([facility]) creatinine for GFR 1.34 mg/dL 0.70-1.30 Above high normal Creatinine for GFR [place] ([facility]) potassium serum 4.5 mEq/L 3.5-5.1 Potassium Serum ATHE NA ([facility]) glomerular filtration rate >42 Glomerula r Filtration Rate [place] ([facility]) chloride level 110 mEq/L 98-107 Above high normal Chloride Level [place] ([facility]) calcium level 8.4 mg/dL 8.8-10.2 Below low normal Calcium Level AT [facility] ([facility]) anion gap 4 mEq/L 8-16 Below low normal Anion Gap [place] ( [facility]) carbon dioxide level 27 mEq/L 21-32 Carbon Dioxide Level [place] ([facility]) ID Date Data Source [id number] 02/27/2020 04:04:00 PM EST [place] ([facility]) Name Value Range Interpretation Code Description Data Rosita rce(s) Supporting Document(s) glucose, fasting 287 mg/dL 70-100 Above high normal Glucose, Fas ting [place] ([facility]) blood urea nitrogen 20 mg/dL 7-18 Above high normal Blood Ure a Nitrogen [place] ([facility]) potassium serum 4.5 mEq/L 3.5-5.1 Potassium Serum ATHE NA ([facility]) sodium level 141 mEq/L 136-145 Sodium Level [place] ([facility]) glomerular filtration rate >42 Glomerula r Filtration Rate [place] ([facility]) creatinine for GFR 1.34 mg/dL 0.70-1.30 Above high normal Creatinine for GFR [place] ([facility]) chloride level 110 mEq/L 98-107 Above high normal Chloride Level [place] ([facility]) calcium level 8.4 mg/dL 8.8-10.2 Below low normal Calcium Level AT [facility]) anion gap 4 mEq/L 8-16 Below low normal Anion Gap [place] ( [facility]) carbon dioxide level 27 mEq/L 21-32 Carbon Dioxide Level [place] ([facility]) ID Date Data Source [id number] 02/27/2020 04:04:00 PM EST [place] ([facility]) Name Value Range Interpretation Code Description Data Rosita rce(s) Supporting Document(s) glucose, fasting 287 mg/dL 70-100 Above high normal Glucose, Fas ting [place] ([facility]) creatinine for GFR 1.34 mg/dL 0.70-1.30 Above high normal Creatinine for GFR [place] ([facility]) glomerular filtration rate >42 Glomerula r Filtration Rate [place] ([facility]) blood urea nitrogen 20 mg/dL 7-18 Above high normal Blood Ure a Nitrogen [place] ([facility]) potassium serum 4.5 mEq/L 3.5-5.1 Potassium Serum ATHE NA ([facility]) chloride level 110 mEq/L 98-107 Above high normal Chloride Level [place] ([facility]) sodium level 141 mEq/L 136-145 Sodium Level [place] ([facility]) anion gap 4 mEq/L 8-16 Below low normal Anion Gap [place] ( [facility]) carbon dioxide level 27 mEq/L 21-32 Carbon Dioxide Level [place] ([facility]) calcium level 8.4 mg/dL 8.8-10.2 Below low normal Calcium Level AT [facility]) ID Date Data Source [id number] 02/27/2020 04:04:00 PM EST [place] ([facility]) Name Value Range Interpretation Code Description Data Rosita rce(s) Supporting Document(s) glucose, fasting 287 mg/dL 70-100 Above high normal Glucose, Fas ting [place] ([facility]) creatinine for GFR 1.34 mg/dL 0.70-1.30 Above high normal Creatinine for GFR [place] ([facility]) glomerular filtration rate >42 Glomerula r Filtration Rate [place] ([facility]) sodium level 141 mEq/L 136-145 Sodium Level [place] ([facility]) blood urea nitrogen 20 mg/dL 7-18 Above high normal Blood Ure a Nitrogen [place] ([facility]) anion gap 4 mEq/L 8-16 Below low normal Anion Gap [place] ( [facility]) potassium serum 4.5 mEq/L 3.5-5.1 Potassium Serum [place] NA ([facility]) chloride level 110 mEq/L 98-107 Above high normal Chloride Level [place] ([facility]) carbon dioxide level 27 mEq/L 21-32 Carbon Dioxide Level [place] ([facility]) calcium level 8.4 mg/dL 8.8-10.2 Below low normal Calcium Level AT [facility]) ID Date Data Source [id number] 02/27/2020 04:04:00 PM EST [place] ([facility]) Name Value Range Interpretation Code Description Data Rosita rce(s) Supporting Document(s) blood urea nitrogen 20 mg/dL 7-18 Above high normal Blood Ure a Nitrogen [place] ([facility]) glucose, fasting 287 mg/dL 70-100 Above high normal Glucose, Fas ting [place] ([facility]) creatinine for GFR 1.34 mg/dL 0.70-1.30 Above high normal Creatinine for GFR [place] ([facility]) glomerular filtration rate >42 Glomerula r Filtration Rate [place] ([facility]) sodium level 141 mEq/L 136-145 Sodium Level [place] ([facility]) potassium serum 4.5 mEq/L 3.5-5.1 Potassium Serum ATHE NA ([facility]) anion gap 4 mEq/L 8-16 Below low normal Anion Gap [place] ( [facility]) calcium level 8.4 mg/dL 8.8-10.2 Below low normal Calcium Level AT [place] ([facility]) chloride level 110 mEq/L 98-107 Above high normal Chloride Level [place] ([facility]) carbon dioxide level 27 mEq/L 21-32 Carbon Dioxide Level [place] ([facility]) ID Date Data Source [id number] 02/27/2020 04:04:00 PM EST [place] ([facility]) Name Value Range Interpretation Code Description Data Rosita rce(s) Supporting Document(s) blood urea nitrogen 20 mg/dL 7-18 Above high normal Blood Ure a Nitrogen [place] ([facility]) glucose, fasting 287 mg/dL 70-100 Above high normal Glucose, Fas ting [place] ([facility]) creatinine for GFR 1.34 mg/dL 0.70-1.30 Above high normal Creatinine for GFR [place] ([facility]) potassium serum 4.5 mEq/L 3.5-5.1 Potassium Serum [place] NA ([facility]) sodium level 141 mEq/L 136-145 Sodium Level [place] ([facility]) glomerular filtration rate >42 Glomerula r Filtration Rate [place] ([facility]) chloride level 110 mEq/L 98-107 Above high normal Chloride Level [place] ([facility]) anion gap 4 mEq/L 8-16 Below low normal Anion Gap [place] ( [facility]) carbon dioxide level 27 mEq/L 21-32 Carbon Dioxide Level [place] ([facility]) calcium level 8.4 mg/dL 8.8-10.2 Below low normal Calcium Level AT [facility] ([facility]) ID Date Data Source [id number] 02/27/2020 04:04:00 PM EST [place] ([facility]) Name Value Range Interpretation Code Description Data Rosita rce(s) Supporting Document(s) glucose, fasting 287 mg/dL 70-100 Above high normal Glucose, Fas ting [place] ([facility]) blood urea nitrogen 20 mg/dL 7-18 Above high normal Blood Ure a Nitrogen [place] ([facility]) sodium level 141 mEq/L 136-145 Sodium Level [place] ([facility]) glomerular filtration rate >42 Glomerula r Filtration Rate [place] ([facility]) creatinine for GFR 1.34 mg/dL 0.70-1.30 Above high normal Creatinine for GFR [place] ([facility]) potassium serum 4.5 mEq/L 3.5-5.1 Potassium Serum ATH NA ([facility]) chloride level 110 mEq/L 98-107 Above high normal Chloride Level [place] ([facility]) calcium level 8.4 mg/dL 8.8-10.2 Below low normal Calcium Level AT [facility] ([facility]) anion gap 4 mEq/L 8-16 Below low normal Anion Gap [place] ( [facility]) carbon dioxide level 27 mEq/L 21-32 Carbon Dioxide Level [place] ([facility]) ID Date Data Source [id number] 02/27/2020 04:04:00 PM EST [place] ([facility]) Name Value Range Interpretation Code Description Data Rosita rce(s) Supporting Document(s) blood urea nitrogen 20 mg/dL 7-18 Above high normal Blood Ure a Nitrogen [place] ([facility]) glucose, fasting 287 mg/dL 70-100 Above high normal Glucose, Fas ting [place] ([facility]) creatinine for GFR 1.34 mg/dL 0.70-1.30 Above high normal Creatinine for GFR [place] ([facility]) sodium level 141 mEq/L 136-145 Sodium Level [place] ([facility]) potassium serum 4.5 mEq/L 3.5-5.1 Potassium Serum ATHE NA ([facility]) glomerular filtration rate >42 Glomerula r Filtration Rate [place] ([facility]) chloride level 110 mEq/L 98-107 Above high normal Chloride Level [place] ([facility]) anion gap 4 mEq/L 8-16 Below low normal Anion Gap [place] ( [facility]) carbon dioxide level 27 mEq/L 21-32 Carbon Dioxide Level [place] ([facility]) calcium level 8.4 mg/dL 8.8-10.2 Below low normal Calcium Level AT [facility] ([facility]) ID Date Data Source [id number] 02/27/2020 04:04:00 PM EST [place] ([facility]) Name Value Range Interpretation Code Description Data Rosita rce(s) Supporting Document(s) creatinine for GFR 1.34 mg/dL 0.70-1.30 Above high normal Creatinine for GFR [place] ([facility]) glomerular filtration rate >42 Glomerula r Filtration Rate [place] ([facility]) glucose, fasting 287 mg/dL 70-100 Above high normal Glucose, Fas ting [place] ([facility]) blood urea nitrogen 20 mg/dL 7-18 Above high normal Blood Ure a Nitrogen [place] ([facility]) chloride level 110 mEq/L 98-107 Above high normal Chloride Level [place] ([facility]) anion gap 4 mEq/L 8-16 Below low normal Anion Gap [place] ( [facility]) carbon dioxide level 27 mEq/L 21-32 Carbon Dioxide Level [place] ([facility]) sodium level 141 mEq/L 136-145 Sodium Level [place] ([facility]) potassium serum 4.5 mEq/L 3.5-5.1 Potassium Serum [place] ([facility]) calcium level 8.4 mg/dL 8.8-10.2 Below low normal Calcium Level AT [facility]) ID Date Data Source [id number] 02/27/2020 04:04:00 PM EST [place] ([facility]) Name Value Range Interpretation Code Description Data Rosita rce(s) Supporting Document(s) blood urea nitrogen 20 mg/dL 7-18 Above high normal Blood Ure a Nitrogen [place] ([facility]) glucose, fasting 287 mg/dL 70-100 Above high normal Glucose, Fas ting [place] ([facility]) potassium serum 4.5 mEq/L 3.5-5.1 Potassium Serum ATH NA ([facility]) sodium level 141 mEq/L 136-145 Sodium Level [place] ([facility]) glomerular filtration rate >42 Glomerula r Filtration Rate [place] ([facility]) creatinine for GFR 1.34 mg/dL 0.70-1.30 Above high normal Creatinine for GFR [place] ([facility]) carbon dioxide level 27 mEq/L 21-32 Carbon Dioxide Level [place] ([facility]) anion gap 4 mEq/L 8-16 Below low normal Anion Gap [place] ( [facility]) chloride level 110 mEq/L 98-107 Above high normal Chloride Level [place] ([facility]) calcium level 8.4 mg/dL 8.8-10.2 Below low normal Calcium Level AT [facility]) ID Date Data Source [id number] 01/16/2020 02:27:25 PM EDT [facility] Measurements & CalculationsHeight: 69 inches (5 ft. 9 in.) 175.26 cm Weight: 203 pounds 2 oz. 92.33 kg Body Mass Index (BMI): 30.11BMI Interpretation: ObeseBody Surface Area (BSA): 2.08Weight Management Education Done (Nutrition/Physical Activity)Vital SignsTemperature: 97.6F tympanic Pulse Rate: 61 beats/minuteRespiratory Rate: 16 respirations/minuteBlood Pressure: 203/79 left arm sitting automaticO2 Saturation: 99% room airVital Signs performed by: Ramana Mckeon LPN, January 16, 2020 2:33 PMMultiple Vital SignsVitals #2BP: 194/78 Initial Intake Information From: patientRoom #: 15Infectious Disease / Travel ScreeningRecent travel for you or any close contacts? NoHave you had any close contact with anyone diagnosed with or under investigation for COVID-19 (coronavirus)? NoFever? NoRespiratory symptoms: cough, cold, congestion, shortness of breath, difficulty breathing? NoLoss of smell? NoLoss of taste? NoSmoking, Tobacco, Vaping or Smoke Exposure StatusSmoke Status: former smokerTobacco Use: NoDo you vape? NoPassive Smoke Exposure: NoHealthcare HistorySince your last office visit...Have you been admitted to the hospital? NoHave you been to an emergency room (ER) or urgent care clinic? NoHave you seen another healthcare provider? Yes - Dr. Syed Have you seen a dentist? NoIntake performed by: Ramana Mckeon LPN, January 16, 2020 2:29 PMRate Your HealthIn general, would you say your health is? FairPain AssessmentAre you currently having any pain which... You would like your provider to address? No Affects your activity level? NoDepression Screening - PHQ-2Over the last two weeks, have you... Had little interest or pleasure in doing things? Not at all Been feeling down, depressed, or hopeless? Not at all PHQ-2 Score: 0Anxiety Screening - FRANCISCA-2Over the last two weeks, have you been... Feeling nervous, anxious, or on edge? Not at all Unable to stop or control worrying? Not at all FRANCISCA-2 Score: 0Food InsecurityWithin the past year...Did you worry whether your food would run out before you got money to buy more? Never trueWas there a time when the food you bought didn't last and you didn't have money to get more? Never trueScreening, Brief Intervention, & Referral to Treatment (SBIRT)Pre-Screening Questions How many times have you have 5 or more drinks in a day? 0How many times have you used an illegal drug or used a prescription medication for a non-medical reason? 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 There have been no changes in treatment but they are workng on getting him some testing of his circulation. No report available today.HPI performed by: Guerrero Hodges MD, January 16, 2020 2:40 PMTransitions of Care InboundProblem ReviewProblem List was reviewed and/or updated during this visit.Medication Reconciliation & ReviewMedication List was reviewed and/or updated during this visit, including review of any nnnl-jxc-wasrmac medications, herbal therapies, and/or supplements.Allergy ReviewAllergy List was reviewed and/or updated during this visit.Adult Preventive CareProvider Calculated and Reviewed all Clinical Protocols for patient today. Labs/Meds/Other Counseling-Nutrition and Physical Activity:BMI Interpretation: Obese (01/16/2020) Counseling: Done (01/16/2020) Physical Activity: Done (01/16/2020)Review of Systems General: Denies dizziness, fatigue, headache. Cardiovascular: Denies chest pain. Respiratory: Denies difficulty breathing. Gastrointestinal: Denies diarrhea, constipation. Genitourinary: Denies urinary frequency, urinary urgency. Physical ExamGeneral Appearance: well nourished, well hydrated, no acute distressRespiratory, Auscultation: clear to auscultation bilaterally; no rales, rhonchi, or wheezesRespiratory, Effort: no intercostal retractions or use of accessory musclesCardiovascular, Auscultation: S1, S2 audible; no murmur, rub, or gallop; RRROrientation: oriented to time, place, and personMood & Affect: no depression, anxiety, or agitationJudgment & Insight: intactCare Management Plan Transitions of CareInboundRate Your HealthIn general, would you say your health is? FairAssessment & Plan Problems:Assessed:Non-pressure chronic ulcer of other part of right foot with other specified severity & Other specified diabetes mellitus with foot ulcer (ICD-250.80) (KGT61-H07.518) Assessment: Instructions: Recheck as scheduled with wound clinic.Hypertension (ICD-401.9) ([id number]) Assessment: Instructions: Poor control and has some renal insufficiency which make ACEI or ARB a relative contraindication.Start Coreg CR 10 mg once daily.Patient Instructions/Care Plan: Non-pressure chronic ulcer of other part of right foot with other specified severity & Other specified diabetes mellitus with foot ulcer: Recheck as scheduled with wound clinic.Hypertension: Poor control and has some renal insufficiency which make ACEI or ARB a relative contraindication.Start Coreg CR 10 mg once daily. Plan developed in collaboration with patient and/or familyMedications:COREG CR 10 MG ORAL CAPSULE EXTENDED RELEASE 24 HOURCLINDAMYCIN HCL 300 MG ORAL CAPSULEHYDRALAZINE HCL 25 MG ORAL TABLETACETAMINOPHEN EXTRA STRENGTH 500 MG ORAL TABLETLEVEMIR FLEXTOUCH 100 UNIT/ML SUBCUTANEOUS SOLUTION PEN-INJECTORSIMVASTATIN 20 MG ORAL TABLETPOTASSIUM CHLORIDE NONI ER 10 MEQ ORAL TABLET EXTENDED RELEASEPRODIGY NO CODING BLOOD GLUC IN VITRO STRIPPRODIGY LANCETS 28GPRODIGY LANCING DEVICEPRODIGY AUTOCODE BLOOD GLUCOSE DEVICEAMLODIPINE BESYLATE 10 MG ORAL TABLETMedication Changes:New Prescription:COREG CR 10 MG ORAL CAPSULE EXTENDED RELEASE 24 HOUR- One tablet by mouth every day Qty: 30[Capsule] Refills: 2 Method: ElectronicAllergies:* NKDA (Mild)Orders:Adult - Ofc Vst, EST, Level III [CPT- 22615] Medications:COREG CR 10 MG ORAL CAPSULE EXTENDED RELEASE 24 HOUR (CARVEDILOL PHOSPHATE) One tablet by mouth every day #30[Capsule] x 2 Route:ORAL Entered and Authorized by: Guerrero Hodges MD Method used: Electronically to [facility]* (retail) [address] [place] [address] Fax: Note to Pharmacy: Route: ORAL; RxID: [id number] signed by Guerrero Hodges MD on 01/16/2020 at 2:57 PM Name Value Range Interpretation Code Description Data Rosita rce(s) Supporting Document(s) ID Date Data Source [id number] 12/19/2019 09:15:00 AM EDT [facility] Name Value Range Interpretation Code Description Data Rosita rce(s) Supporting Document(s) BG FASTING 201 mg/dL 70-100 [facility] TSH 2.530 microintl units/mL 0.358-3.740 N [facility] ID Date Data Source [id number] 12/19/2019 09:15:00 AM EDT [facility] Name Value Range Interpretation Code Description Data Rosita rce(s) Supporting Document(s) HGBA1C 11.1 % N [facility] ID Date Data Source [id number] 12/19/2019 08:22:04 AM EDT [facility] Measurements & CalculationsHeight: 69 inches (5 ft. 9 in.) 175.26 cm Weight: 201 pounds 2 oz. 91.42 kg Body Mass Index (BMI): 29.81BMI Interpretation: OverweightBody Surface Area (BSA): 2.07Weight Management Education Done (Nutrition/Physical Activity)Vital SignsTemperature: 96.9F tympanic Pulse Rate: 59 beats/minuteRespiratory Rate: 16 respirations/minuteO2 Saturation: 99% sittingVital Signs performed by: Raquel Zhang MA, December 19, 2019 8:28 AMInitial Intake Information From: patientRoom #: 14Infectious Disease / Travel ScreeningRecent travel for you or any close contacts? NoHave you had any close contact with anyone diagnosed with or under investigation for COVID-19 (coronavirus)? NoFever? NoRespiratory symptoms: cough, cold, congestion, shortness of breath, difficulty breathing? NoLoss of smell? NoLoss of taste? NoSmoking, Tobacco, Vaping or Smoke Exposure StatusSmoke Status: form er smokerTobacco Use: NoDo you vape? NoHealthcare HistorySince your last office visit...Have you been admitted to the hospital? NoHave you been to an emergency room (ER) or urgent care clinic? NoHave you seen another healthcare provider? NoHave you seen a dentist? NoIntake performed by: Raquel Zhang MA, December 19, 2019 8:25 AMRate Your HealthIn general, would you say your health is? FairPain AssessmentAre you currently having any pain which... You would like your provider to address? No Affects your activity level? NoDepression Screening - PHQ-2Over the last two weeks, have you... Had little interest or pleasure in doing things? Not at all Been feeling down, depressed, or hopeless? Not at all PHQ-2 Score: 0Anxiety Screening - FRANCISCA-2Over the last two weeks, have you been... Feeling nervous, anxious, or on edge? Not at all Unable to stop or control worrying? Not at all FRANCSICA-2 Score: 0Screening, Brief Intervention, & Referral to Treatment (SBIRT)Pre-Screening Questions How many times have you have 5 or more drinks in a day? 0How many times have you used an illegal drug or used a prescription medication for a non-medical reason? 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 Johnson's office is no longer willing to see him. There has been change in the foot ulcer.There is some question of his compliance with medication as per Charanjit's visit with him.Sugars are running in the 200s per patient.We are doing fasting blood tests today.HPI performed by: Guerrero Hodges MD, December 19, 2019 8:47 AMProblem ReviewProblem List was reviewed and/or updated during this visit.Medication Reconciliation & ReviewMedication List was reviewed and/or updated during this visit, including review of any [id number] medications, herbal therapies, and/or supplements.Allergy ReviewAllergy List was reviewed and/or updated during this visit.Adult Preventive CareProvider Calculated and Reviewed all Clinical Protocols for patient today. Labs/Meds/Other Counseling-Nutrition and Physical Activity:BMI Interpretation: Overweight (12/19/2019) Counseling: Done (12/19/2019) Physical Activity: Done (12/19/2019)Cancer Screening ColonoscopyReviewed:Previous Comments: Refused( 07/30/2019 (07/30/2019)Today's Comments: pt will discuss next visit (12/19/2019)Physical ExamGeneral Appearance: well nourished, well hydrated, no acute distressRespiratory, Auscultation: clear to auscultation bilaterally; no rales, rhonchi, or wheezesRespiratory, Effort: no intercostal retractions or use of accessory musclesCardiovascular, Auscultation: S1, S2 audible; no murmur, rub, or gallop; RRRPeripheral Circulation: no clubbing, cyanosis, edema, or varicositiesGait & Station: normalSkin, Inspection: Right great toe with small superficial ulcerations. Slight erythema and edema. No drainage.Orientation: oriented to time, place, and personMood & Affect: no depr ession, anxiety, or agitationJudgment & Insight: intactRate Your HealthIn general, would you say your health is? FairAssessment & Plan Problems:Added: Non-pressure chronic ulcer of other part of right foot with other specified severity & Other specified diabetes mellitus with foot ulcer (ICD-250.80) ([id number]) Assessment: Instructions: Refer to wound care.Assessed:DIABETES MELLITUS, UNCONTROLLED (ICD-250.02) ([id number]) Assessment: Instructions: Check fasting blood tests today.Continue current plan and recheck one month.Patient Instructions/Care Plan: DIABETES MELLITUS- UNCONTROLLED: Check fasting blood tests today.Continue current plan and recheck one month.Unable to get eye exam due his lack of dilation of pupils.Non-pressure chronic ulcer of other part of right foot with other specified severity & Other specified diabetes mellitus with foot ulcer: Refer to wound care. Plan developed in collaboration with patient and/or familyMedications:CLINDAMYCIN H CL 300 MG ORAL CAPSULEHYDRALAZINE HCL 25 MG ORAL TABLETACETAMINOPHEN EXTRA STRENGTH 500 MG ORAL TABLETLEVEMIR FLEXTOUCH 100 UNIT/ML SUBCUTANEOUS SOLUTION PEN-INJECTORSIMVASTATIN 20 MG ORAL TABLETPOTASSIUM CHLORIDE NONI ER 10 MEQ ORAL TABLET EXTENDED RELEASEPRODIGY NO CODING BLOOD GLUC IN VITRO STRIPPRODIGY LANCETS 28GPRODIGY LANCING DEVICEPRODIGY AUTOCODE BLOOD GLUCOSE DEVICEAMLODIPINE BESYLATE 10 MG ORAL TABLETAllergies:* NKDA (Mild)Orders:COMP METABOLIC PANEL [CPT-19108] HgBA1c [CPT-48442] LIPID PANEL [CPT-60818] TSH [CPT-31621] Retinal eye exam with interpretation by an managing partner [CPT-2] Adult - Ofc Vst, EST, Level III [CPT-91283] Optometery/Opthamology [CPT-83025] original BP 199/77 (automatic)repeat BP 168/92 (manual) Labs In-House Blood TestsDate/Time Collected: December 19, 2019 9:25 AMTest Result Reference Range Normal ValueComments: blood drawn from right AC PT tolerated well. Ramana Mckeon LPN, December 19, 2019 9:26 AM Name Value Range Interpretation Code Description Data Rosita rce(s) Supporting Document(s) Procedure Social History Code Duration Value Status Description Data Source(s ) Smoking 02/04/2020 12:00:00 AM EDT Patient is a former smoker completed Patient is a former smoker [facility] ([facility], ) Vital Signs ID Date Data Source UNK Name Value Range Interpretation Code Description Data Source(s) Diastolic blood pressure 93 mm[Hg] 93 mm[Hg] [place] ([facility]) Body height 69 [in_i] 69 [in_i] [place] ([facility]) Body mass index (BMI) [Ratio] 28.5 kg/m2 28.5 k g/m2 [place] ([facility]) Systolic blood pressure 212 mm[Hg] 212 mm[Hg] A [place] ([facility]) Body weight 3090 [oz_av] 3090 [oz_av] [place] ([facility]) Diastolic blood pressure 97 mm[Hg] 97 mm[Hg] [place] ([facility]) Diastolic blood pressure 63 mm[Hg] 63 mm[Hg] [place] ([facility]) Body height 69 [in_i] 69 [in_i] [place] ([facility]) Body mass index (BMI) [Ratio] 28.1 kg/m2 28.1 k g/m2 [place] ([facility]) Systolic blood pressure 219 mm[Hg] 219 mm[Hg] A [place] ([facility]) Systolic blood pressure 227 mm[Hg] 227 mm[Hg] [facility] Body weight 3046 [oz_av] 3046 [oz_av] [place] ([facility]) Diastolic blood pressure 97 mm[Hg] 97 mm[Hg] [place] ([facility]) Diastolic blood pressure 63 mm[Hg] 63 mm[Hg] [place] ([facility]) Body height 69 [in_i] 69 [in_i] [place] ([facility]) Body mass index (BMI) [Ratio] 28.1 kg/m2 28.1 k g/m2 [place] ([facility]) Systolic blood pressure 219 mm[Hg] 219 mm[Hg] [facility] Systolic blood pressure 227 mm[Hg] 227 mm[Hg] A [facility] ([facility]) Body weight 3046 [oz_av] 3046 [oz_av] [place] ([facility]) Body mass index (BMI) [Ratio] 28.8 kg/m2 28.8 k g/m2 [place] ([facility]) Diastolic blood pressure 92 mm[Hg] 92 mm[Hg] [place] ([facility]) Systolic blood pressure 218 mm[Hg] 218 mm[Hg] [facility] Body weight 3124 [oz_av] 3124 [oz_av] [place] ([facility]) Body height 69 [in_i] 69 [in_i] [place] ([facility]) Diastolic blood pressure 92 mm[Hg] 92 mm[Hg] [place] ([facility]) Body height 69 [in_i] 69 [in_i] [place] ([facility]) Body mass index (BMI) [Ratio] 28.8 kg/m2 28.8 k g/m2 [place] ([facility]) Systolic blood pressure 218 mm[Hg] 218 mm[Hg] [facility] [place] ([facility]) Body weight 3124 [oz_av] 3124 [oz_av] [place] ([facility]) Diastolic blood pressure 92 mm[Hg] 92 mm[Hg] [place] ([facility]) Body height 69 [in_i] 69 [in_i] [place] ([facility]) Body mass index (BMI) [Ratio] 28.8 kg/m2 28.8 k g/m2 [place] ([facility]) Systolic blood pressure 218 mm[Hg] 218 mm[Hg] [facility] [place] ([facility]) Body weight 3124 [oz_av] 3124 [oz_av] [place] ([facility]) Diastolic blood pressure 84 mm[Hg] 84 mm[Hg] [place] ([facility]) Body height 69 [in_i] 69 [in_i] [place] ([facility]) Body mass index (BMI) [Ratio] 28.9 kg/m2 28.9 k g/m2 [place] ([facility]) Systolic blood pressure 220 mm[Hg] 220 mm[Hg] [facility] [place] ([facility]) Body weight 3126 [oz_av] 3126 [oz_av] [place] ([facility]) Diastolic blood pressure 84 mm[Hg] 84 mm[Hg] [place] ([facility]) Body height 69 [in_i] 69 [in_i] [place] ([facility]) Body mass index (BMI) [Ratio] 28.9 kg/m2 28.9 k g/m2 [place] ([facility]) Systolic blood pressure 220 mm[Hg] 220 mm[Hg] [facility] [place] ([facility]) Body weight 3126 [oz_av] 3126 [oz_av] [place] ([facility]) Diastolic blood pressure 84 mm[Hg] 84 mm[Hg] [place] ([facility]) Body height 69 [in_i] 69 [in_i] [place] ([facility]) Body mass index (BMI) [Ratio] 28.9 kg/m2 28.9 k g/m2 [place] ([facility]) Systolic blood pressure 220 mm[Hg] 220 mm[Hg] [facility] [place] ([facility]) Body weight 3126 [oz_av] 3126 [oz_av] [place] ([facility]) Diastolic blood pressure 84 mm[Hg] 84 mm[Hg] [place] ([facility]) Body height 69 [in_i] 69 [in_i] [place] ([facility]) Body mass index (BMI) [Ratio] 28.9 kg/m2 28.9 k g/m2 [place] ([facility]) Systolic blood pressure 220 mm[Hg] 220 mm[Hg] [facility] [place] ([facility]) Body weight 3126 [oz_av] 3126 [oz_av] [place] ([facility]) Diastolic blood pressure 86 mm[Hg] 86 mm[Hg] [place] ([facility]) Body height 69 [in_i] 69 [in_i] [place] ([facility]) Body mass index (BMI) [Ratio] 28.4 kg/m2 28.4 k g/m2 [place] ([facility]) Systolic blood pressure 208 mm[Hg] 208 mm[Hg] [facility] Body weight 3076 [oz_av] 3076 [oz_av] [place] ([facility]) Systolic blood pressure 208 mm[Hg] 208 mm[Hg] [facility] [place] ([facility]) Body weight 3076 [oz_av] 3076 [oz_av] [place] ([facility]) Diastolic blood pressure 86 mm[Hg] 86 mm[Hg] [place] ([facility]) Body height 69 [in_i] 69 [in_i] [place] ([facility]) Body mass index (BMI) [Ratio] 28.4 kg/m2 28.4 k g/m2 [place] ([facility]) Diastolic blood pressure 86 mm[Hg] 86 mm[Hg] [place] ([facility]) Body height 69 [in_i] 69 [in_i] [place] ([facility]) Body mass index (BMI) [Ratio] 28.4 kg/m2 28.4 k g/m2 [place] ([facility]) Systolic blood pressure 208 mm[Hg] 208 mm[Hg] [facility] [place] ([facility]) Body weight 3076 [oz_av] 3076 [oz_av] [place] ([facility]) Diastolic blood pressure 86 mm[Hg] 86 mm[Hg] [place] ([facility]) Body height 69 [in_i] 69 [in_i] [place] ([facility]) Body mass index (BMI) [Ratio] 28.4 kg/m2 28.4 k g/m2 [place] ([facility]) Systolic blood pressure 208 mm[Hg] 208 mm[Hg] [facility] [place] ([facility]) Body weight 3076 [oz_av] 3076 [oz_av] [place] ([facility]) Diastolic blood pressure 69 mm[Hg] 69 mm[Hg] [place] ([facility]) Body height 69 [in_i] 69 [in_i] [place] ([facility]) Body mass index (BMI) [Ratio] 28.7 kg/m2 28.7 k g/m2 [place] ([facility]) Systolic blood pressure 188 mm[Hg] 188 mm[Hg] [facility] Body weight 3108 [oz_av] 3108 [oz_av] [place] ([facility]) Systolic blood pressure 188 mm[Hg] 188 mm[Hg] [facility] [place] ([facility]) Body weight 3108 [oz_av] 3108 [oz_av] [place] ([facility]) Diastolic blood pressure 69 mm[Hg] 69 mm[Hg] [place] ([facility]) Body height 69 [in_i] 69 [in_i] [place] ([facility]) Body mass index (BMI) [Ratio] 28.7 kg/m2 28.7 k g/m2 [place] ([facility]) Diastolic blood pressure 69 mm[Hg] 69 mm[Hg] [place] ([facility]) Body height 69 [in_i] 69 [in_i] [place] ([facility]) Body mass index (BMI) [Ratio] 28.7 kg/m2 28.7 k g/m2 [place] ([facility]) Systolic blood pressure 188 mm[Hg] 188 mm[Hg] [facility] [place] ([facility]) Body weight 3108 [oz_av] 3108 [oz_av] [place] ([facility]) Diastolic blood pressure 69 mm[Hg] 69 mm[Hg] [place] ([facility]) Body height 69 [in_i] 69 [in_i] [place] ([facility]) Body mass index (BMI) [Ratio] 28.7 kg/m2 28.7 k g/m2 [place] ([facility]) Systolic blood pressure 188 mm[Hg] 188 mm[Hg] [facility] [place] ([facility]) Body weight 3108 [oz_av] 3108 [oz_av] [place] ([facility]) Diastolic blood pressure 69 mm[Hg] 69 mm[Hg] [place] ([facility]) Body height 69 [in_i] 69 [in_i] [place] ([facility]) Body mass index (BMI) [Ratio] 28.7 kg/m2 28.7 k g/m2 [place] ([facility]) Systolic blood pressure 188 mm[Hg] 188 mm[Hg] [facility] [place] ([facility]) Body weight 3108 [oz_av] 3108 [oz_av] [place] ([facility]) Diastolic blood pressure 76 mm[Hg] 76 mm[Hg] [place] ([facility]) Body height 69 [in_i] 69 [in_i] [place] ([facility]) Body mass index (BMI) [Ratio] 28.4 kg/m2 28.4 k g/m2 [place] ([facility]) Systolic blood pressure 195 mm[Hg] 195 mm[Hg] [facility] [place] ([facility]) Body weight 3072 [oz_av] 3072 [oz_av] [place] ([facility]) Body mass index (BMI) [Ratio] 28.4 kg/m2 28.4 k g/m2 [place] ([facility]) Diastolic blood pressure 76 mm[Hg] 76 mm[Hg] [place] ([facility]) Systolic blood pressure 195 mm[Hg] 195 mm[Hg] [facility] Body height 69 [in_i] 69 [in_i] [place] ([facility]) Body weight 3072 [oz_av] 3072 [oz_av] [place] ([facility]) Diastolic blood pressure 76 mm[Hg] 76 mm[Hg] [place] ([facility]) Body height 69 [in_i] 69 [in_i] [place] ([facility]) Body mass index (BMI) [Ratio] 28.4 kg/m2 28.4 k g/m2 [place] ([facility]) Systolic blood pressure 195 mm[Hg] 195 mm[Hg] [facility] [place] ([facility]) Body weight 3072 [oz_av] 3072 [oz_av] [place] ([facility]) Diastolic blood pressure 76 mm[Hg] 76 mm[Hg] [place] ([facility]) Body height 69 [in_i] 69 [in_i] [place] ([facility]) Body mass index (BMI) [Ratio] 28.4 kg/m2 28.4 k g/m2 [place] ([facility]) Systolic blood pressure 195 mm[Hg] 195 mm[Hg] [facility] [place] ([facility]) Body weight 3072 [oz_av] 3072 [oz_av] [place] ([facility]) Diastolic blood pressure 76 mm[Hg] 76 mm[Hg] [place] ([facility]) Body height 69 [in_i] 69 [in_i] [place] ([facility]) Body mass index (BMI) [Ratio] 28.4 kg/m2 28.4 k g/m2 [place] ([facility]) Systolic blood pressure 195 mm[Hg] 195 mm[Hg] [facility] [place] ([facility]) Body weight 3072 [oz_av] 3072 [oz_av] [place] ([facility]) Diastolic blood pressure 76 mm[Hg] 76 mm[Hg] [place] ([facility]) Body height 69 [in_i] 69 [in_i] [place] ([facility]) Body mass index (BMI) [Ratio] 28.4 kg/m2 28.4 k g/m2 [place] ([facility]) Systolic blood pressure 195 mm[Hg] 195 mm[Hg] [facility] [place] ([facility]) Body weight 3072 [oz_av] 3072 [oz_av] [place] ([facility]) Diastolic blood pressure 82 mm[Hg] 82 mm[Hg] [place] ([facility]) Diastolic blood pressure 79 mm[Hg] 79 mm[Hg] [place] ([facility]) Body height 69 [in_i] 69 [in_i] [place] ([facility]) Body mass index (BMI) [Ratio] 29.4 kg/m2 29.4 k g/m2 [place] ([facility]) Systolic blood pressure 178 mm[Hg] 178 mm[Hg] [facility] Systolic blood pressure 219 mm[Hg] 219 mm[Hg] [facility] Body weight 3186 [oz_av] 3186 [oz_av] [place] ([facility]) Diastolic blood pressure 82 mm[Hg] 82 mm[Hg] [place] ([facility]) Diastolic blood pressure 79 mm[Hg] 79 mm[Hg] [place] ([facility]) Body height 69 [in_i] 69 [in_i] [place] ([facility]) Body mass index (BMI) [Ratio] 29.4 kg/m2 29.4 k g/m2 [place] ([facility]) Systolic blood pressure 178 mm[Hg] 178 mm[Hg] [facility] [place] ([facility]) Systolic blood pressure 219 mm[Hg] 219 mm[Hg] [facility] [place] ([facility]) Body weight 3186 [oz_av] 3186 [oz_av] [place] ([facility]) Diastolic blood pressure 79 mm[Hg] 79 mm[Hg] [place] ([facility]) Body height 69 [in_i] 69 [in_i] [place] ([facility]) Body mass index (BMI) [Ratio] 29.4 kg/m2 29.4 k g/m2 [place] ([facility]) Systolic blood pressure 178 mm[Hg] 178 mm[Hg] [facility] [place] ([facility]) Systolic blood pressure 219 mm[Hg] 219 mm[Hg] [facility] [place] ([facility]) Body weight 3186 [oz_av] 3186 [oz_av] [place] ([facility]) Diastolic blood pressure 82 mm[Hg] 82 mm[Hg] [place] ([facility]) Diastolic blood pressure 82 mm[Hg] 82 mm[Hg] [place] ([facility]) Diastolic blood pressure 79 mm[Hg] 79 mm[Hg] [place] ([facility]) Body height 69 [in_i] 69 [in_i] [place] ([facility]) Body mass index (BMI) [Ratio] 29.4 kg/m2 29.4 k g/m2 [place] ([facility]) Systolic blood pressure 178 mm[Hg] 178 mm[Hg] [facility] Systolic blood pressure 219 mm[Hg] 219 mm[Hg] [facility] Body weight 3186 [oz_av] 3186 [oz_av] [place] ([facility]) Diastolic blood pressure 82 mm[Hg] 82 mm[Hg] [place] ([facility]) Diastolic blood pressure 79 mm[Hg] 79 mm[Hg] [place] ([facility]) Body height 69 [in_i] 69 [in_i] [place] ([facility]) Body mass index (BMI) [Ratio] 29.4 kg/m2 29.4 k g/m2 [place] ([facility]) Systolic blood pressure 178 mm[Hg] 178 mm[Hg] [facility] ([facility]) Systolic blood pressure 219 mm[Hg] 219 mm[Hg] [facility] ([facility]) Body weight 3186 [oz_av] 3186 [oz_av] [place] ([facility]) Diastolic blood pressure 82 mm[Hg] 82 mm[Hg] [place] ([facility]) Diastolic blood pressure 79 mm[Hg] 79 mm[Hg] [place] ([facility]) Body height 69 [in_i] 69 [in_i] [place] ([facility]) Body mass index (BMI) [Ratio] 29.4 kg/m2 29.4 k g/m2 [place] ([facility]) Systolic blood pressure 178 mm[Hg] 178 mm[Hg] [facility] ([facility]) Systolic blood pressure 219 mm[Hg] 219 mm[Hg] [facility] ([facility]) Body weight 3186 [oz_av] 3186 [oz_av] [place] ([facility]) Diastolic blood pressure 82 mm[Hg] 82 mm[Hg] [place] ([facility]) Diastolic blood pressure 79 mm[Hg] 79 mm[Hg] [place] ([facility]) Body height 69 [in_i] 69 [in_i] [place] ([facility]) Body mass index (BMI) [Ratio] 29.4 kg/m2 29.4 k g/m2 [place] ([facility]) Systolic blood pressure 178 mm[Hg] 178 mm[Hg] [facility] Systolic blood pressure 219 mm[Hg] 219 mm[Hg] [facility] Body weight 3186 [oz_av] 3186 [oz_av] [place] ([facility]) Diastolic blood pressure 77 mm[Hg] 77 mm[Hg] [place] ([facility]) Body height 69 [in_i] 69 [in_i] [place] ([facility]) Body mass index (BMI) [Ratio] 28.4 kg/m2 28.4 k g/m2 [place] [facility] [facility]) Systolic blood pressure 182 mm[Hg] 182 mm[Hg] A [place] ([facility]) Body weight 3072 [oz_av] 3072 [oz_av] [place] ([facility]) Body weight 3072 [oz_av] 3072 [oz_av] [place] ([facility]) Diastolic blood pressure 77 mm[Hg] 77 mm[Hg] [place] ([facility]) Body height 69 [in_i] 69 [in_i] [place] ([facility]) Body mass index (BMI) [Ratio] 28.4 kg/m2 28.4 k g/m2 [place] ([facility]) Systolic blood pressure 182 mm[Hg] 182 mm[Hg] A [place] ([facility]) Diastolic blood pressure 77 mm[Hg] 77 mm[Hg] [place] ([facility]) Body height 69 [in_i] 69 [in_i] [place] ([facility]) Body mass index (BMI) [Ratio] 28.4 kg/m2 28.4 k g/m2 [place] ([facility]) Systolic blood pressure 182 mm[Hg] 182 mm[Hg] A [place] ([facility]) Body weight 3072 [oz_av] 3072 [oz_av] [place] ([facility]) Diastolic blood pressure 77 mm[Hg] 77 mm[Hg] [place] ([facility]) Body height 69 [in_i] 69 [in_i] [place] ([facility]) Body mass index (BMI) [Ratio] 28.4 kg/m2 28.4 k g/m2 [place] ([facility]) Systolic blood pressure 182 mm[Hg] 182 mm[Hg] A [place] ([facility]) Body weight 3072 [oz_av] 3072 [oz_av] [place] ([facility]) Diastolic blood pressure 77 mm[Hg] 77 mm[Hg] [place] ([facility]) Body height 69 [in_i] 69 [in_i] [place] ([facility]) Body mass index (BMI) [Ratio] 28.4 kg/m2 28.4 k g/m2 [place] ([facility]) Systolic blood pressure 182 mm[Hg] 182 mm[Hg] A [place] ([facility]) Body weight 3072 [oz_av] 3072 [oz_av] [place] ([facility]) Body weight 3072 [oz_av] 3072 [oz_av] [place] ([facility]) Diastolic blood pressure 77 mm[Hg] 77 mm[Hg] [place] ([facility]) Body height 69 [in_i] 69 [in_i] [place] ([facility]) Body mass index (BMI) [Ratio] 28.4 kg/m2 28.4 k g/m2 [place] ([facility]) Systolic blood pressure 182 mm[Hg] 182 mm[Hg] A [place] ([facility]) Diastolic blood pressure 77 mm[Hg] 77 mm[Hg] [place] ([facility]) Body height 69 [in_i] 69 [in_i] [place] ([facility]) Body mass index (BMI) [Ratio] 28.4 kg/m2 28.4 k g/m2 [place] ([facility]) Systolic blood pressure 182 mm[Hg] 182 mm[Hg] A [place] ([facility]) Body weight 3072 [oz_av] 3072 [oz_av] [place] ([facility]) Diastolic blood pressure 77 mm[Hg] 77 mm[Hg] [place] ([facility]) Body height 69 [in_i] 69 [in_i] [place] ([facility]) Body mass index (BMI) [Ratio] 28.4 kg/m2 28.4 k g/m2 [place] ([facility]) Systolic blood pressure 182 mm[Hg] 182 mm[Hg] A [place] ([facility]) Body weight 3072 [oz_av] 3072 [oz_av] [place] ([facility]) Diastolic blood pressure 78 mm[Hg] 78 mm[Hg] [place] ([facility]) Body height 69 [in_i] 69 [in_i] [place] ([facility]) Body mass index (BMI) [Ratio] 27.6 kg/m2 27.6 k g/m2 [place] ([facility]) Systolic blood pressure 185 mm[Hg] 185 mm[Hg] A [place] ([facility]) Body weight 2992 [oz_av] 2992 [oz_av] [place] ([facility]) Diastolic blood pressure 78 mm[Hg] 78 mm[Hg] [place] ([facility]) Body height 69 [in_i] 69 [in_i] [place] ([facility]) Body mass index (BMI) [Ratio] 27.6 kg/m2 27.6 k g/m2 [place] ([facility]) Systolic blood pressure 185 mm[Hg] 185 mm[Hg] A [place] ([facility]) Body weight 2992 [oz_av] 2992 [oz_av] [place] ([facility]) Diastolic blood pressure 78 mm[Hg] 78 mm[Hg] [place] ([facility]) Body height 69 [in_i] 69 [in_i] [place] ([facility]) Body mass index (BMI) [Ratio] 27.6 kg/m2 27.6 k g/m2 [place] ([facility]) Systolic blood pressure 185 mm[Hg] 185 mm[Hg] A [place] ([facility]) Body weight 2992 [oz_av] 2992 [oz_av] [place] ([facility]) Diastolic blood pressure 78 mm[Hg] 78 mm[Hg] [place] ([facility]) Body height 69 [in_i] 69 [in_i] [place] ([facility]) Body mass index (BMI) [Ratio] 27.6 kg/m2 27.6 k g/m2 [place] ([facility]) Systolic blood pressure 185 mm[Hg] 185 mm[Hg] A [place] ([facility]) Body weight 2992 [oz_av] 2992 [oz_av] [place] ([facility]) Diastolic blood pressure 78 mm[Hg] 78 mm[Hg] [place] ([facility]) Body height 69 [in_i] 69 [in_i] [place] ([facility]) Body mass index (BMI) [Ratio] 27.6 kg/m2 27.6 k g/m2 [place] ([facility]) Systolic blood pressure 185 mm[Hg] 185 mm[Hg] A [place] ([facility]) Body weight 2992 [oz_av] 2992 [oz_av] [place] ([facility]) Diastolic blood pressure 78 mm[Hg] 78 mm[Hg] [place] ([facility]) Body height 69 [in_i] 69 [in_i] [place] ([facility]) Body mass index (BMI) [Ratio] 27.6 kg/m2 27.6 k g/m2 [place] ([facility]) Systolic blood pressure 185 mm[Hg] 185 mm[Hg] A [place] ([facility]) Body weight 2992 [oz_av] 2992 [oz_av] [place] ([facility]) Diastolic blood pressure 78 mm[Hg] 78 mm[Hg] [place] ([facility]) Body height 69 [in_i] 69 [in_i] [place] ([facility]) Body mass index (BMI) [Ratio] 27.6 kg/m2 27.6 k g/m2 [place] ([facility]) Systolic blood pressure 185 mm[Hg] 185 mm[Hg] [facility] Body weight 2992 [oz_av] 2992 [oz_av] [place] ([facility]) Diastolic blood pressure 78 mm[Hg] 78 mm[Hg] [place] ([facility]) Body height 69 [in_i] 69 [in_i] [place] ([facility]) Body mass index (BMI) [Ratio] 27.6 kg/m2 27.6 k g/m2 [place] ([facility]) Systolic blood pressure 185 mm[Hg] 185 mm[Hg] [facility] Body weight 2992 [oz_av] 2992 [oz_av] [place] ([facility]) Diastolic blood pressure 78 mm[Hg] 78 mm[Hg] [place] ([facility]) Body height 69 [in_i] 69 [in_i] [place] ([facility]) Body mass index (BMI) [Ratio] 27.6 kg/m2 27.6 k g/m2 [place] ([facility]) Systolic blood pressure 185 mm[Hg] 185 mm[Hg] A [place] ([facility]) Body weight 2992 [oz_av] 2992 [oz_av] [place] ([facility]) Systolic blood pressure 172 mm[Hg] 172 mm[Hg] A [place] ([facility]) Body weight 3008 [oz_av] 3008 [oz_av] [place] ([facility]) Diastolic blood pressure 85 mm[Hg] 85 mm[Hg] [place] ([facility]) Diastolic blood pressure 79 mm[Hg] 79 mm[Hg] [place] ([facility]) Body height 69 [in_i] 69 [in_i] [place] ([facility]) Body mass index (BMI) [Ratio] 27.8 kg/m2 27.8 k g/m2 [place] ([facility]) Systolic blood pressure 164 mm[Hg] 164 mm[Hg] [facility] Diastolic blood pressure 85 mm[Hg] 85 mm[Hg] [place] ([facility]) Systolic blood pressure 164 mm[Hg] 164 mm[Hg] A [place] ([facility]) Systolic blood pressure 172 mm[Hg] 172 mm[Hg] A [facility] ([facility]) Body weight 3008 [oz_av] 3008 [oz_av] [place] ([facility]) Diastolic blood pressure 79 mm[Hg] 79 mm[Hg] [place] ([facility]) Body height 69 [in_i] 69 [in_i] [place] ([facility]) Body mass index (BMI) [Ratio] 27.8 kg/m2 27.8 k g/m2 [place] ([facility]) Body weight 3008 [oz_av] 3008 [oz_av] [place] ([facility]) Diastolic blood pressure 85 mm[Hg] 85 mm[Hg] [place] ([facility]) Diastolic blood pressure 79 mm[Hg] 79 mm[Hg] [place] ([facility]) Body height 69 [in_i] 69 [in_i] [place] ([facility]) Body mass index (BMI) [Ratio] 27.8 kg/m2 27.8 k g/m2 [place] ([facility]) Systolic blood pressure 164 mm[Hg] 164 mm[Hg] A [place] ([facility]) Systolic blood pressure 172 mm[Hg] 172 mm[Hg] [facility] Diastolic blood pressure 79 mm[Hg] 79 mm[Hg] [place] ([facility]) Diastolic blood pressure 85 mm[Hg] 85 mm[Hg] [place] ([facility]) Body height 69 [in_i] 69 [in_i] [place] ([facility]) Body mass index (BMI) [Ratio] 27.8 kg/m2 27.8 k g/m2 [place] ([facility]) Systolic blood pressure 164 mm[Hg] 164 mm[Hg] A [place] ([facility]) Systolic blood pressure 172 mm[Hg] 172 mm[Hg] A [facility] ([facility]) Body weight 3008 [oz_av] 3008 [oz_av] [place] ([facility]) Diastolic blood pressure 85 mm[Hg] 85 mm[Hg] [place] ([facility]) Diastolic blood pressure 79 mm[Hg] 79 mm[Hg] [place] ([facility]) Body height 69 [in_i] 69 [in_i] [place] ([facility]) Body mass index (BMI) [Ratio] 27.8 kg/m2 27.8 k g/m2 [place] ([facility]) Systolic blood pressure 164 mm[Hg] 164 mm[Hg] A [place] ([facility]) Systolic blood pressure 172 mm[Hg] 172 mm[Hg] [facility] Body weight 3008 [oz_av] 3008 [oz_av] [place] ([facility]) Diastolic blood pressure 79 mm[Hg] 79 mm[Hg] [place] ([facility]) Body height 69 [in_i] 69 [in_i] [place] ([facility]) Diastolic blood pressure 85 mm[Hg] 85 mm[Hg] [place] ([facility]) Systolic blood pressure 164 mm[Hg] 164 mm[Hg] A [facility] ([facility]) Body mass index (BMI) [Ratio] 27.8 kg/m2 27.8 k g/m2 [place] ([facility]) Body weight 3008 [oz_av] 3008 [oz_av] [place] ([facility]) Systolic blood pressure 172 mm[Hg] 172 mm[Hg] A [place] ([facility]) Diastolic blood pressure 85 mm[Hg] 85 mm[Hg] [place] ([facility]) Diastolic blood pressure 79 mm[Hg] 79 mm[Hg] [place] ([facility]) Body height 69 [in_i] 69 [in_i] [place] ([facility]) Body mass index (BMI) [Ratio] 27.8 kg/m2 27.8 k g/m2 [place] ([facility]) Systolic blood pressure 164 mm[Hg] 164 mm[Hg] A [place] ([facility]) Systolic blood pressure 172 mm[Hg] 172 mm[Hg] A [place] ([facility]) Body weight 3008 [oz_av] 3008 [oz_av] [place] ([facility]) Diastolic blood pressure 85 mm[Hg] 85 mm[Hg] [place] ([facility]) Diastolic blood pressure 79 mm[Hg] 79 mm[Hg] [place] ([facility]) Body height 69 [in_i] 69 [in_i] [place] ([facility]) Body mass index (BMI) [Ratio] 27.8 kg/m2 27.8 k g/m2 [place] ([facility]) Systolic blood pressure 164 mm[Hg] 164 mm[Hg] A [place] ([facility]) Systolic blood pressure 172 mm[Hg] 172 mm[Hg] A [place] ([facility]) Body weight 3008 [oz_av] 3008 [oz_av] [place] ([facility]) Diastolic blood pressure 85 mm[Hg] 85 mm[Hg] [place] ([facility]) Diastolic blood pressure 79 mm[Hg] 79 mm[Hg] [place] ([facility]) Body height 69 [in_i] 69 [in_i] [place] ([facility]) Body mass index (BMI) [Ratio] 27.8 kg/m2 27.8 k g/m2 [place] ([facility]) Systolic blood pressure 164 mm[Hg] 164 mm[Hg] A [place] ([facility]) Systolic blood pressure 172 mm[Hg] 172 mm[Hg] A [place] ([facility]) Body weight 3008 [oz_av] 3008 [oz_av] [place] ([facility]) Diastolic blood pressure 85 mm[Hg] 85 mm[Hg] [place] ([facility]) Diastolic blood pressure 79 mm[Hg] 79 mm[Hg] [place] ([facility]) Body height 69 [in_i] 69 [in_i] [place] ([facility]) Body mass index (BMI) [Ratio] 27.8 kg/m2 27.8 k g/m2 [place] ([facility]) Systolic blood pressure 164 mm[Hg] 164 mm[Hg] A [place] ([facility]) Systolic blood pressure 172 mm[Hg] 172 mm[Hg] A [place] ([facility]) Body weight 3008 [oz_av] 3008 [oz_av] [place] ([facility]) Body height 69 [in_i] 69 [in_i] [place] ([facility]) Body height 69 [in_i] 69 [in_i] [place] ([facility]) Body height 69 [in_i] 69 [in_i] [place] ([facility]) Body height 69 [in_i] 69 [in_i] [place] ([facility]) Body height 69 [in_i] 69 [in_i] [place] ([facility]) Body height 69 [in_i] 69 [in_i] [place] ([facility]) Body height 69 [in_i] 69 [in_i] [place] ([facility]) Body height 69 [in_i] 69 [in_i] [place] ([facility]) Body height 69 [in_i] 69 [in_i] [place] ([facility]) Body height 69 [in_i] 69 [in_i] [place] ([facility]) Body height 69 [in_i] 69 [in_i] [place] ([facility]) Diastolic blood pressure 80 mm[Hg] 80 mm[Hg] [place] ([facility]) Body height 69 [in_i] 69 [in_i] [place] ([facility]) Body mass index (BMI) [Ratio] 28.5 kg/m2 28.5 k g/m2 [place] ([facility]) Systolic blood pressure 204 mm[Hg] 204 mm[Hg] A [place] ([facility]) Body weight 3088 [oz_av] 3088 [oz_av] [place] ([facility]) Diastolic blood pressure 80 mm[Hg] 80 mm[Hg] [place] ([facility]) Body height 69 [in_i] 69 [in_i] [place] ([facility]) Body mass index (BMI) [Ratio] 28.5 kg/m2 28.5 k g/m2 [place] ([facility]) Systolic blood pressure 204 mm[Hg] 204 mm[Hg] A [place] ([facility]) Body weight 3088 [oz_av] 3088 [oz_av] [place] ([facility]) Diastolic blood pressure 80 mm[Hg] 80 mm[Hg] [place] ([facility]) Body height 69 [in_i] 69 [in_i] [place] ([facility]) Body mass index (BMI) [Ratio] 28.5 kg/m2 28.5 k g/m2 [place] ([facility]) Systolic blood pressure 204 mm[Hg] 204 mm[Hg] A [facility] ([facility]) Body weight 3088 [oz_av] 3088 [oz_av] [place] ([facility]) Diastolic blood pressure 80 mm[Hg] 80 mm[Hg] [place] ([facility]) Body height 69 [in_i] 69 [in_i] [place] ([facility]) Body mass index (BMI) [Ratio] 28.5 kg/m2 28.5 k g/m2 [place] ([facility]) Systolic blood pressure 204 mm[Hg] 204 mm[Hg] A [facility] ([facility]) Body weight 3088 [oz_av] 3088 [oz_av] [place] ([facility]) Diastolic blood pressure 80 mm[Hg] 80 mm[Hg] [place] ([facility]) Body height 69 [in_i] 69 [in_i] [place] ([facility]) Body mass index (BMI) [Ratio] 28.5 kg/m2 28.5 k g/m2 [place] ([facility]) Systolic blood pressure 204 mm[Hg] 204 mm[Hg] A [place] ([facility]) Body weight 3088 [oz_av] 3088 [oz_av] [place] ([facility]) Diastolic blood pressure 80 mm[Hg] 80 mm[Hg] [place] ([facility]) Body height 69 [in_i] 69 [in_i] [place] ([facility]) Body mass index (BMI) [Ratio] 28.5 kg/m2 28.5 k g/m2 [place] ([facility]) Systolic blood pressure 204 mm[Hg] 204 mm[Hg] A [facility] ([facility]) Body weight 3088 [oz_av] 3088 [oz_av] [place] ([facility]) Body weight 3088 [oz_av] 3088 [oz_av] [place] ([facility]) Diastolic blood pressure 80 mm[Hg] 80 mm[Hg] [place] ([facility]) Body height 69 [in_i] 69 [in_i] [place] ([facility]) Body mass index (BMI) [Ratio] 28.5 kg/m2 28.5 k g/m2 [place] ([facility]) Systolic blood pressure 204 mm[Hg] 204 mm[Hg] [facility] Diastolic blood pressure 80 mm[Hg] 80 mm[Hg] [place] ([facility]) Body mass index (BMI) [Ratio] 28.5 kg/m2 28.5 k g/m2 [place] ([facility]) Body height 69 [in_i] 69 [in_i] [place] ([facility]) Systolic blood pressure 204 mm[Hg] 204 mm[Hg] A [place] ([facility]) Body weight 3088 [oz_av] 3088 [oz_av] [place] ([facility]) Diastolic blood pressure 80 mm[Hg] 80 mm[Hg] [place] ([facility]) Body height 69 [in_i] 69 [in_i] [place] ([facility]) Body mass index (BMI) [Ratio] 28.5 kg/m2 28.5 k g/m2 [place] ([facility]) Systolic blood pressure 204 mm[Hg] 204 mm[Hg] A [place] ([facility]) Body weight 3088 [oz_av] 3088 [oz_av] [place] ([facility]) Diastolic blood pressure 80 mm[Hg] 80 mm[Hg] [place] ([facility]) Body height 69 [in_i] 69 [in_i] [place] ([facility]) Body mass index (BMI) [Ratio] 28.5 kg/m2 28.5 k g/m2 [place] ([facility]) Systolic blood pressure 204 mm[Hg] 204 mm[Hg] A [place] ([facility]) Body weight 3088 [oz_av] 3088 [oz_av] [place] ([facility]) Diastolic blood pressure 80 mm[Hg] 80 mm[Hg] [place] ([facility]) Body height 69 [in_i] 69 [in_i] [place] ([facility]) Body mass index (BMI) [Ratio] 28.5 kg/m2 28.5 k g/m2 [place] ([facility]) Systolic blood pressure 204 mm[Hg] 204 mm[Hg] A [place] ([facility]) Body weight 3088 [oz_av] 3088 [oz_av] [place] ([facility]) Diastolic blood pressure 80 mm[Hg] 80 mm[Hg] [place] ([facility]) Body height 69 [in_i] 69 [in_i] [place] ([facility]) Body mass index (BMI) [Ratio] 28.5 kg/m2 28.5 k g/m2 [place] ([facility]) Systolic blood pressure 204 mm[Hg] 204 mm[Hg] [facility] Body weight 3088 [oz_av] 3088 [oz_av] [place] ([facility]) Systolic blood pressure 156 mm[Hg] 156 mm[Hg] [facility] Diastolic blood pressure 63 mm[Hg] 63 mm[Hg] [place] ([facility]) Body height 69 [in_i] 69 [in_i] [place] ([facility]) Body mass index (BMI) [Ratio] 29.3 kg/m2 29.3 k g/m2 [place] ([facility]) Body weight 3176 [oz_av] 3176 [oz_av] [place] ([facility]) Diastolic blood pressure 63 mm[Hg] 63 mm[Hg] [place] ([facility]) Body height 69 [in_i] 69 [in_i] [place] ([facility]) Body mass index (BMI) [Ratio] 29.3 kg/m2 29.3 k g/m2 [place] ([facility]) Systolic blood pressure 156 mm[Hg] 156 mm[Hg] A [place] ([facility]) Body weight 3176 [oz_av] 3176 [oz_av] [place] ([facility]) Diastolic blood pressure 63 mm[Hg] 63 mm[Hg] [place] ([facility]) Body height 69 [in_i] 69 [in_i] [place] ([facility]) Body mass index (BMI) [Ratio] 29.3 kg/m2 29.3 k g/m2 [place] ([facility]) Systolic blood pressure 156 mm[Hg] 156 mm[Hg] A [facility] ([facility]) Body weight 3176 [oz_av] 3176 [oz_av] [place] ([facility]) Diastolic blood pressure 63 mm[Hg] 63 mm[Hg] [place] ([facility]) Body height 69 [in_i] 69 [in_i] [place] ([facility]) Body mass index (BMI) [Ratio] 29.3 kg/m2 29.3 k g/m2 [place] ([facility]) Systolic blood pressure 156 mm[Hg] 156 mm[Hg] A [facility] ([facility]) Body weight 3176 [oz_av] 3176 [oz_av] [place] ([facility]) Diastolic blood pressure 63 mm[Hg] 63 mm[Hg] [place] ([facility]) Body height 69 [in_i] 69 [in_i] [place] ([facility]) Body mass index (BMI) [Ratio] 29.3 kg/m2 29.3 k g/m2 [place] ([facility]) Systolic blood pressure 156 mm[Hg] 156 mm[Hg] A [facility] ([facility]) Body weight 3176 [oz_av] 3176 [oz_av] [place] ([facility]) Diastolic blood pressure 63 mm[Hg] 63 mm[Hg] [place] ([facility]) Body height 69 [in_i] 69 [in_i] [place] ([facility]) Body mass index (BMI) [Ratio] 29.3 kg/m2 29.3 k g/m2 [place] ([facility]) Systolic blood pressure 156 mm[Hg] 156 mm[Hg] [facility] Body weight 3176 [oz_av] 3176 [oz_av] [place] ([facility]) Diastolic blood pressure 63 mm[Hg] 63 mm[Hg] [place] ([facility]) Body height 69 [in_i] 69 [in_i] [place] ([facility]) Body mass index (BMI) [Ratio] 29.3 kg/m2 29.3 k g/m2 [place] [facility] [facility] Systolic blood pressure 156 mm[Hg] 156 mm[Hg] [facility]) Body weight 3176 [oz_av] 3176 [oz_av] [place] ([facility]) Diastolic blood pressure 63 mm[Hg] 63 mm[Hg] [place] ([facility]) Body height 69 [in_i] 69 [in_i] [place] ([facility]) Body mass index (BMI) [Ratio] 29.3 kg/m2 29.3 k g/m2 [place] ([facility]) Systolic blood pressure 156 mm[Hg] 156 mm[Hg] A [facility] ([facility]) Body weight 3176 [oz_av] 3176 [oz_av] [place] ([facility]) Diastolic blood pressure 63 mm[Hg] 63 mm[Hg] [place] ([facility]) Body height 69 [in_i] 69 [in_i] [place] ([facility]) Body mass index (BMI) [Ratio] 29.3 kg/m2 29.3 k g/m2 [place] ([facility]) Systolic blood pressure 156 mm[Hg] 156 mm[Hg] A [place] ([facility]) Body weight 3176 [oz_av] 3176 [oz_av] [place] ([facility]) Diastolic blood pressure 63 mm[Hg] 63 mm[Hg] [place] ([facility]) Body height 69 [in_i] 69 [in_i] [place] ([facility]) Body mass index (BMI) [Ratio] 29.3 kg/m2 29.3 k g/m2 [place] ([facility]) Systolic blood pressure 156 mm[Hg] 156 mm[Hg] [facility] Body weight 3176 [oz_av] 3176 [oz_av] [place] ([facility]) Diastolic blood pressure 63 mm[Hg] 63 mm[Hg] [place] ([facility]) Body height 69 [in_i] 69 [in_i] [place] ([facility]) Body mass index (BMI) [Ratio] 29.3 kg/m2 29.3 k g/m2 [place] ([facility]) Systolic blood pressure 156 mm[Hg] 156 mm[Hg] [facility] Body weight 3176 [oz_av] 3176 [oz_av] [place] ([facility]) Diastolic blood pressure 63 mm[Hg] 63 mm[Hg] [place] ([facility]) Body height 69 [in_i] 69 [in_i] [place] ([facility]) Body mass index (BMI) [Ratio] 29.3 kg/m2 29.3 k g/m2 [place] ([facility]) Systolic blood pressure 156 mm[Hg] 156 mm[Hg] [facility] Body weight 3176 [oz_av] 3176 [oz_av] [place] ([facility]) Body height 69 [in_i] 69 [in_i] [place] ([facility]) Body mass index (BMI) [Ratio] 29.3 kg/m2 29.3 k g/m2 [place] ([facility]) Systolic blood pressure 156 mm[Hg] 156 mm[Hg] A [place] ([facility]) Body weight 3176 [oz_av] 3176 [oz_av] [place] ([facility]) Diastolic blood pressure 63 mm[Hg] 63 mm[Hg] [place] ([facility]) Body weight 190 [lb_av] 190 [lb_av] eCW1 ([facility]) Body weight kg eCW1 ([facility]) Body height 69 [in_i] 69 [in_i] eCW1 ([facility]) Body mass index (BMI) [Ratio] 28.06 kg/m2 28.06 kg/m2 [facility] ([facility]) Heart rate 57 /min 57 /min eCW1 ([facility]) Respiratory rate 20 /min 20 /min eCW1 ([facility]) Body temperature 96.9 [degF] 96.9 [degF] eCW1 ( [facility]) Systolic blood pressure 181 mm[Hg] 181 mm[Hg] e CW1 ([facility]) Diastolic blood pressure 78 mm[Hg] 78 mm[Hg] eCW1 ([facility]) Diastolic blood pressure 75 mm[Hg] 75 mm[Hg] [place] ([facility]) Diastolic blood pressure 78 mm[Hg] 78 mm[Hg] [place] ([facility]) Body height 69 [in_i] 69 [in_i] [place] ([facility]) Body mass index (BMI) [Ratio] 30 kg/m2 30 kg/ m2 [place] ([facility]) Systolic blood pressure 189 mm[Hg] 189 mm[Hg] A [facility] ([facility]) Systolic blood pressure 208 mm[Hg] 208 mm[Hg] A [facility]) Body weight 3251.2 [oz_av] 3251.2 [oz_av] ATHEN A ([facility]) Diastolic blood pressure 75 mm[Hg] 75 mm[Hg] [place] ([facility]) Diastolic blood pressure 78 mm[Hg] 78 mm[Hg] [place] ([facility]) Body height 69 [in_i] 69 [in_i] [place] ([facility]) Body mass index (BMI) [Ratio] 30 kg/m2 30 kg/ m2 [place] ([facility]) Systolic blood pressure 189 mm[Hg] 189 mm[Hg] A [place] ([facility]) Systolic blood pressure 208 mm[Hg] 208 mm[Hg] A [place] ([facility]) Body weight 3251.2 [oz_av] 3251.2 [oz_av] ATHEN A ([facility]) Systolic blood pressure 208 mm[Hg] 208 mm[Hg] A [facility] ([facility]) Diastolic blood pressure 75 mm[Hg] 75 mm[Hg] [place] ([facility]) Diastolic blood pressure 78 mm[Hg] 78 mm[Hg] [place] ([facility]) Body height 69 [in_i] 69 [in_i] [place] ([facility]) Body mass index (BMI) [Ratio] 30 kg/m2 30 kg/ m2 [place] ([facility]) Body weight 3251.2 [oz_av] 3251.2 [oz_av] ATHEN A ([facility]) Systolic blood pressure 189 mm[Hg] 189 mm[Hg] [facility] Diastolic blood pressure 75 mm[Hg] 75 mm[Hg] [place] ([facility]) Diastolic blood pressure 78 mm[Hg] 78 mm[Hg] [place] ([facility]) Body height 69 [in_i] 69 [in_i] [place] ([facility]) Body mass index (BMI) [Ratio] 30 kg/m2 30 kg/ m2 [place] ([facility]) Systolic blood pressure 189 mm[Hg] 189 mm[Hg] [facility] Systolic blood pressure 208 mm[Hg] 208 mm[Hg] [facility] Body weight 3251.2 [oz_av] 3251.2 [oz_av] ATHEN A ([facility]) Diastolic blood pressure 75 mm[Hg] 75 mm[Hg] [place] ([facility]) Diastolic blood pressure 78 mm[Hg] 78 mm[Hg] [place] ([facility]) Body height 69 [in_i] 69 [in_i] [place] ([facility]) Body mass index (BMI) [Ratio] 30 kg/m2 30 kg/ m2 [place] ([facility]) Systolic blood pressure 189 mm[Hg] 189 mm[Hg] A [place] ([facility]) Systolic blood pressure 208 mm[Hg] 208 mm[Hg] A [place] ([facility]) Body weight 3251.2 [oz_av] 3251.2 [oz_av] ATHEN A ([facility]) Diastolic blood pressure 75 mm[Hg] 75 mm[Hg] [place] ([facility]) Diastolic blood pressure 78 mm[Hg] 78 mm[Hg] [place] ([facility]) Body height 69 [in_i] 69 [in_i] [place] ([facility]) Body mass index (BMI) [Ratio] 30 kg/m2 30 kg/ m2 [place] ([facility]) Systolic blood pressure 189 mm[Hg] 189 mm[Hg] A [place] ([facility]) Systolic blood pressure 208 mm[Hg] 208 mm[Hg] A [place] ([facility]) Body weight 3251.2 [oz_av] 3251.2 [oz_av] ATHEN A ([facility]) Diastolic blood pressure 75 mm[Hg] 75 mm[Hg] [place] ([facility]) Diastolic blood pressure 78 mm[Hg] 78 mm[Hg] [place] ([facility]) Body height 69 [in_i] 69 [in_i] [place] ([facility]) Body mass index (BMI) [Ratio] 30 kg/m2 30 kg/ m2 [place] ([facility]) Systolic blood pressure 189 mm[Hg] 189 mm[Hg] A [place] ([facility]) Systolic blood pressure 208 mm[Hg] 208 mm[Hg] A [place] ([facility]) Body weight 3251.2 [oz_av] 3251.2 [oz_av] ATHEN A ([facility]) Systolic blood pressure 189 mm[Hg] 189 mm[Hg] [facility] Diastolic blood pressure 75 mm[Hg] 75 mm[Hg] [place] ([facility]) Diastolic blood pressure 78 mm[Hg] 78 mm[Hg] [place] ([facility]) Body height 69 [in_i] 69 [in_i] [place] ([facility]) Body mass index (BMI) [Ratio] 30 kg/m2 30 kg/ m2 [place] ([facility]) Systolic blood pressure 208 mm[Hg] 208 mm[Hg] A [place] ([facility]) Body weight 3251.2 [oz_av] 3251.2 [oz_av] ATHEN A ([facility]) Diastolic blood pressure 75 mm[Hg] 75 mm[Hg] [place] ([facility]) Diastolic blood pressure 78 mm[Hg] 78 mm[Hg] [place] ([facility]) Body height 69 [in_i] 69 [in_i] [place] ([facility]) Body mass index (BMI) [Ratio] 30 kg/m2 30 kg/ m2 [place] ([facility]) Systolic blood pressure 189 mm[Hg] 189 mm[Hg] A [place] ([facility]) Systolic blood pressure 208 mm[Hg] 208 mm[Hg] A [place] ([facility]) Body weight 3251.2 [oz_av] 3251.2 [oz_av] ATHEN A ([facility]) Diastolic blood pressure 75 mm[Hg] 75 mm[Hg] [place] ([facility]) Diastolic blood pressure 78 mm[Hg] 78 mm[Hg] [place] ([facility]) Body height 69 [in_i] 69 [in_i] [place] ([facility]) Body mass index (BMI) [Ratio] 30 kg/m2 30 kg/ m2 [place] ([facility]) Systolic blood pressure 189 mm[Hg] 189 mm[Hg] A [place] ([facility]) Systolic blood pressure 208 mm[Hg] 208 mm[Hg] A [place] ([facility]) Body weight 3251.2 [oz_av] 3251.2 [oz_av] ATHEN A ([facility]) Diastolic blood pressure 75 mm[Hg] 75 mm[Hg] [place] ([facility]) Diastolic blood pressure 78 mm[Hg] 78 mm[Hg] [place] ([facility]) Body height 69 [in_i] 69 [in_i] [place] ([facility]) Body mass index (BMI) [Ratio] 30 kg/m2 30 kg/ m2 [place] ([facility]) Systolic blood pressure 189 mm[Hg] 189 mm[Hg] A [place] ([facility]) Systolic blood pressure 208 mm[Hg] 208 mm[Hg] [facility] Body weight 3251.2 [oz_av] 3251.2 [oz_av] ATHEN A ([facility]) Diastolic blood pressure 75 mm[Hg] 75 mm[Hg] [place] ([facility]) Diastolic blood pressure 78 mm[Hg] 78 mm[Hg] [place] ([facility]) Body height 69 [in_i] 69 [in_i] [place] ([facility]) Body mass index (BMI) [Ratio] 30 kg/m2 30 kg/ m2 [place] ([facility]) Systolic blood pressure 189 mm[Hg] 189 mm[Hg] A [place] ([facility]) Systolic blood pressure 208 mm[Hg] 208 mm[Hg] A [place] ([facility]) Body weight 3251.2 [oz_av] 3251.2 [oz_av] ATH[facility] A ([facility]) Body height 69 [in_i] 69 [in_i] [place] ([facility]) Diastolic blood pressure 75 mm[Hg] 75 mm[Hg] [place] ([facility]) Diastolic blood pressure 78 mm[Hg] 78 mm[Hg] [place] ([facility]) Body mass index (BMI) [Ratio] 30 kg/m2 30 kg/ m2 [place] ([facility]) Systolic blood pressure 189 mm[Hg] 189 mm[Hg] A [place] ([facility]) Systolic blood pressure 208 mm[Hg] 208 mm[Hg] A [place] ([facility]) Body weight 3251.2 [oz_av] 3251.2 [oz_av] ATH[facility] A ([facility]) Diastolic blood pressure 75 mm[Hg] 75 mm[Hg] [place] ([facility]) Diastolic blood pressure 78 mm[Hg] 78 mm[Hg] [place] ([facility]) Body height 69 [in_i] 69 [in_i] [place] ([facility]) Body mass index (BMI) [Ratio] 30 kg/m2 30 kg/ m2 [place] ([facility]) Systolic blood pressure 189 mm[Hg] 189 mm[Hg] A [place] ([facility]) Systolic blood pressure 208 mm[Hg] 208 mm[Hg] A [place] ([facility]) Body weight 3251.2 [oz_av] 3251.2 [oz_av] A[facility] A ([facility]) Diastolic blood pressure 77 mm[Hg] 77 mm[Hg] [place] ([facility]) Body height 69 [in_i] 69 [in_i] [place] ([facility]) Body mass index (BMI) [Ratio] 30.3 kg/m2 30.3 k g/m2 [place] ([facility]) Systolic blood pressure 181 mm[Hg] 181 mm[Hg] [facility] Body weight 3282 [oz_av] 3282 [oz_av] [place] ([facility]) Diastolic blood pressure 77 mm[Hg] 77 mm[Hg] [place] ([facility]) Body height 69 [in_i] 69 [in_i] [place] ([facility]) Body mass index (BMI) [Ratio] 30.3 kg/m2 30.3 k g/m2 [place] ([facility]) Systolic blood pressure 181 mm[Hg] 181 mm[Hg] A [facility] ([facility]) Body weight 3282 [oz_av] 3282 [oz_av] [place] ([facility]) Diastolic blood pressure 77 mm[Hg] 77 mm[Hg] [place] ([facility]) Body height 69 [in_i] 69 [in_i] [place] ([facility]) Body mass index (BMI) [Ratio] 30.3 kg/m2 30.3 k g/m2 [place] ([facility]) Systolic blood pressure 181 mm[Hg] 181 mm[Hg] [facility] Body weight 3282 [oz_av] 3282 [oz_av] [place] ([facility]) Diastolic blood pressure 77 mm[Hg] 77 mm[Hg] [place] ([facility]) Body height 69 [in_i] 69 [in_i] [place] ([facility]) Body mass index (BMI) [Ratio] 30.3 kg/m2 30.3 k g/m2 [place] ([facility]) Systolic blood pressure 181 mm[Hg] 181 mm[Hg] [facility] ([facility]) Body weight 3282 [oz_av] 3282 [oz_av] [place] ([facility]) Diastolic blood pressure 77 mm[Hg] 77 mm[Hg] [place] ([facility]) Body height 69 [in_i] 69 [in_i] [place] ([facility]) Systolic blood pressure 181 mm[Hg] 181 mm[Hg] [facility] Body weight 3282 [oz_av] 3282 [oz_av] [place] ([facility]) Body mass index (BMI) [Ratio] 30.3 kg/m2 30.3 k g/m2 [place] ([facility]) Diastolic blood pressure 77 mm[Hg] 77 mm[Hg] [place] ([facility]) Body height 69 [in_i] 69 [in_i] [place] ([facility]) Body mass index (BMI) [Ratio] 30.3 kg/m2 30.3 k g/m2 [place] ([facility]) Systolic blood pressure 181 mm[Hg] 181 mm[Hg] [facility] Body weight 3282 [oz_av] 3282 [oz_av] [place] ([facility]) Diastolic blood pressure 77 mm[Hg] 77 mm[Hg] [place] ([facility]) Body height 69 [in_i] 69 [in_i] [place] ([facility]) Body mass index (BMI) [Ratio] 30.3 kg/m2 30.3 k g/m2 [place] ([facility]) Systolic blood pressure 181 mm[Hg] 181 mm[Hg] [facility] Body weight 3282 [oz_av] 3282 [oz_av] [place] ([facility]) Diastolic blood pressure 77 mm[Hg] 77 mm[Hg] [place] ([facility]) Body height 69 [in_i] 69 [in_i] [place] ([facility]) Body mass index (BMI) [Ratio] 30.3 kg/m2 30.3 k g/m2 [place] ([facility]) Systolic blood pressure 181 mm[Hg] 181 mm[Hg] [facility] Body weight 3282 [oz_av] 3282 [oz_av] [place] ([facility]) Diastolic blood pressure 77 mm[Hg] 77 mm[Hg] [place] ([facility]) Body height 69 [in_i] 69 [in_i] [place] ([facility]) Body mass index (BMI) [Ratio] 30.3 kg/m2 30.3 k g/m2 [place] ([facility]) Systolic blood pressure 181 mm[Hg] 181 mm[Hg] [facility] Body weight 3282 [oz_av] 3282 [oz_av] [place] ([facility]) Diastolic blood pressure 77 mm[Hg] 77 mm[Hg] [place] ([facility]) Body height 69 [in_i] 69 [in_i] [place] ([facility]) Body mass index (BMI) [Ratio] 30.3 kg/m2 30.3 k g/m2 [place] ([facility]) Systolic blood pressure 181 mm[Hg] 181 mm[Hg] [facility] ([facility]) Body weight 3282 [oz_av] 3282 [oz_av] [place] ([facility]) Body mass index (BMI) [Ratio] 30.3 kg/m2 30.3 k g/m2 [place] ([facility]) Diastolic blood pressure 77 mm[Hg] 77 mm[Hg] [place] ([facility]) Body height 69 [in_i] 69 [in_i] [place] ([facility]) Systolic blood pressure 181 mm[Hg] 181 mm[Hg] A [place] ([facility]) Body weight 3282 [oz_av] 3282 [oz_av] [place] ([facility]) Body height 69 [in_i] 69 [in_i] [place] ([facility]) Body mass index (BMI) [Ratio] 30.3 kg/m2 30.3 k g/m2 [place] ([facility]) Systolic blood pressure 181 mm[Hg] 181 mm[Hg] A [place] ([facility]) Body weight 3282 [oz_av] 3282 [oz_av] [place] ([facility]) Diastolic blood pressure 77 mm[Hg] 77 mm[Hg] [place] ([facility]) Diastolic blood pressure 77 mm[Hg] 77 mm[Hg] [place] ([facility]) Body height 69 [in_i] 69 [in_i] [place] ([facility]) Body mass index (BMI) [Ratio] 30.3 kg/m2 30.3 k g/m2 [place] ([facility]) Systolic blood pressure 181 mm[Hg] 181 mm[Hg] A [place] ([facility]) Body weight 3282 [oz_av] 3282 [oz_av] [place] ([facility]) Diastolic blood pressure 77 mm[Hg] 77 mm[Hg] [place] ([facility]) Body height 69 [in_i] 69 [in_i] [place] ([facility]) Body mass index (BMI) [Ratio] 30.3 kg/m2 30.3 k g/m2 [place] ([facility]) Systolic blood pressure 181 mm[Hg] 181 mm[Hg] A [place] ([facility]) Body weight 3282 [oz_av] 3282 [oz_av] [place] ([facility]) Diastolic blood pressure 77 mm[Hg] 77 mm[Hg] [place] ([facility]) Body height 69 [in_i] 69 [in_i] [place] ([facility]) Body mass index (BMI) [Ratio] 30.3 kg/m2 30.3 k g/m2 [place] ([facility]) Systolic blood pressure 181 mm[Hg] 181 mm[Hg] A [place] ([facility]) Body weight 3282 [oz_av] 3282 [oz_av] [place] ([facility]) Body weight 202.25 [lb_av] 202.25 [lb_av] MEDQUE T ([facility], ) Body height 69 [in_i] 69 [in_i] GLEN ([facility], ) 5'9" Body mass index (BMI) [Ratio] 29.9 kg/m2 29.9 k g/m2 MEDKEY ([facility] ) [place] body weight 160 [lb_av] 160 [lb_av] MEDEN T ([facility], ) Body weight 91.741 kg 91.741 kg MEDKEY ([facility], ) Systolic blood pressure 189 mm[Hg] 189 mm[Hg] M EDENT ([facility]) Diastolic blood pressure 71 mm[Hg] 71 mm[Hg] [facility] ([facility]) Body height 69 [in_i] 69 [in_i] [facility] ([facility]) 5'9" Body weight 199.38 [lb_av] 199.38 [lb_av] MEDEN T ([facility]) Body mass index (BMI) [Ratio] 29.4 kg/m2 29.4 k g/m2 [facility] ([facility]) [place] body weight 160 [lb_av] 160 [facility]_av] [facility] Body weight 90.[address] [facility] ([facility]) Diastolic blood pressure 79 mm[Hg] 79 mm[Hg] [place] ([facility]) Diastolic blood pressure 79 mm[Hg] 79 mm[Hg] [place] ([facility]) Body height 69 [in_i] 69 [in_i] [place] ([facility]) Body mass index (BMI) [Ratio] 30.11 kg/m2 30.11 kg/m2 [place] ([facility]) Systolic blood pressure 194 mm[Hg] 194 mm[Hg] [facility] ([facility]) Systolic blood pressure 203 mm[Hg] 203 mm[Hg] [facility] ([facility]) Body weight 3250.08 [oz_av] 3250.08 [oz_av] ATH KEVIN ([facility]) Diastolic blood pressure 79 mm[Hg] 79 mm[Hg] [place] ([facility]) Body height 69 [in_i] 69 [in_i] [place] ([facility]) Body mass index (BMI) [Ratio] 30.11 kg/m2 30.11 kg/m2 [place] ([facility]) Systolic blood pressure 194 mm[Hg] 194 mm[Hg] [facility] Systolic blood pressure 203 mm[Hg] 203 mm[Hg] [facility] ([facility]) Body weight 3250.08 [oz_av] 3250.08 [oz_av] ATH KEVIN ([facility]) Diastolic blood pressure 79 mm[Hg] 79 mm[Hg] [place] ([facility]) Diastolic blood pressure 79 mm[Hg] 79 mm[Hg] [place] ([facility]) Diastolic blood pressure 79 mm[Hg] 79 mm[Hg] [place] ([facility]) Body height 69 [in_i] 69 [in_i] [place] ([facility]) Body mass index (BMI) [Ratio] 30.11 kg/m2 30.11 kg/m2 [place] ([facility]) Systolic blood pressure 194 mm[Hg] 194 mm[Hg] A THENA ([facility]) Systolic blood pressure 203 mm[Hg] 203 mm[Hg] [facility] Body weight 3250.08 [oz_av] 3250.08 [oz_av] ATH KEVIN ([facility]) Systolic blood pressure 203 mm[Hg] 203 mm[Hg] [facility] Body weight 3250.08 [oz_av] 3250.08 [oz_av] ATH KEVIN ([facility]) Diastolic blood pressure 79 mm[Hg] 79 mm[Hg] [place] ([facility]) Diastolic blood pressure 79 mm[Hg] 79 mm[Hg] [place] ([facility]) Body height 69 [in_i] 69 [in_i] [place] ([facility]) Body mass index (BMI) [Ratio] 30.11 kg/m2 30.11 kg/m2 [place] ([facility]) Systolic blood pressure 194 mm[Hg] 194 mm[Hg] A THENA ([facility]) Diastolic blood pressure 79 mm[Hg] 79 mm[Hg] [place] ([facility]) Diastolic blood pressure 79 mm[Hg] 79 mm[Hg] [place] ([facility]) Body height 69 [in_i] 69 [in_i] [place] ([facility]) Body mass index (BMI) [Ratio] 30.11 kg/m2 30.11 kg/m2 [place] ([facility]) Systolic blood pressure 194 mm[Hg] 194 mm[Hg] A THENA ([facility]) Systolic blood pressure 203 mm[Hg] 203 mm[Hg] A [place] ([facility]) Body weight 3250.08 [oz_av] 3250.08 [oz_av] ATH [place]EV[place] ([facility]) Diastolic blood pressure 79 mm[Hg] 79 mm[Hg] [place] ([facility]) Diastolic blood pressure 79 mm[Hg] 79 mm[Hg] [place] ([facility]) Body height 69 [in_i] 69 [in_i] [place] ([facility]) Body mass index (BMI) [Ratio] 30.11 kg/m2 30.11 kg/m2 [place] ([facility]) Systolic blood pressure 194 mm[Hg] 194 mm[Hg] [facility] Systolic blood pressure 203 mm[Hg] 203 mm[Hg] [facility] Body weight 3250.08 [oz_av] 3250.08 [oz_av] ATH [place] ([facility]) Diastolic blood pressure 79 mm[Hg] 79 mm[Hg] [place] ([facility]) Diastolic blood pressure 79 mm[Hg] 79 mm[Hg] [place] ([facility]) Body height 69 [in_i] 69 [in_i] [place] ([facility]) Body mass index (BMI) [Ratio] 30.11 kg/m2 30.11 kg/m2 [place] ([facility]) Systolic blood pressure 194 mm[Hg] 194 mm[Hg] A THE[place] ([facility]) Systolic blood pressure 203 mm[Hg] 203 mm[Hg] A [place] ([facility]) Body weight 3250.08 [oz_av] 3250.08 [oz_av] ATH [place] ([facility]) Diastolic blood pressure 79 mm[Hg] 79 mm[Hg] [place] ([facility]) Diastolic blood pressure 79 mm[Hg] 79 mm[Hg] [place] ([facility]) Body height 69 [in_i] 69 [in_i] [place] ([facility]) Body mass index (BMI) [Ratio] 30.11 kg/m2 30.11 kg/m2 [place] ([facility]) Systolic blood pressure 194 mm[Hg] 194 mm[Hg] A [place] ([facility]) Systolic blood pressure 203 mm[Hg] 203 mm[Hg] A [place] ([facility]) Body weight 3250.08 [oz_av] 3250.08 [oz_av] ATH [place] ([facility]) Diastolic blood pressure 79 mm[Hg] 79 mm[Hg] [place] ([facility]) Diastolic blood pressure 79 mm[Hg] 79 mm[Hg] [place] ([facility]) Body height 69 [in_i] 69 [in_i] [place] ([facility]) Body mass index (BMI) [Ratio] 30.11 kg/m2 30.11 kg/m2 [place] ([facility]) Systolic blood pressure 194 mm[Hg] 194 mm[Hg] [facility] Systolic blood pressure 203 mm[Hg] 203 mm[Hg] [facility] Body weight 3250.08 [oz_av] 3250.08 [oz_av] ATH [place] ([facility]) Diastolic blood pressure 79 mm[Hg] 79 mm[Hg] [place] ([facility]) Diastolic blood pressure 79 mm[Hg] 79 mm[Hg] [place] ([facility]) Body height 69 [in_i] 69 [in_i] [place] ([facility]) Body mass index (BMI) [Ratio] 30.11 kg/m2 30.11 kg/m2 [place] ([facility]) Systolic blood pressure 194 mm[Hg] 194 mm[Hg] A [place] ([facility]) Systolic blood pressure 203 mm[Hg] 203 mm[Hg] A [place] ([facility]) Body weight 3250.08 [oz_av] 3250.08 [oz_av] ATH [place] ([facility]) Diastolic blood pressure 79 mm[Hg] 79 mm[Hg] [place] ([facility]) Diastolic blood pressure 79 mm[Hg] 79 mm[Hg] [place] ([facility]) Body height 69 [in_i] 69 [in_i] [place] ([facility]) Body mass index (BMI) [Ratio] 30.11 kg/m2 30.11 kg/m2 [place] ([facility]) Systolic blood pressure 194 mm[Hg] 194 mm[Hg] A [place] ([facility]) Systolic blood pressure 203 mm[Hg] 203 mm[Hg] A [place] ([facility]) Body weight 3250.08 [oz_av] 3250.08 [oz_av] ATH [place] ([facility]) Diastolic blood pressure 79 mm[Hg] 79 mm[Hg] [place] ([facility]) Diastolic blood pressure 79 mm[Hg] 79 mm[Hg] [place] ([facility]) Body height 69 [in_i] 69 [in_i] [place] ([facility]) Body mass index (BMI) [Ratio] 30.11 kg/m2 30.11 kg/m2 [place] ([facility]) Systolic blood pressure 194 mm[Hg] 194 mm[Hg] A [place] ([facility]) Systolic blood pressure 203 mm[Hg] 203 mm[Hg] A [place] ([facility]) Body weight 3250.08 [oz_av] 3250.08 [oz_av] ATH [place] ([facility]) Body weight 185 [lb_av] 185 [lb_av] eCW1 ([facility]) Body weight kg eCW1 ([facility]) Body height 69 [in_i] 69 [in_i] eCW1 ([facility]) Body mass index (BMI) [Ratio] 27.32 kg/m2 27.32 kg/m2 eCW1 ([facility]) Heart rate 64 /min 64 /min eCW1 ([facility] Respiratory rate 18 /min 18 /min eCW1 ([facility]) Body temperature 97.9 [degF] 97.9 [degF] eCW1 ( [facility]) Systolic blood pressure 227 mm[Hg] 227 mm[Hg] e CW1 ([facility]) Diastolic blood pressure 95 mm[Hg] 95 mm[Hg] eCW1 ([facility]) Body height 69 [in_i] 69 [in_i] [place] ([facility]) Body mass index (BMI) [Ratio] 29.81 kg/m2 29.81 kg/m2 [place] ([facility]) Body weight 3218.08 [oz_av] 3218.08 [oz_av] ATH [place] ([facility]) Body weight 3218.08 [oz_av] 3218.08 [oz_av] ATH [place] ([facility]) Body height 69 [in_i] 69 [in_i] [place] ([facility]) Body weight 3218.08 [oz_av] 3218.08 [oz_av] ATH [place] ([facility]) Body height 69 [in_i] 69 [in_i] [place] ([facility]) Body height 69 [in_i] 69 [in_i] [place] ([facility]) Body weight 3218.08 [oz_av] 3218.08 [oz_av] ATH [place] ([facility]) Body height 69 [in_i] 69 [in_i] [place] ([facility]) Body mass index (BMI) [Ratio] 29.81 kg/m2 29.81 kg/m2 [place] ([facility]) Body weight 3218.08 [oz_av] 3218.08 [oz_av] ATH [place] ([facility]) Body height 69 [in_i] 69 [in_i] [place] ([facility]) Body mass index (BMI) [Ratio] 29.81 kg/m2 29.81 kg/m2 [place] ([facility]) Body weight 3218.08 [oz_av] 3218.08 [oz_av] ATH [place] ([facility]) Body height 69 [in_i] 69 [in_i] [place] ([facility]) Body mass index (BMI) [Ratio] 29.81 kg/m2 29.81 kg/m2 [place] ([facility]) Body weight 3218.08 [oz_av] 3218.08 [oz_av] ATH [place] ([facility]) Body height 69 [in_i] 69 [in_i] [place] ([facility]) Body mass index (BMI) [Ratio] 29.81 kg/m2 29.81 kg/m2 [place] ([facility]) Body weight 3218.08 [oz_av] 3218.08 [oz_av] ATH [place] ([facility]) Body height 69 [in_i] 69 [in_i] [place] ([facility]) Body mass index (BMI) [Ratio] 29.81 kg/m2 29.81 kg/m2 [place] ([facility]) Body weight 3218.08 [oz_av] 3218.08 [oz_av] A[place] ([facility]) Body height 69 [in_i] 69 [in_i] [place] ([facility]) Body mass index (BMI) [Ratio] 29.81 kg/m2 29.81 kg/m2 [place] ([facility]) Body weight 3218.08 [oz_av] 3218.08 [oz_av] ATH [place] ([facility]) Body height 69 [in_i] 69 [in_i] [place] ([facility]) Body mass index (BMI) [Ratio] 29.81 kg/m2 29.81 kg/m2 [place] ([facility]) Body weight 3218.08 [oz_av] 3218.08 [oz_av] ATH [place] ([facility]) Body height 69 [in_i] 69 [in_i] [place] ([facility]) Body mass index (BMI) [Ratio] 29.81 kg/m2 29.81 kg/m2 [place] ([facility]) Body weight 3218.08 [oz_av] 3218.08 [oz_av] ATH [place] ([facility]) Body height 69 [in_i] 69 [in_i] [place] ([facility]) Body mass index (BMI) [Ratio] 29.81 kg/m2 29.81 kg/m2 [place] ([facility]) Body weight 3218.08 [oz_av] 3218.08 [oz_av] ATH [place] ([facility]) Body height 69 [in_i] 69 [in_i] [place] ([facility]) Body mass index (BMI) [Ratio] 29.81 kg/m2 29.81 kg/m2 [place] ([facility]) Body weight 3218.08 [oz_av] 3218.08 [oz_av] ATH [place] ([facility]) Body height 69 [in_i] 69 [in_i] [place] ([facility]) Body mass index (BMI) [Ratio] 29.81 kg/m2 29.81 kg/m2 [place] ([facility]) Body weight 3218.08 [oz_av] 3218.08 [oz_av] ATH [place] ([facility]) Patient Treatment Plan of Care Planned Activity Planned Date Details Description Data Source (s) Pen [place] 31 G X 5 MM 02/23/2020 12:00:00 AM EST NETSMART ([facility]) AmLODIPine Besylate 10 MG 02/23/2020 12:00:00 AM EST NETSMART ([facility]) Potassium Chloride Noni ER 20 MEQ 02/23/2020 12:00:00 AM EST NETSMART ([facility]) Simvastatin 20 MG 02/23/2020 12:00:00 AM EST NETSMART ([facility]) Carvedilol Phosphate ER 10 MG 02/23/2020 12:00:00 AM EST [facility]SMART ([facility]) HydrALAZINE HCl 25 MG 02/23/2020 12:00:00 AM EST NETSMART ([facility]) Levemir FlexTouch 100 UNIT/ML 02/23/2020 12:00:00 AM EST NETSMART ([facility]) Linagliptin 5 MG Oral Tablet [Tradjenta] [place] ([facility]) Simvastatin 80 MG Oral Tablet [place] ([facility]) potassium chloride ER 20 mEq tablet,extended release(part/cryst) [place] ([facility]) potassium chloride ER 10 mEq tablet,exte nded release(part/cryst) TAKE TWO TABLETS BY MOUTH ONCE DAILY ATHE NA ([facility]) Potassium Chloride 10 MEQ Extended Release Oral Tablet [place] ([facility]) Pen Needle 31 gauge x 5/16" USE DIRECTED WITH INSULIN [place] ([facility]) Pen Needle 31 gauge x 3/16" [place] ([facility]) OneTouch Ultra2 Meter USE DIRECTED TO CHECK BLOOD GLUCOSE FOUR TIMES DAILY [place] ([facility]) OneTouch Ultra2 Meter Check BG qid. [place] ([facility]) OneTouch Ultra Blue Test Strip [place] ([facility]) Omeprazole 20 MG Delayed Release Oral Capsule [place] ([facility]) Metformin hydrochloride 1000 MG Oral Tablet [place] ([facility]) Lisinopril 40 MG Oral Tablet [place] ([facility]) insulin detemir 100 UNT/ML Injectable Solution [Levemir] [place] ([facility]) Levemir FlexTouch U-100 Insuln 80 units at bedtime [place] ([facility]) Acetaminophen 325 MG / Hydrocodone Bitartrate 5 MG Oral Tablet [place] ([facility]) Hydrochlorothiazide 25 MG Oral Tablet [place] ([facility]) Hydralazine Hydrochloride 25 MG Oral Tablet [place] ([facility]) gabapentin 100 MG Oral Capsule [place] ([facility]) Furosemide 40 MG Oral Tablet [place] ([facility]) clopidogrel 75 MG Oral Tablet [place] ([facility]) Clindamycin 300 MG Oral Capsule [place] ([facility]) Clindamycin 150 MG Oral Capsule [place] ([facility]) Cephalexin 500 MG Oral Capsule [place] ([facility]) 24 HR carvedilol phosphate 10 MG Extended Release Oral Capsule [place] ([facility]) Linagliptin 5 MG Oral Tablet [Tradjenta] [place] ([facility]) Simvastatin 80 MG Oral Tablet [place] ([facility]) potassium chloride ER 20 mEq tablet,extended release(part/cryst) [place] ([facility]) potassium chloride ER 10 mEq tablet,exte nded release(part/cryst) TAKE TWO TABLETS BY MOUTH ONCE DAILY ATHE NA ([facility]) Potassium Chloride 10 MEQ Extended Release Oral Tablet [place] ([facility]) Pen Needle 31 gauge x 5/16" USE DIRECTED WITH INSULIN [place] ([facility]) Pen Needle 31 gauge x 3/16" [place] ([facility]) OneTouch Ultra2 Meter Check BG qid. [place] ([facility]) OneTouch Ultra2 Meter USE DIRECTED TO CHECK BLOOD GLUCOSE FOUR TIMES DAILY [place] ([facility]) OneTouch Ultra Blue Test Strip [place] ([facility]) Omeprazole 20 MG Delayed Release Oral Capsule [place] ([facility]) Metformin hydrochloride 1000 MG Oral Tablet [place] ([facility]) Lisinopril 40 MG Oral Tablet [place] ([facility]) insulin detemir 100 UNT/ML Injectable Solution [Levemir] [place] ([facility]) 24 HR carvedilol phosphate 10 MG Extended Release Oral Capsule [place] ([facility]) Linagliptin 5 MG Oral Tablet [Tradjenta] [place] ([facility]) Simvastatin 80 MG Oral Tablet [place] ([facility]) potassium chloride ER 20 mEq tablet,extended release(part/cryst) [place] ([facility]) potassium chloride ER 10 mEq tablet,exte nded release(part/cryst) TAKE TWO TABLETS BY MOUTH ONCE DAILY ATHE NA ([facility]) Potassium Chloride 10 MEQ Extended Release Oral Tablet [place] ([facility]) Pen Needle 31 gauge x 5/16" USE DIRECTED WITH INSULIN [place] ([facility]) Pen Needle 31 gauge x 3/16" [place] ([facility]) OneTouch Ultra2 Meter Check BG qid. [place] ([facility]) OneTouch Ultra2 Meter USE DIRECTED TO CHECK BLOOD GLUCOSE FOUR TIMES DAILY [place] ([facility]) OneTouch Ultra Blue Test Strip [place] ([facility]) Omeprazole 20 MG Delayed Release Oral Capsule [place] ([facility]) Metformin hydrochloride 1000 MG Oral Tablet [place] ([facility]) Lisinopril 40 MG Oral Tablet [place] ([facility]) insulin detemir 100 UNT/ML Injectable Solution [Levemir] [place] ([facility]) Acetaminophen 325 MG / Hydrocodone Bitartrate 5 MG Oral Tablet [place] ([facility]) gabapentin 100 MG Oral Capsule [place] ([facility]) Furosemide 40 MG Oral Tablet [place] ([facility]) clopidogrel 75 MG Oral Tablet [place] ([facility]) Clindamycin 300 MG Oral Capsule [place] ([facility]) Clindamycin 150 MG Oral Capsule [place] ([facility]) 24 HR carvedilol phosphate 10 MG Extended Release Oral Capsule [place] ([facility]) insulin detemir 100 UNT/ML Injectable Solution [Levemir] [place] ([facility]) Acetaminophen 325 MG / Hydrocodone Bitartrate 5 MG Oral Tablet [place] ([facility]) gabapentin 100 MG Oral Capsule [place] ([facility]) Furosemide 40 MG Oral Tablet [place] ([facility]) clopidogrel 75 MG Oral Tablet [place] ([facility]) Clindamycin 300 MG Oral Capsule [place] ([facility]) Clindamycin 150 MG Oral Capsule [place] ([facility]) 24 HR carvedilol phosphate 10 MG Extended Release Oral Capsule [place] ([facility]) Linagliptin 5 MG Oral Tablet [Tradjenta] [place] ([facility]) Simvastatin 80 MG Oral Tablet [place] ([facility]) potassium chloride ER 20 mEq tablet,extended release(part/cryst) [place] ([facility]) potassium chloride ER 10 mEq tablet,exte nded release(part/cryst) TAKE TWO TABLETS BY MOUTH ONCE DAILY ATHE NA ([facility]) Potassium Chloride 10 MEQ Extended Release Oral Tablet [place] ([facility]) Pen Needle 31 gauge x 5/16" USE DIRECTED WITH INSULIN [place] ([facility]) Pen Needle 31 gauge x 3/16" [place] ([facility]) OneTouch Ultra2 Meter Check BG qid. [place] ([facility]) OneTouch Ultra2 Meter USE DIRECTED TO CHECK BLOOD GLUCOSE FOUR TIMES DAILY [place] ([facility]) OneTouch Ultra Blue Test Strip [place] ([facility]) Omeprazole 20 MG Delayed Release Oral Capsule [place] ([facility]) Metformin hydrochloride 1000 MG Oral Tablet [place] ([facility]) Lisinopril 40 MG Oral Tablet [place] ([facility]) insulin detemir 100 UNT/ML Injectable Solution [Levemir] [place] ([facility]) Acetaminophen 325 MG / Hydrocodone Bitartrate 5 MG Oral Tablet [place] ([facility]) gabapentin 100 MG Oral Capsule [place] ([facility]) Furosemide 40 MG Oral Tablet [place] ([facility]) clopidogrel 75 MG Oral Tablet [place] ([facility]) Clindamycin 300 MG Oral Capsule [place] ([facility]) Clindamycin 150 MG Oral Capsule [place] ([facility]) 24 HR carvedilol phosphate 10 MG Extended Release Oral Capsule [place] ([facility]) Linagliptin 5 MG Oral Tablet [Tradjenta] [place] ([facility]) Simvastatin 80 MG Oral Tablet [place] ([facility]) potassium chloride ER 20 mEq tablet,extended release(part/cryst) [place] ([facility]) potassium chloride ER 10 mEq tablet,exte nded release(part/cryst) TAKE TWO TABLETS BY MOUTH ONCE DAILY ATHE NA ([facility]) Potassium Chloride 10 MEQ Extended Release Oral Tablet [place] ([facility]) Pen Needle 31 gauge x 5/16" USE DIRECTED WITH INSULIN [place] ([facility]) Pen Needle 31 gauge x 3/16" [place] ([facility]) OneTouch Ultra2 Meter USE DIRECTED TO CHECK BLOOD GLUCOSE FOUR TIMES DAILY [place] ([facility]) OneTouch Ultra2 Meter Check BG qid. [place] ([facility]) OneTouch Ultra Blue Test Strip [place] ([facility]) Omeprazole 20 MG Delayed Release Oral Capsule [place] ([facility]) Metformin hydrochloride 1000 MG Oral Tablet [place] ([facility]) Lisinopril 40 MG Oral Tablet [place] ([facility]) insulin detemir 100 UNT/ML Injectable Solution [Levemir] [place] ([facility]) Acetaminophen 325 MG / Hydrocodone Bitartrate 5 MG Oral Tablet [place] ([facility]) Hydrochlorothiazide 25 MG Oral Tablet [place] ([facility]) gabapentin 100 MG Oral Capsule [place] ([facility]) Furosemide 40 MG Oral Tablet [place] ([facility]) clopidogrel 75 MG Oral Tablet [place] ([facility]) Clindamycin 300 MG Oral Capsule [place] ([facility]) Clindamycin 150 MG Oral Capsule [place] ([facility]) 24 HR carvedilol phosphate 10 MG Extended Release Oral Capsule [place] ([facility]) Linagliptin 5 MG Oral Tablet [Tradjenta] [place] ([facility]) Simvastatin 80 MG Oral Tablet [place] ([facility]) potassium chloride ER 20 mEq tablet,extended release(part/cryst) [place] ([facility]) potassium chloride ER 10 mEq tablet,exte nded release(part/cryst) TAKE TWO TABLETS BY MOUTH ONCE DAILY ATHE NA ([facility]) Potassium Chloride 10 MEQ Extended Release Oral Tablet [place] ([facility]) Pen Needle 31 gauge x 5/16" USE DIRECTED WITH INSULIN [place] ([facility]) Pen Needle 31 gauge x 3/16" [place] ([facility]) OneTouch Ultra2 Meter Check BG qid. [place] ([facility]) OneTouch Ultra2 Meter USE DIRECTED TO CHECK BLOOD GLUCOSE FOUR TIMES DAILY [place] ([facility]) OneTouch Ultra Blue Test Strip [place] ([facility]) Omeprazole 20 MG Delayed Release Oral Capsule [place] ([facility]) Metformin hydrochloride 1000 MG Oral Tablet [place] ([facility]) Lisinopril 40 MG Oral Tablet [place] ([facility]) insulin detemir 100 UNT/ML Injectable Solution [Levemir] [place] ([facility]) Acetaminophen 325 MG / Hydrocodone Bitartrate 5 MG Oral Tablet [place] ([facility]) Hydrochlorothiazide 25 MG Oral Tablet [place] ([facility]) gabapentin 100 MG Oral Capsule [place] ([facility]) Furosemide 40 MG Oral Tablet [place] ([facility]) clopidogrel 75 MG Oral Tablet [place] ([facility] [facility]) Clindamycin 300 MG Oral Capsule [place] ([facility] Clindamycin 150 MG Oral Capsule [place] ([facility]) 24 HR carvedilol phosphate 10 MG Extended Release Oral Capsule [place] ([facility] Linagliptin 5 MG Oral Tablet [Tradjenta] [place] ([facility]) Simvastatin 80 MG Oral Tablet [place] ([facility]) potassium chloride ER 20 mEq tablet,extended release(part/cryst) [place] ([facility]) potassium chloride ER 10 mEq tablet,exte nded release(part/cryst) TAKE TWO TABLETS BY MOUTH ONCE DAILY ATHE [place] ([facility]) Potassium Chloride 10 MEQ Extended Release Oral Tablet [place] ([facility]) Levemir FlexTouch U-100 Insuln 80 units at bedtime [place] ([facility]) Acetaminophen 325 MG / Hydrocodone Bitartrate 5 MG Oral Tablet [place] ([facility]) Hydrochlorothiazide 25 MG Oral Tablet [place] ([facility]) Hydralazine Hydrochloride 25 MG Oral Tablet [place] ([facility]) gabapentin 100 MG Oral Capsule [place] ([facility]) Furosemide 40 MG Oral Tablet [place] ([facility]) clopidogrel 75 MG Oral Tablet [place] ([facility]) Clindamycin 300 MG Oral Capsule [place] ([facility]) Clindamycin 150 MG Oral Capsule [place] ([facility]) Cephalexin 500 MG Oral Capsule [place] ([facility]) 24 HR carvedilol phosphate 10 MG Extended Release Oral Capsule [place] ([facility]) Linagliptin 5 MG Oral Tablet [Tradjenta] [place] ([facility]) Simvastatin 80 MG Oral Tablet [place] ([facility]) potassium chloride ER 20 mEq tablet,extended release(part/cryst) [place] ([facility]) potassium chloride ER 10 mEq tablet,exte nded release(part/cryst) TAKE TWO TABLETS BY MOUTH ONCE DAILY ATHE NA ([facility]) Potassium Chloride 10 MEQ Extended Release Oral Tablet [place] ([facility]) Pen Needle 31 gauge x 5/16" USE DIRECTED WITH INSULIN [place] ([facility]) Pen Needle 31 gauge x 3/16" [place] ([facility]) OneTouch Ultra2 Meter USE DIRECTED TO CHECK BLOOD GLUCOSE FOUR TIMES DAILY [place] ([facility]) OneTouch Ultra2 Meter Check BG qid. [place] ([facility]) OneTouch Ultra Blue Test Strip [place] ([facility]) Omeprazole 20 MG Delayed Release Oral Capsule [place] ([facility]) Metformin hydrochloride 1000 MG Oral Tablet [place] ([facility]) Lisinopril 40 MG Oral Tablet [place] ([facility]) insulin detemir 100 UNT/ML Injectable Solution [Levemir] [place] ([facility]) Acetaminophen 325 MG / Hydrocodone Bitartrate 5 MG Oral Tablet [place] ([facility]) Hydrochlorothiazide 25 MG Oral Tablet [place] ([facility]) Hydralazine Hydrochloride 25 MG Oral Tablet [place] ([facility]) gabapentin 100 MG Oral Capsule [place] ([facility]) Furosemide 40 MG Oral Tablet [place] ([facility]) clopidogrel 75 MG Oral Tablet [place] ([facility]) Clindamycin 300 MG Oral Capsule [place] ([facility]) Clindamycin 150 MG Oral Capsule [place] ([facility]) Cephalexin 500 MG Oral Capsule [place] ([facility]) 24 HR carvedilol phosphate 10 MG Extended Release Oral Capsule [place] ([facility]) Linagliptin 5 MG Oral Tablet [Tradjenta] [place] ([facility]) Simvastatin 80 MG Oral Tablet [place] ([facility]) potassium chloride ER 20 mEq tablet,extended release(part/cryst) [place] ([facility]) potassium chloride ER 10 mEq tablet,exte nded release(part/cryst) TAKE TWO TABLETS BY MOUTH ONCE DAILY ATHE NA ([facility]) Potassium Chloride 10 MEQ Extended Release Oral Tablet [place] ([facility]) Pen Needle 31 gauge x 5/16" USE DIRECTED WITH INSULIN [place] ([facility]) Pen Needle 31 gauge x 3/16" [place] ([facility]) OneTouch Ultra2 Meter USE DIRECTED TO CHECK BLOOD GLUCOSE FOUR TIMES DAILY [place] ([facility]) OneTouch Ultra2 Meter Check BG qid. [place] ([facility]) OneTouch Ultra Blue Test Strip [place] ([facility]) Omeprazole 20 MG Delayed Release Oral Capsule [place] ([facility]) Metformin hydrochloride 1000 MG Oral Tablet [place] ([facility]) Lisinopril 40 MG Oral Tablet [place] ([facility]) insulin detemir 100 UNT/ML Injectable Solution [Levemir] [place] ([facility]) Acetaminophen 325 MG / Hydrocodone Bitartrate 5 MG Oral Tablet [place] ([facility]) Hydrochlorothiazide 25 MG Oral Tablet [place] ([facility]) Hydralazine Hydrochloride 25 MG Oral Tablet [place] ([facility]) gabapentin 100 MG Oral Capsule [place] ([facility]) Furosemide 40 MG Oral Tablet [place] ([facility]) clopidogrel 75 MG Oral Tablet [place] ([facility]) Clindamycin 300 MG Oral Capsule [place] ([facility]) Clindamycin 150 MG Oral Capsule [place] ([facility]) Omeprazole 20 MG Delayed Release Oral Capsule [place] ([facility]) Metformin hydrochloride 1000 MG Oral Tablet [place] ([facility]) Lisinopril 40 MG Oral Tablet [place] ([facility]) insulin detemir 100 UNT/ML Injectable Solution [Levemir] [place] ([facility]) Acetaminophen 325 MG / Hydrocodone Bitartrate 5 MG Oral Tablet [place] ([facility]) Hydrochlorothiazide 25 MG Oral Tablet [place] ([facility]) Hydralazine Hydrochloride 25 MG Oral Tablet [place] ([facility]) gabapentin 100 MG Oral Capsule [place] ([facility]) Furosemide 40 MG Oral Tablet [place] ([facility]) clopidogrel 75 MG Oral Tablet [place] ([facility]) Clindamycin 300 MG Oral Capsule [place] ([facility]) Clindamycin 150 MG Oral Capsule [place] ([facility]) 24 HR carvedilol phosphate 10 MG Extended Release Oral Capsule [place] ([facility]) Amlodipine 10 MG Oral Tablet [place] ([facility]) Linagliptin 5 MG Oral Tablet [Tradjenta] [place] ([facility]) Simvastatin 80 MG Oral Tablet [place] ([facility]) potassium chloride ER 10 mEq tablet,exte nded release(part/cryst) TAKE TWO TABLETS BY MOUTH ONCE DAILY ATHE NA ([facility]) Potassium Chloride 10 MEQ Extended Release Oral Tablet [place] ([facility]) Omeprazole 20 MG Delayed Release Oral Capsule [place] ([facility]) Metformin hydrochloride 1000 MG Oral Tablet [place] ([facility]) Lisinopril 40 MG Oral Tablet [place] ([facility]) insulin detemir 100 UNT/ML Injectable Solution [Levemir] [place] ([facility]) Acetaminophen 325 MG / Hydrocodone Bitartrate 5 MG Oral Tablet [place] ([facility]) Hydrochlorothiazide 25 MG Oral Tablet [place] ([facility]) gabapentin 100 MG Oral Capsule [place] ([facility]) Furosemide 40 MG Oral Tablet [place] ([facility]) clopidogrel 75 MG Oral Tablet [place] ([facility]) Clindamycin 300 MG Oral Capsule [place] ([facility]) Clindamycin 150 MG Oral Capsule [place] ([facility]) 24 HR carvedilol phosphate 10 MG Extended Release Oral Capsule [place] ([facility]) Clindamycin 150 MG Oral Capsule [place] ([facility]) 24 HR carvedilol phosphate 10 MG Extended Release Oral Capsule [place] ([facility]) Linagliptin 5 MG Oral Tablet [Tradjenta] [place] ([facility]) Simvastatin 80 MG Oral Tablet [place] ([facility]) potassium chloride ER 10 mEq tablet,exte nded release(part/cryst) TAKE TWO TABLETS BY MOUTH ONCE DAILY AT[facility] [place] ([facility]) Potassium Chloride 10 MEQ Extended Release Oral Tablet [place] ([facility]) Omeprazole 20 MG Delayed Release Oral Capsule [place] ([facility]) Metformin hydrochloride 1000 MG Oral Tablet [place] ([facility]) Lisinopril 40 MG Oral Tablet [place] ([facility]) insulin detemir 100 UNT/ML Injectable Solution [Levemir] [place] ([facility]) Acetaminophen 325 MG / Hydrocodone Bitartrate 5 MG Oral Tablet [place] ([facility]) Hydrochlorothiazide 25 MG Oral Tablet [place] ([facility]) gabapentin 100 MG Oral Capsule [place] ([facility]) Furosemide 40 MG Oral Tablet [place] ([facility]) clopidogrel 75 MG Oral Tablet [place] ([facility]) Clindamycin 300 MG Oral Capsule [place] ([facility]) Clindamycin 150 MG Oral Capsule [place] ([facility]) Linagliptin 5 MG Oral Tablet [Tradjenta] [place] ([facility]) Simvastatin 80 MG Oral Tablet [place] ([facility]) potassium chloride ER 10 mEq tablet,exte nded release(part/cryst) TAKE TWO TABLETS BY MOUTH ONCE DAILY ATHE [place] ([facility]) Potassium Chloride 10 MEQ Extended Release Oral Tablet [place] ([facility]) Omeprazole 20 MG Delayed Release Oral Capsule [place] ([facility]) Metformin hydrochloride 1000 MG Oral Tablet [place] ([facility]) Lisinopril 40 MG Oral Tablet [place] ([facility]) insulin detemir 100 UNT/ML Injectable Solution [Levemir] [place] ([facility]) Acetaminophen 325 MG / Hydrocodone Bitartrate 5 MG Oral Tablet [place] ([facility]) Hydrochlorothiazide 25 MG Oral Tablet [place] ([facility]) gabapentin 100 MG Oral Capsule [place] ([facility]) Furosemide 40 MG Oral Tablet [place] ([facility]) clopidogrel 75 MG Oral Tablet [place] ([facility]) Clindamycin 300 MG Oral Capsule [place] ([facility]) Clindamycin 150 MG Oral Capsule [place] ([facility]) Linagliptin 5 MG Oral Tablet [Tradjenta] [place] ([facility]) Simvastatin 80 MG Oral Tablet [place] ([facility]) potassium chloride ER 20 mEq tablet,extended release(part/cryst) [place] ([facility]) potassium chloride ER 10 mEq tablet,exte nded release(part/cryst) TAKE TWO TABLETS BY MOUTH ONCE DAILY ATHE NA ([facility]) Potassium Chloride 10 MEQ Extended Release Oral Tablet [place] ([facility]) Pen Needle 31 gauge x 5/16" USE DIRECTED WITH INSULIN [place] ([facility]) Pen Needle 31 gauge x 3/16" [place] ([facility]) OneTouch Ultra2 Meter USE DIRECTED TO CHECK BLOOD GLUCOSE FOUR TIMES DAILY [place] ([facility]) OneTouch Ultra2 Meter Check BG qid. [place] ([facility]) OneTouch Ultra Blue Test Strip [place] ([facility]) Omeprazole 20 MG Delayed Release Oral Capsule [place] ([facility]) Metformin hydrochloride 1000 MG Oral Tablet [place] ([facility]) Lisinopril 40 MG Oral Tablet [place] ([facility]) Linagliptin 5 MG Oral Tablet [Tradjenta] [place] ([facility]) Simvastatin 80 MG Oral Tablet [place] ([facility]) potassium chloride ER 10 mEq tablet,exte nded release(part/cryst) TAKE TWO TABLETS BY MOUTH ONCE DAILY [facility] [place] ([facility]) Potassium Chloride 10 MEQ Extended Release Oral Tablet [place] ([facility]) Omeprazole 20 MG Delayed Release Oral Capsule [place] ([facility]) Metformin hydrochloride 1000 MG Oral Tablet [place] ([facility]) Lisinopril 40 MG Oral Tablet [place] ([facility]) insulin detemir 100 UNT/ML Injectable Solution [Levemir] [place] ([facility]) Acetaminophen 325 MG / Hydrocodone Bitartrate 5 MG Oral Tablet [place] ([facility]) Hydrochlorothiazide 25 MG Oral Tablet [place] ([facility]) gabapentin 100 MG Oral Capsule [place] ([facility]) Furosemide 40 MG Oral Tablet [place] ([facility]) clopidogrel 75 MG Oral Tablet [place] ([facility]) Clindamycin 300 MG Oral Capsule [place] ([facility])
[2021-02-10 18:09] LABS: BASO # 0.1 10^3/uL (0.0-0.2); BASO % 1.5 % (0.0-1.0); EOS # 0.3 10^3/uL (0.0-0.5); EOS % 4.6 % (0.0-3.0); LYMPH # 2.1 10^3/uL (1.5-5.0); MEAN CORPUSCULAR HEMOGLOBIN 28.8 pg (27.0-33.0); MEAN CORPUSCULAR HGB CONC 32.5 g/dl (32.0-36.5); MEAN CORPUSCULAR VOLUME 88.5 fl (80.0-96.0); MONO # 0.6 10^3/uL (0.0-0.8); MONO % 8.3 % (2.0-8.0); NEUTROPHILS # 4.1 10^3/uL (1.5-8.5); NEUTROPHILS % 56.2 % (36.0-66.0); PLATELET COUNT, AUTOMATED 278 10^3/uL (150-450); RED BLOOD COUNT 4.52 10^6/uL (4.30-6.10); WHITE BLOOD COUNT 7.2 10^3/uL (4.0-10.0)
[2021-02-10 18:15] VITALS: BP 224/99
[2021-02-10 19:06] LABS: ALBUMIN 1.9 GM/DL (3.2-5.2); ALT/SGPT 10 U/L (12-78); BILIRUBIN,DIRECT < 0.1 MG/DL (0.0-0.2); BILIRUBIN,TOTAL 0.2 MG/DL (0.2-1.0); BLOOD UREA NITROGEN 18 MG/DL (7-18); CALCIUM LEVEL 8.6 MG/DL (8.8-10.2); CARBON DIOXIDE LEVEL 28 MEQ/L (21-32); CHLORIDE LEVEL 106 MEQ/L (98-107); CK-MB VALUE MASS 3.3 NG/ML (<3.6); CPK CREATINE PHOSPHOKINASE 61 U/L (39-308); CREATININE FOR GFR 1.63 MG/DL (0.70-1.30); GLOMERULAR FILTRATION RATE 44.6 (>42); GLUCOSE, FASTING 301 MG/DL (70-100); MB/CK RELATIVE INDEX 5.41 (< OR =4); NT-PRO BNP 8607 PG/ML (<125); POTASSIUM SERUM 4.3 MEQ/L (3.5-5.1); SODIUM LEVEL 141 MEQ/L (136-145); THYROXINE (T4) 8.7 UG/DL (4.5-12.0); TOTAL PROTEIN 6.2 GM/DL (6.4-8.2); TROPONIN I < 0.02 NG/ML (< 0.10)
[2021-02-10 19:33] VITALS: BP 194/85
--- NOTE | 2021-02-11 19:02 | ECGEPIP ---
[facility] - ED Test Date: 2021-02-10 Pat Name: OLAF SHIELDS Department: Room: - Gender: Male [employer]: ED : 1950 Requested By: ZAYDA KABA Order Number: [id number] Reading MD: Mary Carmen Orellana Measurements Intervals [place] Rate: 66 P: 50 ME: 160 QRS: 31 QRSD: 114 T: 187 QT: 428 QTc: 448 Interpretive Statements Normal sinus rhythm ST & T wave abnormality, consider ischemia increased rate 10/27/20 Electronically Signed on 02-11-2021 19:02:29 EDT by Mary Carmen Orellana
== END 2021-02-10 20:32 | disposition left against medical advice (07) ==
LOC: M ED 16:01 → EDBD 16:01 → M ED 20:32
DX: I50.9 Heart failure, unspecified (principal); Z53.9 Procedure and treatment not carried out, unspecified reason; J90 Pleural effusion, not elsewhere classified; E11.9 Type 2 diabetes mellitus without complications; I10 Essential (primary) hypertension; J45.909 Unspecified asthma, uncomplicated; E78.5 Hyperlipidemia, unspecified; K21.9 Gastro-esophageal reflux disease without esophagitis; Z87.01 Personal history of pneumonia (recurrent); Z79.4 Long term (current) use of insulin; Z79.899 Other long term (current) drug therapy
CPT/HCPCS: 71045; 80048; 80076; 82550; 82553; 83880; 84436; 84443; 84484; 85025; 87798; 93005; 93041; 94760; 96374; 96375; 99285; J0360; J1940

== ENCOUNTER 2021-04-23 14:45 | Inpatient (IN) | payer MEDICARE, OTHER ==
[~2021-04-23] VITALS: Ht 175.3 cm; Wt 65.5 kg
[2021-04-23] MEDS: ASPIRIN 81 MG CHEW TABLET PO SCH (09:00)
[~2021-04-23 14:45] MED LIST changes: +POTA-151 PO; -POTA20TA6 PO
[2021-04-23 16:25] LABS: BASO # 0.1 10^3/uL (0.0-0.2); BASO % 1.6 % (0.0-1.0); EOS # 0.3 10^3/uL (0.0-0.5); EOS % 4.7 % (0.0-3.0); HEMATOCRIT 37.6 % (42.0-52.0); HEMOGLOBIN 11.7 g/dl (13.5-17.5); LYMPH # 1.8 10^3/uL (1.5-5.0); LYMPH % 26.2 % (24.0-44.0); MEAN CORPUSCULAR HEMOGLOBIN 27.8 pg (27.0-33.0); MEAN CORPUSCULAR HGB CONC 31.1 g/dl (32.0-36.5); MEAN CORPUSCULAR VOLUME 89.3 fl (80.0-96.0); MONO # 0.6 10^3/uL (0.0-0.8); MONO % 9.3 % (2.0-8.0); NEUTROPHILS % 57.9 % (36.0-66.0); PLATELET COUNT, AUTOMATED 237 10^3/uL (150-450); RED BLOOD COUNT 4.21 10^6/uL (4.30-6.10); WHITE BLOOD COUNT 6.9 10^3/uL (4.0-10.0)
[2021-04-23 16:36] LABS: OSMOLALITY SERUM 310 MOSM/KG (280-301)
[2021-04-23 16:53] LABS: ALBUMIN 2.2 GM/DL (3.2-5.2); ALT/SGPT 15 U/L (12-78); BILIRUBIN,DIRECT < 0.1 MG/DL (0.0-0.2); BILIRUBIN,TOTAL 0.2 MG/DL (0.2-1.0); BLOOD UREA NITROGEN 25 MG/DL (7-18); CALCIUM LEVEL 8.4 MG/DL (8.8-10.2); CARBON DIOXIDE LEVEL 25 MEQ/L (21-32); CHLORIDE LEVEL 110 MEQ/L (98-107); CREATININE FOR GFR 1.79 MG/DL (0.70-1.30); ETHYL ALCOHOL (ETHANOL) < 0.003 % (0.000-0.010); GLOMERULAR FILTRATION RATE 40.1 (>42); GLUCOSE, FASTING 310 MG/DL (70-100); POTASSIUM SERUM 4.3 MEQ/L (3.5-5.1); SODIUM LEVEL 142 MEQ/L (136-145); TOTAL PROTEIN 6.3 GM/DL (6.4-8.2)
[2021-04-23] MEDS ORDERED: cefTRIAXone SOD 2 GM in D5W MINI-BAG PLUS 50 ML IV ONE (17:30)
[2021-04-23] MEDS ORDERED: HOME MED LIST COMPLETE! XX SCH (18:50)
[2021-04-23] MEDS ORDERED: MOM 30ML SUSPENSION UDC PO PRN (19:05)
[2021-04-23] MEDS ORDERED: MAALOX 30 ML SUSP *UDC PO PRN (19:05)
[2021-04-23] MEDS ORDERED: DEXTROSE 50% 50 ML SYRINGE IV PRN (19:05)
[2021-04-23] MEDS ORDERED: GLUCOSE 4GM CHEW TABLET PO PRN (19:05)
[2021-04-23] MEDS ORDERED: GLUCAGON INJ 1MG VIAL SC PRN (19:05)
[2021-04-23] MEDS ORDERED: atenoloL 50 MG TAB PO ONE (19:10)
[2021-04-23] MEDS ORDERED: FUROSEMIDE 40MG/4ML VIAL (J1940) IV ONE (19:10)
[2021-04-23] MEDS ORDERED: **hydrALAZINE** 10 MG TAB PO PRN (19:10)
[2021-04-23] MEDS ORDERED: ISOVUE-370 76% 100ML VIAL As Ordered ONE (19:17)
[2021-04-23 19:26] LABS: NT-PRO BNP 10238 PG/ML (<125)
[2021-04-23 19:54] LABS: HEMOGLOBIN A1c 10.7 %
[2021-04-23 20:08] LABS: INR 1.08; PROTHROMBIN TIME 14.4 SECONDS (12.7-14.5)
[2021-04-23 20:09] LABS: PARTIAL THROMBOPLASTIN TIME 29.8 SECONDS (25.9-37.0)
[2021-04-23] MEDS ORDERED: LEVEMIR (INSULIN DETEMIR) 1 UNITS/0.01ML SC SCH (21:00)
[2021-04-23] MEDS: SIMVASTATIN 20 MG TAB PO SCH (23:39)
[2021-04-23] MEDS: DOCUSATE SODIUM 100MG CAPSULE PO SCH (23:39)
[2021-04-23] MEDS: NS 1,000 ML IV SCH (23:39)
[2021-04-23] MEDS: HumaLOG INSULIN (NovoLOG) PER UNIT SC SCH (23:50)
[2021-04-24] VITALS: BP 170/81
[2021-04-24] MEDS: DOXYCYCLINE HYCLATE 100MG TABLET PO SCH ×3 (00:22→21:59)
[2021-04-24 06:00] VITALS: BP 173/77
[2021-04-24 06:30] LABS: HEMATOCRIT 36.2 % (42.0-52.0); HEMOGLOBIN 11.4 g/dl (13.5-17.5); MEAN CORPUSCULAR HEMOGLOBIN 28.1 pg (27.0-33.0); MEAN CORPUSCULAR HGB CONC 31.5 g/dl (32.0-36.5); MEAN CORPUSCULAR VOLUME 89.2 fl (80.0-96.0); PLATELET COUNT, AUTOMATED 254 10^3/uL (150-450); RED BLOOD COUNT 4.06 10^6/uL (4.30-6.10); WHITE BLOOD COUNT 7.4 10^3/uL (4.0-10.0)
[2021-04-24 06:47] LABS: CALCIUM LEVEL 8.9 MG/DL (8.8-10.2); CREATININE FOR GFR 1.8 MG/DL (0.70-1.30); GLOMERULAR FILTRATION RATE 39.8 (>42); MAGNESIUM LEVEL 1.8 MG/DL (1.8-2.4); POTASSIUM SERUM 3.8 MEQ/L (3.5-5.1)
[2021-04-24] MEDS: NS 1,000 ML IV SCH (07:00)
[2021-04-24] MEDS: HumaLOG INSULIN (NovoLOG) PER UNIT SC SCH ×4 (07:30→21:00)
[2021-04-24] MEDS ORDERED: LEVEMIR (INSULIN DETEMIR) 1 UNITS/0.01ML SC SCH ×2 (09:00→21:00)
[2021-04-24] MEDS ORDERED: ENOXAPARIN 30MG/0.3ML SYRINGE (J1650 PER 10MG) SC SCH (09:00)
[2021-04-24] MEDS ORDERED: atenoloL 50 MG TAB PO SCH (09:00)
[2021-04-24] MEDS: ASPIRIN 81 MG CHEW TABLET PO SCH (09:15)
[2021-04-24] MEDS: DOCUSATE SODIUM 100MG CAPSULE PO SCH ×2 (09:15→21:58)
[2021-04-24] MEDS: ENOXAPARIN 40MG/0.4ML SYRINGE (J1650 PER 10MG) SC SCH (09:15)
[2021-04-24] MEDS: FUROSEMIDE 40 MG TAB PO SCH (09:19)
[2021-04-24] MEDS ORDERED: NITROGLYCERIN 0.4 MG SUBL TABLET SL PRN (12:40)
[2021-04-24 14:00] VITALS: BP 167/80
[2021-04-24 14:34] LABS: CK-MB VALUE MASS 2.1 NG/ML (<3.6); MB/CK RELATIVE INDEX 2.44 (< OR =4)
[2021-04-24] MEDS ORDERED: ALBUTEROL 90 MCG/ACT 8GM HFA INHALER INH PRN (16:40)
[2021-04-24] MEDS: cefTRIAXone SOD 1 GM in D5W MINI-BAG PLUS 50 ML IV SCH (18:47)
[2021-04-24] MEDS: SIMVASTATIN 20 MG TAB PO SCH (21:59)
[2021-04-24 22:00] VITALS: BP 164/75
[2021-04-25 06:00] VITALS: BP 180/75
[2021-04-25 06:12] LABS: HEMATOCRIT 34.2 % (42.0-52.0); HEMOGLOBIN 10.8 g/dl (13.5-17.5); MEAN CORPUSCULAR HEMOGLOBIN 28.3 pg (27.0-33.0); MEAN CORPUSCULAR HGB CONC 31.6 g/dl (32.0-36.5); MEAN CORPUSCULAR VOLUME 89.8 fl (80.0-96.0); PLATELET COUNT, AUTOMATED 224 10^3/uL (150-450); RED BLOOD COUNT 3.81 10^6/uL (4.30-6.10); WHITE BLOOD COUNT 6.5 10^3/uL (4.0-10.0)
[2021-04-25 06:29] LABS: CALCIUM LEVEL 8.5 MG/DL (8.8-10.2); CREATININE FOR GFR 1.6 MG/DL (0.70-1.30); GLOMERULAR FILTRATION RATE 45.6 (>42); POTASSIUM SERUM 3.2 MEQ/L (3.5-5.1)
[2021-04-25] MEDS: HumaLOG INSULIN (NovoLOG) PER UNIT SC SCH ×4 (07:30→20:15)
[2021-04-25] MEDS ORDERED: POTASSIUM CHLORIDE 10MEQ SR TABLET PO ONE (08:00)
[2021-04-25] MEDS: FUROSEMIDE 40 MG TAB PO SCH (09:14)
[2021-04-25] MEDS: DOXYCYCLINE HYCLATE 100MG TABLET PO SCH ×2 (09:14→21:37)
[2021-04-25] MEDS: ASPIRIN 81 MG CHEW TABLET PO SCH (09:14)
[2021-04-25] MEDS: ENOXAPARIN 40MG/0.4ML SYRINGE (J1650 PER 10MG) SC SCH (09:15)
[2021-04-25] MEDS: DOCUSATE SODIUM 100MG CAPSULE PO SCH ×2 (09:15→21:37)
[2021-04-25 14:00] VITALS: BP 171/74
[2021-04-25] MEDS ORDERED: LORazepam 2 MG/ML VIAL IV STA (15:19)
[2021-04-25] MEDS ORDERED: LORazepam 2 MG/ML VIAL As Ordered ONE (15:31)
[2021-04-25] MEDS: cefTRIAXone SOD 1 GM in D5W MINI-BAG PLUS 50 ML IV SCH (19:06)
[2021-04-25] MEDS: SIMVASTATIN 20 MG TAB PO SCH (21:37)
[2021-04-25 22:00] VITALS: BP 167/88
[2021-04-26 06:00] VITALS: BP 170/80
[2021-04-26 06:11] LABS: HEMATOCRIT 35.8 % (42.0-52.0); HEMOGLOBIN 11.1 g/dl (13.5-17.5); MEAN CORPUSCULAR VOLUME 90.2 fl (80.0-96.0); PLATELET COUNT, AUTOMATED 220 10^3/uL (150-450); RED BLOOD COUNT 3.97 10^6/uL (4.30-6.10); WHITE BLOOD COUNT 6.6 10^3/uL (4.0-10.0)
[2021-04-26 06:36] LABS: CALCIUM LEVEL 8.4 MG/DL (8.8-10.2); CREATININE FOR GFR 1.53 MG/DL (0.70-1.30); MAGNESIUM LEVEL 1.9 MG/DL (1.8-2.4); POTASSIUM SERUM 4.4 MEQ/L (3.5-5.1)
[2021-04-26] MEDS: DOXYCYCLINE HYCLATE 100MG TABLET PO SCH ×2 (09:22→21:16)
[2021-04-26] MEDS: ASPIRIN 81 MG CHEW TABLET PO SCH (09:22)
[2021-04-26] MEDS: HumaLOG INSULIN (NovoLOG) PER UNIT SC SCH ×4 (09:22→21:00)
[2021-04-26] MEDS: FUROSEMIDE 40 MG TAB PO SCH (09:22)
[2021-04-26] MEDS: DOCUSATE SODIUM 100MG CAPSULE PO SCH ×2 (09:22→21:16)
[2021-04-26] MEDS: ENOXAPARIN 40MG/0.4ML SYRINGE (J1650 PER 10MG) SC SCH (09:22)
[2021-04-26] MEDS ORDERED: LORazepam 2 MG/ML VIAL IV ONE (09:45)
[2021-04-26 14:00] VITALS: BP 172/83
[2021-04-26 15:27] VITALS: BP 175/79
[2021-04-26] MEDS ORDERED: FUROSEMIDE 40MG/4ML VIAL (J1940) IV ONE (16:00)
[2021-04-26] MEDS: CEFDINIR 300 MG CAP (OMNICEF) PO SCH (21:16)
[2021-04-26] MEDS: SIMVASTATIN 20 MG TAB PO SCH (21:16)
[2021-04-26 22:00] VITALS: BP 173/79
[2021-04-27 05:47] VITALS: BP 150/66
[2021-04-27] MEDS ORDERED: FUROSEMIDE 40MG/4ML VIAL (J1940) IV ONE (06:00)
[2021-04-27 07:46] LABS: HEMATOCRIT 37.6 % (42.0-52.0); HEMOGLOBIN 11.8 g/dl (13.5-17.5); MEAN CORPUSCULAR HGB CONC 31.4 g/dl (32.0-36.5); MEAN CORPUSCULAR VOLUME 89.3 fl (80.0-96.0); PLATELET COUNT, AUTOMATED 252 10^3/uL (150-450); RED BLOOD COUNT 4.21 10^6/uL (4.30-6.10); WHITE BLOOD COUNT 6.3 10^3/uL (4.0-10.0)
[2021-04-27 08:12] LABS: CALCIUM LEVEL 8.6 MG/DL (8.8-10.2); CREATININE FOR GFR 1.62 MG/DL (0.70-1.30); GLOMERULAR FILTRATION RATE 44.9 (>42); MAGNESIUM LEVEL 1.9 MG/DL (1.8-2.4); POTASSIUM SERUM 4.2 MEQ/L (3.5-5.1)
[2021-04-27] MEDS: HumaLOG INSULIN (NovoLOG) PER UNIT SC SCH ×4 (08:34→20:59)
[2021-04-27] MEDS: DOXYCYCLINE HYCLATE 100MG TABLET PO SCH ×2 (08:35→22:18)
[2021-04-27] MEDS: ENOXAPARIN 40MG/0.4ML SYRINGE (J1650 PER 10MG) SC SCH (08:35)
[2021-04-27] MEDS: ASPIRIN 81 MG CHEW TABLET PO SCH (08:35)
[2021-04-27] MEDS: CEFDINIR 300 MG CAP (OMNICEF) PO SCH ×2 (08:35→22:18)
[2021-04-27] MEDS: DOCUSATE SODIUM 100MG CAPSULE PO SCH ×2 (08:35→22:18)
[2021-04-27] MEDS: FUROSEMIDE 40 MG TAB PO SCH (08:36)
[2021-04-27 14:00] VITALS: BP 183/81
[2021-04-27 22:00] VITALS: BP 170/79
[2021-04-27] MEDS: SIMVASTATIN 20 MG TAB PO SCH (22:18)
[2021-04-28 06:00] VITALS: BP 181/83
[2021-04-28 06:42] LABS: HEMATOCRIT 36.4 % (42.0-52.0); HEMOGLOBIN 11.7 g/dl (13.5-17.5); MEAN CORPUSCULAR HEMOGLOBIN 27.9 pg (27.0-33.0); MEAN CORPUSCULAR HGB CONC 32.1 g/dl (32.0-36.5); MEAN CORPUSCULAR VOLUME 86.9 fl (80.0-96.0); PLATELET COUNT, AUTOMATED 250 10^3/uL (150-450); RED BLOOD COUNT 4.19 10^6/uL (4.30-6.10)
[2021-04-28 07:10] LABS: CALCIUM LEVEL 8.6 MG/DL (8.8-10.2); CREATININE FOR GFR 1.77 MG/DL (0.70-1.30); GLOMERULAR FILTRATION RATE 40.6 (>42); MAGNESIUM LEVEL 1.9 MG/DL (1.8-2.4); POTASSIUM SERUM 4.2 MEQ/L (3.5-5.1)
[2021-04-28] MEDS: HumaLOG INSULIN (NovoLOG) PER UNIT SC SCH ×4 (07:30→21:00)
[2021-04-28] MEDS: ASPIRIN 81 MG CHEW TABLET PO SCH (10:45)
[2021-04-28] MEDS: DOCUSATE SODIUM 100MG CAPSULE PO SCH ×2 (10:47→21:12)
[2021-04-28] MEDS: FUROSEMIDE 40 MG TAB PO SCH (10:48)
[2021-04-28] MEDS: CEFDINIR 300 MG CAP (OMNICEF) PO SCH ×2 (10:50→21:12)
[2021-04-28] MEDS: DOXYCYCLINE HYCLATE 100MG TABLET PO SCH ×2 (10:51→21:12)
[2021-04-28] MEDS: ENOXAPARIN 40MG/0.4ML SYRINGE (J1650 PER 10MG) SC SCH (10:52)
[2021-04-28 14:00] VITALS: BP 165/71
[2021-04-28 14:39] VITALS: BP 171/71
[2021-04-28] MEDS: SIMVASTATIN 20 MG TAB PO SCH (21:12)
[2021-04-28 22:00] VITALS: BP 165/69
[2021-04-29 06:00] VITALS: BP 166/77
[2021-04-29] MEDS: DOCUSATE SODIUM 100MG CAPSULE PO SCH ×2 (08:22→20:18)
[2021-04-29] MEDS: ASPIRIN 81 MG CHEW TABLET PO SCH (08:22)
[2021-04-29] MEDS: FUROSEMIDE 40 MG TAB PO SCH (08:22)
[2021-04-29] MEDS: ENOXAPARIN 40MG/0.4ML SYRINGE (J1650 PER 10MG) SC SCH (08:22)
[2021-04-29] MEDS: HumaLOG INSULIN (NovoLOG) PER UNIT SC SCH ×3 (08:23→17:30)
[2021-04-29 08:43] LABS: HEMATOCRIT 37.1 % (42.0-52.0); HEMOGLOBIN 11.9 g/dl (13.5-17.5); MEAN CORPUSCULAR HEMOGLOBIN 28.1 pg (27.0-33.0); MEAN CORPUSCULAR HGB CONC 32.1 g/dl (32.0-36.5); MEAN CORPUSCULAR VOLUME 87.7 fl (80.0-96.0); PLATELET COUNT, AUTOMATED 247 10^3/uL (150-450); RED BLOOD COUNT 4.23 10^6/uL (4.30-6.10); WHITE BLOOD COUNT 7.3 10^3/uL (4.0-10.0)
[2021-04-29] MEDS ORDERED: LEVEMIR (INSULIN DETEMIR) 1 UNITS/0.01ML SC SCH (09:00)
[2021-04-29 09:11] LABS: CREATININE FOR GFR 1.6 MG/DL (0.70-1.30); GLOMERULAR FILTRATION RATE 45.6 (>42); MAGNESIUM LEVEL 1.9 MG/DL (1.8-2.4); POTASSIUM SERUM 4.5 MEQ/L (3.5-5.1)
[2021-04-29] MEDS: SIMVASTATIN 20 MG TAB PO SCH (20:18)
[2021-04-30 05:46] VITALS: BP 170/72
[2021-04-30] MEDS: ASPIRIN 81 MG CHEW TABLET PO SCH (10:12)
[2021-04-30] MEDS: LEVEMIR (INSULIN DETEMIR) 1 UNITS/0.01ML SC SCH (10:12)
[2021-04-30] MEDS: DOCUSATE SODIUM 100MG CAPSULE PO SCH ×2 (10:12→21:38)
[2021-04-30] MEDS: FUROSEMIDE 40 MG TAB PO SCH (10:12)
[2021-04-30] MEDS: ENOXAPARIN 40MG/0.4ML SYRINGE (J1650 PER 10MG) SC SCH (10:13)
[2021-04-30] MEDS: SIMVASTATIN 20 MG TAB PO SCH (21:38)
[2021-05-01 06:00] VITALS: BP 165/70
[2021-05-01] MEDS: DOCUSATE SODIUM 100MG CAPSULE PO SCH ×2 (09:40→21:47)
[2021-05-01] MEDS: LEVEMIR (INSULIN DETEMIR) 1 UNITS/0.01ML SC SCH (09:40)
[2021-05-01] MEDS: ASPIRIN 81 MG CHEW TABLET PO SCH (09:40)
[2021-05-01] MEDS: FUROSEMIDE 40 MG TAB PO SCH (09:40)
[2021-05-01] MEDS: ENOXAPARIN 40MG/0.4ML SYRINGE (J1650 PER 10MG) SC SCH (09:41)
[2021-05-01] MEDS: SIMVASTATIN 20 MG TAB PO SCH (21:48)
[2021-05-01] MEDS: ACETAMINOPHEN TAB 650MG DOSE (2X325MG) PO PRN (21:49)
[2021-05-02 08:10] VITALS: BP 163/71
[2021-05-02] MEDS: ENOXAPARIN 40MG/0.4ML SYRINGE (J1650 PER 10MG) SC SCH (08:11)
[2021-05-02] MEDS: DOCUSATE SODIUM 100MG CAPSULE PO SCH ×2 (08:12→20:03)
[2021-05-02] MEDS: FUROSEMIDE 40 MG TAB PO SCH (08:12)
[2021-05-02] MEDS: ASPIRIN 81 MG CHEW TABLET PO SCH (08:12)
[2021-05-02] MEDS: LEVEMIR (INSULIN DETEMIR) 1 UNITS/0.01ML SC SCH (08:13)
[2021-05-02 10:53] LABS: HEMOGLOBIN 12.4 g/dl (13.5-17.5); MEAN CORPUSCULAR HEMOGLOBIN 27.8 pg (27.0-33.0); MEAN CORPUSCULAR HGB CONC 31.8 g/dl (32.0-36.5); MEAN CORPUSCULAR VOLUME 87.4 fl (80.0-96.0); PLATELET COUNT, AUTOMATED 224 10^3/uL (150-450); RED BLOOD COUNT 4.46 10^6/uL (4.30-6.10); WHITE BLOOD COUNT 7.4 10^3/uL (4.0-10.0)
[2021-05-02 11:21] LABS: CALCIUM LEVEL 8.9 MG/DL (8.8-10.2); CREATININE FOR GFR 1.65 MG/DL (0.70-1.30); POTASSIUM SERUM 4.2 MEQ/L (3.5-5.1)
[2021-05-02] MEDS: SIMVASTATIN 20 MG TAB PO SCH (20:03)
[2021-05-02 21:00] VITALS: BP 141/51
[2021-05-03 05:08] VITALS: BP 145/52
[2021-05-03] MEDS: ENOXAPARIN 40MG/0.4ML SYRINGE (J1650 PER 10MG) SC SCH (09:16)
[2021-05-03] MEDS: LEVEMIR (INSULIN DETEMIR) 1 UNITS/0.01ML SC SCH (09:16)
[2021-05-03] MEDS: DOCUSATE SODIUM 100MG CAPSULE PO SCH ×2 (09:17→20:20)
[2021-05-03] MEDS: ASPIRIN 81 MG CHEW TABLET PO SCH (09:17)
[2021-05-03] MEDS: FUROSEMIDE 40 MG TAB PO SCH (09:17)
[2021-05-03] MEDS: SIMVASTATIN 20 MG TAB PO SCH (20:20)
[2021-05-04 05:46] VITALS: BP 157/59
[2021-05-04] MEDS: ASPIRIN 81 MG CHEW TABLET PO SCH (08:31)
[2021-05-04] MEDS: ENOXAPARIN 40MG/0.4ML SYRINGE (J1650 PER 10MG) SC SCH (08:31)
[2021-05-04] MEDS: FUROSEMIDE 40 MG TAB PO SCH (08:31)
[2021-05-04] MEDS: DOCUSATE SODIUM 100MG CAPSULE PO SCH ×2 (08:31→21:16)
[2021-05-04] MEDS: LEVEMIR (INSULIN DETEMIR) 1 UNITS/0.01ML SC SCH (08:32)
[2021-05-04] MEDS: SIMVASTATIN 20 MG TAB PO SCH (21:16)
[2021-05-05 06:15] VITALS: BP 153/62
[2021-05-05] MEDS: LEVEMIR (INSULIN DETEMIR) 1 UNITS/0.01ML SC SCH (08:00)
[2021-05-05] MEDS: DOCUSATE SODIUM 100MG CAPSULE PO SCH ×2 (08:03→21:19)
[2021-05-05] MEDS: ASPIRIN 81 MG CHEW TABLET PO SCH (08:03)
[2021-05-05] MEDS: FUROSEMIDE 40 MG TAB PO SCH (08:03)
[2021-05-05] MEDS: ENOXAPARIN 40MG/0.4ML SYRINGE (J1650 PER 10MG) SC SCH (08:05)
[2021-05-05 11:11] LABS: HEMATOCRIT 39.1 % (42.0-52.0); HEMOGLOBIN 12.4 g/dl (13.5-17.5); MEAN CORPUSCULAR HEMOGLOBIN 27.7 pg (27.0-33.0); MEAN CORPUSCULAR HGB CONC 31.7 g/dl (32.0-36.5); MEAN CORPUSCULAR VOLUME 87.5 fl (80.0-96.0); PLATELET COUNT, AUTOMATED 256 10^3/uL (150-450); RED BLOOD COUNT 4.47 10^6/uL (4.30-6.10); WHITE BLOOD COUNT 8.1 10^3/uL (4.0-10.0)
[2021-05-05 11:39] LABS: CALCIUM LEVEL 8.9 MG/DL (8.8-10.2); CREATININE FOR GFR 1.79 MG/DL (0.70-1.30); GLOMERULAR FILTRATION RATE 40.1 (>42); POTASSIUM SERUM 4.3 MEQ/L (3.5-5.1)
[2021-05-05] MEDS: ACETAMINOPHEN TAB 650MG DOSE (2X325MG) PO PRN (21:19)
[2021-05-05] MEDS: SIMVASTATIN 20 MG TAB PO SCH (21:21)
[2021-05-06 06:00] VITALS: BP 132/56
[2021-05-06] MEDS: DOCUSATE SODIUM 100MG CAPSULE PO SCH ×2 (08:48→21:21)
[2021-05-06] MEDS: ASPIRIN 81 MG CHEW TABLET PO SCH (08:48)
[2021-05-06] MEDS: FUROSEMIDE 40 MG TAB PO SCH (08:49)
[2021-05-06] MEDS: LEVEMIR (INSULIN DETEMIR) 1 UNITS/0.01ML SC SCH (08:50)
[2021-05-06] MEDS: ENOXAPARIN 40MG/0.4ML SYRINGE (J1650 PER 10MG) SC SCH (08:50)
[2021-05-06 09:21] LABS: BASO # 0.1 10^3/uL (0.0-0.2); BASO % 1.4 % (0.0-1.0); EOS # 0.4 10^3/uL (0.0-0.5); EOS % 4.5 % (0.0-3.0); HEMATOCRIT 39.4 % (42.0-52.0); HEMOGLOBIN 12.3 g/dl (13.5-17.5); LYMPH # 1.8 10^3/uL (1.5-5.0); LYMPH % 22.8 % (24.0-44.0); MEAN CORPUSCULAR HEMOGLOBIN 27.7 pg (27.0-33.0); MEAN CORPUSCULAR HGB CONC 31.2 g/dl (32.0-36.5); MEAN CORPUSCULAR VOLUME 88.7 fl (80.0-96.0); MONO # 0.7 10^3/uL (0.0-0.8); NEUTROPHILS # 4.8 10^3/uL (1.5-8.5); NEUTROPHILS % 61.9 % (36.0-66.0); PLATELET COUNT, AUTOMATED 202 10^3/uL (150-450); RED BLOOD COUNT 4.44 10^6/uL (4.30-6.10); WHITE BLOOD COUNT 7.8 10^3/uL (4.0-10.0)
[2021-05-06 09:51] LABS: CALCIUM LEVEL 8.9 MG/DL (8.8-10.2); CREATININE FOR GFR 1.77 MG/DL (0.70-1.30); GLOMERULAR FILTRATION RATE 40.6 (>42); POTASSIUM SERUM 4.2 MEQ/L (3.5-5.1)
[2021-05-06] MEDS ORDERED: HEPARIN SOD (PORCINE) 5000UNITS/ML 1ML VIAL/SYRINGE SQ SCH (18:25)
[2021-05-06] MEDS: SIMVASTATIN 20 MG TAB PO SCH (21:22)
[2021-05-07 05:30] VITALS: BP 138/55
[2021-05-07] MEDS: ACETAMINOPHEN TAB 650MG DOSE (2X325MG) PO PRN (05:31)
[2021-05-07] MEDS: LEVEMIR (INSULIN DETEMIR) 1 UNITS/0.01ML SC SCH (08:12)
[2021-05-07] MEDS: ENOXAPARIN 40MG/0.4ML SYRINGE (J1650 PER 10MG) SC SCH (08:13)
[2021-05-07] MEDS: FUROSEMIDE 40 MG TAB PO SCH (08:13)
[2021-05-07] MEDS: DOCUSATE SODIUM 100MG CAPSULE PO SCH ×2 (08:13→21:35)
[2021-05-07] MEDS: ASPIRIN 81 MG CHEW TABLET PO SCH (08:13)
[2021-05-07] MEDS: SIMVASTATIN 20 MG TAB PO SCH (21:35)
[2021-05-08] MEDS: FUROSEMIDE 40 MG TAB PO SCH (09:01)
[2021-05-08] MEDS: ASPIRIN 81 MG CHEW TABLET PO SCH (09:02)
[2021-05-08] MEDS: DOCUSATE SODIUM 100MG CAPSULE PO SCH ×2 (09:02→21:19)
[2021-05-08] MEDS: ENOXAPARIN 40MG/0.4ML SYRINGE (J1650 PER 10MG) SC SCH (09:02)
[2021-05-08] MEDS: LEVEMIR (INSULIN DETEMIR) 1 UNITS/0.01ML SC SCH (09:04)
[2021-05-08 09:05] VITALS: BP 142/63
[2021-05-08] MEDS: SIMVASTATIN 20 MG TAB PO SCH (21:19)
[2021-05-09 07:09] VITALS: BP 126/56
[2021-05-09] MEDS: LEVEMIR (INSULIN DETEMIR) 1 UNITS/0.01ML SC SCH (10:14)
[2021-05-09] MEDS: FUROSEMIDE 40 MG TAB PO SCH (10:20)
[2021-05-09] MEDS: ASPIRIN 81 MG CHEW TABLET PO SCH (10:20)
[2021-05-09] MEDS: DOCUSATE SODIUM 100MG CAPSULE PO SCH ×2 (10:20→22:24)
[2021-05-09] MEDS: ENOXAPARIN 40MG/0.4ML SYRINGE (J1650 PER 10MG) SC SCH (10:21)
[2021-05-09 11:49] LABS: HEMATOCRIT 36.4 % (42.0-52.0); HEMOGLOBIN 11.7 g/dl (13.5-17.5); MEAN CORPUSCULAR HEMOGLOBIN 27.8 pg (27.0-33.0); MEAN CORPUSCULAR HGB CONC 32.1 g/dl (32.0-36.5); MEAN CORPUSCULAR VOLUME 86.5 fl (80.0-96.0); PLATELET COUNT, AUTOMATED 285 10^3/uL (150-450); RED BLOOD COUNT 4.21 10^6/uL (4.30-6.10); WHITE BLOOD COUNT 7.4 10^3/uL (4.0-10.0)
[2021-05-09 12:28] LABS: CALCIUM LEVEL 9.1 MG/DL (8.8-10.2); CREATININE FOR GFR 1.83 MG/DL (0.70-1.30); POTASSIUM SERUM 4.1 MEQ/L (3.5-5.1)
[2021-05-09] MEDS: SIMVASTATIN 20 MG TAB PO SCH (22:25)
[2021-05-10 06:00] VITALS: BP 127/61
[2021-05-10] MEDS: DOCUSATE SODIUM 100MG CAPSULE PO SCH ×2 (08:32→20:53)
[2021-05-10] MEDS: LEVEMIR (INSULIN DETEMIR) 1 UNITS/0.01ML SC SCH (08:32)
[2021-05-10] MEDS: ASPIRIN 81 MG CHEW TABLET PO SCH (08:32)
[2021-05-10] MEDS: ENOXAPARIN 40MG/0.4ML SYRINGE (J1650 PER 10MG) SC SCH (08:33)
[2021-05-10] MEDS: FUROSEMIDE 40 MG TAB PO SCH (08:33)
[2021-05-10] MEDS: SIMVASTATIN 20 MG TAB PO SCH (20:53)
[2021-05-11 05:27] VITALS: BP 145/59
[2021-05-11] MEDS: DOCUSATE SODIUM 100MG CAPSULE PO SCH ×2 (08:24→20:32)
[2021-05-11] MEDS: ASPIRIN 81 MG CHEW TABLET PO SCH (08:24)
[2021-05-11] MEDS: FUROSEMIDE 40 MG TAB PO SCH (08:25)
[2021-05-11] MEDS: LEVEMIR (INSULIN DETEMIR) 1 UNITS/0.01ML SC SCH (08:26)
[2021-05-11] MEDS: ENOXAPARIN 40MG/0.4ML SYRINGE (J1650 PER 10MG) SC SCH (08:26)
[2021-05-11] MEDS: SIMVASTATIN 20 MG TAB PO SCH (20:32)
[2021-05-12 06:00] VITALS: BP 145/76
[2021-05-12] MEDS: ASPIRIN 81 MG CHEW TABLET PO SCH (08:20)
[2021-05-12] MEDS: DOCUSATE SODIUM 100MG CAPSULE PO SCH ×2 (08:20→20:19)
[2021-05-12] MEDS: ENOXAPARIN 40MG/0.4ML SYRINGE (J1650 PER 10MG) SC SCH (08:20)
[2021-05-12] MEDS: FUROSEMIDE 40 MG TAB PO SCH (08:20)
[2021-05-12] MEDS: LEVEMIR (INSULIN DETEMIR) 1 UNITS/0.01ML SC SCH (09:12)
[2021-05-12 11:41] LABS: HEMATOCRIT 37.7 % (42.0-52.0); HEMOGLOBIN 11.8 g/dl (13.5-17.5); MEAN CORPUSCULAR HEMOGLOBIN 28.2 pg (27.0-33.0); MEAN CORPUSCULAR HGB CONC 31.3 g/dl (32.0-36.5); PLATELET COUNT, AUTOMATED 298 10^3/uL (150-450); RED BLOOD COUNT 4.19 10^6/uL (4.30-6.10); WHITE BLOOD COUNT 7.9 10^3/uL (4.0-10.0)
[2021-05-12 12:57] LABS: CALCIUM LEVEL 8.9 MG/DL (8.8-10.2); CREATININE FOR GFR 1.69 MG/DL (0.70-1.30); GLOMERULAR FILTRATION RATE 42.8 (>42); POTASSIUM SERUM 4.1 MEQ/L (3.5-5.1)
[2021-05-12] MEDS: SIMVASTATIN 20 MG TAB PO SCH (20:20)
[2021-05-13 05:15] VITALS: BP 141/49
[2021-05-13] MEDS: DOCUSATE SODIUM 100MG CAPSULE PO SCH ×2 (09:21→20:26)
[2021-05-13] MEDS: FUROSEMIDE 40 MG TAB PO SCH (09:21)
[2021-05-13] MEDS: ENOXAPARIN 40MG/0.4ML SYRINGE (J1650 PER 10MG) SC SCH (09:21)
[2021-05-13] MEDS: LEVEMIR (INSULIN DETEMIR) 1 UNITS/0.01ML SC SCH (09:21)
[2021-05-13] MEDS: ASPIRIN 81 MG CHEW TABLET PO SCH (09:21)
[2021-05-13] MEDS: SIMVASTATIN 20 MG TAB PO SCH (20:27)
[2021-05-14 06:29] VITALS: BP 132/55
[2021-05-14] MEDS: ENOXAPARIN 40MG/0.4ML SYRINGE (J1650 PER 10MG) SC SCH (09:08)
[2021-05-14] MEDS: LEVEMIR (INSULIN DETEMIR) 1 UNITS/0.01ML SC SCH (09:08)
[2021-05-14] MEDS: DOCUSATE SODIUM 100MG CAPSULE PO SCH ×2 (09:08→20:08)
[2021-05-14] MEDS: ASPIRIN 81 MG CHEW TABLET PO SCH (09:08)
[2021-05-14] MEDS: FUROSEMIDE 40 MG TAB PO SCH (09:08)
[2021-05-14] MEDS: SIMVASTATIN 20 MG TAB PO SCH (20:08)
[2021-05-15 06:00] VITALS: BP 129/57
[2021-05-15] MEDS: DOCUSATE SODIUM 100MG CAPSULE PO SCH ×2 (08:25→19:53)
[2021-05-15] MEDS: ASPIRIN 81 MG CHEW TABLET PO SCH (08:25)
[2021-05-15] MEDS: LEVEMIR (INSULIN DETEMIR) 1 UNITS/0.01ML SC SCH (08:26)
[2021-05-15] MEDS: FUROSEMIDE 40 MG TAB PO SCH (08:26)
[2021-05-15] MEDS: ENOXAPARIN 40MG/0.4ML SYRINGE (J1650 PER 10MG) SC SCH (08:26)
[2021-05-15] MEDS: SIMVASTATIN 20 MG TAB PO SCH (19:53)
[2021-05-16 05:14] VITALS: BP 148/64
[2021-05-16] MEDS: ASPIRIN 81 MG CHEW TABLET PO SCH (08:26)
[2021-05-16] MEDS: FUROSEMIDE 40 MG TAB PO SCH (08:26)
[2021-05-16] MEDS: LEVEMIR (INSULIN DETEMIR) 1 UNITS/0.01ML SC SCH (08:26)
[2021-05-16] MEDS: ENOXAPARIN 40MG/0.4ML SYRINGE (J1650 PER 10MG) SC SCH (08:26)
[2021-05-16] MEDS: DOCUSATE SODIUM 100MG CAPSULE PO SCH ×2 (08:26→21:02)
[2021-05-16 10:45] LABS: HEMATOCRIT 35.7 % (42.0-52.0); HEMOGLOBIN 11.5 g/dl (13.5-17.5); MEAN CORPUSCULAR HEMOGLOBIN 27.6 pg (27.0-33.0); MEAN CORPUSCULAR HGB CONC 32.2 g/dl (32.0-36.5); MEAN CORPUSCULAR VOLUME 85.6 fl (80.0-96.0); PLATELET COUNT, AUTOMATED 299 10^3/uL (150-450); RED BLOOD COUNT 4.17 10^6/uL (4.30-6.10); WHITE BLOOD COUNT 8.5 10^3/uL (4.0-10.0)
[2021-05-16 11:05] LABS: CALCIUM LEVEL 8.8 MG/DL (8.8-10.2); CREATININE FOR GFR 1.63 MG/DL (0.70-1.30); GLOMERULAR FILTRATION RATE 44.6 (>42); POTASSIUM SERUM 4.4 MEQ/L (3.5-5.1)
[2021-05-16] MEDS: SIMVASTATIN 20 MG TAB PO SCH (21:02)
[2021-05-17 06:00] VITALS: BP 147/69
[2021-05-17] MEDS: ASPIRIN 81 MG CHEW TABLET PO SCH (09:06)
[2021-05-17] MEDS: FUROSEMIDE 40 MG TAB PO SCH (09:07)
[2021-05-17] MEDS: LEVEMIR (INSULIN DETEMIR) 1 UNITS/0.01ML SC SCH (09:07)
[2021-05-17] MEDS: DOCUSATE SODIUM 100MG CAPSULE PO SCH ×2 (09:07→20:44)
[2021-05-17] MEDS: ENOXAPARIN 40MG/0.4ML SYRINGE (J1650 PER 10MG) SC SCH (09:08)
[2021-05-17] MEDS: SIMVASTATIN 20 MG TAB PO SCH (20:44)
[2021-05-18 06:00] VITALS: BP 151/59
[2021-05-18] MEDS: ASPIRIN 81 MG CHEW TABLET PO SCH (08:16)
[2021-05-18] MEDS: ENOXAPARIN 40MG/0.4ML SYRINGE (J1650 PER 10MG) SC SCH (08:16)
[2021-05-18] MEDS: FUROSEMIDE 40 MG TAB PO SCH (08:16)
[2021-05-18] MEDS: LEVEMIR (INSULIN DETEMIR) 1 UNITS/0.01ML SC SCH (08:16)
[2021-05-18] MEDS: DOCUSATE SODIUM 100MG CAPSULE PO SCH ×2 (08:16→21:06)
[2021-05-18] MEDS: SIMVASTATIN 20 MG TAB PO SCH (21:06)
[2021-05-19 06:30] VITALS: BP 160/70
[2021-05-19] MEDS: LEVEMIR (INSULIN DETEMIR) 1 UNITS/0.01ML SC SCH (09:21)
[2021-05-19] MEDS: ASPIRIN 81 MG CHEW TABLET PO SCH (09:21)
[2021-05-19] MEDS: ENOXAPARIN 40MG/0.4ML SYRINGE (J1650 PER 10MG) SC SCH (09:21)
[2021-05-19] MEDS: FUROSEMIDE 40 MG TAB PO SCH (09:21)
[2021-05-19] MEDS: DOCUSATE SODIUM 100MG CAPSULE PO SCH ×2 (09:21→20:06)
[2021-05-19 11:15] LABS: HEMOGLOBIN 11.5 g/dl (13.5-17.5); MEAN CORPUSCULAR HEMOGLOBIN 28.2 pg (27.0-33.0); MEAN CORPUSCULAR HGB CONC 32.9 g/dl (32.0-36.5); MEAN CORPUSCULAR VOLUME 85.8 fl (80.0-96.0); PLATELET COUNT, AUTOMATED 286 10^3/uL (150-450); RED BLOOD COUNT 4.08 10^6/uL (4.30-6.10); WHITE BLOOD COUNT 7.6 10^3/uL (4.0-10.0)
[2021-05-19 11:42] LABS: CALCIUM LEVEL 8.4 MG/DL (8.8-10.2); CREATININE FOR GFR 1.6 MG/DL (0.70-1.30); GLOMERULAR FILTRATION RATE 45.6 (>42); POTASSIUM SERUM 4.5 MEQ/L (3.5-5.1)
[2021-05-19] MEDS: SIMVASTATIN 20 MG TAB PO SCH (20:06)
[2021-05-19 21:00] VITALS: BP 166/62
[2021-05-20 06:00] VITALS: BP 161/67
[2021-05-20] MEDS: LEVEMIR (INSULIN DETEMIR) 1 UNITS/0.01ML SC SCH (07:54)
[2021-05-20] MEDS: FUROSEMIDE 40 MG TAB PO SCH (07:55)
[2021-05-20] MEDS: ASPIRIN 81 MG CHEW TABLET PO SCH (07:55)
[2021-05-20] MEDS: ENOXAPARIN 40MG/0.4ML SYRINGE (J1650 PER 10MG) SC SCH (07:55)
[2021-05-20] MEDS: DOCUSATE SODIUM 100MG CAPSULE PO SCH ×2 (07:55→20:43)
[2021-05-20] MEDS: SIMVASTATIN 20 MG TAB PO SCH (20:43)
[2021-05-21 06:00] VITALS: BP 159/70
[2021-05-21] MEDS: FUROSEMIDE 40 MG TAB PO SCH (08:00)
[2021-05-21] MEDS: DOCUSATE SODIUM 100MG CAPSULE PO SCH ×2 (08:00→20:06)
[2021-05-21] MEDS: ASPIRIN 81 MG CHEW TABLET PO SCH (08:00)
[2021-05-21] MEDS: LEVEMIR (INSULIN DETEMIR) 1 UNITS/0.01ML SC SCH (08:01)
[2021-05-21] MEDS: ENOXAPARIN 40MG/0.4ML SYRINGE (J1650 PER 10MG) SC SCH (08:01)
[2021-05-21] MEDS: SIMVASTATIN 20 MG TAB PO SCH (20:06)
[2021-05-22 06:00] VITALS: BP 159/66
[2021-05-22] MEDS: FUROSEMIDE 40 MG TAB PO SCH (08:05)
[2021-05-22] MEDS: DOCUSATE SODIUM 100MG CAPSULE PO SCH ×2 (08:05→20:18)
[2021-05-22] MEDS: ENOXAPARIN 40MG/0.4ML SYRINGE (J1650 PER 10MG) SC SCH (08:05)
[2021-05-22] MEDS: ASPIRIN 81 MG CHEW TABLET PO SCH (08:05)
[2021-05-22] MEDS: LEVEMIR (INSULIN DETEMIR) 1 UNITS/0.01ML SC SCH (08:06)
[2021-05-22] MEDS: SIMVASTATIN 20 MG TAB PO SCH (20:18)
[2021-05-23 06:00] VITALS: BP 151/66
[2021-05-23] MEDS: DOCUSATE SODIUM 100MG CAPSULE PO SCH ×2 (08:29→19:57)
[2021-05-23] MEDS: ASPIRIN 81 MG CHEW TABLET PO SCH (08:29)
[2021-05-23] MEDS: LEVEMIR (INSULIN DETEMIR) 1 UNITS/0.01ML SC SCH (08:29)
[2021-05-23] MEDS: ENOXAPARIN 40MG/0.4ML SYRINGE (J1650 PER 10MG) SC SCH (08:30)
[2021-05-23] MEDS: FUROSEMIDE 40 MG TAB PO SCH (08:30)
[2021-05-23 11:01] LABS: HEMATOCRIT 38.6 % (42.0-52.0); HEMOGLOBIN 12.4 g/dl (13.5-17.5); MEAN CORPUSCULAR HEMOGLOBIN 27.9 pg (27.0-33.0); MEAN CORPUSCULAR HGB CONC 32.1 g/dl (32.0-36.5); MEAN CORPUSCULAR VOLUME 86.7 fl (80.0-96.0); PLATELET COUNT, AUTOMATED 324 10^3/uL (150-450); RED BLOOD COUNT 4.45 10^6/uL (4.30-6.10); WHITE BLOOD COUNT 9.1 10^3/uL (4.0-10.0)
[2021-05-23 11:26] LABS: CALCIUM LEVEL 9.1 MG/DL (8.8-10.2); CREATININE FOR GFR 1.62 MG/DL (0.70-1.30); GLOMERULAR FILTRATION RATE 44.9 (>42); POTASSIUM SERUM 4.4 MEQ/L (3.5-5.1)
[2021-05-23] MEDS: SIMVASTATIN 20 MG TAB PO SCH (19:57)
[2021-05-24 06:00] VITALS: BP 134/73
[2021-05-24] MEDS: ENOXAPARIN 40MG/0.4ML SYRINGE (J1650 PER 10MG) SC SCH (08:03)
[2021-05-24] MEDS: FUROSEMIDE 40 MG TAB PO SCH (08:03)
[2021-05-24] MEDS: DOCUSATE SODIUM 100MG CAPSULE PO SCH ×2 (08:03→20:41)
[2021-05-24] MEDS: LEVEMIR (INSULIN DETEMIR) 1 UNITS/0.01ML SC SCH (08:03)
[2021-05-24] MEDS: ASPIRIN 81 MG CHEW TABLET PO SCH (08:03)
[2021-05-24] MEDS: SIMVASTATIN 20 MG TAB PO SCH (20:41)
[2021-05-25 06:00] VITALS: BP 136/54
[2021-05-25] MEDS: ENOXAPARIN 40MG/0.4ML SYRINGE (J1650 PER 10MG) SC SCH (08:17)
[2021-05-25] MEDS: LEVEMIR (INSULIN DETEMIR) 1 UNITS/0.01ML SC SCH (08:17)
[2021-05-25] MEDS: DOCUSATE SODIUM 100MG CAPSULE PO SCH ×2 (08:18→20:22)
[2021-05-25] MEDS: ASPIRIN 81 MG CHEW TABLET PO SCH (08:18)
[2021-05-25] MEDS: FUROSEMIDE 40 MG TAB PO SCH (08:18)
[2021-05-25] MEDS: SIMVASTATIN 20 MG TAB PO SCH (20:22)
[2021-05-26] MEDS: ENOXAPARIN 40MG/0.4ML SYRINGE (J1650 PER 10MG) SC SCH (08:55)
[2021-05-26] MEDS: LEVEMIR (INSULIN DETEMIR) 1 UNITS/0.01ML SC SCH (08:56)
[2021-05-26] MEDS: DOCUSATE SODIUM 100MG CAPSULE PO SCH ×2 (08:57→20:14)
[2021-05-26] MEDS: FUROSEMIDE 40 MG TAB PO SCH (08:57)
[2021-05-26] MEDS: ASPIRIN 81 MG CHEW TABLET PO SCH (08:57)
[2021-05-26 11:07] LABS: HEMATOCRIT 37.5 % (42.0-52.0); HEMOGLOBIN 11.9 g/dl (13.5-17.5); MEAN CORPUSCULAR HEMOGLOBIN 27.9 pg (27.0-33.0); MEAN CORPUSCULAR HGB CONC 31.7 g/dl (32.0-36.5); MEAN CORPUSCULAR VOLUME 87.8 fl (80.0-96.0); PLATELET COUNT, AUTOMATED 299 10^3/uL (150-450); RED BLOOD COUNT 4.27 10^6/uL (4.30-6.10); WHITE BLOOD COUNT 8.5 10^3/uL (4.0-10.0)
[2021-05-26 11:14] VITALS: BP 160/59
[2021-05-26 11:38] LABS: CREATININE FOR GFR 1.6 MG/DL (0.70-1.30); GLOMERULAR FILTRATION RATE 45.6 (>42); POTASSIUM SERUM 4.8 MEQ/L (3.5-5.1)
[2021-05-26] MEDS ORDERED: ALCOPAD25 TOP (14:09)
[2021-05-26] MEDS ORDERED: GLUC1TES2 XX (14:09)
[2021-05-26] MEDS ORDERED: LANC30MI XX (14:09)
[2021-05-26] MEDS ORDERED: INSU1MIS20 SC (14:09)
[2021-05-26] MEDS ORDERED: BLOOKIT21 XX (14:09)
[2021-05-26] MEDS ORDERED: PEN1MIS22 SC (14:09)
[2021-05-26] MEDS ORDERED: ASPI81CH8 PO (14:13)
[2021-05-26] MEDS ORDERED: INSUDET SC (14:13)
[2021-05-26] MEDS ORDERED: FURO40TA2 PO (14:13)
[2021-05-26] MEDS ORDERED: SIMV20TA22 PO (14:13)
[2021-05-26] MEDS ORDERED: COLA100C5 PO (14:13)
[2021-05-26] MEDS ORDERED: VENTAER INH (14:13)
[2021-05-26] MEDS ORDERED: AMLO1TAB25 PO (14:13)
[2021-05-26] MEDS ORDERED: LISI10TA22 PO (14:13)
[2021-05-26] MEDS: SIMVASTATIN 20 MG TAB PO SCH (20:14)
[2021-05-27 06:00] VITALS: BP 153/58
[2021-05-27 08:59] VITALS: BP 155/64
[2021-05-27] MEDS: DOCUSATE SODIUM 100MG CAPSULE PO SCH (08:59)
[2021-05-27] MEDS: FUROSEMIDE 40 MG TAB PO SCH (08:59)
[2021-05-27] MEDS: ASPIRIN 81 MG CHEW TABLET PO SCH (08:59)
[2021-05-27] MEDS: LEVEMIR (INSULIN DETEMIR) 1 UNITS/0.01ML SC SCH (09:00)
[2021-05-27] MEDS: ENOXAPARIN 40MG/0.4ML SYRINGE (J1650 PER 10MG) SC SCH (09:06)
== END 2021-05-27 12:11 | disposition home health service (06) | DRG 291 ==
LOC: M ED 14:45 → EDBD 14:45 → M ED INP 19:02 → EEVIPCON 19:02 → M MSPAV 22:40
PROVIDERS: ADMIT Family Medicine; ATTEND Internal Medicine
DX: I13.0 Hypertensive heart and chronic kidney disease with heart failure and stage 1 through stage 4 chronic kidney disease, or unspecified chronic kidney disease (principal); I50.43 Acute on chronic combined systolic (congestive) and diastolic (congestive) heart failure; J18.9 Pneumonia, unspecified organism; J90 Pleural effusion, not elsewhere classified; G31.84 Mild cognitive impairment of uncertain or unknown etiology; E78.5 Hyperlipidemia, unspecified; J45.909 Unspecified asthma, uncomplicated; E11.22 Type 2 diabetes mellitus with diabetic chronic kidney disease; Z95.828 Presence of other vascular implants and grafts; Z85.51 Personal history of malignant neoplasm of bladder; R47.81 Slurred speech; Z91.19 Patient's noncompliance with other medical treatment and regimen; N18.30 Chronic kidney disease, stage 3 unspecified; I16.0 Hypertensive urgency; I73.9 Peripheral vascular disease, unspecified; Z86.73 Personal history of transient ischemic attack (TIA), and cerebral infarction without residual deficits; E11.42 Type 2 diabetes mellitus with diabetic polyneuropathy; Z89.429 Acquired absence of other toe(s), unspecified side; Z20.822 Contact with and (suspected) exposure to COVID-19

== ENCOUNTER 2021-06-14 10:06 | Inpatient (IN) | payer MEDICARE, OTHER, MEDICAID ==
[~2021-06-14] VITALS: Ht 175.3 cm; Wt 75.8 kg
[~2021-06-14 10:06] MED LIST changes: +ALCOPAD25 TOP; +ASPI81CH8 PO; +BLOOKIT21 XX; +COLA100C5 PO; +GLUC1TES2 XX; +INSU1MIS20 SC; +LANC30MI XX; +LISI10TA22 PO; +PEN1MIS22 SC; +VENTAER INH
[2021-06-14 10:59] LABS: HEMATOCRIT 35.7 % (42.0-52.0); HEMOGLOBIN 11.8 g/dl (13.5-17.5); MEAN CORPUSCULAR HEMOGLOBIN 28.2 pg (27.0-33.0); MEAN CORPUSCULAR HGB CONC 33.1 g/dl (32.0-36.5); MEAN CORPUSCULAR VOLUME 85.4 fl (80.0-96.0); PLATELET COUNT, AUTOMATED 163 10^3/uL (150-450); RED BLOOD COUNT 4.18 10^6/uL (4.30-6.10); WHITE BLOOD COUNT 7.3 10^3/uL (4.0-10.0)
[2021-06-14 11:44] LABS: RSV AMPLIFICATION NEGATIVE (NEGATIVE)
[2021-06-14 12:17] LABS: AMPHETAMINES LEVEL URINE NEGATIVE (NEGATIVE); BARBITURATES URINE NEGATIVE (NEGATIVE); BENZODIAZEPINES URINE NEGATIVE (NEGATIVE); CANNABINOIDS URINE NEGATIVE (NEGATIVE); COCAINE METABOLITE URINE NEGATIVE (NEGATIVE); METHADONE URINE NEGATIVE (NEGATIVE); OPIATES URINE NEGATIVE (NEGATIVE); PHENCYCLIDINE URINE NEGATIVE (NEGATIVE)
[2021-06-14 12:17] LABS: ACETAMINOPHEN LEVEL < 2.0 UG/ML (10.0-30.0); ALBUMIN 2.5 GM/DL (3.2-5.2); ALT/SGPT 21 U/L (12-78); BILIRUBIN,DIRECT < 0.1 MG/DL (0.0-0.2); BILIRUBIN,TOTAL 0.2 MG/DL (0.2-1.0); BLOOD UREA NITROGEN 25 MG/DL (7-18); CALCIUM LEVEL 8.2 MG/DL (8.8-10.2); CARBON DIOXIDE LEVEL 28 MEQ/L (21-32); CHLORIDE LEVEL 104 MEQ/L (98-107); CREATININE FOR GFR 1.91 MG/DL (0.70-1.30); ETHYL ALCOHOL (ETHANOL) 0.004 % (0.000-0.010); GLOMERULAR FILTRATION RATE 37.2 (>42); GLUCOSE, FASTING 454 MG/DL (70-100); POTASSIUM SERUM 3.8 MEQ/L (3.5-5.1); SALICYLATE LEVEL < 1.7 MG/DL (5.0-30.0); SODIUM LEVEL 135 MEQ/L (136-145); TOTAL PROTEIN 6.3 GM/DL (6.4-8.2)
[2021-06-14] MEDS ORDERED: SIMV20TA22 PO (12:21)
[2021-06-14] MEDS ORDERED: INSUDET SC (12:21)
[2021-06-14] MEDS ORDERED: COLA100C5 PO (12:21)
[2021-06-14] MEDS ORDERED: FURO40TA2 PO (12:21)
[2021-06-14] MEDS ORDERED: VENTAER INH (12:21)
[2021-06-14] MEDS ORDERED: LISI10TA22 PO (12:21)
[2021-06-14] MEDS ORDERED: AMLO1TAB25 PO (12:21)
[2021-06-14] MEDS ORDERED: ASPI81CH33 PO (12:21)
[2021-06-14] MEDS ORDERED: MED REC COMMENT (12:23)
[2021-06-14] MEDS ORDERED: HOME MED LIST COMPLETE! XX SCH (12:25)
[2021-06-14] MEDS ORDERED: HumuLIN R (REGULAR) INSULIN (NovoLIN R) **100U/ML** PER UNIT IV ONE (12:50)
[2021-06-14] MEDS ORDERED: ALBUTEROL 90 MCG/ACT 8GM HFA INHALER INH PRN (13:25)
[2021-06-14] MEDS ORDERED: FUROSEMIDE 40 MG TAB PO SCH (13:25)
[2021-06-14] MEDS ORDERED: GLUCAGON INJ 1MG VIAL SC PRN (13:30)
[2021-06-14] MEDS ORDERED: DEXTROSE 50% 50 ML SYRINGE IV PRN (13:30)
[2021-06-14] MEDS ORDERED: GLUCOSE 4GM CHEW TABLET PO PRN (13:30)
[2021-06-14 14:21] LABS: OSMOLALITY SERUM 313 MOSM/KG (280-301)
[2021-06-14] MEDS: INSULIN LISPRO (NovoLOG) PER UNIT SC SCH ×2 (17:30→21:00)
[2021-06-14] MEDS ORDERED: ENOXAPARIN 40MG/0.4ML SYRINGE (J1650 PER 10MG) SC SCH (21:00)
[2021-06-14] MEDS: SIMVASTATIN 20 MG TAB PO SCH (21:00)
[2021-06-14] MEDS: HEPARIN SOD (PORCINE) 5000UNITS/ML 1ML VIAL/SYRINGE SQ SCH (21:00)
[2021-06-14] MEDS: DOCUSATE SODIUM 100MG CAPSULE PO SCH (21:00)
[2021-06-15 00:50] VITALS: BP 188/70
[2021-06-15 02:00] VITALS: BP 146/54
[2021-06-15 05:47] LABS: HEMATOCRIT 35.3 % (42.0-52.0); HEMOGLOBIN 11.7 g/dl (13.5-17.5); MEAN CORPUSCULAR HGB CONC 33.1 g/dl (32.0-36.5); MEAN CORPUSCULAR VOLUME 84.4 fl (80.0-96.0); PLATELET COUNT, AUTOMATED 143 10^3/uL (150-450); RED BLOOD COUNT 4.18 10^6/uL (4.30-6.10); WHITE BLOOD COUNT 6.2 10^3/uL (4.0-10.0)
[2021-06-15 06:00] VITALS: BP 144/69
[2021-06-15 06:16] LABS: CALCIUM LEVEL 8.4 MG/DL (8.8-10.2); CREATININE FOR GFR 1.51 MG/DL (0.70-1.30); GLOMERULAR FILTRATION RATE 48.7 (>42); MAGNESIUM LEVEL 1.7 MG/DL (1.8-2.4); POTASSIUM SERUM 4.1 MEQ/L (3.5-5.1)
[2021-06-15] MEDS: DOCUSATE SODIUM 100MG CAPSULE PO SCH ×2 (09:07→21:00)
[2021-06-15] MEDS: ASPIRIN 81 MG CHEW TABLET PO SCH (09:07)
[2021-06-15] MEDS: LEVEMIR (INSULIN DETEMIR) 1 UNITS/0.01ML SC SCH (09:08)
[2021-06-15] MEDS: HEPARIN SOD (PORCINE) 5000UNITS/ML 1ML VIAL/SYRINGE SQ SCH ×2 (09:08→21:00)
[2021-06-15] MEDS: FUROSEMIDE 40 MG TAB PO SCH (09:08)
[2021-06-15] MEDS: INSULIN LISPRO (NovoLOG) PER UNIT SC SCH ×4 (09:09→20:55)
[2021-06-15 14:00] VITALS: BP 140/70
[2021-06-15] MEDS ORDERED: MAGNESIUM OXIDE 400MG TAB (MAG-OX) PO ONE (15:15)
[2021-06-15] MEDS: SIMVASTATIN 20 MG TAB PO SCH (21:00)
[2021-06-15 22:00] VITALS: BP 144/74
[2021-06-16 06:00] VITALS: BP 154/76
[2021-06-16 07:50] LABS: HEMOGLOBIN 12.2 g/dl (13.5-17.5); MEAN CORPUSCULAR HEMOGLOBIN 27.8 pg (27.0-33.0); MEAN CORPUSCULAR VOLUME 84.3 fl (80.0-96.0); PLATELET COUNT, AUTOMATED 167 10^3/uL (150-450); RED BLOOD COUNT 4.39 10^6/uL (4.30-6.10); WHITE BLOOD COUNT 6.4 10^3/uL (4.0-10.0)
[2021-06-16 08:20] LABS: CREATININE FOR GFR 1.52 MG/DL (0.70-1.30); GLOMERULAR FILTRATION RATE 48.4 (>42); POTASSIUM SERUM 4.1 MEQ/L (3.5-5.1)
[2021-06-16] MEDS: ASPIRIN 81 MG CHEW TABLET PO SCH (08:38)
[2021-06-16] MEDS: DOCUSATE SODIUM 100MG CAPSULE PO SCH ×2 (08:40→20:57)
[2021-06-16] MEDS: HEPARIN SOD (PORCINE) 5000UNITS/ML 1ML VIAL/SYRINGE SQ SCH ×2 (08:41→20:57)
[2021-06-16] MEDS: INSULIN LISPRO (NovoLOG) PER UNIT SC SCH ×4 (08:41→21:00)
[2021-06-16] MEDS: FUROSEMIDE 40 MG TAB PO SCH (08:41)
[2021-06-16] MEDS: LEVEMIR (INSULIN DETEMIR) 1 UNITS/0.01ML SC SCH (08:42)
[2021-06-16 14:00] VITALS: BP 163/61
[2021-06-16 20:10] VITALS: BP 172/66
[2021-06-16] MEDS: SIMVASTATIN 20 MG TAB PO SCH (20:57)
[2021-06-17 06:30] LABS: HEMATOCRIT 38.2 % (42.0-52.0); HEMOGLOBIN 12.6 g/dl (13.5-17.5); MEAN CORPUSCULAR HEMOGLOBIN 28.2 pg (27.0-33.0); MEAN CORPUSCULAR VOLUME 85.5 fl (80.0-96.0); PLATELET COUNT, AUTOMATED 165 10^3/uL (150-450); RED BLOOD COUNT 4.47 10^6/uL (4.30-6.10); WHITE BLOOD COUNT 6.6 10^3/uL (4.0-10.0)
[2021-06-17 06:37] VITALS: BP 156/54
[2021-06-17 06:54] LABS: CALCIUM LEVEL 8.7 MG/DL (8.8-10.2); CREATININE FOR GFR 1.5 MG/DL (0.70-1.30); GLOMERULAR FILTRATION RATE 49.1 (>42)
[2021-06-17] MEDS: LEVEMIR (INSULIN DETEMIR) 1 UNITS/0.01ML SC SCH (08:22)
[2021-06-17] MEDS: ASPIRIN 81 MG CHEW TABLET PO SCH (08:22)
[2021-06-17] MEDS: HEPARIN SOD (PORCINE) 5000UNITS/ML 1ML VIAL/SYRINGE SQ SCH ×2 (08:22→20:02)
[2021-06-17] MEDS: INSULIN LISPRO (NovoLOG) PER UNIT SC SCH ×4 (08:22→20:03)
[2021-06-17] MEDS: DOCUSATE SODIUM 100MG CAPSULE PO SCH ×2 (08:23→20:02)
[2021-06-17] MEDS: FUROSEMIDE 40 MG TAB PO SCH (08:23)
[2021-06-17 19:57] VITALS: BP 161/60
[2021-06-17] MEDS: SIMVASTATIN 20 MG TAB PO SCH (20:02)
[2021-06-18 05:54] VITALS: BP 167/64
[2021-06-18 06:08] LABS: HEMATOCRIT 36.5 % (42.0-52.0); MEAN CORPUSCULAR HGB CONC 32.9 g/dl (32.0-36.5); MEAN CORPUSCULAR VOLUME 85.3 fl (80.0-96.0); PLATELET COUNT, AUTOMATED 160 10^3/uL (150-450); RED BLOOD COUNT 4.28 10^6/uL (4.30-6.10); WHITE BLOOD COUNT 6.1 10^3/uL (4.0-10.0)
[2021-06-18 06:35] LABS: CREATININE FOR GFR 1.49 MG/DL (0.70-1.30); GLOMERULAR FILTRATION RATE 49.5 (>42); POTASSIUM SERUM 4.2 MEQ/L (3.5-5.1)
[2021-06-18] MEDS: ASPIRIN 81 MG CHEW TABLET PO SCH (08:00)
[2021-06-18] MEDS: HEPARIN SOD (PORCINE) 5000UNITS/ML 1ML VIAL/SYRINGE SQ SCH ×2 (08:00→20:07)
[2021-06-18] MEDS: INSULIN LISPRO (NovoLOG) PER UNIT SC SCH ×4 (08:00→20:08)
[2021-06-18] MEDS: LEVEMIR (INSULIN DETEMIR) 1 UNITS/0.01ML SC SCH (08:00)
[2021-06-18] MEDS: FUROSEMIDE 40 MG TAB PO SCH (08:01)
[2021-06-18] MEDS: DOCUSATE SODIUM 100MG CAPSULE PO SCH ×2 (08:16→20:07)
[2021-06-18] MEDS: SIMVASTATIN 20 MG TAB PO SCH (20:07)
[2021-06-19 06:00] VITALS: BP 154/61
[2021-06-19 07:15] LABS: HEMATOCRIT 35.9 % (42.0-52.0); HEMOGLOBIN 11.8 g/dl (13.5-17.5); MEAN CORPUSCULAR HGB CONC 32.9 g/dl (32.0-36.5); MEAN CORPUSCULAR VOLUME 85.1 fl (80.0-96.0); PLATELET COUNT, AUTOMATED 179 10^3/uL (150-450); RED BLOOD COUNT 4.22 10^6/uL (4.30-6.10); WHITE BLOOD COUNT 6.2 10^3/uL (4.0-10.0)
[2021-06-19 07:31] LABS: CALCIUM LEVEL 8.8 MG/DL (8.8-10.2); CREATININE FOR GFR 1.6 MG/DL (0.70-1.30); GLOMERULAR FILTRATION RATE 45.6 (>42); POTASSIUM SERUM 4.3 MEQ/L (3.5-5.1)
[2021-06-19] MEDS: HEPARIN SOD (PORCINE) 5000UNITS/ML 1ML VIAL/SYRINGE SQ SCH ×2 (08:33→20:13)
[2021-06-19] MEDS: INSULIN LISPRO (NovoLOG) PER UNIT SC SCH ×4 (08:34→20:13)
[2021-06-19] MEDS: FUROSEMIDE 40 MG TAB PO SCH (08:35)
[2021-06-19] MEDS: ASPIRIN 81 MG CHEW TABLET PO SCH (08:35)
[2021-06-19] MEDS: LEVEMIR (INSULIN DETEMIR) 1 UNITS/0.01ML SC SCH (08:35)
[2021-06-19] MEDS: DOCUSATE SODIUM 100MG CAPSULE PO SCH ×2 (08:35→20:12)
[2021-06-19] MEDS: SIMVASTATIN 20 MG TAB PO SCH (20:12)
[2021-06-20 06:00] VITALS: BP 154/60
[2021-06-20] MEDS: INSULIN LISPRO (NovoLOG) PER UNIT SC SCH ×4 (08:16→20:12)
[2021-06-20] MEDS: ASPIRIN 81 MG CHEW TABLET PO SCH (08:16)
[2021-06-20] MEDS: DOCUSATE SODIUM 100MG CAPSULE PO SCH ×2 (08:16→20:11)
[2021-06-20] MEDS: HEPARIN SOD (PORCINE) 5000UNITS/ML 1ML VIAL/SYRINGE SQ SCH ×2 (08:16→20:12)
[2021-06-20] MEDS: LEVEMIR (INSULIN DETEMIR) 1 UNITS/0.01ML SC SCH (08:16)
[2021-06-20] MEDS: FUROSEMIDE 40 MG TAB PO SCH (08:17)
[2021-06-20] MEDS: SIMVASTATIN 20 MG TAB PO SCH (20:11)
[2021-06-21 06:18] VITALS: BP 178/68
[2021-06-21] MEDS: DOCUSATE SODIUM 100MG CAPSULE PO SCH ×2 (08:04→20:53)
[2021-06-21] MEDS: INSULIN LISPRO (NovoLOG) PER UNIT SC SCH ×4 (08:04→20:54)
[2021-06-21] MEDS: LEVEMIR (INSULIN DETEMIR) 1 UNITS/0.01ML SC SCH (08:04)
[2021-06-21] MEDS: ASPIRIN 81 MG CHEW TABLET PO SCH (08:04)
[2021-06-21] MEDS: FUROSEMIDE 40 MG TAB PO SCH (08:05)
[2021-06-21] MEDS: HEPARIN SOD (PORCINE) 5000UNITS/ML 1ML VIAL/SYRINGE SQ SCH ×2 (08:05→20:53)
[2021-06-21] MEDS: SIMVASTATIN 20 MG TAB PO SCH (20:53)
[2021-06-22 06:00] VITALS: BP_SYST 155; BP_SYST 168; BP_DIAS 67; BP_DIAS 72
[2021-06-22] MEDS: HEPARIN SOD (PORCINE) 5000UNITS/ML 1ML VIAL/SYRINGE SQ SCH ×2 (08:02→20:54)
[2021-06-22] MEDS: ASPIRIN 81 MG CHEW TABLET PO SCH (08:03)
[2021-06-22] MEDS: INSULIN LISPRO (NovoLOG) PER UNIT SC SCH ×4 (08:03→20:50)
[2021-06-22] MEDS: LEVEMIR (INSULIN DETEMIR) 1 UNITS/0.01ML SC SCH (08:03)
[2021-06-22] MEDS: DOCUSATE SODIUM 100MG CAPSULE PO SCH ×2 (08:04→20:54)
[2021-06-22] MEDS: FUROSEMIDE 40 MG TAB PO SCH (08:04)
[2021-06-22] MEDS: SIMVASTATIN 20 MG TAB PO SCH (20:54)
[2021-06-23 06:00] VITALS: BP 158/60
[2021-06-23] MEDS: INSULIN LISPRO (NovoLOG) PER UNIT SC SCH ×4 (07:35→19:59)
[2021-06-23] MEDS: LEVEMIR (INSULIN DETEMIR) 1 UNITS/0.01ML SC SCH (09:07)
[2021-06-23] MEDS: HEPARIN SOD (PORCINE) 5000UNITS/ML 1ML VIAL/SYRINGE SQ SCH ×2 (09:07→20:31)
[2021-06-23] MEDS: ASPIRIN 81 MG CHEW TABLET PO SCH (09:07)
[2021-06-23] MEDS: DOCUSATE SODIUM 100MG CAPSULE PO SCH ×2 (09:07→20:31)
[2021-06-23] MEDS: FUROSEMIDE 40 MG TAB PO SCH (09:10)
[2021-06-23] MEDS: SIMVASTATIN 20 MG TAB PO SCH (20:31)
[2021-06-24 06:00] VITALS: BP 155/58
[2021-06-24] MEDS: DOCUSATE SODIUM 100MG CAPSULE PO SCH ×2 (09:00→20:26)
[2021-06-24] MEDS: ASPIRIN 81 MG CHEW TABLET PO SCH (09:00)
[2021-06-24] MEDS: ACETAMINOPHEN TAB 650MG DOSE (2X325MG) PO PRN (09:00)
[2021-06-24] MEDS: FUROSEMIDE 40 MG TAB PO SCH (09:00)
[2021-06-24] MEDS: HEPARIN SOD (PORCINE) 5000UNITS/ML 1ML VIAL/SYRINGE SQ SCH ×2 (09:01→20:26)
[2021-06-24] MEDS: LEVEMIR (INSULIN DETEMIR) 1 UNITS/0.01ML SC SCH (09:01)
[2021-06-24] MEDS: INSULIN LISPRO (NovoLOG) PER UNIT SC SCH ×4 (09:02→20:25)
[2021-06-24] MEDS: SIMVASTATIN 20 MG TAB PO SCH (20:26)
[2021-06-25 06:00] VITALS: BP 157/54
[2021-06-25] MEDS: ASPIRIN 81 MG CHEW TABLET PO SCH (08:11)
[2021-06-25] MEDS: FUROSEMIDE 40 MG TAB PO SCH (08:11)
[2021-06-25] MEDS: DOCUSATE SODIUM 100MG CAPSULE PO SCH ×2 (08:11→20:28)
[2021-06-25] MEDS: HEPARIN SOD (PORCINE) 5000UNITS/ML 1ML VIAL/SYRINGE SQ SCH ×2 (08:12→20:28)
[2021-06-25] MEDS: LEVEMIR (INSULIN DETEMIR) 1 UNITS/0.01ML SC SCH (08:12)
[2021-06-25] MEDS: INSULIN LISPRO (NovoLOG) PER UNIT SC SCH ×4 (08:12→20:29)
[2021-06-25] MEDS: ACETAMINOPHEN TAB 650MG DOSE (2X325MG) PO PRN (20:28)
[2021-06-25] MEDS: SIMVASTATIN 20 MG TAB PO SCH (20:28)
[2021-06-25] MEDS ORDERED: NITROGLYCERIN 0.4 MG SUBL TABLET SL STA (23:21)
[2021-06-25 23:48] LABS: BASO # 0.1 10^3/uL (0.0-0.2); BASO % 1.2 % (0.0-1.0); EOS # 0.4 10^3/uL (0.0-0.5); EOS % 5.4 % (0.0-3.0); HEMATOCRIT 37.7 % (42.0-52.0); HEMOGLOBIN 12.4 g/dl (13.5-17.5); LYMPH # 2.2 10^3/uL (1.5-5.0); LYMPH % 29.8 % (24.0-44.0); MEAN CORPUSCULAR HEMOGLOBIN 28.3 pg (27.0-33.0); MEAN CORPUSCULAR HGB CONC 32.9 g/dl (32.0-36.5); MEAN CORPUSCULAR VOLUME 86.1 fl (80.0-96.0); MONO # 0.6 10^3/uL (0.0-0.8); MONO % 7.7 % (2.0-8.0); NEUTROPHILS # 4.1 10^3/uL (1.5-8.5); NEUTROPHILS % 55.5 % (36.0-66.0); PLATELET COUNT, AUTOMATED 249 10^3/uL (150-450); RED BLOOD COUNT 4.38 10^6/uL (4.30-6.10); WHITE BLOOD COUNT 7.4 10^3/uL (4.0-10.0)
[2021-06-26] MEDS ORDERED: ASPIRIN 81 MG CHEW TABLET PO ONE
[2021-06-26 00:12] VITALS: BP 168/58
[2021-06-26 00:25] LABS: CALCIUM LEVEL 8.7 MG/DL (8.8-10.2); CREATININE FOR GFR 2.1 MG/DL (0.70-1.30); GLOMERULAR FILTRATION RATE 33.3 (>42); POTASSIUM SERUM 4.7 MEQ/L (3.5-5.1)
[2021-06-26 00:27] LABS: CK-MB VALUE MASS 1.2 NG/ML (<3.6); MB/CK RELATIVE INDEX 7.5 (< OR =4)
[2021-06-26] MEDS ORDERED: MORPHINE 4 MG/ML 1ML VIAL/SYRINGE IV ONE ×2 (01:00)
[2021-06-26] MEDS ORDERED: **hydrALAZINE** 10 MG TAB PO ONE ×2 (01:00→07:00)
[2021-06-26 04:01] LABS: CK-MB VALUE MASS 1.2 NG/ML (<3.6); MB/CK RELATIVE INDEX 8.57 (< OR =4)
[2021-06-26] MEDS ORDERED: **hydrALAZINE HCL** 25 MG TAB PO PRN (04:10)
[2021-06-26 06:00] VITALS: BP 175/71
[2021-06-26 07:14] LABS: CK-MB VALUE MASS < 1.0 NG/ML (<3.6); CPK CREATINE PHOSPHOKINASE 14 U/L (39-308); MB/CK RELATIVE INDEX 7.14 (< OR =4)
[2021-06-26 07:15] LABS: CHOLESTEROL RISK RATIO 3.2 (<5)
[2021-06-26] MEDS: INSULIN LISPRO (NovoLOG) PER UNIT SC SCH ×4 (09:52→21:00)
[2021-06-26] MEDS: ASPIRIN 81 MG CHEW TABLET PO SCH (09:52)
[2021-06-26] MEDS: LEVEMIR (INSULIN DETEMIR) 1 UNITS/0.01ML SC SCH (09:52)
[2021-06-26] MEDS: DOCUSATE SODIUM 100MG CAPSULE PO SCH ×2 (09:52→22:47)
[2021-06-26] MEDS: HEPARIN SOD (PORCINE) 5000UNITS/ML 1ML VIAL/SYRINGE SQ SCH ×2 (09:53→22:46)
[2021-06-26] MEDS: FUROSEMIDE 40 MG TAB PO SCH (09:53)
[2021-06-26] MEDS: **hydrALAZINE HCL** 25 MG TAB PO PRN (10:03)
[2021-06-26] MEDS: NITROGLYCERIN 0.4 MG SUBL TABLET SL PRN (10:15)
[2021-06-26] MEDS ORDERED: GI COCKTAIL 50ML BTL(HYOSCYAMINE/MAALOX/LIDOCAINE VISCOUS)(1:3:1) PO STA (10:19)
[2021-06-26 10:20] LABS: CK-MB VALUE MASS 1.3 NG/ML (<3.6); MB/CK RELATIVE INDEX 6.84 (< OR =4)
[2021-06-26] MEDS: SIMETHICONE 80MG CHEW TAB PO SCH ×3 (10:37→22:47)
[2021-06-26 14:00] VITALS: BP 154/56
[2021-06-26 22:00] VITALS: BP 177/74
[2021-06-26] MEDS: SIMVASTATIN 20 MG TAB PO SCH (22:47)
[2021-06-27] MEDS: **hydrALAZINE HCL** 25 MG TAB PO PRN (05:21)
[2021-06-27 06:00] VITALS: BP 185/77
[2021-06-27 07:32] VITALS: BP 156/66
[2021-06-27] MEDS: LEVEMIR (INSULIN DETEMIR) 1 UNITS/0.01ML SC SCH (08:39)
[2021-06-27] MEDS: INSULIN LISPRO (NovoLOG) PER UNIT SC SCH ×4 (08:39→20:47)
[2021-06-27] MEDS: ASPIRIN 81 MG CHEW TABLET PO SCH (08:40)
[2021-06-27] MEDS: FUROSEMIDE 40 MG TAB PO SCH (08:40)
[2021-06-27] MEDS: HEPARIN SOD (PORCINE) 5000UNITS/ML 1ML VIAL/SYRINGE SQ SCH ×2 (08:40→20:54)
[2021-06-27] MEDS: DOCUSATE SODIUM 100MG CAPSULE PO SCH ×2 (08:40→20:54)
[2021-06-27] MEDS: SIMETHICONE 80MG CHEW TAB PO SCH ×3 (08:40→20:54)
[2021-06-27 13:58] VITALS: BP 156/65
[2021-06-27] MEDS ORDERED: MIRALAX *UNIT DOSE* 17GM PACKET PO PRN (14:20)
[2021-06-27] MEDS: SIMVASTATIN 20 MG TAB PO SCH (20:55)
[2021-06-27 22:00] VITALS: BP 159/64
[2021-06-28 06:00] VITALS: BP 160/65
[2021-06-28] MEDS: FUROSEMIDE 40 MG TAB PO SCH (07:59)
[2021-06-28] MEDS: SIMETHICONE 80MG CHEW TAB PO SCH ×3 (08:00→21:05)
[2021-06-28] MEDS: HEPARIN SOD (PORCINE) 5000UNITS/ML 1ML VIAL/SYRINGE SQ SCH ×2 (08:00→21:06)
[2021-06-28] MEDS: ASPIRIN 81 MG CHEW TABLET PO SCH (08:00)
[2021-06-28] MEDS: INSULIN LISPRO (NovoLOG) PER UNIT SC SCH ×4 (08:01→19:56)
[2021-06-28] MEDS: LEVEMIR (INSULIN DETEMIR) 1 UNITS/0.01ML SC SCH (08:02)
[2021-06-28] MEDS: DOCUSATE SODIUM 100MG CAPSULE PO SCH ×2 (09:46→21:05)
[2021-06-28 14:00] VITALS: BP 155/68
[2021-06-28 20:03] VITALS: BP 163/66
[2021-06-28] MEDS: SIMVASTATIN 20 MG TAB PO SCH (21:05)
[2021-06-29 04:54] VITALS: BP 157/67
[2021-06-29] MEDS: DOCUSATE SODIUM 100MG CAPSULE PO SCH ×2 (08:32→21:03)
[2021-06-29] MEDS: ASPIRIN 81 MG CHEW TABLET PO SCH (08:32)
[2021-06-29] MEDS: FUROSEMIDE 40 MG TAB PO SCH (08:32)
[2021-06-29] MEDS: SIMETHICONE 80MG CHEW TAB PO SCH ×3 (08:32→21:03)
[2021-06-29] MEDS: INSULIN LISPRO (NovoLOG) PER UNIT SC SCH ×4 (08:34→19:36)
[2021-06-29] MEDS: LEVEMIR (INSULIN DETEMIR) 1 UNITS/0.01ML SC SCH (08:34)
[2021-06-29] MEDS: HEPARIN SOD (PORCINE) 5000UNITS/ML 1ML VIAL/SYRINGE SQ SCH ×2 (08:34→21:04)
[2021-06-29] MEDS: SIMVASTATIN 20 MG TAB PO SCH (21:04)
[2021-06-29] MEDS: **hydrALAZINE HCL** 25 MG TAB PO PRN (21:05)
[2021-06-29 21:08] VITALS: BP 186/92
[2021-06-29 22:19] VITALS: BP 140/70
[2021-06-30 05:09] VITALS: BP 143/74
[2021-06-30] MEDS: DOCUSATE SODIUM 100MG CAPSULE PO SCH ×2 (08:43→20:17)
[2021-06-30] MEDS: SIMETHICONE 80MG CHEW TAB PO SCH ×3 (08:43→20:17)
[2021-06-30] MEDS: FUROSEMIDE 40 MG TAB PO SCH (08:43)
[2021-06-30] MEDS: ASPIRIN 81 MG CHEW TABLET PO SCH (08:43)
[2021-06-30] MEDS: INSULIN LISPRO (NovoLOG) PER UNIT SC SCH ×4 (08:44→20:17)
[2021-06-30] MEDS: LEVEMIR (INSULIN DETEMIR) 1 UNITS/0.01ML SC SCH (08:44)
[2021-06-30] MEDS: HEPARIN SOD (PORCINE) 5000UNITS/ML 1ML VIAL/SYRINGE SQ SCH ×2 (08:45→20:17)
[2021-06-30] MEDS: SIMVASTATIN 20 MG TAB PO SCH (20:17)
[2021-07-01 06:00] VITALS: BP 154/63
[2021-07-01] MEDS: INSULIN LISPRO (NovoLOG) PER UNIT SC SCH ×4 (08:35→20:54)
[2021-07-01] MEDS: LEVEMIR (INSULIN DETEMIR) 1 UNITS/0.01ML SC SCH (08:35)
[2021-07-01] MEDS: FUROSEMIDE 40 MG TAB PO SCH (08:37)
[2021-07-01] MEDS: ASPIRIN 81 MG CHEW TABLET PO SCH (08:37)
[2021-07-01] MEDS: DOCUSATE SODIUM 100MG CAPSULE PO SCH ×2 (08:37→20:58)
[2021-07-01] MEDS: SIMETHICONE 80MG CHEW TAB PO SCH ×3 (08:37→20:58)
[2021-07-01] MEDS: HEPARIN SOD (PORCINE) 5000UNITS/ML 1ML VIAL/SYRINGE SQ SCH ×2 (08:40→20:58)
[2021-07-01] MEDS: SIMVASTATIN 20 MG TAB PO SCH (20:58)
[2021-07-02 06:00] VITALS: BP 144/75
[2021-07-02] MEDS: LEVEMIR (INSULIN DETEMIR) 1 UNITS/0.01ML SC SCH (07:59)
[2021-07-02] MEDS: HEPARIN SOD (PORCINE) 5000UNITS/ML 1ML VIAL/SYRINGE SQ SCH ×2 (07:59→20:29)
[2021-07-02] MEDS: INSULIN LISPRO (NovoLOG) PER UNIT SC SCH ×4 (07:59→20:17)
[2021-07-02] MEDS: FUROSEMIDE 40 MG TAB PO SCH (08:00)
[2021-07-02] MEDS: ASPIRIN 81 MG CHEW TABLET PO SCH (08:00)
[2021-07-02] MEDS: DOCUSATE SODIUM 100MG CAPSULE PO SCH ×2 (08:00→20:28)
[2021-07-02] MEDS: SIMETHICONE 80MG CHEW TAB PO SCH ×3 (08:00→20:28)
[2021-07-02] MEDS: SIMVASTATIN 20 MG TAB PO SCH (20:28)
[2021-07-03 06:00] VITALS: BP 158/63
[2021-07-03] MEDS: DOCUSATE SODIUM 100MG CAPSULE PO SCH ×2 (08:51→20:27)
[2021-07-03] MEDS: SIMETHICONE 80MG CHEW TAB PO SCH ×3 (08:52→20:27)
[2021-07-03] MEDS: FUROSEMIDE 40 MG TAB PO SCH (08:52)
[2021-07-03] MEDS: ASPIRIN 81 MG CHEW TABLET PO SCH (08:52)
[2021-07-03] MEDS: HEPARIN SOD (PORCINE) 5000UNITS/ML 1ML VIAL/SYRINGE SQ SCH ×2 (08:53→20:27)
[2021-07-03] MEDS: INSULIN LISPRO (NovoLOG) PER UNIT SC SCH ×4 (08:54→20:27)
[2021-07-03] MEDS: LEVEMIR (INSULIN DETEMIR) 1 UNITS/0.01ML SC SCH (08:54)
[2021-07-03] MEDS: SIMVASTATIN 20 MG TAB PO SCH (20:27)
[2021-07-03] MEDS: **hydrALAZINE HCL** 25 MG TAB PO PRN (20:28)
[2021-07-04 01:17] VITALS: BP 166/68
[2021-07-04 01:59] VITALS: BP 149/53
[2021-07-04 06:00] VITALS: BP 145/67
[2021-07-04] MEDS: INSULIN LISPRO (NovoLOG) PER UNIT SC SCH ×4 (09:49→20:15)
[2021-07-04] MEDS: LEVEMIR (INSULIN DETEMIR) 1 UNITS/0.01ML SC SCH (09:49)
[2021-07-04] MEDS: SIMETHICONE 80MG CHEW TAB PO SCH ×3 (09:50→20:23)
[2021-07-04] MEDS: DOCUSATE SODIUM 100MG CAPSULE PO SCH ×2 (09:50→20:23)
[2021-07-04] MEDS: FUROSEMIDE 40 MG TAB PO SCH (09:50)
[2021-07-04] MEDS: ASPIRIN 81 MG CHEW TABLET PO SCH (09:50)
[2021-07-04] MEDS: HEPARIN SOD (PORCINE) 5000UNITS/ML 1ML VIAL/SYRINGE SQ SCH ×2 (09:50→20:23)
[2021-07-04] MEDS: SIMVASTATIN 20 MG TAB PO SCH (20:23)
[2021-07-04] MEDS: **hydrALAZINE HCL** 25 MG TAB PO PRN (20:23)
[2021-07-05 02:00] VITALS: BP 161/66
[2021-07-05 03:02] VITALS: BP 168/66
[2021-07-05] MEDS ORDERED: **hydrALAZINE** 50 MG TAB PO ONE (03:45)
[2021-07-05 06:00] VITALS: BP 147/61
[2021-07-05] MEDS: SIMETHICONE 80MG CHEW TAB PO SCH ×3 (08:53→20:09)
[2021-07-05] MEDS: ASPIRIN 81 MG CHEW TABLET PO SCH (08:53)
[2021-07-05] MEDS: HEPARIN SOD (PORCINE) 5000UNITS/ML 1ML VIAL/SYRINGE SQ SCH ×2 (08:54→20:09)
[2021-07-05] MEDS: FUROSEMIDE 40 MG TAB PO SCH (08:54)
[2021-07-05] MEDS: DOCUSATE SODIUM 100MG CAPSULE PO SCH ×2 (08:55→20:09)
[2021-07-05] MEDS: INSULIN LISPRO (NovoLOG) PER UNIT SC SCH ×4 (08:55→20:04)
[2021-07-05] MEDS: LEVEMIR (INSULIN DETEMIR) 1 UNITS/0.01ML SC SCH (08:56)
[2021-07-05] MEDS: SIMVASTATIN 20 MG TAB PO SCH (20:09)
[2021-07-06 06:00] VITALS: BP 141/56
[2021-07-06] MEDS: LEVEMIR (INSULIN DETEMIR) 1 UNITS/0.01ML SC SCH (08:57)
[2021-07-06] MEDS: SIMETHICONE 80MG CHEW TAB PO SCH ×3 (08:58→21:30)
[2021-07-06] MEDS: HEPARIN SOD (PORCINE) 5000UNITS/ML 1ML VIAL/SYRINGE SQ SCH ×2 (08:58→21:30)
[2021-07-06] MEDS: FUROSEMIDE 40 MG TAB PO SCH (08:58)
[2021-07-06] MEDS: INSULIN LISPRO (NovoLOG) PER UNIT SC SCH ×4 (08:58→21:00)
[2021-07-06] MEDS: DOCUSATE SODIUM 100MG CAPSULE PO SCH ×2 (08:58→21:30)
[2021-07-06] MEDS: ASPIRIN 81 MG CHEW TABLET PO SCH (08:58)
[2021-07-06] MEDS: SIMVASTATIN 20 MG TAB PO SCH (21:30)
[2021-07-07 05:25] VITALS: BP 153/76
[2021-07-07] MEDS: SIMETHICONE 80MG CHEW TAB PO SCH ×3 (08:59→20:42)
[2021-07-07] MEDS: INSULIN LISPRO (NovoLOG) PER UNIT SC SCH ×4 (08:59→21:00)
[2021-07-07] MEDS: FUROSEMIDE 40 MG TAB PO SCH (08:59)
[2021-07-07] MEDS: DOCUSATE SODIUM 100MG CAPSULE PO SCH ×2 (08:59→20:42)
[2021-07-07] MEDS: ASPIRIN 81 MG CHEW TABLET PO SCH (08:59)
[2021-07-07] MEDS: LEVEMIR (INSULIN DETEMIR) 1 UNITS/0.01ML SC SCH (09:00)
[2021-07-07] MEDS: HEPARIN SOD (PORCINE) 5000UNITS/ML 1ML VIAL/SYRINGE SQ SCH ×2 (09:01→20:43)
[2021-07-07] MEDS: SIMVASTATIN 20 MG TAB PO SCH (20:42)
[2021-07-08] MEDS: ASPIRIN 81 MG CHEW TABLET PO SCH (08:27)
[2021-07-08] MEDS: FUROSEMIDE 40 MG TAB PO SCH (08:27)
[2021-07-08] MEDS: INSULIN LISPRO (NovoLOG) PER UNIT SC SCH ×4 (08:27→20:19)
[2021-07-08] MEDS: DOCUSATE SODIUM 100MG CAPSULE PO SCH ×2 (08:27→21:12)
[2021-07-08] MEDS: LEVEMIR (INSULIN DETEMIR) 1 UNITS/0.01ML SC SCH (08:29)
[2021-07-08] MEDS: HEPARIN SOD (PORCINE) 5000UNITS/ML 1ML VIAL/SYRINGE SQ SCH ×2 (08:30→21:12)
[2021-07-08] MEDS: SIMETHICONE 80MG CHEW TAB PO SCH ×3 (08:34→21:12)
[2021-07-08 20:00] VITALS: BP 147/65
[2021-07-08] MEDS: SIMVASTATIN 20 MG TAB PO SCH (21:12)
[2021-07-09 05:16] VITALS: BP 146/62
[2021-07-09] MEDS: INSULIN LISPRO (NovoLOG) PER UNIT SC SCH ×4 (08:59→21:00)
[2021-07-09] MEDS: SIMETHICONE 80MG CHEW TAB PO SCH ×3 (08:59→20:33)
[2021-07-09] MEDS: LEVEMIR (INSULIN DETEMIR) 1 UNITS/0.01ML SC SCH (08:59)
[2021-07-09] MEDS: ASPIRIN 81 MG CHEW TABLET PO SCH (09:00)
[2021-07-09] MEDS: FUROSEMIDE 40 MG TAB PO SCH (09:00)
[2021-07-09] MEDS: DOCUSATE SODIUM 100MG CAPSULE PO SCH ×2 (09:00→20:32)
[2021-07-09] MEDS: HEPARIN SOD (PORCINE) 5000UNITS/ML 1ML VIAL/SYRINGE SQ SCH ×2 (09:01→20:33)
[2021-07-09 10:05] VITALS: BP 128/60
[2021-07-09] MEDS: SIMVASTATIN 20 MG TAB PO SCH (20:33)
[2021-07-10 04:24] VITALS: BP 110/52
[2021-07-10] MEDS: ASPIRIN 81 MG CHEW TABLET PO SCH (08:49)
[2021-07-10] MEDS: LEVEMIR (INSULIN DETEMIR) 1 UNITS/0.01ML SC SCH (08:49)
[2021-07-10] MEDS: HEPARIN SOD (PORCINE) 5000UNITS/ML 1ML VIAL/SYRINGE SQ SCH ×2 (08:49→20:57)
[2021-07-10] MEDS: INSULIN LISPRO (NovoLOG) PER UNIT SC SCH ×4 (08:49→21:00)
[2021-07-10] MEDS: FUROSEMIDE 40 MG TAB PO SCH (08:50)
[2021-07-10] MEDS: DOCUSATE SODIUM 100MG CAPSULE PO SCH ×2 (08:50→20:55)
[2021-07-10] MEDS: SIMETHICONE 80MG CHEW TAB PO SCH ×3 (08:50→20:55)
[2021-07-10] MEDS: SIMVASTATIN 20 MG TAB PO SCH (20:54)
[2021-07-11 06:00] VITALS: BP 142/66
[2021-07-11] MEDS: FUROSEMIDE 40 MG TAB PO SCH (08:48)
[2021-07-11] MEDS: SIMETHICONE 80MG CHEW TAB PO SCH ×3 (08:48→21:08)
[2021-07-11] MEDS: ASPIRIN 81 MG CHEW TABLET PO SCH (08:48)
[2021-07-11] MEDS: DOCUSATE SODIUM 100MG CAPSULE PO SCH ×2 (08:48→21:08)
[2021-07-11] MEDS: INSULIN LISPRO (NovoLOG) PER UNIT SC SCH ×4 (08:49→20:57)
[2021-07-11] MEDS: HEPARIN SOD (PORCINE) 5000UNITS/ML 1ML VIAL/SYRINGE SQ SCH ×2 (08:49→21:08)
[2021-07-11] MEDS: LEVEMIR (INSULIN DETEMIR) 1 UNITS/0.01ML SC SCH (08:49)
[2021-07-11] MEDS: SIMVASTATIN 20 MG TAB PO SCH (21:08)
[2021-07-12 04:36] VITALS: BP 162/62
[2021-07-12 08:06] LABS: HEMATOCRIT 36.8 % (42.0-52.0); MEAN CORPUSCULAR HEMOGLOBIN 28.6 pg (27.0-33.0); MEAN CORPUSCULAR HGB CONC 32.6 g/dl (32.0-36.5); MEAN CORPUSCULAR VOLUME 87.6 fl (80.0-96.0); PLATELET COUNT, AUTOMATED 189 10^3/uL (150-450); WHITE BLOOD COUNT 7.9 10^3/uL (4.0-10.0)
[2021-07-12 08:44] LABS: CALCIUM LEVEL 9.4 MG/DL (8.8-10.2); CREATININE FOR GFR 1.82 MG/DL (0.70-1.30); GLOMERULAR FILTRATION RATE 39.3 (>42); POTASSIUM SERUM 5.4 MEQ/L (3.5-5.1)
[2021-07-12] MEDS: INSULIN LISPRO (NovoLOG) PER UNIT SC SCH ×4 (09:07→20:14)
[2021-07-12] MEDS: DOCUSATE SODIUM 100MG CAPSULE PO SCH ×2 (09:08→22:26)
[2021-07-12] MEDS: LEVEMIR (INSULIN DETEMIR) 1 UNITS/0.01ML SC SCH (09:08)
[2021-07-12] MEDS: ASPIRIN 81 MG CHEW TABLET PO SCH (09:09)
[2021-07-12] MEDS: HEPARIN SOD (PORCINE) 5000UNITS/ML 1ML VIAL/SYRINGE SQ SCH ×2 (09:09→21:00)
[2021-07-12] MEDS: SIMETHICONE 80MG CHEW TAB PO SCH ×3 (09:09→22:26)
[2021-07-12] MEDS: FUROSEMIDE 40 MG TAB PO SCH (09:09)
[2021-07-12] MEDS: SIMVASTATIN 20 MG TAB PO SCH (22:26)
[2021-07-13 06:20] VITALS: BP 150/63
[2021-07-13] MEDS: LEVEMIR (INSULIN DETEMIR) 1 UNITS/0.01ML SC SCH (09:01)
[2021-07-13] MEDS: INSULIN LISPRO (NovoLOG) PER UNIT SC SCH ×4 (09:01→21:00)
[2021-07-13] MEDS: HEPARIN SOD (PORCINE) 5000UNITS/ML 1ML VIAL/SYRINGE SQ SCH ×2 (09:02→20:31)
[2021-07-13] MEDS: SIMETHICONE 80MG CHEW TAB PO SCH ×3 (09:02→20:31)
[2021-07-13] MEDS: DOCUSATE SODIUM 100MG CAPSULE PO SCH ×2 (09:04→20:31)
[2021-07-13] MEDS: FUROSEMIDE 40 MG TAB PO SCH (09:05)
[2021-07-13] MEDS: ASPIRIN 81 MG CHEW TABLET PO SCH (09:05)
[2021-07-13] MEDS: NITROGLYCERIN 0.4 MG SUBL TABLET SL PRN ×2 (15:03→15:16)
[2021-07-13 15:49] VITALS: BP 121/51
[2021-07-13 16:04] LABS: CK-MB VALUE MASS < 1.0 NG/ML (<3.6); CPK CREATINE PHOSPHOKINASE 15 U/L (39-308); MB/CK RELATIVE INDEX 6.67 (< OR =4)
[2021-07-13] MEDS ORDERED: GI COCKTAIL 50ML BTL(HYOSCYAMINE/MAALOX/LIDOCAINE VISCOUS)(1:3:1) PO ONE (17:00)
[2021-07-13] MEDS: SIMVASTATIN 20 MG TAB PO SCH (20:32)
[2021-07-14 06:00] VITALS: BP 141/58
[2021-07-14] MEDS: INSULIN LISPRO (NovoLOG) PER UNIT SC SCH ×4 (08:50→21:00)
[2021-07-14] MEDS: LEVEMIR (INSULIN DETEMIR) 1 UNITS/0.01ML SC SCH (08:50)
[2021-07-14] MEDS: HEPARIN SOD (PORCINE) 5000UNITS/ML 1ML VIAL/SYRINGE SQ SCH ×2 (08:51→21:37)
[2021-07-14] MEDS: SIMETHICONE 80MG CHEW TAB PO SCH ×3 (08:51→21:37)
[2021-07-14] MEDS: DOCUSATE SODIUM 100MG CAPSULE PO SCH ×2 (08:51→21:37)
[2021-07-14] MEDS: ASPIRIN 81 MG CHEW TABLET PO SCH (08:51)
[2021-07-14] MEDS: FUROSEMIDE 40 MG TAB PO SCH (08:53)
[2021-07-14 14:00] VITALS: BP 146/63
[2021-07-14] MEDS: SIMVASTATIN 20 MG TAB PO SCH (21:38)
[2021-07-15 07:41] VITALS: BP 150/61
[2021-07-15] MEDS: FUROSEMIDE 40 MG TAB PO SCH (08:27)
[2021-07-15] MEDS: INSULIN LISPRO (NovoLOG) PER UNIT SC SCH ×4 (08:27→20:58)
[2021-07-15] MEDS: ASPIRIN 81 MG CHEW TABLET PO SCH (08:27)
[2021-07-15] MEDS: LEVEMIR (INSULIN DETEMIR) 1 UNITS/0.01ML SC SCH (08:27)
[2021-07-15] MEDS: SIMETHICONE 80MG CHEW TAB PO SCH ×3 (08:27→20:57)
[2021-07-15] MEDS: DOCUSATE SODIUM 100MG CAPSULE PO SCH ×2 (08:27→20:58)
[2021-07-15] MEDS: HEPARIN SOD (PORCINE) 5000UNITS/ML 1ML VIAL/SYRINGE SQ SCH ×2 (08:28→20:58)
[2021-07-15] MEDS: SIMVASTATIN 20 MG TAB PO SCH (20:58)
[2021-07-16 05:50] LABS: HEMATOCRIT 37.2 % (42.0-52.0); HEMOGLOBIN 12.3 g/dl (13.5-17.5); MEAN CORPUSCULAR HEMOGLOBIN 29.4 pg (27.0-33.0); MEAN CORPUSCULAR HGB CONC 33.1 g/dl (32.0-36.5); MEAN CORPUSCULAR VOLUME 88.8 fl (80.0-96.0); PLATELET COUNT, AUTOMATED 192 10^3/uL (150-450); RED BLOOD COUNT 4.19 10^6/uL (4.30-6.10)
[2021-07-16 06:00] VITALS: BP 154/68
[2021-07-16 06:10] LABS: CREATININE FOR GFR 1.78 MG/DL (0.70-1.30); GLOMERULAR FILTRATION RATE 40.3 (>42); MAGNESIUM LEVEL 2.1 MG/DL (1.8-2.4)
[2021-07-16] MEDS: ASPIRIN 81 MG CHEW TABLET PO SCH (08:05)
[2021-07-16] MEDS: FUROSEMIDE 40 MG TAB PO SCH (08:05)
[2021-07-16] MEDS: DOCUSATE SODIUM 100MG CAPSULE PO SCH ×2 (08:05→20:35)
[2021-07-16] MEDS: HEPARIN SOD (PORCINE) 5000UNITS/ML 1ML VIAL/SYRINGE SQ SCH ×2 (08:06→20:34)
[2021-07-16] MEDS: LEVEMIR (INSULIN DETEMIR) 1 UNITS/0.01ML SC SCH (08:07)
[2021-07-16] MEDS: INSULIN LISPRO (NovoLOG) PER UNIT SC SCH ×4 (08:08→21:00)
[2021-07-16] MEDS: SIMETHICONE 80MG CHEW TAB PO SCH ×3 (08:11→20:35)
[2021-07-16] MEDS: SIMVASTATIN 20 MG TAB PO SCH (20:35)
[2021-07-17 05:35] VITALS: BP 131/61
[2021-07-17] MEDS: FUROSEMIDE 40 MG TAB PO SCH (07:56)
[2021-07-17] MEDS: SIMETHICONE 80MG CHEW TAB PO SCH ×3 (07:56→21:08)
[2021-07-17] MEDS: DOCUSATE SODIUM 100MG CAPSULE PO SCH ×2 (07:56→21:08)
[2021-07-17] MEDS: LEVEMIR (INSULIN DETEMIR) 1 UNITS/0.01ML SC SCH (07:57)
[2021-07-17] MEDS: ASPIRIN 81 MG CHEW TABLET PO SCH (07:57)
[2021-07-17] MEDS: INSULIN LISPRO (NovoLOG) PER UNIT SC SCH ×4 (07:57→21:00)
[2021-07-17] MEDS: HEPARIN SOD (PORCINE) 5000UNITS/ML 1ML VIAL/SYRINGE SQ SCH ×2 (07:58→21:08)
[2021-07-17 18:00] VITALS: BP 158/60
[2021-07-17 20:00] VITALS: BP 168/86
[2021-07-17] MEDS: SIMVASTATIN 20 MG TAB PO SCH (21:08)
[2021-07-18 06:00] VITALS: BP 146/63
[2021-07-18] MEDS: INSULIN LISPRO (NovoLOG) PER UNIT SC SCH ×4 (08:11→21:00)
[2021-07-18] MEDS: ASPIRIN 81 MG CHEW TABLET PO SCH (08:12)
[2021-07-18] MEDS: HEPARIN SOD (PORCINE) 5000UNITS/ML 1ML VIAL/SYRINGE SQ SCH ×2 (08:12→22:05)
[2021-07-18] MEDS: LEVEMIR (INSULIN DETEMIR) 1 UNITS/0.01ML SC SCH (08:12)
[2021-07-18] MEDS: SIMETHICONE 80MG CHEW TAB PO SCH ×3 (08:12→22:06)
[2021-07-18] MEDS: DOCUSATE SODIUM 100MG CAPSULE PO SCH ×2 (08:12→22:05)
[2021-07-18] MEDS: FUROSEMIDE 40 MG TAB PO SCH (08:13)
[2021-07-18] MEDS: SIMVASTATIN 20 MG TAB PO SCH (22:05)
[2021-07-19 05:00] VITALS: BP 157/67
[2021-07-19 06:07] LABS: HEMATOCRIT 36.3 % (42.0-52.0); HEMOGLOBIN 11.8 g/dl (13.5-17.5); MEAN CORPUSCULAR HEMOGLOBIN 28.4 pg (27.0-33.0); MEAN CORPUSCULAR HGB CONC 32.5 g/dl (32.0-36.5); MEAN CORPUSCULAR VOLUME 87.5 fl (80.0-96.0); PLATELET COUNT, AUTOMATED 185 10^3/uL (150-450); RED BLOOD COUNT 4.15 10^6/uL (4.30-6.10); WHITE BLOOD COUNT 6.6 10^3/uL (4.0-10.0)
[2021-07-19 06:34] LABS: CALCIUM LEVEL 8.7 MG/DL (8.8-10.2); CREATININE FOR GFR 1.64 MG/DL (0.70-1.30); GLOMERULAR FILTRATION RATE 44.3 (>42); POTASSIUM SERUM 4.4 MEQ/L (3.5-5.1)
[2021-07-19] MEDS: LEVEMIR (INSULIN DETEMIR) 1 UNITS/0.01ML SC SCH (08:32)
[2021-07-19] MEDS: INSULIN LISPRO (NovoLOG) PER UNIT SC SCH ×4 (08:33→20:35)
[2021-07-19] MEDS: HEPARIN SOD (PORCINE) 5000UNITS/ML 1ML VIAL/SYRINGE SQ SCH ×2 (08:33→20:36)
[2021-07-19] MEDS: SIMETHICONE 80MG CHEW TAB PO SCH ×3 (08:33→20:35)
[2021-07-19] MEDS: ASPIRIN 81 MG CHEW TABLET PO SCH (08:33)
[2021-07-19] MEDS: DOCUSATE SODIUM 100MG CAPSULE PO SCH ×2 (08:33→20:35)
[2021-07-19] MEDS: FUROSEMIDE 40 MG TAB PO SCH (08:34)
[2021-07-19] MEDS: SIMVASTATIN 20 MG TAB PO SCH (20:35)
[2021-07-20 06:00] VITALS: BP 152/69
[2021-07-20] MEDS: SIMETHICONE 80MG CHEW TAB PO SCH ×3 (08:58→20:06)
[2021-07-20] MEDS: ASPIRIN 81 MG CHEW TABLET PO SCH (08:59)
[2021-07-20] MEDS: DOCUSATE SODIUM 100MG CAPSULE PO SCH ×2 (08:59→20:06)
[2021-07-20 09:03] VITALS: BP 142/44
[2021-07-20] MEDS: FUROSEMIDE 40 MG TAB PO SCH (09:04)
[2021-07-20] MEDS: LEVEMIR (INSULIN DETEMIR) 1 UNITS/0.01ML SC SCH (09:05)
[2021-07-20] MEDS: INSULIN LISPRO (NovoLOG) PER UNIT SC SCH ×4 (09:05→20:07)
[2021-07-20] MEDS: HEPARIN SOD (PORCINE) 5000UNITS/ML 1ML VIAL/SYRINGE SQ SCH ×2 (09:06→20:07)
[2021-07-20] MEDS: SIMVASTATIN 20 MG TAB PO SCH (20:06)
[2021-07-21 06:00] VITALS: BP 157/63
[2021-07-21] MEDS: INSULIN LISPRO (NovoLOG) PER UNIT SC SCH ×4 (07:20→20:09)
[2021-07-21] MEDS: LEVEMIR (INSULIN DETEMIR) 1 UNITS/0.01ML SC SCH (09:00)
[2021-07-21] MEDS: ASPIRIN 81 MG CHEW TABLET PO SCH (09:16)
[2021-07-21] MEDS: FUROSEMIDE 40 MG TAB PO SCH (09:16)
[2021-07-21] MEDS: HEPARIN SOD (PORCINE) 5000UNITS/ML 1ML VIAL/SYRINGE SQ SCH ×2 (09:16→21:00)
[2021-07-21] MEDS: DOCUSATE SODIUM 100MG CAPSULE PO SCH ×2 (09:16→21:00)
[2021-07-21] MEDS: SIMETHICONE 80MG CHEW TAB PO SCH ×3 (09:16→21:00)
[2021-07-21] MEDS: SIMVASTATIN 20 MG TAB PO SCH (21:00)
[2021-07-22 05:30] VITALS: BP 161/65
[2021-07-22 06:01] LABS: HEMATOCRIT 35.2 % (42.0-52.0); HEMOGLOBIN 11.4 g/dl (13.5-17.5); MEAN CORPUSCULAR HEMOGLOBIN 28.3 pg (27.0-33.0); MEAN CORPUSCULAR HGB CONC 32.4 g/dl (32.0-36.5); MEAN CORPUSCULAR VOLUME 87.3 fl (80.0-96.0); PLATELET COUNT, AUTOMATED 183 10^3/uL (150-450); RED BLOOD COUNT 4.03 10^6/uL (4.30-6.10); WHITE BLOOD COUNT 6.7 10^3/uL (4.0-10.0)
[2021-07-22 06:22] LABS: CALCIUM LEVEL 8.8 MG/DL (8.8-10.2); CREATININE FOR GFR 1.94 MG/DL (0.70-1.30); GLOMERULAR FILTRATION RATE 36.5 (>42); MAGNESIUM LEVEL 2.2 MG/DL (1.8-2.4); POTASSIUM SERUM 4.4 MEQ/L (3.5-5.1)
[2021-07-22] MEDS: DOCUSATE SODIUM 100MG CAPSULE PO SCH ×2 (08:26→22:46)
[2021-07-22] MEDS: FUROSEMIDE 40 MG TAB PO SCH (08:26)
[2021-07-22] MEDS: ASPIRIN 81 MG CHEW TABLET PO SCH (08:26)
[2021-07-22] MEDS: SIMETHICONE 80MG CHEW TAB PO SCH ×3 (08:26→22:46)
[2021-07-22] MEDS: HEPARIN SOD (PORCINE) 5000UNITS/ML 1ML VIAL/SYRINGE SQ SCH ×2 (08:28→22:48)
[2021-07-22] MEDS: LEVEMIR (INSULIN DETEMIR) 1 UNITS/0.01ML SC SCH (08:28)
[2021-07-22] MEDS: INSULIN LISPRO (NovoLOG) PER UNIT SC SCH ×4 (08:28→22:44)
[2021-07-22] MEDS: SIMVASTATIN 20 MG TAB PO SCH (22:46)
[2021-07-23 06:00] VITALS: BP 146/96
[2021-07-23] MEDS: INSULIN LISPRO (NovoLOG) PER UNIT SC SCH ×5 (07:30→21:00)
[2021-07-23] MEDS: SIMETHICONE 80MG CHEW TAB PO SCH ×4 (08:32→22:50)
[2021-07-23] MEDS: DOCUSATE SODIUM 100MG CAPSULE PO SCH ×3 (08:32→22:50)
[2021-07-23] MEDS: FUROSEMIDE 40 MG TAB PO SCH ×2 (08:32→09:00)
[2021-07-23] MEDS: ASPIRIN 81 MG CHEW TABLET PO SCH ×2 (08:33→09:00)
[2021-07-23] MEDS: LEVEMIR (INSULIN DETEMIR) 1 UNITS/0.01ML SC SCH ×2 (08:34→09:00)
[2021-07-23] MEDS: HEPARIN SOD (PORCINE) 5000UNITS/ML 1ML VIAL/SYRINGE SQ SCH ×3 (08:34→22:53)
[2021-07-23] MEDS: SIMVASTATIN 20 MG TAB PO SCH (22:50)
[2021-07-24 04:44] VITALS: BP 156/83
[2021-07-24] MEDS: INSULIN LISPRO (NovoLOG) PER UNIT SC SCH ×4 (07:30→19:45)
[2021-07-24] MEDS: DOCUSATE SODIUM 100MG CAPSULE PO SCH ×2 (08:49→19:49)
[2021-07-24] MEDS: ASPIRIN 81 MG CHEW TABLET PO SCH (08:49)
[2021-07-24] MEDS: LEVEMIR (INSULIN DETEMIR) 1 UNITS/0.01ML SC SCH (08:50)
[2021-07-24] MEDS: FUROSEMIDE 40 MG TAB PO SCH (08:50)
[2021-07-24] MEDS: SIMETHICONE 80MG CHEW TAB PO SCH ×3 (08:50→19:49)
[2021-07-24] MEDS: HEPARIN SOD (PORCINE) 5000UNITS/ML 1ML VIAL/SYRINGE SQ SCH ×2 (08:51→19:50)
[2021-07-24] MEDS: SIMVASTATIN 20 MG TAB PO SCH (19:49)
[2021-07-25 05:58] LABS: HEMATOCRIT 35.9 % (42.0-52.0); HEMOGLOBIN 12.1 g/dl (13.5-17.5); MEAN CORPUSCULAR HEMOGLOBIN 29.7 pg (27.0-33.0); MEAN CORPUSCULAR HGB CONC 33.7 g/dl (32.0-36.5); MEAN CORPUSCULAR VOLUME 88.2 fl (80.0-96.0); PLATELET COUNT, AUTOMATED 202 10^3/uL (150-450); RED BLOOD COUNT 4.07 10^6/uL (4.30-6.10); WHITE BLOOD COUNT 7.9 10^3/uL (4.0-10.0)
[2021-07-25 06:23] LABS: CALCIUM LEVEL 8.9 MG/DL (8.8-10.2); CREATININE FOR GFR 1.86 MG/DL (0.70-1.30); GLOMERULAR FILTRATION RATE 38.3 (>42); POTASSIUM SERUM 4.7 MEQ/L (3.5-5.1)
[2021-07-25 08:19] VITALS: BP 161/69
[2021-07-25] MEDS: DOCUSATE SODIUM 100MG CAPSULE PO SCH ×2 (08:37→20:46)
[2021-07-25] MEDS: SIMETHICONE 80MG CHEW TAB PO SCH ×3 (08:37→20:46)
[2021-07-25] MEDS: ASPIRIN 81 MG CHEW TABLET PO SCH (08:37)
[2021-07-25] MEDS: FUROSEMIDE 40 MG TAB PO SCH (08:38)
[2021-07-25] MEDS: LEVEMIR (INSULIN DETEMIR) 1 UNITS/0.01ML SC SCH (08:38)
[2021-07-25] MEDS: INSULIN LISPRO (NovoLOG) PER UNIT SC SCH ×4 (08:39→20:48)
[2021-07-25] MEDS: HEPARIN SOD (PORCINE) 5000UNITS/ML 1ML VIAL/SYRINGE SQ SCH ×2 (08:40→20:47)
[2021-07-25 15:07] VITALS: BP 150/84
[2021-07-25 20:47] VITALS: BP 168/68
[2021-07-25] MEDS: SIMVASTATIN 20 MG TAB PO SCH (20:47)
[2021-07-26 06:00] VITALS: BP 150/75
[2021-07-26] MEDS: ASPIRIN 81 MG CHEW TABLET PO SCH (08:02)
[2021-07-26] MEDS: DOCUSATE SODIUM 100MG CAPSULE PO SCH ×2 (08:03→20:24)
[2021-07-26] MEDS: FUROSEMIDE 40 MG TAB PO SCH (08:03)
[2021-07-26] MEDS: SIMETHICONE 80MG CHEW TAB PO SCH ×3 (08:03→20:24)
[2021-07-26] MEDS: LEVEMIR (INSULIN DETEMIR) 1 UNITS/0.01ML SC SCH (08:05)
[2021-07-26] MEDS: HEPARIN SOD (PORCINE) 5000UNITS/ML 1ML VIAL/SYRINGE SQ SCH ×2 (08:05→20:25)
[2021-07-26] MEDS: INSULIN LISPRO (NovoLOG) PER UNIT SC SCH ×4 (08:05→20:21)
[2021-07-26] MEDS: SIMVASTATIN 20 MG TAB PO SCH (20:24)
[2021-07-27 04:59] VITALS: BP 149/51
[2021-07-27] MEDS: SIMETHICONE 80MG CHEW TAB PO SCH ×3 (09:02→22:15)
[2021-07-27] MEDS: DOCUSATE SODIUM 100MG CAPSULE PO SCH ×2 (09:02→22:16)
[2021-07-27] MEDS: ASPIRIN 81 MG CHEW TABLET PO SCH (09:03)
[2021-07-27] MEDS: FUROSEMIDE 40 MG TAB PO SCH (09:03)
[2021-07-27] MEDS: INSULIN LISPRO (NovoLOG) PER UNIT SC SCH ×4 (09:04→21:00)
[2021-07-27] MEDS: LEVEMIR (INSULIN DETEMIR) 1 UNITS/0.01ML SC SCH (09:04)
[2021-07-27] MEDS: HEPARIN SOD (PORCINE) 5000UNITS/ML 1ML VIAL/SYRINGE SQ SCH ×2 (09:04→22:16)
[2021-07-27] MEDS: SIMVASTATIN 20 MG TAB PO SCH (22:16)
[2021-07-28 05:41] VITALS: BP 143/58
[2021-07-28 06:33] LABS: HEMATOCRIT 38.1 % (42.0-52.0); HEMOGLOBIN 12.6 g/dl (13.5-17.5); MEAN CORPUSCULAR HEMOGLOBIN 29.5 pg (27.0-33.0); MEAN CORPUSCULAR HGB CONC 33.1 g/dl (32.0-36.5); MEAN CORPUSCULAR VOLUME 89.2 fl (80.0-96.0); PLATELET COUNT, AUTOMATED 227 10^3/uL (150-450); RED BLOOD COUNT 4.27 10^6/uL (4.30-6.10); WHITE BLOOD COUNT 7.3 10^3/uL (4.0-10.0)
[2021-07-28 06:57] LABS: CALCIUM LEVEL 9.4 MG/DL (8.8-10.2); CREATININE FOR GFR 1.81 MG/DL (0.70-1.30); GLOMERULAR FILTRATION RATE 39.5 (>42); MAGNESIUM LEVEL 2.2 MG/DL (1.8-2.4); POTASSIUM SERUM 4.7 MEQ/L (3.5-5.1)
[2021-07-28] MEDS: INSULIN LISPRO (NovoLOG) PER UNIT SC SCH ×4 (07:30→20:29)
[2021-07-28] MEDS: SIMETHICONE 80MG CHEW TAB PO SCH ×3 (08:33→20:30)
[2021-07-28] MEDS: DOCUSATE SODIUM 100MG CAPSULE PO SCH ×2 (08:33→20:30)
[2021-07-28] MEDS: ASPIRIN 81 MG CHEW TABLET PO SCH (08:33)
[2021-07-28] MEDS: FUROSEMIDE 40 MG TAB PO SCH (08:34)
[2021-07-28] MEDS: HEPARIN SOD (PORCINE) 5000UNITS/ML 1ML VIAL/SYRINGE SQ SCH ×2 (08:35→20:30)
[2021-07-28] MEDS: LEVEMIR (INSULIN DETEMIR) 1 UNITS/0.01ML SC SCH (08:36)
[2021-07-28] MEDS: SIMVASTATIN 20 MG TAB PO SCH (20:30)
[2021-07-29 05:44] VITALS: BP 140/56
[2021-07-29] MEDS: SIMETHICONE 80MG CHEW TAB PO SCH ×3 (10:03→20:43)
[2021-07-29] MEDS: ASPIRIN 81 MG CHEW TABLET PO SCH (10:03)
[2021-07-29] MEDS: DOCUSATE SODIUM 100MG CAPSULE PO SCH ×2 (10:03→20:43)
[2021-07-29] MEDS: FUROSEMIDE 40 MG TAB PO SCH (10:03)
[2021-07-29] MEDS: HEPARIN SOD (PORCINE) 5000UNITS/ML 1ML VIAL/SYRINGE SQ SCH ×2 (10:04→20:44)
[2021-07-29] MEDS: LEVEMIR (INSULIN DETEMIR) 1 UNITS/0.01ML SC SCH (10:05)
[2021-07-29] MEDS: INSULIN LISPRO (NovoLOG) PER UNIT SC SCH ×4 (10:06→20:44)
[2021-07-29] MEDS: SIMVASTATIN 20 MG TAB PO SCH (20:43)
[2021-07-30] MEDS: SIMETHICONE 80MG CHEW TAB PO SCH ×3 (08:24→20:43)
[2021-07-30] MEDS: DOCUSATE SODIUM 100MG CAPSULE PO SCH ×2 (08:24→20:43)
[2021-07-30] MEDS: ASPIRIN 81 MG CHEW TABLET PO SCH (08:24)
[2021-07-30] MEDS: FUROSEMIDE 40 MG TAB PO SCH (08:24)
[2021-07-30] MEDS: INSULIN LISPRO (NovoLOG) PER UNIT SC SCH ×4 (08:25→20:44)
[2021-07-30] MEDS: HEPARIN SOD (PORCINE) 5000UNITS/ML 1ML VIAL/SYRINGE SQ SCH ×2 (08:26→20:43)
[2021-07-30] MEDS: LEVEMIR (INSULIN DETEMIR) 1 UNITS/0.01ML SC SCH (08:26)
[2021-07-30] MEDS: SIMVASTATIN 20 MG TAB PO SCH (20:42)
[2021-07-31 06:34] LABS: HEMATOCRIT 34.7 % (42.0-52.0); HEMOGLOBIN 11.4 g/dl (13.5-17.5); MEAN CORPUSCULAR HEMOGLOBIN 28.9 pg (27.0-33.0); MEAN CORPUSCULAR HGB CONC 32.9 g/dl (32.0-36.5); MEAN CORPUSCULAR VOLUME 88.1 fl (80.0-96.0); PLATELET COUNT, AUTOMATED 222 10^3/uL (150-450); RED BLOOD COUNT 3.94 10^6/uL (4.30-6.10); WHITE BLOOD COUNT 7.7 10^3/uL (4.0-10.0)
[2021-07-31 06:56] LABS: CALCIUM LEVEL 8.6 MG/DL (8.8-10.2); CREATININE FOR GFR 1.79 MG/DL (0.70-1.30); GLOMERULAR FILTRATION RATE 40.1 (>42); MAGNESIUM LEVEL 2.1 MG/DL (1.8-2.4); POTASSIUM SERUM 4.6 MEQ/L (3.5-5.1)
[2021-07-31] MEDS: DOCUSATE SODIUM 100MG CAPSULE PO SCH ×2 (07:46→20:40)
[2021-07-31] MEDS: ASPIRIN 81 MG CHEW TABLET PO SCH (07:46)
[2021-07-31] MEDS: FUROSEMIDE 40 MG TAB PO SCH (07:46)
[2021-07-31] MEDS: SIMETHICONE 80MG CHEW TAB PO SCH ×3 (07:46→20:40)
[2021-07-31] MEDS: LEVEMIR (INSULIN DETEMIR) 1 UNITS/0.01ML SC SCH (07:47)
[2021-07-31] MEDS: HEPARIN SOD (PORCINE) 5000UNITS/ML 1ML VIAL/SYRINGE SQ SCH ×2 (07:47→20:39)
[2021-07-31] MEDS: INSULIN LISPRO (NovoLOG) PER UNIT SC SCH ×4 (07:48→19:33)
[2021-07-31] MEDS: SIMVASTATIN 20 MG TAB PO SCH (20:40)
[2021-08-01 06:00] VITALS: BP 120/66
[2021-08-01] MEDS: FUROSEMIDE 40 MG TAB PO SCH (08:54)
[2021-08-01] MEDS: DOCUSATE SODIUM 100MG CAPSULE PO SCH ×2 (08:54→22:07)
[2021-08-01] MEDS: SIMETHICONE 80MG CHEW TAB PO SCH ×3 (08:54→22:07)
[2021-08-01] MEDS: ASPIRIN 81 MG CHEW TABLET PO SCH (08:54)
[2021-08-01] MEDS: LEVEMIR (INSULIN DETEMIR) 1 UNITS/0.01ML SC SCH (08:57)
[2021-08-01] MEDS: HEPARIN SOD (PORCINE) 5000UNITS/ML 1ML VIAL/SYRINGE SQ SCH ×2 (08:57→22:06)
[2021-08-01] MEDS: INSULIN LISPRO (NovoLOG) PER UNIT SC SCH ×4 (08:59→21:00)
[2021-08-01] MEDS: SIMVASTATIN 20 MG TAB PO SCH (22:07)
[2021-08-02 06:00] VITALS: BP 164/62
[2021-08-02] MEDS: HEPARIN SOD (PORCINE) 5000UNITS/ML 1ML VIAL/SYRINGE SQ SCH ×2 (08:41→21:05)
[2021-08-02] MEDS: INSULIN LISPRO (NovoLOG) PER UNIT SC SCH ×4 (08:41→20:21)
[2021-08-02] MEDS: LEVEMIR (INSULIN DETEMIR) 1 UNITS/0.01ML SC SCH (08:41)
[2021-08-02] MEDS: DOCUSATE SODIUM 100MG CAPSULE PO SCH ×2 (08:42→21:06)
[2021-08-02] MEDS: ASPIRIN 81 MG CHEW TABLET PO SCH (08:45)
[2021-08-02] MEDS: FUROSEMIDE 40 MG TAB PO SCH (08:45)
[2021-08-02] MEDS: SIMETHICONE 80MG CHEW TAB PO SCH ×3 (08:46→21:05)
[2021-08-02 10:39] VITALS: BP 182/82
[2021-08-02] MEDS: NITROGLYCERIN 0.4 MG SUBL TABLET SL PRN (10:44)
[2021-08-02 10:50] VITALS: BP 131/70
[2021-08-02] MEDS: SIMVASTATIN 20 MG TAB PO SCH (21:06)
[2021-08-03 06:00] VITALS: BP_SYST 146; BP_SYST 168; BP_DIAS 67
[2021-08-03 06:16] LABS: HEMATOCRIT 35.3 % (42.0-52.0); HEMOGLOBIN 11.6 g/dl (13.5-17.5); MEAN CORPUSCULAR HEMOGLOBIN 29.2 pg (27.0-33.0); MEAN CORPUSCULAR HGB CONC 32.9 g/dl (32.0-36.5); MEAN CORPUSCULAR VOLUME 88.9 fl (80.0-96.0); PLATELET COUNT, AUTOMATED 218 10^3/uL (150-450); RED BLOOD COUNT 3.97 10^6/uL (4.30-6.10); WHITE BLOOD COUNT 7.6 10^3/uL (4.0-10.0)
[2021-08-03 06:37] LABS: CALCIUM LEVEL 9.3 MG/DL (8.8-10.2); CREATININE FOR GFR 1.6 MG/DL (0.70-1.30); GLOMERULAR FILTRATION RATE 45.6 (>42); POTASSIUM SERUM 4.8 MEQ/L (3.5-5.1)
[2021-08-03] MEDS: DOCUSATE SODIUM 100MG CAPSULE PO SCH ×2 (09:58→20:48)
[2021-08-03] MEDS: SIMETHICONE 80MG CHEW TAB PO SCH ×3 (09:59→20:48)
[2021-08-03] MEDS: FUROSEMIDE 40 MG TAB PO SCH (09:59)
[2021-08-03] MEDS: LEVEMIR (INSULIN DETEMIR) 1 UNITS/0.01ML SC SCH (10:00)
[2021-08-03] MEDS: HEPARIN SOD (PORCINE) 5000UNITS/ML 1ML VIAL/SYRINGE SQ SCH ×2 (10:00→20:47)
[2021-08-03] MEDS: INSULIN LISPRO (NovoLOG) PER UNIT SC SCH ×4 (10:01→20:49)
[2021-08-03] MEDS: ASPIRIN 81 MG CHEW TABLET PO SCH (10:01)
[2021-08-03] MEDS: SIMVASTATIN 20 MG TAB PO SCH (20:48)
[2021-08-04] MEDS: **hydrALAZINE HCL** 25 MG TAB PO PRN (04:31)
[2021-08-04 06:00] VITALS: BP 161/62
[2021-08-04] MEDS: INSULIN LISPRO (NovoLOG) PER UNIT SC SCH ×4 (07:30→21:00)
[2021-08-04 09:45] VITALS: BP 139/57
[2021-08-04] MEDS: DOCUSATE SODIUM 100MG CAPSULE PO SCH ×2 (09:56→22:02)
[2021-08-04] MEDS: LEVEMIR (INSULIN DETEMIR) 1 UNITS/0.01ML SC SCH (09:57)
[2021-08-04] MEDS: ASPIRIN 81 MG CHEW TABLET PO SCH (09:57)
[2021-08-04] MEDS: SIMETHICONE 80MG CHEW TAB PO SCH ×3 (09:57→22:02)
[2021-08-04] MEDS: FUROSEMIDE 40 MG TAB PO SCH (09:57)
[2021-08-04] MEDS: HEPARIN SOD (PORCINE) 5000UNITS/ML 1ML VIAL/SYRINGE SQ SCH ×2 (09:58→22:01)
[2021-08-04] MEDS: **hydrALAZINE** 10 MG TAB PO SCH ×2 (14:30→22:07)
[2021-08-04] MEDS: SIMVASTATIN 20 MG TAB PO SCH (22:04)
[2021-08-05] MEDS: **hydrALAZINE** 10 MG TAB PO SCH ×3 (05:18→23:24)
[2021-08-05 06:00] VITALS: BP 160/50
[2021-08-05] MEDS: LEVEMIR (INSULIN DETEMIR) 1 UNITS/0.01ML SC SCH (09:37)
[2021-08-05] MEDS: INSULIN LISPRO (NovoLOG) PER UNIT SC SCH ×4 (09:37→21:00)
[2021-08-05] MEDS: HEPARIN SOD (PORCINE) 5000UNITS/ML 1ML VIAL/SYRINGE SQ SCH ×2 (09:38→23:23)
[2021-08-05] MEDS: FUROSEMIDE 40 MG TAB PO SCH (09:38)
[2021-08-05] MEDS: SIMETHICONE 80MG CHEW TAB PO SCH ×3 (09:38→23:23)
[2021-08-05] MEDS: DOCUSATE SODIUM 100MG CAPSULE PO SCH ×2 (09:38→23:23)
[2021-08-05] MEDS: ASPIRIN 81 MG CHEW TABLET PO SCH (09:38)
[2021-08-05] MEDS: SIMVASTATIN 20 MG TAB PO SCH (23:23)
[2021-08-06 06:00] VITALS: BP 163/67
[2021-08-06] MEDS: **hydrALAZINE** 10 MG TAB PO SCH ×3 (06:06→23:25)
[2021-08-06] MEDS: LEVEMIR (INSULIN DETEMIR) 1 UNITS/0.01ML SC SCH (08:14)
[2021-08-06] MEDS: SIMETHICONE 80MG CHEW TAB PO SCH ×3 (08:14→23:23)
[2021-08-06] MEDS: INSULIN LISPRO (NovoLOG) PER UNIT SC SCH ×4 (08:14→21:00)
[2021-08-06] MEDS: ASPIRIN 81 MG CHEW TABLET PO SCH (08:14)
[2021-08-06] MEDS: DOCUSATE SODIUM 100MG CAPSULE PO SCH ×2 (08:14→23:23)
[2021-08-06] MEDS: HEPARIN SOD (PORCINE) 5000UNITS/ML 1ML VIAL/SYRINGE SQ SCH ×2 (08:15→23:24)
[2021-08-06] MEDS: FUROSEMIDE 40 MG TAB PO SCH (08:17)
[2021-08-06] MEDS: SIMVASTATIN 20 MG TAB PO SCH (23:23)
[2021-08-07 05:22] VITALS: BP 152/56
[2021-08-07] MEDS: **hydrALAZINE** 10 MG TAB PO SCH ×3 (05:52→21:36)
[2021-08-07] MEDS: ASPIRIN 81 MG CHEW TABLET PO SCH (09:40)
[2021-08-07] MEDS: FUROSEMIDE 40 MG TAB PO SCH (09:41)
[2021-08-07] MEDS: DOCUSATE SODIUM 100MG CAPSULE PO SCH ×2 (09:43→21:00)
[2021-08-07] MEDS: SIMETHICONE 80MG CHEW TAB PO SCH ×3 (09:43→21:00)
[2021-08-07] MEDS: LEVEMIR (INSULIN DETEMIR) 1 UNITS/0.01ML SC SCH (09:43)
[2021-08-07] MEDS: HEPARIN SOD (PORCINE) 5000UNITS/ML 1ML VIAL/SYRINGE SQ SCH ×2 (09:44→21:00)
[2021-08-07] MEDS: INSULIN LISPRO (NovoLOG) PER UNIT SC SCH ×4 (09:45→21:00)
[2021-08-07 09:49] VITALS: BP 172/64
[2021-08-07 19:07] VITALS: BP 157/62
[2021-08-07] MEDS: SIMVASTATIN 20 MG TAB PO SCH (21:00)
[2021-08-08] MEDS: **hydrALAZINE** 10 MG TAB PO SCH ×3 (06:00→22:00)
[2021-08-08 06:04] LABS: HEMATOCRIT 33.9 % (42.0-52.0); HEMOGLOBIN 11.3 g/dl (13.5-17.5); MEAN CORPUSCULAR HEMOGLOBIN 29.2 pg (27.0-33.0); MEAN CORPUSCULAR HGB CONC 33.3 g/dl (32.0-36.5); MEAN CORPUSCULAR VOLUME 87.6 fl (80.0-96.0); PLATELET COUNT, AUTOMATED 217 10^3/uL (150-450); RED BLOOD COUNT 3.87 10^6/uL (4.30-6.10); WHITE BLOOD COUNT 7.1 10^3/uL (4.0-10.0)
[2021-08-08 06:28] LABS: ALBUMIN 2.6 GM/DL (3.2-5.2); BILIRUBIN,TOTAL 0.2 MG/DL (0.2-1.0); CALCIUM LEVEL 8.8 MG/DL (8.8-10.2); CREATININE FOR GFR 2.13 MG/DL (0.70-1.30); GLOMERULAR FILTRATION RATE 32.8 (>42); POTASSIUM SERUM 4.8 MEQ/L (3.5-5.1); TOTAL PROTEIN 6.4 GM/DL (6.4-8.2)
[2021-08-08] MEDS: LEVEMIR (INSULIN DETEMIR) 1 UNITS/0.01ML SC SCH (08:36)
[2021-08-08] MEDS: ASPIRIN 81 MG CHEW TABLET PO SCH (08:37)
[2021-08-08] MEDS: SIMETHICONE 80MG CHEW TAB PO SCH ×3 (08:37→21:00)
[2021-08-08] MEDS: FUROSEMIDE 40 MG TAB PO SCH (08:37)
[2021-08-08] MEDS: HEPARIN SOD (PORCINE) 5000UNITS/ML 1ML VIAL/SYRINGE SQ SCH ×2 (08:37→21:00)
[2021-08-08] MEDS: DOCUSATE SODIUM 100MG CAPSULE PO SCH ×2 (08:37→21:00)
[2021-08-08] MEDS: INSULIN LISPRO (NovoLOG) PER UNIT SC SCH ×4 (08:39→20:52)
[2021-08-08] MEDS: SIMVASTATIN 20 MG TAB PO SCH (21:00)
[2021-08-09 05:19] VITALS: BP 159/65
[2021-08-09] MEDS: **hydrALAZINE** 10 MG TAB PO SCH (06:00)
[2021-08-09] MEDS: DOCUSATE SODIUM 100MG CAPSULE PO SCH ×2 (08:08→20:36)
[2021-08-09] MEDS: SIMETHICONE 80MG CHEW TAB PO SCH ×3 (08:08→20:36)
[2021-08-09] MEDS: ASPIRIN 81 MG CHEW TABLET PO SCH (08:08)
[2021-08-09] MEDS: LEVEMIR (INSULIN DETEMIR) 1 UNITS/0.01ML SC SCH (08:08)
[2021-08-09] MEDS: FUROSEMIDE 40 MG TAB PO SCH (08:08)
[2021-08-09] MEDS: INSULIN LISPRO (NovoLOG) PER UNIT SC SCH ×4 (08:09→20:33)
[2021-08-09] MEDS: HEPARIN SOD (PORCINE) 5000UNITS/ML 1ML VIAL/SYRINGE SQ SCH ×2 (08:09→20:36)
[2021-08-09 13:44] LABS: APPEARANCE, URINE CLEAR (CLEAR); BACTERIA, URINE AUTO NEGATIVE (NEGATIVE); BILIRUBIN, URINE AUTO NEGATIVE (NEGATIVE); BLOOD, URINE BLOOD NEGATIVE (NEGATIVE); COLOR, URINE STRAW (YELLOW); GLUCOSE, URINE (UA) AUTO 1+ mg/dL (NEGATIVE); KETONE, URINE AUTO NEGATIVE (NEGATIVE); LEUKOCYTE ESTERASE, URINE AUTO NEGATIVE (NEGATIVE); MUCUS, URINE SMALL (NEGATIVE); NITRITE, URINE AUTO NEGATIVE (NEGATIVE); PROTEIN, URINE AUTO 2+ mg/dL (NEGATIVE); RBC, URINE AUTO 1 /HPF (0-3); SQUAMOUS EPITHELIAL CELL UR AU 0 /HPF (0-6); UROBILINOGEN, URINE AUTO 0.2 mg/dL (0.0-2.0); WBC, URINE AUTO 1 /HPF (0-3)
[2021-08-09 14:04] LABS: TOTAL PROTEIN,RANDOM URINE 101.1 MG/DL (0.0-12.0)
[2021-08-09] MEDS: **hydrALAZINE HCL** 25 MG TAB PO SCH ×2 (15:05→20:36)
[2021-08-09] MEDS: SIMVASTATIN 20 MG TAB PO SCH (20:36)
[2021-08-10 04:39] VITALS: BP 148/76
[2021-08-10] MEDS: **hydrALAZINE HCL** 25 MG TAB PO SCH ×3 (05:56→22:00)
[2021-08-10 06:23] LABS: ALBUMIN 2.7 GM/DL (3.2-5.2); CALCIUM LEVEL 9.4 MG/DL (8.8-10.2); CREATININE FOR GFR 1.66 MG/DL (0.70-1.30); GLOMERULAR FILTRATION RATE 43.7 (>42); PHOSPHORUS LEVEL 4.6 MG/DL (2.5-4.9); POTASSIUM SERUM 4.7 MEQ/L (3.5-5.1)
[2021-08-10] MEDS: ASPIRIN 81 MG CHEW TABLET PO SCH (09:45)
[2021-08-10] MEDS: FUROSEMIDE 20 MG TAB PO SCH (09:46)
[2021-08-10] MEDS: DOCUSATE SODIUM 100MG CAPSULE PO SCH ×2 (09:46→21:00)
[2021-08-10] MEDS: HEPARIN SOD (PORCINE) 5000UNITS/ML 1ML VIAL/SYRINGE SQ SCH ×2 (09:46→21:00)
[2021-08-10] MEDS: INSULIN LISPRO (NovoLOG) PER UNIT SC SCH ×4 (09:46→21:00)
[2021-08-10] MEDS: SIMETHICONE 80MG CHEW TAB PO SCH ×3 (09:46→21:00)
[2021-08-10] MEDS: LEVEMIR (INSULIN DETEMIR) 1 UNITS/0.01ML SC SCH (09:46)
[2021-08-10 11:42] LABS: PTH INTACT 40.7 PG/ML (18.5-88.0)
[2021-08-10] MEDS: SIMVASTATIN 20 MG TAB PO SCH (21:00)
[2021-08-11 06:49] VITALS: BP 149/55
[2021-08-11] MEDS: **hydrALAZINE HCL** 25 MG TAB PO SCH ×3 (06:52→21:31)
[2021-08-11] MEDS: ASPIRIN 81 MG CHEW TABLET PO SCH (08:24)
[2021-08-11] MEDS: DOCUSATE SODIUM 100MG CAPSULE PO SCH ×2 (08:24→21:30)
[2021-08-11] MEDS: FUROSEMIDE 20 MG TAB PO SCH (08:24)
[2021-08-11] MEDS: SIMETHICONE 80MG CHEW TAB PO SCH ×3 (08:24→21:30)
[2021-08-11] MEDS: INSULIN LISPRO (NovoLOG) PER UNIT SC SCH ×3 (08:25→17:00)
[2021-08-11] MEDS: LEVEMIR (INSULIN DETEMIR) 1 UNITS/0.01ML SC SCH (08:25)
[2021-08-11] MEDS: HEPARIN SOD (PORCINE) 5000UNITS/ML 1ML VIAL/SYRINGE SQ SCH ×2 (08:26→21:30)
[2021-08-11 12:49] LABS: HEMATOCRIT 36.1 % (42.0-52.0); MEAN CORPUSCULAR HEMOGLOBIN 29.6 pg (27.0-33.0); MEAN CORPUSCULAR HGB CONC 33.2 g/dl (32.0-36.5); MEAN CORPUSCULAR VOLUME 89.1 fl (80.0-96.0); PLATELET COUNT, AUTOMATED 211 10^3/uL (150-450); RED BLOOD COUNT 4.05 10^6/uL (4.30-6.10)
[2021-08-11] MEDS: SIMVASTATIN 20 MG TAB PO SCH (21:30)
[2021-08-12 06:00] VITALS: BP 152/58
[2021-08-12] MEDS: **hydrALAZINE HCL** 25 MG TAB PO SCH (06:40)
[2021-08-12 06:52] LABS: CALCIUM LEVEL 9.3 MG/DL (8.8-10.2); CREATININE FOR GFR 1.65 MG/DL (0.70-1.30); POTASSIUM SERUM 4.5 MEQ/L (3.5-5.1)
[2021-08-12] MEDS: INSULIN LISPRO (NovoLOG) PER UNIT SC SCH ×2 (07:00→17:45)
[2021-08-12] MEDS: ASPIRIN 81 MG CHEW TABLET PO SCH (10:26)
[2021-08-12] MEDS: HEPARIN SOD (PORCINE) 5000UNITS/ML 1ML VIAL/SYRINGE SQ SCH ×2 (10:27→19:50)
[2021-08-12] MEDS: SIMETHICONE 80MG CHEW TAB PO SCH ×3 (10:27→19:48)
[2021-08-12] MEDS: FUROSEMIDE 20 MG TAB PO SCH (10:27)
[2021-08-12] MEDS: DOCUSATE SODIUM 100MG CAPSULE PO SCH ×2 (10:27→19:49)
[2021-08-12] MEDS: LEVEMIR (INSULIN DETEMIR) 1 UNITS/0.01ML SC SCH (10:28)
[2021-08-12] MEDS: SIMVASTATIN 20 MG TAB PO SCH (19:49)
[2021-08-12] MEDS: **hydrALAZINE** 50 MG TAB PO SCH (19:49)
[2021-08-13 05:06] VITALS: BP 150/60
[2021-08-13] MEDS: INSULIN LISPRO (NovoLOG) PER UNIT SC SCH ×2 (07:00→16:36)
[2021-08-13] MEDS: ASPIRIN 81 MG CHEW TABLET PO SCH (08:47)
[2021-08-13] MEDS: FUROSEMIDE 20 MG TAB PO SCH (08:48)
[2021-08-13] MEDS: SIMETHICONE 80MG CHEW TAB PO SCH ×3 (08:48→19:51)
[2021-08-13] MEDS: DOCUSATE SODIUM 100MG CAPSULE PO SCH ×2 (08:48→19:51)
[2021-08-13] MEDS: **hydrALAZINE** 50 MG TAB PO SCH ×2 (08:48→19:52)
[2021-08-13] MEDS: LEVEMIR (INSULIN DETEMIR) 1 UNITS/0.01ML SC SCH (09:00)
[2021-08-13] MEDS: HEPARIN SOD (PORCINE) 5000UNITS/ML 1ML VIAL/SYRINGE SQ SCH ×2 (09:00→19:51)
[2021-08-13] MEDS: SIMVASTATIN 20 MG TAB PO SCH (19:51)
[2021-08-14 05:23] VITALS: BP 163/65
[2021-08-14] MEDS: INSULIN LISPRO (NovoLOG) PER UNIT SC SCH ×3 (07:00→16:29)
[2021-08-14] MEDS: DOCUSATE SODIUM 100MG CAPSULE PO SCH ×2 (08:35→21:15)
[2021-08-14] MEDS: SIMETHICONE 80MG CHEW TAB PO SCH ×3 (08:35→21:17)
[2021-08-14] MEDS: ASPIRIN 81 MG CHEW TABLET PO SCH (08:35)
[2021-08-14] MEDS: HEPARIN SOD (PORCINE) 5000UNITS/ML 1ML VIAL/SYRINGE SQ SCH ×2 (08:35→21:15)
[2021-08-14] MEDS: FUROSEMIDE 20 MG TAB PO SCH (08:35)
[2021-08-14] MEDS: LEVEMIR (INSULIN DETEMIR) 1 UNITS/0.01ML SC SCH (08:35)
[2021-08-14] MEDS: **hydrALAZINE** 50 MG TAB PO SCH ×3 (08:36→21:15)
[2021-08-14] MEDS ORDERED: SODIUM CHLORIDE NASAL 0.65% SPRAY BTL (OCEAN) PRN (12:20)
[2021-08-14] MEDS ORDERED: CHLORASEPTIC SPRAY MT PRN (12:25)
[2021-08-14] MEDS: guaiFENesin 200 MG TAB PO PRN (13:26)
[2021-08-14] MEDS: ACETAMINOPHEN TAB 650MG DOSE (2X325MG) PO PRN (13:27)
[2021-08-14] MEDS ORDERED: traMADol 50 MG TAB PO PRN (19:50)
[2021-08-14] MEDS: CEPACOL LOZENGE PO PRN (21:17)
[2021-08-14] MEDS: SIMVASTATIN 20 MG TAB PO SCH (21:17)
[2021-08-15 06:34] VITALS: BP 157/51
[2021-08-15] MEDS: FUROSEMIDE 20 MG TAB PO SCH (08:00)
[2021-08-15] MEDS: ASPIRIN 81 MG CHEW TABLET PO SCH (08:00)
[2021-08-15] MEDS: SIMETHICONE 80MG CHEW TAB PO SCH ×3 (08:00→20:08)
[2021-08-15] MEDS: DOCUSATE SODIUM 100MG CAPSULE PO SCH ×2 (08:00→20:08)
[2021-08-15] MEDS: LEVEMIR (INSULIN DETEMIR) 1 UNITS/0.01ML SC SCH (08:01)
[2021-08-15] MEDS: **hydrALAZINE** 50 MG TAB PO SCH ×3 (08:01→21:00)
[2021-08-15] MEDS: HEPARIN SOD (PORCINE) 5000UNITS/ML 1ML VIAL/SYRINGE SQ SCH ×2 (08:02→20:08)
[2021-08-15] MEDS: INSULIN LISPRO (NovoLOG) PER UNIT SC SCH ×2 (08:02→16:52)
[2021-08-15] MEDS: SIMVASTATIN 20 MG TAB PO SCH (20:08)
[2021-08-16 06:15] LABS: BASO # 0.1 10^3/uL (0.0-0.2); BASO % 0.9 % (0.0-1.0); EOS # 0.1 10^3/uL (0.0-0.5); EOS % 1.6 % (0.0-3.0); HEMATOCRIT 34.1 % (42.0-52.0); HEMOGLOBIN 11.4 g/dl (13.5-17.5); LYMPH # 1.2 10^3/uL (1.5-5.0); LYMPH % 14.6 % (24.0-44.0); MEAN CORPUSCULAR HEMOGLOBIN 29.9 pg (27.0-33.0); MEAN CORPUSCULAR HGB CONC 33.4 g/dl (32.0-36.5); MEAN CORPUSCULAR VOLUME 89.5 fl (80.0-96.0); MONO # 0.9 10^3/uL (0.0-0.8); MONO % 11.4 % (2.0-8.0); NEUTROPHILS # 5.6 10^3/uL (1.5-8.5); PLATELET COUNT, AUTOMATED 185 10^3/uL (150-450); RED BLOOD COUNT 3.81 10^6/uL (4.30-6.10); WHITE BLOOD COUNT 7.9 10^3/uL (4.0-10.0)
[2021-08-16 06:40] LABS: ALBUMIN 2.7 GM/DL (3.2-5.2); BILIRUBIN,TOTAL 0.5 MG/DL (0.2-1.0); CALCIUM LEVEL 9.1 MG/DL (8.8-10.2); CREATININE FOR GFR 1.73 MG/DL (0.70-1.30); GLOMERULAR FILTRATION RATE 41.7 (>42); POTASSIUM SERUM 4.4 MEQ/L (3.5-5.1); TOTAL PROTEIN 6.5 GM/DL (6.4-8.2)
[2021-08-16] MEDS: FUROSEMIDE 20 MG TAB PO SCH (08:06)
[2021-08-16] MEDS: SIMETHICONE 80MG CHEW TAB PO SCH ×3 (08:06→20:17)
[2021-08-16] MEDS: DOCUSATE SODIUM 100MG CAPSULE PO SCH ×2 (08:06→20:17)
[2021-08-16] MEDS: ASPIRIN 81 MG CHEW TABLET PO SCH (08:06)
[2021-08-16] MEDS: INSULIN LISPRO (NovoLOG) PER UNIT SC SCH ×2 (08:07→17:00)
[2021-08-16] MEDS: LEVEMIR (INSULIN DETEMIR) 1 UNITS/0.01ML SC SCH ×2 (08:07→08:10)
[2021-08-16] MEDS: **hydrALAZINE** 50 MG TAB PO SCH ×3 (08:08→20:18)
[2021-08-16] MEDS: HEPARIN SOD (PORCINE) 5000UNITS/ML 1ML VIAL/SYRINGE SQ SCH ×2 (08:09→20:17)
[2021-08-16] MEDS: SIMVASTATIN 20 MG TAB PO SCH (20:17)
[2021-08-17 06:00] VITALS: BP 161/73
[2021-08-17] MEDS: guaiFENesin 200 MG TAB PO PRN ×2 (06:31→16:15)
[2021-08-17] MEDS: CEPACOL LOZENGE PO PRN (06:31)
[2021-08-17] MEDS: INSULIN LISPRO (NovoLOG) PER UNIT SC SCH ×2 (07:00→17:00)
[2021-08-17] MEDS: LEVEMIR (INSULIN DETEMIR) 1 UNITS/0.01ML SC SCH (09:00)
[2021-08-17] MEDS: HEPARIN SOD (PORCINE) 5000UNITS/ML 1ML VIAL/SYRINGE SQ SCH ×2 (09:05→21:13)
[2021-08-17] MEDS: FUROSEMIDE 20 MG TAB PO SCH (09:05)
[2021-08-17] MEDS: **hydrALAZINE** 50 MG TAB PO SCH ×3 (09:06→21:14)
[2021-08-17] MEDS: ASPIRIN 81 MG CHEW TABLET PO SCH (09:06)
[2021-08-17] MEDS: DOCUSATE SODIUM 100MG CAPSULE PO SCH ×2 (09:06→21:14)
[2021-08-17] MEDS: SIMETHICONE 80MG CHEW TAB PO SCH ×3 (09:06→21:13)
[2021-08-17] MEDS: SIMVASTATIN 20 MG TAB PO SCH (21:15)
[2021-08-18] MEDS: INSULIN LISPRO (NovoLOG) PER UNIT SC SCH ×2 (05:45→17:48)
[2021-08-18] MEDS: guaiFENesin 200 MG TAB PO PRN ×2 (05:45→16:34)
[2021-08-18 06:00] VITALS: BP 146/50
[2021-08-18] MEDS: ASPIRIN 81 MG CHEW TABLET PO SCH (10:14)
[2021-08-18] MEDS: SIMETHICONE 80MG CHEW TAB PO SCH ×3 (10:14→21:08)
[2021-08-18] MEDS: DOCUSATE SODIUM 100MG CAPSULE PO SCH ×2 (10:14→21:08)
[2021-08-18] MEDS: FUROSEMIDE 20 MG TAB PO SCH (10:15)
[2021-08-18] MEDS: LEVEMIR (INSULIN DETEMIR) 1 UNITS/0.01ML SC SCH (10:15)
[2021-08-18] MEDS: **hydrALAZINE** 50 MG TAB PO SCH ×3 (10:15→21:10)
[2021-08-18] MEDS: HEPARIN SOD (PORCINE) 5000UNITS/ML 1ML VIAL/SYRINGE SQ SCH ×2 (10:16→21:08)
[2021-08-18] MEDS: SIMVASTATIN 20 MG TAB PO SCH (21:08)
[2021-08-19 06:00] VITALS: BP 157/67
[2021-08-19] MEDS: INSULIN LISPRO (NovoLOG) PER UNIT SC SCH ×2 (06:25→17:31)
[2021-08-19] MEDS: HEPARIN SOD (PORCINE) 5000UNITS/ML 1ML VIAL/SYRINGE SQ SCH ×2 (08:21→20:01)
[2021-08-19] MEDS: DOCUSATE SODIUM 100MG CAPSULE PO SCH ×2 (08:21→20:03)
[2021-08-19] MEDS: LEVEMIR (INSULIN DETEMIR) 1 UNITS/0.01ML SC SCH (08:22)
[2021-08-19] MEDS: FUROSEMIDE 20 MG TAB PO SCH (08:22)
[2021-08-19] MEDS: ASPIRIN 81 MG CHEW TABLET PO SCH (08:22)
[2021-08-19] MEDS: **hydrALAZINE** 50 MG TAB PO SCH ×3 (08:22→20:04)
[2021-08-19] MEDS: SIMETHICONE 80MG CHEW TAB PO SCH ×3 (08:22→20:03)
[2021-08-19] MEDS: SIMVASTATIN 20 MG TAB PO SCH (20:03)
[2021-08-20 05:55] VITALS: BP 159/66
[2021-08-20] MEDS: HEPARIN SOD (PORCINE) 5000UNITS/ML 1ML VIAL/SYRINGE SQ SCH ×2 (08:28→22:27)
[2021-08-20] MEDS: LEVEMIR (INSULIN DETEMIR) 1 UNITS/0.01ML SC SCH (08:29)
[2021-08-20] MEDS: INSULIN LISPRO (NovoLOG) PER UNIT SC SCH ×2 (08:29→17:53)
[2021-08-20] MEDS: FUROSEMIDE 20 MG TAB PO SCH (08:29)
[2021-08-20] MEDS: **hydrALAZINE** 50 MG TAB PO SCH ×3 (08:30→22:28)
[2021-08-20] MEDS: SIMETHICONE 80MG CHEW TAB PO SCH ×3 (08:30→22:27)
[2021-08-20] MEDS: ASPIRIN 81 MG CHEW TABLET PO SCH (08:30)
[2021-08-20] MEDS: DOCUSATE SODIUM 100MG CAPSULE PO SCH ×2 (08:30→22:27)
[2021-08-20] MEDS: SIMVASTATIN 20 MG TAB PO SCH (22:27)
[2021-08-21] MEDS: SIMETHICONE 80MG CHEW TAB PO SCH ×3 (07:53→21:06)
[2021-08-21] MEDS: FUROSEMIDE 20 MG TAB PO SCH (07:53)
[2021-08-21] MEDS: ASPIRIN 81 MG CHEW TABLET PO SCH (07:53)
[2021-08-21] MEDS: DOCUSATE SODIUM 100MG CAPSULE PO SCH ×2 (07:53→21:06)
[2021-08-21] MEDS: **hydrALAZINE** 50 MG TAB PO SCH ×3 (07:53→21:09)
[2021-08-21] MEDS: LEVEMIR (INSULIN DETEMIR) 1 UNITS/0.01ML SC SCH (07:54)
[2021-08-21] MEDS: HEPARIN SOD (PORCINE) 5000UNITS/ML 1ML VIAL/SYRINGE SQ SCH ×2 (07:54→21:06)
[2021-08-21] MEDS: INSULIN LISPRO (NovoLOG) PER UNIT SC SCH ×2 (07:55→17:27)
[2021-08-21 20:35] VITALS: BP 140/72
[2021-08-21] MEDS: SIMVASTATIN 20 MG TAB PO SCH (21:07)
[2021-08-22 06:48] VITALS: BP 141/72
[2021-08-22] MEDS: INSULIN LISPRO (NovoLOG) PER UNIT SC SCH ×2 (07:44→17:23)
[2021-08-22] MEDS: HEPARIN SOD (PORCINE) 5000UNITS/ML 1ML VIAL/SYRINGE SQ SCH ×2 (07:57→21:12)
[2021-08-22] MEDS: LEVEMIR (INSULIN DETEMIR) 1 UNITS/0.01ML SC SCH (07:57)
[2021-08-22] MEDS: SIMETHICONE 80MG CHEW TAB PO SCH ×3 (07:58→21:12)
[2021-08-22] MEDS: ASPIRIN 81 MG CHEW TABLET PO SCH (07:58)
[2021-08-22] MEDS: **hydrALAZINE** 50 MG TAB PO SCH ×3 (07:58→21:15)
[2021-08-22] MEDS: DOCUSATE SODIUM 100MG CAPSULE PO SCH ×2 (07:59→21:12)
[2021-08-22] MEDS: FUROSEMIDE 20 MG TAB PO SCH (07:59)
[2021-08-22] MEDS: SIMVASTATIN 20 MG TAB PO SCH (21:12)
[2021-08-23 06:00] VITALS: BP 156/63
[2021-08-23] MEDS: INSULIN LISPRO (NovoLOG) PER UNIT SC SCH ×2 (08:58→16:56)
[2021-08-23] MEDS: **hydrALAZINE** 50 MG TAB PO SCH ×3 (08:59→20:58)
[2021-08-23] MEDS: SIMETHICONE 80MG CHEW TAB PO SCH ×3 (08:59→20:57)
[2021-08-23] MEDS: LEVEMIR (INSULIN DETEMIR) 1 UNITS/0.01ML SC SCH (08:59)
[2021-08-23] MEDS: FUROSEMIDE 20 MG TAB PO SCH (08:59)
[2021-08-23] MEDS: DOCUSATE SODIUM 100MG CAPSULE PO SCH ×2 (08:59→20:57)
[2021-08-23] MEDS: ASPIRIN 81 MG CHEW TABLET PO SCH (08:59)
[2021-08-23] MEDS: HEPARIN SOD (PORCINE) 5000UNITS/ML 1ML VIAL/SYRINGE SQ SCH ×2 (09:00→20:56)
[2021-08-23] MEDS: SIMVASTATIN 20 MG TAB PO SCH (20:57)
[2021-08-24 05:58] VITALS: BP 140/73
[2021-08-24] MEDS: LEVEMIR (INSULIN DETEMIR) 1 UNITS/0.01ML SC SCH (09:17)
[2021-08-24] MEDS: FUROSEMIDE 20 MG TAB PO SCH (09:17)
[2021-08-24] MEDS: INSULIN LISPRO (NovoLOG) PER UNIT SC SCH ×2 (09:17→17:31)
[2021-08-24] MEDS: HEPARIN SOD (PORCINE) 5000UNITS/ML 1ML VIAL/SYRINGE SQ SCH ×2 (09:18→20:21)
[2021-08-24] MEDS: SIMETHICONE 80MG CHEW TAB PO SCH ×3 (09:18→20:21)
[2021-08-24] MEDS: DOCUSATE SODIUM 100MG CAPSULE PO SCH ×2 (09:18→20:21)
[2021-08-24] MEDS: ASPIRIN 81 MG CHEW TABLET PO SCH (09:18)
[2021-08-24] MEDS: **hydrALAZINE** 50 MG TAB PO SCH ×3 (09:19→20:22)
[2021-08-24] MEDS: SIMVASTATIN 20 MG TAB PO SCH (20:22)
[2021-08-25] MEDS: LEVEMIR (INSULIN DETEMIR) 1 UNITS/0.01ML SC SCH (07:49)
[2021-08-25] MEDS: INSULIN LISPRO (NovoLOG) PER UNIT SC SCH ×2 (07:49→17:03)
[2021-08-25] MEDS: SIMETHICONE 80MG CHEW TAB PO SCH ×3 (07:50→20:32)
[2021-08-25] MEDS: HEPARIN SOD (PORCINE) 5000UNITS/ML 1ML VIAL/SYRINGE SQ SCH ×2 (07:50→20:31)
[2021-08-25] MEDS: ASPIRIN 81 MG CHEW TABLET PO SCH (07:50)
[2021-08-25] MEDS: DOCUSATE SODIUM 100MG CAPSULE PO SCH ×2 (07:50→20:32)
[2021-08-25] MEDS: **hydrALAZINE** 50 MG TAB PO SCH ×3 (07:51→20:32)
[2021-08-25] MEDS: FUROSEMIDE 20 MG TAB PO SCH (07:51)
[2021-08-25 20:00] VITALS: BP 156/60
[2021-08-25] MEDS: SIMVASTATIN 20 MG TAB PO SCH (20:32)
[2021-08-26] MEDS: INSULIN LISPRO (NovoLOG) PER UNIT SC SCH ×2 (07:56→17:44)
[2021-08-26] MEDS: LEVEMIR (INSULIN DETEMIR) 1 UNITS/0.01ML SC SCH (09:01)
[2021-08-26] MEDS: HEPARIN SOD (PORCINE) 5000UNITS/ML 1ML VIAL/SYRINGE SQ SCH ×2 (09:02→21:49)
[2021-08-26] MEDS: ASPIRIN 81 MG CHEW TABLET PO SCH (09:02)
[2021-08-26] MEDS: SIMETHICONE 80MG CHEW TAB PO SCH ×3 (09:02→21:49)
[2021-08-26] MEDS: DOCUSATE SODIUM 100MG CAPSULE PO SCH ×2 (09:02→21:49)
[2021-08-26] MEDS: **hydrALAZINE** 50 MG TAB PO SCH ×3 (09:03→21:51)
[2021-08-26] MEDS: FUROSEMIDE 20 MG TAB PO SCH (09:03)
[2021-08-26] MEDS: SIMVASTATIN 20 MG TAB PO SCH (21:49)
[2021-08-27 06:00] VITALS: BP 162/60
[2021-08-27] MEDS: INSULIN LISPRO (NovoLOG) PER UNIT SC SCH ×2 (09:32→17:40)
[2021-08-27] MEDS: LEVEMIR (INSULIN DETEMIR) 1 UNITS/0.01ML SC SCH (09:32)
[2021-08-27] MEDS: SIMETHICONE 80MG CHEW TAB PO SCH ×3 (09:33→22:25)
[2021-08-27] MEDS: DOCUSATE SODIUM 100MG CAPSULE PO SCH ×2 (09:33→22:25)
[2021-08-27] MEDS: **hydrALAZINE** 50 MG TAB PO SCH ×3 (09:33→22:28)
[2021-08-27] MEDS: ASPIRIN 81 MG CHEW TABLET PO SCH (09:33)
[2021-08-27] MEDS: FUROSEMIDE 20 MG TAB PO SCH (09:34)
[2021-08-27] MEDS: HEPARIN SOD (PORCINE) 5000UNITS/ML 1ML VIAL/SYRINGE SQ SCH ×2 (09:34→22:24)
[2021-08-27] MEDS: SIMVASTATIN 20 MG TAB PO SCH (22:25)
[2021-08-27 22:28] VITALS: BP 170/64
[2021-08-28 06:00] VITALS: BP 160/59
[2021-08-28] MEDS: LEVEMIR (INSULIN DETEMIR) 1 UNITS/0.01ML SC SCH (08:50)
[2021-08-28] MEDS: ASPIRIN 81 MG CHEW TABLET PO SCH (08:51)
[2021-08-28] MEDS: ACETAMINOPHEN TAB 650MG DOSE (2X325MG) PO PRN (08:51)
[2021-08-28] MEDS: INSULIN LISPRO (NovoLOG) PER UNIT SC SCH ×2 (08:51→17:00)
[2021-08-28] MEDS: FUROSEMIDE 20 MG TAB PO SCH (08:51)
[2021-08-28] MEDS: DOCUSATE SODIUM 100MG CAPSULE PO SCH ×2 (08:51→20:27)
[2021-08-28] MEDS: SIMETHICONE 80MG CHEW TAB PO SCH ×3 (08:51→20:27)
[2021-08-28] MEDS: HEPARIN SOD (PORCINE) 5000UNITS/ML 1ML VIAL/SYRINGE SQ SCH ×2 (08:51→20:27)
[2021-08-28] MEDS: **hydrALAZINE** 50 MG TAB PO SCH ×3 (08:53→20:28)
[2021-08-28] MEDS: SIMVASTATIN 20 MG TAB PO SCH (20:27)
[2021-08-29 06:00] VITALS: BP 151/55
[2021-08-29] MEDS: INSULIN LISPRO (NovoLOG) PER UNIT SC SCH ×2 (06:55→17:40)
[2021-08-29] MEDS: ASPIRIN 81 MG CHEW TABLET PO SCH (08:58)
[2021-08-29] MEDS: FUROSEMIDE 20 MG TAB PO SCH (08:59)
[2021-08-29] MEDS: SIMETHICONE 80MG CHEW TAB PO SCH ×3 (08:59→20:08)
[2021-08-29] MEDS: DOCUSATE SODIUM 100MG CAPSULE PO SCH ×2 (08:59→20:08)
[2021-08-29] MEDS: **hydrALAZINE** 50 MG TAB PO SCH ×3 (08:59→20:09)
[2021-08-29] MEDS: LEVEMIR (INSULIN DETEMIR) 1 UNITS/0.01ML SC SCH (09:00)
[2021-08-29] MEDS: HEPARIN SOD (PORCINE) 5000UNITS/ML 1ML VIAL/SYRINGE SQ SCH ×2 (09:00→20:08)
[2021-08-29 11:57] LABS: BASO # 0.2 10^3/uL (0.0-0.2); BASO % 1.6 % (0.0-1.0); EOS # 0.4 10^3/uL (0.0-0.5); HEMATOCRIT 37.8 % (42.0-52.0); HEMOGLOBIN 12.3 g/dl (13.5-17.5); LYMPH # 2.5 10^3/uL (1.5-5.0); LYMPH % 25.4 % (24.0-44.0); MEAN CORPUSCULAR HEMOGLOBIN 29.9 pg (27.0-33.0); MEAN CORPUSCULAR HGB CONC 32.5 g/dl (32.0-36.5); MONO # 0.6 10^3/uL (0.0-0.8); MONO % 6.5 % (2.0-8.0); NEUTROPHILS % 61.9 % (36.0-66.0); PLATELET COUNT, AUTOMATED 335 10^3/uL (150-450); RED BLOOD COUNT 4.11 10^6/uL (4.30-6.10); WHITE BLOOD COUNT 9.6 10^3/uL (4.0-10.0)
[2021-08-29 12:27] LABS: ALBUMIN 2.9 GM/DL (3.2-5.2); BILIRUBIN,TOTAL 0.2 MG/DL (0.2-1.0); CALCIUM LEVEL 10.2 MG/DL (8.8-10.2); CREATININE FOR GFR 1.94 MG/DL (0.70-1.30); GLOMERULAR FILTRATION RATE 36.5 (>42); MAGNESIUM LEVEL 2.4 MG/DL (1.8-2.4); POTASSIUM SERUM 4.9 MEQ/L (3.5-5.1); TOTAL PROTEIN 7.5 GM/DL (6.4-8.2)
[2021-08-29] MEDS: SIMVASTATIN 20 MG TAB PO SCH (20:08)
[2021-08-30 06:00] VITALS: BP 169/64
[2021-08-30] MEDS: LEVEMIR (INSULIN DETEMIR) 1 UNITS/0.01ML SC SCH (07:52)
[2021-08-30] MEDS: HEPARIN SOD (PORCINE) 5000UNITS/ML 1ML VIAL/SYRINGE SQ SCH ×2 (07:52→20:04)
[2021-08-30] MEDS: INSULIN LISPRO (NovoLOG) PER UNIT SC SCH ×2 (07:53→17:11)
[2021-08-30] MEDS: DOCUSATE SODIUM 100MG CAPSULE PO SCH ×2 (07:53→20:04)
[2021-08-30] MEDS: ASPIRIN 81 MG CHEW TABLET PO SCH (07:53)
[2021-08-30] MEDS: SIMETHICONE 80MG CHEW TAB PO SCH ×3 (07:53→20:04)
[2021-08-30] MEDS: FUROSEMIDE 20 MG TAB PO SCH (07:54)
[2021-08-30] MEDS: **hydrALAZINE** 50 MG TAB PO SCH ×3 (07:54→20:04)
[2021-08-30] MEDS: SIMVASTATIN 20 MG TAB PO SCH (20:04)
[2021-08-31] MEDS: INSULIN LISPRO (NovoLOG) PER UNIT SC SCH ×3 (06:41→17:55)
[2021-08-31] MEDS: SIMETHICONE 80MG CHEW TAB PO SCH ×3 (09:01→21:00)
[2021-08-31] MEDS: ASPIRIN 81 MG CHEW TABLET PO SCH (09:01)
[2021-08-31] MEDS: DOCUSATE SODIUM 100MG CAPSULE PO SCH ×2 (09:01→21:00)
[2021-08-31] MEDS: HEPARIN SOD (PORCINE) 5000UNITS/ML 1ML VIAL/SYRINGE SQ SCH ×2 (09:02→21:00)
[2021-08-31] MEDS: LEVEMIR (INSULIN DETEMIR) 1 UNITS/0.01ML SC SCH (09:02)
[2021-08-31] MEDS: **hydrALAZINE** 50 MG TAB PO SCH ×3 (09:03→21:00)
[2021-08-31] MEDS: FUROSEMIDE 20 MG TAB PO SCH (09:03)
[2021-08-31] MEDS: SIMVASTATIN 20 MG TAB PO SCH (21:00)
[2021-09-01 05:32] VITALS: BP 163/65
[2021-09-01] MEDS: INSULIN LISPRO (NovoLOG) PER UNIT SC SCH ×2 (09:18→17:00)
[2021-09-01] MEDS: LEVEMIR (INSULIN DETEMIR) 1 UNITS/0.01ML SC SCH (09:18)
[2021-09-01] MEDS: ASPIRIN 81 MG CHEW TABLET PO SCH (09:19)
[2021-09-01] MEDS: FUROSEMIDE 20 MG TAB PO SCH (09:19)
[2021-09-01] MEDS: DOCUSATE SODIUM 100MG CAPSULE PO SCH ×2 (09:19→21:00)
[2021-09-01] MEDS: HEPARIN SOD (PORCINE) 5000UNITS/ML 1ML VIAL/SYRINGE SQ SCH ×2 (09:19→21:01)
[2021-09-01] MEDS: **hydrALAZINE** 50 MG TAB PO SCH ×3 (09:19→21:01)
[2021-09-01] MEDS: SIMETHICONE 80MG CHEW TAB PO SCH ×3 (09:20→21:00)
[2021-09-01] MEDS: SIMVASTATIN 20 MG TAB PO SCH (21:00)
[2021-09-02 06:00] VITALS: BP 158/67
[2021-09-02] MEDS: INSULIN LISPRO (NovoLOG) PER UNIT SC SCH ×2 (07:00→17:00)
[2021-09-02] MEDS: LEVEMIR (INSULIN DETEMIR) 1 UNITS/0.01ML SC SCH (09:54)
[2021-09-02] MEDS: ASPIRIN 81 MG CHEW TABLET PO SCH (09:54)
[2021-09-02] MEDS: HEPARIN SOD (PORCINE) 5000UNITS/ML 1ML VIAL/SYRINGE SQ SCH ×2 (09:54→20:52)
[2021-09-02] MEDS: **hydrALAZINE** 50 MG TAB PO SCH ×3 (09:54→20:55)
[2021-09-02] MEDS: DOCUSATE SODIUM 100MG CAPSULE PO SCH ×2 (09:54→20:53)
[2021-09-02] MEDS: SIMETHICONE 80MG CHEW TAB PO SCH ×3 (09:54→20:53)
[2021-09-02] MEDS: FUROSEMIDE 20 MG TAB PO SCH (09:55)
[2021-09-02] MEDS: SIMVASTATIN 20 MG TAB PO SCH (20:53)
[2021-09-03 06:00] VITALS: BP 150/57
[2021-09-03] MEDS: INSULIN LISPRO (NovoLOG) PER UNIT SC SCH ×2 (08:00→16:57)
[2021-09-03] MEDS: **hydrALAZINE** 50 MG TAB PO SCH ×3 (08:01→20:15)
[2021-09-03] MEDS: DOCUSATE SODIUM 100MG CAPSULE PO SCH ×2 (08:02→20:15)
[2021-09-03] MEDS: ASPIRIN 81 MG CHEW TABLET PO SCH (08:02)
[2021-09-03] MEDS: SIMETHICONE 80MG CHEW TAB PO SCH ×3 (08:02→20:16)
[2021-09-03] MEDS: HEPARIN SOD (PORCINE) 5000UNITS/ML 1ML VIAL/SYRINGE SQ SCH ×2 (08:02→20:16)
[2021-09-03] MEDS: FUROSEMIDE 20 MG TAB PO SCH (08:02)
[2021-09-03] MEDS: LEVEMIR (INSULIN DETEMIR) 1 UNITS/0.01ML SC SCH (09:53)
[2021-09-03] MEDS: SIMVASTATIN 20 MG TAB PO SCH (20:15)
[2021-09-04 06:00] VITALS: BP 162/61
[2021-09-04] MEDS: INSULIN LISPRO (NovoLOG) PER UNIT SC SCH ×2 (07:00→17:00)
[2021-09-04] MEDS: SIMETHICONE 80MG CHEW TAB PO SCH ×3 (10:45→21:44)
[2021-09-04] MEDS: ASPIRIN 81 MG CHEW TABLET PO SCH (10:45)
[2021-09-04] MEDS: DOCUSATE SODIUM 100MG CAPSULE PO SCH ×2 (10:45→21:44)
[2021-09-04] MEDS: LEVEMIR (INSULIN DETEMIR) 1 UNITS/0.01ML SC SCH (10:46)
[2021-09-04] MEDS: HEPARIN SOD (PORCINE) 5000UNITS/ML 1ML VIAL/SYRINGE SQ SCH ×2 (10:46→21:44)
[2021-09-04] MEDS: **hydrALAZINE** 50 MG TAB PO SCH ×3 (10:47→21:45)
[2021-09-04] MEDS: FUROSEMIDE 20 MG TAB PO SCH (10:48)
[2021-09-04] MEDS: SIMVASTATIN 20 MG TAB PO SCH (21:44)
[2021-09-05] MEDS: INSULIN LISPRO (NovoLOG) PER UNIT SC SCH ×2 (06:03→17:00)
[2021-09-05 08:05] VITALS: BP 149/66
[2021-09-05] MEDS: DOCUSATE SODIUM 100MG CAPSULE PO SCH ×2 (09:44→21:45)
[2021-09-05] MEDS: LEVEMIR (INSULIN DETEMIR) 1 UNITS/0.01ML SC SCH (09:44)
[2021-09-05] MEDS: HEPARIN SOD (PORCINE) 5000UNITS/ML 1ML VIAL/SYRINGE SQ SCH ×2 (09:44→21:46)
[2021-09-05] MEDS: **hydrALAZINE** 50 MG TAB PO SCH ×3 (09:45→21:47)
[2021-09-05] MEDS: ASPIRIN 81 MG CHEW TABLET PO SCH (09:45)
[2021-09-05] MEDS: FUROSEMIDE 20 MG TAB PO SCH (09:45)
[2021-09-05] MEDS: SIMETHICONE 80MG CHEW TAB PO SCH ×3 (09:45→21:45)
[2021-09-05] MEDS: SIMVASTATIN 20 MG TAB PO SCH (21:44)
[2021-09-06] MEDS: INSULIN LISPRO (NovoLOG) PER UNIT SC SCH ×2 (06:22→17:34)
[2021-09-06] MEDS: DOCUSATE SODIUM 100MG CAPSULE PO SCH ×2 (09:47→20:55)
[2021-09-06] MEDS: FUROSEMIDE 20 MG TAB PO SCH (09:47)
[2021-09-06] MEDS: ASPIRIN 81 MG CHEW TABLET PO SCH (09:47)
[2021-09-06] MEDS: **hydrALAZINE** 50 MG TAB PO SCH ×3 (09:48→20:56)
[2021-09-06] MEDS: HEPARIN SOD (PORCINE) 5000UNITS/ML 1ML VIAL/SYRINGE SQ SCH ×2 (09:48→20:54)
[2021-09-06] MEDS: SIMETHICONE 80MG CHEW TAB PO SCH ×3 (09:48→20:55)
[2021-09-06] MEDS: LEVEMIR (INSULIN DETEMIR) 1 UNITS/0.01ML SC SCH (09:48)
[2021-09-06] MEDS: SIMVASTATIN 20 MG TAB PO SCH (20:54)
[2021-09-07 06:00] VITALS: BP 153/53
[2021-09-07] MEDS: INSULIN LISPRO (NovoLOG) PER UNIT SC SCH ×2 (06:30→17:26)
[2021-09-07] MEDS: LEVEMIR (INSULIN DETEMIR) 1 UNITS/0.01ML SC SCH (09:47)
[2021-09-07] MEDS: SIMETHICONE 80MG CHEW TAB PO SCH ×3 (09:48→21:13)
[2021-09-07] MEDS: HEPARIN SOD (PORCINE) 5000UNITS/ML 1ML VIAL/SYRINGE SQ SCH ×2 (09:48→21:14)
[2021-09-07] MEDS: FUROSEMIDE 20 MG TAB PO SCH (09:49)
[2021-09-07] MEDS: DOCUSATE SODIUM 100MG CAPSULE PO SCH ×2 (09:49→21:13)
[2021-09-07] MEDS: ASPIRIN 81 MG CHEW TABLET PO SCH (09:49)
[2021-09-07] MEDS: **hydrALAZINE** 50 MG TAB PO SCH ×3 (09:50→21:16)
[2021-09-07] MEDS ORDERED: FURO20TA2 PO (19:08)
[2021-09-07] MEDS ORDERED: INSUHUMDS SC (19:08)
[2021-09-07] MEDS ORDERED: INSUDET SC (19:08)
[2021-09-07] MEDS ORDERED: HYDR50TA PO (19:08)
[2021-09-07] MEDS: SIMVASTATIN 20 MG TAB PO SCH (21:13)
[2021-09-08 06:00] VITALS: BP 191/81
[2021-09-08] MEDS: INSULIN LISPRO (NovoLOG) PER UNIT SC SCH (07:00)
[2021-09-08] MEDS: HEPARIN SOD (PORCINE) 5000UNITS/ML 1ML VIAL/SYRINGE SQ SCH (07:45)
[2021-09-08] MEDS: ASPIRIN 81 MG CHEW TABLET PO SCH (07:45)
[2021-09-08] MEDS: SIMETHICONE 80MG CHEW TAB PO SCH (07:45)
[2021-09-08] MEDS: DOCUSATE SODIUM 100MG CAPSULE PO SCH (07:45)
[2021-09-08] MEDS: FUROSEMIDE 20 MG TAB PO SCH (07:48)
[2021-09-08] MEDS: **hydrALAZINE** 50 MG TAB PO SCH (07:50)
[2021-09-08 07:51] VITALS: BP 159/61
[2021-09-08] MEDS: LEVEMIR (INSULIN DETEMIR) 1 UNITS/0.01ML SC SCH (07:56)
== END 2021-09-08 08:16 | DRG 884 ==
LOC: M ED 10:06 → M ED INP 13:27 → EDBEDREQ 13:46 → M MS5PR 06-15 00:50 → M MSPAV 06-26 00:33
PROVIDERS: ADMIT Internal Medicine; ATTEND Internal Medicine
PROC: B44 Imaging, Lower Arteries, Ultrasonography (ICD-10-PCS; principal; 2021-08-03)
DX: F03.91 Unspecified dementia, unspecified severity, with behavioral disturbance (principal); I50.42 Chronic combined systolic (congestive) and diastolic (congestive) heart failure; I13.0 Hypertensive heart and chronic kidney disease with heart failure and stage 1 through stage 4 chronic kidney disease, or unspecified chronic kidney disease; N17.9 Acute kidney failure, unspecified; E11.22 Type 2 diabetes mellitus with diabetic chronic kidney disease; E78.5 Hyperlipidemia, unspecified; J45.909 Unspecified asthma, uncomplicated; I73.9 Peripheral vascular disease, unspecified; N18.30 Chronic kidney disease, stage 3 unspecified; Z86.73 Personal history of transient ischemic attack (TIA), and cerebral infarction without residual deficits; Z85.51 Personal history of malignant neoplasm of bladder; Z20.822 Contact with and (suspected) exposure to COVID-19; Z79.84 Long term (current) use of oral hypoglycemic drugs; Z79.82 Long term (current) use of aspirin; Z79.899 Other long term (current) drug therapy; I16.0 Hypertensive urgency; E11.42 Type 2 diabetes mellitus with diabetic polyneuropathy; Z89.429 Acquired absence of other toe(s), unspecified side; E11.51 Type 2 diabetes mellitus with diabetic peripheral angiopathy without gangrene; Z95.828 Presence of other vascular implants and grafts; R07.89 Other chest pain; R80.9 Proteinuria, unspecified; D64.9 Anemia, unspecified; M79.7 Fibromyalgia; I27.20 Pulmonary hypertension, unspecified; G62.9 Polyneuropathy, unspecified